=== PATIENT | female | born 1980 | race African-American/Black ===

== ENCOUNTER 2016-04-06 09:14 | Emergency (ER) | payer SELFPAY ==
[2016-04-06] MEDS ORDERED: DIAZEPAM INJ 10 MG/2 ML DISP.SYRIN IM ONE (10:20)
[2016-04-06] MEDS ORDERED: KETOROLAC TROMETHAMINE 60 MG/2 ML SDV IM ONE (10:20)
[2016-04-06] MEDS ORDERED: DEXAMETHASONE SOD PHOS INJ 10 MG/1 ML VIAL IM ONE (10:20)
--- NOTE | 2016-04-06 10:27 | ER Document Report ---
ED General - General Chief Complaint: Back Pain Stated Complaint: BACK PAIN Mode of Arrival: Medic Information source: Patient Notes: 35-year-old female who initially states she's never had any back problems in her life but then admits to having sciatic issues. Patient denies any numbness or weakness in the lower extremity's, denies any loss of bowel or bladder function. Patient notes it hurts when she moves yesterday she fell her back was tightening up patient denies any trauma or heavy lifting TRAVEL OUTSIDE OF THE [place] IN LAST 30 DAYS: No - HPI Onset: Yesterday Onset/Duration: Persistent Quality of pain: Achy Severity: Mild Pain Level: 1 Associated symptoms: Body/muscle aches Exacerbated by: Movement Relieved by: Denies Similar symptoms previously: No Recently seen / treated by doctor: Yes - Related Data Allergies/Adverse Reactions: amoxicillin [Amoxicillin] Allergy (Verified 04/06/16 09:25) Penicillins Allergy (Verified 04/06/16 09:25) Bees/Wasp Allergy (Uncoded 04/06/16 09:25) Past Medical History - Social History Smoking Status: Never Smoker Cigarette use (# per day): No Chew tobacco use (# tins/day): No Smoking Education Provided: No Frequency of alcohol use: None Drug Abuse: None Family History: Reviewed & Not Pertinent Patient has suicidal ideation: No Patient has homicidal ideation: No - Past Medical History Cardiac Medical History: Reports: Hx Hypercholesterolemia, Hx Hypertension Pulmonary Medical History: Reports: Hx Asthma, Hx Pneumonia Endocrine Medical History: Reports: Hx Diabetes Mellitus Type 2 Renal/ Medical History: Reports: Hx Kidney Stones. Denies: Hx Peritoneal Dialysis Psychiatric Medical History: Reports: Hx Anxiety, Hx Bipolar Disorder, Hx Depression Past Surgical History: Reports: Hx Cholecystectomy, Hx Herniorrhaphy, Hx Umbilical Hernia - Immunizations Immunizations up to date: No Hx Diphtheria, Pertussis, Tetanus Vaccination: Yes Hx Pneumococcal Vaccination: 07/28/15 Review of Systems - Review of Systems Notes: REVIEW OF SYSTEMS: CONSTITUTIONAL : Denies fever, chills, or sweats. Denies recent illness. EENT: Denies eye, ear, throat, or mouth pain or symptoms. Denies nasal or sinus congestion or discharge. Denies throat, tongue, or mouth swelling or difficulty swallowing. CARDIOVASCULAR: Denies chest pain. Denies palpitations or racing or irregular heart beat. Denies ankle edema. RESPIRATORY: Denies cough, cold, or chest congestion. Denies shortness of breath, difficulty breathing, or wheezing. GASTROINTESTINAL: Denies abdominal pain or distention. Denies nausea, vomiting , or diarrhea. Denies blood in vomitus, stools, or per rectum. Denies black, tarry stools. Denies constipation. GENITOURINARY: Denies difficulty urinating, painful urination, burning, frequency, blood in urine, or discharge. FEMALE GENITOURINARY: Denies vaginal bleeding, heavy or abnormal periods, irregular periods. Denies vaginal discharge or odor. MUSCULOSKELETAL: Admits to back pain SKIN: Denies rash, lesions or sores. HEMATOLOGIC : Denies easy bruising or bleeding. LYMPHATIC: Denies swollen, enlarged glands. NEUROLOGICAL: Denies confusion or altered mental status. Denies passing out or loss of consciousness. Denies dizziness or lightheadedness. Denies headache. Denies weakness or paralysis or loss of use of either side. Denies problems with gait or speech. Denies sensory loss, numbness, or tingling. Denies seizures. PSYCHIATRIC: Denies anxiety or stress. Denies depression, suicidal ideation, or homicidal ideation. ALL OTHER SYSTEMS REVIEWED AND NEGATIVE. Dictation was performed using [employer] voice recognition software PHYSICAL EXAMINATION: GENERAL: Well-appearing, well-nourished and in no acute distress. HEAD: Atraumatic, normocephalic. EYES: Pupils equal round and reactive to light, extraocular movements intact, conjunctiva are normal. ENT: Nares patent, oropharynx clear without exudates. Moist mucous membranes. NECK: Normal range of motion, supple without lymphadenopathy LUNGS: Breath sounds clear to auscultation bilaterally and equal. No wheezes rales or rhonchi. HEART: Regular rate and rhythm without murmurs ABDOMEN: Soft, nontender, nondistended abdomen. No guarding, no rebound. No masses appreciated. Female : deferred Musculoskeletal: Tenderness on palpation of the L1-L5 region NEUROLOGICAL: Cranial nerves grossly intact. Normal speech, normal gait. Normal sensory, motor exams PSYCH: Normal mood, normal affect. SKIN: Warm, Dry, normal turgor, no rashes or lesions noted. Physical Exam - Vital signs Vitals: Temp Pulse Resp BP Pulse Ox 97.7 F 81 20 176/94 H 97 04/06/16 09:23 04/06/16 09:23 04/06/16 09:23 04/06/16 09:23 04/06/16 09:23 Course - Re-evaluation Re-evalutation: 04/06/16 10:22 Given that there is no neurological deficits patient will be treated for her muscle tightness with steroids and anti-inflammatories. Patient has been instructed on side effects of medications After performing a Medical Screening Examination, I estimate there is LOW risk for EXPANDING OR RUPTURED ABDOMINAL AORTIC ANEURYSM, CAUDA EQUINA SYNDROME, EPIDURAL MASS LESION, or HERNIATED DISK CAUSING SEVERE SPINAL STENOSIS, thus I consider the discharge disposition reasonable. The patient and I have discussed the diagnosis and risks, and we agree with discharging home and close follow-up. We also discussed returning to the Emergency Department immediately if new or worsening symptoms occur with the understanding that symptoms and presentations can change. We have discussed the symptoms which are most concerning (e.g., saddle anesthesia, urinary or bowel incontinence or retention , changing or worsening pain) that necessitate immediate return. - Vital Signs Vital signs: Temp Pulse Resp BP Pulse Ox 97.7 F 81 20 176/94 H 97 04/06/16 09:23 04/06/16 09:23 04/06/16 09:23 04/06/16 09:23 04/06/16 09:23 Discharge - Discharge Clinical Impression: Back pain Qualifiers: Back pain location: low back pain Chronicity: acute Back pain laterality: bilateral Sciatica presence: without sciatica Qualified Code(s): M54.5 - Low back pain Condition: Stable Disposition: HOME, SELF-CARE Instructions: Low Back Pain ([facility]) Additional Instructions: Follow up with your physician tomorrow for further care or return to the ED IMMEDIATELY if symptoms worsen or new concerns occur Prescriptions: Diazepam [Valium 5 mg Tablet] 5 mg PO QIDP PRN #15 tablet PRN Reason: Hydrocodone/Acetaminophen [[place] 5-325 mg Tablet] 1 tab PO Q6 #10 tablet
[2016-04-06 10:42] VITALS: BP 152/91
== END 2016-04-06 11:39 | disposition home or self-care (01) ==
LOC: ER 09:14
DX: M54.5 Low back pain (principal); W19.XXXA Unspecified fall, initial encounter; E11.9 Type 2 diabetes mellitus without complications; I10 Essential (primary) hypertension; J45.909 Unspecified asthma, uncomplicated; Z88.0 Allergy status to penicillin; Z91.030 Bee allergy status; Z91.038 Other insect allergy status
CPT/HCPCS: 99283; 96372; J3360; J1885; J1100

== ENCOUNTER 2016-05-06 18:37 | Emergency (ER) | payer OTHER ==
[2016-05-06] MEDS ORDERED: ACETAMINOPHEN 325 MG TABLET PO ONE (19:01)
[2016-05-06] MEDS ORDERED: IPRATROPIUM/ALBUTEROL 0.5-2.5 MG/3 ML AMPUL NEB ONE (19:03)
--- NOTE | 2016-05-06 19:08 | ER Document Report ---
ED Medical Screen (RME) - General Stated Complaint: CHEST PAIN Mode of Arrival: Medic Information source: Patient Notes: 35-year-old female presents to the emergency department via EMS complaining of cough, shortness of breath, body aches, and fever over the last 2 days. Reports history of asthma. Was given Solu-Medrol 125 mg IV and DuoNeb treatment prior to arrival. I have greeted and performed a rapid initial assessment of this patient. A comprehensive ED assessment and evaluation of the patient, analysis of test results and completion of the medical decision making process will be conducted by additional ED providers. TRAVEL OUTSIDE OF THE [place] IN LAST 30 DAYS: No - Related Data Allergies/Adverse Reactions: amoxicillin [Amoxicillin] Allergy (Verified 05/06/16 19:02) Penicillins Allergy (Verified 05/06/16 19:02) Bees/Wasp Allergy (Uncoded 05/06/16 19:02) Past Medical History - Social History Chew tobacco use (# tins/day): No Frequency of alcohol use: None Drug Abuse: None Family history: CAD, DM, Hypertension, Malignancy - Past Medical History Cardiac Medical History: Reports: Hx Hypercholesterolemia, Hx Hypertension Pulmonary Medical History: Reports: Hx Asthma, Hx Pneumonia Endocrine Medical History: Reports: Hx Diabetes Mellitus Type 2 Renal/ Medical History: Reports: Hx Kidney Stones. Denies: Hx Peritoneal Dialysis Psychiatric Medical History: Reports: Hx Anxiety, Hx Bipolar Disorder, Hx Depression Past Surgical History: Reports: Hx Cholecystectomy, Hx Herniorrhaphy, Hx Umbilical Hernia - Immunizations Immunizations up to date: No Hx Diphtheria, Pertussis, Tetanus Vaccination: Yes Physical Exam - General General appearance: Alert In distress: Mild - Respiratory Respiratory status: No respiratory distress Breath sounds: Nonproductive cough, Wheezing - Expiratory - Cardiovascular Rhythm: Tachycardia Pulses: Normal: Radial Normal capillary refill: Yes
[2016-05-06] MEDS ORDERED: ALBUTEROL SULFATE 0.083% NEB 2.5 MG/3 ML AMPUL NEB SCH (19:19)
[2016-05-06] MEDS ORDERED: ONDANSETRON 4 MG TAB.RAPDIS PO ONE (19:52)
[2016-05-06 19:56] LABS: ABSOLUTE LYMPHOCYTES (AUTO) 0.9 10^3/uL (0.5-4.7); ABSOLUTE NEUT (AUTO) 10.7 10^3/uL (1.7-8.2); BASOPHILS % (AUTO) 0.2 % (0-2); EOSINOPHILS % (AUTO) 0.1 % (0-6); HEMATOCRIT 40.1 % (36.0-47.0); HEMOGLOBIN 13.4 g/dL (12.0-15.5); HGB HCT DIFFERENCE 0.1; LYMPHOCYTES % (AUTO) 7.2 % (13-45); MEAN CORPUSCULAR HEMOGLOBIN 25.2 pg (27.0-33.4); MEAN CORPUSCULAR HGB CONC 33.3 g/dL (32.0-36.0); MEAN CORPUSCULAR VOLUME 76 fl (80-97); MONOCYTES % (AUTO) 7.7 % (3-13); SEGMENTED NEUTROPHILS % (AUTO) 84.8 % (42-78); WHITE BLOOD COUNT 12.6 10^3/uL (4.0-10.5)
[2016-05-06 20:20] LABS: ALANINE AMINOTRANSFERASE 36 U/L (9-52); ALBUMIN 3.8 g/dL (3.5-5.0); ALKALINE PHOSPHATASE 72 U/L (38-126); ANION GAP 15 (5-19); ASPARTATE AMINO TRANSFERASE 26 U/L (14-36); BILIRUBIN,TOTAL 0.9 mg/dL (0.2-1.3); BLOOD UREA NITROGEN 11 mg/dL (7-20); CALCIUM 9.1 mg/dL (8.4-10.2); CARBON DIOXIDE 22 mmol/L (22-30); CHLORIDE 101 mmol/L (98-107); CREATININE RESULT 0.81 mg/dL (0.52-1.25); GLUCOSE 209 mg/dL (75-110); POTASSIUM 3.9 mmol/L (3.6-5.0); SODIUM 138.2 mmol/L (137-145); TOTAL PROTEIN 7.1 g/dL (6.3-8.2)
[2016-05-06 20:55] LABS: APPEARANCE,URINE SLIGHTLY-CLOUDY; BILIRUBIN,URINE NEGATIVE (NEGATIVE); GLUCOSE, URINE 50 mg/dL (NEGATIVE); KETONES,URINE TRACE mg/dL (NEGATIVE); LEUKOCYTE ESTERASE,URINE NEGATIVE (NEGATIVE); NITRITE,URINE NEGATIVE (NEGATIVE); PROTEIN,URINE NEGATIVE (NEGATIVE); URINE SPECIFIC GRAVITY 1.013; UROBILINOGEN,URINE NEGATIVE mg/dL (<2.0)
[2016-05-06] MEDS ORDERED: KETOROLAC TROMETHAMINE INJ/PF 30 MG/1 ML SDV IV ONE (22:56)
[2016-05-06] MEDS ORDERED: NORMAL SALINE 1000 ML 1,000 ML IV ONE (22:56)
[2016-05-06] MEDS ORDERED: AZITHROMYCIN 250 MG TABLET PO ONE (22:57)
--- NOTE | 2016-05-06 23:22 | ER Document Report ---
ED General - General Chief Complaint: Breathing Difficulty Stated Complaint: CHEST PAIN Mode of Arrival: Medic Notes: Patient is a 35 year old female presents for complaint of fevers, cough, chest pain. She says she has a slight headache. She says she was around a kid 2 days ago had fever and some of symptoms. She is a diabetic. She is type II and takes oral medications for this. She denies any vomiting or diarrhea. Fever of 102 in triage. She has some body aches. No other complaints at this time. TRAVEL OUTSIDE OF THE [place] IN LAST 30 DAYS: No - Related Data Allergies/Adverse Reactions: amoxicillin [Amoxicillin] Allergy (Verified 05/06/16 19:02) Penicillins Allergy (Verified 05/06/16 19:02) Bees/Wasp Allergy (Uncoded 05/06/16 19:02) Past Medical History - General Information source: Patient - Social History Smoking Status: Former Smoker Chew tobacco use (# tins/day): No Frequency of alcohol use: None Drug Abuse: None Family History: Reviewed & Not Pertinent Patient has suicidal ideation: No Patient has homicidal ideation: No - Past Medical History Cardiac Medical History: Reports: Hx Hypercholesterolemia, Hx Hypertension Pulmonary Medical History: Reports: Hx Asthma, Hx Pneumonia Endocrine Medical History: Reports: Hx Diabetes Mellitus Type 2 Renal/ Medical History: Reports: Hx Kidney Stones. Denies: Hx Peritoneal Dialysis Psychiatric Medical History: Reports: Hx Anxiety, Hx Bipolar Disorder, Hx Depression Past Surgical History: Reports: Hx Cholecystectomy, Hx Herniorrhaphy, Hx Umbilical Hernia - Immunizations Immunizations up to date: No Hx Diphtheria, Pertussis, Tetanus Vaccination: Yes Hx Pneumococcal Vaccination: 07/28/15 Review of Systems - Review of Systems Notes: My Normal Review Basic REVIEW OF SYSTEMS: CONSTITUTIONAL : Fever EENT: Nasal congestion CARDIOVASCULAR: Denies chest pain. RESPIRATORY: Recurrent cough GASTROINTESTINAL: Denies abdominal pain. Denies nausea, vomiting, or diarrhea. Denies constipation. Last BM: FEMALE GENITOURINARY: Denies vaginal bleeding, abnormal or irregular periods. No dysuria MUSCULOSKELETAL: Denies neck or back pain or joint pain or swelling. SKIN: Denies rash or skin lesions. NEUROLOGICAL: Denies altered mental status or loss of consciousness. Denies headache. Denies weakness or paralysis or loss of use of either side. Denies problems with gait or speech. Denies sensory or motor loss. ALL OTHER SYSTEMS REVIEWED AND NEGATIVE. Physical Exam - Vital signs Vitals: Temp Pulse Resp BP Pulse Ox 102.3 F H 124 H 28 H 154/93 H 94 05/06/16 19:02 05/06/16 19:02 05/06/16 19:02 05/06/16 19:02 05/06/16 19:02 - Notes Notes: General Appearance: Well nourished, alert, cooperative, no acute distress, no obvious discomfort. Vitals: reviewed, See vital signs table. Head: no swelling or tenderness to the head Eyes: PERRL, EOMI, Conjuctiva clear Mouth: No decreasd moisture Throat: No tonsillar inflammation, No airway obstruction, No lymphadenopathy Neck: Supple, no neck tenderness, No thyromegaly Lungs: No wheezing, No rales, No rhonci, No accessory muscle use, good air exchange bilaterally. Heart: Normal rate, Regular rythm, No murmur, no rub Abdomen: Normal BS, soft, No rigidity, No abdominal tenderness, No guarding, no rebound, no abdominal masses, no organomegaly Extremities: strength 5/5 in all extremities, good pulses in all extremities, no swelling or tenderness in the extremities, no edema. Skin: warm, dry, appropriate color, no rash Neuro: speech clear, oriented x 3, normal affect, responds appropriately to questions. Course - Vital Signs Vital signs: Temp Pulse Resp BP Pulse Ox 98.6 F 90 16 137/81 H 94 05/07/16 01:24 05/07/16 01:24 05/07/16 01:24 05/07/16 01:24 05/07/16 01:24 - Laboratory Result Diagrams: 05/06/16 19:40 05/06/16 19:40 Laboratory results interpreted by me: 05/06/16 05/06/16 05/06/16 19:40 19:40 20:30 WBC 12.6 H RBC 5.30 H MCV 76 L MCH 25.2 L RDW 16.0 H Seg Neutrophils % 84.8 H Lymphocytes % 7.2 L Absolute Neutrophils 10.7 H Glucose 209 H Urine Glucose (UA) 50 H Urine Ketones TRACE H Urine Ascorbic Acid 20 H - Transfer of Care Notes: 05/07/16 06:21 Patient looks well and reevaluation. Her vital signs are normal. Fevers resolved. I feel she is safe to be discharged home. I encourage them to return to the ER if she has difficulty breathing, high fevers, or she feels that she is worsening. Patient agrees with plan and will be discharged home. Dictation of this chart was performed using voice recognition software; therefore, there may be some unintended grammatical errors. 05/07/16 06:21 Discharge - Discharge Clinical Impression: Cough, bodyaches Fever Qualifiers: Fever type: unspecified Qualified Code(s): R50.9 - Fever, unspecified Condition: Good Disposition: HOME, SELF-CARE Additional Instructions: Please take the medications as prescribed. Please take Tylenol or Motrin for your fevers. Please return to the ER if you have worsening difficulty breathing , high fevers, recurrent vomiting, or feel unwell. Please follow up with your doctor for reevaluation in 1-2 days. Forms: Return to Work
[2016-05-07 01:31] VITALS: BP 137/81
--- NOTE | 2016-05-07 16:56 | EKG REPORT ---
SEVERITY:- ABNORMAL ECG - SINUS TACHYCARDIA ABNORMAL Q SUGGESTS ANTERIOR INFARCT ABNORMAL T, CONSIDER ISCHEMIA, LATERAL LEADS : Confirmed by: Heaven Marshall MD 07-May-2016 16:55:29
== END 2016-05-07 01:33 | disposition home or self-care (01) ==
LOC: ER 18:37
DX: R05 Cough (principal); R07.9 Chest pain, unspecified; R50.9 Fever, unspecified; R51 Headache; J45.909 Unspecified asthma, uncomplicated; R09.81 Nasal congestion; E11.9 Type 2 diabetes mellitus without complications; I10 Essential (primary) hypertension; Z79.84 Long term (current) use of oral hypoglycemic drugs; Z88.0 Allergy status to penicillin; Z91.030 Bee allergy status; Z91.038 Other insect allergy status; Z87.891 Personal history of nicotine dependence; Z87.01 Personal history of pneumonia (recurrent)
CPT/HCPCS: 93005; 94640 ×2; 99285; 96361; 96374; 36415; 85025; 81025; 80053; 81001; 87804; 71020; 93010; S0119; J1885; J7030; J7620

== ENCOUNTER 2016-05-08 05:52 | Emergency (ER) | payer OTHER ==
--- NOTE | 2016-05-08 06:15 | ER Document Report ---
ED Respiratory Problem - General Mode of Arrival: Medic Information source: Patient TRAVEL OUTSIDE OF THE [place] IN LAST 30 DAYS: No - HPI Patient complains to provider of: Other - Difficulty breathing Onset: Yesterday - evening Associated symptoms: Other - See above <LAURA BASS - Last Filed: 05/08/16 06:29> <DIAMANTE VICK - Last Filed: 05/08/16 10:11> - General Chief Complaint: Breathing Difficulty Stated Complaint: DIFFICULTY BREATHING Notes: Patient is a 35 year old female, with a past medical history including type II diabetes and asthma, who presents to the emergency department via EMS complaining of difficulty breathing onset yesterday evening. Patient also complains of a productive cough with spit-like sputum which has now become a dry and painful cough, fevers, and congestion. Patient reports that she has been using her inhaler and nebulizer treatments at home with little to no relief. Patient was seen at this facility two days ago for similar complaints and was given breathing treatments, Toradol, IV fluids, and Zithromax. Patient states that she was feeling better when she went home yesterday but that it worsened again last night. PCP: [facility] (LAURA BASS) - Related Data Allergies/Adverse Reactions: amoxicillin [Amoxicillin] Allergy (Verified 05/06/16 19:02) Penicillins Allergy (Verified 05/06/16 19:02) Bees/Wasp Allergy (Uncoded 05/06/16 19:02) Past Medical History - General Information source: Patient - Social History Smoking Status: Unknown if Ever Smoked Family History: Reviewed & Not Pertinent - Past Medical History Cardiac Medical History: Reports: Hx Hypercholesterolemia, Hx Hypertension Pulmonary Medical History: Reports: Hx Asthma, Hx Pneumonia Endocrine Medical History: Reports: Hx Diabetes Mellitus Type 2 Renal/ Medical History: Reports: Hx Kidney Stones Psychiatric Medical History: Reports: Hx Anxiety, Hx Bipolar Disorder, Hx Depression Past Surgical History: Reports: Hx Cholecystectomy, Hx Herniorrhaphy, Hx Umbilical Hernia - Immunizations Immunizations up to date: No Hx Diphtheria, Pertussis, Tetanus Vaccination: Yes Hx Pneumococcal Vaccination: 07/28/15 <LAURA BASS - Last Filed: 05/08/16 06:29> Review of Systems - Review of Systems Constitutional: See HPI, Fever EENT: See HPI, Nose congestion Cardiovascular: No symptoms reported Respiratory: See HPI, Cough, Sputum - saliva-like, Other - Difficulty breathing Gastrointestinal: No symptoms reported Genitourinary: No symptoms reported Female Genitourinary: No symptoms reported Musculoskeletal: No symptoms reported Skin: No symptoms reported Hematologic/Lymphatic: No symptoms reported Neurological/Psychological: No symptoms reported -: Yes All other systems reviewed and negative <LAURA BASS - Last Filed: 05/08/16 06:29> Physical Exam - Vital signs Interpretation: Tachypneic - mild - General General appearance: Appears well, Alert - HEENT Head: Normocephalic, Atraumatic Pharynx: Normal - Respiratory Respiratory status: Tachypnea - mild Breath sounds: Nonproductive cough, Wheezing - Diffuse expiratory Chest palpation: Normal - Cardiovascular Rhythm: Regular Heart sounds: Normal auscultation Murmur: No - Abdominal Inspection: Morbidly Obese - Back Back: Normal, Nontender - Extremities General upper extremity: Normal inspection General lower extremity: Normal inspection - Neurological Neuro grossly intact: Yes Cognition: Normal Orientation: AAOx4 Cassandra Coma Scale Eye Opening: Spontaneous Cassandra Coma Scale Verbal: Oriented Cassandra Coma Scale Motor: Obeys Commands Cassanrda Coma Scale Total: 15 Speech: Normal - Psychological Associated symptoms: Normal affect, Normal mood - Skin Skin Temperature: Warm Skin Moisture: Dry Skin Color: Normal <LAURA BASS - Last Filed: 05/08/16 06:29> Course <LAURA BASS - Last Filed: 05/08/16 06:29> - Laboratory Result Diagrams: 05/08/16 06:55 05/08/16 06:55 - Diagnostic Test Radiology reviewed: Image reviewed, Reports reviewed - Chest x-ray shows reactive airways disease without infiltrate <DIAMANTE VICK - Last Filed: 05/08/16 10:11> - Re-evaluation Re-evalutation: 05/08/16 08:25 The patient's blood pressure is quite high. She states she takes her lisinopril in the mornings and takes her metoprolol morning and evening. She also takes hydrochlorothiazide in the morning. She did not have any of her morning medications prior to coming to the emergency room. She reports her blood sugars usually run around 200 when she checks at home. She does not check her blood pressure home. Her blood sugar is 381 today with an A1c of 9.6, she was not put on steroids when she was here 2 days ago. She takes glipizide and metformin twice daily, along with Victoza. She states that she has lost a lot of weight, reviewing the chart shows at least a 60 pound weight loss in the past year. (DIAMANTE VICK) - Vital Signs Vital signs: Temp Pulse Resp BP Pulse Ox 98.9 F 34 H 144/97 H 87 L 05/08/16 07:39 05/08/16 09:06 05/08/16 09:06 05/08/16 09:01 (LAURA BASS) (DIAMANTE VICK) - Laboratory Laboratory results interpreted by me: 05/08/16 05/08/16 05/08/16 06:55 06:55 06:55 MCV 77 L MCH 25.4 L RDW 15.8 H Glucose 381 H Hemoglobin A1c % 9.6 H (DIAMANTE VICK) Discharge <LAURA BASS - Last Filed: 05/08/16 06:29> <DIAMANTE VICK - Last Filed: 05/08/16 10:11> - Discharge Clinical Impression: Acute bronchitis with bronchospasm, Poorly controlled diabetes mellitus, Poorly -controlled hypertension, Wheezing Condition: Stable Disposition: HOME, SELF-CARE Additional Instructions: Bronchitis with Bronchospasm (Wheezing): You have bronchitis with bronchospasm (wheezing). Sometimes people develop wheezing with a chest cold. This occurs either because of an underlying tendency toward asthma or because the virus itself irritates the bronchial tubes. This irritation causes cough, shortness of breath, and wheezing. Emergency treatment of bronchospasm may include adrenaline shots or bronchodilator aerosol. You may feel lightheaded and have a rapid pulse for an hour or two. Rest and get plenty of fluids. At home, we'll treat you with a bronchodilator inhaler. Corticosteroids may be required for some patients. Until you recover, avoid chemical fumes, dusts, pollens, and exercising in very cold or dry air. If you smoke, stop now! Most cases of bronchitis get better without antibiotics. We prescribe antibiotics when we believe bacteria are damaging your airways, or if there's high risk the bronchitis will worsen into pneumonia. Increase your fluid intake. A cool mist humidifier may make your lungs more comfortable. An expectorant (cough medicine that loosens phlegm) can help. Repeated episodes of bronchitis and bronchospasm may result in lung damage -- for example, chronic bronchitis, recurrent pneumonias, or emphysema. If you develop a fever, increased wheezing, chest pain, or severe shortness of breath, you should contact the doctor immediately. //////////////////////////////////////////////////////////////////////////////// //////////////////////////////////////////////////////////////////////////////// /////////////// Your blood pressure and blood sugars were quite high this morning. You will need additional medications to get better control of your blood pressure and blood sugars. For now you should continue your regular medications. Use the albuterol inhaler 2 puffs every 4 hours for wheezing. Start the prednisone prescription tomorrow--this will make your blood sugars run higher so you will need to drink plenty of extra water. Start the azithromycin ascription tomorrow. Get plenty of rest. Follow-up with a local medical doctor this week to review your blood pressure and blood sugar control. You will probably need additional medications. RETURN TO THE EMERGENCY ROOM IF ANY NEW OR WORSENING SYMPTOMS. Prescriptions: Azithromycin [Zithromax 250 mg Tablet] 250 mg PO DAILY #4 tablet Prednisone 10 mg PO TID #15 tablet Scribe Attestation: 05/08/16 10:11 I personally performed the services described in the documentation, reviewed and edited the documentation which was dictated to the scribe in my presence, and it accurately records my words and actions. (DIAMANTE VICK) Scribe Documentation - Scribe Written by Anderson:: anderson Frederick, 05/08/16, 0634 acting as scribe for :: [place] <BASS,LAURA - Last Filed: 05/08/16 06:29>
[2016-05-08] MEDS ORDERED: ALBUTEROL SULFATE 0.083% NEB 2.5 MG/3 ML AMPUL NEB ONE ×2 (06:18→07:46)
[2016-05-08] MEDS ORDERED: PREDNISONE 20 MG TABLET PO ONE (06:18)
[2016-05-08 07:01] LABS: ABSOLUTE MONOCYTES (AUTO) 0.9 10^3/uL (0.1-1.4); ABSOLUTE NEUT (AUTO) 5.3 10^3/uL (1.7-8.2); BASOPHILS % (AUTO) 0.3 % (0-2); HEMATOCRIT 39.6 % (36.0-47.0); HGB HCT DIFFERENCE -0.6; LYMPHOCYTES % (AUTO) 13.9 % (13-45); MEAN CORPUSCULAR HEMOGLOBIN 25.4 pg (27.0-33.4); MEAN CORPUSCULAR HGB CONC 32.9 g/dL (32.0-36.0); MEAN CORPUSCULAR VOLUME 77 fl (80-97); MONOCYTES % (AUTO) 12.3 % (3-13); RED BLOOD COUNT 5.13 10^6/uL (3.72-5.28); RED CELL DISTRIBUTION WIDTH 15.8 % (11.5-14.0); SEGMENTED NEUTROPHILS % (AUTO) 73.5 % (42-78); WHITE BLOOD COUNT 7.2 10^3/uL (4.0-10.5)
[2016-05-08 07:15] LABS: ALANINE AMINOTRANSFERASE 40 U/L (9-52); ALKALINE PHOSPHATASE 62 U/L (38-126); ANION GAP 12 (5-19); ASPARTATE AMINO TRANSFERASE 35 U/L (14-36); BILIRUBIN,TOTAL 0.5 mg/dL (0.2-1.3); BLOOD UREA NITROGEN 13 mg/dL (7-20); CALCIUM 8.8 mg/dL (8.4-10.2); CARBON DIOXIDE 24 mmol/L (22-30); CHLORIDE 105 mmol/L (98-107); GLUCOSE 381 mg/dL (75-110); POTASSIUM 4.1 mmol/L (3.6-5.0); TOTAL PROTEIN 6.8 g/dL (6.3-8.2)
[2016-05-08] MEDS ORDERED: CLONIDINE HCL 0.2 MG TABLET PO ONE (07:51)
[2016-05-08] MEDS ORDERED: METOPROLOL TARTRATE 25 MG TABLET PO ONE (08:31)
[2016-05-08] MEDS ORDERED: INSULIN REG, HUMAN 100 UNIT/ML 3 ML VIAL (PYX) SUBCUT ONE (08:32)
[2016-05-08] MEDS ORDERED: ONDANSETRON 4 MG TAB.RAPDIS PO ONE (09:14)
[2016-05-08] MEDS ORDERED: AZITHROMYCIN 250 MG TABLET PO ONE (10:06)
[2016-05-08] MEDS ORDERED: ALBUTEROL SULFATE HFA (90 MCG/PUFF) 8 GM MDI (1 MDI/ER DISP) IH ONE (10:07)
[2016-05-08 10:14] VITALS: BP 138/94
== END 2016-05-08 10:25 | disposition home or self-care (01) ==
LOC: ER 05:52
DX: J20.9 Acute bronchitis, unspecified (principal); E11.9 Type 2 diabetes mellitus without complications; I10 Essential (primary) hypertension; R06.02 Shortness of breath; J45.909 Unspecified asthma, uncomplicated; Z79.899 Other long term (current) drug therapy
CPT/HCPCS: 94640 ×2; 99285; 36415; 84703; 85025; 80053; 83036; 71020; S0119; J7512; J1815; J3490

== ENCOUNTER 2016-05-09 19:27 | Inpatient (IN) | payer OTHER ==
[2016-05-09] MEDS ORDERED: NORMAL SALINE 1000 ML 1,000 ML IV ONE (19:44)
[2016-05-09] MEDS ORDERED: ONDANSETRON HCL INJ/PF 4 MG/2 ML SDV IV ONE (19:44)
[2016-05-09] MEDS ORDERED: IPRATROPIUM/ALBUTEROL 0.5-2.5 MG/3 ML AMPUL NEB ONE (19:45)
--- NOTE | 2016-05-09 19:47 | ER Document Report ---
ED Respiratory Problem - General Stated Complaint: DIFFICULTY BREATHING Time seen by provider: 19:40 Notes: Patient is a 35-year-old female that comes emergency department for chief complaint of difficulty breathing, patient has a history of asthma, is using her inhaler/nebulizer at home, placed on prednisone and azithromycin yesterday after being evaluated. She states she has been sick for 4 days now, initially she had daily nausea and vomiting with fevers, now she has frequent cough with fevers and frequent wheezing. She has not had influenza vaccine. She states she has not slept for a couple of days because she cannot lie flat. Patient has had admissions to the hospital for asthma and pneumonia, denies ever getting intubated. TRAVEL OUTSIDE OF THE [place] IN LAST 30 DAYS: No - Related Data Allergies/Adverse Reactions: amoxicillin [Amoxicillin] Allergy (Verified 05/06/16 19:02) Penicillins Allergy (Verified 05/06/16 19:02) Bees/Wasp Allergy (Uncoded 05/06/16 19:02) Past Medical History - General Information source: Patient - Social History Smoking Status: Never Smoker Frequency of alcohol use: None Drug Abuse: None Lives with: Family Family History: Reviewed & Not Pertinent - Past Medical History Cardiac Medical History: Reports: Hx Hypercholesterolemia, Hx Hypertension Pulmonary Medical History: Reports: Hx Asthma, Hx Pneumonia Endocrine Medical History: Reports: Hx Diabetes Mellitus Type 2 Renal/ Medical History: Reports: Hx Kidney Stones. Denies: Hx Peritoneal Dialysis Psychiatric Medical History: Reports: Hx Anxiety, Hx Bipolar Disorder, Hx Depression Past Surgical History: Reports: Hx Cholecystectomy, Hx Herniorrhaphy, Hx Umbilical Hernia - Immunizations Immunizations up to date: No Hx Diphtheria, Pertussis, Tetanus Vaccination: Yes Hx Pneumococcal Vaccination: 07/28/15 Review of Systems - Review of Systems Constitutional: See HPI EENT: No symptoms reported Cardiovascular: No symptoms reported Respiratory: See HPI Gastrointestinal: No symptoms reported Genitourinary: No symptoms reported Female Genitourinary: No symptoms reported Musculoskeletal: No symptoms reported Skin: No symptoms reported Hematologic/Lymphatic: No symptoms reported Neurological/Psychological: No symptoms reported Physical Exam - Vital signs Vitals: Resp 15 05/09/16 19:34 Interpretation: Normal - General General appearance: Anxious In distress: Mild - Patient is audibly wheezing with tachypnea - HEENT Head: Normocephalic, Atraumatic Eyes: Normal Conjunctiva: Normal Extraocular movements intact: Yes Eyelashes: Normal Pupils: PERRL Nasal: Normal Mouth/Lips: Normal Mucous membranes: Normal Pharynx: Normal Neck: Normal - Respiratory Respiratory status: Labored, Tachypnea Breath sounds: Decreased air movement, Wheezing - Wheezing bilaterally throughout - Cardiovascular Rhythm: Regular. No: Tachycardia Heart sounds: Normal auscultation, S1 appreciated, S2 appreciated Murmur: No - Abdominal Inspection: Normal Distension: No distension Bowel sounds: Normal Tenderness: Nontender. No: Tender, Guarding - Back Back: Normal, Nontender. No: Tender - Extremities General upper extremity: Normal inspection, Nontender, Normal strength, Normal temperature General lower extremity: Normal inspection, Nontender, Normal strength, Normal temperature - Neurological Neuro grossly intact: Yes Cognition: Normal Orientation: AAOx4 Kiel Coma Scale Eye Opening: Spontaneous Cassandra Coma Scale Verbal: Oriented Cassandra Coma Scale Motor: Obeys Commands Kiel Coma Scale Total: 15 Speech: Normal Cranial nerves: Normal Cerebellar coordination: Normal Motor strength normal: LUE, RUE, LLE, RLE Additional motor exam normals: Equal copy lathe tender Sensory: Normal - Psychological Associated symptoms: Anxious - Skin Skin Temperature: Warm Skin Moisture: Dry Skin Color: Normal Course - Re-evaluation Re-evalutation: On initial examination patient with tachypnea, decreased air movement and wheezes throughout, no tachycardia, patient is not hypoxic at this time, placed on 4 L nasal cannula, will monitor closely. On reevaluation patient noted to still have tachypnea, oxygen is trending down to the lower 90s even on 4 L nasal cannula, patient does not have significant improvement in wheezing, placed on BiPAP. Discussed with Dr. Byrd per [facility] protocol. After initiating BiPAP patient began to relax, still has wheezing but respiratory distress has resolved. Hypoxia resolved. CBC, chemistry, VBG, chest x-ray unremarkable. Chest x-ray is unremarkable. Patient continues to appear improved although she still has wheezing on examination. 05/10/[address] Alatorre, internal medicine, patient will be admitted to [facility]. - Vital Signs Vital signs: Temp Pulse Resp BP Pulse Ox 98.8 F 23 H 138/90 H 94 05/09/16 20:06 05/10/16 04:45 05/10/16 04:31 05/10/16 04:45 - Laboratory Result Diagrams: 05/09/16 20:06 05/09/16 20:06 Laboratory results interpreted by me: 05/09/16 05/09/16 05/09/16 20:06 20:06 20:06 RBC 5.59 H MCV 77 L MCH 25.0 L RDW 15.6 H Sodium 135.9 L Chloride 97 L Glucose 241 H Creatine Kinase 219 H Urine Glucose (UA) 05/09/16 05/10/16 20:56 00:38 RBC MCV MCH RDW Sodium Chloride Glucose Creatine Kinase 188 H Urine Glucose (UA) 150 H Critical Care Note - Critical Care Note Total time excluding time spent on procedures (mins): 34 - respiratory distress , has exacerbation, hypoxia Comments: Please allow 35 minutes of critical care time for treatment of patient with asthma exacerbation and respiratory distress with hypoxia, treatments with DuoNeb's, oxygen, magnesium, and BiPAP therapy. Multiple re-evaluations. Consultation and admission to the hospital. Discharge - Discharge Clinical Impression: Asthma exacerbation, Hypoxia, Cough, Shortness of breath Condition: Stable Disposition: ADMITTED INPATIENT Admitting Provider: Hospitalist Unit Admitted: [facility]
[2016-05-09] MEDS: MAGNESIUM SULFATE/D5W 100 ML IV SCH ×2 (20:08→21:17)
[2016-05-09 20:44] LABS: ABSOLUTE LYMPHOCYTES (AUTO) 2.4 10^3/uL (0.5-4.7); ABSOLUTE MONOCYTES (AUTO) 0.7 10^3/uL (0.1-1.4); ABSOLUTE NEUT (AUTO) 6.2 10^3/uL (1.7-8.2); BASOPHILS % (AUTO) 0.5 % (0-2); EOSINOPHILS % (AUTO) 0.1 % (0-6); HEMATOCRIT 42.9 % (36.0-47.0); HGB HCT DIFFERENCE -0.9; LYMPHOCYTES % (AUTO) 25.8 % (13-45); MEAN CORPUSCULAR HGB CONC 32.6 g/dL (32.0-36.0); MEAN CORPUSCULAR VOLUME 77 fl (80-97); MONOCYTES % (AUTO) 7.3 % (3-13); RED BLOOD COUNT 5.59 10^6/uL (3.72-5.28); RED CELL DISTRIBUTION WIDTH 15.6 % (11.5-14.0); SEGMENTED NEUTROPHILS % (AUTO) 66.3 % (42-78); WHITE BLOOD COUNT 9.4 10^3/uL (4.0-10.5)
[2016-05-09 20:59] LABS: ALANINE AMINOTRANSFERASE 35 U/L (9-52); ALBUMIN 3.9 g/dL (3.5-5.0); ALKALINE PHOSPHATASE 67 U/L (38-126); ANION GAP 13 (5-19); ASPARTATE AMINO TRANSFERASE 28 U/L (14-36); BILIRUBIN,TOTAL 0.6 mg/dL (0.2-1.3); BLOOD UREA NITROGEN 14 mg/dL (7-20); CALCIUM 9.3 mg/dL (8.4-10.2); CARBON DIOXIDE 26 mmol/L (22-30); CHLORIDE 97 mmol/L (98-107); CREATININE RESULT 0.76 mg/dL (0.52-1.25); GLUCOSE 241 mg/dL (75-110); POTASSIUM 3.8 mmol/L (3.6-5.0); SODIUM 135.9 mmol/L (137-145); TOTAL PROTEIN 6.7 g/dL (6.3-8.2)
[2016-05-09 21:14] LABS: VENOUS BLOOD BASE EXCESS 2.3 mmol/L; VENOUS BLOOD PCO2 42.4 mmHg (35-63); VENOUS BLOOD PH 7.42 (7.30-7.42)
[2016-05-09 21:26] LABS: APPEARANCE,URINE CLEAR; BILIRUBIN,URINE NEGATIVE (NEGATIVE); GLUCOSE, URINE 150 mg/dL (NEGATIVE); KETONES,URINE NEGATIVE (NEGATIVE); LEUKOCYTE ESTERASE,URINE NEGATIVE (NEGATIVE); NITRITE,URINE NEGATIVE (NEGATIVE); PROTEIN,URINE NEGATIVE (NEGATIVE); URINE SPECIFIC GRAVITY 1.011; UROBILINOGEN,URINE NEGATIVE mg/dL (<2.0)
[2016-05-09 22:59] LABS: ADD ON TESTING BLD IN LAB ACKNOWLEDGE
[2016-05-09 23:17] LABS: CREATINE KINASE 219 U/L (30-135)
[2016-05-09 23:28] LABS: CREATINE KINASE MB 1.01 ng/mL (<4.55)
[2016-05-09 23:35] LABS: TROPONIN I 0.082 ng/mL
[2016-05-10 01:10] LABS: VENOUS BLOOD BASE EXCESS 1.5 mmol/L; VENOUS BLOOD HCO3 26.7 mmol/L (20-32); VENOUS BLOOD PCO2 44.2 mmHg (35-63); VENOUS BLOOD PH 7.4 (7.30-7.42)
[2016-05-10] MEDS ORDERED: DEXTROSE 40% GEL 15 GM TUBE PO PRN ×2 (01:19)
[2016-05-10] MEDS ORDERED: GLUCAGON,HUMAN RECOMB 1 MG INJ IM PRN (01:19)
[2016-05-10] MEDS ORDERED: DEXTROSE 50%-WATER 25 GM/50 ML DISP.SYRIN IV PRN ×2 (01:19)
[2016-05-10 01:22] LABS: CREATINE KINASE MB 0.95 ng/mL (<4.55); TROPONIN I 0.078 ng/mL
[2016-05-10] MEDS ORDERED: ALBUTEROL SULFATE 0.083% NEB 2.5 MG/3 ML AMPUL NEB PRN (01:25)
[2016-05-10] MEDS ORDERED: AZTREONAM INJ 1 GM VIAL IV PRN (01:30)
[2016-05-10] MEDS ORDERED: POTASSI CL 20 MEQ/NS 1L 1,000 ML IV PRN (01:30)
--- NOTE | 2016-05-10 01:45 | PDOC H&P ---
History of Present Illness Admission Date/PCP: 05/10/16 01:00 [facility] Patient complains of: Difficulty breathing History of Present Illness: DAYTON MENDOZA is a 35 year old morbidly obese [id number] diabetic -[place] female, with underlying asthma, possible coronary artery disease, hyperlipidemia, hypertension, distant history of peptic ulcer disease, eczema, and mild anxiety and depression, without suicidal or homicidal ideation , who presents to the emergency room for evaluation of a four-day history of slowly progressive difficulty breathing. Breathing difficulty is particularly noticeable with much of any exertion. Associated wheezing, along with nausea vomiting and subjective fever. Cough productive of phlegm. Breathing more comfortably now that she dottie been placed on BiPAP. Was seen in the emergency room on the and given prescriptions for prednisone and Zithromax, but these are still with pharmacy, and have not been picked up. She states She's had multiple admissions for asthma exacerbation over the past year. No prior intubation. Up-to-date with both flu and pneumonia vaccinations. 2-year-old niece with cough and fever recently. Intermittent chest discomfort, usually when her shortness of breath is at its worst. Currently pain-free. Patient has been discussed with emergency room nurse practitioner who evaluated the patient. . Laboratory results are listed in [facility] and are reviewed. X-ray summary results are listed below, with full report(s) reviewed. . EKG reviewed. And compared to a tracing from the of this month. Social history/personal habits: Single. No children. Unemployed. Lives alone. No tobacco or illicit drug use. A bottle of wine every 2 weeks. Allergies/adverse reactions are listed in [facility] and are reviewed. Uncertain if she can tolerate cephalosporins. Home medications are reviewed discussion with patient and are to be reconciled by nursing staff in [facility]. Home medications initially autopopulated into [employer] may not accurately reflect patient's true medications, dosages, and/or frequencies. REVIEW OF SYSTEMS: Constitutional: See history and present illness. Eyes: Wears glasses. ENT: No swallowing problems or complaints. No hearing problems or complaints. Pulmonary: See history and present illness. Cardiovascular: See history and present illness. Gastrointestinal: See history and present illness. Skin: No current complaints, including rashes. Hematologic: Easy bruising. Neurologic: No current complaints, including numbness or tingling. Musculoskeletal: No current complaints, including painful joints. Psychiatric: Mild Anxiety depression; denies suicidal or homicidal ideation. Endocrine: No current complaints, including polyuria. Genitourinary: No current complaints, including dysuria. PHYSICAL EXAMINATION: 5 feet 11 inches tall. 139 kg. BMI 42.7 kg/m. Temperature 98.3. 96% saturation on BiPAP 12/6, 35%. Respirations are 30, without obvious use of accessory respiratory muscles. Pulse 84 and regular. Morbidly obese otherwise well-developed -[place] female appearing approximately her stated age. Pleasant awake alert and cooperative. Somewhat anxious, although no lavon agitation. Maintaining airway well. BiPAP mask in place. Emergency room nurse Shala is present. Skin is warm and dry. No grossly obvious evidence of rash in areas of skin examined. No subcutaneous nodules palpated. ENT: Hearing grossly normal to normal conversation. Tongue midline on protrusion pink and slightly tacky. Exam slightly limited by BiPAP mask with attaching straps. Eyes: No scleral icterus. Pupils equal and reactive to light at 4 mm. [place] conjunctivae. Neck is supple and nontender to gentle active range of motion and palpation. Midline trachea. No palpable thyroid nodule mass enlargement or tenderness. Lymphatic: No palpable cervical or clavicular nodes. Neck and lymphatic exams limited by patient body habitus. Exam slightly limited by BiPAP mask with attaching straps. Psychiatric: Reasonable insight into acute and chronic medical issues. Oriented to time location and why here. Lungs: Auscultation reveals equal breath sounds bilaterally. Breath sounds are somewhat "tight." No use of accessory respiratory muscles. Brief mild expiratory wheezing, in the mid aspect of each hemithorax. Cardiovascular: Heart regular rate and rhythm, without gallop murmur or rub. No carotid or abdominal aortic bruits. No ankle or pedal edema. palpable dorsalis pedis pulses. Abdomen: soft, rather obese, nontender with positive bowel sounds. Unable to adequately evaluate abdomen for masses or organomegaly due to body habitus. Extremities: Feet are warm and dry. No calf tenderness to compression. No grossly obvious visual evidence of calf swelling. Gentle manipulation of lower extremities fails to reveal any obvious evidence of injury or instability to knees hips or ankles. Neurologic: Moves all 4 extremities grossly normally. Moves from supine to seated position without undue difficulty. Patellar reflexes absent. Absent Babinski. Light touch is slightly decreased at feet, a chronic finding according to patient.. Dorsiflexion and plantarflexion of feet 5 / 5 and symmetric. Past Medical History Cardiac Medical History: Reports: Hyperlipidema, Hypertension Pulmonary Medical History: Reports: Asthma, Pneumonia Neurological Medical History: Denies: Hemorrhagic CVA, Ischemic CVA, Seizures Endocrine Medical History: Reports: Diabetes Mellitus Type 2 Denies: Diabetes Mellitus Type 1 GI Medical History: Denies: Cirrhosis, Crohn's Disease, Hepatitis Psychiatric Medical History: Reports: Bipolar Disorder, Depression Infectious Medical History: Denies: Hepatitis B, Hepatitis C Past Surgical History Past Surgical History: Reports: Cholecystectomy, Herniorrhaphy Social History Information Source: Patient, Emergency Med Personnel, [facility], [facility] Records Lives with: Alone Frequency of Alcohol Use: Occasional Hx Recreational Drug Use: No Drugs: None Hx Prescription Drug Abuse: No - Advance Directive Resuscitation Status: Full Code Surrogate healthcare decision maker:: Mother Family History Family History: Reviewed & Not Pertinent Parental Family History Reviewed: Yes Children Family History Reviewed: NA Sibling(s) Family History Reviewed.: Yes Medication/Allergy Home Medications: Glipizide [Glucotrol 5 mg Tablet] 5 mg PO BIDACBS #60 tablet 04/15/15 Metformin HCl [Glucophage] 1,000 mg PO BID #60 tablet 04/15/15 Albuterol Sulfate [Ventolin Hfa 8 gm Mdi (1 Mdi/ER Disp)] 2 puff IH Q4HP PRN #1 inhaler 07/01/15 Fluticasone/Salmeterol [Advair 250-50 Diskus 14 Dose/Diskus] 1 inh IH Q12 #1 inhaler 07/01/15 Lisinopril [Prinivil 10 mg Tablet] 20 mg PO DAILY #30 tablet 07/01/15 Metoprolol Tartrate 25 mg PO BID 07/27/15 Ipratropium/Albuterol Sulfate [Duoneb 3 ml Ampul] 3 ml NEB RTQ6HP PRN #120 vial.neb 07/28/15 Montelukast Sodium [Singulair 10 mg Tablet] 10 mg PO QHS #30 tablet 07/28/15 Esomeprazole Magnesium [Nexium] 40 mg PO DAILY #30 capsule. 08/29/15 Aspirin [Ecotrin 81 mg EC Tablet] 81 mg PO DAILY #30 tbs 09/06/15 Atorvastatin Calcium [Lipitor 10 mg Tablet] 10 mg PO QHS #30 tablet 09/06/15 Prednisone 10 mg PO TID #15 tablet 05/08/16 Allergies/Adverse Reactions: amoxicillin [Amoxicillin] Allergy (Verified 05/06/16 19:02) Penicillins Allergy (Verified 05/06/16 19:02) Bees/Wasp Allergy (Uncoded 05/06/16 19:02) Physical Exam Vital Signs: Temp Pulse Resp BP Pulse Ox 98.8 F 17 144/85 H 97 05/09/16 20:06 05/09/16 23:00 05/09/16 22:01 05/09/16 23:00 Results Laboratory Results: 05/10/16 00:47 VBG pH 7.40 VBG pCO2 44.2 VBG HCO3 26.7 VBG Base Excess 1.5 05/10/16 05/10/16 00:38 00:38 Creatine Kinase 188 H CK-MB (CK-2) 0.95 Troponin I 0.078 Impressions: Chest X-Ray 05/09/16 20:07 IMPRESSION: NO ACUTE RADIOGRAPHIC FINDING IN THE CHEST. Assessment & Plan - Diagnosis (1) Acute and chronic respiratory failure Qualifiers: Respiratory failure complication: hypoxia Qualified Code(s): J96.21 - Acute and chronic respiratory failure with hypoxia Is this a current diagnosis for this admission?: YesPlan: Patient will be admitted under pneumonia protocol. Incentive spirometry twice a day. Scheduled DuoNeb's. PRN albuterol nebs Solu-Medrol IV Pepcid for gastritis prophylaxis. Antibiotics will consist of Rocephin and intravenous Zithromax. I strongly encouraged patient to notify staff should patient feel that respiratory status is worsening. Patient is a full code. I have strongly encouraged patient not to get out of bed without notifying staff , , to avoid a fall with injury. Knee high SCDs for DVT prophylaxis, along with subcutaneous heparin. Impression and plans were discussed with patient, who concurs. Time spent in evaluation and management of patient: 72 critical care minutes. (2) Asthma exacerbation Is this a current diagnosis for this admission?: Yes (3) Elevated troponin Is this a current diagnosis for this admission?: YesPlan: Chest pain-free at present no outward evidence of acute coronary syndrome. We' ll trend enzymes. (4) Pneumonia Qualifiers: Pneumonia type: due to unspecified organism Laterality: unspecified laterality Lung location: unspecified part of lung Qualified Code(s) : J18.9 - Pneumonia, unspecified organism Is this a current diagnosis for this admission?: Yes (5) Chest pain Qualifiers: Chest pain type: unspecified Qualified Code(s): R07.9 - Chest pain, unspecified Is this a current diagnosis for this admission?: Yes (6) Diabetes mellitus type 2 in obese Is this a current diagnosis for this admission?: YesPlan: Nothing by mouth other than ice chips. Accu-Cheks with appropriate sliding scale coverage.Resume home medications as appropriate once these have been reviewed. (7) Diastolic CHF Qualifiers: Congestive heart failure chronicity: chronic Qualified Code(s): I50.32 - Chronic diastolic (congestive) heart failure Is this a current diagnosis for this admission?: YesPlan: No outward clinical evidence of CHF exacerbation.Resume home medications as appropriate once these have been reviewed. (8) Hyperlipidemia Qualifiers: Hyperlipidemia type: unspecified Qualified Code(s): E78.5 - Hyperlipidemia, unspecified Is this a current diagnosis for this admission?: YesPlan: Resume home medications as appropriate once these have been reviewed. (9) TAMEKA (obstructive sleep apnea) Is this a current diagnosis for this admission?: YesPlan: Currently on BiPAP; will continue same for now. Follow-up blood gas. - Inpatient Certification Based on my medical assessment, after consideration of the patient's comorbidities, presenting symptoms, or acuity I expect that the services needed warrant INPATIENT care.: Yes I certify that my determination is in accordance with my understanding of Medicare's requirements for reasonable and necessary INPATIENT services [42 CFR 412.3e].: Yes Medical Necessity: Significant Comorbidiites Make Outpatient Treatment Too Risky , Need Close Monitoring Due to Risk of Patient Decompensation, Need For IV Fluids, Need For Continuous Telemetry Monitoring, Need for Nebulizer Therapy and Monitoring of Response, Need for IV Antibiotics, Risk of Diagnosis Which Will Require Inpatient Eval/Care/Monitoring Post Hospital Care: D/C or Transfer Summary
[2016-05-10] MEDS ORDERED: AZITHROMYCIN 500 MG in DEXTROSE 5%-WATER 250 ML IV SCH ×2 (02:00→22:00)
[2016-05-10] MEDS ORDERED: AZITHROMYCIN INJ 500 MG VIAL IV ONE (02:11)
[2016-05-10] MEDS ORDERED: AZITHROMYCIN INJ 500 MG VIAL IV PRN (02:11)
[2016-05-10] MEDS ORDERED: METHYLPREDNISOLONE INJ 125 MG/2 ML SDV IV ONE (02:15)
[2016-05-10] MEDS ORDERED: AZTREONAM 2 GM in DEXTROSE 5%-WATER 100 ML IV ONE (02:30)
[2016-05-10] MEDS ORDERED: AZITHROMYCIN 500 MG in DEXTROSE 5%-WATER 250 ML IV ONE (03:00)
[2016-05-10] MEDS: HEPARIN SOD (PORCINE) 5,000 UNIT/ML 1 ML SYRINGE SUBCUT SCH ×3 (05:19→23:54)
[2016-05-10 05:24] LABS: ABSOLUTE LYMPHOCYTES (AUTO) 0.9 10^3/uL (0.5-4.7); ABSOLUTE MONOCYTES (AUTO) 0.2 10^3/uL (0.1-1.4); ABSOLUTE NEUT (AUTO) 5.3 10^3/uL (1.7-8.2); BASOPHILS % (AUTO) 0.2 % (0-2); HEMATOCRIT 40.9 % (36.0-47.0); HEMOGLOBIN 13.5 g/dL (12.0-15.5); HGB HCT DIFFERENCE -0.4; LYMPHOCYTES % (AUTO) 13.7 % (13-45); MEAN CORPUSCULAR HEMOGLOBIN 25.3 pg (27.0-33.4); MEAN CORPUSCULAR HGB CONC 33.1 g/dL (32.0-36.0); MEAN CORPUSCULAR VOLUME 76 fl (80-97); MONOCYTES % (AUTO) 2.7 % (3-13); RED BLOOD COUNT 5.35 10^6/uL (3.72-5.28); RED CELL DISTRIBUTION WIDTH 15.8 % (11.5-14.0); SEGMENTED NEUTROPHILS % (AUTO) 83.4 % (42-78); WHITE BLOOD COUNT 6.3 10^3/uL (4.0-10.5)
[2016-05-10 05:36] LABS: ANION GAP 12 (5-19); BLOOD UREA NITROGEN 14 mg/dL (7-20); CALCIUM 8.9 mg/dL (8.4-10.2); CARBON DIOXIDE 26 mmol/L (22-30); CHLORIDE 98 mmol/L (98-107); CREATINE KINASE 165 U/L (30-135); CREATININE RESULT 0.66 mg/dL (0.52-1.25); GLUCOSE 368 mg/dL (75-110); POTASSIUM 4.5 mmol/L (3.6-5.0); SODIUM 136.4 mmol/L (137-145)
[2016-05-10 05:48] LABS: CREATINE KINASE MB 0.9 ng/mL (<4.55); TROPONIN I 0.046 ng/mL
[2016-05-10 06:03] LABS: VENOUS BLOOD BASE EXCESS 0.2 mmol/L; VENOUS BLOOD HCO3 25.5 mmol/L (20-32); VENOUS BLOOD PCO2 43.7 mmHg (35-63); VENOUS BLOOD PH 7.38 (7.30-7.42)
--- NOTE | 2016-05-10 08:07 | EKG REPORT ---
SEVERITY:- ABNORMAL ECG - SINUS RHYTHM PROLONGED QT INTERVAL OLD ANTROSEPTAL TN. VS POOR PRECODIAL LEAD PLACEMENT. : Confirmed by: Eder John MD 10-May-2016 08:06:27
--- NOTE | 2016-05-10 08:37 | PDOC PROGRESS REPORT ---
Subjective Progress Note for:: 05/10/16 Subjective:: The patient is currently lying on stretcher. Overall the patient states that she is improved. The patient is complaining of abdominal pain but states that this is related to "hunger pains". The patient denies any nausea, vomiting, diarrhea, dizziness, chest pain, heart palpitations, fevers, or chills. The patient has remained afebrile. Blood pressures have been in a good range. The patient voices no other concerns at this time. Review of systems: The rest of the review of systems is negative. Brief history: The patient was admitted overnight for asthma exacerbation. It appears the patient has been admitted previous times for same diagnosis. The patient was seen in the emergency department recently and received prescriptions however these have yet to be field. The patient was placed on a BiPAP started on steroids and overall symptoms have improved significantly overnight. Patient's main concern is too patient will be transitioned to nasal cannula and provided a meal and monitor. Physical Exam Vital Signs: Temp Pulse Resp BP Pulse Ox 98.8 F 20 132/80 H 96 05/09/16 20:06 05/10/16 07:31 05/10/16 07:31 05/10/16 07:31 General appearance: PRESENT: no acute distress, cooperative, well-developed, well-nourished Head exam: PRESENT: atraumatic, normocephalic Eye exam: PRESENT: conjunctiva pink, EOMI, PERRLA. ABSENT: scleral icterus Ear exam: PRESENT: normal external ear exam Mouth exam: PRESENT: moist, tongue midline Neck exam: ABSENT: carotid bruit, JVD, lymphadenopathy, thyromegaly Respiratory exam: PRESENT: decreased breath sounds, symmetrical, tachypnea, unlabored. ABSENT: rales, rhonchi, wheezes Cardiovascular exam: PRESENT: RRR. ABSENT: diastolic murmur, rubs, systolic murmur Pulses: PRESENT: normal dorsalis pedis pul Vascular exam: PRESENT: normal capillary refill GI/Abdominal exam: PRESENT: normal bowel sounds, soft. ABSENT: distended, guarding, mass, organolmegaly, rebound, tenderness Rectal exam: PRESENT: deferred Extremities exam: PRESENT: full ROM. ABSENT: calf tenderness, clubbing, pedal edema Neurological exam: PRESENT: alert, awake, oriented to person, oriented to place , oriented to time, oriented to situation, CN II-XII grossly intact. ABSENT: motor sensory deficit Psychiatric exam: PRESENT: appropriate affect, normal mood. ABSENT: homicidal ideation, suicidal ideation Skin exam: PRESENT: dry, intact, warm. ABSENT: cyanosis, rash Results Laboratory Results: 05/10/16 05:00 05/10/16 05:00 05/10/16 05/10/16 05/10/16 05:00 05:00 05:00 WBC 6.3 RBC 5.35 H Hgb 13.5 Hct 40.9 MCV 76 L MCH 25.3 L MCHC 33.1 RDW 15.8 H Plt Count 223 Seg Neutrophils % 83.4 H Lymphocytes % 13.7 Monocytes % 2.7 L Eosinophils % 0.0 Basophils % 0.2 Absolute Neutrophils 5.3 Absolute Lymphocytes 0.9 Absolute Monocytes 0.2 Absolute Eosinophils 0.0 Absolute Basophils 0.0 VBG pH Cancelled VBG pCO2 Cancelled VBG HCO3 Cancelled VBG Base Excess Cancelled Sodium 136.4 L Potassium 4.5 Chloride 98 Carbon Dioxide 26 Anion Gap 12 BUN 14 Creatinine 0.66 Est GFR ( Amer) > 60 Est GFR (Non-Af Amer) > 60 Glucose 368 H Calcium 8.9 05/10/16 05:38 WBC RBC Hgb Hct MCV MCH MCHC RDW Plt Count Seg Neutrophils % Lymphocytes % Monocytes % Eosinophils % Basophils % Absolute Neutrophils Absolute Lymphocytes Absolute Monocytes Absolute Eosinophils Absolute Basophils VBG pH 7.38 VBG pCO2 43.7 VBG HCO3 25.5 VBG Base Excess 0.2 Sodium Potassium Chloride Carbon Dioxide Anion Gap BUN Creatinine Est GFR ( Amer) Est GFR (Non-Af Amer) Glucose Calcium 05/10/16 05/10/16 05:00 05:00 Creatine Kinase 165 H CK-MB (CK-2) 0.90 Troponin I 0.046 Impressions: Chest X-Ray 05/09/16 20:07 IMPRESSION: NO ACUTE RADIOGRAPHIC FINDING IN THE CHEST. Assessment & Plan - Diagnosis (1) Asthma exacerbation Is this a current diagnosis for this admission?: YesPlan: Will continue steroids, Singulair, Advair. Will continue antibiotics for another 24 hours. Patient's chest x-ray was negative for infiltrate. No fevers , no leukocytosis, no evidence of sepsis. (2) Acute and chronic respiratory failure Qualifiers: Respiratory failure complication: hypoxia Qualified Code(s): J96.21 - Acute and chronic respiratory failure with hypoxia Is this a current diagnosis for this admission?: YesPlan: Mainly tachypnea. Overall much improved. Will transition to nasal cannula and monitor closely. VBG looks good. (3) GERD (gastroesophageal reflux disease) Qualifiers: Esophagitis presence: without esophagitis Qualified Code(s): K21.9 - Gastro-esophageal reflux disease without esophagitis Is this a current diagnosis for this admission?: YesPlan: Will continue home meds (4) Diabetes mellitus type 2 in obese Is this a current diagnosis for this admission?: YesPlan: Will continue sliding scale coverage as well as the patient's basals. (5) Diastolic CHF Qualifiers: Congestive heart failure chronicity: chronic Qualified Code(s): I50.32 - Chronic diastolic (congestive) heart failure Is this a current diagnosis for this admission?: YesPlan: Chronic diastolic dysfunction. At this time the patient appears optivolemic. (6) Hyperlipidemia Qualifiers: Hyperlipidemia type: unspecified Qualified Code(s): E78.5 - Hyperlipidemia, unspecified Is this a current diagnosis for this admission?: YesPlan: Will continue statin (7) TAMEKA (obstructive sleep apnea) Is this a current diagnosis for this admission?: YesPlan: Will continue C Pap at night (8) Morbid obesity with BMI of 40.0-44.9, adult Is this a current diagnosis for this admission?: Yes (9) DVT prophylaxis Is this a current diagnosis for this admission?: YesPlan: Will continue subcutaneous heparin - Time Time Spent with patient: 35 or more minutes Medications reviewed and adjusted accordingly: Yes Anticipated discharge: Home Within: within 24 hours, within 48 hours
[2016-05-10] MEDS: IPRATROPIUM/ALBUTEROL 0.5-2.5 MG/3 ML AMPUL NEB SCH ×3 (08:46→20:33)
[2016-05-10] MEDS: ASPIRIN 81 MG TABLET, ENT COATED PO SCH (09:15)
[2016-05-10] MEDS: INSULIN LISPRO 100 UNIT/ML 3 ML VIAL SUBCUT PRN ×3 (09:16→16:11)
[2016-05-10] MEDS: FAMOTIDINE 20 MG TABLET PO SCH ×2 (09:16→23:47)
[2016-05-10] MEDS: FLUTICASONE NASAL SPRAY 50 MCG/SPRY 120 SPRAY/16 GM NASL SCH ×2 (09:50→23:49)
[2016-05-10] MEDS: FLUTICASONE/SALMETEROL DISKUS 250-50 MCG/DOSE IH SCH ×2 (09:50→23:49)
[2016-05-10] MEDS ORDERED: METHYLPREDNISOLONE INJ 125 MG/2 ML SDV ONE (09:52)
[2016-05-10] MEDS ORDERED: FAMOTIDINE INJ/PF 20 MG/2 ML SDV IV SCH (10:00)
[2016-05-10] MEDS ORDERED: METOPROLOL TARTRATE 25 MG TABLET PO SCH (10:00)
[2016-05-10] MEDS ORDERED: METHYLPREDNISOLONE INJ 125 MG/2 ML SDV IV SCH (10:00)
[2016-05-10] MEDS ORDERED: AZTREONAM 2 GM in DEXTROSE 5%-WATER 100 ML IV SCH (10:00)
[2016-05-10] MEDS ORDERED: LISINOPRIL 10 MG TABLET PO SCH (10:00)
[2016-05-10] MEDS: AZTREONAM 2 GM in DEXTROSE 5%-WATER 100 ML IV SCH ×2 (14:42→23:53)
[2016-05-10] MEDS ORDERED: METOPROLOL TARTRATE 100 MG TABLET PO ONE (14:45)
[2016-05-10] MEDS ORDERED: METFORMIN HCL 500 MG TABLET PO ONE (15:00)
[2016-05-10] MEDS ORDERED: (PENDING PHARMACY ID) (Lisinopril [Prinivil] 20 MG) PO SCH (22:00)
[2016-05-10] MEDS: AMLODIPINE BESYLATE 2.5 MG TABLET PO SCH (23:48)
[2016-05-10] MEDS: ATORVASTATIN CALCIUM 10 MG TABLET PO SCH (23:49)
[2016-05-10] MEDS: GLIPIZIDE 5 MG TABLET PO SCH (23:50)
[2016-05-10] MEDS: LISINOPRIL 10 MG TABLET PO SCH (23:50)
[2016-05-10] MEDS: METOPROLOL TARTRATE 100 MG TABLET PO SCH (23:52)
[2016-05-10] MEDS: MONTELUKAST SODIUM 10 MG TABLET PO SCH (23:53)
[2016-05-10] MEDS: METFORMIN HCL 500 MG TABLET PO SCH (23:56)
[2016-05-10] MEDS: ACETAMINOPHEN 325 MG TABLET PO PRN (23:59)
[2016-05-11] MEDS ORDERED: METHYLPREDNISOLONE INJ 125 MG/2 ML SDV ONE (00:01)
[2016-05-11] MEDS ORDERED: AZITHROMYCIN 500 MG in DEXTROSE 5%-WATER 250 ML IV ONE (01:00)
[2016-05-11] MEDS ORDERED: INSULIN LISPRO 100 UNIT/ML 3 ML VIAL SUBCUT ONE (01:30)
[2016-05-11] MEDS: HEPARIN SOD (PORCINE) 5,000 UNIT/ML 1 ML SYRINGE SUBCUT SCH ×3 (05:30→22:06)
[2016-05-11] MEDS: AZTREONAM 2 GM in DEXTROSE 5%-WATER 100 ML IV SCH ×3 (06:28→22:09)
[2016-05-11] MEDS: INSULIN LISPRO 100 UNIT/ML 3 ML VIAL SUBCUT PRN ×4 (07:37→22:33)
[2016-05-11] MEDS: METHYLPREDNISOLONE INJ 125 MG/2 ML SDV IV SCH ×3 (07:39→23:52)
[2016-05-11] MEDS: IPRATROPIUM/ALBUTEROL 0.5-2.5 MG/3 ML AMPUL NEB SCH ×3 (08:01→20:41)
[2016-05-11] MEDS: FLUTICASONE NASAL SPRAY 50 MCG/SPRY 120 SPRAY/16 GM NASL SCH ×2 (09:38→22:07)
[2016-05-11] MEDS: FLUTICASONE/SALMETEROL DISKUS 250-50 MCG/DOSE IH SCH ×2 (09:38→22:08)
[2016-05-11] MEDS: FAMOTIDINE 20 MG TABLET PO SCH ×2 (09:42→22:07)
[2016-05-11] MEDS: ASPIRIN 81 MG TABLET, ENT COATED PO SCH (09:42)
[2016-05-11] MEDS: METOPROLOL TARTRATE 100 MG TABLET PO SCH ×2 (09:42→22:09)
[2016-05-11] MEDS: METFORMIN HCL 500 MG TABLET PO SCH ×2 (09:42→22:08)
[2016-05-11] MEDS: GLIPIZIDE 5 MG TABLET PO SCH ×2 (09:42→22:08)
[2016-05-11] MEDS: LISINOPRIL 10 MG TABLET PO SCH ×2 (09:43→22:08)
--- NOTE | 2016-05-11 16:28 | PDOC PROGRESS REPORT ---
Subjective Progress Note for:: 05/11/16 Subjective:: Patient seen on morning rounds. She is resting comfortably in bed. She states her breathing is somewhat improved. She continues to have wheezing and cough. She states her cough is nonproductive at the present time. She denies any chest pain, headache or dizziness. She denies any nausea or abdominal pain. She denies any significant arthralgias is or myalgias. Rest her review of systems is negative. Physical Exam Vital Signs: Temp Pulse Resp BP Pulse Ox 97.8 F 76 22 H 143/74 H 96 05/11/16 15:53 05/11/16 15:53 05/11/16 15:53 05/11/16 15:53 05/11/16 15:53 Intake & Output 05/10/16 05/11/16 05/12/16 06:59 06:59 06:59 Intake Total 395 781 Output Total 1000 Balance 395 -219 Weight 143.9 kg General appearance: PRESENT: no acute distress, morbidly obese, well-developed, well-nourished Head exam: PRESENT: atraumatic, normocephalic Eye exam: PRESENT: conjunctiva pink, EOMI, PERRLA. ABSENT: scleral icterus Ear exam: PRESENT: normal external ear exam Mouth exam: PRESENT: moist, tongue midline Neck exam: ABSENT: carotid bruit, JVD, lymphadenopathy, thyromegaly Respiratory exam: PRESENT: decreased breath sounds, symmetrical, wheezes Cardiovascular exam: PRESENT: RRR. ABSENT: diastolic murmur, rubs, systolic murmur Pulses: PRESENT: normal dorsalis pedis pul GI/Abdominal exam: PRESENT: normal bowel sounds, soft. ABSENT: distended, guarding, mass, organolmegaly, rebound, tenderness Rectal exam: PRESENT: deferred Extremities exam: PRESENT: full ROM. ABSENT: calf tenderness, clubbing, pedal edema Neurological exam: PRESENT: alert, awake, oriented to person, oriented to place , oriented to time, oriented to situation, CN II-XII grossly intact. ABSENT: motor sensory deficit Psychiatric exam: PRESENT: appropriate affect, normal mood. ABSENT: homicidal ideation, suicidal ideation Skin exam: PRESENT: dry, intact, warm. ABSENT: cyanosis, rash Results Laboratory Results: 05/10/16 05:00 05/10/16 05:00 05/10/16 05/10/16 05:00 05:00 Creatine Kinase 165 H CK-MB (CK-2) 0.90 Troponin I 0.046 Impressions: Chest X-Ray 05/09/16 20:07 IMPRESSION: NO ACUTE RADIOGRAPHIC FINDING IN THE CHEST. Assessment & Plan - Diagnosis (1) Acute and chronic respiratory failure Qualifiers: Respiratory failure complication: hypoxia Qualified Code(s): J96.21 - Acute and chronic respiratory failure with hypoxia Is this a current diagnosis for this admission?: YesPlan: Improved now saturating well on oxygen 2 L/m nasal cannula. We'll continue nebulized treatments and IV steroids. (2) Asthma exacerbation Is this a current diagnosis for this admission?: YesPlan: Continue nebulizer treatments and IV steroids (3) Diabetes mellitus type 2 in obese Is this a current diagnosis for this admission?: YesPlan: Continue home medication and sliding scale coverage (4) Morbid obesity with BMI of 40.0-44.9, adult Is this a current diagnosis for this admission?: YesPlan: Counseled on need for weight loss (5) Hyperlipidemia Qualifiers: Hyperlipidemia type: unspecified Qualified Code(s): E78.5 - Hyperlipidemia, unspecified Is this a current diagnosis for this admission?: YesPlan: Continue statin (6) GERD (gastroesophageal reflux disease) Qualifiers: Esophagitis presence: without esophagitis Qualified Code(s): K21.9 - Gastro-esophageal reflux disease without esophagitis Is this a current diagnosis for this admission?: YesPlan: Continue PPI therapy (7) TAMEKA (obstructive sleep apnea) Is this a current diagnosis for this admission?: YesPlan: Continue CPAP at night (8) DVT prophylaxis Is this a current diagnosis for this admission?: YesPlan: Continue Lovenox - Time Time Spent with patient: 25-34 minutes Critical Time spent with patient: 15-24 minutes Medications reviewed and adjusted accordingly: Yes Anticipated discharge: Home
[2016-05-11] MEDS: GUAIFENESIN SYRP 200 MG/10 ML UDC PO PRN ×2 (16:43→22:33)
[2016-05-11] MEDS ORDERED: DEXTROSE 50%-WATER 25 GM/50 ML DISP.SYRIN IV PRN ×2 (21:58)
[2016-05-11] MEDS ORDERED: GLUCAGON,HUMAN RECOMB 1 MG INJ IM PRN (21:58)
[2016-05-11] MEDS ORDERED: DEXTROSE 40% GEL 15 GM TUBE PO PRN ×2 (21:58)
[2016-05-11] MEDS: ATORVASTATIN CALCIUM 10 MG TABLET PO SCH (22:07)
[2016-05-11] MEDS: AMLODIPINE BESYLATE 2.5 MG TABLET PO SCH (22:07)
[2016-05-11] MEDS: MONTELUKAST SODIUM 10 MG TABLET PO SCH (22:09)
[2016-05-11] MEDS: AZITHROMYCIN 500 MG in DEXTROSE 5%-WATER 250 ML IV SCH (22:10)
[2016-05-11] MEDS ORDERED: INSULIN REG, HUMAN 100 UNIT/ML 3 ML VIAL (PYX) ONE (22:27)
[2016-05-12] MEDS: HEPARIN SOD (PORCINE) 5,000 UNIT/ML 1 ML SYRINGE SUBCUT SCH ×3 (06:09→22:01)
[2016-05-12] MEDS: AZTREONAM 2 GM in DEXTROSE 5%-WATER 100 ML IV SCH ×3 (06:10→22:26)
[2016-05-12] MEDS: IPRATROPIUM/ALBUTEROL 0.5-2.5 MG/3 ML AMPUL NEB SCH ×3 (07:42→20:27)
[2016-05-12] MEDS ORDERED: METHYLPREDNISOLONE INJ 125 MG/2 ML SDV IV SCH (08:02)
[2016-05-12] MEDS: FLUTICASONE NASAL SPRAY 50 MCG/SPRY 120 SPRAY/16 GM NASL SCH ×2 (09:06→22:10)
[2016-05-12] MEDS: FLUTICASONE/SALMETEROL DISKUS 250-50 MCG/DOSE IH SCH ×2 (09:07→22:10)
[2016-05-12] MEDS: METFORMIN HCL 500 MG TABLET PO SCH ×2 (09:08→22:00)
[2016-05-12] MEDS: GLIPIZIDE 5 MG TABLET PO SCH ×2 (09:09→22:00)
[2016-05-12] MEDS: LISINOPRIL 10 MG TABLET PO SCH ×2 (09:09→21:59)
[2016-05-12] MEDS: METOPROLOL TARTRATE 100 MG TABLET PO SCH ×2 (09:10→22:09)
[2016-05-12] MEDS: ASPIRIN 81 MG TABLET, ENT COATED PO SCH (09:10)
[2016-05-12] MEDS: FAMOTIDINE 20 MG TABLET PO SCH ×2 (09:10→22:00)
[2016-05-12] MEDS: METHYLPREDNISOLONE INJ 125 MG/2 ML SDV IV SCH ×2 (09:11→17:36)
[2016-05-12] MEDS: INSULIN LISPRO 100 UNIT/ML 3 ML VIAL SUBCUT PRN ×4 (09:12→23:30)
--- NOTE | 2016-05-12 16:40 | PDOC PROGRESS REPORT ---
Subjective Progress Note for:: 05/12/16 Subjective:: Patient seen on morning rounds. She is resting comfortably in bedside chair She states her breathing is somewhat improved. She continues to have wheezing and cough. She states her cough is nonproductive at the present time. She denies any chest pain, headache or dizziness. She denies any nausea or abdominal pain. She denies any significant arthralgias is or myalgias. Rest of her review of systems is negative. Physical Exam Vital Signs: Temp Pulse Resp BP Pulse Ox 98.2 F 68 16 140/82 H 97 05/12/16 07:04 05/12/16 14:18 05/12/16 14:18 05/12/16 07:04 05/12/16 14:18 Intake & Output 05/11/16 05/12/16 05/13/16 06:59 06:59 06:59 Intake Total 395 4125 Output Total 3150 Balance 395 975 Weight 143.9 kg 146.1 kg General appearance: PRESENT: no acute distress, morbidly obese, well-developed, well-nourished Head exam: PRESENT: atraumatic, normocephalic Eye exam: PRESENT: conjunctiva pink, EOMI, PERRLA. ABSENT: scleral icterus Ear exam: PRESENT: normal external ear exam Mouth exam: PRESENT: moist, tongue midline Neck exam: ABSENT: carotid bruit, JVD, lymphadenopathy, thyromegaly Respiratory exam: PRESENT: clear to auscultation russell. ABSENT: rales, rhonchi, wheezes Cardiovascular exam: PRESENT: RRR. ABSENT: diastolic murmur, rubs, systolic murmur Pulses: PRESENT: normal dorsalis pedis pul Vascular exam: PRESENT: normal capillary refill GI/Abdominal exam: PRESENT: normal bowel sounds, soft. ABSENT: distended, guarding, mass, organolmegaly, rebound, tenderness Rectal exam: PRESENT: deferred Extremities exam: PRESENT: full ROM. ABSENT: calf tenderness, clubbing, pedal edema Neurological exam: PRESENT: alert, awake, oriented to person, oriented to place , oriented to time, oriented to situation, CN II-XII grossly intact. ABSENT: motor sensory deficit Psychiatric exam: PRESENT: appropriate affect, normal mood. ABSENT: homicidal ideation, suicidal ideation Skin exam: PRESENT: dry, intact, warm. ABSENT: cyanosis, rash Results Laboratory Results: 05/10/16 05:00 05/10/16 05:00 05/10/16 05/10/16 05:00 05:00 Creatine Kinase 165 H CK-MB (CK-2) 0.90 Troponin I 0.046 Impressions: Chest X-Ray 05/09/16 20:07 IMPRESSION: NO ACUTE RADIOGRAPHIC FINDING IN THE CHEST. Assessment & Plan - Diagnosis (1) Acute and chronic respiratory failure Qualifiers: Respiratory failure complication: hypoxia Qualified Code(s): J96.21 - Acute and chronic respiratory failure with hypoxia Is this a current diagnosis for this admission?: YesPlan: Improved now saturating well on oxygen 2 L/m nasal cannula. We'll continue nebulized treatments and IV steroids. (2) Asthma exacerbation Is this a current diagnosis for this admission?: YesPlan: Continue nebulizer treatments and IV steroids (3) Diabetes mellitus type 2 in obese Is this a current diagnosis for this admission?: YesPlan: Continue home medication and sliding scale coverage (4) Morbid obesity with BMI of 40.0-44.9, adult Is this a current diagnosis for this admission?: YesPlan: Counseled on need for weight loss (5) Hyperlipidemia Qualifiers: Hyperlipidemia type: unspecified Qualified Code(s): E78.5 - Hyperlipidemia, unspecified Is this a current diagnosis for this admission?: YesPlan: Continue statin (6) GERD (gastroesophageal reflux disease) Qualifiers: Esophagitis presence: without esophagitis Qualified Code(s): K21.9 - Gastro-esophageal reflux disease without esophagitis Is this a current diagnosis for this admission?: YesPlan: Continue PPI therapy (7) TAMEKA (obstructive sleep apnea) Is this a current diagnosis for this admission?: YesPlan: Continue CPAP at night (8) DVT prophylaxis Is this a current diagnosis for this admission?: YesPlan: Continue Lovenox - Time Time Spent with patient: 25-34 minutes Critical Time spent with patient: 15-24 minutes Medications reviewed and adjusted accordingly: Yes Anticipated discharge: Home
[2016-05-12] MEDS: AZITHROMYCIN 500 MG in DEXTROSE 5%-WATER 250 ML IV SCH (21:58)
[2016-05-12] MEDS ORDERED: INSULIN REG, HUMAN 100 UNIT/ML 3 ML VIAL (PYX) IV ONE (21:59)
[2016-05-12] MEDS: ATORVASTATIN CALCIUM 10 MG TABLET PO SCH (22:00)
[2016-05-12] MEDS: AMLODIPINE BESYLATE 2.5 MG TABLET PO SCH (22:00)
[2016-05-12] MEDS: MONTELUKAST SODIUM 10 MG TABLET PO SCH (22:00)
[2016-05-13] MEDS: METHYLPREDNISOLONE INJ 125 MG/2 ML SDV IV SCH ×2 (01:54→09:39)
[2016-05-13] MEDS: AZTREONAM 2 GM in DEXTROSE 5%-WATER 100 ML IV SCH (06:03)
[2016-05-13] MEDS: HEPARIN SOD (PORCINE) 5,000 UNIT/ML 1 ML SYRINGE SUBCUT SCH ×3 (06:03→21:59)
[2016-05-13] MEDS: INSULIN LISPRO 100 UNIT/ML 3 ML VIAL SUBCUT PRN ×4 (08:31→22:52)
[2016-05-13] MEDS: IPRATROPIUM/ALBUTEROL 0.5-2.5 MG/3 ML AMPUL NEB SCH ×3 (08:39→20:38)
[2016-05-13] MEDS: FLUTICASONE/SALMETEROL DISKUS 250-50 MCG/DOSE IH SCH ×2 (09:38→21:59)
[2016-05-13] MEDS: FLUTICASONE NASAL SPRAY 50 MCG/SPRY 120 SPRAY/16 GM NASL SCH ×2 (09:38→21:59)
[2016-05-13] MEDS: ACETAMINOPHEN 325 MG TABLET PO PRN (09:39)
[2016-05-13] MEDS: LISINOPRIL 10 MG TABLET PO SCH ×2 (09:39→22:00)
[2016-05-13] MEDS: METOPROLOL TARTRATE 100 MG TABLET PO SCH ×2 (09:39→22:00)
[2016-05-13] MEDS: GLIPIZIDE 5 MG TABLET PO SCH ×2 (09:40→22:00)
[2016-05-13] MEDS: FAMOTIDINE 20 MG TABLET PO SCH ×2 (09:40→22:00)
[2016-05-13] MEDS: ASPIRIN 81 MG TABLET, ENT COATED PO SCH (09:40)
[2016-05-13] MEDS: METFORMIN HCL 500 MG TABLET PO SCH ×2 (09:40→22:04)
[2016-05-13] MEDS ORDERED: IBUPROFEN 800 MG TABLET PO PRN (09:41)
--- NOTE | 2016-05-13 09:58 | PDOC PROGRESS REPORT ---
Subjective Progress Note for:: 05/13/16 Subjective:: Patient seen on morning rounds. She is resting comfortably in bedside chair She feels her breathing is improving. Far less wheezing. She states her cough is nonproductive at the present time. She denies any chest pain, headache or dizziness. She denies any nausea or abdominal pain. She states she has a small painful lump in her right groin area. She thinks it's an abscess She denies any significant arthralgias is or myalgias. Rest of her review of systems is negative. Physical Exam Vital Signs: Temp Pulse Resp BP Pulse Ox 97.4 F 80 18 175/97 H 95 05/13/16 08:05 05/13/16 08:39 05/13/16 08:39 05/13/16 08:05 05/13/16 08:39 Intake & Output 05/12/16 05/13/16 05/14/16 06:59 06:59 06:59 Intake Total 4125 3951 Output Total 3150 4950 Balance 975 -999 Weight 146.1 kg 146.5 kg General appearance: PRESENT: no acute distress, morbidly obese, well-developed, well-nourished Head exam: PRESENT: atraumatic, normocephalic Eye exam: PRESENT: conjunctiva pink, EOMI, PERRLA. ABSENT: scleral icterus Ear exam: PRESENT: normal external ear exam Mouth exam: PRESENT: moist, tongue midline Neck exam: ABSENT: carotid bruit, JVD, lymphadenopathy, thyromegaly Respiratory exam: PRESENT: decreased breath sounds, symmetrical, unlabored, wheezes. ABSENT: rales, rhonchi Cardiovascular exam: PRESENT: RRR. ABSENT: diastolic murmur, rubs, systolic murmur Pulses: PRESENT: normal dorsalis pedis pul Vascular exam: PRESENT: normal capillary refill GI/Abdominal exam: PRESENT: normal bowel sounds, soft. ABSENT: distended, guarding, mass, organolmegaly, rebound, tenderness Rectal exam: PRESENT: deferred Extremities exam: PRESENT: full ROM. ABSENT: calf tenderness, clubbing, pedal edema Musculoskeletal exam: PRESENT: ambulatory, full ROM Neurological exam: PRESENT: alert, awake, oriented to person, oriented to place , oriented to time, oriented to situation, CN II-XII grossly intact. ABSENT: motor sensory deficit Psychiatric exam: PRESENT: appropriate affect, normal mood. ABSENT: homicidal ideation, suicidal ideation Skin exam: PRESENT: dry, warm, other - 2 cm soft furuncle right groin area Results Laboratory Results: 05/10/16 05:00 05/10/16 05:00 05/10/16 05/10/16 05:00 05:00 Creatine Kinase 165 H CK-MB (CK-2) 0.90 Troponin I 0.046 Impressions: Chest X-Ray 05/09/16 20:07 IMPRESSION: NO ACUTE RADIOGRAPHIC FINDING IN THE CHEST. Assessment & Plan - Diagnosis (1) Acute and chronic respiratory failure Qualifiers: Respiratory failure complication: hypoxia Qualified Code(s): J96.21 - Acute and chronic respiratory failure with hypoxia Is this a current diagnosis for this admission?: YesPlan: Improved now saturating well on oxygen 2 L/m nasal cannula. We'll continue nebulized treatments and taper steroids. Possible discharge in the next 24-48 hrs (2) Asthma exacerbation Is this a current diagnosis for this admission?: YesPlan: Continue nebulizer treatments and IV steroids (3) Diabetes mellitus type 2 in obese Is this a current diagnosis for this admission?: YesPlan: Continue home medication and sliding scale coverage (4) Morbid obesity with BMI of 40.0-44.9, adult Is this a current diagnosis for this admission?: YesPlan: Counseled on need for weight loss (5) Hyperlipidemia Qualifiers: Hyperlipidemia type: unspecified Qualified Code(s): E78.5 - Hyperlipidemia, unspecified Is this a current diagnosis for this admission?: YesPlan: Continue statin (6) GERD (gastroesophageal reflux disease) Qualifiers: Esophagitis presence: without esophagitis Qualified Code(s): K21.9 - Gastro-esophageal reflux disease without esophagitis Is this a current diagnosis for this admission?: YesPlan: Continue PPI therapy (7) TAMEKA (obstructive sleep apnea) Is this a current diagnosis for this admission?: YesPlan: Continue CPAP at night (8) DVT prophylaxis Is this a current diagnosis for this admission?: YesPlan: Continue Lovenox - Time Time Spent with patient: 25-34 minutes Smoking Cessation Education: 3 to 10 minutes Medications reviewed and adjusted accordingly: Yes Anticipated discharge: Home
[2016-05-13] MEDS: SULFAMETHOXAZOLE/TRIMETHOPRIM 800-160 MG TABLET PO SCH ×2 (12:30→22:00)
[2016-05-13] MEDS ORDERED: SULFAMETHOXAZOLE/TRIMETHOPRIM 800-160 MG TABLET PO ONE (12:45)
[2016-05-13] MEDS: MUPIROCIN CALCIUM 2% CREAM 15 GM TP SCH ×2 (13:11→17:08)
[2016-05-13] MEDS ORDERED: PREDNISONE 20 MG TABLET PO ONE (18:00)
[2016-05-13] MEDS: AMLODIPINE BESYLATE 2.5 MG TABLET PO SCH (22:00)
[2016-05-13] MEDS: MONTELUKAST SODIUM 10 MG TABLET PO SCH (22:00)
[2016-05-13] MEDS: ATORVASTATIN CALCIUM 10 MG TABLET PO SCH (22:00)
[2016-05-14] MEDS: GUAIFENESIN SYRP 200 MG/10 ML UDC PO PRN (05:09)
[2016-05-14] MEDS: HEPARIN SOD (PORCINE) 5,000 UNIT/ML 1 ML SYRINGE SUBCUT SCH (05:09)
[2016-05-14 06:33] LABS: ABSOLUTE LYMPHOCYTES (AUTO) 1.8 10^3/uL (0.5-4.7); ABSOLUTE NEUT (AUTO) 10.6 10^3/uL (1.7-8.2); BASOPHILS % (AUTO) 0.1 % (0-2); HEMATOCRIT 35.8 % (36.0-47.0); HGB HCT DIFFERENCE 0.2; LYMPHOCYTES % (AUTO) 13.3 % (13-45); MEAN CORPUSCULAR HEMOGLOBIN 25.1 pg (27.0-33.4); MEAN CORPUSCULAR HGB CONC 33.5 g/dL (32.0-36.0); MEAN CORPUSCULAR VOLUME 75 fl (80-97); MONOCYTES % (AUTO) 7.4 % (3-13); RED BLOOD COUNT 4.77 10^6/uL (3.72-5.28); RED CELL DISTRIBUTION WIDTH 15.5 % (11.5-14.0); SEGMENTED NEUTROPHILS % (AUTO) 79.2 % (42-78); WHITE BLOOD COUNT 13.4 10^3/uL (4.0-10.5)
[2016-05-14 06:56] LABS: ANION GAP 8 (5-19); BLOOD UREA NITROGEN 20 mg/dL (7-20); CALCIUM 9.2 mg/dL (8.4-10.2); CARBON DIOXIDE 27 mmol/L (22-30); CHLORIDE 101 mmol/L (98-107); CREATININE RESULT 0.68 mg/dL (0.52-1.25); GLUCOSE 279 mg/dL (75-110); POTASSIUM 4.5 mmol/L (3.6-5.0); SODIUM 135.6 mmol/L (137-145)
[2016-05-14] MEDS: IPRATROPIUM/ALBUTEROL 0.5-2.5 MG/3 ML AMPUL NEB SCH ×2 (08:07→13:57)
[2016-05-14] MEDS: INSULIN LISPRO 100 UNIT/ML 3 ML VIAL SUBCUT PRN ×2 (08:13→12:25)
[2016-05-14] MEDS: FAMOTIDINE 20 MG TABLET PO SCH (09:28)
[2016-05-14] MEDS: GLIPIZIDE 5 MG TABLET PO SCH (09:28)
[2016-05-14] MEDS: SULFAMETHOXAZOLE/TRIMETHOPRIM 800-160 MG TABLET PO SCH (09:29)
[2016-05-14] MEDS: METFORMIN HCL 500 MG TABLET PO SCH (09:29)
[2016-05-14] MEDS: LISINOPRIL 10 MG TABLET PO SCH (09:29)
[2016-05-14] MEDS: METOPROLOL TARTRATE 100 MG TABLET PO SCH (09:29)
[2016-05-14] MEDS: ASPIRIN 81 MG TABLET, ENT COATED PO SCH (09:29)
[2016-05-14] MEDS: MUPIROCIN CALCIUM 2% CREAM 15 GM TP SCH (09:31)
[2016-05-14] MEDS: FLUTICASONE NASAL SPRAY 50 MCG/SPRY 120 SPRAY/16 GM NASL SCH (09:31)
[2016-05-14] MEDS: FLUTICASONE/SALMETEROL DISKUS 250-50 MCG/DOSE IH SCH (09:31)
[2016-05-14] MEDS ORDERED: PANTOPRAZOLE SODIUM 40 MG VIAL IV SCH (10:00)
[2016-05-14] MEDS ORDERED: PREDNISONE 20 MG TABLET PO SCH ×2 (10:00)
[2016-05-14 12:49] VITALS: BP 172/95
--- NOTE | 2016-05-14 15:09 | PDOC DISCHARGE SUMMARY ---
General - Admit/Disc Date/PCP Admission Date/Primary Care Provider: 05/10/16 01:25 Discharge Date: 05/14/16 - Discharge Diagnosis (1) Acute and chronic respiratory failure Is this a current diagnosis for this admission?: YesSummary: Improved. Patient now saturating well on room air. Her wheezing has resolved (2) Asthma exacerbation Is this a current diagnosis for this admission?: YesSummary: Resolved with IV antibiotics, nebulizers and steroids (3) Diabetes mellitus type 2 in obese Is this a current diagnosis for this admission?: YesSummary: Continue current medications (4) Morbid obesity with BMI of 40.0-44.9, adult Is this a current diagnosis for this admission?: YesSummary: Counseled on need for weight loss through dietary modifications and increasing exercise (5) Hyperlipidemia Is this a current diagnosis for this admission?: YesSummary: Continue statin therapy (6) GERD (gastroesophageal reflux disease) Is this a current diagnosis for this admission?: YesSummary: Continue PPI therapy (7) TAMEKA (obstructive sleep apnea) Is this a current diagnosis for this admission?: YesSummary: CPAP at (8) DVT prophylaxis Is this a current diagnosis for this admission?: YesSummary: Patient is now ambulatory - Additional Information Resuscitation Status: Full Code Discharge Diet: Diabetic Discharge Activity: Activity As Tolerated Home Medications: Amlodipine Besylate [Norvasc 2.5 mg Tablet] 2.5 mg PO QHS 05/10/16 Glipizide [Glucotrol 5 mg Tablet] 5 mg PO Q12 05/10/16 Lisinopril [Prinivil] 20 mg PO Q12 05/10/16 Metformin HCl [Glucophage] 1,000 mg PO Q12 05/10/16 Metoprolol Tartrate [Lopressor 100 mg Tablet] 100 mg PO Q12 05/10/16 Acetaminophen [Tylenol 325 mg Tablet] 650 mg PO Q4HP PRN tablet 05/14/16 Atorvastatin Calcium [Lipitor 10 mg Tablet] 10 mg PO QHS tablet 05/14/16 Famotidine [Pepcid 20 mg Tablet] 20 mg PO Q12 #10 tablet 05/14/16 Fluticasone Propionate [Flonase Nasal Harned 50 Mcg/Harned 16 gm] 2 spray NASL Q12 spray.pump 05/14/16 Fluticasone/Salmeterol [Advair 250-50 Diskus 14 Dose/Diskus] 1 inh IH Q12 inhaler 05/14/16 Fluticasone/Salmeterol [Advair 250-50 Diskus 28 dose] 1 inh IH Q12H #1 inhaler 05/14/16 Guaifenesin [Robitussin Syrup 200 mg/10 ml Ud Cup] 200 mg PO Q4HP PRN udc 05/14 Montelukast Sodium [Singulair 10 mg Tablet] 10 mg PO QHS #30 tablet 05/14/16 Mupirocin Calcium [Bactroban 2% Cream 15 gm] 1 applic TP BID tube 05/14/16 Prednisone [Deltasone 20 mg Tablet] 20 mg PO ASDIR #5 tablet 05/14/16 Sulfamethoxazole/Trimethoprim [Septra-Ds 800-160 mg Tablet] 1 tab PO Q12 #18 tablet 05/14/16 History of Present Illness Patient complains of: Shortness of breath, wheezing and cough History of Present Illness: DAYTON MENDOZA is a 35 year old female who presents to [facility]'s emergency room on 05/10/2016, with complaints of increasing shortness of breath, wheezing, and dyspnea. Patient is a morbidly obese insulin- dependent diabetic -English female with underlying history of moderate asthma, hyperlipidemia, and essential hypertension. She was assessed to be mildly in distress and borderline hypoxemic with a room air oxygen saturation of 88%. She had been seen in the emergency room on the given prescriptions for azithromycin and prednisone which she never obtained from the pharmacy. He had multiple admissions for asthma exacerbations in the past year. She does use a daily inhaled steroid. She was placed on BiPAP therapy and referred to the hospitalist service for admission. Hospital Course Hospital Course: Patient was admitted to the [facility] on telemetry. She was given IV broad-spectrum antibiotics, IV steroids and [id number] nebulizer treatments. She gradually improved over the next 2 days. She no longer required BiPAP therapy. Blood cultures grew no bacteria her white count has normalized. She also notes was noted to have a small furuncle in her left groin approximately 1 cm in diameter. It was not fluctuant. She was placed on oral Bactrim. Her prednisone has been tapered to oral therapy. Today she is ambulating and saturating well on room air. She is ready for discharge home. Physical Exam Vital Signs: Temp Pulse Resp BP Pulse Ox 98.4 F 87 16 172/95 H 96 05/14/16 12:13 05/14/16 13:57 05/14/16 13:57 05/14/16 12:13 05/14/16 12:13 Intake & Output 05/13/16 05/14/16 05/15/16 06:59 06:59 06:59 Intake Total 3951 3750 2280 Output Total 4950 Balance -999 3750 2280 Weight 146.5 kg 146.6 kg General appearance: PRESENT: no acute distress, morbidly obese, well-developed, well-nourished Head exam: PRESENT: atraumatic, normocephalic Eye exam: PRESENT: conjunctiva pink, EOMI, PERRLA. ABSENT: scleral icterus Ear exam: PRESENT: normal external ear exam Mouth exam: PRESENT: moist, tongue midline Neck exam: ABSENT: carotid bruit, JVD, lymphadenopathy, thyromegaly Respiratory exam: PRESENT: clear to auscultation russell. ABSENT: rales, rhonchi, wheezes Cardiovascular exam: PRESENT: RRR. ABSENT: diastolic murmur, rubs, systolic murmur Pulses: PRESENT: normal dorsalis pedis pul Vascular exam: PRESENT: normal capillary refill GI/Abdominal exam: PRESENT: normal bowel sounds, soft. ABSENT: distended, guarding, mass, organolmegaly, rebound, tenderness Rectal exam: PRESENT: deferred Extremities exam: PRESENT: full ROM. ABSENT: calf tenderness, clubbing, pedal edema Neurological exam: PRESENT: alert, awake, oriented to person, oriented to place , oriented to time, oriented to situation, CN II-XII grossly intact. ABSENT: motor sensory deficit Psychiatric exam: PRESENT: appropriate affect, normal mood. ABSENT: homicidal ideation, suicidal ideation Skin exam: PRESENT: dry, intact, warm. ABSENT: cyanosis, rash Results Laboratory Results: 05/14/16 06:00 05/14/16 06:00 05/14/16 05/14/16 06:00 06:00 WBC 13.4 H RBC 4.77 Hgb 12.0 Hct 35.8 L MCV 75 L MCH 25.1 L MCHC 33.5 RDW 15.5 H Plt Count 177 Seg Neutrophils % 79.2 H Lymphocytes % 13.3 Monocytes % 7.4 Eosinophils % 0.0 Basophils % 0.1 Absolute Neutrophils 10.6 H Absolute Lymphocytes 1.8 Absolute Monocytes 1.0 Absolute Eosinophils 0.0 Absolute Basophils 0.0 Sodium 135.6 L Potassium 4.5 Chloride 101 Carbon Dioxide 27 Anion Gap 8 BUN 20 Creatinine 0.68 Est GFR ( Amer) > 60 Est GFR (Non-Af Amer) > 60 Glucose 279 H Calcium 9.2 05/10/16 05/10/16 05:00 05:00 Creatine Kinase 165 H CK-MB (CK-2) 0.90 Troponin I 0.046 Impressions: Chest X-Ray 05/09/16 20:07 IMPRESSION: NO ACUTE RADIOGRAPHIC FINDING IN THE CHEST. Qualifiers PATEINT BEING DISCHARGED WITH ANY OF THE FOLLOWING DIAGNOSIS?: No Plan Discharge Plan: Home with family Time Spent: Less than 30 Minutes
== END 2016-05-14 14:17 | disposition home or self-care (01) | DRG 189 ==
LOC: ER 19:27 → EH 23:18 → UNDOADMIN 23:18 → EH 05-10 01:25 → 3S 05-10 21:51
PROVIDERS: ADMIT Family Medicine; ATTEND Family Medicine
DX: J96.21 Acute and chronic respiratory failure with hypoxia (principal); J18.9 Pneumonia, unspecified organism; J45.901 Unspecified asthma with (acute) exacerbation; I50.32 Chronic diastolic (congestive) heart failure; Z68.41 Body mass index [BMI] 40.0-44.9, adult; F31.89 Other bipolar disorder; E11.9 Type 2 diabetes mellitus without complications; I11.0 Hypertensive heart disease with heart failure; K21.9 Gastro-esophageal reflux disease without esophagitis; E78.5 Hyperlipidemia, unspecified; G47.33 Obstructive sleep apnea (adult) (pediatric); E66.01 Morbid (severe) obesity due to excess calories; Z88.1 Allergy status to other antibiotic agents; Z88.0 Allergy status to penicillin; Z91.030 Bee allergy status; Z79.84 Long term (current) use of oral hypoglycemic drugs; Z79.82 Long term (current) use of aspirin; Z79.52 Long term (current) use of systemic steroids; Z79.51 Long term (current) use of inhaled steroids
CPT/HCPCS: 36415; 71010; 80048; 80053; 81001; 82550; 82553; 82803; 82962; 84484; 84703; 85025; 87040; 87077; 87804; 93005; 93010; 94640; 94660; 94799; 96365; 96366; 96375; 99291; J0456; J1644; J1815; J2405; J2930; J3475; J3480; J3490; J7030; J7060; J7512; J7620; S0164

== ENCOUNTER 2016-05-16 20:03 | Inpatient (IN) | payer OTHER ==
[2016-05-16] MEDS ORDERED: ONDANSETRON 4 MG TAB.RAPDIS PO ONE (20:41)
--- NOTE | 2016-05-16 20:44 | ER Document Report ---
ED Medical Screen (RME) - General Stated Complaint: VOMITING/WHEEZING Notes: Patient states she was just released from the hospital on Tuesday for asthma and pneumonia. States she is here because she is still having difficulty breathing , and can't stop vomiting. Denies fever. I have greeted and performed a rapid initial assessment of this patient. A comprehensive ED assessment and evaluation of the patient, analysis of test results and completion of the medical decision making process will be conducted by additional ED providers. TRAVEL OUTSIDE OF THE [place] IN LAST 30 DAYS: No - Related Data Allergies/Adverse Reactions: amoxicillin [Amoxicillin] Allergy (Verified 05/06/16 19:02) Penicillins Allergy (Verified 05/06/16 19:02) Bees/Wasp Allergy (Uncoded 05/06/16 19:02) Past Medical History - Social History Family history: CAD, DM, Hypertension, Malignancy - Past Medical History Cardiac Medical History: Reports: Hx Hypercholesterolemia, Hx Hypertension Pulmonary Medical History: Reports: Hx Asthma, Hx Pneumonia Neurological Medical History: Denies: Hx Seizures Endocrine Medical History: Reports: Hx Diabetes Mellitus Type 2. Denies: Hx Diabetes Mellitus Type 1 Renal/ Medical History: Reports: Hx Kidney Stones. Denies: Hx Peritoneal Dialysis GI Medical History: Denies: Hx Cirrhosis, Hx Crohn's Disease, Hx Hepatitis Psychiatric Medical History: Reports: Hx Anxiety, Hx Bipolar Disorder, Hx Depression Infectious Medical History: Denies: Hx Hepatitis Past Surgical History: Reports: Hx Cholecystectomy, Hx Herniorrhaphy, Hx Umbilical Hernia - Immunizations Immunizations up to date: No Hx Diphtheria, Pertussis, Tetanus Vaccination: Yes Physical Exam - Vital signs Vitals: Temp Pulse Resp Pulse Ox 98.2 F 122 H 16 94 05/16/16 20:24 05/16/16 20:24 05/16/16 20:24 05/16/16 20:24 - Respiratory Notes: Patient with wheezing and decreased air movement on auscultation. Jennifer OTT made aware. No nebulizer ordered at this time due to elevated pulse and heart rate. M.D. to evaluate. Course - Vital Signs Vital signs: Temp Pulse Resp BP Pulse Ox 98.2 F 122 H 16 125/88 H 94 05/16/16 20:24 05/16/16 20:26 05/16/16 20:24 05/16/16 20:26 05/16/16 20:24
[2016-05-16 21:25] LABS: ALANINE AMINOTRANSFERASE 37 U/L (9-52); ALBUMIN 3.9 g/dL (3.5-5.0); ALKALINE PHOSPHATASE 62 U/L (38-126); ANION GAP 12 (5-19); ASPARTATE AMINO TRANSFERASE 26 U/L (14-36); BILIRUBIN,TOTAL 0.9 mg/dL (0.2-1.3); BLOOD UREA NITROGEN 23 mg/dL (7-20); CALCIUM 8.9 mg/dL (8.4-10.2); CARBON DIOXIDE 23 mmol/L (22-30); CHLORIDE 98 mmol/L (98-107); CREATININE RESULT 0.79 mg/dL (0.52-1.25); GLUCOSE 395 mg/dL (75-110); POTASSIUM 4.4 mmol/L (3.6-5.0); SODIUM 132.9 mmol/L (137-145); TOTAL PROTEIN 6.9 g/dL (6.3-8.2)
[2016-05-16] MEDS ORDERED: NORMAL SALINE 1000 ML 1,000 ML IV ONE (21:38)
[2016-05-16] MEDS ORDERED: IPRATROPIUM/ALBUTEROL 0.5-2.5 MG/3 ML AMPUL NEB ONE (21:59)
[2016-05-16 22:00] LABS: ARTERIAL BLOOD BASE EXCESS 1.4 mmol/L; ARTERIAL BLOOD O2 SATURATION 96.8 % (94-98)
[2016-05-16] MEDS ORDERED: ONDANSETRON HCL INJ/PF 4 MG/2 ML SDV IV ONE (22:25)
[2016-05-16] MEDS ORDERED: METHYLPREDNISOLONE INJ 125 MG/2 ML SDV IV ONE (22:32)
[2016-05-16] MEDS ORDERED: INSULIN REG, HUMAN 100 UNIT/ML 3 ML VIAL (PYX) SUBCUT ONE (22:32)
[2016-05-16 22:34] LABS: HEMATOCRIT 46.8 % (36.0-47.0); HGB HCT DIFFERENCE -0.9; MEAN CORPUSCULAR HEMOGLOBIN 24.9 pg (27.0-33.4); MEAN CORPUSCULAR HGB CONC 32.7 g/dL (32.0-36.0); MEAN CORPUSCULAR VOLUME 76 fl (80-97); RED BLOOD COUNT 6.15 10^6/uL (3.72-5.28); RED CELL DISTRIBUTION WIDTH 16.3 % (11.5-14.0); WHITE BLOOD COUNT 21.2 10^3/uL (4.0-10.5)
[2016-05-16 23:17] LABS: HEMOGLOBIN 15.3 g/dL (12.0-15.5)
[2016-05-16 23:20] LABS: BAND NEUTROPHILS % (MANUAL) 1 % (3-5); BASOPHILS % (MANUAL) 0 % (0-2); EOSINOPHILS % (MANUAL) 0 % (0-6); LYMPHOCYTES % (MANUAL) 19 % (13-45); TOTAL CELLS COUNTED 100
[2016-05-16 23:24] LABS: ANISOCYTOSIS 1+; MICROCYTOSIS SLIGHT; POIKILOCYTOSIS 2+; POLYCHROMASIA SLIGHT; TOXIC VACUOLATION PRESENT
[2016-05-16 23:25] LABS: OVALOCYTES 1+; STOMATOCYTES SLIGHT; TEAR DROP CELLS SLIGHT
[2016-05-16 23:29] LABS: PROTHROMBIN TIME 13.4 SEC (11.4-15.4)
[2016-05-17 00:25] LABS: APPEARANCE,URINE CLEAR; BILIRUBIN,URINE NEGATIVE (NEGATIVE); GLUCOSE, URINE >=500 mg/dL (NEGATIVE); KETONES,URINE NEGATIVE (NEGATIVE); LEUKOCYTE ESTERASE,URINE NEGATIVE (NEGATIVE); NITRITE,URINE NEGATIVE (NEGATIVE); PROTEIN,URINE NEGATIVE (NEGATIVE); URINE SPECIFIC GRAVITY 1.023; UROBILINOGEN,URINE NEGATIVE mg/dL (<2.0)
[2016-05-17] MEDS ORDERED: LEVOFLOXACIN 750 MG/D5W RTU 150 ML IV ONE (00:40)
[2016-05-17] MEDS ORDERED: NORMAL SALINE 1000 ML 1,000 ML IV ONE (03:06)
--- NOTE | 2016-05-17 05:10 | ER Document Report ---
ED Respiratory Problem - General Chief Complaint: Nausea/Vomiting Stated Complaint: VOMITING/WHEEZING Mode of Arrival: Ambulatory Information source: Patient Notes: 35 y/o F presents to ED c/o sob and n/v. Pt reports was discharged from hospital 3 days ago after admission for pneumonia and asthma exacerbation. Reports has remained sob worse with exertion since discharge. Reports yesterday also developed n/v and generalized abdominal pain. Reports subjective fever. Denies chest pain, hemoptysis, or hematemesis. TRAVEL OUTSIDE OF THE [place] IN LAST 30 DAYS: No - HPI Patient complains to provider of: Asthma, Cough, Short of breath Onset: Last week Duration: Worse/persistent Quality of pain: Achy Severity: Moderate Pain Level: 3 Short of Breath: Moderate Chest pain/discomfort: Tightness Cough: Nonproductive At home treatment: Bronchodilators, Inhaled steroids, Oral steroids Similar symptoms previously: Yes Recently seen / treated by doctor: Yes - Related Data Allergies/Adverse Reactions: amoxicillin [Amoxicillin] Allergy (Verified 05/06/16 19:02) Penicillins Allergy (Verified 05/06/16 19:02) Bees/Wasp Allergy (Uncoded 05/06/16 19:02) Past Medical History - General Information source: Patient - Social History Smoking Status: Never Smoker Frequency of alcohol use: None Drug Abuse: None Lives with: Family Family History: Reviewed & Not Pertinent - Past Medical History Cardiac Medical History: Reports: Hx Hypercholesterolemia, Hx Hypertension Pulmonary Medical History: Reports: Hx Asthma, Hx Pneumonia Neurological Medical History: Denies: Hx Seizures Endocrine Medical History: Reports: Hx Diabetes Mellitus Type 2. Denies: Hx Diabetes Mellitus Type 1 Renal/ Medical History: Reports: Hx Kidney Stones. Denies: Hx Peritoneal Dialysis GI Medical History: Denies: Hx Cirrhosis, Hx Crohn's Disease, Hx Hepatitis Psychiatric Medical History: Reports: Hx Anxiety, Hx Bipolar Disorder, Hx Depression Infectious Medical History: Denies: Hx Hepatitis Past Surgical History: Reports: Hx Cholecystectomy, Hx Herniorrhaphy, Hx Umbilical Hernia - Immunizations Immunizations up to date: No Hx Diphtheria, Pertussis, Tetanus Vaccination: Yes Hx Pneumococcal Vaccination: 07/28/15 Review of Systems - Review of Systems Constitutional: See HPI EENT: No symptoms reported Cardiovascular: No symptoms reported Respiratory: See HPI Gastrointestinal: See HPI Genitourinary: No symptoms reported Female Genitourinary: No symptoms reported Musculoskeletal: No symptoms reported Skin: No symptoms reported Hematologic/Lymphatic: No symptoms reported Neurological/Psychological: No symptoms reported -: Yes All other systems reviewed and negative Physical Exam - Vital signs Vitals: Resp 26 H 05/16/16 20:05 - General General appearance: Alert In distress: None - HEENT Head: Normocephalic, Atraumatic Eyes: Normal Pupils: PERRL Ears: Normal External canal: Normal Tympanic membrane: Normal Sinus: Normal Nasal: Normal Mouth/Lips: Normal Mucous membranes: Normal, Moist Pharynx: Normal. No: Blood in hypopharynx, Erythema, Exudate, Peritonsillar abscess, Post nasal drainage, Retropharyngeal abscess, Tonsillar hypertrophy, Uvular edema, Potential airway comprom., Other Neck: Normal. No: Anterior cervical chain, Posterior cervical chain, Lymphadenopathy, Meningismus, Subcutaneous emphysema - Respiratory Respiratory status: No respiratory distress Chest status: Nontender Breath sounds: Nonproductive cough, Rhonchi - scattered bilaterally R>L, Wheezing - bilateral expiratory R>L Chest palpation: Normal - Cardiovascular Rhythm: Regular Heart sounds: Normal auscultation Murmur: No Pulses: Normal: Radial Normal capillary refill: Yes - Abdominal Inspection: Morbidly Obese Distension: No distension Bowel sounds: Normal Tenderness: Tender - mild diffuse tenderness with palpation. No: Nontender, McBurney's point, Michelle's sign, Guarding, Rebound, Other Organomegaly: No organomegaly - Back Back: Normal, Nontender - Extremities General upper extremity: Normal inspection, Nontender, Normal color, Normal ROM , Normal strength, Normal temperature. No: Tender, Edema General lower extremity: Normal inspection, Nontender, Normal color, Normal ROM , Normal strength, Normal temperature, Normal weight bearing. No: Tender, Edema , Shawn's sign - Neurological Neuro grossly intact: Yes Cognition: Normal Orientation: AAOx4 Cassandra Coma Scale Eye Opening: Spontaneous Cassandra Coma Scale Verbal: Oriented Cassandra Coma Scale Motor: Obeys Commands [place] Coma Scale Total: 15 Speech: Normal Motor strength normal: LUE, RUE, LLE, RLE Sensory: Normal - Psychological Associated symptoms: Normal affect, Normal mood - Skin Skin Temperature: Warm Skin Moisture: Dry Skin Color: Normal Course - Re-evaluation Re-evalutation: 05/17/16 04:20 Pt hemodynamically stable, afebrile. Leukocytosis and hyperglycemia on labs. Initial tachycardia resolved after 2L NS bolus. Chest Xray shows reactive airway disease vs viral syndrome. Chest and Abd/pelvic CT with contrast with no significant findings however poor contrast bolus per radiologist to adequately assess arteries. Pt received nebulized bronchodilator and IV solumderol which resolved her dyspnea at rest however when ambulated on room air became hypoxic and dizzy with O2 saturation ranging from 88-90%. Pt presentation, findings, and ED care was discussed with hospitalist Dr. Elmore who requests repeat ABG prior to evaluating/admitting patient in the ED. ED physician Dr. Byrd was consulted after initial assesment and was involved in evaluation and treatment plan per [facility] guidelines. - Vital Signs Vital signs: Temp Pulse Resp BP Pulse Ox 98.2 F 122 H 22 H 130/96 H 93 05/16/16 20:24 05/16/16 20:26 05/17/16 05:43 05/17/16 05:43 05/17/16 05:43 Selected Entries 05/17/16 04:17 Heart Rate ( 97 Monitors) Respiratory 17 Rate Blood Pressure 120/87 H O2 Sat by Pulse 92 Oximetry - Laboratory Result Diagrams: 05/16/16 22:14 05/16/16 21:00 Laboratory results interpreted by me: 05/16/16 05/16/16 05/16/16 21:00 21:35 22:14 WBC 21.2 H RBC 6.15 H MCV 76 L MCH 24.9 L RDW 16.3 H Band Neutrophils % 1 L Abs Neuts (Manual) 14.8 H Abs Lymphs (Manual) 5.3 H Carbonic Acid 1.01 L ABG pH 7.48 H ABG pCO2 33.5 L ABG Total CO2 25.2 H Sodium 132.9 L BUN 23 H Glucose 395 H POC Glucose Urine Glucose (UA) Urine Blood 05/16/16 05/17/16 05/17/16 23:47 02:30 05:00 WBC RBC MCV MCH RDW Band Neutrophils % Abs Neuts (Manual) Abs Lymphs (Manual) Carbonic Acid 0.99 L ABG pH ABG pCO2 33.0 L ABG Total CO2 Sodium BUN Glucose POC Glucose 350 H Urine Glucose (UA) >=500 H Urine Blood LARGE H - Diagnostic Test Radiology reviewed: Image reviewed, Reports reviewed - EKG Interpretation by Me EKG shows normal: Sinus rhythm, Concan, Intervals, QRS Complexes, ST-T Waves Rate: Normal Rhythm: NSR When compared to previous EKG there are: No significant change Discharge - Discharge Clinical Impression: SOB (shortness of breath) on exertion, Hyperglycemia Condition: Stable Disposition: ADMITTED INPATIENT Admitting Provider: [facility] Admitted: Telemetry
[2016-05-17 05:23] LABS: ARTERIAL BLOOD BASE EXCESS -1.5 mmol/L; ARTERIAL BLOOD O2 SATURATION 97.2 % (94-98)
[2016-05-17] MEDS ORDERED: MAGNESIUM HYDROXIDE SUSP 30 ML UDCUP PO PRN (05:45)
[2016-05-17] MEDS ORDERED: DEXTROSE 50%-WATER 25 GM/50 ML DISP.SYRIN IV PRN ×2 (05:45)
[2016-05-17] MEDS ORDERED: MAG HYDROX/AL HYDROX/SIMETH SUSP 30 ML UDCUP PO PRN (05:45)
[2016-05-17] MEDS ORDERED: IPRATROPIUM/ALBUTEROL 0.5-2.5 MG/3 ML AMPUL NEB PRN (05:45)
[2016-05-17] MEDS ORDERED: ACETAMINOPHEN 325 MG TABLET PO PRN (05:45)
[2016-05-17] MEDS ORDERED: DEXTROSE 40% GEL 15 GM TUBE PO PRN ×2 (05:45)
[2016-05-17] MEDS ORDERED: GLUCAGON,HUMAN RECOMB 1 MG INJ IM PRN (05:45)
[2016-05-17] MEDS ORDERED: GUAIFENESIN SYRP 200 MG/10 ML UDC PO PRN (05:48)
[2016-05-17] MEDS: HEPARIN SOD (PORCINE) 5,000 UNIT/ML 1 ML SYRINGE SUBCUT SCH ×3 (06:00→21:57)
[2016-05-17] MEDS: LANSOPRAZOLE 30 MG TAB.RAP.DR PO SCH ×2 (06:00→06:14)
[2016-05-17] MEDS ORDERED: FLUTICASONE NASAL SPRAY 50 MCG/SPRY 120 SPRAY/16 GM ONE (06:10)
[2016-05-17] MEDS: LORATADINE 10 MG TABLET PO SCH (06:14)
[2016-05-17 06:19] LABS: URINE BARBITURATES SCREEN NEGATIVE; URINE METHADONE SCREEN NEGATIVE; URINE OPIATES LOW NEGATIVE; URINE PHENCYCLIDINE SCREEN NEGATIVE
--- NOTE | 2016-05-17 06:19 | PDOC H&P ---
History of Present Illness Patient complains of: Shortness of breath and wheeze History of Present Illness: DAYTON MENDOZA is a 35 year old female with a past medical history of diabetes ,Morbid obesity, obstructive sleep apnea, hypertension, dyslipidemia, GERD and poorly controlled asthma who'd been her usual state of health until 3 days ago when she returned home from a hospitalization for asthma. She denies missing any meds and is unaware of triggers to her asthma but admits exposure to air freshener and perfumes at home in addition her asthma is exacerbated by lying down concerning for poorly controlled GERD a reclining after meals. In the emergency room she's had a an extensive workup including CT of the chest abdomen pelvis without findings though a peak flow of only 200 after multiple treatments of albuterol and Atrovent with steroids she is minimally improved remaining with a peak flow of only 200. And referred to the hospitalist for admission Past Medical History Cardiac Medical History: Reports: Hyperlipidema, Hypertension Pulmonary Medical History: Reports: Asthma, Pneumonia Neurological Medical History: Denies: Seizures Endocrine Medical History: Reports: Diabetes Mellitus Type 2 Denies: Diabetes Mellitus Type 1 GI Medical History: Denies: Cirrhosis, Crohn's Disease, Hepatitis Psychiatric Medical History: Reports: Bipolar Disorder, Depression Past Surgical History Past Surgical History: Reports: Cholecystectomy, Herniorrhaphy Social History Information Source: Patient Lives with: Family Smoking Status: Never Smoker Frequency of Alcohol Use: Occasional Hx Recreational Drug Use: No Drugs: None Hx Prescription Drug Abuse: No - Advance Directive Resuscitation Status: Full Code Family History Family History: Hypertension Parental Family History Reviewed: Yes Children Family History Reviewed: Yes Sibling(s) Family History Reviewed.: Yes Medication/Allergy Home Medications: Amlodipine Besylate [Norvasc 2.5 mg Tablet] 2.5 mg PO QHS 05/10/16 Glipizide [Glucotrol 5 mg Tablet] 5 mg PO Q12 05/10/16 Lisinopril [Prinivil] 20 mg PO Q12 05/10/16 Metformin HCl [Glucophage] 1,000 mg PO Q12 05/10/16 Metoprolol Tartrate [Lopressor 100 mg Tablet] 100 mg PO Q12 05/10/16 Acetaminophen [Tylenol 325 mg Tablet] 650 mg PO Q4HP PRN tablet 05/14/16 Atorvastatin Calcium [Lipitor 10 mg Tablet] 10 mg PO QHS tablet 05/14/16 Famotidine [Pepcid 20 mg Tablet] 20 mg PO Q12 #10 tablet 05/14/16 Fluticasone Propionate [Flonase Nasal [place] 50 Mcg/[place] 16 gm] 2 spray NASL Q12 spray.pump 05/14/16 Fluticasone/Salmeterol [Advair 250-50 Diskus 14 Dose/Diskus] 1 inh IH Q12 inhaler 05/14/16 Fluticasone/Salmeterol [Advair 250-50 Diskus 28 dose] 1 inh IH Q12H #1 inhaler 05/14/16 Guaifenesin [Robitussin Syrup 200 mg/10 ml Ud Cup] 200 mg PO Q4HP PRN udc 05/14 Montelukast Sodium [Singulair 10 mg Tablet] 10 mg PO QHS #30 tablet 05/14/16 Mupirocin Calcium [Bactroban 2% Cream 15 gm] 1 applic TP BID tube 05/14/16 Prednisone [Deltasone 20 mg Tablet] 20 mg PO ASDIR #5 tablet 05/14/16 Sulfamethoxazole/Trimethoprim [Septra-Ds 800-160 mg Tablet] 1 tab PO Q12 #18 tablet 05/14/16 Allergies/Adverse Reactions: amoxicillin [Amoxicillin] Allergy (Verified 05/06/16 19:02) Penicillins Allergy (Verified 05/06/16 19:02) Bees/Wasp Allergy (Uncoded 05/06/16 19:02) Review of Systems Constitutional: PRESENT: fatigue, weakness Eyes: ABSENT: visual disturbances Ears: ABSENT: hearing changes Nose, Mouth, and Throat: PRESENT: sore throat, other - Occasional Rhinorrhea. ABSENT: mouth pain Cardiovascular: PRESENT: dyspnea on exertion. ABSENT: chest pain, edema, orthropnea, palpitations Respiratory: PRESENT: as per HPI, cough, dyspnea. ABSENT: hemoptysis, sputum Gastrointestinal: PRESENT: bloating, constipation, heartburn. ABSENT: diarrhea , dysphagia, hematemesis, hematochezia, melena, nausea, vomiting Genitourinary: ABSENT: dysuria, hematuria Musculoskeletal: ABSENT: joint swelling Integumentary: ABSENT: rash, wounds Neurological: ABSENT: abnormal gait, abnormal speech, confusion, dizziness, focal weakness, syncope Psychiatric: ABSENT: anxiety, depression, homidical ideation, suicidal ideation Endocrine: ABSENT: cold intolerance, heat intolerance, polydipsia, polyuria Hematologic/Lymphatic: ABSENT: easy bleeding, easy bruising Physical Exam Vital Signs: Temp Pulse Resp BP Pulse Ox 98.2 F 122 H 22 H 130/96 H 93 05/16/16 20:24 05/16/16 20:26 05/17/16 05:43 05/17/16 05:43 05/17/16 05:43 Intake & Output 05/15/16 05/16/16 05/17/16 11:59 11:59 11:59 Weight 144.5 kg General appearance: PRESENT: cooperative, morbidly obese Head exam: PRESENT: atraumatic, normocephalic Eye exam: PRESENT: conjunctiva pink, EOMI, PERRLA. ABSENT: scleral icterus Ear exam: PRESENT: normal external ear exam Mouth exam: PRESENT: moist, tongue midline Neck exam: ABSENT: carotid bruit, JVD, lymphadenopathy, thyromegaly Respiratory exam: PRESENT: accessory muscle use, decreased breath sounds, prolonged expiratory phas, symmetrical, tachypnea, wheezes. ABSENT: chest wall tenderness, clear to auscultation russell, crackles, rales, retraction, rhonchi, stridor Cardiovascular exam: PRESENT: RRR. ABSENT: diastolic murmur, rubs, systolic murmur Pulses: PRESENT: normal dorsalis pedis pul Vascular exam: PRESENT: normal capillary refill GI/Abdominal exam: PRESENT: normal bowel sounds, soft. ABSENT: distended, guarding, mass, organolmegaly, rebound, tenderness Rectal exam: PRESENT: deferred Extremities exam: PRESENT: full ROM. ABSENT: calf tenderness, clubbing, pedal edema Neurological exam: PRESENT: alert, awake, oriented to person, oriented to place , oriented to time, oriented to situation, CN II-XII grossly intact. ABSENT: motor sensory deficit Psychiatric exam: PRESENT: appropriate affect, normal mood. ABSENT: homicidal ideation, suicidal ideation Skin exam: PRESENT: dry, intact, warm. ABSENT: cyanosis, rash Results Laboratory Results: 05/16/16 22:14 05/16/16 21:00 05/16/16 05/16/16 05/16/16 21:00 21:00 21:00 WBC Cancelled RBC Cancelled Hgb Cancelled Hct Cancelled MCV Cancelled MCH Cancelled MCHC Cancelled RDW Cancelled Plt Count Cancelled Seg Neutrophils % Cancelled Lymphocytes % Cancelled Monocytes % Cancelled Eosinophils % Cancelled Basophils % Cancelled Absolute Neutrophils Cancelled Absolute Lymphocytes Cancelled Absolute Monocytes Cancelled Absolute Eosinophils Cancelled Absolute Basophils Cancelled Carbonic Acid HCO3/H2CO3 Ratio ABG pH ABG pCO2 ABG pO2 ABG HCO3 ABG O2 Saturation ABG Base Excess VBG pH Cancelled VBG pCO2 Cancelled VBG HCO3 Cancelled VBG Base Excess Cancelled FiO2 Sodium 132.9 L Potassium 4.4 Chloride 98 Carbon Dioxide 23 Anion Gap 12 BUN 23 H Creatinine 0.79 Est GFR ( Amer) > 60 Est GFR (Non-Af Amer) > 60 Glucose 395 H Lactic Acid Calcium 8.9 Total Bilirubin 0.9 AST 26 ALT 37 Alkaline Phosphatase 62 Total Protein 6.9 Albumin 3.9 Lipase Serum HCG, Qual Urine Color Urine Appearance Urine pH Ur Specific [place] Urine Protein Urine Glucose (UA) Urine Ketones Urine Blood Urine Nitrite Ur Leukocyte Esterase Urine WBC (Auto) Urine RBC (Auto) 05/16/16 05/16/16 05/16/16 21:35 22:14 22:35 WBC 21.2 H RBC 6.15 H Hgb 15.3 D Hct 46.8 MCV 76 L MCH 24.9 L MCHC 32.7 RDW 16.3 H Plt Count 303 Seg Neutrophils % Not Reportable Lymphocytes % Not Reportable Monocytes % Not Reportable Eosinophils % Not Reportable Basophils % Not Reportable Absolute Neutrophils Not Reportable Absolute Lymphocytes Not Reportable Absolute Monocytes Not Reportable Absolute Eosinophils Not Reportable Absolute Basophils Not Reportable Carbonic Acid 1.01 L HCO3/H2CO3 Ratio 23:1 ABG pH 7.48 H ABG pCO2 33.5 L ABG pO2 82.1 ABG HCO3 24.2 ABG O2 Saturation 96.8 ABG Base Excess 1.4 VBG pH VBG pCO2 VBG HCO3 VBG Base Excess FiO2 ROOM AIR Sodium Potassium Chloride Carbon Dioxide Anion Gap BUN Creatinine Est GFR ( Amer) Est GFR (Non-Af Amer) Glucose Lactic Acid Calcium Total Bilirubin AST ALT Alkaline Phosphatase Total Protein Albumin Lipase Serum HCG, Qual NEGATIVE Urine Color Urine Appearance Urine pH Ur Specific [place] Urine Protein Urine Glucose (UA) Urine Ketones Urine Blood Urine Nitrite Ur Leukocyte Esterase Urine WBC (Auto) Urine RBC (Auto) 05/16/16 05/16/16 05/16/16 22:35 23:47 23:47 WBC RBC Hgb Hct MCV MCH MCHC RDW Plt Count Seg Neutrophils % Lymphocytes % Monocytes % Eosinophils % Basophils % Absolute Neutrophils Absolute Lymphocytes Absolute Monocytes Absolute Eosinophils Absolute Basophils Carbonic Acid HCO3/H2CO3 Ratio ABG pH ABG pCO2 ABG pO2 ABG HCO3 ABG O2 Saturation ABG Base Excess VBG pH VBG pCO2 VBG HCO3 VBG Base Excess FiO2 Sodium Potassium Chloride Carbon Dioxide Anion Gap BUN Creatinine Est GFR ( Amer) Est GFR (Non-Af Amer) Glucose Lactic Acid 1.4 Calcium Total Bilirubin AST ALT Alkaline Phosphatase Total Protein Albumin Lipase 170.8 Serum HCG, Qual Urine Color YELLOW Urine Appearance CLEAR Urine pH 5.0 Ur Specific [place] 1.023 Urine Protein NEGATIVE Urine Glucose (UA) >=500 H Urine Ketones NEGATIVE Urine Blood LARGE H Urine Nitrite NEGATIVE Ur Leukocyte Esterase NEGATIVE Urine WBC (Auto) 4 Urine RBC (Auto) 80 05/17/16 05:00 WBC RBC Hgb Hct MCV MCH MCHC RDW Plt Count Seg Neutrophils % Lymphocytes % Monocytes % Eosinophils % Basophils % Absolute Neutrophils Absolute Lymphocytes Absolute Monocytes Absolute Eosinophils Absolute Basophils Carbonic Acid 0.99 L HCO3/H2CO3 Ratio 22:1 ABG pH 7.44 ABG pCO2 33.0 L ABG pO2 89.8 ABG HCO3 21.8 ABG O2 Saturation 97.2 ABG Base Excess -1.5 VBG pH VBG pCO2 VBG HCO3 VBG Base Excess FiO2 3 L Sodium Potassium Chloride Carbon Dioxide Anion Gap BUN Creatinine Est GFR ( Amer) Est GFR (Non-Af Amer) Glucose Lactic Acid Calcium Total Bilirubin AST ALT Alkaline Phosphatase Total Protein Albumin Lipase Serum HCG, Qual Urine Color Urine Appearance Urine pH Ur Specific [place] Urine Protein Urine Glucose (UA) Urine Ketones Urine Blood Urine Nitrite Ur Leukocyte Esterase Urine WBC (Auto) Urine RBC (Auto) Impressions: Chest X-Ray 05/16/16 20:42 IMPRESSION: REACTIVE AIRWAY DISEASE VERSUS VIRAL SYNDROME. NO CONSOLIDATION. Abdomen/Pelvis CT 05/16/16 22:26 IMPRESSION: NO SIGNIFICANT OR ACUTE FINDING IN THE ABDOMEN OR PELVIS ON CT SCAN WITH IV CONTRAST. Chest/Abdomen CTA 05/16/16 22:26 IMPRESSION: Poor bolus, inadequate to evaluate the pulmonary arteries. Otherwise negative study. Assessment & Plan - Diagnosis (1) Asthma exacerbation Is this a current diagnosis for this admission?: YesPlan: History is suspicious for reactive airway from uncontrolled GERD versus household air freshener or perfumes, and is counseled to avoid these in addition to avoidance of large meals and reclining after eating. Given her peak flow of only 200 she will remain hospitalized until significantly improved treating with albuterol Atrovent steroid taper, optimization of GERD management and education (2) GERD (gastroesophageal reflux disease) Qualifiers: Esophagitis presence: without esophagitis Qualified Code(s): K21.9 - Gastro-esophageal reflux disease without esophagitis Is this a current diagnosis for this admission?: YesPlan: Avoid Eating while in bed, maximized proton pump inhibitor dose regiment (3) Diabetes mellitus type 2 in obese Is this a current diagnosis for this admission?: YesPlan: Continue sliding scale with home insulin obtain A1c and consider gastroparesis may contribute to acid reflux and asthma saturations (4) Morbid obesity with BMI of 40.0-44.9, adult Is this a current diagnosis for this admission?: YesPlan: Dietitian counseling (5) TAMEKA (obstructive sleep apnea) Is this a current diagnosis for this admission?: YesPlan: cpap while asleep - Time Time Spent: 50 to 70 Minutes - Inpatient Certification Medical Necessity: Need Close Monitoring Due to Risk of Patient Decompensation
[2016-05-17] MEDS: INSULIN LISPRO 100 UNIT/ML 3 ML VIAL SUBCUT PRN ×4 (06:20→22:52)
[2016-05-17] MEDS: CALCIUM CARBONATE 500 MG TAB.CHEW PO SCH ×4 (07:28→21:57)
[2016-05-17] MEDS: METFORMIN HCL 500 MG TABLET PO SCH ×2 (07:28→17:03)
[2016-05-17] MEDS: IPRATROPIUM/ALBUTEROL 0.5-2.5 MG/3 ML AMPUL NEB SCH ×3 (07:53→20:06)
--- NOTE | 2016-05-17 08:38 | EKG REPORT ---
SEVERITY:- NORMAL ECG - SINUS RHYTHM : Confirmed by: Tan Mobley 17-May-2016 08:37:05
[2016-05-17] MEDS: DOCUSATE SODIUM 100 MG CAPSULE PO SCH ×2 (09:26→17:19)
[2016-05-17] MEDS: GLIPIZIDE 5 MG TABLET PO SCH ×2 (09:27→21:58)
[2016-05-17] MEDS: METOPROLOL TARTRATE 100 MG TABLET PO SCH ×2 (09:27→21:58)
[2016-05-17] MEDS: PREDNISONE 20 MG TABLET PO SCH ×2 (09:27→17:19)
[2016-05-17] MEDS: FLUTICASONE NASAL SPRAY 50 MCG/SPRY 120 SPRAY/16 GM NASL SCH (09:29)
[2016-05-17] MEDS ORDERED: ONDANSETRON HCL INJ/PF 4 MG/2 ML SDV IV PRN (11:10)
[2016-05-17] MEDS: FLUTICASONE/SALMETEROL DISKUS 250-50 MCG/DOSE IH SCH (11:58)
[2016-05-17] MEDS ORDERED: INSULIN REG, HUMAN 100 UNIT/ML 3 ML VIAL (PYX) SUBCUT ONE (17:30)
[2016-05-17] MEDS ORDERED: LANSOPRAZOLE 30 MG TAB.RAP.DR PO ONE (17:30)
[2016-05-17] MEDS ORDERED: INSULIN LISPRO 100 UNIT/ML 3 ML VIAL SUBCUT ONE (19:45)
[2016-05-17] MEDS: BUDESONIDE NEB 0.5 MG/2 ML AMPUL NEB SCH (20:06)
[2016-05-17] MEDS: FLUCONAZOLE 100 MG TABLET PO SCH (21:56)
[2016-05-17] MEDS: AMLODIPINE BESYLATE 2.5 MG TABLET PO SCH (21:57)
[2016-05-17] MEDS: ATORVASTATIN CALCIUM 10 MG TABLET PO SCH (21:57)
[2016-05-17] MEDS: MONTELUKAST SODIUM 10 MG TABLET PO SCH (21:58)
[2016-05-17 23:53] LABS: URINE BARBITURATES SCREEN NEGATIVE; URINE METHADONE SCREEN NEGATIVE; URINE OPIATES LOW NEGATIVE; URINE PHENCYCLIDINE SCREEN NEGATIVE
[2016-05-18] MEDS: IPRATROPIUM/ALBUTEROL 0.5-2.5 MG/3 ML AMPUL NEB SCH ×2 (02:28→07:56)
[2016-05-18 05:40] LABS: MEAN CORPUSCULAR VOLUME 76 fl (80-97)
[2016-05-18 05:46] LABS: ABSOLUTE LYMPHOCYTES (AUTO) 2.4 10^3/uL (0.5-4.7); ABSOLUTE MONOCYTES (AUTO) 1.3 10^3/uL (0.1-1.4); ABSOLUTE NEUT (AUTO) 12.3 10^3/uL (1.7-8.2); BASOPHILS % (AUTO) 0.2 % (0-2); EOSINOPHILS % (AUTO) 0.2 % (0-6); HEMATOCRIT 36.1 % (36.0-47.0); HGB HCT DIFFERENCE -0.1; MEAN CORPUSCULAR HEMOGLOBIN 25.2 pg (27.0-33.4); MEAN CORPUSCULAR HGB CONC 33.2 g/dL (32.0-36.0); MONOCYTES % (AUTO) 7.8 % (3-13); RED BLOOD COUNT 4.75 10^6/uL (3.72-5.28); RED CELL DISTRIBUTION WIDTH 16.2 % (11.5-14.0); SEGMENTED NEUTROPHILS % (AUTO) 76.8 % (42-78)
[2016-05-18] MEDS: HEPARIN SOD (PORCINE) 5,000 UNIT/ML 1 ML SYRINGE SUBCUT SCH ×3 (05:59→21:42)
[2016-05-18 06:03] LABS: ANION GAP 8 (5-19); BLOOD UREA NITROGEN 20 mg/dL (7-20); CARBON DIOXIDE 25 mmol/L (22-30); CHLORIDE 102 mmol/L (98-107); CREATININE RESULT 0.68 mg/dL (0.52-1.25); GLUCOSE 306 mg/dL (75-110); POTASSIUM 4.5 mmol/L (3.6-5.0); SODIUM 135.4 mmol/L (137-145)
[2016-05-18] MEDS: LANSOPRAZOLE 30 MG TAB.RAP.DR PO SCH ×2 (06:13→17:38)
[2016-05-18] MEDS: BUDESONIDE NEB 0.5 MG/2 ML AMPUL NEB SCH ×2 (07:56→19:58)
[2016-05-18] MEDS: METFORMIN HCL 500 MG TABLET PO SCH ×2 (08:05→18:43)
[2016-05-18] MEDS: CALCIUM CARBONATE 500 MG TAB.CHEW PO SCH ×4 (08:15→21:38)
[2016-05-18] MEDS: INSULIN LISPRO 100 UNIT/ML 3 ML VIAL SUBCUT PRN ×4 (08:16→23:18)
[2016-05-18] MEDS: LORATADINE 10 MG TABLET PO SCH (09:32)
[2016-05-18] MEDS: DOCUSATE SODIUM 100 MG CAPSULE PO SCH ×2 (09:32→17:39)
[2016-05-18] MEDS: FLUTICASONE NASAL SPRAY 50 MCG/SPRY 120 SPRAY/16 GM NASL SCH (09:32)
[2016-05-18] MEDS: METOPROLOL TARTRATE 100 MG TABLET PO SCH ×2 (09:33→21:41)
[2016-05-18] MEDS: GLIPIZIDE 5 MG TABLET PO SCH ×2 (09:33→17:39)
[2016-05-18] MEDS: PREDNISONE 20 MG TABLET PO SCH ×2 (09:33→17:28)
[2016-05-18] MEDS ORDERED: (PENDING PHARMACY ID) (Lisinopril [Zestril] 20 MG) PO SCH (10:45)
[2016-05-18] MEDS ORDERED: METOPROLOL TARTRATE 100 MG TABLET PO SCH (10:45)
[2016-05-18] MEDS ORDERED: PROCHLORPERAZINE MALEATE 5 MG TABLET PO PRN (10:55)
[2016-05-18] MEDS ORDERED: LISINOPRIL 10 MG TABLET PO ONE (11:00)
[2016-05-18] MEDS ORDERED: ALBUTEROL SULFATE 0.083% NEB 2.5 MG/3 ML AMPUL NEB PRN (11:50)
[2016-05-18] MEDS ORDERED: MICONAZOLE NITRATE 2% VAGINAL CREAM 45 GM TUBE VG ONE (12:00)
--- NOTE | 2016-05-18 14:12 | PDOC PROGRESS REPORT ---
Subjective Progress Note for:: 05/18/16 Subjective:: The patient was seen earlier today on rounds. The patient denies any vomiting, diarrhea, dizziness, chest pain, heart palpitations, fevers, or chills. The patient states that she is still short of breath and admits to nausea. During the assessment the patient was able to fully complete sentences. Patient does complain of vaginal irritation. The patient has remained afebrile. Blood pressures have been in a good range. When prompted the patient voices no other concerns at this time. Review of systems: The rest of the review of systems is negative. Physical Exam Vital Signs: Temp Pulse Resp BP Pulse Ox 98.0 F 59 L 16 123/56 L 97 05/18/16 11:27 05/18/16 11:27 05/18/16 11:27 05/18/16 11:27 05/18/16 11:27 Intake & Output 05/16/16 05/17/16 05/18/16 23:59 23:59 23:59 Intake Total 3280 1950 Balance 3280 1950 Weight 139.706 kg 141.475 kg General appearance: PRESENT: no acute distress, cooperative, morbidly obese, well-developed Head exam: PRESENT: atraumatic, normocephalic Eye exam: PRESENT: conjunctiva pink, EOMI, PERRLA. ABSENT: scleral icterus Ear exam: PRESENT: normal external ear exam Mouth exam: PRESENT: moist, tongue midline Neck exam: ABSENT: carotid bruit, JVD, lymphadenopathy, thyromegaly Respiratory exam: PRESENT: symmetrical, unlabored, wheezes. ABSENT: rales, rhonchi, tachypnea Cardiovascular exam: PRESENT: RRR. ABSENT: diastolic murmur, rubs, systolic murmur Pulses: PRESENT: normal dorsalis pedis pul Vascular exam: PRESENT: normal capillary refill GI/Abdominal exam: PRESENT: normal bowel sounds, soft. ABSENT: distended, guarding, mass, organolmegaly, rebound, tenderness Rectal exam: PRESENT: deferred Extremities exam: PRESENT: full ROM. ABSENT: calf tenderness, clubbing, pedal edema Neurological exam: PRESENT: alert, awake, oriented to person, oriented to place , oriented to time, oriented to situation, CN II-XII grossly intact. ABSENT: motor sensory deficit Psychiatric exam: PRESENT: appropriate affect, normal mood. ABSENT: homicidal ideation, suicidal ideation Skin exam: PRESENT: dry, intact, warm. ABSENT: cyanosis, rash Results Laboratory Results: 05/18/16 05:21 05/18/16 05:21 Impressions: Chest X-Ray 05/16/16 20:42 IMPRESSION: REACTIVE AIRWAY DISEASE VERSUS VIRAL SYNDROME. NO CONSOLIDATION. Abdomen/Pelvis CT 05/16/16 22:26 IMPRESSION: NO SIGNIFICANT OR ACUTE FINDING IN THE ABDOMEN OR PELVIS ON CT SCAN WITH IV CONTRAST. Chest/Abdomen CTA 05/16/16 22:26 IMPRESSION: Poor bolus, inadequate to evaluate the pulmonary arteries. Otherwise negative study. Assessment & Plan - Diagnosis (1) Asthma exacerbation Is this a current diagnosis for this admission?: YesPlan: Continue current medications as well as steroids. Ambulate patient on room air and monitor oxygen saturation. Will obtain peak flow after nebulizers and after ambulation. Discontinue O2 (2) Acute and chronic respiratory failure Qualifiers: Respiratory failure complication: hypoxia Qualified Code(s): J96.21 - Acute and chronic respiratory failure with hypoxia Is this a current diagnosis for this admission?: YesPlan: Resolved. (3) Diastolic dysfunction Is this a current diagnosis for this admission?: YesPlan: No evidence of failure. The patient is optivolemic. (4) GERD (gastroesophageal reflux disease) Qualifiers: Esophagitis presence: without esophagitis Qualified Code(s): K21.9 - Gastro-esophageal reflux disease without esophagitis Is this a current diagnosis for this admission?: Yes (5) Diabetes mellitus type 2 in obese Is this a current diagnosis for this admission?: Yes (6) Hyperlipidemia Qualifiers: Hyperlipidemia type: unspecified Qualified Code(s): E78.5 - Hyperlipidemia, unspecified Is this a current diagnosis for this admission?: Yes (7) Yeast infection of the vagina Is this a current diagnosis for this admission?: YesPlan: Secondary to antibiotic use. Patient has got no relief with oral Diflucan will give vaginal Monistat. (8) Morbid obesity with BMI of 40.0-44.9, adult Is this a current diagnosis for this admission?: Yes (9) TAMEKA (obstructive sleep apnea) Is this a current diagnosis for this admission?: Yes (10) DVT prophylaxis Is this a current diagnosis for this admission?: Yes - Time Time Spent with patient: 25-34 minutes Medications reviewed and adjusted accordingly: Yes Anticipated discharge: Home Within: within 24 hours
[2016-05-18] MEDS ORDERED: INSULIN REG, HUMAN 100 UNIT/ML 3 ML VIAL (PYX) IV ONE (16:07)
[2016-05-18] MEDS: FLUTICASONE/SALMETEROL DISKUS 250-50 MCG/DOSE IH SCH (21:37)
[2016-05-18] MEDS: FLUCONAZOLE 100 MG TABLET PO SCH (21:38)
[2016-05-18] MEDS: ATORVASTATIN CALCIUM 10 MG TABLET PO SCH (21:38)
[2016-05-18] MEDS: LISINOPRIL 10 MG TABLET PO SCH (21:39)
[2016-05-18] MEDS: AMLODIPINE BESYLATE 2.5 MG TABLET PO SCH (21:40)
[2016-05-18] MEDS: MONTELUKAST SODIUM 10 MG TABLET PO SCH (21:41)
[2016-05-19] MEDS: HEPARIN SOD (PORCINE) 5,000 UNIT/ML 1 ML SYRINGE SUBCUT SCH ×2 (05:19→14:13)
[2016-05-19] MEDS: LANSOPRAZOLE 30 MG TAB.RAP.DR PO SCH (05:19)
[2016-05-19] MEDS: METFORMIN HCL 500 MG TABLET PO SCH (07:47)
[2016-05-19] MEDS: CALCIUM CARBONATE 500 MG TAB.CHEW PO SCH ×2 (07:47→11:32)
[2016-05-19] MEDS: INSULIN LISPRO 100 UNIT/ML 3 ML VIAL SUBCUT PRN ×2 (07:48→11:33)
[2016-05-19] MEDS: BUDESONIDE NEB 0.5 MG/2 ML AMPUL NEB SCH (08:17)
[2016-05-19] MEDS: METOPROLOL TARTRATE 100 MG TABLET PO SCH (09:14)
[2016-05-19] MEDS: LORATADINE 10 MG TABLET PO SCH (09:14)
[2016-05-19] MEDS: LISINOPRIL 10 MG TABLET PO SCH (09:15)
[2016-05-19] MEDS: FLUTICASONE NASAL SPRAY 50 MCG/SPRY 120 SPRAY/16 GM NASL SCH (09:16)
[2016-05-19] MEDS: GLIPIZIDE 5 MG TABLET PO SCH (09:16)
[2016-05-19] MEDS: PREDNISONE 20 MG TABLET PO SCH (09:16)
[2016-05-19] MEDS: DOCUSATE SODIUM 100 MG CAPSULE PO SCH (09:16)
[2016-05-19] MEDS: FLUTICASONE/SALMETEROL DISKUS 250-50 MCG/DOSE IH SCH (09:16)
[2016-05-19] MEDS ORDERED: MICONAZOLE NITRATE 2% VAGINAL CREAM 45 GM TUBE VG SCH (10:00)
[2016-05-19] MEDS ORDERED: INSULIN GLARGINE,HUM.REC.ANLOG 300 UNIT/3 ML INSULN.PEN SUBCUT ONE (12:30)
[2016-05-19] MEDS ORDERED: INFLUENZA ADLT QUAD (36MOS+) 2016-17 VAC 0.5 ML SYR IM PRN (13:41)
[2016-05-19 13:47] VITALS: BP 134/91
--- NOTE | 2016-05-19 17:08 | PDOC DISCHARGE SUMMARY ---
General - Admit/Disc Date/PCP Admission Date/Primary Care Provider: 05/17/16 05:45 [facility] Discharge Date: 05/19/16 - Discharge Diagnosis (1) Asthma exacerbation Is this a current diagnosis for this admission?: Yes (2) Acute and chronic respiratory failure Is this a current diagnosis for this admission?: Yes (3) Diastolic dysfunction Is this a current diagnosis for this admission?: Yes (4) GERD (gastroesophageal reflux disease) Is this a current diagnosis for this admission?: Yes (5) Diabetes mellitus type 2 in obese Is this a current diagnosis for this admission?: Yes (6) Hyperlipidemia Is this a current diagnosis for this admission?: Yes (7) Yeast infection of the vagina Is this a current diagnosis for this admission?: Yes (8) Morbid obesity with BMI of 40.0-44.9, adult Is this a current diagnosis for this admission?: Yes (9) TAMEKA (obstructive sleep apnea) Is this a current diagnosis for this admission?: Yes (10) DVT prophylaxis Is this a current diagnosis for this admission?: Yes - Additional Information Resuscitation Status: Full Code Discharge Diet: As Tolerated, Diabetic Discharge Activity: Activity As Tolerated Home Medications: Glipizide [Glucotrol 5 mg Tablet] 5 mg PO BID 05/17/16 Lisinopril [Zestril] 20 mg PO BID 05/17/16 Metformin HCl [Glucophage] 1,000 mg PO BID 05/17/16 Metoprolol Tartrate [Lopressor 100 mg Tablet] 100 mg PO BID 05/17/16 Naproxen 500 mg PO BID 05/17/16 Fluticasone Propionate [Flonase Nasal [place] 50 Mcg/[place] 16 gm] 2 spray NASL DAILY #1 spray.pump 05/19/16 Loratadine [Claritin 10 mg Tablet] 10 mg PO DAILY #30 tablet 05/19/16 History of Present Illness History of Present Illness: DAYTON MENDOZA is a 35 year old female with a past medical history of diabetes ,Morbid obesity, obstructive sleep apnea, hypertension, dyslipidemia, GERD and poorly controlled asthma who'd been her usual state of health until 3 days ago when she returned home from a hospitalization for asthma. She denies missing any meds and is unaware of triggers to her asthma but admits exposure to air freshener and perfumes at home in addition her asthma is exacerbated by lying down concerning for poorly controlled GERD a reclining after meals. In the emergency room she's had a an extensive workup including CT of the chest abdomen pelvis without findings though a peak flow of only 200 after multiple treatments of albuterol and Atrovent with steroids she is minimally improved remaining with a peak flow of only 200. And referred to the hospitalist for admission Hospital Course Hospital Course: The patient was admitted to [facility]. The patient was placed on scheduled nebs as well as PRN nebs, steroids, and supplemental oxygen. The patient's oxygen, steroids, and nebs were titrated and weaned. The patient is back to baseline and able to complete sentences. The patient's oxygen was discontinued and she was kept on a continuous O2 monitor overnight for her security. The patient did not have any episodes of transient hypoxia. The patient's yeast infection was treated with Monistat. The patient admitted to seasonal allergies and had not been taking antihistamine. Patient had complete symptom resolution is ready for discharge. Physical Exam Vital Signs: Temp Pulse Resp BP Pulse Ox 98.1 F 74 18 134/91 H 98 05/19/16 13:41 05/19/16 13:41 05/19/16 13:41 05/19/16 13:41 05/19/16 13:41 Pulse Oximeter Continuous Start: 05/18/16 15: 44 Freq: RTQ4 Status: Complete Document 05/19/16 10:51 [facility] (Rec: 05/19/16 10:52 [facility] [email or web address]) Pulse Oximetry Assessment Oxygen Saturation (92-100) 94 Oxygen Delivery Method Room Air Equipment Usage Equipment in Use Continuous SpO2 Machine # [id number] Intake & Output 05/17/16 05/18/16 05/19/16 23:59 23:59 23:59 Intake Total 3280 4734 4860 Output Total 2500 2000 Balance 3280 2234 2860 Weight 139.706 kg 141.4 kg General appearance: PRESENT: no acute distress, cooperative, morbidly obese, well-developed Head exam: PRESENT: atraumatic, normocephalic Eye exam: PRESENT: conjunctiva pink, EOMI, PERRLA. ABSENT: scleral icterus Ear exam: PRESENT: normal external ear exam Mouth exam: PRESENT: moist, tongue midline Neck exam: ABSENT: carotid bruit, JVD, lymphadenopathy, thyromegaly Respiratory exam: PRESENT: symmetrical, unlabored, wheezes. ABSENT: rales, rhonchi, tachypnea Cardiovascular exam: PRESENT: RRR. ABSENT: diastolic murmur, rubs, systolic murmur Pulses: PRESENT: normal dorsalis pedis pul Vascular exam: PRESENT: normal capillary refill GI/Abdominal exam: PRESENT: normal bowel sounds, soft. ABSENT: distended, guarding, mass, organolmegaly, rebound, tenderness Rectal exam: PRESENT: deferred Extremities exam: PRESENT: full ROM. ABSENT: calf tenderness, clubbing, pedal edema Neurological exam: PRESENT: alert, awake, oriented to person, oriented to place , oriented to time, oriented to situation, CN II-XII grossly intact. ABSENT: motor sensory deficit Psychiatric exam: PRESENT: appropriate affect, normal mood. ABSENT: homicidal ideation, suicidal ideation Skin exam: PRESENT: dry, intact, warm. ABSENT: cyanosis, rash Results Laboratory Results: 05/18/16 05:21 05/18/16 05:21 Impressions: Chest X-Ray 05/16/16 20:42 IMPRESSION: REACTIVE AIRWAY DISEASE VERSUS VIRAL SYNDROME. NO CONSOLIDATION. Abdomen/Pelvis CT 05/16/16 22:26 IMPRESSION: NO SIGNIFICANT OR ACUTE FINDING IN THE ABDOMEN OR PELVIS ON CT SCAN WITH IV CONTRAST. Chest/Abdomen CTA 05/16/16 22:26 IMPRESSION: Poor bolus, inadequate to evaluate the pulmonary arteries. Otherwise negative study. Qualifiers PATEINT BEING DISCHARGED WITH ANY OF THE FOLLOWING DIAGNOSIS?: No Plan Time Spent: Less than 30 Minutes
== END 2016-05-19 14:15 | disposition home or self-care (01) | DRG 202 ==
LOC: ER 20:03 → EH 05-17 05:45 → UNDOADMIN 05-17 06:07 → 3W 05-17 10:41 → 4W 05-19 03:00
PROVIDERS: ADMIT Internal Medicine; ATTEND Internal Medicine
PROC: 3E0F73Z Introduction of Anti-inflammatory into Respiratory Tract, Via Natural or Artificial Opening (ICD-10-PCS; principal; 2016-05-17)
PROC: 3E0234Z Introduction of Serum, Toxoid and Vaccine into Muscle, Percutaneous Approach (ICD-10-PCS; 2016-05-19)
DX: J45.901 Unspecified asthma with (acute) exacerbation (principal); J96.21 Acute and chronic respiratory failure with hypoxia; I50.30 Unspecified diastolic (congestive) heart failure; Z68.41 Body mass index [BMI] 40.0-44.9, adult; I11.0 Hypertensive heart disease with heart failure; K21.9 Gastro-esophageal reflux disease without esophagitis; E11.65 Type 2 diabetes mellitus with hyperglycemia; E66.01 Morbid (severe) obesity due to excess calories; F17.210 Nicotine dependence, cigarettes, uncomplicated; G47.33 Obstructive sleep apnea (adult) (pediatric); E78.5 Hyperlipidemia, unspecified; B37.3 Candidiasis of vulva and vagina; F31.9 Bipolar disorder, unspecified; F41.9 Anxiety disorder, unspecified; Z79.52 Long term (current) use of systemic steroids; Z23 Encounter for immunization; Z79.899 Other long term (current) drug therapy; Z90.49 Acquired absence of other specified parts of digestive tract; Z88.0 Allergy status to penicillin; Z91.030 Bee allergy status; Z82.49 Family history of ischemic heart disease and other diseases of the circulatory system
CPT/HCPCS: 36415; 36600; 71020; 71275; 74177; 80048; 80053; 80307; 81001; 82803; 82962; 83605; 83690; 84703; 85025; 85610; 87040; 87086; 87088; 87186; 90471; 90686; 93005; 93010; 94640; 94667; 94668; 94762; 94799; 96365; 96375; 99285; G0008; J1644; J1815; J1956; J2405; J2930; J3490; J7030; J7512; J7620; S0119

== ENCOUNTER 2016-07-28 14:00 | Emergency (ER) | payer OTHER ==
[2016-07-28] MEDS ORDERED: OXYCODONE-ACETAMINOPHEN 5-325 MG TABLET ONE (20:30)
[2016-07-28] MEDS ORDERED: CEPHALEXIN 500 MG CAPSULE ONE (20:30)
--- NOTE | 2016-08-04 08:14 | ER Document Report ---
ED Skin Rash/Insect Bite/Abscs - General Chief Complaint: Boil Time Seen by Provider: 08/04/16 07:42 Notes: Patient is a 35-year-old female presents emergency department complaining of left inner thigh pain for less than 1 week. Patient states that she is a small area that hurts to touch. She describes it as a pulsating, throbbing pain. Denies any fevers or chills. Past medical history significant for uncontrolled diabetes. Does not have a primary care physician. TRAVEL OUTSIDE OF THE [place] IN LAST 30 DAYS: No - Related Data Allergies/Adverse Reactions: amoxicillin [Amoxicillin] Allergy (Verified 08/01/16 17:24) Penicillins Allergy (Verified 08/01/16 17:24) Bees/Wasp Allergy (Uncoded 08/01/16 17:24) Past Medical History - Social History Smoking Status: Smoker,Current Status Unk Family History: Hypertension - Past Medical History Cardiac Medical History: Reports: Hx Hypercholesterolemia, Hx Hypertension Pulmonary Medical History: Reports: Hx Asthma, Hx Pneumonia Neurological Medical History: Denies: Hx Seizures Endocrine Medical History: Reports: Hx Diabetes Mellitus Type 2. Denies: Hx Diabetes Mellitus Type 1 Renal/ Medical History: Reports: Hx Kidney Stones. Denies: Hx Peritoneal Dialysis GI Medical History: Denies: Hx Cirrhosis, Hx Crohn's Disease, Hx Hepatitis Psychiatric Medical History: Reports: Hx Anxiety, Hx Bipolar Disorder, Hx Depression Infectious Medical History: Denies: Hx Hepatitis Past Surgical History: Reports: Hx Cholecystectomy, Hx Herniorrhaphy, Hx Umbilical Hernia - Immunizations Immunizations up to date: No Hx Diphtheria, Pertussis, Tetanus Vaccination: Yes Hx Pneumococcal Vaccination: 07/28/15 Review of Systems - Review of Systems Constitutional: No symptoms reported Skin: See HPI -: Yes All other systems reviewed and negative Physical Exam - Notes Notes: PHYSICAL EXAM GENERAL: Alert, interacts well. LUNGS: Clear to auscultation bilaterally, no wheezes, rales, or rhonchi. No respiratory distress. HEART: Regular rate and rhythm. No murmurs, gallops, or rubs. EXTREMITIES: Moves all 4 extremities spontaneously. No edema, radial and dorsalis pedis pulses 2/4 bilaterally. No cyanosis. NEUROLOGICAL: Alert and oriented x4. Normal speech. PSYCH: Normal affect, normal mood. - Skin Skin Temperature: Warm Skin Moisture: Dry Skin Color: Normal Skin Turgor: Elastic Skin irregularity: Abscess - [id number], Erythema, Tender indurated area Location of irregularity: Extremities - left proximal medial thigh Irregularity with: Tenderness, Induration Course - Re-evaluation Re-evalutation: 08/04/16 07:44 Patient is a 35-year-old female who is hemodynamic stable, no acute distress and afebrile. Patient with a 2 cm x 2 cm abscess in the left medial proximal thigh. I&D performed for about 5-10 cc of purulent fluid sent for wound culture. Patient sent home on Keflex with instructions to keep the area clean and dry. Strict return precautions. Patient expresses understanding Procedures - Incision and Drainage Left Thigh Type: Simple Anesthetic type: 1% Lidocaine mL's of anesthetic: 5 Blade size: 11 I&D procedure: Betadine prep applied, Sterile dressing applied Incision Method: Incision made by scalpel Amount/type of drainage: 10cc purulent fluid Female anatomy: 1 - abscess Discharge - Discharge Clinical Impression: Abscess Condition: Good Disposition: HOME, SELF-CARE
== END 2016-07-28 21:45 | disposition home or self-care (01) ==
LOC: ER 14:00
PROC: 0H9JXZZ Drainage of Left Upper Leg Skin, External Approach (ICD-10-PCS; principal; 2016-07-28)
DX: L02.416 Cutaneous abscess of left lower limb (principal); F17.200 Nicotine dependence, unspecified, uncomplicated; E78.00 Pure hypercholesterolemia, unspecified; I10 Essential (primary) hypertension; E11.9 Type 2 diabetes mellitus without complications; Z87.442 Personal history of urinary calculi; Z88.0 Allergy status to penicillin; Z91.030 Bee allergy status
CPT/HCPCS: 87070; 87075; 87077; 87205; 99283

== ENCOUNTER 2016-08-01 16:32 | Emergency (ER) | payer OTHER ==
--- NOTE | 2016-08-01 19:24 | ER Document Report ---
ED Medical Screen (RME) - General Chief Complaint: Wound Recheck Stated Complaint: POSSIBLE ABCESS Time Seen by Provider: 08/01/16 18:39 Notes: Patient is a 35-year-old female presents emergency department complaining of worsening pain, drainage and size of her abscess that was drained on July 28. Patient was seen here initially for an abscess measuring about 2 cm per 2 cm. Was drained at the bedside and sent home on Keflex. Today she states that it is increased in size, still draining. States that she has been taking the antibiotic as prescribed but she states that it has been making her throat itchy. I have greeted and performed a rapid initial assessment of this patient. A comprehensive ED assessment and evaluation of the patient, analysis of test results and completion of the medical decision making process will be conducted by additional ED providers. TRAVEL OUTSIDE OF THE [place] IN LAST 30 DAYS: No - Related Data Allergies/Adverse Reactions: amoxicillin [Amoxicillin] Allergy (Verified 08/01/16 17:24) Penicillins Allergy (Verified 08/01/16 17:24) Bees/Wasp Allergy (Uncoded 08/01/16 17:24) Past Medical History - Social History Family history: CAD, DM, Hypertension, Malignancy - Past Medical History Cardiac Medical History: Reports: Hx Hypercholesterolemia, Hx Hypertension Pulmonary Medical History: Reports: Hx Asthma, Hx Pneumonia Neurological Medical History: Denies: Hx Seizures Endocrine Medical History: Reports: Hx Diabetes Mellitus Type 2. Denies: Hx Diabetes Mellitus Type 1 Renal/ Medical History: Reports: Hx Kidney Stones. Denies: Hx Peritoneal Dialysis GI Medical History: Denies: Hx Cirrhosis, Hx Crohn's Disease, Hx Hepatitis Psychiatric Medical History: Reports: Hx Anxiety, Hx Bipolar Disorder, Hx Depression Infectious Medical History: Denies: Hx Hepatitis Past Surgical History: Reports: Hx Cholecystectomy, Hx Herniorrhaphy, Hx Umbilical Hernia - Immunizations Immunizations up to date: No Hx Diphtheria, Pertussis, Tetanus Vaccination: Yes Physical Exam - Vital signs Vitals: Temp Pulse Resp BP Pulse Ox 98.4 F 100 18 162/95 H 96 08/01/16 17:23 08/01/16 17:23 08/01/16 17:23 08/01/16 17:23 08/01/16 17:23 - Skin Skin Temperature: Warm Skin Moisture: Moist Skin irregularity: Abscess - 6x6cm, Tender indurated area Irregularity with: Swelling, Tenderness, Warmth, Induration, Weeping Course - Vital Signs Vital signs: Temp Pulse Resp BP Pulse Ox 98.4 F 100 18 162/95 H 96 08/01/16 17:23 08/01/16 17:23 08/01/16 17:23 08/01/16 17:23 08/01/16 17:23
[2016-08-01 19:34] LABS: ABSOLUTE BASOPHILS # (AUTO) 0.1 10^3/uL (0.0-0.2); ABSOLUTE EOSINOPHILS # (AUTO) 0.2 10^3/uL (0.0-0.6); ABSOLUTE LYMPHOCYTES (AUTO) 2.7 10^3/uL (0.5-4.7); ABSOLUTE MONOCYTES (AUTO) 0.8 10^3/uL (0.1-1.4); ABSOLUTE NEUT (AUTO) 10.1 10^3/uL (1.7-8.2); BASOPHILS % (AUTO) 0.5 % (0-2); EOSINOPHILS % (AUTO) 1.3 % (0-6); HEMATOCRIT 37.9 % (36.0-47.0); HEMOGLOBIN 12.3 g/dL (12.0-15.5); LYMPHOCYTES % (AUTO) 19.8 % (13-45); MEAN CORPUSCULAR HEMOGLOBIN 24.8 pg (27.0-33.4); MEAN CORPUSCULAR HGB CONC 32.6 g/dL (32.0-36.0); MEAN CORPUSCULAR VOLUME 76 fl (80-97); MONOCYTES % (AUTO) 5.8 % (3-13); RED BLOOD COUNT 4.97 10^6/uL (3.72-5.28); RED CELL DISTRIBUTION WIDTH 16.4 % (11.5-14.0); SEGMENTED NEUTROPHILS % (AUTO) 72.6 % (42-78); WHITE BLOOD COUNT 13.9 10^3/uL (4.0-10.5)
[2016-08-01] MEDS ORDERED: MORPHINE SULFATE 10 MG/ML INJ IV ONE ×2 (19:40→23:11)
[2016-08-01] MEDS ORDERED: ONDANSETRON HCL INJ/PF 4 MG/2 ML SDV IV ONE (19:41)
--- NOTE | 2016-08-01 19:44 | ER Document Report ---
ED Skin Rash/Insect Bite/Abscs - General Chief Complaint: Wound Recheck Stated Complaint: POSSIBLE ABCESS Time Seen by Provider: 08/01/16 18:39 Notes: Patient is a 35-year-old female comes emergency department for chief complaint of an area in her left inner thigh where she had an has increased in size and the area has become more swollen and tender. The area is still draining. She denies fever or chills. She has type 2 diabetes, oral medications and insulin. She has had abscesses in the past. She denies any other symptoms today. TRAVEL OUTSIDE OF THE [place] IN LAST 30 DAYS: No - Related Data Allergies/Adverse Reactions: amoxicillin [Amoxicillin] Allergy (Verified 08/01/16 17:24) Penicillins Allergy (Verified 08/01/16 17:24) Bees/Wasp Allergy (Uncoded 08/01/16 17:24) Past Medical History - General Information source: Patient - Social History Smoking Status: Never Smoker Chew tobacco use (# tins/day): No Frequency of alcohol use: None Drug Abuse: None Lives with: Family Family History: Hypertension - Past Medical History Cardiac Medical History: Reports: Hx Hypercholesterolemia, Hx Hypertension Pulmonary Medical History: Reports: Hx Asthma, Hx Pneumonia Neurological Medical History: Denies: Hx Seizures Endocrine Medical History: Reports: Hx Diabetes Mellitus Type 2. Denies: Hx Diabetes Mellitus Type 1 Renal/ Medical History: Reports: Hx Kidney Stones. Denies: Hx Peritoneal Dialysis GI Medical History: Denies: Hx Cirrhosis, Hx Crohn's Disease, Hx Hepatitis Psychiatric Medical History: Reports: Hx Anxiety, Hx Bipolar Disorder, Hx Depression Infectious Medical History: Denies: Hx Hepatitis Past Surgical History: Reports: Hx Cholecystectomy, Hx Herniorrhaphy, Hx Umbilical Hernia - Immunizations Immunizations up to date: No Hx Diphtheria, Pertussis, Tetanus Vaccination: Yes Hx Pneumococcal Vaccination: 07/28/15 Review of Systems - Review of Systems Constitutional: No symptoms reported EENT: No symptoms reported Cardiovascular: No symptoms reported Respiratory: No symptoms reported Gastrointestinal: No symptoms reported Genitourinary: No symptoms reported Female Genitourinary: No symptoms reported Musculoskeletal: No symptoms reported Skin: See HPI Hematologic/Lymphatic: No symptoms reported Neurological/Psychological: No symptoms reported Physical Exam - Vital signs Vitals: Temp Pulse Resp BP Pulse Ox 98.4 F 100 18 162/95 H 96 08/01/16 17:23 08/01/16 17:23 08/01/16 17:23 08/01/16 17:23 08/01/16 17:23 Interpretation: Normal - General General appearance: Appears well In distress: None - HEENT Head: Normocephalic, Atraumatic Eyes: Normal Pupils: PERRL - Respiratory Respiratory status: No respiratory distress Chest status: Nontender Breath sounds: Normal. No: Decreased air movement, Wheezing Chest palpation: Normal - Cardiovascular Rhythm: Regular Heart sounds: Normal auscultation, S1 appreciated, S2 appreciated Murmur: No - Abdominal Inspection: Normal Distension: No distension Bowel sounds: Normal Tenderness: Nontender Organomegaly: No organomegaly - Back Back: Normal, Nontender - Extremities General upper extremity: Normal inspection, Nontender, Normal color, Normal ROM , Normal temperature General lower extremity: Normal inspection, Nontender, Normal color, Normal ROM , Normal temperature, Normal weight bearing. No: Shawn's sign - Neurological Neuro grossly intact: Yes Cognition: Normal Orientation: AAOx4 Cassandra Coma Scale Eye Opening: Spontaneous Cassandra Coma Scale Verbal: Oriented [place] Coma Scale Motor: Obeys Commands Cassandra Coma Scale Total: 15 Speech: Normal Motor strength normal: LUE, RUE, LLE, RLE Sensory: Normal - Psychological Associated symptoms: Normal affect, Normal mood - Skin Skin Temperature: Warm Skin Moisture: Dry Skin Color: Normal Location of irregularity: Other - left proximal medial thigh with draining abscess on exam, surrounding induration and erythema, no streaking away from the site, does not extend to the genitals, does not extend to the anus, no surrounding lymphadenopathy. Normal LE otherwise. Normal distal N/V exam. Course - Re-evaluation Re-evalutation: Patient is afebrile, she does have some leukocytosis, no bandemia, no tachycardia. Patient had a draining abscess on exam, surrounding induration and erythema, no streaking away from the site, does not extend to the genitals, does not extend to the anus, no surrounding lymphadenopathy. Patient is a diabetic. Patient states she is taking her medications, blood glucose 200, bicarbonate and anion gap are normal. I did review the CAT scan performed in triage, shows no deeper abscess, shows superficial inflamed area and air from the open abscess which is currently draining. I did perform incision and drainage, increased the size of the opening, Placed packing, placed dressing, patient placed on double coverage Bactrim and doxycycline, patient instructed to follow-up in 2 days for a reevaluation. Discussed return precautions if symptoms worsen sooner. Patient states understanding and agreement. Patient was discussed with Dr. Byrd. - Vital Signs Vital signs: Temp Pulse Resp BP Pulse Ox 98.4 F 91 16 157/96 H 96 08/01/16 17:23 08/01/16 23:34 08/01/16 23:34 08/01/16 23:34 08/01/16 23:34 - Laboratory Result Diagrams: 08/01/16 19:17 08/01/16 19:17 Laboratory results interpreted by me: 08/01/16 08/01/16 19:17 19:17 WBC 13.9 H MCV 76 L MCH 24.8 L RDW 16.4 H Absolute Neutrophils 10.1 H Glucose 201 H Procedures - Incision and Drainage left medial proximal thigh Type: Single Anesthetic type: 1% Lidocaine w/epi mL's of anesthetic: 6 Blade size: 11 I&D procedure: Iodoform packing placed, Sterile dressing applied, Other - surgical cleanser Incision Method: Incision made by scalpel Notes: NAMRATA Taylor present during procedure. Surgical cleanser used to clean the area, anesthesia provided with lidocaine 1% with epinephrine, incision made over the draining area, irrigated with saline, purulent and bloody drainage expressed, irrigated again, explored, packing placed with iodoform, dressed. Discharge - Discharge Clinical Impression: Abscess Condition: Stable Disposition: HOME, SELF-CARE Additional Instructions: Keep the packing in for 2 days, after this either follow-up/return for a recheck or remove the packing. I recommend a recheck. Take the antibiotics as prescribed, take pain medication if needed. Keep the area clean, clean gently with soap and water, change dressing a couple of times a day, avoid soaking. Return immediately for any worsening symptoms including spreading redness, fever , or any other concerning symptoms. Prescriptions: Doxycycline Hyclate 100 mg PO BID #14 capsule Oxycodone HCl/Acetaminophen [Percocet 5-325 mg Tablet] 1 - 2 tab PO Q4H PRN #15 tablet PRN Reason: Sulfamethoxazole/Trimethoprim [Bactrim Ds Tablet] 1 each PO BID #14 tablet Forms: Elevated Blood Pressure
[2016-08-01 19:45] LABS: ANION GAP 11 (5-19); BLOOD UREA NITROGEN 18 mg/dL (7-20); CALCIUM 8.7 mg/dL (8.4-10.2); CARBON DIOXIDE 26 mmol/L (22-30); CHLORIDE 101 mmol/L (98-107); CREATININE RESULT 0.89 mg/dL (0.52-1.25); GLUCOSE 201 mg/dL (75-110); POTASSIUM 4.1 mmol/L (3.6-5.0); SODIUM 137.8 mmol/L (137-145)
[2016-08-01] MEDS ORDERED: LIDOCAINE 1%/EPINEPHRINE INJ 20 ML VIAL INJ ONE (21:24)
[2016-08-01] MEDS ORDERED: CLINDAMYCIN 600 MG/D5W RTU 50 ML IV SCH (22:00)
[2016-08-01] MEDS ORDERED: DOXYCYCLINE HYCLATE 100 MG TABLET PO ONE (23:10)
[2016-08-01] MEDS ORDERED: SULFAMETHOXAZOLE/TRIMETHOPRIM 800-160 MG TABLET PO ONE (23:11)
[2016-08-01 23:35] VITALS: BP 157/96
== END 2016-08-01 23:34 | disposition home or self-care (01) ==
LOC: ER 16:32
PROC: 0H9JXZZ Drainage of Left Upper Leg Skin, External Approach (ICD-10-PCS; principal; 2016-08-01)
DX: L02.416 Cutaneous abscess of left lower limb (principal)
CPT/HCPCS: 96376; 99284; 96375; 96365; 36415; 87040; 84703; 85025; 87077; 80048; 87186; 72193; 10060; J3490; J2270; J2405; A6266

== ENCOUNTER 2016-08-03 22:58 | Emergency (ER) | payer OTHER ==
[2016-08-03] MEDS ORDERED: ASPIRIN 81 MG TABLET, CHEWABLE PO ONE (23:48)
[2016-08-04 00:09] LABS: ABSOLUTE BASOPHILS # (AUTO) 0.1 10^3/uL (0.0-0.2); ABSOLUTE EOSINOPHILS # (AUTO) 0.3 10^3/uL (0.0-0.6); ABSOLUTE LYMPHOCYTES (AUTO) 2.8 10^3/uL (0.5-4.7); ABSOLUTE MONOCYTES (AUTO) 0.7 10^3/uL (0.1-1.4); ABSOLUTE NEUT (AUTO) 10.2 10^3/uL (1.7-8.2); BASOPHILS % (AUTO) 0.7 % (0-2); EOSINOPHILS % (AUTO) 1.9 % (0-6); HEMATOCRIT 38.7 % (36.0-47.0); HEMOGLOBIN 12.4 g/dL (12.0-15.5); HGB HCT DIFFERENCE -1.5; LYMPHOCYTES % (AUTO) 20.3 % (13-45); MEAN CORPUSCULAR HEMOGLOBIN 24.3 pg (27.0-33.4); MEAN CORPUSCULAR HGB CONC 31.9 g/dL (32.0-36.0); MEAN CORPUSCULAR VOLUME 76 fl (80-97); MONOCYTES % (AUTO) 4.8 % (3-13); RED BLOOD COUNT 5.08 10^6/uL (3.72-5.28); SEGMENTED NEUTROPHILS % (AUTO) 72.3 % (42-78); WHITE BLOOD COUNT 14.1 10^3/uL (4.0-10.5)
[2016-08-04 00:38] LABS: ALANINE AMINOTRANSFERASE 27 U/L (9-52); ALBUMIN 3.8 g/dL (3.5-5.0); ALKALINE PHOSPHATASE 73 U/L (38-126); ANION GAP 13 (5-19); ASPARTATE AMINO TRANSFERASE 21 U/L (14-36); BILIRUBIN,DIRECT 0.4 mg/dL (0.0-0.4); BILIRUBIN,TOTAL 0.4 mg/dL (0.2-1.3); BLOOD UREA NITROGEN 10 mg/dL (7-20); CALCIUM 9.1 mg/dL (8.4-10.2); CARBON DIOXIDE 23 mmol/L (22-30); CHLORIDE 102 mmol/L (98-107); CREATINE KINASE 116 U/L (30-135); CREATININE RESULT 0.65 mg/dL (0.52-1.25); GLUCOSE 300 mg/dL (75-110); POTASSIUM 4.7 mmol/L (3.6-5.0); SODIUM 137.6 mmol/L (137-145); TOTAL PROTEIN 6.4 g/dL (6.3-8.2)
--- NOTE | 2016-08-04 00:47 | RADIOLOGY REPORT (SQ) ---
EXAM DESCRIPTION: CHEST SINGLE VIEW COMPLETED DATE/TIME: 08/04/2016 12:20 am REASON FOR STUDY: Chest pain COMPARISON: 3.5.17 EXAM PARAMETERS: NUMBER OF VIEWS: One view. TECHNIQUE: Single frontal radiographic view of the chest acquired. RADIATION DOSE: NA LIMITATIONS: None. FINDINGS: LUNGS AND PLEURA: No opacities, masses or pneumothorax. No pleural effusion. MEDIASTINUM AND HILAR STRUCTURES: No masses. Contour normal. HEART AND VASCULAR STRUCTURES: Heart normal in size. Normal vasculature. BONES: No acute findings. HARDWARE: None in the chest. OTHER: No other significant finding. IMPRESSION: NO ACUTE RADIOGRAPHIC FINDING IN THE CHEST. TECHNICAL DOCUMENTATION: JOB ID: [id number]
[2016-08-04] MEDS ORDERED: IPRATROPIUM/ALBUTEROL 0.5-2.5 MG/3 ML AMPUL NEB ONE (00:49)
[2016-08-04 00:50] LABS: CREATINE KINASE MB 1.08 ng/mL (<4.55)
[2016-08-04 00:52] LABS: TROPONIN I 0.055 ng/mL
--- NOTE | 2016-08-04 01:43 | ER Document Report ---
ED General - General Chief Complaint: Shortness Of Breath Stated Complaint: CHEST PAIN Time Seen by Provider: 08/04/16 00:31 Notes: Patient is a 35-year-old female that comes emergency department for chief complaint of abscess recheck, she has a known abscess over her left medial thigh , she had this packed 2 days ago, she states the area has significantly improved and is less painful from previously. She denies fever or chills. She is diabetic. She is taking her medication. Patient also states that she had an episode where she felt short of breath, she had tightness in her chest, and she had wheezing. Improved with albuterol. Has seasonal allergies. Symptoms almost completely resolved. Denies smoking, cardiac hx, family history of [place]. TRAVEL OUTSIDE OF THE [place] IN LAST 30 DAYS: No - Related Data Allergies/Adverse Reactions: amoxicillin [Amoxicillin] Allergy (Verified 08/01/16 17:24) Penicillins Allergy (Verified 08/01/16 17:24) Bees/Wasp Allergy (Uncoded 08/01/16 17:24) Past Medical History - General Information source: Patient - Social History Smoking Status: Never Smoker Chew tobacco use (# tins/day): No Frequency of alcohol use: None Drug Abuse: None Lives with: Family Family History: Hypertension - Past Medical History Cardiac Medical History: Reports: Hx Hypercholesterolemia, Hx Hypertension Pulmonary Medical History: Reports: Hx Asthma, Hx Pneumonia Neurological Medical History: Denies: Hx Seizures Endocrine Medical History: Reports: Hx Diabetes Mellitus Type 2. Denies: Hx Diabetes Mellitus Type 1 Renal/ Medical History: Reports: Hx Kidney Stones. Denies: Hx Peritoneal Dialysis GI Medical History: Denies: Hx Cirrhosis, Hx Crohn's Disease, Hx Hepatitis Psychiatric Medical History: Reports: Hx Anxiety, Hx Bipolar Disorder, Hx Depression Infectious Medical History: Denies: Hx Hepatitis Past Surgical History: Reports: Hx Cholecystectomy, Hx Herniorrhaphy, Hx Umbilical Hernia - Immunizations Immunizations up to date: No Hx Diphtheria, Pertussis, Tetanus Vaccination: Yes Hx Pneumococcal Vaccination: 07/28/15 Review of Systems - Review of Systems Constitutional: No symptoms reported EENT: No symptoms reported Cardiovascular: See HPI Respiratory: See HPI Gastrointestinal: No symptoms reported Genitourinary: No symptoms reported Female Genitourinary: No symptoms reported Musculoskeletal: No symptoms reported Skin: See HPI Hematologic/Lymphatic: No symptoms reported Neurological/Psychological: No symptoms reported Physical Exam - Vital signs Interpretation: Normal - General General appearance: Appears well, Alert In distress: None - HEENT Head: Normocephalic, Atraumatic Eyes: Normal Pupils: PERRL - Respiratory Respiratory status: No respiratory distress Chest status: Nontender Breath sounds: Other - Minimal wheezing noted at the end of expiration, otherwise unremarkable with no tachypnea, labored breathing, or other abnormalities Chest palpation: Normal - Cardiovascular Rhythm: Regular Heart sounds: Normal auscultation Murmur: No - Abdominal Inspection: Normal Distension: No distension Bowel sounds: Normal Tenderness: Nontender Organomegaly: No organomegaly - Back Back: Normal, Nontender - Extremities General upper extremity: Normal inspection, Nontender, Normal color, Normal ROM , Normal temperature General lower extremity: Normal inspection, Nontender, Normal color, Normal ROM , Normal temperature, Normal weight bearing. No: Shawn's sign - Neurological Neuro grossly intact: Yes Cognition: Normal Orientation: AAOx4 Cassandra Coma Scale Eye Opening: Spontaneous Cassandra Coma Scale Verbal: Oriented [place] Coma Scale Motor: Obeys Commands Cassandra Coma Scale Total: 15 Speech: Normal Motor strength normal: LUE, RUE, LLE, RLE Sensory: Normal - Psychological Associated symptoms: Normal affect, Normal mood - Skin Skin Temperature: Warm Skin Moisture: Dry Skin Color: Normal Skin irregularity: Abscess - Healing abscess noted with packing in place over the left medial thigh, packing easily removed, no purulent drainage, no noted bleeding, very small area remaining in the abscess, induration significantly reduced, no significant erythema, area is not significantly tender. No local lymphadenopathy noted. Course - Re-evaluation Re-evalutation: Very faint wheeze on initial exam, resolved with one treatment. No tachypnea, hypoxia, or labored breathing. Chest x-ray unremarkable. Troponin has indeterminate range which is comparable to prior, repeat troponin obtained because of this. Unremarkable workup. Abscess significantly improved with reduction in size, resolution of erythema, significantly less tender. No purulent drainage noted. Packing removed. Patient taking Bactrim, states she was not taking doxycycline and did not fill it, recommended she take both the Keflex and the Bactrim, discussed continued care, there is not a deep enough space for additional packing to be placed, discussed close primary care follow-up, return precautions, patient states she is ready to go home and understanding of plan. - Laboratory Result Diagrams: 05/23/17 23:59 08/03/16 23:59 Laboratory results interpreted by me: 08/03/16 08/03/16 23:59 23:59 WBC 14.1 H MCV 76 L MCH 24.3 L MCHC 31.9 L RDW 16.0 H Absolute Neutrophils 10.2 H Glucose 300 H Discharge - Discharge Clinical Impression: Shortness of breath, Abscess re-check, Wheezing Condition: Stable Disposition: HOME, SELF-CARE Additional Instructions: Your workup shows no acute abnormalities. Keep an absorbing dressing over the abscess area, clean with soap and water, avoid soaking, take both the Bactrim and the Keflex antibiotics to completion. Continue antiallergy medications, continue asthma treatment as needed. Return immediately for any concerning or worsening symptoms including spreading redness, fever, etc.
--- NOTE | 2016-08-04 07:52 | EKG REPORT ---
SEVERITY:- ABNORMAL ECG - SINUS RHYTHM ABNORMAL Q SUGGESTS ANTERIOR INFARCT BORDERLINE T WAVE ABNORMALITIES : Confirmed by: Eder John MD 04-Aug-2016 07:51:15
== END 2016-08-04 04:21 | disposition home or self-care (01) ==
LOC: ER 22:58
DX: Z48.01 Encounter for change or removal of surgical wound dressing (principal); L02.416 Cutaneous abscess of left lower limb; J45.909 Unspecified asthma, uncomplicated; E11.9 Type 2 diabetes mellitus without complications; R06.02 Shortness of breath; R07.89 Other chest pain; I10 Essential (primary) hypertension; Z88.0 Allergy status to penicillin; Z91.030 Bee allergy status; Z91.038 Other insect allergy status; Z87.01 Personal history of pneumonia (recurrent); Z79.899 Other long term (current) drug therapy
CPT/HCPCS: 93005; 99285; 36415; 82553; 82550; 85025; 80053; 84484; 71010; 93010; J7620

== ENCOUNTER 2016-08-20 13:24 | Inpatient (IN) | payer OTHER ==
[2016-08-20] MEDS ORDERED: MAGNESIUM SULFATE/D5W 100 ML IV ONE (14:20)
[2016-08-20] MEDS ORDERED: IPRATROPIUM/ALBUTEROL 0.5-2.5 MG/3 ML AMPUL NEB ONE ×2 (14:20→16:14)
--- NOTE | 2016-08-20 14:26 | ER Document Report ---
ED General - General Chief Complaint: Asthma Exacerbation Stated Complaint: DIFFICULTY BREATHING Time Seen by Provider: 08/20/16 13:53 Mode of Arrival: Medic Information source: Patient, [facility] Records Notes: This is a 35-year-old -[place] female with a history of asthma and diabetes who presents with respiratory distress. She states that she has had an upper respiratory infection for the past week but she thought that this was improving until this morning when she awoke with a temperature of 102.1 at home. She states that her wheezing is worse today and she has had a nonproductive cough. No nausea or vomiting. EMS gave two A&A nebs as well as 125 mg of Solu-Medrol in route. TRAVEL OUTSIDE OF THE [place] IN LAST 30 DAYS: No - Related Data Allergies/Adverse Reactions: aspirin Allergy (Intermediate, Verified 08/20/16 19:19) amoxicillin [Amoxicillin] Allergy (Verified 08/20/16 19:19) Penicillins Allergy (Verified 08/20/16 19:19) Bees/Wasp Allergy (Uncoded 08/20/16 19:19) Past Medical History - Social History Smoking Status: Former Smoker Chew tobacco use (# tins/day): No Frequency of alcohol use: None Drug Abuse: None Family History: Hypertension - Past Medical History Cardiac Medical History: Reports: Hx Hypercholesterolemia, Hx Hypertension Pulmonary Medical History: Reports: Hx Asthma, Hx Pneumonia Neurological Medical History: Denies: Hx Seizures Endocrine Medical History: Reports: Hx Diabetes Mellitus Type 2. Denies: Hx Diabetes Mellitus Type 1 Renal/ Medical History: Reports: Hx Kidney Stones. Denies: Hx Peritoneal Dialysis GI Medical History: Denies: Hx Cirrhosis, Hx Crohn's Disease, Hx Hepatitis Psychiatric Medical History: Reports: Hx Anxiety, Hx Bipolar Disorder, Hx Depression Infectious Medical History: Denies: Hx Hepatitis Past Surgical History: Reports: Hx Cholecystectomy, Hx Herniorrhaphy, Hx Umbilical Hernia - Immunizations Immunizations up to date: No Hx Diphtheria, Pertussis, Tetanus Vaccination: Yes Hx Pneumococcal Vaccination: 07/28/15 Review of Systems - Review of Systems Constitutional: See HPI, Chills, Fever EENT: No symptoms reported. denies: Throat pain Cardiovascular: No symptoms reported. denies: Chest pain Respiratory: See HPI, Cough, Short of breath, Wheezing Gastrointestinal: No symptoms reported Genitourinary: No symptoms reported Female Genitourinary: No symptoms reported Musculoskeletal: No symptoms reported Skin: No symptoms reported Hematologic/Lymphatic: No symptoms reported Neurological/Psychological: No symptoms reported Physical Exam - Vital signs Vitals: Resp Pulse Ox 13 99 08/20/16 13:36 08/20/16 13:36 - Notes Notes: PHYSICAL EXAMINATION: GENERAL: Ill appearing obese female, alert and conversant with conversational dyspnes and in mild respiratory distress. HEAD: Atraumatic, normocephalic. EYES: Pupils equal round and reactive to light, extraocular movements intact, sclera anicteric, conjunctiva are normal. ENT: nares patent, oropharynx clear without exudates. Moist mucous membranes. NECK: Normal range of motion, supple without lymphadenopathy LUNGS: tachypneic, bilateral inspiratory and expiratory wheezes, no rhonchi HEART: tachycardic, Regular rate and rhythm without murmurs ABDOMEN: Soft, nontender, normoactive bowel sounds. No guarding, no rebound. No masses appreciated. EXTREMITIES: Normal range of motion NEUROLOGICAL: Cranial nerves grossly intact. Gross focal motor or sensory deficits appreciated. PSYCH: Normal mood, normal affect. SKIN: Warm, Dry, normal turgor, no rashes or lesions noted. Course - Re-evaluation Re-evalutation: 08/20/16 17:57 Patient has had some improvement after 3 neb treatments in the IV magnesium. However she still has conversational dyspnea and is mildly tachypneic. We discussed obvious admission tonight for continued neb treatments and patient is agreeable with this plan. Discussed with hospitalist Dr. Tomlinson. - Vital Signs Vital signs: Temp Pulse Resp BP Pulse Ox 32 H 176/92 H 100 08/20/16 19:00 08/20/16 18:50 08/20/16 19:44 - Laboratory Result Diagrams: 08/20/16 13:40 08/20/16 13:40 Laboratory results interpreted by me: 08/20/16 08/20/16 13:40 13:40 WBC 11.7 H MCV 75 L MCH 24.1 L RDW 16.2 H Glucose 230 H - Diagnostic Test Radiology reviewed: Reports reviewed - CXR: no obvious infiltrate Discharge - Discharge Clinical Impression: Asthma exacerbation, Accelerated hypertension Condition: Fair Disposition: ADMITTED INPATIENT Admitting Provider: Hospitalist - Dr. Tomlinson Unit Admitted: Telemetry
[2016-08-20 14:35] LABS: ABSOLUTE EOSINOPHILS # (AUTO) 0.2 10^3/uL (0.0-0.6); ABSOLUTE LYMPHOCYTES (AUTO) 3.6 10^3/uL (0.5-4.7); ABSOLUTE MONOCYTES (AUTO) 0.8 10^3/uL (0.1-1.4); ABSOLUTE NEUT (AUTO) 7.2 10^3/uL (1.7-8.2); BASOPHILS % (AUTO) 0.3 % (0-2); EOSINOPHILS % (AUTO) 1.7 % (0-6); HEMATOCRIT 39.1 % (36.0-47.0); HEMOGLOBIN 12.5 g/dL (12.0-15.5); HGB HCT DIFFERENCE -1.6; LYMPHOCYTES % (AUTO) 30.3 % (13-45); MEAN CORPUSCULAR HEMOGLOBIN 24.1 pg (27.0-33.4); MEAN CORPUSCULAR VOLUME 75 fl (80-97); MONOCYTES % (AUTO) 6.5 % (3-13); RED CELL DISTRIBUTION WIDTH 16.2 % (11.5-14.0); SEGMENTED NEUTROPHILS % (AUTO) 61.2 % (42-78); WHITE BLOOD COUNT 11.7 10^3/uL (4.0-10.5)
[2016-08-20] MEDS ORDERED: HYDRALAZINE HCL INJ/PF 20 MG/1 ML SDV IV ONE (14:44)
[2016-08-20 14:55] LABS: ALANINE AMINOTRANSFERASE 28 U/L (9-52); ALBUMIN 3.6 g/dL (3.5-5.0); ALKALINE PHOSPHATASE 65 U/L (38-126); ANION GAP 11 (5-19); ASPARTATE AMINO TRANSFERASE 22 U/L (14-36); BILIRUBIN,DIRECT 0.3 mg/dL (0.0-0.4); BILIRUBIN,TOTAL 0.5 mg/dL (0.2-1.3); BLOOD UREA NITROGEN 14 mg/dL (7-20); CALCIUM 8.9 mg/dL (8.4-10.2); CARBON DIOXIDE 24 mmol/L (22-30); CHLORIDE 103 mmol/L (98-107); CREATININE RESULT 0.74 mg/dL (0.52-1.25); GLUCOSE 230 mg/dL (75-110); POTASSIUM 4.3 mmol/L (3.6-5.0); SODIUM 137.7 mmol/L (137-145); TOTAL PROTEIN 6.5 g/dL (6.3-8.2)
--- NOTE | 2016-08-20 15:16 | RADIOLOGY REPORT (SQ) ---
EXAM DESCRIPTION: CHEST SINGLE VIEW COMPLETED DATE/TIME: 08/20/2016 2:42 pm REASON FOR STUDY: fever, cough, asthma, respiratory distress COMPARISON: 08/04/2016. EXAM PARAMETERS: NUMBER OF VIEWS: One view. TECHNIQUE: Single frontal radiographic view of the chest acquired. RADIATION DOSE: NA LIMITATIONS: None. FINDINGS: LUNGS AND PLEURA: No opacities, masses or pneumothorax. No pleural effusion. MEDIASTINUM AND HILAR STRUCTURES: No masses. Contour normal. HEART AND VASCULAR STRUCTURES: Heart normal in size. Normal vasculature. BONES: No acute findings. HARDWARE: None in the chest. OTHER: No other significant finding. IMPRESSION: NO ACUTE RADIOGRAPHIC FINDING IN THE CHEST. TECHNICAL DOCUMENTATION: JOB ID: [id number]
[2016-08-20] MEDS ORDERED: ALBUTEROL SULFATE 0.083% NEB 2.5 MG/3 ML AMPUL NEB ONE (16:14)
[2016-08-20] MEDS ORDERED: LEVOFLOXACIN 750 MG/D5W RTU 150 ML IV ONE (16:48)
[2016-08-20] MEDS ORDERED: NORMAL SALINE 1000 ML 1,000 ML IV PRN (18:28)
[2016-08-20] MEDS ORDERED: LEVALBUTEROL HCL NEB 1.25 MG/3 ML AMPUL NEB PRN (18:28)
[2016-08-20] MEDS ORDERED: ACETAMINOPHEN 325 MG TABLET PO PRN (18:28)
[2016-08-20] MEDS ORDERED: GLUCAGON,HUMAN RECOMB 1 MG INJ IM PRN (18:31)
[2016-08-20] MEDS ORDERED: DEXTROSE 40% GEL 15 GM TUBE PO PRN ×2 (18:31)
[2016-08-20] MEDS ORDERED: DEXTROSE 50%-WATER 25 GM/50 ML DISP.SYRIN IV PRN ×2 (18:31)
--- NOTE | 2016-08-20 18:54 | PDOC H&P ---
History of Present Illness Admission Date/PCP: 08/20/16 18:11 History of Present Illness: DAYTON MENDOZA is a 35 year old female with a past medical history of diabetes type 1.5, hypertension, diastolic heart failure, TAMEKA who presents to the ER with shortness of breath. Patient reports that she has been feeling ill since Tuesday and having a cough is productive of brown brown green sputum. She reports that she had thought that she was improving until this morning when she woke up with a fever which she reports to be 102.1 at home and chills. She does report some diarrhea but denies any hematochezia or melena. She does report congestion and significant wheezing. In the emergency department patient received 3 albuterol/Atrovent treatments, Solu-Medrol 125 mg IV, and 2 g of magnesium sulfate. Patient continues to have ongoing wheezing and tachypnea. Reports that her peak flow was in the red area. She is referred to hospital service for asthma exacerbation. Medication changes since she was here last. Patient's medication list is currently unavailable and being reconciled by pharmacy. Patient reports her medications include but are not limited to metformin, glipizide, Lantus 35 units at bedtime, Victoza, hydrochlorothiazide, lisinopril, metoprolol. Past Medical History Cardiac Medical History: Reports: Hyperlipidema, Hypertension Pulmonary Medical History: Reports: Asthma, Pneumonia Neurological Medical History: Denies: Seizures Endocrine Medical History: Reports: Diabetes Mellitus Type 2 Denies: Diabetes Mellitus Type 1 GI Medical History: Denies: Cirrhosis, Crohn's Disease, Hepatitis Psychiatric Medical History: Reports: Bipolar Disorder, Depression Past Surgical History Past Surgical History: Reports: Cholecystectomy, Herniorrhaphy Social History Smoking Status: Former Smoker Frequency of Alcohol Use: Occasional Hx Recreational Drug Use: No Drugs: None Hx Prescription Drug Abuse: No - Advance Directive Resuscitation Status: Full Code Family History Family History: Hypertension Parental Family History Reviewed: Yes Children Family History Reviewed: Yes Sibling(s) Family History Reviewed.: Yes Medication/Allergy Allergies/Adverse Reactions: amoxicillin [Amoxicillin] Allergy (Verified 08/01/16 17:24) Penicillins Allergy (Verified 08/01/16 17:24) Bees/Wasp Allergy (Uncoded 08/01/16 17:24) Review of Systems Constitutional: PRESENT: chills, fever(s), weight loss - intentional. ABSENT: headache(s), weight gain Eyes: ABSENT: visual disturbances Ears: ABSENT: hearing changes Nose, Mouth, and Throat: PRESENT: headache(s) Cardiovascular: ABSENT: chest pain, dyspnea on exertion, edema, orthropnea, palpitations Respiratory: PRESENT: cough, dyspnea, sputum. ABSENT: hemoptysis Gastrointestinal: PRESENT: diarrhea, nausea. ABSENT: abdominal pain, constipation, hematemesis, hematochezia, melena, vomiting Genitourinary: ABSENT: dysuria, hematuria Musculoskeletal: ABSENT: joint swelling Integumentary: ABSENT: rash, wounds Neurological: ABSENT: abnormal gait, abnormal speech, confusion, dizziness, focal weakness, syncope Psychiatric: ABSENT: anxiety, depression, homidical ideation, suicidal ideation Endocrine: ABSENT: cold intolerance, heat intolerance, polydipsia, polyuria Hematologic/Lymphatic: ABSENT: easy bleeding, easy bruising Allergic/Immunologic: PRESENT: seasonal rhinorrhea Physical Exam Vital Signs: Temp Pulse Resp BP Pulse Ox 98 08/20/16 15:27 General appearance: PRESENT: mild distress, obese, well-developed, well- nourished Head exam: PRESENT: atraumatic, normocephalic Eye exam: PRESENT: conjunctiva pink, EOMI, PERRLA. ABSENT: scleral icterus Ear exam: PRESENT: normal external ear exam Mouth exam: PRESENT: dry mucosa, tongue midline Neck exam: ABSENT: JVD, lymphadenopathy, thyromegaly, tracheal deviation Respiratory exam: PRESENT: prolonged expiratory phas, symmetrical, tachypnea, unlabored, wheezes. ABSENT: accessory muscle use, crackles, rales, retraction, rhonchi Cardiovascular exam: PRESENT: RRR, +S1, +S2. ABSENT: diastolic murmur, gallop, rubs, systolic murmur Pulses: PRESENT: normal dorsalis pedis pul Vascular exam: PRESENT: normal capillary refill GI/Abdominal exam: PRESENT: normal bowel sounds, soft. ABSENT: distended, firm , guarding, mass, organolmegaly, rebound, rigid, tenderness Rectal exam: PRESENT: deferred Extremities exam: PRESENT: full ROM. ABSENT: calf tenderness, clubbing, pedal edema Neurological exam: PRESENT: alert, awake, oriented to person, oriented to place , oriented to time, oriented to situation, CN II-XII grossly intact. ABSENT: motor sensory deficit Psychiatric exam: PRESENT: appropriate affect, normal mood. ABSENT: homicidal ideation, suicidal ideation Skin exam: PRESENT: dry, intact, warm. ABSENT: cyanosis, rash Results Impressions: Chest X-Ray 08/20/16 14:16 IMPRESSION: NO ACUTE RADIOGRAPHIC FINDING IN THE CHEST. Assessment & Plan - Diagnosis (1) Asthma exacerbation Is this a current diagnosis for this admission?: YesPlan: Patient's asthma exacerbation appears to be secondary to a viral URI, but concern is for early pneumonia in light of her reports of fever and purulent sputum. Plan to initiate patient on Levaquin, Solu-Medrol 125 mg IV every 6, and scheduled nebulized treatments. As well as as needed Xopenex. Will send sputum culture if able. Peak flow daily. Patient on telemetry and monitor. (2) Diastolic dysfunction Is this a current diagnosis for this admission?: YesPlan: History of chronic diastolic dysfunction. Judicious with fluid administration. (3) GERD (gastroesophageal reflux disease) Qualifiers: Esophagitis presence: without esophagitis Qualified Code(s): K21.9 - Gastro-esophageal reflux disease without esophagitis Is this a current diagnosis for this admission?: YesPlan: pepcid Twice daily (4) Diabetes mellitus type 2 in obese Is this a current diagnosis for this admission?: YesPlan: ADA diet Continue home medications and sliding scale insulin in light of steroid use (5) Hyperlipidemia Qualifiers: Hyperlipidemia type: unspecified Qualified Code(s): E78.5 - Hyperlipidemia, unspecified Is this a current diagnosis for this admission?: YesPlan: Continue home medications. (6) TAMEKA (obstructive sleep apnea) Is this a current diagnosis for this admission?: YesPlan: It may use her home CPAP for sleep. If not one will be provided for (7) Morbid obesity with BMI of 40.0-44.9, adult Is this a current diagnosis for this admission?: Yes (8) DVT prophylaxis Is this a current diagnosis for this admission?: Yes - Time Time Spent: 30 to 50 Minutes Medications reviewed and adjusted accordingly: Yes Anticipated discharge: Home Within: within 72 hours - Inpatient Certification Based on my medical assessment, after consideration of the patient's comorbidities, presenting symptoms, or acuity I expect that the services needed warrant INPATIENT care.: Yes I certify that my determination is in accordance with my understanding of Medicare's requirements for reasonable and necessary INPATIENT services [42 CFR 412.3e].: Yes Medical Necessity: Need for Nebulizer Therapy and Monitoring of Response Post Hospital Care: D/C [employer]ist Apprentice Documentation
[2016-08-20 18:59] LABS: APPEARANCE,URINE CLOUDY; BILIRUBIN,URINE NEGATIVE (NEGATIVE); GLUCOSE, URINE >=500 mg/dL (NEGATIVE); KETONES,URINE 20 mg/dL (NEGATIVE); LEUKOCYTE ESTERASE,URINE LARGE (NEGATIVE); NITRITE,URINE NEGATIVE (NEGATIVE); PROTEIN,URINE NEGATIVE (NEGATIVE); UROBILINOGEN,URINE NEGATIVE mg/dL (<2.0)
[2016-08-20] MEDS ORDERED: NORMAL SALINE 1000 ML 1,000 ML IV ONE (19:00)
[2016-08-20] MEDS ORDERED: METHYLPREDNISOLONE INJ 125 MG/2 ML SDV IV ONE (19:00)
[2016-08-20] MEDS ORDERED: ENOXAPARIN SODIUM INJ 40 MG/0.4 ML DISP.SYRIN SUBCUT ONE (19:30)
[2016-08-20] MEDS ORDERED: METFORMIN HCL 500 MG TABLET PO ONE (19:30)
[2016-08-20] MEDS ORDERED: GLIPIZIDE 10 MG TABLET PO ONE (19:30)
[2016-08-20] MEDS: IPRATROPIUM/ALBUTEROL 0.5-2.5 MG/3 ML AMPUL NEB SCH ×2 (20:46→23:47)
[2016-08-20] MEDS ORDERED: INSULIN GLARGINE,HUM.REC.ANLOG 300 UNIT/3 ML INSULN.PEN SUBCUT SCH (22:00)
[2016-08-20] MEDS ORDERED: INSULIN GLARGINE,HUM.REC.ANLOG 1,000 UNIT/10 ML UNIT SUBCUT SCH (22:00)
[2016-08-20] MEDS ORDERED: INSULIN REG, HUMAN 100 UNIT/ML 3 ML VIAL (PYX) IV ONE (22:30)
[2016-08-20] MEDS: FLUTICASONE NASAL SPRAY 50 MCG/SPRY 120 SPRAY/16 GM NASL SCH (22:52)
[2016-08-20] MEDS: METOPROLOL SUCCINATE 50 MG TAB.SR.24H PO SCH (22:52)
[2016-08-20] MEDS: INSULIN LISPRO 100 UNIT/ML 3 ML VIAL SUBCUT PRN (22:53)
[2016-08-20] MEDS: LORATADINE 10 MG TABLET PO SCH (22:54)
[2016-08-21] MEDS: METHYLPREDNISOLONE INJ 125 MG/2 ML SDV IV SCH ×5 (00:37→23:16)
--- NOTE | 2016-08-21 02:03 | RADIOLOGY REPORT (SQ) ---
EXAM DESCRIPTION: CHEST PA/LAT COMPLETED DATE/TIME: 08/21/2016 1:42 am REASON FOR STUDY: concern for pna COMPARISON: None. EXAM PARAMETERS: NUMBER OF VIEWS: two views TECHNIQUE: Digital Frontal and Lateral radiographic views of the chest acquired. RADIATION DOSE: NA LIMITATIONS: none FINDINGS: LUNGS AND PLEURA: Moderate-small lung volume. Pulmonary vascular congestion. MEDIASTINUM AND HILAR STRUCTURES: No masses or contour abnormalities. HEART AND VASCULAR STRUCTURES: Heart normal size. No evidence for failure. BONES: No acute findings. HARDWARE: Right upper abdominal clips. OTHER: No other significant finding. IMPRESSION: Moderate-small lung volumes. Pulmonary vascular congestion. TECHNICAL DOCUMENTATION: JOB ID: [id number] [employer]- All Rights Reserved
[2016-08-21] MEDS: IPRATROPIUM/ALBUTEROL 0.5-2.5 MG/3 ML AMPUL NEB SCH ×5 (03:50→19:49)
[2016-08-21 08:24] LABS: ABSOLUTE LYMPHOCYTES (AUTO) 1.6 10^3/uL (0.5-4.7); ABSOLUTE MONOCYTES (AUTO) 0.2 10^3/uL (0.1-1.4); ABSOLUTE NEUT (AUTO) 17.7 10^3/uL (1.7-8.2); BASOPHILS % (AUTO) 0.1 % (0-2); HEMATOCRIT 39.5 % (36.0-47.0); HEMOGLOBIN 12.6 g/dL (12.0-15.5); HGB HCT DIFFERENCE -1.7; LYMPHOCYTES % (AUTO) 8.2 % (13-45); MEAN CORPUSCULAR HEMOGLOBIN 24.3 pg (27.0-33.4); MEAN CORPUSCULAR HGB CONC 31.8 g/dL (32.0-36.0); MEAN CORPUSCULAR VOLUME 76 fl (80-97); MONOCYTES % (AUTO) 1.2 % (3-13); RED BLOOD COUNT 5.17 10^6/uL (3.72-5.28); RED CELL DISTRIBUTION WIDTH 16.5 % (11.5-14.0); SEGMENTED NEUTROPHILS % (AUTO) 90.5 % (42-78); WHITE BLOOD COUNT 19.6 10^3/uL (4.0-10.5)
[2016-08-21 08:53] LABS: ANION GAP 14 (5-19); BLOOD UREA NITROGEN 16 mg/dL (7-20); CALCIUM 9.7 mg/dL (8.4-10.2); CARBON DIOXIDE 21 mmol/L (22-30); CHLORIDE 102 mmol/L (98-107); CREATININE RESULT 0.73 mg/dL (0.52-1.25); GLUCOSE 338 mg/dL (75-110); POTASSIUM 4.2 mmol/L (3.6-5.0); SODIUM 137.2 mmol/L (137-145)
[2016-08-21] MEDS: METFORMIN HCL 500 MG TABLET PO SCH ×2 (08:55→17:11)
[2016-08-21] MEDS: ENOXAPARIN SODIUM INJ 40 MG/0.4 ML DISP.SYRIN SUBCUT SCH (08:55)
[2016-08-21] MEDS: GLIPIZIDE 10 MG TABLET PO SCH ×2 (08:55→17:11)
[2016-08-21] MEDS: INSULIN LISPRO 100 UNIT/ML 3 ML VIAL SUBCUT PRN ×4 (08:55→21:49)
[2016-08-21] MEDS ORDERED: FUROSEMIDE INJ/PF 20 MG/2 ML SDV IV ONE (09:00)
[2016-08-21] MEDS ORDERED: INSULIN GLARGINE,HUM.REC.ANLOG 1,000 UNIT/10 ML UNIT SUBCUT ONE (09:00)
[2016-08-21] MEDS: FLUTICASONE/SALMETEROL DISKUS 500-50 MCG/DOSE IH SCH ×2 (09:57→21:48)
[2016-08-21] MEDS: LISINOPRIL 10 MG TABLET PO SCH (09:58)
[2016-08-21] MEDS: METOPROLOL SUCCINATE 50 MG TAB.SR.24H PO SCH ×2 (09:59→21:48)
[2016-08-21] MEDS: LACTOBACILLUS ACIDOPHILUS 250 MG TAB PO SCH ×2 (09:59→17:19)
[2016-08-21] MEDS: FLUTICASONE NASAL SPRAY 50 MCG/SPRY 120 SPRAY/16 GM NASL SCH ×2 (09:59→21:48)
[2016-08-21] MEDS ORDERED: LIRAGLUTIDE 1.6 MG SQ SCH (10:00)
[2016-08-21] MEDS ORDERED: HYDROCHLOROTHIAZIDE 25 MG TABLET PO SCH (10:00)
--- NOTE | 2016-08-21 15:20 | PDOC PROGRESS REPORT ---
Subjective Progress Note for:: 08/21/16 Physical Exam Vital Signs: Temp Pulse Resp BP Pulse Ox 97.8 F 82 18 148/78 H 97 08/21/16 03:28 08/21/16 03:50 08/21/16 03:50 08/21/16 03:28 08/21/16 03:28 Intake & Output 08/20/16 08/21/16 08/22/16 06:59 06:59 06:59 Intake Total 2400 Output Total 1050 Balance 1350 Weight 142.2 kg Exam: GENERAL: No acute distress, morbidly obese HEENT: Conjunctiva clear, nonicteric, moist mucous membranes, no JVD, midline trachea RESPIRATORY: occasional end expiratory wheezing CARDIAC: Regular rate and rhythm, no murmurs/gallops/rubs, difficult to ascultate due to body habitus ABDOMEN: Soft, nondistended, nontender, positive bowel sounds, no rebound, no guarding EXTREMETIES: No cyanosis, clubbing, edema NEUROLOGIC: Alert, oriented to person/place/time, CN's grossly intact, no focal deficits SKIN: No rashes or lesions PSYCH: Normal mood and affect Results Laboratory Results: 08/20/16 18:40 Urine Color YELLOW Urine Appearance CLOUDY Urine pH 6.0 Ur Specific [place] 1.020 Urine Protein NEGATIVE Urine Glucose (UA) >=500 H Urine Ketones 20 H Urine Blood NEGATIVE Urine Nitrite NEGATIVE Ur Leukocyte Esterase LARGE H Urine WBC (Auto) 6 Urine RBC (Auto) 4 08/20/16 08/21/16 19:05 00:58 Troponin I 0.040 0.025 Impressions: Chest X-Ray 08/21/16 00:00 IMPRESSION: Moderate-small lung volumes. Pulmonary vascular congestion. Assessment & Plan - Diagnosis (1) Asthma exacerbation Is this a current diagnosis for this admission?: YesPlan: Patient's asthma exacerbation appears to be secondary to a viral URI, but concern is for early pneumonia in light of her reports of fever and purulent sputum. Repeat chest xray reveals pulmonary vascular congestion. Patient has not had any further fever nor has she been able to produce sputum. Stop Levaquin , decrease to Solu-Medrol 60 mg IV every 6, and scheduled nebulized treatments. As well as as needed Xopenex. Will send sputum culture if able. Peak flow daily. Patient on telemetry and monitor. (2) Diastolic dysfunction Is this a current diagnosis for this admission?: YesPlan: Patient with acute on chronic diastolic dysfunction. Continue lisinopril, metoprolol and start lasix. History of chronic diastolic dysfunction. Stop fluid administration. (3) GERD (gastroesophageal reflux disease) Qualifiers: Esophagitis presence: without esophagitis Qualified Code(s): K21.9 - Gastro-esophageal reflux disease without esophagitis Is this a current diagnosis for this admission?: YesPlan: PPI (4) Diabetes mellitus type 2 in obese Is this a current diagnosis for this admission?: YesPlan: ADA diet Continue home medications and sliding scale insulin in light of steroid use Increase night Lantus and give additional dose now (5) Hyperlipidemia Qualifiers: Hyperlipidemia type: unspecified Qualified Code(s): E78.5 - Hyperlipidemia, unspecified Is this a current diagnosis for this admission?: Yes (6) TAMEKA (obstructive sleep apnea) Is this a current diagnosis for this admission?: Yes (7) Morbid obesity with BMI of 40.0-44.9, adult Is this a current diagnosis for this admission?: Yes (8) DVT prophylaxis Is this a current diagnosis for this admission?: Yes - Time Time Spent with patient: 25-34 minutes Medications reviewed and adjusted accordingly: Yes Anticipated discharge: Home Within: within 48 hours
[2016-08-21] MEDS: INSULIN LISPRO 100 UNIT/ML 3 ML VIAL SUBCUT SCH (17:10)
[2016-08-21] MEDS ORDERED: LEVOFLOXACIN 750 MG TABLET PO SCH (18:00)
[2016-08-21] MEDS ORDERED: FUROSEMIDE INJ/PF 20 MG/2 ML SDV IV SCH (18:00)
[2016-08-21] MEDS ORDERED: METHYLPREDNISOLONE INJ 40 MG/1 ML SDV IV SCH (18:00)
[2016-08-21] MEDS: LORATADINE 10 MG TABLET PO SCH (21:48)
[2016-08-21] MEDS ORDERED: INSULIN GLARGINE,HUM.REC.ANLOG 300 UNIT/3 ML INSULN.PEN SUBCUT SCH (22:00)
[2016-08-22 05:22] LABS: HEMATOCRIT 35.9 % (36.0-47.0); HEMOGLOBIN 11.3 g/dL (12.0-15.5); MEAN CORPUSCULAR HEMOGLOBIN 24.2 pg (27.0-33.4); MEAN CORPUSCULAR HGB CONC 31.4 g/dL (32.0-36.0); MEAN CORPUSCULAR VOLUME 77 fl (80-97); RED BLOOD COUNT 4.65 10^6/uL (3.72-5.28); RED CELL DISTRIBUTION WIDTH 16.6 % (11.5-14.0); WHITE BLOOD COUNT 21.2 10^3/uL (4.0-10.5)
[2016-08-22] MEDS: METHYLPREDNISOLONE INJ 125 MG/2 ML SDV IV SCH (05:30)
[2016-08-22 05:42] LABS: ANION GAP 14 (5-19); BLOOD UREA NITROGEN 24 mg/dL (7-20); CALCIUM 9.5 mg/dL (8.4-10.2); CARBON DIOXIDE 19 mmol/L (22-30); CHLORIDE 104 mmol/L (98-107); CREATININE RESULT 0.86 mg/dL (0.52-1.25); GLUCOSE 381 mg/dL (75-110); POTASSIUM 4.4 mmol/L (3.6-5.0); SODIUM 137.1 mmol/L (137-145)
[2016-08-22 05:47] LABS: BAND NEUTROPHILS % (MANUAL) 4 % (3-5); BASOPHILS % (MANUAL) 0 % (0-2); EOSINOPHILS % (MANUAL) 0 % (0-6); LYMPHOCYTES % (MANUAL) 6 % (13-45); TOTAL CELLS COUNTED 100
[2016-08-22 05:49] LABS: POLYCHROMASIA SLIGHT
[2016-08-22 05:50] LABS: HYPOCHROMASIA 1+; OVALOCYTES SLIGHT; POIKILOCYTOSIS SLIGHT; TARGET CELLS SLIGHT
[2016-08-22 05:52] LABS: ANISOCYTOSIS 1+; MICROCYTOSIS SLIGHT
[2016-08-22] MEDS ORDERED: INSULIN GLARGINE,HUM.REC.ANLOG 1,000 UNIT/10 ML UNIT SUBCUT ONE (08:00)
[2016-08-22] MEDS: METFORMIN HCL 500 MG TABLET PO SCH ×2 (08:03→16:44)
[2016-08-22] MEDS: GLIPIZIDE 10 MG TABLET PO SCH ×2 (08:03→16:44)
[2016-08-22] MEDS: INSULIN LISPRO 100 UNIT/ML 3 ML VIAL SUBCUT SCH ×3 (08:03→16:43)
[2016-08-22] MEDS: INSULIN LISPRO 100 UNIT/ML 3 ML VIAL SUBCUT PRN ×4 (08:03→22:50)
[2016-08-22] MEDS: ENOXAPARIN SODIUM INJ 40 MG/0.4 ML DISP.SYRIN SUBCUT SCH (08:03)
[2016-08-22] MEDS: IPRATROPIUM/ALBUTEROL 0.5-2.5 MG/3 ML AMPUL NEB SCH ×4 (08:31→20:27)
[2016-08-22] MEDS: FLUTICASONE NASAL SPRAY 50 MCG/SPRY 120 SPRAY/16 GM NASL SCH ×2 (10:10→22:50)
[2016-08-22] MEDS: METOPROLOL SUCCINATE 50 MG TAB.SR.24H PO SCH ×2 (10:10→22:49)
[2016-08-22] MEDS: FLUTICASONE/SALMETEROL DISKUS 500-50 MCG/DOSE IH SCH ×2 (10:10→22:50)
[2016-08-22] MEDS: LISINOPRIL 10 MG TABLET PO SCH (10:11)
[2016-08-22] MEDS: LACTOBACILLUS ACIDOPHILUS 250 MG TAB PO SCH ×2 (10:11→17:11)
[2016-08-22] MEDS ORDERED: BISACODYL 10 MG SUPP.RECT PR PRN (11:06)
[2016-08-22] MEDS ORDERED: MICONAZOLE NITRATE 2% VAGINAL CREAM 45 GM TUBE TOP PRN (11:07)
[2016-08-22] MEDS ORDERED: PREDNISONE 20 MG TABLET PO ONE (11:30)
[2016-08-22] MEDS ORDERED: HYDROCHLOROTHIAZIDE 25 MG TABLET PO ONE (11:30)
[2016-08-22] MEDS ORDERED: FLUCONAZOLE 100 MG TABLET PO ONE (11:30)
[2016-08-22] MEDS ORDERED: BISACODYL 10 MG SUPP.RECT PR ONE (11:30)
[2016-08-22] MEDS: PREDNISONE 20 MG TABLET PO SCH (17:11)
--- NOTE | 2016-08-22 18:06 | PDOC PROGRESS REPORT ---
Subjective Progress Note for:: 08/22/16 Subjective:: Reports that her breathing is a little worse than yesterday. She complains of constipation. And she complains also of a yeast infection. Physical Exam Vital Signs: Temp Pulse Resp BP Pulse Ox 97.3 F 69 20 139/59 H 100 08/22/16 04:11 08/22/16 04:11 08/22/16 04:11 08/22/16 04:11 08/22/16 04:11 Intake & Output 08/21/16 08/22/16 08/23/16 06:59 06:59 06:59 Intake Total 2400 1645 Output Total 1050 900 Balance 1350 745 Weight 142.2 kg Exam: GENERAL: No acute distress, morbidly obese HEENT: Conjunctiva clear, nonicteric, moist mucous membranes, no JVD, midline trachea RESPIRATORY: RUL end expiratory wheezing CARDIAC: Regular rate and rhythm, no murmurs/gallops/rubs, difficult to ascultate due to body habitus ABDOMEN: Soft, nondistended, nontender, positive bowel sounds, no rebound, no guarding EXTREMETIES: No cyanosis, clubbing, edema NEUROLOGIC: Alert, oriented to person/place/time, CN's grossly intact, no focal deficits SKIN: No rashes or lesions PSYCH: Normal mood and affect Results Laboratory Results: 08/22/16 04:26 08/22/16 04:26 08/21/16 08/21/16 08/22/16 08:06 08:06 04:26 WBC 19.6 H 21.2 H RBC 5.17 4.65 Hgb 12.6 11.3 L Hct 39.5 35.9 L MCV 76 L 77 L MCH 24.3 L 24.2 L MCHC 31.8 L 31.4 L RDW 16.5 H 16.6 H Plt Count 305 277 Seg Neutrophils % 90.5 H Not Reportable Lymphocytes % 8.2 L Not Reportable Monocytes % 1.2 L Not Reportable Eosinophils % 0.0 Not Reportable Basophils % 0.1 Not Reportable Absolute Neutrophils 17.7 H Not Reportable Absolute Lymphocytes 1.6 Not Reportable Absolute Monocytes 0.2 Not Reportable Absolute Eosinophils 0.0 Not Reportable Absolute Basophils 0.0 Not Reportable Sodium 137.2 Potassium 4.2 Chloride 102 Carbon Dioxide 21 L Anion Gap 14 BUN 16 Creatinine 0.73 Est GFR ( Amer) > 60 Est GFR (Non-Af Amer) > 60 Glucose 338 H Calcium 9.7 Magnesium 2.0 08/22/16 04:26 WBC RBC Hgb Hct MCV MCH MCHC RDW Plt Count Seg Neutrophils % Lymphocytes % Monocytes % Eosinophils % Basophils % Absolute Neutrophils Absolute Lymphocytes Absolute Monocytes Absolute Eosinophils Absolute Basophils Sodium 137.1 Potassium 4.4 Chloride 104 Carbon Dioxide 19 L Anion Gap 14 BUN 24 H Creatinine 0.86 Est GFR ( Amer) > 60 Est GFR (Non-Af Amer) > 60 Glucose 381 H Calcium 9.5 Magnesium 08/20/16 08/21/16 08/21/16 19:05 00:58 08:06 Troponin I 0.040 0.025 0.047 Impressions: Chest X-Ray 08/21/16 00:00 IMPRESSION: Moderate-small lung volumes. Pulmonary vascular congestion. Assessment & Plan - Diagnosis (1) Asthma exacerbation Is this a current diagnosis for this admission?: YesPlan: Patient's asthma exacerbation appears to be secondary to a viral URI, but concern is for early pneumonia in light of her reports of fever and purulent sputum. Repeat chest xray reveals pulmonary vascular congestion. Patient has not had any further fever nor has she been able to produce sputum. Transition patient from Solu-Medrol to prednisone, and scheduled nebulized treatments. As well as as needed Xopenex. Will send sputum culture if able. Peak flow daily. Patient on telemetry and monitor. (2) Diastolic dysfunction Is this a current diagnosis for this admission?: YesPlan: Now euvolemic Patient with acute on chronic diastolic dysfunction. Continue lisinopril, metoprolol and lasix. History of chronic diastolic dysfunction. Stop fluid administration. (3) GERD (gastroesophageal reflux disease) Qualifiers: Esophagitis presence: without esophagitis Qualified Code(s): K21.9 - Gastro-esophageal reflux disease without esophagitis Is this a current diagnosis for this admission?: YesPlan: PPI (4) Diabetes mellitus type 2 in obese Is this a current diagnosis for this admission?: YesPlan: ADA diet Continue home medications and sliding scale insulin in light of steroid use Increase night Lantus and give additional dose now (5) Hyperlipidemia Qualifiers: Hyperlipidemia type: unspecified Qualified Code(s): E78.5 - Hyperlipidemia, unspecified Is this a current diagnosis for this admission?: Yes (6) TAMEKA (obstructive sleep apnea) Is this a current diagnosis for this admission?: YesPlan: It may use her home CPAP for sleep. If not one will be provided for (7) Morbid obesity with BMI of 40.0-44.9, adult Is this a current diagnosis for this admission?: Yes (8) DVT prophylaxis Is this a current diagnosis for this admission?: Yes
[2016-08-22] MEDS: LORATADINE 10 MG TABLET PO SCH (22:49)
[2016-08-22] MEDS: INSULIN GLARGINE,HUM.REC.ANLOG 300 UNIT/3 ML INSULN.PEN SUBCUT SCH (22:50)
[2016-08-23 06:38] LABS: ABSOLUTE MONOCYTES (AUTO) 1.2 10^3/uL (0.1-1.4); ABSOLUTE NEUT (AUTO) 14.9 10^3/uL (1.7-8.2); BASOPHILS % (AUTO) 0.1 % (0-2); HEMOGLOBIN 10.9 g/dL (12.0-15.5); HGB HCT DIFFERENCE -1.3; LYMPHOCYTES % (AUTO) 10.9 % (13-45); MEAN CORPUSCULAR HEMOGLOBIN 24.3 pg (27.0-33.4); MEAN CORPUSCULAR VOLUME 76 fl (80-97); MONOCYTES % (AUTO) 6.4 % (3-13); RED BLOOD COUNT 4.48 10^6/uL (3.72-5.28); RED CELL DISTRIBUTION WIDTH 16.2 % (11.5-14.0); SEGMENTED NEUTROPHILS % (AUTO) 82.6 % (42-78); WHITE BLOOD COUNT 18.1 10^3/uL (4.0-10.5)
[2016-08-23 06:53] LABS: ANION GAP 11 (5-19); BLOOD UREA NITROGEN 23 mg/dL (7-20); CALCIUM 8.9 mg/dL (8.4-10.2); CARBON DIOXIDE 23 mmol/L (22-30); CHLORIDE 102 mmol/L (98-107); CREATININE RESULT 0.76 mg/dL (0.52-1.25); GLUCOSE 253 mg/dL (75-110); POTASSIUM 4.1 mmol/L (3.6-5.0); SODIUM 135.8 mmol/L (137-145)
[2016-08-23] MEDS: IPRATROPIUM/ALBUTEROL 0.5-2.5 MG/3 ML AMPUL NEB SCH ×4 (08:10→19:41)
[2016-08-23] MEDS: ENOXAPARIN SODIUM INJ 40 MG/0.4 ML DISP.SYRIN SUBCUT SCH (08:13)
[2016-08-23] MEDS: INSULIN LISPRO 100 UNIT/ML 3 ML VIAL SUBCUT SCH ×3 (08:14→18:07)
[2016-08-23] MEDS: INSULIN LISPRO 100 UNIT/ML 3 ML VIAL SUBCUT PRN ×3 (08:14→21:18)
[2016-08-23] MEDS: GLIPIZIDE 10 MG TABLET PO SCH ×2 (08:15→16:58)
[2016-08-23] MEDS: METFORMIN HCL 500 MG TABLET PO SCH ×2 (08:15→16:58)
--- NOTE | 2016-08-23 09:37 | EKG REPORT ---
SEVERITY:- ABNORMAL ECG - SINUS RHYTHM ABNORMAL Q SUGGESTS ANTERIOR INFARCT BORDERLINE T WAVE ABNORMALITIES BORDERLINE PROLONGED QT INTERVAL : Confirmed by: Tan Mobley 23-Aug-2016 09:37:02
[2016-08-23] MEDS: FLUTICASONE/SALMETEROL DISKUS 500-50 MCG/DOSE IH SCH ×2 (09:43→21:18)
[2016-08-23] MEDS: FLUTICASONE NASAL SPRAY 50 MCG/SPRY 120 SPRAY/16 GM NASL SCH ×2 (09:43→21:17)
[2016-08-23] MEDS: PREDNISONE 20 MG TABLET PO SCH ×2 (09:44→18:08)
[2016-08-23] MEDS: HYDROCHLOROTHIAZIDE 25 MG TABLET PO SCH (09:45)
[2016-08-23] MEDS: METOPROLOL SUCCINATE 50 MG TAB.SR.24H PO SCH ×2 (09:45→21:18)
[2016-08-23] MEDS: LACTOBACILLUS ACIDOPHILUS 250 MG TAB PO SCH ×2 (09:46→18:07)
[2016-08-23] MEDS: LISINOPRIL 10 MG TABLET PO SCH (09:46)
[2016-08-23] MEDS ORDERED: PREDNISONE 20 MG TABLET PO ONE (12:34)
[2016-08-23] MEDS ORDERED: LANSOPRAZOLE 30 MG TAB.RAP.DR PO ONE (12:35)
[2016-08-23] MEDS: OXYCODONE-ACETAMINOPHEN 5-325 MG TABLET PO PRN ×2 (14:52→21:18)
[2016-08-23] MEDS: LANSOPRAZOLE 30 MG TAB.RAP.DR PO SCH (16:58)
--- NOTE | 2016-08-23 19:14 | XCELERA REPORT ---
[address] [address] Lower Extremity Venous Evaluation Name: DAYTON MENDOZA Age: 35 yrs Gender: Female : 1980 Patient Status: Inpatient Patient Location: [id number]\527\[id number] Study Date: 08/23/2016 02:49 PM Procedure: Color flow and duplex imaging of the veins of the left lower extremity as well as the right Common Femoral vein. Reason For Study: LLE swelling Ordering Physician: BELLA REESE Performed By: Mojgan Henning Right Sided Venous Evaluation The right common femoral vein is fully compressible. Spontaneous and phasic flow is present in the right common femoral vein. Left Sided Venous Evaluation Normal vessel filling wall to wall, compression and augmentation as well as Colour flow down to the infrageniculate veins. Interpretation Summary No duplex evidence of DVT or obstruction in the left lower extremity nor in the right Common Femoral vein. : BELLA REESE [place]
--- NOTE | 2016-08-23 19:46 | PDOC PROGRESS REPORT ---
Subjective Progress Note for:: 08/23/16 Subjective:: Complained of chest pain that was precordial. Patient reports that she feels like her breathing is slightly worse today after transition to oral steroids. Denies fever, chills, constipation, diarrhea, rash, new weakness. Note swelling in her left lower leg. Physical Exam Vital Signs: Temp Pulse Resp BP Pulse Ox 98.3 F 84 20 139/76 H 97 08/23/16 15:28 08/23/16 16:05 08/23/16 16:20 08/23/16 15:28 08/23/16 16:05 Intake & Output 08/22/16 08/23/16 08/24/16 06:59 06:59 06:59 Intake Total 1645 1880 1410 Output Total 900 2250 1900 Balance 745 370 -490 Weight 146.9 kg Exam: GENERAL: No acute distress, morbidly obese HEENT: Conjunctiva clear, nonicteric, moist mucous membranes, no JVD, midline trachea RESPIRATORY: Bilaterally CARDIAC: Regular rate and rhythm, no murmurs/gallops/rubs, difficult to ascultate due to body habitus ABDOMEN: Soft, nondistended, nontender, positive bowel sounds, no rebound, no guarding EXTREMETIES: No cyanosis, clubbing; 1+edema LLE NEUROLOGIC: Alert, oriented to person/place/time, CN's grossly intact, no focal deficits SKIN: No rashes or lesions PSYCH: Normal mood and affect Results Laboratory Results: 08/23/16 05:29 08/23/16 05:29 08/23/16 08/23/16 05:29 05:29 WBC 18.1 H RBC 4.48 Hgb 10.9 L Hct 34.0 L MCV 76 L MCH 24.3 L MCHC 32.0 RDW 16.2 H Plt Count 246 Seg Neutrophils % 82.6 H Lymphocytes % 10.9 L Monocytes % 6.4 Eosinophils % 0.0 Basophils % 0.1 Absolute Neutrophils 14.9 H Absolute Lymphocytes 2.0 Absolute Monocytes 1.2 Absolute Eosinophils 0.0 Absolute Basophils 0.0 Sodium 135.8 L Potassium 4.1 Chloride 102 Carbon Dioxide 23 Anion Gap 11 BUN 23 H Creatinine 0.76 Est GFR ( Amer) > 60 Est GFR (Non-Af Amer) > 60 Glucose 253 H Calcium 8.9 08/20/16 08/21/16 08/21/16 19:05 00:58 08:06 Troponin I 0.040 0.025 0.047 08/23/16 13:27 Troponin I 0.042 Impressions: Chest X-Ray 08/21/16 00:00 IMPRESSION: Moderate-small lung volumes. Pulmonary vascular congestion. Assessment & Plan - Diagnosis (1) Asthma exacerbation Is this a current diagnosis for this admission?: YesPlan: Patient's asthma exacerbation appears to be secondary to a viral URI, but concern is for early pneumonia in light of her reports of fever and purulent sputum. Repeat chest xray reveals pulmonary vascular congestion. Patient has not had any further fever nor has she been able to produce sputum. Increase prednisone to 60 mg p.o. twice daily, and scheduled nebulized treatments. As well as as needed Xopenex. Will send sputum culture if able. Peak flow daily. Patient on telemetry and monitor. (2) Diastolic dysfunction Is this a current diagnosis for this admission?: YesPlan: Now euvolemic Patient with acute on chronic diastolic dysfunction. Continue lisinopril, metoprolol and lasix. History of chronic diastolic dysfunction. (3) GERD (gastroesophageal reflux disease) Qualifiers: Esophagitis presence: without esophagitis Qualified Code(s): K21.9 - Gastro-esophageal reflux disease without esophagitis Is this a current diagnosis for this admission?: YesPlan: PPI (4) Diabetes mellitus type 2 in obese Is this a current diagnosis for this admission?: YesPlan: ADA diet Continue home medications and sliding scale insulin in light of steroid use Improved control. (5) Hyperlipidemia Qualifiers: Hyperlipidemia type: unspecified Qualified Code(s): E78.5 - Hyperlipidemia, unspecified Is this a current diagnosis for this admission?: YesPlan: Continue home medications. (6) TAMEKA (obstructive sleep apnea) Is this a current diagnosis for this admission?: Yes (7) Morbid obesity with BMI of 40.0-44.9, adult Is this a current diagnosis for this admission?: Yes (8) DVT prophylaxis Is this a current diagnosis for this admission?: Yes (9) Chest pain Qualifiers: Chest pain type: precordial pain Qualified Code(s): R07.2 - Precordial pain Is this a current diagnosis for this admission?: YesPlan: Obtain EKG and cardiac enzymes (10) Swelling of left lower extremity Is this a current diagnosis for this admission?: YesPlan: Doppler (11) Yeast infection of the vagina Is this a current diagnosis for this admission?: YesPlan: Fluconazole al 1 - Time Time Spent with patient: 25-34 minutes Medications reviewed and adjusted accordingly: Yes Anticipated discharge: Home Within: within 24 hours, within 48 hours
[2016-08-23] MEDS: LORATADINE 10 MG TABLET PO SCH (21:18)
[2016-08-23] MEDS: INSULIN GLARGINE,HUM.REC.ANLOG 300 UNIT/3 ML INSULN.PEN SUBCUT SCH (21:18)
--- NOTE | 2016-08-24 00:16 | EKG REPORT ---
SEVERITY:- BORDERLINE ECG - SINUS RHYTHM BORDERLINE T ABNORMALITIES, INFERIOR LEADS : Confirmed by: Tan Mobley 24-Aug-2016 00:15:53
[2016-08-24] MEDS: LANSOPRAZOLE 30 MG TAB.RAP.DR PO SCH ×2 (06:36→17:12)
[2016-08-24] MEDS: GLIPIZIDE 10 MG TABLET PO SCH ×2 (07:46→17:12)
[2016-08-24] MEDS: METFORMIN HCL 500 MG TABLET PO SCH ×2 (07:46→16:10)
[2016-08-24] MEDS: INSULIN LISPRO 100 UNIT/ML 3 ML VIAL SUBCUT SCH ×3 (07:47→16:09)
[2016-08-24] MEDS: INSULIN LISPRO 100 UNIT/ML 3 ML VIAL SUBCUT PRN ×3 (07:47→16:09)
[2016-08-24] MEDS: ENOXAPARIN SODIUM INJ 40 MG/0.4 ML DISP.SYRIN SUBCUT SCH (07:48)
[2016-08-24] MEDS: OXYCODONE-ACETAMINOPHEN 5-325 MG TABLET PO PRN (08:10)
[2016-08-24] MEDS: IPRATROPIUM/ALBUTEROL 0.5-2.5 MG/3 ML AMPUL NEB SCH ×3 (08:12→16:05)
[2016-08-24] MEDS: LISINOPRIL 10 MG TABLET PO SCH (09:00)
[2016-08-24] MEDS: HYDROCHLOROTHIAZIDE 25 MG TABLET PO SCH (09:01)
[2016-08-24] MEDS: METOPROLOL SUCCINATE 50 MG TAB.SR.24H PO SCH (09:01)
[2016-08-24] MEDS: FLUTICASONE NASAL SPRAY 50 MCG/SPRY 120 SPRAY/16 GM NASL SCH (09:02)
[2016-08-24] MEDS: PREDNISONE 20 MG TABLET PO SCH ×2 (09:02→17:11)
[2016-08-24] MEDS: FLUTICASONE/SALMETEROL DISKUS 500-50 MCG/DOSE IH SCH (09:02)
[2016-08-24] MEDS: LACTOBACILLUS ACIDOPHILUS 250 MG TAB PO SCH ×2 (09:02→17:12)
[2016-08-24 16:44] VITALS: BP 153/94
--- NOTE | 2016-08-24 17:48 | PDOC DISCHARGE SUMMARY ---
General - Admit/Disc Date/PCP Admission Date/Primary Care Provider: 08/20/16 18:28 Discharge Date: 08/24/16 - Discharge Diagnosis (1) Acute and chronic respiratory failure Is this a current diagnosis for this admission?: Yes (2) Asthma exacerbation Is this a current diagnosis for this admission?: Yes (3) Diastolic dysfunction Is this a current diagnosis for this admission?: Yes (4) Diabetes mellitus type 2 in obese Is this a current diagnosis for this admission?: Yes (5) Hyperlipidemia Is this a current diagnosis for this admission?: Yes (6) Morbid obesity with BMI of 40.0-44.9, adult Is this a current diagnosis for this admission?: Yes (7) TAMEKA (obstructive sleep apnea) Is this a current diagnosis for this admission?: Yes - Additional Information Resuscitation Status: Full Code Discharge Diet: Cardiac, Diabetic Discharge Activity: Activity As Tolerated, Balance Activity w/Rest, Slowly Increase Activity Home Medications: Albuterol Sulfate [Proair HFA] 2 puff IH Q8 08/20/16 Fluticasone/Salmeterol [Advair 500-50 Diskus 28 Dose] 1 inh IH Q12 08/20/16 Glipizide [Glucotrol 5 mg Tablet] 10 mg PO BID 08/20/16 Hydrochlorothiazide 25 mg PO DAILY 08/20/16 Insulin Glargine,Hum.rec.anlog [Lantus Solostar] 35 unit SQ DAILY 08/20/16 Liraglutide [Victoza 2-Bryce] 1.6 mg SQ Q12 08/20/16 Lisinopril [Prinivil 40 mg Tablet] 40 mg PO Q12 08/20/16 Metformin HCl [Glucophage] 1,000 mg PO BIDACBS 08/20/16 Pantoprazole Sodium [Protonix] 40 mg PO DAILY 08/20/16 Diltiazem HCl [Cardizem Cd 120 mg Capsule] 1 cap.sr PO BID #60 cap.sr 08/24/16 Insulin Aspart [Novolog Flexpen] 0 unit SUBCUT .SLD SCALE #1 pen 08/24/16 Prednisone [Deltasone 10 mg Tablet] 10 mg PO ASDIR PRN #21 tablet 08/24/16 History of Present Illness Patient complains of: Shortness of breath History of Present Illness: DAYTON MENDOZA is a 35 year old female with a past medical history of diabetes type 1.5, hypertension, diastolic heart failure, TAMEKA who presents to the ER with shortness of breath. Patient reports that she has been feeling ill since Tuesday and having a cough is productive of brown brown green sputum. She reports that she had thought that she was improving until this morning when she woke up with a fever which she reports to be 102.1 at home and chills. She does report some diarrhea but denies any hematochezia or melena. She does report congestion and significant wheezing. In the emergency department patient received 3 albuterol/Atrovent treatments, Solu-Medrol 125 mg IV, and 2 g of magnesium sulfate. Patient continues to have ongoing wheezing and tachypnea. Reports that her peak flow was in the red area. She is referred to hospital service for asthma exacerbation. Medication changes since she was here last. Patient's medication list is currently unavailable and being reconciled by pharmacy. Patient reports her medications include but are not limited to metformin, glipizide, Lantus 35 units at bedtime, Victoza, hydrochlorothiazide, lisinopril, metoprolol. Hospital Course Hospital Course: Patient was admitted for asthma exacerbation. She has been treatedinitially with IV Solumedrol eventually transitioned to oral prednisone. She has made gradual improvement. She has long-standing severe asthma and has been tested for allergens in the past. She has allergies to pollen, mold, perfumes and fragrances, as well as other things. She has seen a certified technician specialist in the past but currently does not see one as she does not have insurance. Of note patient has recently been started on beta-tracee (metoprolol) and dose has been escalated. Her asthma has worsened over this time. Metoprolol was discontinued during this admission and patient was started on Cardizem for hypertension. She is discharged home in stable condition on above listed medications. Physical Exam Vital Signs: Temp Pulse Resp BP Pulse Ox 97.9 F 80 20 153/94 H 94 08/24/16 16:28 08/24/16 16:28 08/24/16 16:28 08/24/16 16:28 08/24/16 16:28 Intake & Output 08/23/16 08/24/16 08/25/16 06:59 06:59 06:59 Intake Total 1880 2880 1200 Output Total 2250 3975 500 Balance -370 -1095 700 Weight 146.9 kg 147.1 kg GENERAL: No acute distress HEENT: Conjunctiva clear, nonicteric, moist mucous membranes, no JVD, midline trachea RESPIRATORY: Faint bilateral wheezes, good air excursion CARDIAC: Regular rate and rhythm, no murmurs/gallops/rubs ABDOMEN: Soft, nondistended, nontender, positive bowel sounds, no rebound, no guarding EXTREMETIES: No edema, cyanosis, clubbing NEUROLOGIC: Alert, oriented to person/place/time, CN's grossly intact, no focal deficits SKIN: No rash, wounds PSYCH: Normal mood, normal affect Results Laboratory Results: 08/23/16 05:29 08/23/16 05:29 08/20/16 08/21/16 08/21/16 19:05 00:58 08:06 Troponin I 0.040 0.025 0.047 08/23/16 08/23/16 08/24/16 13:27 19:44 00:52 Troponin I 0.042 0.029 0.018 Impressions: Chest X-Ray 08/21/16 00:00 IMPRESSION: Moderate-small lung volumes. Pulmonary vascular congestion. Qualifiers PATEINT BEING DISCHARGED WITH ANY OF THE FOLLOWING DIAGNOSIS?: No Plan Time Spent: Less than 30 Minutes
== END 2016-08-24 17:49 | disposition home or self-care (01) | DRG 202 ==
LOC: ER 13:24 → UNDOADMIN 18:11 → EH 18:11 → 5 20:27
PROVIDERS: ADMIT Internal Medicine; ATTEND Internal Medicine
PROC: 3E0F73Z Introduction of Anti-inflammatory into Respiratory Tract, Via Natural or Artificial Opening (ICD-10-PCS; principal; 2016-08-20)
PROC: 5A09357 Assistance with Respiratory Ventilation, Less than 24 Consecutive Hours, Continuous Positive Airway Pressure (ICD-10-PCS; 2016-08-20)
DX: J45.901 Unspecified asthma with (acute) exacerbation (principal); J96.21 Acute and chronic respiratory failure with hypoxia; I50.33 Acute on chronic diastolic (congestive) heart failure; Z68.41 Body mass index [BMI] 40.0-44.9, adult; E11.9 Type 2 diabetes mellitus without complications; E66.9 Obesity, unspecified; J06.9 Acute upper respiratory infection, unspecified; G47.33 Obstructive sleep apnea (adult) (pediatric); E78.5 Hyperlipidemia, unspecified; I11.0 Hypertensive heart disease with heart failure; K21.9 Gastro-esophageal reflux disease without esophagitis; F41.9 Anxiety disorder, unspecified; F31.9 Bipolar disorder, unspecified; B37.3 Candidiasis of vulva and vagina; Z90.49 Acquired absence of other specified parts of digestive tract; Z79.4 Long term (current) use of insulin; Z79.899 Other long term (current) drug therapy; Z87.891 Personal history of nicotine dependence; Z88.1 Allergy status to other antibiotic agents; Z88.0 Allergy status to penicillin; Z91.030 Bee allergy status; Z82.49 Family history of ischemic heart disease and other diseases of the circulatory system
CPT/HCPCS: 36415; 71010; 71020; 80048; 80053; 81001; 82962; 83735; 84484; 84703; 85025; 87040; 87493; 93005; 93010; 93971; 94640; 94660; 96365; 96367; 96375; 99285; J0360; J1650; J1815; J1940; J1956; J2930; J3475; J3490; J7030; J7512; J7620

== ENCOUNTER 2016-10-02 09:36 | Emergency (ER) | payer OTHER ==
[2016-10-02 10:09] LABS: ABSOLUTE EOSINOPHILS # (AUTO) 0.1 10^3/uL (0.0-0.6); ABSOLUTE LYMPHOCYTES (AUTO) 2.1 10^3/uL (0.5-4.7); ABSOLUTE MONOCYTES (AUTO) 0.9 10^3/uL (0.1-1.4); BASOPHILS % (AUTO) 0.4 % (0-2); EOSINOPHILS % (AUTO) 0.9 % (0-6); HEMATOCRIT 36.1 % (36.0-47.0); HEMOGLOBIN 11.7 g/dL (12.0-15.5); LYMPHOCYTES % (AUTO) 16.3 % (13-45); MEAN CORPUSCULAR HEMOGLOBIN 24.6 pg (27.0-33.4); MEAN CORPUSCULAR HGB CONC 32.5 g/dL (32.0-36.0); MEAN CORPUSCULAR VOLUME 76 fl (80-97); MONOCYTES % (AUTO) 6.9 % (3-13); RED BLOOD COUNT 4.78 10^6/uL (3.72-5.28); RED CELL DISTRIBUTION WIDTH 16.9 % (11.5-14.0); SEGMENTED NEUTROPHILS % (AUTO) 75.5 % (42-78); WHITE BLOOD COUNT 13.2 10^3/uL (4.0-10.5)
[2016-10-02 10:25] LABS: ALANINE AMINOTRANSFERASE 22 U/L (9-52); ALBUMIN 3.5 g/dL (3.5-5.0); ALKALINE PHOSPHATASE 72 U/L (38-126); ANION GAP 12 (5-19); ASPARTATE AMINO TRANSFERASE 17 U/L (14-36); BILIRUBIN,DIRECT 0.3 mg/dL (0.0-0.4); BILIRUBIN,TOTAL 0.6 mg/dL (0.2-1.3); BLOOD UREA NITROGEN 9 mg/dL (7-20); CALCIUM 8.3 mg/dL (8.4-10.2); CARBON DIOXIDE 23 mmol/L (22-30); CHLORIDE 104 mmol/L (98-107); CREATININE RESULT 0.66 mg/dL (0.52-1.25); GLUCOSE 291 mg/dL (75-110); LIPASE 64.6 U/L (23-300); POTASSIUM 3.9 mmol/L (3.6-5.0); SODIUM 138.5 mmol/L (137-145); TOTAL PROTEIN 6.1 g/dL (6.3-8.2)
[2016-10-02 11:25] LABS: APPEARANCE,URINE SLIGHTLY-CLOUDY; BILIRUBIN,URINE NEGATIVE (NEGATIVE); GLUCOSE, URINE >=500 mg/dL (NEGATIVE); KETONES,URINE NEGATIVE (NEGATIVE); LEUKOCYTE ESTERASE,URINE NEGATIVE (NEGATIVE); NITRITE,URINE NEGATIVE (NEGATIVE); PROTEIN,URINE NEGATIVE (NEGATIVE); URINE SPECIFIC GRAVITY 1.024; UROBILINOGEN,URINE NEGATIVE mg/dL (<2.0)
--- NOTE | 2016-10-02 13:43 | RADIOLOGY REPORT (SQ) ---
EXAM DESCRIPTION: U/S NON OB PEL TV W/DOPPLER COMPLETED DATE/TIME: 10/02/2016 1:34 pm REASON FOR STUDY: LLQ pain COMPARISON: None. TECHNIQUE: Dynamic and static grayscale images acquired of the pelvis via transvaginal approach and recorded on PACS. Additional selected color Doppler and spectral images recorded. LIMITATIONS: None. FINDINGS: UTERUS: Contour normal. No mass. Possible septate morphologic variant. ENDOMETRIAL STRIPE: No focal or generalized thickening. No masses. CERVIX: No nabothian cysts. RIGHT OVARY: No abnormal masses. RIGHT OVARY DOPPLER: Normal arterial vascular flow without evidence for torsion. LEFT OVARY: No abnormal masses. LEFT OVARY DOPPLER: Normal arterial vascular flow without evidence for torsion. FREE FLUID: None noted. OTHER: No other significant finding. MEASUREMENTS: UTERUS: 10.2 x 6.8 x 5.9 cm. ENDOMETRIAL STRIPE: 9 mm. RIGHT OVARY: 5.1 x 2.8 x 2.8 cm. LEFT OVARY: 4.0 x 3.1 x 3.1 cm. IMPRESSION: NORMAL TRANSVAGINAL PELVIC ULTRASOUND. TECHNICAL DOCUMENTATION: JOB ID: [id number]- All Rights Reserved
--- NOTE | 2016-10-02 13:52 | ER Document Report ---
ED General - General Chief Complaint: Abdominal Pain Stated Complaint: ABDOMINAL PAIN Time Seen by Provider: 10/02/16 09:40 Mode of Arrival: Ambulatory Information source: Patient Notes: 35-year-old female presents with complaints of left lower quadrant abdominal pain. Patient notes symptoms started prior to arrival. Denies any fevers or chills nausea vomiting or diarrhea. Patient feels a pressure sensation TRAVEL OUTSIDE OF THE [place] IN LAST 30 DAYS: No - HPI Onset: Just prior to arrival Onset/Duration: Sudden Quality of pain: Pressure Severity: Mild Pain Level: 1 Associated symptoms: Other Exacerbated by: Denies Relieved by: Denies Similar symptoms previously: No Recently seen / treated by doctor: No - Related Data Allergies/Adverse Reactions: aspirin Allergy (Intermediate, Verified 08/20/16 19:19) amoxicillin [Amoxicillin] Allergy (Verified 08/20/16 19:19) Penicillins Allergy (Verified 08/20/16 19:19) Bees/Wasp Allergy (Uncoded 08/20/16 19:19) Past Medical History - Social History Smoking Status: Never Smoker Cigarette use (# per day): No Chew tobacco use (# tins/day): No Smoking Education Provided: No Frequency of alcohol use: None Drug Abuse: None Family History: Hypertension - Past Medical History Cardiac Medical History: Reports: Hx Hypercholesterolemia, Hx Hypertension Pulmonary Medical History: Reports: Hx Asthma, Hx Pneumonia Neurological Medical History: Denies: Hx Seizures Endocrine Medical History: Reports: Hx Diabetes Mellitus Type 2. Denies: Hx Diabetes Mellitus Type 1 Renal/ Medical History: Reports: Hx Kidney Stones. Denies: Hx Peritoneal Dialysis GI Medical History: Denies: Hx Cirrhosis, Hx Crohn's Disease, Hx Hepatitis Psychiatric Medical History: Reports: Hx Anxiety, Hx Bipolar Disorder, Hx Depression Infectious Medical History: Denies: Hx Hepatitis Past Surgical History: Reports: Hx Cholecystectomy, Hx Herniorrhaphy, Hx Umbilical Hernia - Immunizations Immunizations up to date: No Hx Diphtheria, Pertussis, Tetanus Vaccination: Yes Hx Pneumococcal Vaccination: 07/28/15 Review of Systems - Review of Systems Notes: REVIEW OF SYSTEMS: CONSTITUTIONAL : Denies fever, chills, or sweats. Denies recent illness. EENT: Denies eye, ear, throat, or mouth pain or symptoms. Denies nasal or sinus congestion or discharge. Denies throat, tongue, or mouth swelling or difficulty swallowing. CARDIOVASCULAR: Denies chest pain. Denies palpitations or racing or irregular heart beat. Denies ankle edema. RESPIRATORY: Denies cough, cold, or chest congestion. Denies shortness of breath, difficulty breathing, or wheezing. GASTROINTESTINAL: Admits to left lower quadrant abdominal pain GENITOURINARY: Denies difficulty urinating, painful urination, burning, frequency, blood in urine, or discharge. FEMALE GENITOURINARY: Denies vaginal bleeding, heavy or abnormal periods, irregular periods. Denies vaginal discharge or odor. MUSCULOSKELETAL: Denies back or neck pain or stiffness. Denies joint pain or swelling. SKIN: Denies rash, lesions or sores. HEMATOLOGIC : Denies easy bruising or bleeding. LYMPHATIC: Denies swollen, enlarged glands. NEUROLOGICAL: Denies confusion or altered mental status. Denies passing out or loss of consciousness. Denies dizziness or lightheadedness. Denies headache. Denies weakness or paralysis or loss of use of either side. Denies problems with gait or speech. Denies sensory loss, numbness, or tingling. Denies seizures. PSYCHIATRIC: Denies anxiety or stress. Denies depression, suicidal ideation, or homicidal ideation. ALL OTHER SYSTEMS REVIEWED AND NEGATIVE. PHYSICAL EXAMINATION: GENERAL: Well-appearing, well-nourished and in no acute distress. Patient was sleeping on 3 reevaluation attempts HEAD: Atraumatic, normocephalic. EYES: Pupils equal round and reactive to light, extraocular movements intact, conjunctiva are normal. ENT: Nares patent, oropharynx clear without exudates. Moist mucous membranes. NECK: Normal range of motion, supple without lymphadenopathy LUNGS: Breath sounds clear to auscultation bilaterally and equal. No wheezes rales or rhonchi. HEART: Regular rate and rhythm without murmurs ABDOMEN: Soft, nontender, nondistended abdomen. No guarding, no rebound. No masses appreciated. Female : deferred Musculoskeletal: Normal range of motion, no pitting or edema. No cyanosis. NEUROLOGICAL: Cranial nerves grossly intact. Normal speech, normal gait. Normal sensory, motor exams PSYCH: Normal mood, normal affect. SKIN: Warm, Dry, normal turgor, no rashes or lesions noted. Dictation was performed using [employer] voice recognition software Physical Exam - Vital signs Vitals: Resp Pulse Ox 13 97 10/02/16 09:52 10/02/16 09:52 Course - Re-evaluation Re-evalutation: 10/02/16 15:08 Patient noted tenderness in the left lower quadrant however I was not able to reproduce his pain on palpation, she did have a mild white count elevation therefore an ultrasound was immediately performed which noted no acute abnormality, and I performed a CT of the abdomen and pelvis with IV contrast and again noted no acute abnormality. Given that the patient's afebrile vital signs have been stable she has been sleeping throughout her presentation in the ED and has been here for approximately 6 hours now I believe she is stable for discharge. Patient otherwise well-appearing Patient has been instructed to return immediately if there is any fevers or any new symptoms Patient is a diabetic is noted to be hyperglycemic with glucose in her urine After performing a Medical Screening Examination, I estimate there is LOW risk for ACUTE APPENDICITIS, BOWEL OBSTRUCTION, ACUTE CHOLECYSTITIS, PERFORATED DIVERTICULITIS, INCARCERATED HERNIA, PANCREATITIS, PELVIC INFLAMMATORY DISEASE, PERFORATED ULCER, ECTOPIC , or TUBO-OVARIAN ABSCESS, thus I consider the discharge disposition reasonable. Also, there is no evidence or peritonitis , sepsis, or toxicity. I have reevaluated this patient multiple times and no significant life threatening changes are noted. The patient and I have discussed the diagnosis and risks, and we agree with discharging home with close follow-up with the understanding that symptoms and presentations can change. We also discussed returning to the Emergency Department immediately if new or worsening symptoms occur. We have discussed the symptoms which are most concerning (e.g., bloody stool, fever, changing or worsening pain, vomiting) that necessitate immediate return. 10/02/16 15:11 - Vital Signs Vital signs: Temp Pulse Resp BP Pulse Ox 97.9 F 102 H 19 154/94 H 97 10/02/16 09:55 10/02/16 09:55 10/02/16 11:01 10/02/16 11:01 10/02/16 11:01 - Laboratory Result Diagrams: 10/02/16 09:55 10/02/16 09:55 Laboratory results interpreted by me: 10/02/16 10/02/16 10/02/16 09:55 09:55 11:14 WBC 13.2 H Hgb 11.7 L MCV 76 L MCH 24.6 L RDW 16.9 H Absolute Neutrophils 10.0 H Glucose 291 H Calcium 8.3 L Total Protein 6.1 L Urine Glucose (UA) >=500 H - Diagnostic Test Radiology reviewed: Image reviewed, Reports reviewed Discharge - Discharge Clinical Impression: Hyperglycemia, Abdominal pain, left lower quadrant Condition: Stable Disposition: HOME, SELF-CARE Instructions: Abdominal Pain ([facility]) Additional Instructions: Follow up with your physician tomorrow for further care or return to the ED IMMEDIATELY if symptoms worsen or new concerns occur. If you cannot afford to follow up with your primary care physician a list of low cost clinics have been provided at the end of your discharge papers as well. Prescriptions: Ketorolac Tromethamine [Toradol 10 mg Tablet] 10 mg PO Q6HP PRN #14 tablet PRN Reason:
--- NOTE | 2016-10-02 15:00 | RADIOLOGY REPORT (SQ) ---
EXAM DESCRIPTION: CT ABD/PELVIS WITH IV ONLY COMPLETED DATE/TIME: 10/02/2016 2:41 pm REASON FOR STUDY: LLQ pain COMPARISON: 05/17/2016 TECHNIQUE: CT scan of the abdomen and pelvis performed using helical scanning technique with dynamic intravenous contrast injection. No oral contrast. Images reviewed with lung, soft tissue, and bone windows. Reconstructed coronal and sagittal MPR images reviewed. All images stored on PACS. All CT scanners at this facility use dose modulation, iterative reconstruction, and/or weight based d osing when appropriate to reduce radiation dose to as low as reasonably achievable (ALARA). [facility]: Dose Right [facility]: CareDose [facility]: Dose Right [facility]: Teradose 4D [facility]: A2B CONTRAST TYPE AND DOSE: contrast/concentration: Isovue 370.00 mg/ml; Total Contrast Delivered: 100.0 ml; Total Saline Delivered: 72.0 ml RENAL FUNCTION: None required. The patient is less than 50 years old. RADIATION DOSE: Up-to-date CT equipment and radiation dose reduction techniques were employed. CTDIv ol: NaN - NaN mGy. DLP: 0 mGy-cm.. LIMITATIONS: None. FINDINGS: LOWER CHEST: No significant findings. No nodules or infiltrates. LIVER: Hepatic steatosis. No masses. No dilated ducts. SPLEEN: Normal size. No focal lesions. PANCREAS: No masses. No significant calcifications. No adjacent inflammation or peripancreatic fluid collections. Pancreatic duct not dilated. GALLBLADDER: Surgically absent. ADRENAL GLANDS: No significant masses or asymmetry. RIGHT KIDNEY AND URETER: No solid masses. No significant calcifications. No hydronephrosis or hyd roureter. LEFT KIDNEY AND URETER: No solid masses. No significant calcifications. No hydronephrosis or hydr oureter. AORTA AND VESSELS: No aneurysm. No dissection. Renal arteries, SMA, celiac without stenosis. RETROPERITONEUM: No retroperitoneal adenopathy, hemorrhage or masses. BOWEL AND PERITONEAL CAVITY: No masses or inflammatory changes. No free fluid or peritoneal masses. APPENDIX: Normal. PELVIS: No mass. No free fluid. Normal bladder. ABDOMINAL WALL: No masses. No hernias. BONES: No significant or acute findings. OTHER: No other significant finding. IMPRESSION: NO SIGNIFICANT OR ACUTE FINDING IN THE ABDOMEN OR PELVIS ON CT SCAN WITH IV CONTRAST. N O SIGNIFICANT CHANGE FROM PRIOR STUDY. TECHNICAL DOCUMENTATION: JOB ID: [id number] Quality ID # [id number]: Final reports with documentation of one or more dose reduction techniques (e.g., Au tomated exposure control, adjustment of the mA and/or kV according to patient size, use of iterative reconstruction technique) 2010 [employer]- All Rights Reserved
[2016-10-02 15:30] VITALS: BP 156/142
== END 2016-10-02 15:25 | disposition home or self-care (01) ==
LOC: ER 09:36
DX: R10.32 Left lower quadrant pain (principal); E11.65 Type 2 diabetes mellitus with hyperglycemia; D72.829 Elevated white blood cell count, unspecified; I10 Essential (primary) hypertension; J45.909 Unspecified asthma, uncomplicated; Z88.6 Allergy status to analgesic agent; Z88.0 Allergy status to penicillin; Z91.030 Bee allergy status; Z91.038 Other insect allergy status; Z87.442 Personal history of urinary calculi; Z90.49 Acquired absence of other specified parts of digestive tract
CPT/HCPCS: 36415; 74177; 76830; 80053; 81001; 81025; 83690; 85025; 93976; 99284

== ENCOUNTER 2016-12-08 22:40 | Inpatient (IN) | payer SELFPAY ==
[2016-12-08] MEDS ORDERED: IPRATROPIUM/ALBUTEROL 0.5-2.5 MG/3 ML AMPUL NEB ONE (23:06)
[2016-12-08] MEDS ORDERED: METHYLPREDNISOLONE INJ 125 MG/2 ML SDV IV ONE (23:07)
[2016-12-08] MEDS ORDERED: ALBUTEROL SULFATE 0.083% NEB 2.5 MG/3 ML AMPUL NEB ONE (23:08)
--- NOTE | 2016-12-08 23:09 | ER Document Report ---
ED General - General Chief Complaint: Breathing Difficulty Stated Complaint: DIFFICULTY BREATHING Time Seen by Provider: 12/08/16 22:49 Cannot obtain history due to: Unstable vital signs Notes: Patient is a 36-year-old female with a past medical history of morbid obesity and asthma who presents with 2 days of progressively worsening shortness of breath and cough. States that she has been trying her home albuterol inhaler and control medications without any improvement of her symptoms. States this feels similar to prior exacerbations that required hospitalization. She has not seen her primary care doctor regarding these concerns. She has not noted anything worsens her symptoms. She has had persistent cough which she states is intermittently led to episodes of posttussive emesis. She denies any fever or constitutional symptoms. History is otherwise limited secondary to the acuity of patient's presentation. TRAVEL OUTSIDE OF THE [place] IN LAST 30 DAYS: No - Related Data Allergies/Adverse Reactions: aspirin Allergy (Intermediate, Verified 08/20/16 19:19) amoxicillin [Amoxicillin] Allergy (Verified 08/20/16 19:19) Penicillins Allergy (Verified 08/20/16 19:19) Bees/Wasp Allergy (Uncoded 08/20/16 19:19) Past Medical History - General Information source: Patient - Social History Smoking Status: Never Smoker Frequency of alcohol use: None Drug Abuse: None Family History: Hypertension - Past Medical History Cardiac Medical History: Reports: Hx Hypercholesterolemia, Hx Hypertension Pulmonary Medical History: Reports: Hx Asthma, Hx Pneumonia Neurological Medical History: Denies: Hx Seizures Endocrine Medical History: Reports: Hx Diabetes Mellitus Type 2. Denies: Hx Diabetes Mellitus Type 1 Renal/ Medical History: Reports: Hx Kidney Stones. Denies: Hx Peritoneal Dialysis GI Medical History: Denies: Hx Cirrhosis, Hx Crohn's Disease, Hx Hepatitis Psychiatric Medical History: Reports: Hx Anxiety, Hx Bipolar Disorder, Hx Depression Infectious Medical History: Denies: Hx Hepatitis Past Surgical History: Reports: Hx Abdominal Surgery - hernia, Hx Cholecystectomy, Hx Herniorrhaphy, Hx Umbilical Hernia - Immunizations Immunizations up to date: No Hx Diphtheria, Pertussis, Tetanus Vaccination: Yes Hx Pneumococcal Vaccination: 07/28/15 Review of Systems - Review of Systems Notes: Constitutional: Negative for fever. HENT: Negative for sore throat. Eyes: Negative for visual changes. Cardiovascular: Negative for chest pain. Respiratory: Positive for shortness of breath. Gastrointestinal: Negative for abdominal pain, vomiting or diarrhea. Genitourinary: Negative for dysuria. Musculoskeletal: Negative for back pain. Skin: Negative for rash. Neurological: Negative for headaches, weakness or numbness. 10 point ROS negative except as marked above and in HPI. Physical Exam - Vital signs Vitals: Temp 98.5 F 12/08/16 22:52 Interpretation: Tachycardic, Tachypneic Notes: PHYSICAL EXAMINATION: GENERAL: In moderate respiratory distress, appears uncomfortable HEAD: Atraumatic, normocephalic. EYES: Pupils equal round and reactive to light, extraocular movements intact, sclera anicteric, conjunctiva are normal. ENT: nares patent, oropharynx clear without exudates. Moderately dry mucous membranes. NECK: Normal range of motion, supple without lymphadenopathy LUNGS: Diminished air movement in all lung adams bilaterally. Prolonged expiratory phase with associated expiratory wheezing. Moderate to severe respiratory distress with initial respiratory rates ranging between 34 and 36 breaths per minute. HEART: Regular tachycardia without murmurs ABDOMEN: Soft, nontender, normoactive bowel sounds. No guarding, no rebound. No masses appreciated. EXTREMITIES: Normal range of motion, no pitting or edema. No cyanosis. NEUROLOGICAL: No focal neurological deficits. Moves all extremities spontaneously and on command. PSYCH: Moderately anxious SKIN: Warm, Dry, normal turgor, no rashes or lesions noted. Course - Re-evaluation Re-evalutation: 12/08/16 23:08 Patient presents in respiratory distress, tachypneic to 34-35 breaths per minute , obvious discomfort lying in the bed. She has diminished air movement in all lung adams and a prolonged expiratory phase with associated expiratory wheezing. She has a history of severe asthma with recurrent exacerbations requiring admissions. Medial upon arrival patient was placed on telemetry, stat portable chest x-ray was obtained. She was placed on continuous albuterol and ipratropium nebulizers. An IV was established and IV magnesium and Solu- Medrol will begin administration. Will also begin IV fluids. Will continue to monitor patient closely as she is at elevated risk for decompensation secondary to her ongoing respiratory distress. 12/09/16 00:14 Patient has much improved air movement with continued expiratory wheezing and rhonchi throughout. Chest x-ray without evidence of an acute infiltrate. Suspect likely a viral bronchitis with an associated asthma exacerbation. The remainder of her labs are overall unremarkable. However patient remains tachypneic and unable to complete a full sentence. I do not believe she will likely be amenable to discharge home but will continue to monitor closely on continuous nebulizers at this time to see if she continues to improve. 12/09/16 00:38 Patient remains tachypneic and tachycardic. I do not believe she will be successfully able to be weaned off continuous nebulizers and discharged home. I have discussed with Dr. Elmore who will admit to the hospital. - Vital Signs Vital signs: Temp Pulse Resp BP Pulse Ox 98.4 F 58 L 24 H 147/87 H 97 12/09/16 02:03 12/09/16 02:03 12/09/16 02:03 12/09/16 02:03 12/09/16 02:03 - Laboratory Result Diagrams: 12/08/16 23:05 12/08/16 23:05 Laboratory results interpreted by me: 12/08/16 12/08/16 12/08/16 23:05 23:05 23:05 WBC 12.4 H RBC 5.39 H MCV 73 L MCH 23.7 L RDW 16.7 H Absolute Neutrophils 9.0 H Sodium 135.8 L Glucose 291 H NT-Pro-B Natriuret Pep 452 H - Diagnostic Test Radiology reviewed: Image reviewed, Reports reviewed Radiology results interpreted by me: 12/09/16 03:51 Chest x-ray: No acute infiltrate or pneumothorax Critical Care Note - Critical Care Note Total time excluding time spent on procedures (mins): 37 Comments: Critical care time spent obtaining history from patient or surrogate, discussions with consultants, development of treatment plan with patient or surrogate, evaluation of patient's response to treatment, examination of patient , ordering and performing treatments and interventions, ordering and review of laboratory studies, re-evaluation of patient's condition, ordering and review of radiographic studies and review of old charts Discharge - Discharge Clinical Impression: Morbid obesity with BMI of 40.0-44.9, adult, Diabetes mellitus type 2 in obese , Respiratory distress, Asthma exacerbation Condition: Fair Disposition: ADMITTED INPATIENT Admitting Provider: Oralia Elmore Unit Admitted: Telemetry
--- NOTE | 2016-12-08 23:14 | RADIOLOGY REPORT (SQ) ---
EXAM DESCRIPTION: CHEST SINGLE VIEW COMPLETED DATE/TIME: 12/08/2016 11:04 pm REASON FOR STUDY: sob COMPARISON: 08/21/2016 EXAM PARAMETERS: NUMBER OF VIEWS: One view. TECHNIQUE: Single frontal radiographic view of the chest acquired. RADIATION DOSE: NA LIMITATIONS: None. FINDINGS: LUNGS AND PLEURA: No opacities, masses or pneumothorax. No pleural effusion. MEDIASTINUM AND HILAR STRUCTURES: No masses. Contour normal. HEART AND VASCULAR STRUCTURES: Heart normal in size. Normal vasculature. BONES: No acute findings. HARDWARE: None in the chest. OTHER: No other significant finding. IMPRESSION: NO ACUTE RADIOGRAPHIC FINDING IN THE CHEST. TECHNICAL DOCUMENTATION: JOB ID: [id number]
[2016-12-08] MEDS: MAGNESIUM SULFATE/D5W 1 GM/100 ML RTUPB IV SCH ×2 (23:23→23:25)
[2016-12-08 23:40] LABS: ABSOLUTE BASOPHILS # (AUTO) 0.1 10^3/uL (0.0-0.2); ABSOLUTE EOSINOPHILS # (AUTO) 0.3 10^3/uL (0.0-0.6); ABSOLUTE LYMPHOCYTES (AUTO) 2.3 10^3/uL (0.5-4.7); ABSOLUTE MONOCYTES (AUTO) 0.8 10^3/uL (0.1-1.4); ANION GAP 10 (5-19); BASOPHILS % (AUTO) 0.4 % (0-2); BLOOD UREA NITROGEN 13 mg/dL (7-20); CALCIUM 9.1 mg/dL (8.4-10.2); CARBON DIOXIDE 22 mmol/L (22-30); CHLORIDE 104 mmol/L (98-107); CREATININE RESULT 0.73 mg/dL (0.52-1.25); EOSINOPHILS % (AUTO) 2.1 % (0-6); GLUCOSE 291 mg/dL (75-110); HEMATOCRIT 39.2 % (36.0-47.0); HEMOGLOBIN 12.8 g/dL (12.0-15.5); HGB HCT DIFFERENCE -0.8; LYMPHOCYTES % (AUTO) 18.4 % (13-45); MEAN CORPUSCULAR HEMOGLOBIN 23.7 pg (27.0-33.4); MEAN CORPUSCULAR HGB CONC 32.6 g/dL (32.0-36.0); MEAN CORPUSCULAR VOLUME 73 fl (80-97); MONOCYTES % (AUTO) 6.8 % (3-13); POTASSIUM 4.3 mmol/L (3.6-5.0); RED BLOOD COUNT 5.39 10^6/uL (3.72-5.28); RED CELL DISTRIBUTION WIDTH 16.7 % (11.5-14.0); SEGMENTED NEUTROPHILS % (AUTO) 72.3 % (42-78); SODIUM 135.8 mmol/L (137-145); WHITE BLOOD COUNT 12.4 10^3/uL (4.0-10.5)
[2016-12-09] MEDS ORDERED: HYDRALAZINE HCL INJ/PF 20 MG/1 ML SDV IV PRN (00:45)
[2016-12-09] MEDS ORDERED: CALCIUM CARBONATE 500 MG TAB.CHEW PO PRN (00:45)
[2016-12-09] MEDS ORDERED: IPRATROPIUM/ALBUTEROL 0.5-2.5 MG/3 ML AMPUL NEB PRN (00:46)
[2016-12-09] MEDS ORDERED: DEXTROSE 50%-WATER 25 GM/50 ML DISP.SYRIN IV PRN ×2 (00:46)
[2016-12-09] MEDS ORDERED: DEXTROSE 40% GEL 15 GM TUBE PO PRN ×2 (00:46)
[2016-12-09] MEDS ORDERED: GLUCAGON,HUMAN RECOMB 1 MG INJ IM PRN (00:46)
[2016-12-09] MEDS ORDERED: BENZONATATE 100 MG CAPSULE PO ONE (01:21)
[2016-12-09] MEDS ORDERED: FUROSEMIDE INJ/PF 40 MG/4 ML SDV IV ONE (01:30)
[2016-12-09] MEDS ORDERED: LACTULOSE SYRUP 20 GM/30 ML UDCUP PO ONE (01:30)
[2016-12-09] MEDS ORDERED: HYDRALAZINE HCL INJ/PF 20 MG/1 ML SDV IV ONE (01:30)
[2016-12-09] MEDS ORDERED: CHLORPHENIRAMINE MALEATE 4 MG TABLET PO ONE (01:30)
[2016-12-09] MEDS ORDERED: FLUTICASONE NASAL SPRAY 50 MCG/SPRY 120 SPRAY/16 GM NASL ONE (01:45)
[2016-12-09] MEDS: IPRATROPIUM/ALBUTEROL 0.5-2.5 MG/3 ML AMPUL NEB SCH ×5 (02:57→20:25)
[2016-12-09] MEDS ORDERED: CHLORPHENIRAMINE MALEATE 4 MG TABLET ONE (03:16)
[2016-12-09] MEDS ORDERED: FLUTICASONE NASAL SPRAY 50 MCG/SPRY 120 SPRAY/16 GM ONE (03:17)
[2016-12-09 05:00] LABS: HEMOGLOBIN 12.7 g/dL (12.0-15.5); MEAN CORPUSCULAR HGB CONC 32.6 g/dL (32.0-36.0)
--- NOTE | 2016-12-09 05:16 | PDOC H&P ---
History of Present Illness Admission Date/PCP: 12/09/16 00:46 Patient complains of: Shortness of breath and wheeze History of Present Illness: DAYTON MENDOZA is a 36 year old female with a past medical history of insulin- dependent diabetes, hypertension, diastolic heart failure, obstructive sleep apnea, morbid obesity and asthma who has had approximately 48 hours of exacerbation of asthma. She denies medication noncompliance, exposure to known triggers, URI or GERD symptoms. In the emergency room she is found to have tachypnea, tachycardia and global wheeze referred to the hospitalist for admission. Past Medical History Cardiac Medical History: Reports: Hyperlipidema, Hypertension Pulmonary Medical History: Reports: Asthma, Pneumonia Neurological Medical History: Denies: Seizures Endocrine Medical History: Reports: Diabetes Mellitus Type 2 Denies: Diabetes Mellitus Type 1 GI Medical History: Denies: Cirrhosis, Crohn's Disease, Hepatitis Psychiatric Medical History: Reports: Bipolar Disorder, Depression Past Surgical History Past Surgical History: Reports: Cholecystectomy, Herniorrhaphy Social History Information Source: Patient, Parent, [facility] Records Smoking Status: Never Smoker Number of Years Smokin Last Time Smoked: 03/14/2016 Frequency of Alcohol Use: Occasional Hx Recreational Drug Use: No Drugs: None Hx Prescription Drug Abuse: No - Advance Directive Resuscitation Status: Full Code Family History Family History: Hypertension Parental Family History Reviewed: Yes Children Family History Reviewed: Yes Sibling(s) Family History Reviewed.: Yes Medication/Allergy Home Medications: Albuterol Sulfate [Proair HFA] 2 puff IH Q8 08/20/16 Fluticasone/Salmeterol [Advair 500-50 Diskus 28 Dose] 1 inh IH Q12 08/20/16 Glipizide [Glucotrol 5 mg Tablet] 10 mg PO BID 08/20/16 Hydrochlorothiazide 25 mg PO DAILY 08/20/16 Insulin Glargine,Hum.rec.anlog [Lantus Solostar] 35 unit SQ DAILY 08/20/16 Liraglutide [Victoza 2-Bryce] 1.6 mg SQ Q12 08/20/16 Lisinopril [Prinivil 40 mg Tablet] 40 mg PO Q12 08/20/16 Metformin HCl [Glucophage] 1,000 mg PO BIDACBS 08/20/16 Pantoprazole Sodium [Protonix] 40 mg PO DAILY 08/20/16 Diltiazem HCl [Cardizem Cd 120 mg Capsule] 1 cap.sr PO BID #60 cap.sr 08/24/16 Insulin Aspart [Novolog Flexpen] 0 unit SUBCUT .SLD SCALE #1 pen 08/24/16 Prednisone [Deltasone 10 mg Tablet] 10 mg PO ASDIR PRN #21 tablet 08/24/16 Ketorolac Tromethamine [Toradol 10 mg Tablet] 10 mg PO Q6HP PRN #14 tablet 10/02 Allergies/Adverse Reactions: aspirin Allergy (Intermediate, Verified 08/20/16 19:19) amoxicillin [Amoxicillin] Allergy (Verified 08/20/16 19:19) Penicillins Allergy (Verified 08/20/16 19:19) Bees/Wasp Allergy (Uncoded 08/20/16 19:19) Review of Systems Constitutional: ABSENT: chills, fever(s), headache(s), weight gain, weight loss Eyes: ABSENT: visual disturbances Ears: ABSENT: hearing changes Cardiovascular: ABSENT: chest pain, dyspnea on exertion, edema, orthropnea, palpitations Respiratory: ABSENT: cough, hemoptysis Gastrointestinal: ABSENT: abdominal pain, constipation, diarrhea, hematemesis, hematochezia, nausea, vomiting Genitourinary: ABSENT: dysuria, hematuria Musculoskeletal: ABSENT: joint swelling Integumentary: ABSENT: rash, wounds Neurological: ABSENT: abnormal gait, abnormal speech, confusion, dizziness, focal weakness, syncope Psychiatric: ABSENT: anxiety, depression, homidical ideation, suicidal ideation Endocrine: ABSENT: cold intolerance, heat intolerance, polydipsia, polyuria Hematologic/Lymphatic: ABSENT: easy bleeding, easy bruising Physical Exam Vital Signs: Temp Pulse Resp BP Pulse Ox 98.4 F 58 L 18 147/87 H 97 12/09/16 02:03 12/09/16 02:03 12/09/16 03:57 12/09/16 02:03 12/09/16 03:57 Intake & Output 12/07/16 12/08/16 12/09/16 11:59 11:59 11:59 Weight 143.7 kg General appearance: PRESENT: no acute distress, well-developed, well-nourished Head exam: PRESENT: atraumatic, normocephalic Eye exam: PRESENT: conjunctiva pink, EOMI, PERRLA. ABSENT: scleral icterus Ear exam: PRESENT: normal external ear exam Mouth exam: PRESENT: moist, tongue midline Neck exam: ABSENT: carotid bruit, JVD, lymphadenopathy, thyromegaly Respiratory exam: PRESENT: accessory muscle use, prolonged expiratory phas, retraction, symmetrical, tachypnea, wheezes. ABSENT: rales, rhonchi Cardiovascular exam: PRESENT: RRR. ABSENT: diastolic murmur, rubs, systolic murmur Pulses: PRESENT: normal dorsalis pedis pul Vascular exam: PRESENT: normal capillary refill GI/Abdominal exam: PRESENT: normal bowel sounds, soft. ABSENT: distended, guarding, mass, organolmegaly, rebound, tenderness Rectal exam: PRESENT: deferred Extremities exam: PRESENT: full ROM. ABSENT: calf tenderness, clubbing, pedal edema Neurological exam: PRESENT: alert, awake, oriented to person, oriented to place , oriented to time, oriented to situation, CN II-XII grossly intact. ABSENT: motor sensory deficit Psychiatric exam: PRESENT: appropriate affect, normal mood. ABSENT: homicidal ideation, suicidal ideation Skin exam: PRESENT: dry, intact, warm. ABSENT: cyanosis, rash Results Impressions: Chest X-Ray 12/08/16 22:50 IMPRESSION: NO ACUTE RADIOGRAPHIC FINDING IN THE CHEST. Assessment & Plan - Diagnosis (1) Asthma exacerbation Is this a current diagnosis for this admission?: Yes Plan: Admission to telemetry floor, albuterol and Atrovent, prednisone twice daily and peak flow evaluation every 8 hours. (2) Diabetes mellitus type 2 in obese Is this a current diagnosis for this admission?: Yes Plan: Anticipate suboptimal control given prednisone. Home regiment with sliding scale insulin (3) Morbid obesity with BMI of 40.0-44.9, adult Is this a current diagnosis for this admission?: Yes Plan: Consider dietitian consult (4) GERD (gastroesophageal reflux disease) Qualifiers: Is this a current diagnosis for this admission?: Yes Plan: Empiric PPI twice daily suspected most likely cause of asthma flare (5) TAMEKA (obstructive sleep apnea) Is this a current diagnosis for this admission?: Yes Plan: BiPAP - Time Time Spent: 50 to 70 Minutes - Inpatient Certification Medical Necessity: Need Close Monitoring Due to Risk of Patient Decompensation
[2016-12-09 05:21] LABS: HEMATOCRIT 39.1 % (36.0-47.0); MEAN CORPUSCULAR HEMOGLOBIN 23.9 pg (27.0-33.4); MEAN CORPUSCULAR VOLUME 74 fl (80-97); RED BLOOD COUNT 5.33 10^6/uL (3.72-5.28); RED CELL DISTRIBUTION WIDTH 16.6 % (11.5-14.0)
[2016-12-09 05:25] LABS: BAND NEUTROPHILS % (MANUAL) 3 % (3-5); BASOPHILS % (MANUAL) 0 % (0-2); EOSINOPHILS % (MANUAL) 0 % (0-6); LYMPHOCYTES % (MANUAL) 6 % (13-45); TOTAL CELLS COUNTED 100
[2016-12-09 05:28] LABS: ANISOCYTOSIS 1+; HYPOCHROMASIA SLIGHT; MICROCYTOSIS 1+; POIKILOCYTOSIS SLIGHT; TEAR DROP CELLS SLIGHT; TOXIC GRANULATION 1+; TOXIC VACUOLATION PRESENT
[2016-12-09] MEDS: HEPARIN SOD (PORCINE) 5,000 UNIT/ML 1 ML SYRINGE SUBCUT SCH ×3 (06:33→21:38)
[2016-12-09] MEDS: INSULIN LISPRO 100 UNIT/ML 3 ML VIAL SUBCUT PRN ×4 (06:57→21:57)
[2016-12-09] MEDS ORDERED: INSULIN REG, HUMAN 100 UNIT/ML 3 ML VIAL (PYX) IV ONE (07:15)
[2016-12-09] MEDS ORDERED: GLIPIZIDE 10 MG TABLET PO ONE (08:30)
[2016-12-09] MEDS: FLUTICASONE NASAL SPRAY 50 MCG/SPRY 120 SPRAY/16 GM NASL SCH ×2 (08:42→21:39)
[2016-12-09] MEDS: DILTIAZEM HCL 120 MG CAP.SR.24H PO SCH ×2 (08:42→21:39)
[2016-12-09] MEDS: LISINOPRIL 10 MG TABLET PO SCH ×2 (08:44→21:38)
[2016-12-09] MEDS: PREDNISONE 20 MG TABLET PO SCH ×2 (08:44→17:32)
[2016-12-09] MEDS ORDERED: LANSOPRAZOLE 30 MG TAB.RAP.DR PO ONE (09:00)
[2016-12-09] MEDS ORDERED: METFORMIN HCL 500 MG TABLET PO ONE (09:00)
[2016-12-09] MEDS ORDERED: INSULIN GLARGINE,HUM.REC.ANLOG 300 UNIT/3 ML INSULN.PEN SUBCUT SCH ×2 (10:00→14:48)
[2016-12-09] MEDS ORDERED: LIRAGLUTIDE 1.6 MG SQ SCH ×2 (10:00→22:00)
--- NOTE | 2016-12-09 10:02 | EKG REPORT ---
SEVERITY:- BORDERLINE ECG - SINUS TACHYCARDIA BORDERLINE T ABNORMALITIES, INFERIOR LEADS BORDERLINE PROLONGED QT INTERVAL : Confirmed by: Heaven Marshall MD 09-Dec-2016 10:02:11
--- NOTE | 2016-12-09 10:04 | RADIOLOGY REPORT (SQ) ---
EXAM DESCRIPTION: CHEST PA/LAT COMPLETED DATE/TIME: 12/09/2016 9:54 am REASON FOR STUDY: r/u chf, elevated bnp COMPARISON: 12/08/2016. EXAM PARAMETERS: NUMBER OF VIEWS: two views TECHNIQUE: Digital Frontal and Lateral radiographic views of the chest acquired. RADIATION DOSE: NA LIMITATIONS: none FINDINGS: LUNGS AND PLEURA: No opacities, masses or pneumothorax. No pleural effusion. MEDIASTINUM AND HILAR STRUCTURES: No masses or contour abnormalities. HEART AND VASCULAR STRUCTURES: Heart normal size. No evidence for failure. BONES: No acute findings. HARDWARE: None in the chest. OTHER: No other significant finding. IMPRESSION: NO SIGNIFICANT RADIOGRAPHIC FINDING IN THE CHEST. TECHNICAL DOCUMENTATION: JOB ID: [id number] [employer]- All Rights Reserved
[2016-12-09] MEDS: FLUTICASONE/SALMETEROL DISKUS 500-50 MCG/DOSE IH SCH ×2 (10:57→21:39)
[2016-12-09] MEDS ORDERED: INSULIN LISPRO 100 UNIT/ML 3 ML VIAL SUBCUT ONE (15:00)
[2016-12-09] MEDS ORDERED: FUROSEMIDE INJ/PF 20 MG/2 ML SDV IV ONE (15:00)
--- NOTE | 2016-12-09 15:03 | PDOC PROGRESS REPORT ---
Subjective Progress Note for:: 12/09/16 Subjective:: The patient is a pleasant 36-year-old morbidly obese -[place] female with a past medical history significant for insulin-dependent diabetes mellitus , hypertension, diastolic congestive heart failure, obstructive sleep apnea and asthma. She is well-known to the hospitalist service. [facility] and is quite conscientious about her medical care but does have some challenges due to her lack of insurance and resources. The patient presented to the emergency room with increased shortness of breath and was found to be having an acute asthma exacerbation and she was referred for admission. The patient was given IV Solu-Medrol in the emergency room and is now on p.o. prednisone. She does not wear oxygen at baseline but currently is requiring 2 L. Today when I saw the patient she states her breathing is a little better but her chest still feels quite tight. She denies fever or chills. She continues to have wheezing and difficulty moving air. Her chest feels tight but she is not having any chest pain or heart palpitations. No nausea, vomiting or diarrhea. No abdominal pain. No dysuria, frequency or hematuria. The patient does state that she has a small abscess on her mons pubis on the right that is draining some purulent drainage. She also states that she has been having burning pain in both of her feet with some associated swelling recently. Physical Exam Vital Signs: Temp Pulse Resp BP Pulse Ox 98.3 F 110 H 24 H 145/87 H 97 12/09/16 11:04 12/09/16 14:00 12/09/16 13:42 12/09/16 11:04 12/09/16 13:42 Intake & Output 12/08/16 12/09/16 12/10/16 06:59 06:59 06:59 Intake Total 1650 Output Total 900 Balance 750 Weight 143.7 kg General appearance: PRESENT: no acute distress, morbidly obese, well-developed, well-nourished, other - She is receiving oxygen via nasal cannula Head exam: PRESENT: atraumatic, normocephalic Eye exam: PRESENT: conjunctiva pink, EOMI, PERRLA. ABSENT: scleral icterus Mouth exam: PRESENT: moist, tongue midline Neck exam: ABSENT: carotid bruit, JVD, lymphadenopathy, thyromegaly Respiratory exam: PRESENT: crackles, decreased breath sounds, wheezes. ABSENT: accessory muscle use, chest wall tenderness Cardiovascular exam: PRESENT: RRR. ABSENT: diastolic murmur, rubs, systolic murmur GI/Abdominal exam: PRESENT: normal bowel sounds, soft. ABSENT: distended, guarding, mass, organolmegaly, rebound, tenderness Gentrourinary exam: PRESENT: other - On the right side of the patient's mons pubis there is a small abscess that is draining some purulent yellow drainage. There is some mild surrounding erythema. Extremities exam: PRESENT: full ROM. ABSENT: calf tenderness, clubbing, pedal edema Neurological exam: PRESENT: alert, awake, oriented to person, oriented to place , oriented to time, oriented to situation, CN II-XII grossly intact. ABSENT: motor sensory deficit Psychiatric exam: PRESENT: appropriate affect, normal mood. ABSENT: homicidal ideation, suicidal ideation Skin exam: PRESENT: dry, intact, warm. ABSENT: cyanosis, rash Results Laboratory Results: 12/09/16 04:46 12/09/16 04:46 WBC 16.0 H RBC 5.33 H Hgb 12.7 Hct 39.1 MCV 74 L MCH 23.9 L MCHC 32.6 RDW 16.6 H Plt Count 241 Seg Neutrophils % Not Reportable Lymphocytes % Not Reportable Monocytes % Not Reportable Eosinophils % Not Reportable Basophils % Not Reportable Absolute Neutrophils Not Reportable Absolute Lymphocytes Not Reportable Absolute Monocytes Not Reportable Absolute Eosinophils Not Reportable Absolute Basophils Not Reportable Impressions: Chest X-Ray 12/09/16 00:00 IMPRESSION: NO SIGNIFICANT RADIOGRAPHIC FINDING IN THE CHEST. Assessment & Plan - Diagnosis (1) Acute respiratory failure with hypoxia Plan: The patient was not oxygen dependent prior to this hospitalization. Her respiratory failure is secondary to an asthma exacerbation as well as an element of probable obesity hypoventilation syndrome. I also believe she is having a mild diastolic congestive heart failure exacerbation as well. She will continue oxygen support as needed. She will continue to work with respiratory therapy with frequent nebulizer treatments and peak flows. Therapy will be outlined below. (2) Asthma exacerbation Is this a current diagnosis for this admission?: Yes Plan: The patient received Solu-Medrol in the emergency room. Steroids seem to exacerbate her heart failure. She will continue 20 mg of prednisone twice daily. She will continue bronchodilators as well as nebulizer treatments. Continue to monitor peak flows. I am going to place the patient on IV Levaquin in the event that she has an element of bronchitis. (3) Acute diastolic (congestive) heart failure Plan: The patient has an elevated BNP. She had a chest x-ray that was read by myself that reveals some vascular congestion. I am going to start the patient on Lasix 40 mg twice daily. (4) Insulin dependent type 2 diabetes mellitus, uncontrolled Plan: The patient states that she takes 50 units of Lantus at home. I am going to place her on 45 units of Lantus and place her on 15 units of Humalog 3 times daily before meals. I have increased her sliding scale. She will continue her Victoza and metformin as well. The patient states that the [facility] is no longer going to be able to provide her Lantus and when she runs out of this she is not going to have access to any more. She was unable to get Humalog as an outpatient due to the exorbitant cost. We are going to have her seen by the clinical dietitian as well as the diabetes nurse educator. There is an trader in [facility] who has some clinical trials providing free medical care and medications. I am going to give them a call tomorrow to see whether she would be a good fit for any of their programs. She does state that she would have the ability to get [facility] for appointments. (5) Morbid obesity with BMI of 40.0-44.9, adult Is this a current diagnosis for this admission?: Yes Plan: Certainly her weight is contributing to her respiratory problems. We will have the clinical dietitian talk to her while she is here. (6) TAMEKA (obstructive sleep apnea) Is this a current diagnosis for this admission?: Yes Plan: Stable (7) GERD (gastroesophageal reflux disease) Qualifiers: Is this a current diagnosis for this admission?: Yes Plan: Continue PPI (8) Hyponatremia Plan: This is quite mild. We will check a chemistry panel in the morning. (9) Peripheral neuropathy Plan: The patient complains of burning pain in both of her feet. We will start her on low-dose gabapentin and then we will try to increase the dose as tolerated until we get her symptoms under better control. (10) Skin abscess Plan: She has an abscess on the right mons pubis. A wound culture was obtained. This area is open and draining. We will wait for the wound culture to direct therapy. The patient currently is on IV Levaquin. - Time Time Spent with patient: 35 or more minutes - Inpatient Certification Medical Necessity: Need for Nebulizer Therapy and Monitoring of Response, Need for IV Antibiotics, Other - Inpatient hospitalization remains necessary. The patient has acute hypoxic respiratory failure secondary to an acute asthma exacerbation. She is requiring parenteral therapies and needs close monitoring in the hospital. Due to her socioeconomic status and lack of resources as an outpatient she is at high risk of decompensation if discharged too soon.
[2016-12-09] MEDS ORDERED: GABAPENTIN 100 MG CAPSULE PO ONE (15:30)
[2016-12-09] MEDS: METFORMIN HCL 500 MG TABLET PO SCH (15:49)
[2016-12-09] MEDS: GLIPIZIDE 10 MG TABLET PO SCH (15:49)
[2016-12-09] MEDS ORDERED: LEVOFLOXACIN 750 MG/D5W RTU 750 MG/150 ML RTUPB IV SCH (16:00)
[2016-12-09] MEDS ORDERED: GLIPIZIDE 5 MG TABLET PO SCH (16:00)
[2016-12-09] MEDS: FUROSEMIDE INJ/PF 40 MG/4 ML SDV IV SCH (21:42)
[2016-12-09] MEDS: GABAPENTIN 100 MG CAPSULE PO SCH (21:42)
[2016-12-09] MEDS: ACETAMINOPHEN 325 MG TABLET PO PRN (21:56)
[2016-12-09] MEDS ORDERED: KETOROLAC TROMETHAMINE INJ/PF 30 MG/1 ML SDV IV ONE (23:45)
[2016-12-10] MEDS: HEPARIN SOD (PORCINE) 5,000 UNIT/ML 1 ML SYRINGE SUBCUT SCH ×3 (05:47→22:17)
[2016-12-10] MEDS: LANSOPRAZOLE 30 MG TAB.RAP.DR PO SCH (05:48)
[2016-12-10] MEDS: GABAPENTIN 100 MG CAPSULE PO SCH ×3 (05:48→22:17)
[2016-12-10 06:42] LABS: ANION GAP 14 (5-19); BLOOD UREA NITROGEN 23 mg/dL (7-20); CALCIUM 10.1 mg/dL (8.4-10.2); CARBON DIOXIDE 23 mmol/L (22-30); CHLORIDE 100 mmol/L (98-107); CREATININE RESULT 0.89 mg/dL (0.52-1.25); GLUCOSE 313 mg/dL (75-110); MAGNESIUM 2.2 mg/dL (1.6-2.3); POTASSIUM 4.3 mmol/L (3.6-5.0); SODIUM 136.5 mmol/L (137-145)
[2016-12-10 06:53] LABS: HEMATOCRIT 37.8 % (36.0-47.0); HEMOGLOBIN 12.2 g/dL (12.0-15.5); HGB HCT DIFFERENCE -1.2; MEAN CORPUSCULAR HEMOGLOBIN 23.4 pg (27.0-33.4); MEAN CORPUSCULAR HGB CONC 32.3 g/dL (32.0-36.0); MEAN CORPUSCULAR VOLUME 72 fl (80-97); RED BLOOD COUNT 5.21 10^6/uL (3.72-5.28); RED CELL DISTRIBUTION WIDTH 16.9 % (11.5-14.0); WHITE BLOOD COUNT 22.5 10^3/uL (4.0-10.5)
[2016-12-10 07:19] LABS: BASOPHILS % (MANUAL) 0 % (0-2); EOSINOPHILS % (MANUAL) 0 % (0-6); LYMPHOCYTES % (MANUAL) 11 % (13-45); TOTAL CELLS COUNTED 100
[2016-12-10 07:20] LABS: ANISOCYTOSIS 1+; MICROCYTOSIS SLIGHT; POLYCHROMASIA SLIGHT; TOXIC GRANULATION 1+
[2016-12-10] MEDS: GLIPIZIDE 10 MG TABLET PO SCH ×2 (07:54→16:57)
[2016-12-10] MEDS: INSULIN LISPRO 100 UNIT/ML 3 ML VIAL SUBCUT PRN ×4 (07:54→22:39)
[2016-12-10] MEDS: METFORMIN HCL 500 MG TABLET PO SCH ×2 (07:54→16:57)
[2016-12-10] MEDS ORDERED: INSULIN LISPRO 100 UNIT/ML 3 ML VIAL SUBCUT SCH ×2 (08:00)
[2016-12-10] MEDS: INSULIN LISPRO 100 UNIT/ML 3 ML VIAL SUBCUT SCH ×3 (08:07→16:56)
[2016-12-10] MEDS: IPRATROPIUM/ALBUTEROL 0.5-2.5 MG/3 ML AMPUL NEB SCH ×4 (08:56→20:05)
[2016-12-10] MEDS: FLUTICASONE NASAL SPRAY 50 MCG/SPRY 120 SPRAY/16 GM NASL SCH ×2 (09:42→22:18)
[2016-12-10] MEDS: DILTIAZEM HCL 120 MG CAP.SR.24H PO SCH ×2 (09:42→22:17)
[2016-12-10] MEDS: INSULIN GLARGINE,HUM.REC.ANLOG 300 UNIT/3 ML INSULN.PEN SUBCUT SCH (09:42)
[2016-12-10] MEDS: FUROSEMIDE INJ/PF 40 MG/4 ML SDV IV SCH (09:42)
[2016-12-10] MEDS: PREDNISONE 20 MG TABLET PO SCH (09:42)
[2016-12-10] MEDS: LISINOPRIL 10 MG TABLET PO SCH ×2 (09:42→22:18)
[2016-12-10] MEDS: FLUTICASONE/SALMETEROL DISKUS 500-50 MCG/DOSE IH SCH ×2 (09:42→22:18)
[2016-12-10] MEDS: BACITRACIN ZINC OINTMENT 15 GM TP SCH (09:42)
[2016-12-10] MEDS: ACETAMINOPHEN 325 MG TABLET PO PRN (14:48)
[2016-12-10] MEDS ORDERED: SULFAMETHOXAZOLE/TRIMETHOPRIM 800-160 MG TABLET PO ONE (15:00)
--- NOTE | 2016-12-10 15:34 | PDOC PROGRESS REPORT ---
Subjective Progress Note for:: 12/10/16 Subjective:: The patient is a pleasant 36-year-old morbidly obese -Chinese female with a past medical history significant for insulin-dependent diabetes mellitus , hypertension, diastolic congestive heart failure, obstructive sleep apnea and asthma. She is well-known to the hospitalist service. [facility] and is quite conscientious about her medical care but does have some challenges due to her lack of insurance and resources. The patient presented to the emergency room with increased shortness of breath and was found to be having an acute asthma exacerbation and she was referred for admission. The patient was given IV Solu-Medrol in the emergency room and is now on p.o. prednisone. She does not wear oxygen at baseline but was requiring 2 L at the time of admission. When I saw the patient this morning she states that she is feeling better. She is hoping that she can be weaned off of her oxygen soon. She states her chest is not as tight and she is not wheezing this badly. She has had no fever chills overnight. She states that her chest wall is somewhat sore from the frequent coughing. She has had no nausea, vomiting or diarrhea. No abdominal pain. No dysuria, frequency or hematuria. Physical Exam Vital Signs: Temp Pulse Resp BP Pulse Ox 98.0 F 92 18 124/70 97 12/10/16 07:28 12/10/16 12:27 12/10/16 12:27 12/10/16 07:28 12/10/16 12:27 Intake & Output 12/09/16 12/10/16 12/11/16 06:59 06:59 06:59 Intake Total 1650 3810 Output Total 900 4000 Balance 750 -190 Weight 143.7 kg 143.8 kg General appearance: PRESENT: no acute distress, morbidly obese, well-developed, well-nourished Head exam: PRESENT: atraumatic, normocephalic Mouth exam: PRESENT: moist, tongue midline Respiratory exam: PRESENT: chest wall tenderness, decreased breath sounds, wheezes - Which has improved since yesterday. ABSENT: accessory muscle use Cardiovascular exam: PRESENT: RRR. ABSENT: diastolic murmur, rubs, systolic murmur GI/Abdominal exam: PRESENT: normal bowel sounds, soft. ABSENT: distended, guarding, mass, organolmegaly, rebound, tenderness Rectal exam: PRESENT: deferred Extremities exam: PRESENT: full ROM. ABSENT: calf tenderness, clubbing, pedal edema Neurological exam: PRESENT: alert, awake, oriented to person, oriented to place , oriented to time, oriented to situation, CN II-XII grossly intact. ABSENT: motor sensory deficit Psychiatric exam: PRESENT: appropriate affect, normal mood. ABSENT: homicidal ideation, suicidal ideation Skin exam: PRESENT: dry, intact, warm, other - Abscess that was draining yesterday is almost totally resolved. There is only some minimal surrounding erythema and mild drainage which is yellow in color.. ABSENT: cyanosis, rash Results Laboratory Results: 12/10/16 06:05 12/10/16 06:05 12/10/16 12/10/16 06:05 06:05 WBC 22.5 H RBC 5.21 Hgb 12.2 Hct 37.8 MCV 72 L MCH 23.4 L MCHC 32.3 RDW 16.9 H Plt Count 299 Seg Neutrophils % Not Reportable Lymphocytes % Not Reportable Monocytes % Not Reportable Eosinophils % Not Reportable Basophils % Not Reportable Absolute Neutrophils Not Reportable Absolute Lymphocytes Not Reportable Absolute Monocytes Not Reportable Absolute Eosinophils Not Reportable Absolute Basophils Not Reportable Sodium 136.5 L Potassium 4.3 Chloride 100 Carbon Dioxide 23 Anion Gap 14 BUN 23 H Creatinine 0.89 Est GFR ( Amer) > 60 Est GFR (Non-Af Amer) > 60 Glucose 313 H Calcium 10.1 Magnesium 2.2 12/10/16 06:05 NT-Pro-B Natriuret Pep 112 Impressions: Chest X-Ray 12/09/16 00:00 IMPRESSION: NO SIGNIFICANT RADIOGRAPHIC FINDING IN THE CHEST. Assessment & Plan - Diagnosis (1) Acute respiratory failure with hypoxia Plan: The patient is still on 2 L of oxygen but she is improving. We will have respiratory therapy try to wean her off as the day goes on. Her acute respiratory failure secondary to her asthma exacerbation. (2) Asthma exacerbation Is this a current diagnosis for this admission?: Yes Plan: The patient received Solu-Medrol in the emergency room. Steroids seem to exacerbate her heart failure. I am going to decrease her prednisone today as her wheezing is improved. We will continue aggressive breathing treatments. She had been started on Levaquin in the event that she had an acute bronchitis. It is noted that she has a prolonged QT and this has been stopped. (3) Acute diastolic (congestive) heart failure Plan: The patient had an elevated BNP and a chest x-ray concerning for vascular congestion. She was diuresed with IV Lasix. Her BNP is greatly improved. I will change her over to oral Lasix at this time. (4) Insulin dependent type 2 diabetes mellitus, uncontrolled Plan: I have adjusted the patient's insulin and her blood sugars are improving. This may need to be titrated backwards a little bit as her steroids are tapered. I have had a long discussion with the patient. [facility] with the [facility] and after she runs out of her current box of Lantus they are no longer going to be able to provide free medications for her going forward. I have spoken to Dr. Ratliff's office in [facility] about getting the patient possibly involved in 1 of their clinical trials. She is going to fill out the questionnaire online and hopefully could get accepted into 1 of their programs. The meantime she will contact the drug manufacturers to see if she can get discounts on her insulin going forward. She states that she was not able to afford Humalog due to a $500 co-pay. I am not sure if anyone tried NovoLog or Apidra. We will try to set her up for success as best we can at the time of discharge. (5) Morbid obesity with BMI of 40.0-44.9, adult Is this a current diagnosis for this admission?: Yes Plan: Certainly her weight is contributing to her respiratory problems. We will have the clinical dietitian talk to her while she is here. (6) TAMEKA (obstructive sleep apnea) Is this a current diagnosis for this admission?: Yes Plan: Stable (7) GERD (gastroesophageal reflux disease) Qualifiers: Is this a current diagnosis for this admission?: Yes Plan: Continue PPI (8) Hyponatremia Plan: This is quite mild. We will check a chemistry panel in the morning. (9) Peripheral neuropathy Plan: The patient complains of burning pain in both of her feet. She was started on gabapentin yesterday. (10) Skin abscess Plan: She has an abscess on the right mons pubis. A wound culture was obtained which is negative to date. This area is open and draining and does not appear to be acutely infected. For now she has antibiotic ointment placed on the area. - Time Time Spent with patient: 25-34 minutes - Inpatient Certification Medical Necessity: Other - Inpatient hospitalization remains necessary. The patient is having an acute asthma exacerbation and is still requiring oxygen therapy. Timing of disposition will be determined by her clinical course.
[2016-12-10] MEDS ORDERED: FUROSEMIDE 20 MG TABLET PO ONE (18:00)
[2016-12-10] MEDS ORDERED: SULFAMETHOXAZOLE/TRIMETHOPRIM 800-160 MG TABLET PO SCH (22:00)
[2016-12-11] MEDS: HEPARIN SOD (PORCINE) 5,000 UNIT/ML 1 ML SYRINGE SUBCUT SCH ×3 (05:17→22:23)
[2016-12-11] MEDS: GABAPENTIN 100 MG CAPSULE PO SCH ×3 (05:17→22:23)
[2016-12-11] MEDS: LANSOPRAZOLE 30 MG TAB.RAP.DR PO SCH (05:17)
[2016-12-11 06:41] LABS: ANION GAP 11 (5-19); BLOOD UREA NITROGEN 25 mg/dL (7-20); CALCIUM 9.1 mg/dL (8.4-10.2); CARBON DIOXIDE 24 mmol/L (22-30); CHLORIDE 101 mmol/L (98-107); CREATININE RESULT 0.98 mg/dL (0.52-1.25); GLUCOSE 165 mg/dL (75-110); MAGNESIUM 1.8 mg/dL (1.6-2.3); POTASSIUM 4.1 mmol/L (3.6-5.0); SODIUM 136.2 mmol/L (137-145)
[2016-12-11] MEDS: GLIPIZIDE 10 MG TABLET PO SCH ×2 (08:11→17:24)
[2016-12-11] MEDS: INSULIN LISPRO 100 UNIT/ML 3 ML VIAL SUBCUT SCH ×3 (08:11→17:28)
[2016-12-11] MEDS: METFORMIN HCL 500 MG TABLET PO SCH ×2 (08:11→17:29)
[2016-12-11] MEDS: INSULIN LISPRO 100 UNIT/ML 3 ML VIAL SUBCUT PRN ×2 (08:11→22:36)
[2016-12-11] MEDS: IPRATROPIUM/ALBUTEROL 0.5-2.5 MG/3 ML AMPUL NEB SCH ×4 (08:44→20:05)
[2016-12-11] MEDS: INSULIN GLARGINE,HUM.REC.ANLOG 300 UNIT/3 ML INSULN.PEN SUBCUT SCH (10:49)
[2016-12-11] MEDS: FLUTICASONE/SALMETEROL DISKUS 500-50 MCG/DOSE IH SCH ×2 (10:50→22:23)
[2016-12-11] MEDS: BACITRACIN ZINC OINTMENT 15 GM TP SCH (10:50)
[2016-12-11] MEDS: LISINOPRIL 10 MG TABLET PO SCH ×2 (10:51→22:23)
[2016-12-11] MEDS: DILTIAZEM HCL 120 MG CAP.SR.24H PO SCH ×2 (10:51→22:23)
[2016-12-11] MEDS: FLUTICASONE NASAL SPRAY 50 MCG/SPRY 120 SPRAY/16 GM NASL SCH ×2 (10:52→22:23)
[2016-12-11] MEDS: PREDNISONE 20 MG TABLET PO SCH (10:52)
[2016-12-11] MEDS: FUROSEMIDE 20 MG TABLET PO SCH (10:52)
--- NOTE | 2016-12-11 11:28 | PDOC PROGRESS REPORT ---
Subjective Progress Note for:: 12/11/16 Subjective:: Patient seen on rounds. She is sitting in bedside chair. She continues to have a nonproductive cough. She is also complaining of right lower quadrant abdominal pain. She states she does have some mild nausea associated with it. She denies fever or chills. She denies dysuria. She states her last menstrual period was approximately 3 weeks ago. She denies any arthralgias or myalgias. Remaining review of systems are negative. Physical Exam Vital Signs: Temp Pulse Resp BP Pulse Ox 97.8 F 76 18 110/64 97 12/11/16 04:24 12/11/16 08:47 12/11/16 08:47 12/11/16 04:24 12/11/16 08:47 Intake & Output 12/10/16 12/11/16 12/12/16 06:59 06:59 06:59 Intake Total 3810 3466 Output Total 4000 7500 Balance -190 -4034 Weight 143.8 kg 145.2 kg General appearance: PRESENT: no acute distress, morbidly obese, well-developed, well-nourished Head exam: PRESENT: atraumatic, normocephalic Eye exam: PRESENT: conjunctiva pink, EOMI, PERRLA. ABSENT: scleral icterus Ear exam: PRESENT: normal external ear exam Mouth exam: PRESENT: moist, tongue midline Neck exam: ABSENT: carotid bruit, JVD, lymphadenopathy, thyromegaly Respiratory exam: PRESENT: rhonchi, symmetrical, unlabored. ABSENT: rales, wheezes Cardiovascular exam: PRESENT: RRR. ABSENT: diastolic murmur, rubs, systolic murmur Pulses: PRESENT: normal dorsalis pedis pul Vascular exam: PRESENT: normal capillary refill GI/Abdominal exam: PRESENT: guarding - right lower quadrant pain,, normal bowel sounds, rebound, soft, tenderness. ABSENT: distended, mass, organolmegaly Rectal exam: PRESENT: deferred Extremities exam: PRESENT: full ROM. ABSENT: calf tenderness, clubbing, pedal edema Musculoskeletal exam: PRESENT: ambulatory, full ROM Neurological exam: PRESENT: alert, awake, oriented to person, oriented to place , oriented to time, oriented to situation, CN II-XII grossly intact. ABSENT: motor sensory deficit Psychiatric exam: PRESENT: flat affect Skin exam: PRESENT: dry, intact, warm. ABSENT: cyanosis, rash Results Laboratory Results: 12/10/16 06:05 12/11/16 05:42 12/11/16 05:42 Sodium 136.2 L Potassium 4.1 Chloride 101 Carbon Dioxide 24 Anion Gap 11 BUN 25 H Creatinine 0.98 Est GFR ( Amer) > 60 Est GFR (Non-Af Amer) > 60 Glucose 165 H Calcium 9.1 Magnesium 1.8 12/10/16 06:05 NT-Pro-B Natriuret Pep 112 Impressions: Chest X-Ray 12/09/16 00:00 IMPRESSION: NO SIGNIFICANT RADIOGRAPHIC FINDING IN THE CHEST. Assessment & Plan - Diagnosis (1) Acute respiratory failure with hypoxia Is this a current diagnosis for this admission?: Yes Plan: Improving with nebulizers and steroids. She has increasing leucocytosis (2) Asthma exacerbation Is this a current diagnosis for this admission?: Yes Plan: As above. Will add azithromycin due to increasing leucocytosis and continued harsh cough. (3) Acute diastolic (congestive) heart failure Is this a current diagnosis for this admission?: Yes Plan: Presently patient is euvolemic (4) Hyponatremia Is this a current diagnosis for this admission?: Yes (5) Insulin dependent type 2 diabetes mellitus, uncontrolled Is this a current diagnosis for this admission?: Yes (6) Peripheral neuropathy Qualifiers: Peripheral neuropathy type: polyneuropathy, unspecified Qualified Code(s): G62.9 - Polyneuropathy, unspecified Is this a current diagnosis for this admission?: Yes (7) Morbid obesity with BMI of 40.0-44.9, adult Is this a current diagnosis for this admission?: Yes Plan: Counseled. She would benefit from weight loss (8) Abdominal pain Qualifiers: Abdominal location: right lower quadrant Qualified Code(s): R10.31 - Right lower quadrant pain Is this a current diagnosis for this admission?: Yes Plan: Will obtain CT scan to rule out appendicitis. Has increasing leukocytosis, most likely from prednisone therapy. - Time Time Spent with patient: 25-34 minutes Critical Time spent with patient: 15-24 minutes Medications reviewed and adjusted accordingly: Yes Anticipated discharge: Home with Homehealth Within: within 24 hours - Inpatient Certification Based on my medical assessment, after consideration of the patient's comorbidities, presenting symptoms, or acuity I expect that the services needed warrant INPATIENT care.: Yes I certify that my determination is in accordance with my understanding of Medicare's requirements for reasonable and necessary INPATIENT services [42 CFR 412.3e].: Yes
[2016-12-11 15:54] LABS: APPEARANCE,URINE CLEAR; BILIRUBIN,URINE NEGATIVE (NEGATIVE); GLUCOSE, URINE NEGATIVE (NEGATIVE); KETONES,URINE NEGATIVE (NEGATIVE); LEUKOCYTE ESTERASE,URINE TRACE (NEGATIVE); NITRITE,URINE NEGATIVE (NEGATIVE); PROTEIN,URINE NEGATIVE (NEGATIVE); URINE SPECIFIC GRAVITY 1.011; UROBILINOGEN,URINE NEGATIVE mg/dL (<2.0)
--- NOTE | 2016-12-11 17:02 | RADIOLOGY REPORT (SQ) ---
EXAM DESCRIPTION: CT ABDOMEN WITH IV ORAL CONT COMPLETED DATE/TIME: 12/11/2016 4:37 pm REASON FOR STUDY: Right lower quadrant pain, + rebound, leucocytosis COMPARISON: 10/02/2016 TECHNIQUE: CT scan of the abdomen performed with intravenous and with oral contrast using helical sc anning technique with dynamic intravenous contrast injection. Images reviewed with lung, soft tissue, and bone windows. Reconstructed coronal and sagittal MPR images reviewed. Delayed images for evaluat ion of the urinary system also acquired and evaluated. All images stored on PACS. All CT scanners at this facility use dose modulation, iterative reconstruc tion, and/or weight based dosing when appropriate to reduce radiation dose to as low as reasonably ac hievable (ALARA). [facility]: Dose Right [facility]: CareDose [facility]: Dose Right [facility]: Teradose 4D [facility]: [employer] CONTRAST TYPE AND DOSE: contrast/concentration: Isovue 370.00 mg/ml; Total Contrast Delivered: 100.0 ml; Total Saline Delivered: 72.0 ml RENAL FUNCTION: BUN 25; creatinine 0.98 RADIATION DOSE: Up-to-date CT equipment and radiation dose reduction techniques were employed. CTDIv ol: 21.1 - 21.1 mGy. DLP: 2351 mGy-cm. . LIMITATIONS: None. FINDINGS: LOWER CHEST: No significant findings. No nodules or infiltrates. LIVER: Normal size. Diffusely decreased attenuation, consistent with hepatic steatosis. No focal ma sses. SPLEEN: Normal size. No focal lesions. PANCREAS: No masses. No significant calcifications. No adjacent inflammation or peripancreatic fluid collections. Pancreatic duct not dilated. GALLBLADDER: Surgically absent. ADRENAL GLANDS: No significant masses or asymmetry. RIGHT KIDNEY AND URETER: No solid masses. No significant calcifications. No hydronephrosis or hyd roureter. LEFT KIDNEY AND URETER: No solid masses. No significant calcifications. No hydronephrosis or hydr oureter. AORTA AND VESSELS: No aneurysm. No dissection. Renal arteries, SMA, celiac without stenosis. RETROPERITONEUM: No retroperitoneal adenopathy, hemorrhage or masses. BOWEL AND PERITONEAL CAVITY: No masses or inflammatory changes. No free fluid or peritoneal masses. APPENDIX: Normal. ABDOMINAL WALL: No masses. No hernias. BONES: No significant or acute findings. OTHER: No other significant finding. IMPRESSION: STATUS POST CHOLECYSTECTOMY. OTHERWISE UNREMARKABLE CT OF THE ABDOMEN WITH INTRAVENOUS CONTRAST. TECHNICAL DOCUMENTATION: JOB ID: [id number] Quality ID # [id number]: Final reports with documentation of one or more dose reduction techniques (e.g., Au tomated exposure control, adjustment of the mA and/or kV according to patient size, use of iterative reconstruction technique) 2010 [employer]- All Rights Reserved
[2016-12-11] MEDS ORDERED: LOPERAMIDE HCL 2 MG CAPSULE PO ONE (20:15)
[2016-12-12] MEDS ORDERED: DICYCLOMINE HCL 20 MG TABLET PO ONE (02:00)
[2016-12-12] MEDS ORDERED: DICYCLOMINE HCL 20 MG TABLET ONE (02:52)
[2016-12-12 04:43] LABS: ABSOLUTE EOSINOPHILS # (AUTO) 0.1 10^3/uL (0.0-0.6); ABSOLUTE LYMPHOCYTES (AUTO) 3.4 10^3/uL (0.5-4.7); BASOPHILS % (AUTO) 0.2 % (0-2); HEMOGLOBIN 11.9 g/dL (12.0-15.5); HGB HCT DIFFERENCE -0.3; LYMPHOCYTES % (AUTO) 23.2 % (13-45); MEAN CORPUSCULAR HEMOGLOBIN 23.8 pg (27.0-33.4); MEAN CORPUSCULAR VOLUME 72 fl (80-97); MONOCYTES % (AUTO) 6.7 % (3-13); RED BLOOD COUNT 4.99 10^6/uL (3.72-5.28); RED CELL DISTRIBUTION WIDTH 16.9 % (11.5-14.0); SEGMENTED NEUTROPHILS % (AUTO) 68.9 % (42-78); WHITE BLOOD COUNT 14.5 10^3/uL (4.0-10.5)
[2016-12-12] MEDS: HEPARIN SOD (PORCINE) 5,000 UNIT/ML 1 ML SYRINGE SUBCUT SCH ×3 (06:22→22:16)
[2016-12-12] MEDS: GABAPENTIN 100 MG CAPSULE PO SCH ×3 (06:22→22:17)
[2016-12-12] MEDS: LANSOPRAZOLE 30 MG TAB.RAP.DR PO SCH (06:22)
[2016-12-12] MEDS: INSULIN LISPRO 100 UNIT/ML 3 ML VIAL SUBCUT SCH ×3 (08:28→16:27)
[2016-12-12] MEDS: GLIPIZIDE 10 MG TABLET PO SCH ×2 (08:28→16:27)
[2016-12-12] MEDS: METFORMIN HCL 500 MG TABLET PO SCH ×2 (08:29→16:27)
[2016-12-12] MEDS: IPRATROPIUM/ALBUTEROL 0.5-2.5 MG/3 ML AMPUL NEB SCH ×4 (08:45→19:48)
[2016-12-12] MEDS ORDERED: AZITHROMYCIN 250 MG TABLET PO SCH (10:00)
[2016-12-12] MEDS: BACITRACIN ZINC OINTMENT 15 GM TP SCH (10:45)
[2016-12-12] MEDS: FLUTICASONE/SALMETEROL DISKUS 500-50 MCG/DOSE IH SCH ×2 (10:46→22:17)
[2016-12-12] MEDS: FUROSEMIDE 20 MG TABLET PO SCH (10:46)
[2016-12-12] MEDS: FLUTICASONE NASAL SPRAY 50 MCG/SPRY 120 SPRAY/16 GM NASL SCH ×2 (10:46→22:17)
[2016-12-12] MEDS: PREDNISONE 20 MG TABLET PO SCH (10:46)
[2016-12-12] MEDS: INSULIN GLARGINE,HUM.REC.ANLOG 300 UNIT/3 ML INSULN.PEN SUBCUT SCH (10:47)
[2016-12-12] MEDS: LISINOPRIL 10 MG TABLET PO SCH ×2 (10:48→22:16)
[2016-12-12] MEDS: DILTIAZEM HCL 120 MG CAP.SR.24H PO SCH ×2 (10:48→22:17)
[2016-12-12] MEDS: INSULIN LISPRO 100 UNIT/ML 3 ML VIAL SUBCUT PRN ×3 (11:51→22:49)
[2016-12-12] MEDS ORDERED: INFLUENZA ADLT QUAD (36MOS+) 2017-18 VAC 0.5 ML SYR IM PRN (13:11)
[2016-12-12] MEDS: LACTOBACILLUS ACIDOPHILUS 250 MG TAB PO SCH (17:11)
[2016-12-12] MEDS: DOXYCYCLINE HYCLATE 100 MG TABLET PO SCH (22:17)
[2016-12-13 04:29] LABS: ABSOLUTE BASOPHILS # (AUTO) 0.1 10^3/uL (0.0-0.2); ABSOLUTE EOSINOPHILS # (AUTO) 0.1 10^3/uL (0.0-0.6); ABSOLUTE LYMPHOCYTES (AUTO) 3.4 10^3/uL (0.5-4.7); ABSOLUTE NEUT (AUTO) 11.6 10^3/uL (1.7-8.2); BASOPHILS % (AUTO) 0.5 % (0-2); EOSINOPHILS % (AUTO) 0.7 % (0-6); HEMATOCRIT 34.8 % (36.0-47.0); HEMOGLOBIN 11.5 g/dL (12.0-15.5); HGB HCT DIFFERENCE -0.3; LYMPHOCYTES % (AUTO) 20.7 % (13-45); MEAN CORPUSCULAR HEMOGLOBIN 23.8 pg (27.0-33.4); MEAN CORPUSCULAR VOLUME 72 fl (80-97); MONOCYTES % (AUTO) 6.4 % (3-13); RED BLOOD COUNT 4.82 10^6/uL (3.72-5.28); RED CELL DISTRIBUTION WIDTH 16.8 % (11.5-14.0); SEGMENTED NEUTROPHILS % (AUTO) 71.7 % (42-78); WHITE BLOOD COUNT 16.2 10^3/uL (4.0-10.5)
[2016-12-13] MEDS: LANSOPRAZOLE 30 MG TAB.RAP.DR PO SCH (06:30)
[2016-12-13] MEDS: HEPARIN SOD (PORCINE) 5,000 UNIT/ML 1 ML SYRINGE SUBCUT SCH (06:30)
[2016-12-13] MEDS: GABAPENTIN 100 MG CAPSULE PO SCH (06:30)
[2016-12-13] MEDS: IPRATROPIUM/ALBUTEROL 0.5-2.5 MG/3 ML AMPUL NEB SCH ×2 (07:44→11:37)
[2016-12-13] MEDS: METFORMIN HCL 500 MG TABLET PO SCH (07:48)
[2016-12-13] MEDS: GLIPIZIDE 10 MG TABLET PO SCH (08:03)
[2016-12-13] MEDS: INSULIN LISPRO 100 UNIT/ML 3 ML VIAL SUBCUT SCH ×2 (08:03→11:59)
[2016-12-13] MEDS: INSULIN GLARGINE,HUM.REC.ANLOG 300 UNIT/3 ML INSULN.PEN SUBCUT SCH (09:42)
[2016-12-13] MEDS: FLUTICASONE/SALMETEROL DISKUS 500-50 MCG/DOSE IH SCH (09:42)
[2016-12-13] MEDS: FLUTICASONE NASAL SPRAY 50 MCG/SPRY 120 SPRAY/16 GM NASL SCH (09:42)
[2016-12-13] MEDS: FUROSEMIDE 20 MG TABLET PO SCH (09:43)
[2016-12-13] MEDS: PREDNISONE 20 MG TABLET PO SCH (09:43)
[2016-12-13] MEDS: DOXYCYCLINE HYCLATE 100 MG TABLET PO SCH (09:43)
[2016-12-13] MEDS: BACITRACIN ZINC OINTMENT 15 GM TP SCH (09:44)
[2016-12-13] MEDS: LACTOBACILLUS ACIDOPHILUS 250 MG TAB PO SCH (09:44)
[2016-12-13] MEDS: LISINOPRIL 10 MG TABLET PO SCH (09:45)
[2016-12-13] MEDS: DILTIAZEM HCL 120 MG CAP.SR.24H PO SCH (09:45)
[2016-12-13] MEDS ORDERED: FLUCONAZOLE 100 MG TABLET PO SCH (10:00)
[2016-12-13] MEDS: INSULIN LISPRO 100 UNIT/ML 3 ML VIAL SUBCUT PRN (12:00)
[2016-12-13 12:51] VITALS: BP 98/62
--- NOTE | 2016-12-13 14:12 | PDOC DISCHARGE SUMMARY ---
General - Admit/Disc Date/PCP Admission Date/Primary Care Provider: 12/09/16 00:46 Discharge Date: 12/13/16 - Discharge Diagnosis (1) Acute and chronic respiratory failure Is this a current diagnosis for this admission?: Yes Summary: Secondary to asthma exacerbation (2) Asthma exacerbation Is this a current diagnosis for this admission?: Yes Summary: Improved with steroids. (3) Acute diastolic (congestive) heart failure Is this a current diagnosis for this admission?: Yes Summary: Acute on chronic congestive heart failure improved with blood pressure control. (4) GERD (gastroesophageal reflux disease) Is this a current diagnosis for this admission?: Yes (5) Insulin dependent type 2 diabetes mellitus, uncontrolled Is this a current diagnosis for this admission?: Yes (6) Hyperlipidemia Is this a current diagnosis for this admission?: Yes (7) Morbid obesity with BMI of 40.0-44.9, adult Is this a current diagnosis for this admission?: Yes (8) TAMEKA (obstructive sleep apnea) Is this a current diagnosis for this admission?: Yes (9) Accelerated hypertension Is this a current diagnosis for this admission?: Yes - Additional Information Resuscitation Status: Full Code Discharge Diet: Diabetic Discharge Activity: Activity As Tolerated Home Medications: Albuterol Sulfate [Ventolin HFA MDI 18 GM] 2 puff IH Q8H PRN 12/09/16 Esomeprazole Magnesium [Nexium 24Hr] 20 mg PO DAILY 12/09/16 Fluticasone/Salmeterol [Advair 500-50 Diskus 28 Dose] 1 inh IH Q12 12/09/16 Glipizide [Glucotrol 10 mg Tablet] 10 mg PO BID 12/09/16 Liraglutide [Victoza 2-Bryce] 1.6 mg SQ Q12 12/09/16 Lisinopril [Prinivil] 20 mg PO BID 12/09/16 Metformin HCl [Glucophage] 1,000 mg PO BID 12/09/16 Metoprolol Tartrate [Lopressor 100 mg Tablet] 100 mg PO Q12 12/09/16 Calcium Carbonate [Tums Chewable 500 mg Tab.chew] 500 mg PO Q6HP PRN tab.chew 12/13/16 Diltiazem HCl [Cardizem Cd 120 mg Capsule] 120 mg PO Q12 #30 cap.sr.24h Flu Vacc [id number] 36Mos Up/Pf [Fluzone Adlt Quad [id number] Vac 0.5 ml Syr] 0.5 ml IM .DISCHARGE PRN disp.syrin 12/13/16 Insulin Glargine,Hum.rec.anlog [Lantus Insulin 100 Unit/mL] 60 unit SUBCUT DAILY #1 insuln.pen 12/13/16 Prednisone [Deltasone 20 mg Tablet] 10 mg PO DAILY #39 tablet 12/13/16 History of Present Illness History of Present Illness: DAYTON MENDOZA is a 36 year old female with history diabetes mellitus, hypertension, diastolic heart failure and obstructive sleep apnea who presents with a 48 hour history of shortness of breath, wheezing. The patient has a history of asthma. She has not been around any of her known triggers. She denies a productive cough. She denies any fevers or chills or chest pain. She also denies any orthopnea or PND. She is admitted for treatment of acute asthma exacerbation. Hospital Course Hospital Course: 36-year-old female who presented with acute asthma exacerbation with acute respiratory failure secondary to that. The patient was treated with IV steroids and nebulizers. Patient also was given antibiotics. Patient had no evidence for pneumonia on this exam. The patient improved and on the day of discharge she was back to her baseline respiratory status. The patient will be sent home on a course of prednisone. Her other medical problems were stable during this hospitalization. Physical Exam Vital Signs: Temp Pulse Resp BP Pulse Ox 98.4 F 96 18 98/62 L 95 12/13/16 12:48 12/13/16 12:48 12/13/16 12:48 12/13/16 12:48 12/13/16 12:48 Intake & Output 12/12/16 12/13/16 12/14/16 06:59 06:59 06:59 Intake Total 3865 2286 Output Total 3833 1700 Balance 1365 586 Weight 146.7 kg 145 kg General appearance: PRESENT: no acute distress Eye exam: PRESENT: conjunctiva pink. ABSENT: scleral icterus Ear exam: PRESENT: normal external ear exam Mouth exam: PRESENT: moist, tongue midline Neck exam: ABSENT: JVD Respiratory exam: PRESENT: clear to auscultation russell. ABSENT: rales, rhonchi, wheezes Cardiovascular exam: PRESENT: RRR. ABSENT: diastolic murmur, rubs, systolic murmur GI/Abdominal exam: PRESENT: normal bowel sounds, soft. ABSENT: distended, guarding, mass, organolmegaly, rebound, tenderness Extremities exam: ABSENT: calf tenderness, clubbing, pedal edema Neurological exam: PRESENT: alert, awake, oriented to person, oriented to place , oriented to time, oriented to situation, CN II-XII grossly intact. ABSENT: motor sensory deficit Psychiatric exam: PRESENT: appropriate affect Skin exam: PRESENT: dry, intact, warm. ABSENT: cyanosis, rash Results Laboratory Results: 12/13/16 04:00 12/11/16 05:42 12/13/16 04:00 WBC 16.2 H RBC 4.82 Hgb 11.5 L Hct 34.8 L MCV 72 L MCH 23.8 L MCHC 33.0 RDW 16.8 H Plt Count 258 Seg Neutrophils % 71.7 Lymphocytes % 20.7 Monocytes % 6.4 Eosinophils % 0.7 Basophils % 0.5 Absolute Neutrophils 11.6 H Absolute Lymphocytes 3.4 Absolute Monocytes 1.0 Absolute Eosinophils 0.1 Absolute Basophils 0.1 12/10/16 06:05 NT-Pro-B Natriuret Pep 112 Impressions: Chest X-Ray 12/09/16 00:00 IMPRESSION: NO SIGNIFICANT RADIOGRAPHIC FINDING IN THE CHEST. Abdomen CT 12/11/16 00:00 IMPRESSION: STATUS POST CHOLECYSTECTOMY. OTHERWISE UNREMARKABLE CT OF THE ABDOMEN WITH INTRAVENOUS CONTRAST. Qualifiers PATEINT BEING DISCHARGED WITH ANY OF THE FOLLOWING DIAGNOSIS?: No Plan Discharge Plan: Patient is discharged home in stable condition. she will follow-up with primary care in 1-2 weeks. Time Spent: Less than 30 Minutes
== END 2016-12-13 13:18 | disposition home or self-care (01) | DRG 189 ==
LOC: ER 22:40 → EH 12-09 00:46 → UNDOADMIN 12-09 00:51 → 5 12-09 01:54
PROVIDERS: ADMIT Internal Medicine; ATTEND Internal Medicine
PROC: 3E0234Z Introduction of Serum, Toxoid and Vaccine into Muscle, Percutaneous Approach (ICD-10-PCS; principal; 2016-12-13)
DX: J96.21 Acute and chronic respiratory failure with hypoxia (principal); I50.33 Acute on chronic diastolic (congestive) heart failure; J45.901 Unspecified asthma with (acute) exacerbation; Z68.41 Body mass index [BMI] 40.0-44.9, adult; E87.1 Hypo-osmolality and hyponatremia; L02.215 Cutaneous abscess of perineum; I11.0 Hypertensive heart disease with heart failure; E78.5 Hyperlipidemia, unspecified; K21.9 Gastro-esophageal reflux disease without esophagitis; E11.69 Type 2 diabetes mellitus with other specified complication; G62.9 Polyneuropathy, unspecified; R10.31 Right lower quadrant pain; F41.8 Other specified anxiety disorders; F31.9 Bipolar disorder, unspecified; E66.01 Morbid (severe) obesity due to excess calories; Z88.0 Allergy status to penicillin; Z88.6 Allergy status to analgesic agent; Z88.1 Allergy status to other antibiotic agents; Z91.030 Bee allergy status; Z23 Encounter for immunization
CPT/HCPCS: 36415; 71010; 71020; 74160; 80048; 81001; 82962; 83036; 83735; 83880; 85025; 87070; 87205; 87493; 90686; 93005; 93010; 94640; 94660; 96365; 96375; 99291; J0360; J1644; J1815; J1885; J1940; J1956; J2930; J3475; J3490; J7512; J7620

== ENCOUNTER 2017-04-20 19:51 | Emergency (ER) | payer SELFPAY ==
[2017-04-20] MEDS ORDERED: IPRATROPIUM/ALBUTEROL 0.5-2.5 MG/3 ML AMPUL NEB ONE (20:19)
[2017-04-20] MEDS ORDERED: METHYLPREDNISOLONE INJ 125 MG/2 ML SDV IV ONE (20:19)
[2017-04-20 20:27] LABS: ABSOLUTE LYMPHOCYTES (AUTO) 1.5 10^3/uL (0.5-4.7); ABSOLUTE MONOCYTES (AUTO) 0.7 10^3/uL (0.1-1.4); ABSOLUTE NEUT (AUTO) 7.3 10^3/uL (1.7-8.2); BASOPHILS % (AUTO) 0.5 % (0-2); EOSINOPHILS % (AUTO) 0.5 % (0-6); HEMATOCRIT 36.1 % (36.0-47.0); HEMOGLOBIN 11.7 g/dL (12.0-15.5); LYMPHOCYTES % (AUTO) 15.3 % (13-45); MEAN CORPUSCULAR HEMOGLOBIN 22.5 pg (27.0-33.4); MEAN CORPUSCULAR HGB CONC 32.5 g/dL (32.0-36.0); MEAN CORPUSCULAR VOLUME 69 fl (80-97); MONOCYTES % (AUTO) 7.5 % (3-13); PLATELET COUNT 257 10^3/uL (150-450); RED BLOOD COUNT 5.21 10^6/uL (3.72-5.28); RED CELL DISTRIBUTION WIDTH 18.1 % (11.5-14.0); SEGMENTED NEUTROPHILS % (AUTO) 76.2 % (42-78); TOTAL CELLS COUNTED % (AUTO) 100 %; WHITE BLOOD COUNT 9.5 10^3/uL (4.0-10.5)
[2017-04-20] MEDS ORDERED: ALBUTEROL SULFATE 0.083% NEB 2.5 MG/3 ML AMPUL NEB SCH (20:34)
[2017-04-20 20:45] LABS: ALANINE AMINOTRANSFERASE 30 U/L (9-52); ALBUMIN 3.8 g/dL (3.5-5.0); ALKALINE PHOSPHATASE 57 U/L (38-126); ANION GAP 10 (5-19); ASPARTATE AMINO TRANSFERASE 19 U/L (14-36); BILIRUBIN,DIRECT 0.3 mg/dL (0.0-0.4); BILIRUBIN,TOTAL 0.5 mg/dL (0.2-1.3); BLOOD UREA NITROGEN 7 mg/dL (7-20); CALCIUM 9.1 mg/dL (8.4-10.2); CARBON DIOXIDE 21 mmol/L (22-30); CHLORIDE 106 mmol/L (98-107); GLUCOSE 171 mg/dL (75-110); SODIUM 136.8 mmol/L (137-145); TOTAL PROTEIN 6.4 g/dL (6.3-8.2)
--- NOTE | 2017-04-20 21:05 | RADIOLOGY REPORT (SQ) ---
EXAM DESCRIPTION: CHEST SINGLE VIEW COMPLETED DATE/TIME: 04/20/2017 8:32 pm REASON FOR STUDY: difficulty breathing COMPARISON: 12/09/2016 EXAM PARAMETERS: NUMBER OF VIEWS: One view. TECHNIQUE: Single frontal radiographic view of the chest acquired. RADIATION DOSE: NA LIMITATIONS: None. FINDINGS: LUNGS AND PLEURA: No opacities, masses or pneumothorax. No pleural effusion. MEDIASTINUM AND HILAR STRUCTURES: No masses. Contour normal. HEART AND VASCULAR STRUCTURES: Stable heart size. BONES: No acute findings. HARDWARE: None in the chest. OTHER: No other significant finding. IMPRESSION: NO ACUTE RADIOGRAPHIC FINDING IN THE CHEST. TECHNICAL DOCUMENTATION: JOB ID: [id number] [employer]- All Rights Reserved
--- NOTE | 2017-04-20 21:27 | EKG REPORT ---
SEVERITY:- BORDERLINE ECG - SINUS TACHYCARDIA BORDERLINE T WAVE ABNORMALITIES : Confirmed by: Tan Mobley 20-Apr-2017 21:26:48
[2017-04-20 22:10] LABS: APPEARANCE,URINE SLIGHTLY-CLOUDY; BILIRUBIN,URINE NEGATIVE (NEGATIVE); COLOR,URINE YELLOW; GLUCOSE, URINE 50 mg/dL (NEGATIVE); KETONES,URINE NEGATIVE (NEGATIVE); LEUKOCYTE ESTERASE,URINE TRACE (NEGATIVE); NITRITE,URINE NEGATIVE (NEGATIVE); PROTEIN,URINE NEGATIVE (NEGATIVE); URINE SPECIFIC GRAVITY 1.011; UROBILINOGEN,URINE NEGATIVE mg/dL (<2.0)
[2017-04-20] MEDS: MAGNESIUM SULFATE/D5W 1 GM/100 ML RTUPB IV SCH ×2 (22:45→23:30)
[2017-04-20 23:04] LABS: VENOUS BLOOD BASE EXCESS -0.4 mmol/L; VENOUS BLOOD HCO3 21.4 mmol/L (20-32); VENOUS BLOOD PCO2 27.1 mmHg (35-63); VENOUS BLOOD PH 7.52 (7.30-7.42)
[2017-04-20] MEDS ORDERED: NORMAL SALINE 1000 ML 1,000 ML IV ONE (23:35)
--- NOTE | 2017-04-20 23:37 | ER Document Report ---
ED General - General Chief Complaint: Shortness Of Breath Stated Complaint: DIFFICULTY BREATHING Time Seen by Provider: 04/20/17 22:41 Notes: Patient is a pleasant 36-year-old female with a history of asthma who presents with complaint of difficulty breathing. She also had a fever of 101.9 at home yesterday. No vomiting. No diarrhea. She says her inhaler at home has not been working. She comes in with some distress via ambulance. She did take medications at home to help treat her fever before coming in to the ER. TRAVEL OUTSIDE OF THE [place] IN LAST 30 DAYS: No - Related Data Allergies/Adverse Reactions: aspirin Allergy (Intermediate, Verified 08/20/16 19:19) amoxicillin [Amoxicillin] Allergy (Verified 08/20/16 19:19) Penicillins Allergy (Verified 08/20/16 19:19) Bees/Wasp Allergy (Uncoded 08/20/16 19:19) Past Medical History - Social History Smoking Status: Unknown if Ever Smoked Chew tobacco use (# tins/day): No Frequency of alcohol use: Occasional Drug Abuse: None Family History: Hypertension Patient has suicidal ideation: No Patient has homicidal ideation: No - Past Medical History Cardiac Medical History: Reports: Hx Hypercholesterolemia, Hx Hypertension Pulmonary Medical History: Reports: Hx Asthma, Hx Pneumonia Neurological Medical History: Denies: Hx Seizures Endocrine Medical History: Reports: Hx Diabetes Mellitus Type 2. Denies: Hx Diabetes Mellitus Type 1 Renal/ Medical History: Reports: Hx Kidney Stones. Denies: Hx Peritoneal Dialysis GI Medical History: Denies: Hx Cirrhosis, Hx Crohn's Disease, Hx Hepatitis Psychiatric Medical History: Reports: Hx Anxiety, Hx Bipolar Disorder, Hx Depression Infectious Medical History: Denies: Hx Hepatitis Past Surgical History: Reports: Hx Abdominal Surgery - hernia, Hx Cholecystectomy, Hx Herniorrhaphy, Hx Umbilical Hernia - Immunizations Immunizations up to date: No Hx Diphtheria, Pertussis, Tetanus Vaccination: Yes Hx Pneumococcal Vaccination: 07/28/15 Review of Systems - Review of Systems Notes: My Normal Review Basic REVIEW OF SYSTEMS: CONSTITUTIONAL : Fever. EENT: Some Congestion. CARDIOVASCULAR: Denies chest pain. RESPIRATORY: Difficulty breathing. Wheezing. GASTROINTESTINAL: Denies abdominal pain. Denies nausea, vomiting, or diarrhea. Denies constipation. Last BM: GENITOURINARY: Denies difficulty urinating, painful urination, burning, frequency, or blood in urine. MUSCULOSKELETAL: Denies neck or back pain or joint pain or swelling. SKIN: Denies rash or skin lesions. NEUROLOGICAL: Denies altered mental status or loss of consciousness. Denies headache. Denies weakness or paralysis or loss of use of either side. Denies problems with gait or speech. Denies sensory or motor loss. ALL OTHER SYSTEMS REVIEWED AND NEGATIVE. Physical Exam - Vital signs Vitals: BP Pulse Ox 134/97 H 96 04/20/17 20:13 04/20/17 20:13 - Notes Notes: General Appearance: Well nourished, alert, cooperative, no acute distress, no obvious discomfort. Vitals: reviewed, See vital signs table. Head: no swelling or tenderness to the head Eyes: PERRL, EOMI, Conjuctiva clear Mouth: No decreasd moisture Throat: No tonsillar inflammation, Neck: Supple, no neck tenderness, No thyromegaly Lungs: Diffuse wheezing with fair air exchange Heart: Tachycardic rate, Regular rythm, No murmur, no rub Abdomen: Normal BS, soft, No rigidity, No abdominal tenderness, No guarding, no rebound, no abdominal masses, no organomegaly Extremities: strength 5/5 in all extremities, good pulses in all extremities, no swelling or tenderness in the extremities, no edema. Skin: warm, dry, appropriate color, no rash Neuro: speech clear, oriented x 3, normal affect, responds appropriately to questions. Course - Re-evaluation Re-evalutation: 04/20/17 23:36 On my evaluation the patient her lung adams are clear for just some very mild right-sided rhonchi, But she did receive breathing treatments earlier. Despite her lung adams being mostly clear and having good air movement she still tachycardic, tachypneic, and hypoxemic. I therefore obtain a d-dimer. D-dimer is just barely positive. Will obtain a CTA to make sure is no evidence of PE. 04/21/17 02:[address] scan is normal. Clinically she certainly looks a lot better. Her tachypnea is gone. I removed her oxygen and will make sure she does not become hypoxic. Her heart rate is normal. She says she feels much better. Her lung adams are completely clear now. Monitor little bit longer than then attempt to ambulate her to make sure she does not get hypoxic and that she continues to look well. 04/21/17 04:11 Is able ambulate without difficulty. Oxygen saturation was 95-96% on room air while ambulating and she did not feel short of breath. Patient will be discharged home with steroids. She is encouraged to return to ER immediately if she has worsening difficulty breathing, fevers not responding to Tylenol, or she feels unwell. Patient agrees with plan will be discharged home. Dictation of this chart was performed using voice recognition software; therefore, there may be some unintended grammatical errors. - Vital Signs Vital signs: Temp Pulse Resp BP Pulse Ox 97.7 F 19 144/88 H 96 04/21/17 04:13 04/21/17 04:01 04/21/17 04:01 04/21/17 04:01 - Laboratory Result Diagrams: 04/20/17 20:12 04/20/17 20:12 Laboratory results interpreted by me: 04/20/17 04/20/17 04/20/17 20:12 20:12 20:12 Hgb 11.7 L MCV 69 L MCH 22.5 L RDW 18.1 H VBG pH 7.52 H VBG pCO2 27.1 L Sodium 136.8 L Carbon Dioxide 21 L Glucose 171 H Urine Glucose (UA) Ur Leukocyte Esterase 04/20/17 21:35 Hgb MCV MCH RDW VBG pH VBG pCO2 Sodium Carbon Dioxide Glucose Urine Glucose (UA) 50 H Ur Leukocyte Esterase TRACE H - EKG Interpretation by Me Additional EKG results interpreted by me: 04/21/17 04:15 EKG is reviewed and interpreted by me. EKG shows sinus tachycardia with rate of 120 bpm. No depression. Mild ST segment concave up elevation in leads V1 and V2 consistent with early repolarization of normality's. No ischemic T-wave inversions. MO interval, QRS duration, QTc intervals are within normal range. Old EKG for comparison is from December 08, 2016. Discharge - Discharge Clinical Impression: Bronchitis Condition: Good Disposition: HOME, SELF-CARE Additional Instructions: BRONCHITIS WITH BRONCHOSPASM (WHEEZING): You have bronchitis with bronchospasm (wheezing). Sometimes people develop wheezing with a chest cold. This occurs either because of an underlying tendency toward asthma or because the virus itself irritates the bronchial tubes. This irritation causes cough, shortness of breath, and wheezing. Emergency treatment of bronchospasm may include adrenaline shots or bronchodilator aerosol. You may feel lightheaded and have a rapid pulse for an hour or two. Rest and get plenty of fluids. At home, we'll treat you with a bronchodilator inhaler. Corticosteroids may be required for some patients. Until you recover, avoid chemical fumes, dusts, pollens, and exercising in very cold or dry air. If you smoke, stop now! Most cases of bronchitis get better without antibiotics. We prescribe antibiotics when we believe bacteria are damaging your airways, or if there's high risk the bronchitis will worsen into pneumonia. Increase your fluid intake. A cool mist humidifier may make your lungs more comfortable. An expectorant (cough medicine that loosens phlegm) can help. Repeated episodes of bronchitis and bronchospasm may result in lung damage -- for example, chronic bronchitis, recurrent pneumonias, or emphysema. If you develop a fever, increased wheezing, chest pain, or severe shortness of breath, you should contact the doctor immediately. INHALED BRONCHODILATORS: You have received a treatment of and/or prescription for an inhaled bronchodilator -- a medication which stimulates the airways in the lung to dilate. This improves the flow of air in asthma, bronchitis, and emphysema. These medicines have some similarity to adrenaline, and can cause similar side effects: shakiness, racing heart, and a sense of nervousness. These side effects decrease with time. Contact your doctor if these side effects are severe. Do not over-use the medicine. Too-frequent use of the inhaler may make it ineffective. Call your doctor if the inhaler is not controlling your symptoms at the prescribed doses. STEROID MEDICATION: You have been given an injection of or oral medicine of the cortisone/ steroid class. This medication is used to control inflammation or allergy. Chucho t is usually only given for a short period of time, until the acute process subsides. There are usually no side effects from short-term use of cortisone-like medications. Some persons feel an increased sense of well-being and are not sleepy at bedtime. Long-term use of cortisone medications is best avoided, unless required for a severe condition. If your condition does not remit, or relapses after the course of corticosteroid medication, you should consult your physician. SMOKING: If you smoke, you should stop smoking. The tar and chemicals in cigarette smoke are harmful. Smoking has been shown to cause: emphysema chronic bronchitis lung cancer mouth and throat cancer stomach and pancreas cancer premature aging defects In addition, smoking increases ear and lung infections in children of smokers. FOLLOW-UP CARE: If you have been referred to a physician for follow-up care, call the physician s office for an appointment as you were instructed or within the next two days. If you experience worsening or a significant change in your symptoms, notify the physician immediately or return to the Emergency Department at any time for re-evaluation. Please use the inhaler as 2 puffs every 2 hours as needed for wheezing. Please return to the ER immediately if you have difficulty breathing or wheezing that does not improve with you inhaler , recurrent high fevers, or if you feel that you are worsening. I have placed you on a steroid so you must keep a very close eye on your blood sugar. return to the ER if your blood sugar is consistently above 300 Prescriptions: Prednisone [Deltasone 20 mg Tablet] 1 tab PO DAILY #4 tablet Forms: Return to Work
[2017-04-20] MEDS ORDERED: ACETAMINOPHEN 325 MG TABLET PO ONE (23:41)
[2017-04-21 01:07] LABS: A TYPE INFLUENZA AG NEGATIVE (NEGATIVE); B INFLUENZA AG NEGATIVE (NEGATIVE)
--- NOTE | 2017-04-21 01:28 | RADIOLOGY REPORT (SQ) ---
EXAM DESCRIPTION: CTA of the chest per PE protocol with contrast. CLINICAL HISTORY: dyspnea COMPARISON: 05/17/2016 TECHNIQUE: CTA of the chest obtained following the uncomplicated intravenous administration of 100 mL [id number]. 3-D/MIP reformatted images of the chest available for evaluation. FINDINGS: Chest: Mediastinal windows demonstrate an inadequate contrast bolus. No large pulmonary embolus identified in the main, left, right pulmonary arteries. Evaluation of the lobar, segmental, and subsegmental pulmonary arterial branches is suboptimal due to contrast bolus timing. Visualized thyroid gland is unremarkable. Great vessels have normal anatomic configuration. Thoracic aorta is unremarkable. No cardiomegaly, coronary artery atherosclerosis, or pericardial effusion. No abnormalities of the esophagus. Scattered mediastinal lymph nodes are not enlarged by CT criteria. Lung windows demonstrate minimal right basilar discoid atelectasis. No lobar consolidation, pneumothorax, or pleural effusion. No abnormality of the visualized trachea. Limited images of the upper abdomen demonstrate no abnormalities of visualized liver, spleen, pancreas, or adrenal glands. Prior cholecystectomy. Minimal degenerative change of the spine. DLP: 1770.72 mGycm IMPRESSION: 1. No large pulmonary embolus identified. Suboptimal evaluation of the lobar, segmental, and subsegmental pulmonary arterial branches due to contrast bolus timing. This exam was performed according to our departmental dose-optimization program, which includes automated exposure control, adjustment of the mA and/or kV according to patient size and/or use of iterative reconstruction technique.
[2017-04-21 04:04] VITALS: BP 144/88
[2017-04-21] MEDS ORDERED: ALBUTEROL SULFATE HFA (90 MCG/PUFF) 8 GM MDI (1 MDI/ER DISP) IH ONE (04:14)
== END 2017-04-21 04:00 | disposition home or self-care (01) ==
LOC: ER 19:51
DX: J40 Bronchitis, not specified as acute or chronic (principal); R06.02 Shortness of breath; E78.00 Pure hypercholesterolemia, unspecified; E11.9 Type 2 diabetes mellitus without complications; I10 Essential (primary) hypertension; Z87.442 Personal history of urinary calculi; Z90.49 Acquired absence of other specified parts of digestive tract; Z88.0 Allergy status to penicillin; Z88.6 Allergy status to analgesic agent
CPT/HCPCS: 93005; 94640; 99285; 96361; 96375; 96365; 36415; 85025; 81025; 80053; 81001; 85379; 82803; 87804; 71045; 71275; 93010; J2930; J3475; J7030; J3490; J7620

== ENCOUNTER 2017-04-23 13:37 | Inpatient (IN) | payer SELFPAY ==
--- NOTE | 2017-04-23 15:32 | ER Document Report ---
ED General - General Mode of Arrival: Ambulatory Information source: Patient TRAVEL OUTSIDE OF THE [place] IN LAST 30 DAYS: No <SHMUEL PARSONS - Last Filed: 04/24/17 00:17> <CROW WELDON - Last Filed: 04/24/17 00:21> - General Chief Complaint: Shortness Of Breath Stated Complaint: SHORTNESS OF BREATH Time Seen by Provider: 04/23/17 15:10 Notes: Patient is a 36 year old female with a history of asthma, CHF, diabetes, hypertension, Afib, and bronchitis presents to the emergency department complaining of multiple symptoms including cough, nasal congestion, and shortness of breath onset yesterday. Patient states she was seen in the emergency department on 04/20/2017 and discharged with a diagnosis of bronchitis. Patient states her symptoms have been worsening and states her face feels like it is on fire. Patient states her shortness of breath is exacerbated when supine and relived with laying on her side. Patient also complains of some diarrhea. Patient denies any fevers. Patient states she has nebulizers at home although she feels they have not been working. (SHMUEL PARSONS) - Related Data Allergies/Adverse Reactions: amoxicillin [Amoxicillin] Allergy (Verified 04/23/17 14:38) Penicillins Allergy (Verified 04/23/17 14:38) Bees/Wasp Allergy (Uncoded 04/23/17 14:38) Past Medical History - General Information source: Patient - Social History Smoking Status: Never Smoker Frequency of alcohol use: None Drug Abuse: None Family History: Hypertension Patient has suicidal ideation: No Patient has homicidal ideation: No - Past Medical History Cardiac Medical History: Reports: Hx Congestive Heart Failure, Hx Hypercholesterolemia, Hx Hypertension Pulmonary Medical History: Reports: Hx Asthma, Hx COPD, Hx Pneumonia Endocrine Medical History: Reports: Hx Diabetes Mellitus Type 2 Renal/ Medical History: Reports: Hx Kidney Stones Psychiatric Medical History: Reports: Hx Anxiety, Hx Bipolar Disorder, Hx Depression Past Surgical History: Reports: Hx Abdominal Surgery - hernia, Hx Cholecystectomy, Hx Herniorrhaphy, Hx Umbilical Hernia - Immunizations Immunizations up to date: No Hx Diphtheria, Pertussis, Tetanus Vaccination: Yes Hx Pneumococcal Vaccination: 07/28/15 <SHMUEL PARSONS - Last Filed: 04/24/17 00:17> Review of Systems - Review of Systems Constitutional: No symptoms reported EENT: See HPI Respiratory: See HPI, Short of breath Gastrointestinal: No symptoms reported Genitourinary: No symptoms reported Female Genitourinary: No symptoms reported Musculoskeletal: No symptoms reported Skin: No symptoms reported Hematologic/Lymphatic: No symptoms reported Neurological/Psychological: No symptoms reported <SHMUEL PARSONS - Last Filed: 04/24/17 00:17> Physical Exam <JAQUELINESHMUEL CAMPOS - Last Filed: 04/24/17 00:17> <CROW WELDON - Last Filed: 04/24/17 00:21> - Vital signs Vitals: Temp Pulse Resp BP Pulse Ox 98.2 F 107 H 18 156/92 H 92 04/23/17 13:40 04/23/17 13:40 04/23/17 13:40 04/23/17 13:40 04/23/17 13:40 - Notes Notes: GENERAL: Alert, interacts well. No acute distress. HEAD: Normocephalic, atraumatic. EYES: Pupils equal, round, and reactive to light. Extraocular movements intact. ENT: Oral mucosa moist, tongue midline. NECK: Full range of motion. Supple. Trachea midline. LUNGS: Good air exchange despite expiratory wheezing. Dyspnea. HEART: Regular rate and rhythm. No murmurs, gallops, or rubs. ABDOMEN: Soft, RLQ tender to palpation. Non-distended. Bowel sounds present in all 4 quadrants. EXTREMITIES: Moves all 4 extremities spontaneously. No edema, radial and dorsalis pedis pulses 2/4 bilaterally. No cyanosis. NEUROLOGICAL: Alert and oriented x3. Normal speech. PSYCH: Normal affect, normal mood. SKIN: Warm, dry, normal turgor. No rashes or lesions noted. (JAQUELINESHMUEL CAMPOS) Course - Laboratory Result Diagrams: 04/23/17 13:46 04/23/17 13:46 <JAQUELINEJAMARIJAYME - Last Filed: 04/24/17 00:17> - Laboratory Result Diagrams: 04/23/17 13:46 04/23/17 13:46 <CROW WELDON - Last Filed: 04/24/17 00:21> - Re-evaluation Re-evalutation: 04/23/17 17:44 CBC shows leukocytosis of 12.6, platelets are normal, no anemia, CMP shows hyperglycemia but otherwise unremarkable, cardiac enzymes indeterminate 0.065, proBNP elevated at 897, EKG is nonischemic. Chest x-ray per radiology does not show any acute congestive heart failure however there is cardiomegaly. When I look at the chest x-ray does appear to have some vascular congestion or my interpretation. CT scan the abdomen and pelvis was ordered as she does have significant right lower quadrant tenderness palpation. This is negative for any acute intra-abdominal process, appendix was identified and is normal. Despite 2 breathing treatments of 5 mg of albuterol each patient continues to wheeze, continues to appear short of breath and is hypoxic at 92% on room air, drops to 90% when talking. I am quite concerned about her degree of hypoxia and discontinuing asthma exacerbation. Patient already had a CT angiogram of the chest 2 days ago. Patient will be admitted to Dr. Linda Briceño of the hospitalist service. She thinks the patient will be an observation patient. Will decide on what unit the patient will go to after she has seen her. 04/23/17 17:46 Blood pressure will continue to be followed as an inpatient. (CROW WELDON) - Vital Signs Vital signs: Temp Pulse Resp BP Pulse Ox 98.2 F 107 H 14 139/82 H 96 04/23/17 13:43 04/23/17 13:40 04/23/17 19:01 04/23/17 19:01 04/23/17 19:01 - Laboratory Laboratory results interpreted by me: 04/23/17 04/23/17 04/23/17 13:46 13:46 13:46 WBC 12.6 H RBC 5.53 H MCV 71 L MCH 22.6 L RDW 18.4 H Sodium 136.7 L Glucose 259 H NT-Pro-B Natriuret Pep 897 H Total Protein 6.1 L Albumin 3.4 L - EKG Interpretation by Me Additional EKG results interpreted by me: 04/23/17 17:45 EKG shows sinus tachycardia at a rate of 104, normal axis, normal intervals, poor R-wave progression, no ST segment elevations or depressions, no T-wave inversions per my interpretation. (CROW WELDON) Discharge <SHMUEL PARSONS - Last Filed: 04/24/17 00:17> - Discharge Admitting Provider: Hospitalist - [facility] Admitted: Telemetry - Dr. Mckeon may change after examining this patient <CROW WELDON - Last Filed: 04/24/17 00:21> - Discharge Clinical Impression: Acute respiratory failure with hypoxia, Morbid obesity with BMI of 40.0-44.9, adult Asthma exacerbation Qualifiers: Asthma severity: severe Asthma persistence: persistent Qualified Code(s): J45.51 - Severe persistent asthma with (acute) exacerbation Chest pain Qualifiers: Chest pain type: precordial pain Qualified Code(s): R07.2 - Precordial pain Condition: Fair Disposition: ADMITTED OBSERVATION Scribe Attestation: 04/24/17 00:21 I personally performed the services described in the documentation, reviewed and edited the documentation which was dictated to the scribe in my presence, and it accurately records my words and actions. (CROW WELDON) Scribe Documentation - Scribe Written by Scribe:: Dee Carmichael, 04/23/2017 16:09 acting as scribe for :: Jazmyne <SHMUEL PARSONS - Last Filed: 04/24/17 00:17>
[2017-04-23 15:36] LABS: ABSOLUTE BASOPHILS # (AUTO) 0.1 10^3/uL (0.0-0.2); ABSOLUTE EOSINOPHILS # (AUTO) 0.2 10^3/uL (0.0-0.6); ABSOLUTE LYMPHOCYTES (AUTO) 3.4 10^3/uL (0.5-4.7); ABSOLUTE MONOCYTES (AUTO) 0.9 10^3/uL (0.1-1.4); ABSOLUTE NEUT (AUTO) 7.9 10^3/uL (1.7-8.2); BASOPHILS % (AUTO) 0.4 % (0-2); EOSINOPHILS % (AUTO) 1.5 % (0-6); HEMATOCRIT 39.1 % (36.0-47.0); HEMOGLOBIN 12.5 g/dL (12.0-15.5); LYMPHOCYTES % (AUTO) 27.4 % (13-45); MEAN CORPUSCULAR HEMOGLOBIN 22.6 pg (27.0-33.4); MEAN CORPUSCULAR VOLUME 71 fl (80-97); MONOCYTES % (AUTO) 7.5 % (3-13); PLATELET COUNT 293 10^3/uL (150-450); RED BLOOD COUNT 5.53 10^6/uL (3.72-5.28); RED CELL DISTRIBUTION WIDTH 18.4 % (11.5-14.0); SEGMENTED NEUTROPHILS % (AUTO) 63.2 % (42-78); TOTAL CELLS COUNTED % (AUTO) 100 %; WHITE BLOOD COUNT 12.6 10^3/uL (4.0-10.5)
[2017-04-23] MEDS ORDERED: METHYLPREDNISOLONE INJ 125 MG/2 ML SDV IV ONE (15:40)
[2017-04-23] MEDS ORDERED: ALBUTEROL SULFATE 0.083% NEB 2.5 MG/3 ML AMPUL NEB ONE ×3 (15:40→17:22)
[2017-04-23 15:46] LABS: ALANINE AMINOTRANSFERASE 25 U/L (9-52); ALBUMIN 3.4 g/dL (3.5-5.0); ALKALINE PHOSPHATASE 59 U/L (38-126); ANION GAP 9 (5-19); ASPARTATE AMINO TRANSFERASE 22 U/L (14-36); BILIRUBIN,DIRECT 0.3 mg/dL (0.0-0.4); BILIRUBIN,TOTAL 0.3 mg/dL (0.2-1.3); BLOOD UREA NITROGEN 14 mg/dL (7-20); CALCIUM 9.2 mg/dL (8.4-10.2); CARBON DIOXIDE 25 mmol/L (22-30); CHLORIDE 103 mmol/L (98-107); CREATINE KINASE 118 U/L (30-135); GLUCOSE 259 mg/dL (75-110); POTASSIUM 4.2 mmol/L (3.6-5.0); SODIUM 136.7 mmol/L (137-145); TOTAL PROTEIN 6.1 g/dL (6.3-8.2)
[2017-04-23 15:58] LABS: CREATINE KINASE MB 0.97 ng/mL (<4.55)
[2017-04-23 16:07] LABS: TROPONIN I 0.065 ng/mL
--- NOTE | 2017-04-23 16:46 | RADIOLOGY REPORT (SQ) ---
EXAM DESCRIPTION: CT ABD/PELVIS WITH IV ONLY COMPLETED DATE/TIME: 04/23/2017 4:32 pm REASON FOR STUDY: RLQ abd pain, rule out appy COMPARISON: None. TECHNIQUE: CT scan of the abdomen and pelvis performed using helical scanning technique with dynamic intravenous contrast injection. No oral contrast. Images reviewed with lung, soft tissue, and bone windows. Reconstructed coronal and sagittal MPR images reviewed. Delayed images for evaluation of the urinary system also acquired. All images stored on PACS. All CT scanners at this facility use dose modulation, iterative reconstruction, and/or weight based d osing when appropriate to reduce radiation dose to as low as reasonably achievable (ALARA). [facility]: Dose Right [facility]: CareDose [facility]: Dose Right [facility]: Teradose 4D [facility]: PetsDx [facility] CONTRAST TYPE AND DOSE: Not reported on scanned paperwork RENAL FUNCTION: BUN 14; creatinine 0.77 RADIATION DOSE: CT Rad equipment meets quality standard of care and radiation dose reduction techniq ues were employed. CTDIvol: 21.0 - 29.3 mGy. DLP: 3022 mGy-cm.. LIMITATIONS: None. FINDINGS: LOWER CHEST: No significant findings. No nodules or infiltrates. LIVER: Normal size. No masses. No dilated ducts. SPLEEN: Normal size. No focal lesions. PANCREAS: No masses. No significant calcifications. No adjacent inflammation or peripancreatic fluid collections. Pancreatic duct not dilated. GALLBLADDER: Surgically absent. ADRENAL GLANDS: No significant masses or asymmetry. RIGHT KIDNEY AND URETER: No solid masses. No significant calcifications. No hydronephrosis or hyd roureter. LEFT KIDNEY AND URETER: No solid masses. No significant calcifications. No hydronephrosis or hydr oureter. AORTA AND VESSELS: No aneurysm. No dissection. Renal arteries, SMA, celiac without stenosis. RETROPERITONEUM: No retroperitoneal adenopathy, hemorrhage or masses. BOWEL AND PERITONEAL CAVITY: No masses or inflammatory changes. No free fluid or peritoneal masses. APPENDIX: Normal. PELVIS: No mass. No free fluid. Normal bladder. Incidental note is made of a 3 cm left ovarian cyst . ABDOMINAL WALL: No masses. No hernias. BONES: No significant or acute findings. OTHER: No other significant finding. IMPRESSION: NO SIGNIFICANT OR ACUTE FINDING IN THE ABDOMEN OR PELVIS ON CT SCAN WITH IV CONTRAST. TECHNICAL DOCUMENTATION: JOB ID: [id number] Quality ID # [id number]: Final reports with documentation of one or more dose reduction techniques (e.g., Au tomated exposure control, adjustment of the mA and/or kV according to patient size, use of iterative reconstruction technique) 2010 [employer]- All Rights Reserved
[2017-04-23] MEDS ORDERED: ASPIRIN 325 MG TABLET PO ONE ×2 (17:01→17:22)
[2017-04-23] MEDS ORDERED: FUROSEMIDE INJ/PF 20 MG/2 ML SDV IV ONE (17:01)
--- NOTE | 2017-04-23 17:01 | RADIOLOGY REPORT (SQ) ---
EXAM DESCRIPTION: CHEST PA/LAT COMPLETED DATE/TIME: 04/23/2017 4:52 pm REASON FOR STUDY: SOB, cough, can;t lay flat, ?CHF COMPARISON: 12/09/2016 EXAM PARAMETERS: NUMBER OF VIEWS: two views TECHNIQUE: Digital Frontal and Lateral radiographic views of the chest acquired. RADIATION DOSE: NA LIMITATIONS: none FINDINGS: LUNGS AND PLEURA: No opacities, masses or pneumothorax. No pleural effusion. MEDIASTINUM AND HILAR STRUCTURES: No masses or contour abnormalities. HEART AND VASCULAR STRUCTURES: Borderline cardiomegaly. No evidence for failure. BONES: No acute findings. HARDWARE: None in the chest. OTHER: No other significant finding. IMPRESSION: No evidence of CHF exacerbation or pneumonia. TECHNICAL DOCUMENTATION: JOB ID: [id number] [employer]- All Rights Reserved
[2017-04-23] MEDS ORDERED: ONDANSETRON 4 MG TAB.RAPDIS PO PRN (18:09)
[2017-04-23] MEDS ORDERED: ACETAMINOPHEN 325 MG TABLET PO PRN (18:09)
[2017-04-23] MEDS ORDERED: ONDANSETRON HCL INJ/PF 4 MG/2 ML SDV IV PRN (18:09)
[2017-04-23] MEDS ORDERED: GLUCAGON,HUMAN RECOMB 1 MG INJ IM PRN (18:13)
[2017-04-23] MEDS ORDERED: DEXTROSE 50%-WATER 25 GM/50 ML DISP.SYRIN IV PRN ×2 (18:13)
[2017-04-23] MEDS ORDERED: DEXTROSE 40% GEL 15 GM TUBE PO PRN ×2 (18:13)
[2017-04-23] MEDS ORDERED: INFLUENZA ADLT QUAD (36MOS+) 2017-18 VAC 0.5 ML SYR IM PRN (18:14)
[2017-04-23] MEDS ORDERED: CALCIUM CARBONATE 500 MG TAB.CHEW PO PRN (18:14)
--- NOTE | 2017-04-23 18:27 | PDOC H&P ---
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 Mobley History of Present Illness: DAYTON MENDOZA is a 36 year old female with PMH of Type 2 diabetes, Insulin dependent GERD Diastolic CHF Hyperlipidemia Hypertension TAMEKA on CPAP Bipolar disorder Depression Asthma Patient presented to the hospital 2 days ago with shortness of breath fever and cough and was diagnosed with acute asthma exacerbation and treated with steroids and nebulizer treatments. She felt better and was sent home on a steroid taper. She presented back to the emergency room today after experiencing pressure-like chest pain that started this morning. She was not exerting herself. She has also had progressively worsening shortness of breath. She was found to have extensive wheezing and was treated with aspirin, 20 mg IV Lasix bronchodilators and referred for admission. Twelve-lead EKG showed no acute ST or T-wave changes, CK and troponin were negative. Social history: Her father of brain cancer Grandmother had breast cancer and lung cancer Hypertension Diabetes Past Medical History Cardiac Medical History: Reports: Congestive Heart Failure, Hyperlipidema, Hypertension Pulmonary Medical History: Reports: Asthma, Chronic Obstructive Pulmonary Disease (COPD), Pneumonia Neurological Medical History: Denies: Seizures Endocrine Medical History: Reports: Diabetes Mellitus Type 2 Denies: Diabetes Mellitus Type 1 GI Medical History: Denies: Cirrhosis, Crohn's Disease, Hepatitis Psychiatric Medical History: Reports: Bipolar Disorder, Depression Past Surgical History Past Surgical History: Reports: Cholecystectomy, Herniorrhaphy Social History Smoking Status: Never Smoker Frequency of Alcohol Use: Occasional Hx Recreational Drug Use: No Drugs: None Hx Prescription Drug Abuse: No Family History Family History: DM, Hypertension, Malignancy Parental Family History Reviewed: Yes Children Family History Reviewed: Yes Sibling(s) Family History Reviewed.: Yes Medication/Allergy Home Medications: Albuterol Sulfate [Ventolin HFA MDI 18 GM] 2 puff IH Q8H PRN 12/09/16 Esomeprazole Magnesium [Nexium 24Hr] 20 mg PO DAILY 12/09/16 Fluticasone/Salmeterol [Advair 500-50 Diskus 28 Dose] 1 inh IH Q12 12/09/16 Glipizide [Glucotrol 10 mg Tablet] 10 mg PO BID 12/09/16 Liraglutide [Victoza 2-Bryce] 1.6 mg SQ Q12 12/09/16 Lisinopril [Prinivil] 20 mg PO BID 12/09/16 Metformin HCl [Glucophage] 1,000 mg PO BID 12/09/16 Metoprolol Tartrate [Lopressor 100 mg Tablet] 100 mg PO Q12 12/09/16 Calcium Carbonate [Tums Chewable 500 mg Tab.chew] 500 mg PO Q6HP PRN tab.chew 12/13/16 Diltiazem HCl [Cardizem Cd 120 mg Capsule] 120 mg PO Q12 #30 cap.sr.24h Flu Vacc [id number] Up/Pf [Fluzone Adlt Quad Vac 0.5 ml Syr] 0.5 ml IM .DISCHARGE PRN disp.syrin 12/13/16 Insulin Glargine,Hum.rec.anlog [Lantus Insulin 100 Unit/mL] 60 unit SUBCUT DAILY #1 insuln.pen 12/13/16 Prednisone [Deltasone 20 mg Tablet] 10 mg PO DAILY #39 tablet 12/13/16 Prednisone [Deltasone 20 mg Tablet] 1 tab PO DAILY #4 tablet 04/21/17 Allergies/Adverse Reactions: amoxicillin [Amoxicillin] Allergy (Verified 04/23/17 14:38) Penicillins Allergy (Verified 04/23/17 14:38) Bees/Wasp Allergy (Uncoded 04/23/17 14:38) Review of Systems Constitutional: PRESENT: chills, fever(s) Eyes: ABSENT: visual disturbances Ears: ABSENT: hearing changes Nose, Mouth, and Throat: ABSENT: sore throat Cardiovascular: PRESENT: chest pain. ABSENT: palpitations Respiratory: PRESENT: cough, dyspnea Gastrointestinal: ABSENT: diarrhea, hematemesis Genitourinary: ABSENT: dysuria Neurological: ABSENT: focal weakness Endocrine: ABSENT: flushing Hematologic/Lymphatic: ABSENT: easy bruising Physical Exam Vital Signs: Temp Pulse Resp BP Pulse Ox 98.2 F 107 H 26 H 147/99 H 96 04/23/17 13:43 04/23/17 13:40 04/23/17 15:56 04/23/17 15:56 04/23/17 15:56 Intake & Output 04/22/17 04/23/17 04/24/17 06:59 06:59 06:59 Weight 138.799 kg Additional comments: Young, obese -Mosotho female sitting up in bed not in acute distress HEENT: Pupils equal reactive to light no conjunctival discharge moist pink oropharyngeal mucosa with no lesions Neck is supple trachea is midline Cardiac: S1-S2 regular no murmurs heard no peripheral edema no cyanosis no calf tenderness Respiratory: Positive wheezing bilaterally, normal respiratory effort Chest wall: No tenderness or deformity Abdomen: Soft, no focal tenderness, obese, normal bowel sounds Skin: Warm and dry Psychiatric: Normal mood and affect Neurologic: Awake and alert oriented 3 no focal weakness speech is clear and fluent no facial droop no tremor Results Laboratory Results: 04/23/17 13:46 04/23/17 13:46 04/23/17 04/23/17 13:46 13:46 WBC 12.6 H RBC 5.53 H Hgb 12.5 Hct 39.1 MCV 71 L MCH 22.6 L MCHC 32.0 RDW 18.4 H Plt Count 293 Seg Neutrophils % 63.2 Lymphocytes % 27.4 Monocytes % 7.5 Eosinophils % 1.5 Basophils % 0.4 Absolute Neutrophils 7.9 Absolute Lymphocytes 3.4 Absolute Monocytes 0.9 Absolute Eosinophils 0.2 Absolute Basophils 0.1 Sodium 136.7 L Potassium 4.2 Chloride 103 Carbon Dioxide 25 Anion Gap 9 BUN 14 Creatinine 0.77 Est GFR ( Amer) > 60 Est GFR (Non-Af Amer) > 60 Glucose 259 H Calcium 9.2 Total Bilirubin 0.3 AST 22 ALT 25 Alkaline Phosphatase 59 Total Protein 6.1 L Albumin 3.4 L 04/23/17 04/23/17 13:46 13:46 Creatine Kinase 118 CK-MB (CK-2) 0.97 Troponin I 0.065 NT-Pro-B Natriuret Pep 897 H Impressions: Abdomen/Pelvis CT 04/23/17 00:00 IMPRESSION: NO SIGNIFICANT OR ACUTE FINDING IN THE ABDOMEN OR PELVIS ON CT SCAN WITH IV CONTRAST. Chest X-Ray 04/23/17 15:12 IMPRESSION: No evidence of CHF exacerbation or pneumonia. Assessment & Plan - Diagnosis (1) Acute respiratory failure with hypoxia Is this a current diagnosis for this admission?: Yes Plan: Due to asthma exacerbation (2) Asthma exacerbation Qualifiers: Asthma severity: severe Asthma persistence: persistent Qualified Code(s) : J45.51 - Severe persistent asthma with (acute) exacerbation Is this a current diagnosis for this admission?: Yes Plan: IV steroids, bronchodilators. (3) Chest pain Qualifiers: Chest pain type: precordial pain Qualified Code(s): R07.2 - Precordial pain Is this a current diagnosis for this admission?: Yes Plan: Serial cardiac enzymes. She does have risk factors for coronary artery disease. She will need a stress test. (4) Morbid obesity with BMI of 40.0-44.9, adult Is this a current diagnosis for this admission?: Yes Plan: Calorie control. (5) Acute diastolic (congestive) heart failure Is this a current diagnosis for this admission?: Yes Plan: Monitor intake and output. Low-sodium diet. CHF education. IV diuretics. Monitor kidney function and urine output. (6) GERD (gastroesophageal reflux disease) Qualifiers: Is this a current diagnosis for this admission?: Yes Plan: Proton pump inhibitor (7) Insulin dependent type 2 diabetes mellitus, uncontrolled Is this a current diagnosis for this admission?: Yes Plan: Lantus and sliding scale. Hold Metformin and glipizide and Victoza. (8) Peripheral neuropathy Qualifiers: Peripheral neuropathy type: polyneuropathy, unspecified Qualified Code(s): G62.9 - Polyneuropathy, unspecified Is this a current diagnosis for this admission?: Yes Plan: Continue gabapentin. (9) Hypertension Is this a current diagnosis for this admission?: Yes Plan: Well controlled. Continue outpatient medications. - Time Time Spent: 50 to 70 Minutes - Inpatient Certification Medical Necessity: Failure to Improve With Outpatient Therapy, Need For Continuous Telemetry Monitoring, Risk of Complication if Not Cared For in Hospital
[2017-04-23] MEDS: INSULIN LISPRO 100 UNIT/ML 3 ML VIAL SUBCUT PRN (21:06)
[2017-04-23] MEDS ORDERED: FLUTICASONE/SALMETEROL DISKUS 500-50 MCG/DOSE IH ONE (21:48)
[2017-04-23] MEDS ORDERED: INSULIN GLARGINE,HUM.REC.ANLOG 1,000 UNIT/10 ML UNIT SUBCUT SCH (22:00)
[2017-04-23] MEDS: DOXYCYCLINE HYCLATE 100 MG TABLET PO SCH (22:08)
[2017-04-23] MEDS: LISINOPRIL 10 MG TABLET PO SCH (22:09)
[2017-04-23] MEDS: METHYLPREDNISOLONE INJ 40 MG/1 ML SDV IV SCH (22:09)
[2017-04-23] MEDS: DILTIAZEM HCL 120 MG CAP.SR.24H PO SCH (22:09)
[2017-04-23] MEDS: FLUTICASONE/SALMETEROL DISKUS 500-50 MCG/DOSE IH SCH (22:11)
[2017-04-23] MEDS: METOPROLOL TARTRATE 100 MG TABLET PO SCH (22:11)
[2017-04-23] MEDS ORDERED: LEVALBUTEROL HCL NEB 1.25 MG/3 ML AMPUL NEB ONE (23:00)
[2017-04-24] MEDS: METHYLPREDNISOLONE INJ 40 MG/1 ML SDV IV SCH ×3 (05:06→21:26)
[2017-04-24] MEDS: INSULIN LISPRO 100 UNIT/ML 3 ML VIAL SUBCUT PRN ×4 (05:06→21:33)
[2017-04-24] MEDS: LANSOPRAZOLE 15 MG TAB.RAP.DR PO SCH ×2 (05:06→17:07)
[2017-04-24 07:29] LABS: ANION GAP 14 (5-19); BLOOD UREA NITROGEN 16 mg/dL (7-20); CALCIUM 9.8 mg/dL (8.4-10.2); CARBON DIOXIDE 21 mmol/L (22-30); CHLORIDE 101 mmol/L (98-107); CHOLESTEROL 138.06 mg/dL (0-200); CREATINE KINASE 86 U/L (30-135); GLUCOSE 325 mg/dL (75-110); PHOSPHORUS 4.9 mg/dL (2.5-4.5); POTASSIUM 4.6 mmol/L (3.6-5.0); TRIGLYCERIDES 61 mg/dL (<150)
[2017-04-24 07:39] LABS: DIRECT LDL 58 mg/dL (<100)
[2017-04-24] MEDS: LEVALBUTEROL HCL NEB 1.25 MG/3 ML AMPUL NEB SCH ×3 (08:19→21:00)
--- NOTE | 2017-04-24 09:03 | EKG REPORT ---
SEVERITY:- ABNORMAL ECG - SINUS TACHYCARDIA ABNORMAL Q SUGGESTS ANTERIOR INFARCT : Confirmed by: Tan Mobley 24-Apr-2017 09:03:20
[2017-04-24] MEDS: LISINOPRIL 10 MG TABLET PO SCH ×2 (09:54→21:24)
[2017-04-24] MEDS: DILTIAZEM HCL 120 MG CAP.SR.24H PO SCH ×2 (09:54→21:23)
[2017-04-24] MEDS: DOCUSATE SODIUM 100 MG CAPSULE PO SCH (09:54)
[2017-04-24] MEDS: METOPROLOL TARTRATE 100 MG TABLET PO SCH ×2 (09:55→21:42)
[2017-04-24] MEDS: FLUTICASONE/SALMETEROL DISKUS 500-50 MCG/DOSE IH SCH ×2 (09:56→21:23)
[2017-04-24] MEDS: FUROSEMIDE INJ/PF 20 MG/2 ML SDV IV SCH ×2 (09:56→21:26)
[2017-04-24] MEDS: DOXYCYCLINE HYCLATE 100 MG TABLET PO SCH ×2 (09:56→21:42)
--- NOTE | 2017-04-24 11:26 | PDOC PROGRESS REPORT ---
Subjective Progress Note for:: 04/24/17 Subjective:: 36 year old female with PMH of Type 2 diabetes, Insulin dependent GERD Diastolic CHF Hyperlipidemia Hypertension TAMEKA on CPAP Bipolar disorder Depression Asthma Patient presented to the hospital 2 days ago with shortness of breath fever and cough and was diagnosed with acute asthma exacerbation and treated with steroids and nebulizer treatments. She felt better and was sent home on a steroid taper. She presented back to the emergency room today after experiencing pressure-like chest pain that started this morning. She was not exerting herself. She has also had progressively worsening shortness of breath. She was found to have extensive wheezing and was treated with aspirin, 20 mg IV Lasix bronchodilators and referred for admission. Twelve-lead EKG showed no acute ST or T-wave changes, CK and troponin were negative. Continues to have cough and chest discomfort. Will order mucinex, flutter valve incentive spirometry and Tylenol with codeine for cough. cardiac enzymes negative. Reason For Visit: PRESSURE LIKE CHEST PAIN Physical Exam Vital Signs: Temp Pulse Resp BP Pulse Ox 98.5 F 78 18 132/81 H 96 04/24/17 07:22 04/24/17 08:19 04/24/17 08:19 04/24/17 07:22 04/24/17 08:19 Intake & Output 04/23/17 04/24/17 04/25/17 06:59 06:59 06:59 Intake Total 118 Balance 118 Weight 138.7 kg Additional comments: Young, obese -Turkish female sitting up in bed not in acute distress HEENT: Pupils equal reactive to light no conjunctival discharge moist pink oropharyngeal mucosa with no lesions Neck is supple trachea is midline Cardiac: S1-S2 regular no murmurs heard no peripheral edema no cyanosis no calf tenderness Respiratory: Positive wheezing bilaterally, normal respiratory effort Chest wall: No tenderness or deformity Abdomen: Soft, no focal tenderness, obese, normal bowel sounds Skin: Warm and dry Psychiatric: Normal mood and affect Neurologic: Awake and alert oriented 3 no focal weakness speech is clear and fluent no facial droop no tremor Results Laboratory Results: 04/24/17 06:25 04/24/17 04/24/17 06:25 06:25 Sodium 136.0 L Potassium 4.6 Chloride 101 Carbon Dioxide 21 L Anion Gap 14 BUN 16 Creatinine 0.68 Est GFR ( Amer) > 60 Est GFR (Non-Af Amer) > 60 Glucose 325 H Calcium 9.8 Phosphorus 4.9 H Magnesium 2.0 Triglycerides 61 Cholesterol 138.06 LDL Cholesterol Direct 58 VLDL Cholesterol 12.0 HDL Cholesterol 68 TSH 0.45 L 04/23/17 04/23/17 04/24/17 18:15 18:15 00:26 Creatine Kinase 114 114 Troponin I 0.049 04/24/17 04/24/17 04/24/17 00:26 06:25 06:25 Creatine Kinase 86 Troponin I 0.040 0.043 Impressions: Abdomen/Pelvis CT 04/23/17 00:00 IMPRESSION: NO SIGNIFICANT OR ACUTE FINDING IN THE ABDOMEN OR PELVIS ON CT SCAN WITH IV CONTRAST. Chest X-Ray 04/23/17 15:12 IMPRESSION: No evidence of CHF exacerbation or pneumonia. Assessment & Plan - Diagnosis (1) Acute respiratory failure with hypoxia Is this a current diagnosis for this admission?: Yes Plan: Due to asthma exacerbation (2) Asthma exacerbation Qualifiers: Asthma severity: severe Asthma persistence: persistent Qualified Code(s) : J45.51 - Severe persistent asthma with (acute) exacerbation Is this a current diagnosis for this admission?: Yes Plan: IV steroids, bronchodilators. (3) Chest pain Qualifiers: Chest pain type: precordial pain Qualified Code(s): R07.2 - Precordial pain Is this a current diagnosis for this admission?: Yes Plan: Serial cardiac enzymes have been negative, no EKG changes. Continue Aspirin. She does have risk factors for coronary artery disease. Stress test as outpatient once she recovers from her acute illness. (4) Morbid obesity with BMI of 40.0-44.9, adult Is this a current diagnosis for this admission?: Yes Plan: Calorie control. (5) Acute diastolic (congestive) heart failure Is this a current diagnosis for this admission?: Yes Plan: Monitor intake and output. Low-sodium diet. CHF education. IV Lasix Q12 hrs for another 24 hrs then consider switching to PO Monitor kidney function and urine output. (6) GERD (gastroesophageal reflux disease) Qualifiers: Is this a current diagnosis for this admission?: Yes Plan: Proton pump inhibitor (7) Insulin dependent type 2 diabetes mellitus, uncontrolled Is this a current diagnosis for this admission?: Yes Plan: Lantus and sliding scale- adjust dosage for better BP control. Hold Metformin and glipizide and Victoza. (8) Peripheral neuropathy Qualifiers: Peripheral neuropathy type: polyneuropathy, unspecified Qualified Code(s): G62.9 - Polyneuropathy, unspecified Is this a current diagnosis for this admission?: Yes Plan: Continue gabapentin. (9) Hypertension Is this a current diagnosis for this admission?: Yes Plan: Well controlled. Continue outpatient medications. - Time Time Spent with patient: 35 or more minutes
[2017-04-24] MEDS: ASPIRIN 81 MG TABLET, ENT COATED PO SCH (11:58)
[2017-04-24] MEDS ORDERED: INSULIN LISPRO 100 UNIT/ML 3 ML VIAL SUBCUT ONE (14:00)
[2017-04-24] MEDS: LEVALBUTEROL HCL NEB 0.63 MG/3 ML AMPUL NEB SCH ×2 (14:00→21:41)
[2017-04-24] MEDS: GUAIFENESIN 600 MG TABLET.SA PO SCH (17:07)
[2017-04-24] MEDS ORDERED: INSULIN GLARGINE,HUM.REC.ANLOG 1,000 UNIT/10 ML UNIT SUBCUT SCH (22:00)
[2017-04-24] MEDS ORDERED: INSULIN GLARGINE,HUM.REC.ANLOG 300 UNIT/3 ML INSULN.PEN SUBCUT SCH (22:00)
[2017-04-25] MEDS: ACETAMINOPHEN WITH CODEINE #3 TABLET PO PRN ×2 (02:36→23:36)
[2017-04-25] MEDS ORDERED: ALBUTEROL SULFATE 0.083% NEB 2.5 MG/3 ML AMPUL NEB PRN (04:31)
[2017-04-25] MEDS: METHYLPREDNISOLONE INJ 40 MG/1 ML SDV IV SCH (06:48)
[2017-04-25] MEDS: LANSOPRAZOLE 15 MG TAB.RAP.DR PO SCH ×2 (06:49→17:42)
[2017-04-25] MEDS: INSULIN LISPRO 100 UNIT/ML 3 ML VIAL SUBCUT PRN ×4 (06:49→21:30)
[2017-04-25] MEDS: GUAIFENESIN 600 MG TABLET.SA PO SCH ×2 (06:49→17:42)
[2017-04-25] MEDS: LEVALBUTEROL HCL NEB 1.25 MG/3 ML AMPUL NEB SCH ×3 (07:51→20:44)
[2017-04-25] MEDS: FLUTICASONE/SALMETEROL DISKUS 500-50 MCG/DOSE IH SCH ×2 (09:57→21:29)
[2017-04-25] MEDS: FUROSEMIDE INJ/PF 20 MG/2 ML SDV IV SCH ×2 (09:57→21:29)
[2017-04-25] MEDS: LISINOPRIL 10 MG TABLET PO SCH ×2 (09:58→21:29)
[2017-04-25] MEDS: DOXYCYCLINE HYCLATE 100 MG TABLET PO SCH ×2 (09:58→21:29)
[2017-04-25] MEDS: DILTIAZEM HCL 120 MG CAP.SR.24H PO SCH ×2 (09:58→21:29)
[2017-04-25] MEDS: METOPROLOL TARTRATE 100 MG TABLET PO SCH ×2 (09:59→21:30)
[2017-04-25] MEDS: DOCUSATE SODIUM 100 MG CAPSULE PO SCH (09:59)
[2017-04-25] MEDS ORDERED: INSULIN LISPRO 100 UNIT/ML 3 ML VIAL SUBCUT ONE ×2 (11:45→19:30)
[2017-04-25] MEDS: ASPIRIN 81 MG TABLET, ENT COATED PO SCH (11:47)
--- NOTE | 2017-04-25 11:55 | PDOC PROGRESS REPORT ---
Subjective Progress Note for:: 04/25/17 Subjective:: Patient states her breathing is better she has no chest pain She is alert and awake no fever no chills Blood sugars have been running high above 400 Reason For Visit: PRESSURE LIKE CHEST PAIN Physical Exam Vital Signs: Temp Pulse Resp BP Pulse Ox 98.0 F 88 21 H 157/90 H 95 04/25/17 00:21 04/25/17 07:51 04/25/17 07:51 04/25/17 00:21 04/25/17 07:51 Intake & Output 04/24/17 04/25/17 04/26/17 00:59 00:59 00:59 Intake Total 118 3229 1145 Balance 118 3229 1145 Weight 138.7 kg 138.7 kg General appearance: PRESENT: no acute distress, cooperative Head exam: PRESENT: atraumatic, normocephalic Eye exam: PRESENT: conjunctiva pink, EOMI, PERRLA. ABSENT: scleral icterus Neck exam: ABSENT: carotid bruit, JVD, lymphadenopathy, thyromegaly Respiratory exam: PRESENT: clear to auscultation russell. ABSENT: rales, rhonchi, wheezes Pulses: PRESENT: normal dorsalis pedis pul GI/Abdominal exam: PRESENT: normal bowel sounds, soft. ABSENT: distended, guarding, mass, organolmegaly, rebound, tenderness Neurological exam: PRESENT: alert, awake, oriented to person, oriented to place , oriented to time, oriented to situation, CN II-XII grossly intact. ABSENT: motor sensory deficit Results Laboratory Results: 04/24/17 06:25 04/23/17 04/23/17 04/24/17 18:15 18:15 00:26 Creatine Kinase 114 114 Troponin I 0.049 04/24/17 04/24/17 04/24/17 00:26 06:25 06:25 Creatine Kinase 86 Troponin I 0.040 0.043 EKG Comments: Review of an echocardiogram performed in 2016 showed an EF of 55% and diastolic dysfunction review of EKG"s In 2016 patient had a normal EKG ; in 2017 patient had developed Q waves in precordial leads suggestive of anteroseptal AL age undetermined Impressions: Abdomen/Pelvis CT 04/23/17 00:00 IMPRESSION: NO SIGNIFICANT OR ACUTE FINDING IN THE ABDOMEN OR PELVIS ON CT SCAN WITH IV CONTRAST. Chest X-Ray 04/23/17 15:12 IMPRESSION: No evidence of CHF exacerbation or pneumonia. Assessment & Plan - Diagnosis (1) Abnormal EKG Is this a current diagnosis for this admission?: Yes Plan: We will discuss the case with Dr. Mobley Echocardiogram to be repeated (2) Chronic diastolic CHF (congestive heart failure) Is this a current diagnosis for this admission?: Yes (3) Uncontrolled diabetes mellitus Qualifiers: Diabetes mellitus type: type 2 Diabetes mellitus complication status: with unspecified complications Diabetes mellitus senior living insulin use: with senior living use Qualified Code(s): E11.8 - Type 2 diabetes mellitus with unspecified complications; E11.65 - Type 2 diabetes mellitus with hyperglycemia; E11.65 - Type 2 diabetes mellitus with hyperglycemia; E11.65 - Type 2 diabetes mellitus with hyperglycemia; E11.65 - Type 2 diabetes mellitus with hyperglycemia; Z79.4 - nursing home (current) use of insulin; Z79.4 - buttermaker helper (current) use of insulin ; Z79.4 - nursing home (current) use of insulin; Z79.4 - buttermaker helper (current) use of insulin Is this a current diagnosis for this admission?: Yes Plan: Hemoglobin A1c is 10.5 We will increase Lantus ; decrease steroids (4) Asthma exacerbation Qualifiers: Asthma severity: severe Asthma persistence: persistent Qualified Code(s) : J45.51 - Severe persistent asthma with (acute) exacerbation Is this a current diagnosis for this admission?: Yes (5) Hypertension Qualifiers: Hypertension type: essential hypertension Qualified Code(s): I10 - Essential (primary) hypertension Is this a current diagnosis for this admission?: Yes (6) Morbid obesity with BMI of 40.0-44.9, adult Is this a current diagnosis for this admission?: Yes
[2017-04-25] MEDS ORDERED: FLUCONAZOLE 100 MG TABLET PO ONE (21:00)
[2017-04-25] MEDS ORDERED: DEXTROSE 40% GEL 15 GM TUBE PO PRN ×2 (21:00)
[2017-04-25] MEDS ORDERED: GLUCAGON,HUMAN RECOMB 1 MG INJ IM PRN (21:00)
[2017-04-25] MEDS ORDERED: DEXTROSE 50%-WATER 25 GM/50 ML DISP.SYRIN IV PRN ×2 (21:00)
[2017-04-25] MEDS ORDERED: INSULIN GLARGINE,HUM.REC.ANLOG 300 UNIT/3 ML INSULN.PEN SUBCUT SCH (22:00)
[2017-04-26 05:43] LABS: ANION GAP 12 (5-19); BLOOD UREA NITROGEN 26 mg/dL (7-20); CALCIUM 9.2 mg/dL (8.4-10.2); CARBON DIOXIDE 23 mmol/L (22-30); CHLORIDE 102 mmol/L (98-107); GLUCOSE 346 mg/dL (75-110); POTASSIUM 4.4 mmol/L (3.6-5.0); SODIUM 137.3 mmol/L (137-145)
[2017-04-26] MEDS: GUAIFENESIN 600 MG TABLET.SA PO SCH ×2 (06:04→16:52)
[2017-04-26] MEDS: LANSOPRAZOLE 15 MG TAB.RAP.DR PO SCH ×2 (06:04→16:52)
--- NOTE | 2017-04-26 08:20 | Physician Advisory Note ---
Physician Advisor ProgressNote .: Pursuant to the plan for Lucita Kumar, I have reviewed the medical record for this patient. Physician Advisor Statement: Nice documentation of morbid obesity, type asthma. Please consider documenting, if you agree: 1. "Acute Hypoxemic Resp Failure, evidenced by labored breathing initially in ED with O2 sats very abnormal for age dropping to 90% just with talking." 2. "Acute on chronic diastolic CHF, evidenced by " 3. "Acute CP, suspect due to " 4. Principal Dx: please list main reason for hospitalization as dx #1 in each note. Please document supporting clinical evidence for dx.s, especially Acute syst/ diast CHF, Ac Resp FAilure, PNA, COPD exacerbation, .... - Payers are now denying payments based on "attending didn't prove in documentation that pt had the dx". Status: appropriate to change to Inpatient status if attending agrees. Thanks for your help! CK
[2017-04-26] MEDS: LEVALBUTEROL HCL NEB 1.25 MG/3 ML AMPUL NEB SCH ×2 (08:21→13:49)
[2017-04-26] MEDS: FLUTICASONE/SALMETEROL DISKUS 500-50 MCG/DOSE IH SCH (09:22)
[2017-04-26] MEDS: FUROSEMIDE INJ/PF 20 MG/2 ML SDV IV SCH (09:23)
[2017-04-26] MEDS: DOXYCYCLINE HYCLATE 100 MG TABLET PO SCH (09:23)
[2017-04-26] MEDS: LISINOPRIL 10 MG TABLET PO SCH (09:24)
[2017-04-26] MEDS: DOCUSATE SODIUM 100 MG CAPSULE PO SCH (09:24)
[2017-04-26] MEDS: DILTIAZEM HCL 120 MG CAP.SR.24H PO SCH (09:24)
[2017-04-26] MEDS: METOPROLOL TARTRATE 100 MG TABLET PO SCH (09:25)
[2017-04-26] MEDS: INSULIN LISPRO 100 UNIT/ML 3 ML VIAL SUBCUT PRN ×3 (09:30→16:49)
[2017-04-26] MEDS ORDERED: PREDNISONE 20 MG TABLET PO SCH (10:00)
[2017-04-26] MEDS: ASPIRIN 81 MG TABLET, ENT COATED PO SCH (11:51)
[2017-04-26 17:56] VITALS: BP 129/64
--- NOTE | 2017-04-26 19:05 | PDOC DISCHARGE SUMMARY ---
General - Admit/Disc Date/PCP Admission Date/Primary Care Provider: 04/23/17 18:14 Discharge Date: 04/26/17 - Discharge Diagnosis (1) Abnormal EKG Is this a current diagnosis for this admission?: Yes (2) Chronic diastolic CHF (congestive heart failure) Is this a current diagnosis for this admission?: Yes (3) Uncontrolled diabetes mellitus Is this a current diagnosis for this admission?: Yes (4) Asthma exacerbation Is this a current diagnosis for this admission?: Yes (5) Hypertension Is this a current diagnosis for this admission?: Yes (6) Morbid obesity with BMI of 40.0-44.9, adult Is this a current diagnosis for this admission?: Yes - Additional Information Resuscitation Status: Full Code Discharge Diet: Diabetic Discharge Activity: Activity As Tolerated Prescriptions: Insulin Glargine,Hum.rec.anlog [Lantus Solostar] 60 unit SQ QHS #1 insuln.pen Diltiazem HCl [Cardizem Cd 120 mg Capsule] 120 mg PO Q12 #60 cap.sr.24h Diltiazem HCl [Cardizem Cd 180 mg Capsule] 180 mg PO BID #60 capsule.cr Doxycycline Hyclate [Vibramycin 100 mg Tablet] 100 mg PO Q12 #7 tablet Prednisone [Deltasone 20 mg Tablet] 20 mg PO DAILY #8 tablet Home Medications: Albuterol Sulfate [Ventolin 0.083% Neb 2.5 mg/3 mL Ampul] 3 ml NEB RTBID Albuterol Sulfate [Ventolin Hfa] 1 puff IH Q4HP PRN 04/24/17 Fluticasone/Salmeterol [Advair 500-50 Diskus 14 Dose/Diskus] 1 puff IH BID 04/24 Gabapentin [Neurontin 300 mg Capsule] 300 mg PO TID 04/24/17 Glipizide [Glucotrol 10 mg Tablet] 15 mg PO BID 04/24/17 Liraglutide [Victoza 2-Bryce] 0.6 mg PO BID 04/24/17 Lisinopril [Zestril] 20 mg PO BID 04/24/17 Metformin HCl [Glucophage XR 500 mg Tablet] 1,000 mg PO BID 04/24/17 Pantoprazole Sodium [Protonix] 20 mg PO AC 04/24/17 Diltiazem HCl [Cardizem Cd 120 mg Capsule] 120 mg PO Q12 #60 cap.sr.24h Diltiazem HCl [Cardizem Cd 180 mg Capsule] 180 mg PO BID #60 capsule.cr Doxycycline Hyclate [Vibramycin 100 mg Tablet] 100 mg PO Q12 #7 tablet 04/26/17 Insulin Glargine,Hum.rec.anlog [Lantus Solostar] 60 unit SQ QHS #1 insuln.pen Prednisone [Deltasone 20 mg Tablet] 20 mg PO DAILY #8 tablet 04/26/17 History of Present Illness Patient complains of: Shortness of breath History of Present Illness: DAYTON MENDOZA is a 36 year old female with a past medical history of insulin- dependent diabetes, hypertension, diastolic heart failure, obstructive sleep apnea, morbid obesity and asthma who has had approximately 48 hours of exacerbation of asthma. She denies medication noncompliance, exposure to known triggers, URI or GERD symptoms. In the emergency room she is found to have tachypnea, tachycardia and global wheeze referred to the hospitalist for admission. Hospital Course Hospital Course: - Diagnosis (1) Abnormal EKG patient did have Q waves in precordial areas suggestive of an old anteroseptal MD These changes were present year ago Patient did not have any chest pain, troponins remain in the intermediate range Patient was advised to [facility] stress test should be scheduled as an outpatient when dyspnea has resolved (2) Chronic diastolic CHF (congestive heart failure) There was no evidence of CHF during this admission; 19 proBNP was normal (3) Uncontrolled diabetes mellitus Blood sugars were very high 3 00-400 range patient is very sensitive to steroids We increased Lantus to 60 units at night (4) Asthma exacerbation Patient improved She was treated with steroids and nebs We decreased prednisone to 20 mg a day at discharge Metoprolol was discontinued as patient feels that it does worsen bronchospasm (5) Hypertension Was controlled We increased Cardizem CD 180 mg twice a day and discontinued metoprolol ( Physical Exam Vital Signs: Temp Pulse Resp BP Pulse Ox 98.4 F 86 19 129/64 H 97 04/26/17 17:49 04/26/17 17:49 04/26/17 17:49 04/26/17 17:49 04/26/17 17:49 Intake & Output 04/25/17 04/26/17 04/27/17 00:59 00:59 00:59 Intake Total 3229 3209 1129 Output Total 600 1100 Balance 3229 2609 29 Weight 138.7 kg 138.7 kg 142.4 kg General appearance: PRESENT: no acute distress, cooperative Head exam: PRESENT: atraumatic, normocephalic Eye exam: PRESENT: conjunctiva pink, EOMI, PERRLA. ABSENT: scleral icterus Neck exam: ABSENT: carotid bruit, JVD, lymphadenopathy, thyromegaly Respiratory exam: PRESENT: clear to auscultation russell. ABSENT: rales, rhonchi, wheezes Pulses: PRESENT: normal dorsalis pedis pul GI/Abdominal exam: PRESENT: normal bowel sounds, soft. ABSENT: distended, guarding, mass, organolmegaly, rebound, tenderness Neurological exam: PRESENT: alert, awake, oriented to person, oriented to place , oriented to time, oriented to situation, CN II-XII grossly intact. ABSENT: motor sensory deficit Results Laboratory Results: 04/26/17 04:24 04/26/17 04:24 Sodium 137.3 Potassium 4.4 Chloride 102 Carbon Dioxide 23 Anion Gap 12 BUN 26 H Creatinine 0.84 Est GFR ( Amer) > 60 Est GFR (Non-Af Amer) > 60 Glucose 346 H Calcium 9.2 04/23/17 04/23/17 04/24/17 18:15 18:15 00:26 Creatine Kinase 114 114 Troponin I 0.049 NT-Pro-B Natriuret Pep 04/24/17 04/24/17 04/24/17 00:26 06:25 06:25 Creatine Kinase 86 Troponin I 0.040 0.043 NT-Pro-B Natriuret Pep 04/26/17 04:24 Creatine Kinase Troponin I NT-Pro-B Natriuret Pep 216 H Impressions: Abdomen/Pelvis CT 04/23/17 00:00 IMPRESSION: NO SIGNIFICANT OR ACUTE FINDING IN THE ABDOMEN OR PELVIS ON CT SCAN WITH IV CONTRAST. Chest X-Ray 04/23/17 15:12 IMPRESSION: No evidence of CHF exacerbation or pneumonia. Plan Discharge Plan: Discharge home; follow up with [facility]; Advised stress test be performed as an outpatient Time Spent: Greater than 30 Minutes
== END 2017-04-26 18:20 | disposition home or self-care (01) | DRG 189 ==
LOC: ER 13:37 → OBSVTOIN 18:14 → EH 18:14 → 4N 20:15
PROVIDERS: ADMIT Emergency Medicine; ATTEND Emergency Medicine
DX: J96.01 Acute respiratory failure with hypoxia (principal); I50.33 Acute on chronic diastolic (congestive) heart failure; J45.51 Severe persistent asthma with (acute) exacerbation; Z68.41 Body mass index [BMI] 40.0-44.9, adult; I11.0 Hypertensive heart disease with heart failure; E11.65 Type 2 diabetes mellitus with hyperglycemia; I48.91 Unspecified atrial fibrillation; K21.9 Gastro-esophageal reflux disease without esophagitis; E78.5 Hyperlipidemia, unspecified; G47.33 Obstructive sleep apnea (adult) (pediatric); F41.8 Other specified anxiety disorders; F31.9 Bipolar disorder, unspecified; E66.01 Morbid (severe) obesity due to excess calories; Z79.84 Long term (current) use of oral hypoglycemic drugs; Z79.4 Long term (current) use of insulin; Z79.51 Long term (current) use of inhaled steroids; Z79.52 Long term (current) use of systemic steroids; Z79.899 Other long term (current) drug therapy
CPT/HCPCS: 36415; 71046; 74177; 80048; 80053; 80061; 82550; 82553; 82962; 83036; 83735; 83880; 84100; 84443; 84484; 85025; 85379; 93005; 93010; 94640; 94660; 94668; 94799; 99285; G0378; J1815; J1940; J2920; J3490; J7512

== ENCOUNTER 2017-06-06 14:46 | Emergency (ER) | payer SELFPAY ==
[2017-06-06 15:06] VITALS: BP 156/99
--- NOTE | 2017-06-06 15:22 | RADIOLOGY REPORT (SQ) ---
EXAM DESCRIPTION: KNEE RIGHT 4 VIEWS COMPLETED DATE/TIME: 06/06/2017 3:13 pm REASON FOR STUDY: pain COMPARISON: None. NUMBER OF VIEWS: Four views. TECHNIQUE: AP, lateral, and both oblique radiographic images acquired of the right knee. LIMITATIONS: None. FINDINGS: MINERALIZATION: Normal. BONES: No acute fracture or dislocation. No worrisome bone lesions. JOINT: No effusion. SOFT TISSUES: No soft tissue swelling. No radio-opaque foreign body. OTHER: No other significant finding. IMPRESSION: NEGATIVE STUDY OF THE RIGHT KNEE. NO RADIOGRAPHIC EVIDENCE OF ACUTE INJURY. TECHNICAL DOCUMENTATION: JOB ID: [id number] [employer]- All Rights Reserved Reading location - IP/workstation name: [email or web address]
--- NOTE | 2017-06-06 15:35 | ER Document Report ---
ED Extremity Problem, Lower - General Chief Complaint: Knee Pain Stated Complaint: KNEE PAIN Time Seen by Provider: 06/06/17 15:10 Mode of Arrival: Ambulatory Information source: Patient TRAVEL OUTSIDE OF THE [place] IN LAST 30 DAYS: No - HPI Patient complains to provider of: Pain Location: Knee Notes: Patient is here with complaints of right knee pain. She states that a few days ago she was getting out of bed, twisted her knee and had sudden pain in the knee. She states that her knee is swollen. The swelling seems to have improved. She continues to have a lot of pain in the knee. No fever, no redness. No numbness, tingling, weakness. No nausea, vomiting, diarrhea. No chest pain or shortness of breath. No abdominal pain. No rash. Pain is worse with movement, nothing seems to make it better. She denies any other complaints at this time. - Related Data Allergies/Adverse Reactions: amoxicillin [Amoxicillin] Allergy (Verified 06/06/17 14:48) Penicillins Allergy (Verified 06/06/17 14:48) Bees/Wasp Allergy (Uncoded 04/23/17 14:38) Past Medical History - Social History Smoking Status: Unknown if Ever Smoked Family History: Hypertension - Past Medical History Cardiac Medical History: Reports: Hx Congestive Heart Failure, Hx Hypercholesterolemia, Hx Hypertension Pulmonary Medical History: Reports: Hx Asthma, Hx COPD, Hx Pneumonia Neurological Medical History: Denies: Hx Seizures Endocrine Medical History: Reports: Hx Diabetes Mellitus Type 2. Denies: Hx Diabetes Mellitus Type 1 Renal/ Medical History: Reports: Hx Kidney Stones. Denies: Hx Peritoneal Dialysis GI Medical History: Denies: Hx Cirrhosis, Hx Crohn's Disease, Hx Hepatitis Psychiatric Medical History: Reports: Hx Anxiety, Hx Bipolar Disorder, Hx Depression Infectious Medical History: Denies: Hx Hepatitis Past Surgical History: Reports: Hx Abdominal Surgery - hernia, Hx Cholecystectomy, Hx Herniorrhaphy, Hx Umbilical Hernia - Immunizations Immunizations up to date: No Hx Diphtheria, Pertussis, Tetanus Vaccination: Yes Hx Pneumococcal Vaccination: 07/28/15 Review of Systems - Review of Systems -: Yes All other systems reviewed and negative Physical Exam - Vital signs Vitals: Temp Pulse Resp BP Pulse Ox 98.6 F 101 H 16 156/99 H 95 06/06/17 15:01 06/06/17 15:01 06/06/17 15:01 06/06/17 15:01 06/06/17 15:01 - Notes Notes: GENERAL: alert, cooperative, nontoxic, no distress. HEAD: normocephalic, atraumatic EYES: conjunctiva pink without discharge, no external redness or swelling. EARS: no external swelling, no external redness NOSE: atraumatic, no external swelling MOUTH/THROAT: mucous membranes moist and pink NECK: soft, supple, full range of motion, no meningismus. CHEST: no distress, lungs clear and equal throughout. No wheezing, rales, rhonchi. CARDIAC: regular rate and rhythm, no murmur, normal capillary refill, normal pulses. BACK: full range of motion, no CVA tenderness. EXTREMITIES: Tenderness to the lateral aspect of the right knee. No redness, no swelling. Slightly limited flexion of the knee secondary to pain. No increased laxity with stressing the LCL or MCL. Anterior posterior drawer are unremarkable. Normal straight leg raise. Hip and ankle are unremarkable. Compartments are soft. Normal pulse and sensation distally. NEURO: alert and oriented 3, no focal deficits, full range of motion of all extremities. PYSCH: appropriate mood, affect. Patient is cooperative. SKIN: pink, warm, dry, no rash. Course - Re-evaluation Re-evalutation: 06/06/17 15:32 Patient is nontoxic appearing with stable vitals. She is here with complaints of right knee pain. Pain started when she was getting out of bed a few nights ago and twisted her knee. She has tenderness along the lateral aspect of the knee. Is possible she could have a meniscus or LCL injury. She has no ligament instability. She is able to raise her leg off the bed without significant difficulty. There is no redness, fever, signs of infection. Compartments are soft. Normal neurovascular exam. X-ray shows no acute bony abnormality. The patient be placed in an Riley wrap. Crutches as needed for comfort. Discharged home with a prescription for Voltaren. Follow-up with orthopedics if not better in 1 week, sooner for worsening pain, fever, redness, numbness, tingling, weakness, any further concerns. The patient is noted to have elevated blood pressure during today's emergency department visit. The patient was informed of this finding. The patient was instructed that this may be related to pre-hypertension and requires further evaluation with a primary care provider. The patient has no hypertensive symptoms at this time. The patient's emergency department workup and current diagnosis were explained to the patient and or family. Follow-up instructions were provided. Medications if prescribed were discussed. Instructions for when to return to the emergency department including specific worrisome symptoms were discussed with the patient and/or family. - Vital Signs Vital signs: Temp Pulse Resp BP Pulse Ox 98.6 F 101 H 16 156/99 H 95 06/06/17 15:06/06/17 15:01 06/06/17 15:06/06/17 15:06/06/17 15:01 - Diagnostic Test Radiology reviewed: Image reviewed, Reports reviewed - Normal x-ray of the right knee Discharge - Discharge Clinical Impression: Right knee sprain Qualifiers: Encounter type: initial encounter Involved ligament of knee: unspecified ligament Qualified Code(s): S83.91XA - Sprain of unspecified site of right knee , initial encounter Condition: Stable Disposition: HOME, SELF-CARE Instructions: Use of Crutches ([facility]), Ice & Elevation ([facility]), Sprained Knee ([facility]) Additional Instructions: Take medications as prescribed. Rest, ice, elevate. Wear Riley wrap and use crutches as needed. Follow-up with your doctor or orthopedics if not better in 1 week, sooner for increasing pain, fever, numbness, tingling, weakness, redness , any further concerns. Your blood pressure was elevated during today's visit. Have this rechecked with your doctor. Prescriptions: Diclofenac Sodium [Voltareterrell 50 Mg Katt.] 50 mg PO BID #20 tablet. Forms: Elevated Blood Pressure, Smoking Cessation Education Referrals: [facility] [Provider Group] - Follow up as needed KLEVER GAN DO [ACTIVE STAFF] - Follow up as needed
== END 2017-06-06 16:01 | disposition home or self-care (01) ==
LOC: ER 14:46
DX: S83.91XA Sprain of unspecified site of right knee, initial encounter (principal); M25.561 Pain in right knee; X50.1XXA Overexertion from prolonged static or awkward postures, initial encounter; Y92.003 Bedroom of unspecified non-institutional (private) residence as the place of occurrence of the external cause; M25.461 Effusion, right knee; I10 Essential (primary) hypertension; J44.9 Chronic obstructive pulmonary disease, unspecified; E11.9 Type 2 diabetes mellitus without complications
CPT/HCPCS: 99283

== ENCOUNTER 2017-07-01 16:43 | Emergency (ER) | payer SELFPAY ==
[2017-07-01] MEDS ORDERED: IPRATROPIUM/ALBUTEROL 0.5-2.5 MG/3 ML AMPUL NEB ONE ×2 (17:00→18:07)
[2017-07-01] MEDS ORDERED: ASPIRIN 81 MG TABLET, CHEWABLE PO ONE (17:30)
[2017-07-01 17:44] LABS: ALANINE AMINOTRANSFERASE 36 U/L (9-52); ALBUMIN 3.8 g/dL (3.5-5.0); ALKALINE PHOSPHATASE 53 U/L (38-126); ANION GAP 14 (5-19); ASPARTATE AMINO TRANSFERASE 20 U/L (14-36); BILIRUBIN,DIRECT 0.3 mg/dL (0.0-0.4); BILIRUBIN,TOTAL 0.3 mg/dL (0.2-1.3); BLOOD UREA NITROGEN 13 mg/dL (7-20); CALCIUM 9.4 mg/dL (8.4-10.2); CARBON DIOXIDE 21 mmol/L (22-30); CHLORIDE 106 mmol/L (98-107); CREATINE KINASE 155 U/L (30-135); GLUCOSE 157 mg/dL (75-110); POTASSIUM 4.5 mmol/L (3.6-5.0); SODIUM 140.9 mmol/L (137-145); TOTAL PROTEIN 6.4 g/dL (6.3-8.2)
[2017-07-01 17:46] LABS: ABSOLUTE BASOPHILS # (AUTO) 0.2 10^3/uL (0.0-0.2); ABSOLUTE EOSINOPHILS # (AUTO) 0.3 10^3/uL (0.0-0.6); ABSOLUTE LYMPHOCYTES (AUTO) 3.3 10^3/uL (0.5-4.7); ABSOLUTE MONOCYTES (AUTO) 1.1 10^3/uL (0.1-1.4); ABSOLUTE NEUT (AUTO) 10.7 10^3/uL (1.7-8.2); EOSINOPHILS % (AUTO) 1.8 % (0-6); HEMATOCRIT 39.5 % (36.0-47.0); HEMOGLOBIN 12.8 g/dL (12.0-15.5); LYMPHOCYTES % (AUTO) 21.4 % (13-45); MEAN CORPUSCULAR HEMOGLOBIN 23.3 pg (27.0-33.4); MEAN CORPUSCULAR HGB CONC 32.3 g/dL (32.0-36.0); MEAN CORPUSCULAR VOLUME 72 fl (80-97); MONOCYTES % (AUTO) 6.9 % (3-13); PLATELET COUNT 294 10^3/uL (150-450); RED BLOOD COUNT 5.47 10^6/uL (3.72-5.28); RED CELL DISTRIBUTION WIDTH 17.5 % (11.5-14.0); SEGMENTED NEUTROPHILS % (AUTO) 68.9 % (42-78); TOTAL CELLS COUNTED % (AUTO) 100 %; WHITE BLOOD COUNT 15.5 10^3/uL (4.0-10.5)
--- NOTE | 2017-07-01 17:54 | ER Document Report ---
ED Cardiac - General Mode of Arrival: Ambulatory Information source: Patient TRAVEL OUTSIDE OF THE [place] IN LAST 30 DAYS: No <ОЛЕГ BAHENA - Last Filed: 07/01/17 18:01> <DIAMANTE VICK - Last Filed: 07/01/17 20:02> - General Chief Complaint: Chest Pain Stated Complaint: CHEST PAIN,SHORTNESS OF BREATH Time Seen by Provider: 07/01/17 17:33 Notes: 36 y.o female with a PMHx of type 2 diabetes, HTN, GERD, CHF and asthma presents to the ED with CP and trouble breathing since last night. She states that when she was going to bed she felt like there was a pressure in her chest. She reports that she had a lot of coughing with SOB last night that worsened when she was lying down to sleep. Pt states that she went to her PCP today who preformed an EKG that was not normal and was told to come here. (ОЛЕГ BAHENA) - Related Data Allergies/Adverse Reactions: amoxicillin [Amoxicillin] Allergy (Verified 07/01/17 16:46) Penicillins Allergy (Verified 07/01/17 16:46) Bees/Wasp Allergy (Uncoded 07/01/17 16:46) Past Medical History - General Information source: Patient - Social History Smoking Status: Former Smoker - quit 3 months ago Cigarette use (# per day): No Chew tobacco use (# tins/day): No Smoking Education Provided: No Frequency of alcohol use: Occasional Drug Abuse: None Family History: Hypertension - Past Medical History Cardiac Medical History: Reports: Hx Congestive Heart Failure, Hx Hypercholesterolemia, Hx Hypertension Pulmonary Medical History: Reports: Hx Asthma, Hx COPD, Hx Pneumonia Neurological Medical History: Denies: Hx Seizures Endocrine Medical History: Reports: Hx Diabetes Mellitus Type 2. Denies: Hx Diabetes Mellitus Type 1 Renal/ Medical History: Reports: Hx Kidney Stones. Denies: Hx Peritoneal Dialysis GI Medical History: Denies: Hx Cirrhosis, Hx Crohn's Disease, Hx Hepatitis Psychiatric Medical History: Reports: Hx Anxiety, Hx Bipolar Disorder, Hx Depression Infectious Medical History: Denies: Hx Hepatitis Past Surgical History: Reports: Hx Abdominal Surgery - hernia, Hx Cholecystectomy, Hx Herniorrhaphy, Hx Umbilical Hernia - Immunizations Immunizations up to date: No Hx Diphtheria, Pertussis, Tetanus Vaccination: Yes Hx Pneumococcal Vaccination: 07/28/15 <ОЛЕГ BAHENA - Last Filed: 07/01/17 18:01> Review of Systems - Review of Systems Constitutional: No symptoms reported EENT: No symptoms reported Cardiovascular: See HPI, Chest pain - pressure Respiratory: See HPI, Cough, Short of breath Gastrointestinal: No symptoms reported Genitourinary: No symptoms reported Female Genitourinary: No symptoms reported Musculoskeletal: No symptoms reported Skin: No symptoms reported Hematologic/Lymphatic: No symptoms reported Neurological/Psychological: No symptoms reported -: Yes All other systems reviewed and negative <ОЛЕГ BAHENA - Last Filed: 07/01/17 18:01> Physical Exam <ОЛЕГ BAHENA - Last Filed: 07/01/17 18:01> <DIAMANTE VICK - Last Filed: 07/01/17 20:02> - Vital signs Vitals: Temp Pulse Resp BP Pulse Ox 97.9 F 91 22 H 145/98 H 95 07/01/17 16:53 07/01/17 16:53 07/01/17 16:53 07/01/17 16:53 07/01/17 16:53 - Notes Notes: General: Alert and orientated. Appears anxious, asking many questions. HEENT: Normocephalic. Atraumatic. PERRL. Extraocular movements intact. Oropharynx clear. Neck: Supple. Non-tender. Respiratory: Equal breath sounds bilaterally. Very faint wheezing. Pulse Ox 100 % on room air. Cardiovascular: Regular rate and rhythm. HR 89 bpm. Abdominal: Morbidly obese. Non-tender. No distension. Normal Bowel Sounds. Back: Non-tender. No deformity or step off. Extremities: Moves all four extremities. Upper extremities: Normal inspection. Normal ROM. Lower extremities: Normal inspection. No edema. Normal ROM. Neurological: Normal cognition. AAOx4. Normal speech. Psychological: Normal affect. Normal Mood. Skin: Warm. Dry. Normal color. (ОЛЕГ BAHENA) Course - Laboratory Result Diagrams: 07/01/17 17:05 07/01/17 17:05 <ОЛЕГ BAHENA - Last Filed: 07/01/17 18:01> - Laboratory Result Diagrams: 07/01/17 17:05 07/01/17 17:05 - Diagnostic Test Radiology reviewed: Image reviewed, Reports reviewed - Cardiomegaly without failure - EKG Interpretation by Me EKG shows normal: Sinus rhythm, Rougon. abnormal: Intervals - Borderline prolonged QT interval, QRS Complexes - Abnormal Q waves suggesting anterior infarct, ST-T Waves - Borderline T-wave abnormalities Rate: Normal - 91 Rhythm: NSR When compared to previous EKG there are: No significant change <DIAMANTE VICK - Last Filed: 07/01/17 20:02> - Re-evaluation Re-evalutation: 07/01/17 18:02 Excessive use of ED since December of 2014. She has had [address] angiograms done here and numerous Abdomen/Pelvis CTAs. Also seen here many times complaining of chest pain and chest pressure. (ОЛЕГ BAHENA) 07/01/17 19:56 Patient was sent here partly due to an abnormal EKG, they may not have priors to compare to, but her EKG today is unchanged from its baseline. The patient's troponin is in the indeterminate range as it frequently is. The chest x-ray today shows enlarged heart with no heart failure. The patient's pulse ox is 100% on room air. The EKG is unchanged from baseline. (DIAMANTE VICK) - Vital Signs Vital signs: Temp Pulse Resp BP Pulse Ox 97.9 F 91 18 123/79 99 07/01/17 16:53 07/01/17 16:53 07/01/17 18:01 07/01/17 19:01 07/01/17 18:01 - Laboratory Laboratory results interpreted by wi: 07/01/17 07/01/17 17:05 17:05 WBC 15.5 H RBC 5.47 H MCV 72 L MCH 23.3 L RDW 17.5 H Absolute Neutrophils 10.7 H Carbon Dioxide 21 L Glucose 157 H Creatine Kinase 155 H Discharge <ОЛЕГ BAHENA - Last Filed: 07/01/17 18:01> <DIAMANTE VICK - Last Filed: 07/01/17 20:02> - Discharge Clinical Impression: Chest pain Qualifiers: Chest pain type: unspecified Qualified Code(s): R07.9 - Chest pain, unspecified Asthma Qualifiers: Asthma severity: mild Asthma persistence: unspecified Asthma complication type : unspecified Qualified Code(s): J45.998 - Other asthma Condition: Stable Disposition: HOME, SELF-CARE Additional Instructions: Chest Pain of Unclear Cause The exact cause of your chest pain isn't clear. Fortunately, there is no evidence of a dangerous medical condition. Further testing may be required to find the source of the pain. Most often, we find that this pain is coming from the chest wall -- the muscles or rib joints in the chest. But chest pain can come from the lung and lung lining, the esophagus, the heart valves or heart lining, and even the stomach or gallbladder. Rest. Eat lightly until the pain is gone. We may prescribe medicine for pain and inflammation. You should call the physician immediately if the pain radiates to the shoulder, jaw or arms; if you start to run a fever or develop a cough; or if you develop shortness of breath, or other new or alarming symptoms. Lyndaibkel Attestation: 07/01/17 20:02 I personally performed the services described in the documentation, reviewed and edited the documentation which was dictated to the scribe in my presence, and it accurately records my words and actions. (DIAMANTE VICK) Lyndaibkel Documentation - Scribe Written by Dee:: Dee Rivero 07/01/2017 [id number] acting as scribe for :: [place] <ОЛЕГ BAHENA - Last Filed: 07/01/17 18:01>
[2017-07-01 17:56] LABS: CREATINE KINASE MB 1.09 ng/mL (<4.55)
--- NOTE | 2017-07-01 17:58 | RADIOLOGY REPORT (SQ) ---
EXAM DESCRIPTION: CHEST 2 VIEWS COMPLETED DATE/TIME: 07/01/2017 5:40 pm REASON FOR STUDY: SOB/CHEST PAIN COMPARISON: 04/23/2017. NUMBER OF VIEWS: Two view. TECHNIQUE: Frontal and lateral radiographic views of the chest acquired. LIMITATIONS: None. FINDINGS: LUNGS AND PLEURA: No opacities, masses or pneumothorax. No pleural effusion. MEDIASTINUM AND HILAR STRUCTURES: No masses. No contour abnormalities. HEART AND VASCULAR STRUCTURES: Heart enlarged without failure. Aorta normal for age. BONES: No acute findings. HARDWARE: None in the chest. OTHER: No other significant finding. IMPRESSION: CARDIAC ENLARGEMENT WITHOUT FAILURE. TECHNICAL DOCUMENTATION: JOB ID: [id number] [employer]- All Rights Reserved Reading location - IP/workstation name: [email or web address]
[2017-07-01 18:03] LABS: TROPONIN I 0.059 ng/mL
[2017-07-01] MEDS ORDERED: ALBUTEROL SULFATE 0.083% NEB 2.5 MG/3 ML AMPUL NEB ONE (18:03)
[2017-07-01 20:30] VITALS: BP 140/92
--- NOTE | 2017-07-01 21:22 | EKG REPORT ---
SEVERITY:- ABNORMAL ECG - SINUS RHYTHM ABNORMAL Q SUGGESTS ANTERIOR INFARCT BORDERLINE T WAVE ABNORMALITIES BORDERLINE PROLONGED QT INTERVAL : Confirmed by: Tan Mobley 01-Jul-2017 21:20:35
== END 2017-07-01 20:30 | disposition home or self-care (01) ==
LOC: ER 16:43
DX: J45.998 Other asthma (principal); R07.9 Chest pain, unspecified; E11.9 Type 2 diabetes mellitus without complications; K21.9 Gastro-esophageal reflux disease without esophagitis; I50.9 Heart failure, unspecified; I11.0 Hypertensive heart disease with heart failure; J44.9 Chronic obstructive pulmonary disease, unspecified; E78.00 Pure hypercholesterolemia, unspecified; Z91.030 Bee allergy status; Z87.891 Personal history of nicotine dependence; Z87.442 Personal history of urinary calculi; Z90.49 Acquired absence of other specified parts of digestive tract
CPT/HCPCS: 93005; 94640 ×2; 99285; 36415; 82553; 82550; 85025; 80053; 84484; 71046; 93010; J7620

== ENCOUNTER 2017-07-12 09:31 | Emergency (ER) | payer SELFPAY ==
[2017-07-12] MEDS ORDERED: IPRATROPIUM/ALBUTEROL 0.5-2.5 MG/3 ML AMPUL NEB ONE (09:51)
[2017-07-12] MEDS ORDERED: ASPIRIN 325 MG TABLET PO ONE (09:51)
--- NOTE | 2017-07-12 09:51 | ER Document Report ---
ED Medical Screen (RME) - General Chief Complaint: Chest Pain Stated Complaint: CHEST PAIN Time Seen by Provider: 07/12/17 09:44 Notes: Patient is a 36-year-old female, past medical history hypertension, A. fib, CHF , diabetes, asthma, presents with 6 hours of substernal chest pain and shortness of breath. When she takes deep breaths, she is feeling lightheaded. Denies history of PE. PE: Slightly labored breathing, mild tachycardia, end-expiratory wheezes. I have greeted and performed a rapid initial assessment of this patient. A comprehensive ED assessment and evaluation of the patient, analysis of test results and completion of the medical decision making process will be conducted by additional ED providers. TRAVEL OUTSIDE OF THE [place] IN LAST 30 DAYS: No - Related Data Allergies/Adverse Reactions: amoxicillin [Amoxicillin] Allergy (Verified 07/01/17 16:46) Penicillins Allergy (Verified 07/01/17 16:46) Bees/Wasp Allergy (Uncoded 07/01/17 16:46) Past Medical History - Social History Family history: CAD, DM, Hypertension, Malignancy - Past Medical History Cardiac Medical History: Reports: Hx Congestive Heart Failure, Hx Hypercholesterolemia, Hx Hypertension Pulmonary Medical History: Reports: Hx Asthma, Hx COPD, Hx Pneumonia Neurological Medical History: Denies: Hx Seizures Endocrine Medical History: Reports: Hx Diabetes Mellitus Type 2. Denies: Hx Diabetes Mellitus Type 1 Renal/ Medical History: Reports: Hx Kidney Stones. Denies: Hx Peritoneal Dialysis GI Medical History: Denies: Hx Cirrhosis, Hx Crohn's Disease, Hx Hepatitis Psychiatric Medical History: Reports: Hx Anxiety, Hx Bipolar Disorder, Hx Depression Infectious Medical History: Denies: Hx Hepatitis Past Surgical History: Reports: Hx Abdominal Surgery - hernia, Hx Cholecystectomy, Hx Herniorrhaphy, Hx Umbilical Hernia - Immunizations Immunizations up to date: No Hx Diphtheria, Pertussis, Tetanus Vaccination: Yes History of Influenza Vaccine for 12/2016 - 05/2017 Season: Yes Influenza Administration Date for 12/2016 - 05/2017 Season: 11/12/16 Physical Exam - Vital signs Vitals: Temp Pulse Resp BP Pulse Ox 98.8 F 99 18 173/109 H 94 07/12/17 09:43 07/12/17 09:43 07/12/17 09:43 07/12/17 09:43 07/12/17 09:43 Course - Vital Signs Vital signs: Temp Pulse Resp BP Pulse Ox 98.8 F 99 18 173/109 H 94 07/12/17 09:43 07/12/17 09:43 07/12/17 09:43 07/12/17 09:43 07/12/17 09:43
[2017-07-12] MEDS ORDERED: METHYLPREDNISOLONE INJ 125 MG/2 ML SDV IV ONE (10:27)
--- NOTE | 2017-07-12 10:27 | ER Document Report ---
ED General - General Chief Complaint: Chest Pain Stated Complaint: CHEST PAIN Time Seen by Provider: 07/12/17 09:44 Notes: 36-year-old female presents to the emergency department complaining of sore throat cough and chest tightness. States it started last night this got progressively worse patient does have asthma. Her albuterol inhaler is not helping her when she takes it. She claims of a burning throat worse when she swallows. She also complains of a lot of chest tightness. Difficulty breathing. Patient has been coughing complains of a lot of nasal congestion and sinus congestion. She has been having a lot of nasal drainage she has had chills. She has felt warm but has not measured a fever. She denies any calf pain or leg swelling. States this began gradually last night and has been progressively getting worse and comes here for evaluation. TRAVEL OUTSIDE OF THE [place] IN LAST 30 DAYS: No - Related Data Allergies/Adverse Reactions: amoxicillin [Amoxicillin] Allergy (Verified 07/12/17 09:53) Penicillins Allergy (Verified 07/12/17 09:53) Bees/Wasp Allergy (Uncoded 07/12/17 09:53) Past Medical History - Social History Smoking Status: Former Smoker Frequency of alcohol use: Occasional Drug Abuse: None Family History: Hypertension Patient has suicidal ideation: No Patient has homicidal ideation: No - Past Medical History Cardiac Medical History: Reports: Hx Atrial Fibrillation, Hx Congestive Heart Failure, Hx Hypercholesterolemia, Hx Hypertension Pulmonary Medical History: Reports: Hx Asthma, Hx COPD, Hx Pneumonia Neurological Medical History: Denies: Hx Seizures Endocrine Medical History: Reports: Hx Diabetes Mellitus Type 2. Denies: Hx Diabetes Mellitus Type 1 Renal/ Medical History: Reports: Hx Kidney Stones. Denies: Hx Peritoneal Dialysis GI Medical History: Denies: Hx Cirrhosis, Hx Crohn's Disease, Hx Hepatitis Psychiatric Medical History: Reports: Hx Anxiety, Hx Bipolar Disorder, Hx Depression Infectious Medical History: Denies: Hx Hepatitis Past Surgical History: Reports: Hx Abdominal Surgery - hernia, Hx Cholecystectomy, Hx Herniorrhaphy, Hx Umbilical Hernia - Immunizations Immunizations up to date: No Hx Diphtheria, Pertussis, Tetanus Vaccination: Yes Hx Pneumococcal Vaccination: 07/28/15 Review of Systems - Review of Systems EENT: Nose congestion, Nose discharge, Sinus pressure, Sinus discharge. denies : Double vision, Nose pain Cardiovascular: Chest pain, Dyspnea. denies: Edema Respiratory: Cough, Short of breath, Wheezing. denies: Hemoptysis Gastrointestinal: denies: Nausea, Vomiting Skin: denies: Rash -: Yes All other systems reviewed and negative Physical Exam - Vital signs Vitals: Temp Pulse Resp BP Pulse Ox 98.8 F 99 18 173/109 H 94 07/12/17 09:43 07/12/17 09:43 07/12/17 09:43 07/12/17 09:43 07/12/17 09:43 - Notes Notes: GENERAL_APPEARANCE: well_nourished, alert, cooperative, labored breathing VITALS: reviewed, see vital signs table. HEAD: no_swelling\tenderness on the head. EYES: PERRL, EOMI, conjunctiva_clear. NOSE: no_nasal_discharge. MOUTH: (-)decreased moisture. THROAT: no_tonsilar_inflammation, no_airway_obstruction. no_lymphadenopathy NECK: supple, no_neck_tenderness, (-)thyromegaly. BACK: no_back_tenderness. CHEST_WALL: no_chest_tenderness. LUNGS: Scattered_wheezing, no_rales, no_rhonchi, mild accessory muscle use, there air exchange bilateral. HEART: normal_rate, normal_rhythm, normal_S1, normal_S2, (-)S3, (-)S4, no_ murmur, no_rub. ABDOMEN: normal_BS, soft, no_abd_tenderness, (-)guarding, (-)rebound, no_ organomegaly, no_abd_masses. EXTREMITIES: good pulses in all_extremities, no_swelling\tenderness in the extremities, no_edema. SKIN: warm, dry, good_color, no_rash. MENTAL_STATUS: speech_clear, oriented_X_3, normal_affect, responds_ appropriately to questions. Course - Re-evaluation Re-evalutation: 07/12/17 10:26 36-year-old female presents to the ER with difficulty breathing chest tightness. Patient claims of sore throat cough congestion. She states this is made her asthma worse. We will get an EKG and lab work. My suspicion is low for PE and ACS is seems to be Edson in nature. This is exacerbating her asthma she will be given aerosol treatments here steroids. 07/12/17 14:59 The patient was monitored for 6 hours in the ER. We have done serial troponins they are negative and unchanged. The patient is feeling much better after aerosol treatments. I was going to give her steroids but she stated it makes her sugar go high and she refused it. She received a dose of Rocephin rapid strep was negative. Due to the patient's comorbidities and will treat her with antibiotics. This may likely just be asthmatic bronchitis. She is doing well she is on the computer eating Zaelab when I reevaluate her. I think she is safe for home. Suspicion is low for PE she has no oxygen requirements at this time no calf pain or leg tenderness. - Vital Signs Vital signs: Temp Pulse Resp BP Pulse Ox 98.8 F 99 16 153/88 H 97 07/12/17 09:43 07/12/17 09:43 07/12/17 14:01 07/12/17 14:01 07/12/17 14:01 - Laboratory Result Diagrams: 07/12/17 10:25 07/12/17 10:25 Laboratory results interpreted by me: 07/12/17 07/12/17 07/12/17 10:25 10:25 10:25 WBC 16.0 H RBC 5.49 H MCV 72 L MCH 23.3 L RDW 17.9 H Absolute Neutrophils 12.3 H Glucose 186 H NT-Pro-B Natriuret Pep 622 H - Diagnostic Test Radiology results interpreted by me: 07/12/17 14:59 Chest X-Ray 07/12/17 09:49 IMPRESSION: NO ACUTE RADIOGRAPHIC FINDING IN THE CHEST. - EKG Interpretation by Ma EKG shows normal: Sinus rhythm Rate: Normal When compared to previous EKG there are: No significant change Discharge - Discharge Clinical Impression: Asthma exacerbation Qualifiers: Asthma severity: moderate Asthma persistence: unspecified Qualified Code(s): J45.901 - Unspecified asthma with (acute) exacerbation Condition: Good Disposition: HOME, SELF-CARE Instructions: Asthma ([facility]) Additional Instructions: Please follow-up with your family doctor. If you develop a fever 101 or above or he began having difficulty breathing turn to the ER to be reevaluated. Prescriptions: Azithromycin [Zithromax 250 mg Tablet] 250 mg PO ASDIR PRN #6 tablet PRN Reason:
--- NOTE | 2017-07-12 10:27 | RADIOLOGY REPORT (SQ) ---
EXAM DESCRIPTION: CHEST 2 VIEWS COMPLETED DATE/TIME: 07/12/2017 10:12 am REASON FOR STUDY: SOB COMPARISON: Two-view chest 07/01/2017, CT chest 04/21/2017 EXAM PARAMETERS: NUMBER OF VIEWS: two views TECHNIQUE: Digital Frontal and Lateral radiographic views of the chest acquired. RADIATION DOSE: NA LIMITATIONS: none FINDINGS: LUNGS AND PLEURA: No opacities, masses or pneumothorax. No pleural effusion. MEDIASTINUM AND HILAR STRUCTURES: No masses or contour abnormalities. HEART AND VASCULAR STRUCTURES: Heart normal size. No evidence for failure. BONES: No acute findings. HARDWARE: None in the chest. OTHER: No other significant finding. IMPRESSION: NO ACUTE RADIOGRAPHIC FINDING IN THE CHEST. TECHNICAL DOCUMENTATION: JOB ID: [id number] [employer]- All Rights Reserved Reading location - IP/workstation name: [email or web address]
[2017-07-12 10:52] LABS: ABSOLUTE BASOPHILS # (AUTO) 0.1 10^3/uL (0.0-0.2); ABSOLUTE EOSINOPHILS # (AUTO) 0.3 10^3/uL (0.0-0.6); ABSOLUTE LYMPHOCYTES (AUTO) 2.4 10^3/uL (0.5-4.7); ABSOLUTE MONOCYTES (AUTO) 0.8 10^3/uL (0.1-1.4); ABSOLUTE NEUT (AUTO) 12.3 10^3/uL (1.7-8.2); BASOPHILS % (AUTO) 0.6 % (0-2); EOSINOPHILS % (AUTO) 1.8 % (0-6); HEMATOCRIT 39.7 % (36.0-47.0); HEMOGLOBIN 12.8 g/dL (12.0-15.5); LYMPHOCYTES % (AUTO) 15.3 % (13-45); MEAN CORPUSCULAR HEMOGLOBIN 23.3 pg (27.0-33.4); MEAN CORPUSCULAR HGB CONC 32.1 g/dL (32.0-36.0); MEAN CORPUSCULAR VOLUME 72 fl (80-97); MONOCYTES % (AUTO) 5.2 % (3-13); PLATELET COUNT 282 10^3/uL (150-450); RED BLOOD COUNT 5.49 10^6/uL (3.72-5.28); RED CELL DISTRIBUTION WIDTH 17.9 % (11.5-14.0); SEGMENTED NEUTROPHILS % (AUTO) 77.1 % (42-78); TOTAL CELLS COUNTED % (AUTO) 100 %
[2017-07-12 11:13] LABS: BLOOD UREA NITROGEN 13 mg/dL (7-20); CALCIUM 8.8 mg/dL (8.4-10.2); GLUCOSE 186 mg/dL (75-110)
[2017-07-12 11:14] LABS: ALANINE AMINOTRANSFERASE 21 U/L (9-52); ALKALINE PHOSPHATASE 59 U/L (38-126); ANION GAP 13 (5-19); ASPARTATE AMINO TRANSFERASE 20 U/L (14-36); BILIRUBIN,DIRECT 0.3 mg/dL (0.0-0.4); BILIRUBIN,TOTAL 0.7 mg/dL (0.2-1.3); CARBON DIOXIDE 25 mmol/L (22-30); CHLORIDE 104 mmol/L (98-107); CREATINE KINASE 135 U/L (30-135); LIPASE 48.9 U/L (23-300); POTASSIUM 4.1 mmol/L (3.6-5.0); SODIUM 141.8 mmol/L (137-145)
[2017-07-12 11:28] LABS: TROPONIN I 0.067 ng/mL
[2017-07-12] MEDS ORDERED: CEFTRIAXONE INJ 1000 MG VIAL IV ONE (12:05)
--- NOTE | 2017-07-12 14:29 | EKG REPORT ---
SEVERITY:- OTHERWISE NORMAL ECG - SINUS TACHYCARDIA : Confirmed by: Tan Mobley 12-Jul-2017 14:28:33
[2017-07-12 15:07] VITALS: BP 147/88
== END 2017-07-12 17:17 | disposition home or self-care (01) ==
LOC: ER 09:31
DX: J45.901 Unspecified asthma with (acute) exacerbation (principal); J44.9 Chronic obstructive pulmonary disease, unspecified; I10 Essential (primary) hypertension; E11.9 Type 2 diabetes mellitus without complications; J02.9 Acute pharyngitis, unspecified; R05 Cough; R07.89 Other chest pain; R09.81 Nasal congestion; R68.83 Chills (without fever); R06.02 Shortness of breath; Z87.891 Personal history of nicotine dependence; Z88.0 Allergy status to penicillin; Z91.030 Bee allergy status; Z91.038 Other insect allergy status; Z87.01 Personal history of pneumonia (recurrent)
CPT/HCPCS: 93005; 94640; 99285; 96365; 36415; 87040; 87070; 87880; 82550; 83690; 84703; 85025; 87077; 80053; 84484; 87186; 83880; 71046; 93010; J0696; J7620

== ENCOUNTER 2017-11-01 22:10 | Emergency (ER) | payer SELFPAY ==
--- NOTE | 2017-11-02 01:29 | ER Document Report ---
ED Medical Screen (RME) - General Chief Complaint: Chest Pain Stated Complaint: CHEST PAIN Time Seen by Provider: 11/02/17 01:23 Mode of Arrival: Wheelchair Information source: Patient Notes: Patient reports onset of chest pain and high blood pressure of 184/117 on home bp monitor approximately 1 hour prior to arrival. Patient reports the pain feels like a squeezing feeling in the center of her chest with some radiation to the right side of her chest. Patient reports right after the squeezing started she felt a fluttering sensation. Patient reports she took 4 baby aspirin and tried getting some rest however the pain persisted so she decided to come in and be seen. Patient currently reports chest pressure 2 out of 5 as well as sharp pain when she takes a deep breath. Patient has past medical history significant for hypertension, CHF, diabetes mellitus, asthma. Exam: Heart sounds S1-S2 present, no ectopy noted Reproducible tenderness to mid sternum. Lung sounds clear to auscultation bilaterally I have greeted and performed a rapid initial assessment of this patient. A comprehensive ED assessment and evaluation of the patient, analysis of test results and completion of the medical decision making process will be conducted by additional ED providers. Dictation of this chart was performed using voice recognition software; therefore, there may be some unintended grammatical errors. TRAVEL OUTSIDE OF THE [place] IN LAST 30 DAYS: No - Related Data Allergies/Adverse Reactions: amoxicillin [Amoxicillin] Allergy (Verified 07/12/17 09:53) Penicillins Allergy (Verified 07/12/17 09:53) Bees/Wasp Allergy (Uncoded 07/12/17 09:53) Past Medical History - Social History Family history: CAD, DM, Hypertension, Malignancy - Past Medical History Cardiac Medical History: Reports: Hx Atrial Fibrillation, Hx Congestive Heart Failure, Hx Hypercholesterolemia, Hx Hypertension Pulmonary Medical History: Reports: Hx Asthma, Hx COPD, Hx Pneumonia Neurological Medical History: Denies: Hx Seizures Endocrine Medical History: Reports: Hx Diabetes Mellitus Type 2. Denies: Hx Diabetes Mellitus Type 1 Renal/ Medical History: Reports: Hx Kidney Stones. Denies: Hx Peritoneal Dialysis GI Medical History: Denies: Hx Cirrhosis, Hx Crohn's Disease, Hx Hepatitis Psychiatric Medical History: Reports: Hx Anxiety, Hx Bipolar Disorder, Hx Depression Infectious Medical History: Denies: Hx Hepatitis Past Surgical History: Reports: Hx Abdominal Surgery - hernia, Hx Cholecystectomy, Hx Herniorrhaphy, Hx Umbilical Hernia - Immunizations Immunizations up to date: No Hx Diphtheria, Pertussis, Tetanus Vaccination: Yes History of Influenza Vaccine for 12/2016 - 05/2017 Season: Yes Influenza Administration Date for 12/2016 - 05/2017 Season: 11/12/16 Physical Exam - Vital signs Vitals: Temp Pulse Resp BP Pulse Ox 99.4 F 108 H 20 139/102 H 92 11/01/17 22:26 11/01/17 22:26 11/01/17 22:26 11/01/17 22:26 11/01/17 22:26 Course - Vital Signs Vital signs: Temp Pulse Resp BP Pulse Ox 98.2 F 92 30 H 143/93 H 97 11/02/17 00:42 11/02/17 00:42 11/02/17 00:42 11/02/17 00:42 11/02/17 00:42
--- NOTE | 2017-11-02 02:35 | ER Document Report ---
ED General - General Chief Complaint: Chest Pain Stated Complaint: CHEST PAIN Time Seen by Provider: 11/02/17 01:23 Mode of Arrival: Wheelchair Notes: Patient is a 36-year-old female presents with complaint of chest tightness and pressure on her chest. She feels a bit short of breath. She does have a history of asthma. She does not smoke. She has a history of CHF but no history of WI. No fevers. No vomiting. No diarrhea. No other complaints at this time. She has not used her inhaler today. She is overweight. She does have sleep apnea. She says she has been wearing her CPAP. TRAVEL OUTSIDE OF THE [place] IN LAST 30 DAYS: No - Related Data Allergies/Adverse Reactions: amoxicillin [Amoxicillin] Allergy (Verified 07/12/17 09:53) Penicillins Allergy (Verified 07/12/17 09:53) Bees/Wasp Allergy (Uncoded 07/12/17 09:53) Past Medical History - General Information source: Patient - Social History Smoking Status: Never Smoker Frequency of alcohol use: None Drug Abuse: None Family History: Hypertension - Past Medical History Cardiac Medical History: Reports: Hx Atrial Fibrillation, Hx Congestive Heart Failure, Hx Hypercholesterolemia, Hx Hypertension Pulmonary Medical History: Reports: Hx Asthma, Hx COPD, Hx Pneumonia Neurological Medical History: Denies: Hx Seizures Endocrine Medical History: Reports: Hx Diabetes Mellitus Type 2. Denies: Hx Diabetes Mellitus Type 1 Renal/ Medical History: Reports: Hx Kidney Stones. Denies: Hx Peritoneal Dialysis GI Medical History: Denies: Hx Cirrhosis, Hx Crohn's Disease, Hx Hepatitis Psychiatric Medical History: Reports: Hx Anxiety, Hx Bipolar Disorder, Hx Depression Infectious Medical History: Denies: Hx Hepatitis Past Surgical History: Reports: Hx Abdominal Surgery - hernia, Hx Cholecystectomy, Hx Herniorrhaphy, Hx Umbilical Hernia - Immunizations Immunizations up to date: No Hx Diphtheria, Pertussis, Tetanus Vaccination: Yes Hx Pneumococcal Vaccination: 07/28/15 Review of Systems - Review of Systems Notes: My Normal Review Basic REVIEW OF SYSTEMS: CONSTITUTIONAL : Denies fever, chills, or sweats. Denies recent illness. EENT: Denies eye, ear, throat, or mouth pain or symptoms. Denies nasal or sinus congestion. CARDIOVASCULAR: Chest pressure RESPIRATORY: Dyspnea. Wheezing. GASTROINTESTINAL: Denies abdominal pain. Denies nausea, vomiting, or diarrhea. Denies constipation. Last BM: GENITOURINARY: Denies difficulty urinating, painful urination, burning, frequency, or blood in urine. MUSCULOSKELETAL: Denies neck or back pain or joint pain or swelling. SKIN: Denies rash or skin lesions. NEUROLOGICAL: Denies altered mental status or loss of consciousness. Denies headache. Denies weakness or paralysis or loss of use of either side. Denies problems with gait or speech. Denies sensory or motor loss. ALL OTHER SYSTEMS REVIEWED AND NEGATIVE. Physical Exam - Vital signs Vitals: Temp Pulse Resp BP Pulse Ox 99.4 F 108 H 20 139/102 H 92 11/01/17 22:26 11/01/17 22:26 11/01/17 22:26 11/01/17 22:26 11/01/17 22:26 - Notes Notes: General Appearance: Well nourished, alert, cooperative, no acute distress, no obvious discomfort. Well-appearing. Vitals: reviewed, See vital signs table. Head: no swelling or tenderness to the head Eyes: PERRL, EOMI, Conjuctiva clear Mouth: No decreasd moisture Throat: No tonsillar inflammation, No airway obstruction, No lymphadenopathy Neck: Supple, no neck tenderness, No thyromegaly Lungs: diffuse wheezing, No rales, No rhonci, No accessory muscle use, fair air exchange bilaterally. Heart: Normal rate, Regular rythm, No murmur, no rub Abdomen: Normal BS, soft, No rigidity, No abdominal tenderness, No guarding, no rebound, no abdominal masses, no organomegaly Extremities: strength 5/5 in all extremities, good pulses in all extremities, no swelling or tenderness in the extremities, trace bilateral lower extremity edema. Skin: warm, dry, appropriate color, no rash Neuro: speech clear, oriented x 3, normal affect, responds appropriately to questions. Course - Re-evaluation Re-evalutation: 11/02/17 06:18 Wheezing has resolved. Patient looks well. Delta troponin is pending at this time. 11/02/17 06:57 Delta troponin is pending. If delta troponin has not decreased by at least 50% the patient be discharged home. Her presentation is very consistent with her previous presentations to the hospital where she has wheezing and exacerbation to create chest tightness. EKG shows no concerning findings. Dictation of this chart was performed using voice recognition software; therefore, there may be some unintended grammatical errors. - Vital Signs Vital signs: Temp Pulse Resp BP Pulse Ox 98.2 F 92 15 141/73 H 92 11/02/17 00:42 11/02/17 00:42 11/02/17 06:02 11/02/17 06:01 11/02/17 06:02 - Laboratory Result Diagrams: 11/02/17 02:38 11/02/17 02:38 Laboratory results interpreted by me: 11/02/17 11/02/17 02:38 02:38 WBC 11.1 H MCV 74 L MCH 24.1 L RDW 16.7 H Glucose 262 H Creatine Kinase 159 H - EKG Interpretation by Me Additional EKG results interpreted by me: 11/02/17 02:35 EKG is reviewed and interpreted by me. EKG shows sinus tachycardia with a rate of [address] segment elevation or depression. No ischemic T wave inversions. [place] interval, QRS duration, QTc intervals are within normal range. Old EKG for comparison is from July 12, 2017. Discharge - Discharge Clinical Impression: Chest tightness, Diabetes mellitus type 2 in obese, Morbid obesity with BMI of 40.0-44.9, adult Asthma exacerbation Qualifiers: Asthma severity: unspecified severity Asthma persistence: intermittent Qualified Code(s): J45.21 - Mild intermittent asthma with (acute) exacerbation Additional Instructions: Please use the inhaler as 1 puff every 4 hours as needed for wheezing. please follow up with your doctor in 2 days for reevaluation. Please return to the ER if you have difficulty breathing, persistent chest pain, fevers, or feel that you are worsening in any way.
[2017-11-02] MEDS ORDERED: ALBUTEROL SULFATE 0.083% NEB 2.5 MG/3 ML AMPUL NEB ONE ×2 (02:42→04:32)
[2017-11-02 02:50] LABS: ABSOLUTE BASOPHILS # (AUTO) 0.1 10^3/uL (0.0-0.2); ABSOLUTE EOSINOPHILS # (AUTO) 0.2 10^3/uL (0.0-0.6); ABSOLUTE LYMPHOCYTES (AUTO) 2.3 10^3/uL (0.5-4.7); ABSOLUTE MONOCYTES (AUTO) 0.9 10^3/uL (0.1-1.4); ABSOLUTE NEUT (AUTO) 7.6 10^3/uL (1.7-8.2); BASOPHILS % (AUTO) 1.2 % (0-2); HEMATOCRIT 38.2 % (36.0-47.0); HEMOGLOBIN 12.5 g/dL (12.0-15.5); LYMPHOCYTES % (AUTO) 20.3 % (13-45); MEAN CORPUSCULAR HEMOGLOBIN 24.1 pg (27.0-33.4); MEAN CORPUSCULAR HGB CONC 32.7 g/dL (32.0-36.0); MEAN CORPUSCULAR VOLUME 74 fl (80-97); MONOCYTES % (AUTO) 8.5 % (3-13); PLATELET COUNT 239 10^3/uL (150-450); RED BLOOD COUNT 5.18 10^6/uL (3.72-5.28); RED CELL DISTRIBUTION WIDTH 16.7 % (11.5-14.0); TOTAL CELLS COUNTED % (AUTO) 100 %; WHITE BLOOD COUNT 11.1 10^3/uL (4.0-10.5)
--- NOTE | 2017-11-02 02:54 | RADIOLOGY REPORT (SQ) ---
EXAM DESCRIPTION: XR CHEST 1 VIEW COMPLETED DATE/TME: 11/02/2017 01:26 CLINICAL HISTORY: chest pain COMPARISON: 07/12/2017 FINDINGS: Single frontal view of the chest. The cardiomediastinal silhouette has normal size and contour. No consolidation, pneumothorax, or pleural effusion. Low lung volumes. No displaced rib fractures identified. Upper abdominal soft tissues are unremarkable. IMPRESSION: 1. No acute pulmonary process identified.
[2017-11-02 03:06] LABS: ALANINE AMINOTRANSFERASE 24 U/L (9-52); ALBUMIN 3.7 g/dL (3.5-5.0); ALKALINE PHOSPHATASE 53 U/L (38-126); ANION GAP 12 (5-19); ASPARTATE AMINO TRANSFERASE 17 U/L (14-36); BILIRUBIN,DIRECT 0.3 mg/dL (0.0-0.4); BILIRUBIN,TOTAL 0.6 mg/dL (0.2-1.3); BLOOD UREA NITROGEN 13 mg/dL (7-20); CALCIUM 8.8 mg/dL (8.4-10.2); CARBON DIOXIDE 22 mmol/L (22-30); CHLORIDE 106 mmol/L (98-107); CREATINE KINASE 159 U/L (30-135); GLUCOSE 262 mg/dL (75-110); POTASSIUM 4.3 mmol/L (3.6-5.0); SODIUM 140.1 mmol/L (137-145); TOTAL PROTEIN 6.5 g/dL (6.3-8.2)
[2017-11-02] MEDS ORDERED: ALBUTEROL SULFATE HFA (90 MCG/PUFF) 8 GM MDI (1 MDI/ER DISP) IH ONE (06:24)
[2017-11-02 08:09] VITALS: BP 144/88
--- NOTE | 2017-11-02 08:40 | EKG REPORT ---
SEVERITY:- ABNORMAL ECG - SINUS TACHYCARDIA ABNORMAL Q SUGGESTS ANTERIOR INFARCT BORDERLINE T WAVE ABNORMALITIES : Confirmed by: Tan Mobley 02-Nov-2017 08:38:58
== END 2017-11-02 08:09 | disposition home or self-care (01) ==
LOC: ER 22:10
DX: J45.21 Mild intermittent asthma with (acute) exacerbation (principal); R07.9 Chest pain, unspecified; E66.01 Morbid (severe) obesity due to excess calories; Z68.41 Body mass index [BMI] 40.0-44.9, adult; R06.02 Shortness of breath; J45.909 Unspecified asthma, uncomplicated; I50.9 Heart failure, unspecified; I10 Essential (primary) hypertension; J44.9 Chronic obstructive pulmonary disease, unspecified; E11.9 Type 2 diabetes mellitus without complications
CPT/HCPCS: 93005; 94640; 99285; 36415; 82553; 82550; 85025; 80053; 84484; 71045; 93010; J3490

== ENCOUNTER 2017-11-18 13:45 | Inpatient (IN) | payer SELFPAY ==
[2017-11-18] MEDS ORDERED: METHYLPREDNISOLONE INJ 125 MG/2 ML SDV ONE (14:04)
[2017-11-18] MEDS ORDERED: METHYLPREDNISOLONE INJ 125 MG/2 ML SDV IV ONE (14:06)
[2017-11-18] MEDS ORDERED: IPRATROPIUM/ALBUTEROL 0.5-2.5 MG/3 ML AMPUL NEB ONE ×2 (14:33→15:51)
--- NOTE | 2017-11-18 14:49 | RADIOLOGY REPORT (SQ) ---
EXAM DESCRIPTION: CHEST SINGLE VIEW COMPLETED DATE/TIME: 11/18/2017 2:24 pm REASON FOR STUDY: Short of breath and asthma. COMPARISON: 11/02/2017 EXAM PARAMETERS: NUMBER OF VIEWS: One view. TECHNIQUE: Single frontal radiographic view of the chest acquired. RADIATION DOSE: NA LIMITATIONS: Patient has made a shallow inspiration. FINDINGS: LUNGS AND PLEURA: No opacities, masses or pneumothorax. No pleural effusion. MEDIASTINUM AND HILAR STRUCTURES: No masses. Contour normal. HEART AND VASCULAR STRUCTURES: The configuration of the heart mediastinal structures is unchanged BONES: No acute findings. HARDWARE: None in the chest. OTHER: No other significant finding. IMPRESSION: NO ACUTE RADIOGRAPHIC FINDING IN THE CHEST. TECHNICAL DOCUMENTATION: JOB ID: [id number] Novel- All Rights Reserved Reading location - IP/workstation name: [email or web address]
[2017-11-18] MEDS ORDERED: MAGNESIUM SULFATE/D5W 1 GM/100 ML RTUPB IV ONE (15:52)
--- NOTE | 2017-11-18 16:06 | ER Document Report ---
ED Respiratory Problem - General Chief Complaint: Shortness Of Breath Stated Complaint: SHORTNESS OF BREATH Time Seen by Provider: 11/18/17 14:10 Notes: Patient has a history of asthma. She says that she has been having difficulty breathing and wheezing along with a cough since Tuesday. She is producing yellow phlegm. Think she had a fever last night. Breathing was worse today than last night. She has home nebulizers and has had 3 of those today before leaving home with EMS. On the way here, she received a couple of albuterol nebulizer treatments. Has had some nausea and vomiting. Occasional chest pressures in the center of her chest.. TRAVEL OUTSIDE OF THE [place] IN LAST 30 DAYS: No - Related Data Allergies/Adverse Reactions: amoxicillin [Amoxicillin] Allergy (Verified 07/12/17 09:53) Penicillins Allergy (Verified 07/12/17 09:53) Bees/Wasp Allergy (Uncoded 07/12/17 09:53) Past Medical History - Social History Smoking Status: Unknown if Ever Smoked Cigarette use (# per day): No Frequency of alcohol use: None Drug Abuse: None Family History: Reviewed & Not Pertinent, Hypertension Patient has suicidal ideation: No Patient has homicidal ideation: No - Past Medical History Cardiac Medical History: Reports: Hx Atrial Fibrillation, Hx Congestive Heart Failure, Hx Hypercholesterolemia, Hx Hypertension Pulmonary Medical History: Reports: Hx Asthma, Hx COPD, Hx Pneumonia Endocrine Medical History: Reports: Hx Diabetes Mellitus Type 1, Hx Diabetes Mellitus Type 2 Renal/ Medical History: Reports: Hx Kidney Stones GI Medical History: Denies: Hx Cirrhosis, Hx Crohn's Disease, Hx Hepatitis Psychiatric Medical History: Reports: Hx Anxiety, Hx Bipolar Disorder, Hx Depression Past Surgical History: Reports: Hx Abdominal Surgery - hernia, Hx Cholecystectomy, Hx Herniorrhaphy, Hx Umbilical Hernia - Immunizations Immunizations up to date: No Hx Diphtheria, Pertussis, Tetanus Vaccination: Yes Hx Pneumococcal Vaccination: 07/28/15 Review of Systems - Review of Systems Notes: REVIEW OF SYSTEMS: CONSTITUTIONAL : Fever last night. EENT: Denies eye, ear, nose or mouth or throat pain or other symptoms. CARDIOVASCULAR: Occasional pain across the anterior chest. RESPIRATORY: See HPI. GASTROINTESTINAL: Nausea and vomiting. No diarrhea. GENITOURINARY: Denies difficulty or painful urinating, urinary frequency, blood in urine. MUSCULOSKELETAL: Denies back or neck pain. Denies joint pain or swelling. SKIN: Denies rash or skin lesions. NEUROLOGICAL: Denies LOC or altered mental status. Denies headache. Denies sensory loss or motor deficits. ALL OTHER SYSTEMS REVIEWED AND NEGATIVE. Physical Exam - Vital signs Vitals: Temp Resp Pulse Ox 98.1 F 27 H 89 L 11/18/17 13:59 11/18/17 13:59 11/18/17 13:59 Interpretation: Normal Notes: PHYSICAL EXAMINATION: GENERAL: Anxious. HEAD: Atraumatic, normocephalic. EYES: Pupils equal round and reactive to light, extraocular movements intact. ENT: oropharynx clear without exudates. Moist mucous membranes. NECK: Normal range of motion, supple. LUNGS" diffuse expiratory wheezes throughout the lung adams on both sides and both anterior and posterior. O2 sat in the low 90s on room air HEART: Regular rate and rhythm without murmurs. ABDOMEN: Soft, nontender. No guarding or rebound. No masses. BACK: No tenderness throughout entire back. EXTREMITIES: Normal range of motion without pain. No peripheral edema present. Negative Homans bilaterally. NEUROLOGICAL: Normal speech, normal gait. Normal sensory, motor, and reflex exams. Awake, alert, and oriented x3. Cranial nerves normal. PSYCH: Normal mood, normal affect. SKIN: Warm, dry, no rashes. Course - Re-evaluation Re-evalutation: 11/18/17 16:08 Patient was given Solu-Medrol 125 mg IV. She was given a couple of DuoNeb's. Still seem to have about the same amount of wheezing. Magnesium IV is being started. - Vital Signs Vital signs: Temp Pulse Resp BP Pulse Ox 98.2 F 35 H 143/94 H 94 11/18/17 16:18 11/18/17 16:26 11/18/17 14:41 11/18/17 16:26 - Laboratory Result Diagrams: 11/18/17 14:03 11/18/17 14:03 Laboratory results interpreted by me: 11/18/17 11/18/17 11/18/17 14:03 14:03 14:03 WBC 13.1 H RBC 5.59 H MCV 74 L MCH 24.1 L RDW 16.6 H Absolute Neutrophils 8.9 H Glucose 252 H Direct Bilirubin 0.5 H NT-Pro-B Natriuret Pep 1070 H - Diagnostic Test Radiology results interpreted by me: 11/18/17 16:10 Chest x-ray is normal. - EKG Interpretation by Me EKG shows normal: Sinus rhythm Rate: Normal - Heart rate 90 Critical Care Note - Critical Care Note Total time excluding time spent on procedures (mins): 60 Discharge - Discharge Clinical Impression: Status asthmaticus, Asthma exacerbation Condition: Good Disposition: ADMITTED INPATIENT Admitting Provider: Hospitalist Unit Admitted: [facility]
[2017-11-18] MEDS ORDERED: ALBUTEROL SULFATE 0.083% NEB 2.5 MG/3 ML AMPUL NEB PRN (16:46)
[2017-11-18 17:01] LABS: ABSOLUTE EOSINOPHILS # (AUTO) 0.2 10^3/uL (0.0-0.6); ABSOLUTE LYMPHOCYTES (AUTO) 3.3 10^3/uL (0.5-4.7); ABSOLUTE MONOCYTES (AUTO) 0.6 10^3/uL (0.1-1.4); ABSOLUTE NEUT (AUTO) 8.9 10^3/uL (1.7-8.2); BASOPHILS % (AUTO) 0.3 % (0-2); EOSINOPHILS % (AUTO) 1.5 % (0-6); HEMATOCRIT 41.6 % (36.0-47.0); HEMOGLOBIN 13.5 g/dL (12.0-15.5); LYMPHOCYTES % (AUTO) 25.3 % (13-45); MEAN CORPUSCULAR HEMOGLOBIN 24.1 pg (27.0-33.4); MEAN CORPUSCULAR HGB CONC 32.4 g/dL (32.0-36.0); MEAN CORPUSCULAR VOLUME 74 fl (80-97); MONOCYTES % (AUTO) 4.8 % (3-13); PLATELET COUNT 306 10^3/uL (150-450); RED BLOOD COUNT 5.59 10^6/uL (3.72-5.28); RED CELL DISTRIBUTION WIDTH 16.6 % (11.5-14.0); SEGMENTED NEUTROPHILS % (AUTO) 68.1 % (42-78); TOTAL CELLS COUNTED % (AUTO) 100 %; WHITE BLOOD COUNT 13.1 10^3/uL (4.0-10.5)
[2017-11-18] MEDS ORDERED: GLUCAGON,HUMAN RECOMB 1 MG INJ IM PRN ×2 (17:05→17:08)
[2017-11-18] MEDS ORDERED: DEXTROSE 40% GEL 15 GM TUBE PO PRN ×4 (17:05→17:08)
[2017-11-18] MEDS ORDERED: DEXTROSE 50%-WATER 25 GM/50 ML DISP.SYRIN IV PRN ×4 (17:05→17:08)
[2017-11-18 17:08] LABS: ALANINE AMINOTRANSFERASE 37 U/L (9-52); ALBUMIN 3.7 g/dL (3.5-5.0); ALKALINE PHOSPHATASE 54 U/L (38-126); ANION GAP 11 (5-19); ASPARTATE AMINO TRANSFERASE 30 U/L (14-36); BILIRUBIN,DIRECT 0.5 mg/dL (0.0-0.4); BILIRUBIN,TOTAL 0.6 mg/dL (0.2-1.3); BLOOD UREA NITROGEN 11 mg/dL (7-20); CALCIUM 9.3 mg/dL (8.4-10.2); CARBON DIOXIDE 22 mmol/L (22-30); CHLORIDE 104 mmol/L (98-107); GLUCOSE 252 mg/dL (75-110); POTASSIUM 4.4 mmol/L (3.6-5.0); SODIUM 137.2 mmol/L (137-145); TOTAL PROTEIN 6.8 g/dL (6.3-8.2)
[2017-11-18] MEDS ORDERED: HYDRALAZINE HCL INJ/PF 20 MG/1 ML SDV IV PRN (17:11)
[2017-11-18 17:21] LABS: CREATINE KINASE MB 2.11 ng/mL (<4.55)
[2017-11-18 17:27] LABS: TROPONIN I 0.06 ng/mL
[2017-11-18] MEDS: INSULIN LISPRO 100 UNIT/ML 3 ML VIAL SUBCUT PRN (18:02)
[2017-11-18] MEDS: LEVALBUTEROL HCL NEB 1.25 MG/3 ML AMPUL NEB SCH ×2 (18:54→20:26)
--- NOTE | 2017-11-18 19:16 | EKG REPORT ---
SEVERITY:- ABNORMAL ECG - SINUS RHYTHM ABNORMAL Q SUGGESTS ANTERIOR INFARCT BORDERLINE T WAVE ABNORMALITIES : Confirmed by: Eder John MD 18-Nov-2017 19:16:11
[2017-11-18] MEDS: METHYLPREDNISOLONE INJ 40 MG/1 ML SDV IV SCH (21:33)
[2017-11-18] MEDS: HEPARIN SOD (PORCINE) 5,000 UNIT/ML 1 ML SYRINGE SUBCUT SCH (21:33)
--- NOTE | 2017-11-18 23:35 | PDOC H&P ---
History of Present Illness Admission Date/PCP: 11/18/17 16:41 Patient complains of: dyspnea History of Present Illness: DAYTON MENDOZA is a 36 year old female who presented to the ER with a 5 day history of progressively worsening dyspnea. She admits that she began with mild symptoms of dyspnea and cough 5 days ago and gradually the dyspnea has become severe and the cough has become productive of thick yellowish mucus. She has experienced severe wheezing as well as subjective fever and chills for the last one to two days and has also noted orthopnea and worsening intolerance of even minimal activity. She admits numerous similar episodes in the past with her COPD and acknowledges that she was formerly a very heavy smoker (3PPD). She tried using/overusing her home nebulizer treatments over the last three days without significant benefit. In the ER she was treated with multiple nebulizer treatments and IV steroids as well as IV magnesium ans showed modest improvement. Her wheezing and dyspnea were still significant and she was admitted for further treatment. Past Medical History Cardiac Medical History: Reports: Atrial Fibrillation, Congestive Heart Failure , Hyperlipidema, Hypertension Pulmonary Medical History: Reports: Asthma, Chronic Obstructive Pulmonary Disease (COPD), Pneumonia Endocrine Medical History: Reports: Diabetes Mellitus Type 1, Diabetes Mellitus Type 2 GI Medical History: Denies: Cirrhosis, Crohn's Disease, Hepatitis Psychiatric Medical History: Reports: Bipolar Disorder, Depression Past Surgical History Past Surgical History: Reports: Cholecystectomy, Herniorrhaphy Social History Smoking Status: Former Smoker Last Time Smoked: June Frequency of Alcohol Use: Occasional Hx Recreational Drug Use: No Drugs: None Hx Prescription Drug Abuse: No Family History Family History: CAD, DM, Hypertension, Malignancy Parental Family History Reviewed: Yes Children Family History Reviewed: No Sibling(s) Family History Reviewed.: Yes Medication/Allergy Home Medications: Albuterol Sulfate [Albuterol Sulfate 2.5mg/3 mL] 1 vial IH TIDP PRN 11/18/17 Albuterol Sulfate [Proair HFA] 2 puff IH TID 11/18/17 Dapagliflozin Propanediol [Farxiga] 10 mg PO BID 11/18/17 Diltiazem HCl [Cardizem Cd 180 mg Capsule] 180 mg PO Q12 11/18/17 Fluticasone/Salmeterol [Advair 500-50 Diskus 28 Dose] 1 inh IH Q12 11/18/17 Glipizide [Glocotrol 10 Mg Tablet] 10 mg PO BID 11/18/17 Insulin Glargine,Hum.rec.anlog [Lantus Solostar] 65 unit SQ QAM 11/18/17 Liraglutide [Victoza 2-Bryce] 0.6 mg SQ BID 11/18/17 Lisinopril/Hydrochlorothiazide [Lisinopril-Hctz 20-12.5 mg Tab] 1 each PO BID Metformin HCl [Glucophage] 1,000 mg PO BID 11/18/17 Metoprolol Succinate [Toprol Xl 25 mg Tab.sr] 37.5 mg PO Q12 11/18/17 Allergies/Adverse Reactions: amoxicillin [Amoxicillin] Allergy (Verified 07/12/17 09:53) Penicillins Allergy (Verified 07/12/17 09:53) Bees/Wasp Allergy (Uncoded 07/12/17 09:53) Review of Systems Constitutional: PRESENT: chills, fever(s), weakness Eyes: ABSENT: visual disturbances, other - eye pain Ears: ABSENT: hearing changes, other - ear pain Nose, Mouth, and Throat: ABSENT: sore throat, vertigo Cardiovascular: PRESENT: dyspnea on exertion, orthropnea. ABSENT: chest pain, edema, palpitations Respiratory: PRESENT: cough, dyspnea, sputum. ABSENT: hemoptysis Gastrointestinal: ABSENT: abdominal pain, constipation, diarrhea, dysphagia, heartburn, nausea, vomiting Genitourinary: ABSENT: dysuria, hematuria Integumentary: ABSENT: pruritus, rash Neurological: ABSENT: confusion, focal weakness, memory loss Psychiatric: ABSENT: anxiety, depression Endocrine: ABSENT: cold intolerance, heat intolerance, polydipsia, polyphagia, polyuria Hematologic/Lymphatic: ABSENT: easy bleeding, easy bruising Physical Exam Vital Signs: Temp Pulse Resp BP Pulse Ox 98.3 F 96 24 H 158/89 H 96 11/18/17 19:34 11/18/17 20:27 11/18/17 20:27 11/18/17 19:34 11/18/17 20:27 General appearance: PRESENT: mild distress, morbidly obese Head exam: PRESENT: atraumatic, normocephalic Eye exam: PRESENT: conjunctiva pink. ABSENT: scleral icterus Ear exam: PRESENT: normal external ear exam. ABSENT: drainage Mouth exam: PRESENT: neck supple, tongue midline Neck exam: PRESENT: full ROM. ABSENT: JVD, tracheal deviation Respiratory exam: PRESENT: accessory muscle use, decreased breath sounds, prolonged expiratory phas, retraction, symmetrical, tachypnea, wheezes. ABSENT : chest wall tenderness, crackles, rales, rhonchi, stridor Cardiovascular exam: PRESENT: RRR. ABSENT: clicks, diastolic murmur, gallop, rubs, systolic murmur Pulses: PRESENT: normal carotid pulses, normal radial pulses, normal dorsalis pedis pul Vascular exam: PRESENT: normal capillary refill. ABSENT: pallor GI/Abdominal exam: PRESENT: normal bowel sounds, soft. ABSENT: distended, tenderness Extremities exam: ABSENT: joint swelling, pedal edema Musculoskeletal exam: PRESENT: full ROM, normal inspection Neurological exam: PRESENT: alert, awake, oriented to person, oriented to place , oriented to time, oriented to situation, CN II-XII grossly intact. ABSENT: motor sensory deficit Psychiatric exam: PRESENT: appropriate affect, normal mood Skin exam: ABSENT: jaundice, rash, urticaria Results Impressions: Chest X-Ray 11/18/17 14:10 IMPRESSION: NO ACUTE RADIOGRAPHIC FINDING IN THE CHEST. Assessment & Plan - Diagnosis (1) Acute and chronic respiratory failure with hypoxia Is this a current diagnosis for this admission?: Yes Plan: Continue an agressive pulmonary toilet and IV steroids. Monitor progress closely. (2) Insulin dependent type 2 diabetes mellitus, uncontrolled Is this a current diagnosis for this admission?: Yes Plan: SSI insulin to aid in reducing the hyperglycemia that will result with steroid usage for her respiratory status (3) Morbid obesity with BMI of 40.0-44.9, adult Is this a current diagnosis for this admission?: Yes Plan: Obesity complicates the resipratory situation but htis is a chronic problem. Encourage weight loss for overall health improvement. - Time Time Spent: Greater than 70 Minutes Medications reviewed and adjusted accordingly: Yes Anticipated discharge: Home
[2017-11-18] MEDS ORDERED: INSULIN LISPRO 100 UNIT/ML 3 ML VIAL SUBCUT ONE ×2 (23:45→23:50)
[2017-11-19] MEDS: LEVALBUTEROL HCL NEB 1.25 MG/3 ML AMPUL NEB SCH ×4 (01:31→19:49)
[2017-11-19] MEDS: INSULIN LISPRO 100 UNIT/ML 3 ML VIAL SUBCUT PRN ×3 (02:36→11:57)
[2017-11-19] MEDS: INSULIN GLARGINE,HUM.REC.ANLOG 300 UNIT/3 ML INSULN.PEN SUBCUT SCH (02:37)
[2017-11-19 05:22] LABS: ABSOLUTE LYMPHOCYTES (AUTO) 1.5 10^3/uL (0.5-4.7); ABSOLUTE MONOCYTES (AUTO) 0.5 10^3/uL (0.1-1.4); BASOPHILS % (AUTO) 0.2 % (0-2); HEMATOCRIT 39.8 % (36.0-47.0); HEMOGLOBIN 12.7 g/dL (12.0-15.5); MEAN CORPUSCULAR HEMOGLOBIN 23.3 pg (27.0-33.4); MEAN CORPUSCULAR HGB CONC 31.8 g/dL (32.0-36.0); MEAN CORPUSCULAR VOLUME 74 fl (80-97); PLATELET COUNT 304 10^3/uL (150-450); RED BLOOD COUNT 5.42 10^6/uL (3.72-5.28); RED CELL DISTRIBUTION WIDTH 16.6 % (11.5-14.0); SEGMENTED NEUTROPHILS % (AUTO) 87.8 % (42-78); TOTAL CELLS COUNTED % (AUTO) 100 %
[2017-11-19 05:43] LABS: ANION GAP 10 (5-19); BLOOD UREA NITROGEN 13 mg/dL (7-20); CALCIUM 9.6 mg/dL (8.4-10.2); CARBON DIOXIDE 23 mmol/L (22-30); CHLORIDE 103 mmol/L (98-107); GLUCOSE 312 mg/dL (75-110); POTASSIUM 4.7 mmol/L (3.6-5.0); SODIUM 135.7 mmol/L (137-145)
[2017-11-19] MEDS: METHYLPREDNISOLONE INJ 40 MG/1 ML SDV IV SCH ×3 (06:21→21:27)
[2017-11-19] MEDS: HEPARIN SOD (PORCINE) 5,000 UNIT/ML 1 ML SYRINGE SUBCUT SCH ×3 (06:22→21:25)
[2017-11-19 11:51] LABS: FREE T3 2.27 pg/mL (2.77-5.27); FREE T4 (FREE THYROXINE) 1.18 ng/dL (0.78-2.19)
--- NOTE | 2017-11-19 12:54 | PDOC PROGRESS REPORT ---
Subjective Progress Note for:: 11/19/17 Subjective:: DAYTON MENDOZA is a 36 year old female who presented to the ER with a 5 day history of progressively worsening dyspnea. She admits that she began with mild symptoms of dyspnea and cough 5 days ago and gradually the dyspnea has become severe and the cough has become productive of thick yellowish mucus. She has experienced severe wheezing as well as subjective fever and chills for the last one to two days and has also noted orthopnea and worsening intolerance of even minimal activity. She admits numerous similar episodes in the past with her COPD and acknowledges that she was formerly a very heavy smoker (3PPD). She tried using/overusing her home nebulizer treatments over the last three days without significant benefit. In the ER she was treated with multiple nebulizer treatments and IV steroids as well as IV magnesium ans showed modest improvement. Her wheezing and dyspnea were still significant and she was admitted for further treatment. 11/19/17: Dayton states that she feels somewhat better today than she did yesterday but she still feels like she is not breathing nearly as well as she does normally. She continues to have a moderate cough and continues to expectorate some yellowish mucus. She feels like she is moving more air but is wheezing more loudly than before, and she denies having fever or chills since being admitted. She does note that her blood sugar is significantly elevated as it is every time she gets steroids for an exacerbation of her COPD. Reason For Visit: Acute exacerbation of COPD Physical Exam Vital Signs: Temp Pulse Resp BP Pulse Ox 98.4 F 87 22 H 158/96 H 97 11/19/17 11:41 11/19/17 11:41 11/19/17 11:41 11/19/17 11:41 11/19/17 11:41 Intake & Output 11/18/17 11/19/17 11/20/17 06:59 06:59 06:59 Intake Total 672 375 Output Total 3060 1900 Balance -1977 Weight 132 kg General appearance: PRESENT: cooperative, mild distress - Mild respiratory distress with tachypnea. Patient is speaking in short sentences but must break her sentence in order to express more complex thought., morbidly obese Head exam: PRESENT: atraumatic, normocephalic Eye exam: PRESENT: conjunctiva pink. ABSENT: conjunctival injection Ear exam: PRESENT: normal external ear exam. ABSENT: drainage Mouth exam: PRESENT: neck supple, tongue midline Neck exam: ABSENT: thyromegaly, tracheal deviation Respiratory exam: PRESENT: prolonged expiratory phas, rhonchi - Scattered throughout all adams, symmetrical, tachypnea, wheezes - Wheezes are increased in volume from previous exam due to improved air movement., other - Breath sounds are improved with significant improvement in air movement to a fair to moderate degree of air movement today. Cardiovascular exam: PRESENT: RRR. ABSENT: clicks, gallop, rubs Vascular exam: PRESENT: normal capillary refill. ABSENT: pallor GI/Abdominal exam: PRESENT: normal bowel sounds, soft Extremities exam: ABSENT: joint swelling, pedal edema Musculoskeletal exam: PRESENT: full ROM, normal inspection Neurological exam: PRESENT: alert, awake, oriented to person, oriented to place , oriented to time, oriented to situation, CN II-XII grossly intact. ABSENT: motor sensory deficit Psychiatric exam: PRESENT: appropriate affect, normal mood Skin exam: ABSENT: jaundice, rash, urticaria Results Laboratory Results: 11/19/17 04:47 11/19/17 04:47 11/19/17 11/19/17 11/19/17 04:47 04:47 04:47 WBC 17.0 H RBC 5.42 H Hgb 12.7 Hct 39.8 MCV 74 L MCH 23.3 L MCHC 31.8 L RDW 16.6 H Plt Count 304 Seg Neutrophils % 87.8 H Lymphocytes % 9.0 L Monocytes % 3.0 Eosinophils % 0.0 Basophils % 0.2 Absolute Neutrophils 15.0 H Absolute Lymphocytes 1.5 Absolute Monocytes 0.5 Absolute Eosinophils 0.0 Absolute Basophils 0.0 Sodium 135.7 L Potassium 4.7 Chloride 103 Carbon Dioxide 23 Anion Gap 10 BUN 13 Creatinine 0.57 Est GFR ( Amer) > 60 Est GFR (Non-Af Amer) > 60 Glucose 312 H Calcium 9.6 Magnesium 2.3 TSH 0.20 L Free T4 Free T3 pg/mL 11/19/17 04:47 WBC RBC Hgb Hct MCV MCH MCHC RDW Plt Count Seg Neutrophils % Lymphocytes % Monocytes % Eosinophils % Basophils % Absolute Neutrophils Absolute Lymphocytes Absolute Monocytes Absolute Eosinophils Absolute Basophils Sodium Potassium Chloride Carbon Dioxide Anion Gap BUN Creatinine Est GFR ( Amer) Est GFR (Non-Af Amer) Glucose Calcium Magnesium TSH Free T4 1.18 Free T3 pg/mL 2.27 L Impressions: Chest X-Ray 11/18/17 14:10 IMPRESSION: NO ACUTE RADIOGRAPHIC FINDING IN THE CHEST. Assessment & Plan - Diagnosis (1) Acute and chronic respiratory failure with hypoxia Is this a current diagnosis for this admission?: Yes Plan: Continue an agressive pulmonary toilet and IV steroids. Monitor progress closely. Add Levaquin 750 mg p.o. daily with an anticipated 4 day course. If respiratory status continues to improve will convert to oral steroids tomorrow. (2) Insulin dependent type 2 diabetes mellitus, uncontrolled Is this a current diagnosis for this admission?: Yes Plan: SSI insulin to aid in reducing the hyperglycemia that will result with steroid usage for her respiratory status (3) Morbid obesity with BMI of 40.0-44.9, adult Is this a current diagnosis for this admission?: Yes Plan: Obesity complicates the resipratory situation but htis is a chronic problem. Encourage weight loss for overall health improvement. - Time Time Spent with patient: 35 or more minutes Medications reviewed and adjusted accordingly: Yes Anticipated discharge: Home
[2017-11-19] MEDS: BENZOCAINE/MENTHOL SORE THROAT LOZENGE BUCCAL PRN (13:28)
[2017-11-19] MEDS: IPRATROPIUM BROMIDE 0.02% NEB 0.5 MG/2.5 ML AMPUL NEB SCH ×2 (13:40→19:49)
[2017-11-19] MEDS: LEVOFLOXACIN 750 MG TABLET PO SCH (14:35)
[2017-11-19] MEDS ORDERED: (PENDING PHARMACY ID) (Liraglutide [Victoza 2-Pak] 0.6 MG) SQ SCH ×2 (16:15→18:00)
[2017-11-19] MEDS ORDERED: INSULIN LISPRO 100 UNIT/ML 3 ML VIAL SUBCUT ONE (16:30)
[2017-11-19] MEDS ORDERED: (PENDING PHARMACY ID) (Dapagliflozin Propanediol [Farxiga] 10 MG) PO SCH ×2 (17:00→18:00)
[2017-11-19] MEDS: LISINOPRIL 10 MG TABLET PO SCH (17:19)
[2017-11-19] MEDS: METFORMIN HCL 500 MG TABLET PO SCH (17:19)
[2017-11-19] MEDS: GLIPIZIDE 10 MG TABLET PO SCH (17:19)
[2017-11-19] MEDS: HYDROCHLOROTHIAZIDE 12.5 MG TABLET PO SCH (17:19)
[2017-11-19] MEDS ORDERED: (PENDING PHARMACY ID) (Lisinopril/Hydrochlorothiazide [Lisinopril-Hctz 20-12.5 Mg Tab] 1 E PO SCH (18:00)
[2017-11-19] MEDS: BUDESONIDE NEB 0.5 MG/2 ML AMPUL NEB SCH (19:49)
[2017-11-19] MEDS: DILTIAZEM HCL 180 MG CAPSULE.CR PO SCH (21:19)
[2017-11-19] MEDS: METOPROLOL SUCCINATE 25 MG TAB.SR.24H PO SCH (21:20)
[2017-11-20] MEDS ORDERED: INSULIN LISPRO 100 UNIT/ML 3 ML VIAL SUBCUT ONE
[2017-11-20] MEDS: INSULIN GLARGINE,HUM.REC.ANLOG 300 UNIT/3 ML INSULN.PEN SUBCUT SCH ×3 (00:24→22:20)
[2017-11-20] MEDS: IPRATROPIUM BROMIDE 0.02% NEB 0.5 MG/2.5 ML AMPUL NEB SCH ×4 (01:00→15:16)
[2017-11-20] MEDS: LEVALBUTEROL HCL NEB 1.25 MG/3 ML AMPUL NEB SCH ×4 (01:00→15:16)
[2017-11-20] MEDS: INSULIN LISPRO 100 UNIT/ML 3 ML VIAL SUBCUT PRN ×5 (03:20→22:19)
[2017-11-20 06:06] LABS: ABSOLUTE LYMPHOCYTES (AUTO) 1.5 10^3/uL (0.5-4.7); ABSOLUTE MONOCYTES (AUTO) 0.9 10^3/uL (0.1-1.4); ABSOLUTE NEUT (AUTO) 17.1 10^3/uL (1.7-8.2); BASOPHILS % (AUTO) 0.1 % (0-2); HEMATOCRIT 37.4 % (36.0-47.0); HEMOGLOBIN 12.1 g/dL (12.0-15.5); LYMPHOCYTES % (AUTO) 7.5 % (13-45); MEAN CORPUSCULAR HGB CONC 32.3 g/dL (32.0-36.0); MEAN CORPUSCULAR VOLUME 74 fl (80-97); MONOCYTES % (AUTO) 4.8 % (3-13); PLATELET COUNT 250 10^3/uL (150-450); RED BLOOD COUNT 5.04 10^6/uL (3.72-5.28); RED CELL DISTRIBUTION WIDTH 16.8 % (11.5-14.0); SEGMENTED NEUTROPHILS % (AUTO) 87.6 % (42-78); TOTAL CELLS COUNTED % (AUTO) 100 %; WHITE BLOOD COUNT 19.5 10^3/uL (4.0-10.5)
[2017-11-20] MEDS: HEPARIN SOD (PORCINE) 5,000 UNIT/ML 1 ML SYRINGE SUBCUT SCH ×3 (06:38→22:20)
[2017-11-20] MEDS: METHYLPREDNISOLONE INJ 40 MG/1 ML SDV IV SCH (06:38)
[2017-11-20 07:07] LABS: ANION GAP 12 (5-19); BLOOD UREA NITROGEN 17 mg/dL (7-20); CALCIUM 8.9 mg/dL (8.4-10.2); CARBON DIOXIDE 20 mmol/L (22-30); CHLORIDE 105 mmol/L (98-107); GLUCOSE 320 mg/dL (75-110); POTASSIUM 4.8 mmol/L (3.6-5.0); SODIUM 137.2 mmol/L (137-145)
[2017-11-20] MEDS: BUDESONIDE NEB 0.5 MG/2 ML AMPUL NEB SCH ×2 (07:38→19:37)
[2017-11-20] MEDS: DILTIAZEM HCL 180 MG CAPSULE.CR PO SCH ×2 (09:30→22:18)
[2017-11-20] MEDS: HYDROCHLOROTHIAZIDE 12.5 MG TABLET PO SCH ×2 (09:30→17:05)
[2017-11-20] MEDS: METFORMIN HCL 500 MG TABLET PO SCH ×2 (09:30→17:05)
[2017-11-20] MEDS: GLIPIZIDE 10 MG TABLET PO SCH ×2 (09:30→17:05)
[2017-11-20] MEDS: METOPROLOL SUCCINATE 25 MG TAB.SR.24H PO SCH ×2 (09:31→22:18)
[2017-11-20] MEDS: LISINOPRIL 10 MG TABLET PO SCH ×2 (09:31→17:05)
[2017-11-20] MEDS: PREDNISONE 20 MG TABLET PO SCH (09:31)
[2017-11-20] MEDS: BENZOCAINE/MENTHOL SORE THROAT LOZENGE BUCCAL PRN ×2 (10:57→15:31)
[2017-11-20] MEDS: LEVOFLOXACIN 750 MG TABLET PO SCH (15:30)
--- NOTE | 2017-11-20 19:44 | PDOC PROGRESS REPORT ---
Subjective Progress Note for:: 11/20/17 Subjective:: DAYTON MENDOZA is a 36 year old female who presented to the ER with a 5 day history of progressively worsening dyspnea. She admits that she began with mild symptoms of dyspnea and cough 5 days ago and gradually the dyspnea has become severe and the cough has become productive of thick yellowish mucus. She has experienced severe wheezing as well as subjective fever and chills for the last one to two days and has also noted orthopnea and worsening intolerance of even minimal activity. She admits numerous similar episodes in the past with her COPD and acknowledges that she was formerly a very heavy smoker (3PPD). She tried using/overusing her home nebulizer treatments over the last three days without significant benefit. In the ER she was treated with multiple nebulizer treatments and IV steroids as well as IV magnesium ans showed modest improvement. Her wheezing and dyspnea were still significant and she was admitted for further treatment. 11/19/17: Dayton states that she feels somewhat better today than she did yesterday but she still feels like she is not breathing nearly as well as she does normally. She continues to have a moderate cough and continues to expectorate some yellowish mucus. She feels like she is moving more air but is wheezing more loudly than before, and she denies having fever or chills since being admitted. She does note that her blood sugar is significantly elevated as it is every time she gets steroids for an exacerbation of her COPD. 11/20/17: Dayton is again somewhat improved today though still not back to her usual self. Continues to have a significant cough clear to white mucus is now being expectorated. She denies fever, chills, diaphoresis, chest pain and palpitations. She is asking very strongly for something to help control her cough. Reason For Visit: ASTHMA WITH STATUS ASTHMATICUS,EXACERBATION OF Physical Exam Vital Signs: Temp Pulse Resp BP Pulse Ox 98.1 F 80 20 137/86 H 97 11/20/17 15:25 11/20/17 15:25 11/20/17 15:25 11/20/17 15:25 11/20/17 15:25 Intake & Output 11/19/17 11/20/17 11/21/17 06:59 06:59 06:59 Intake Total 672 0975 2175 Output Total 4056 8200 2500 Balance -8428 -0135 -419 Weight 132 kg 134.9 kg General appearance: PRESENT: no acute distress, cooperative, obese Head exam: PRESENT: atraumatic, normocephalic Eye exam: PRESENT: conjunctiva pink. ABSENT: conjunctival injection Ear exam: PRESENT: normal external ear exam. ABSENT: drainage Mouth exam: PRESENT: moist, neck supple, tongue midline Neck exam: ABSENT: thyromegaly, tracheal deviation Respiratory exam: PRESENT: decreased breath sounds - Air movement is only fair to good, prolonged expiratory phas - Moderately prolonged, symmetrical, unlabored, wheezes - End expiratory wheezes Cardiovascular exam: PRESENT: RRR. ABSENT: clicks, gallop, rubs Vascular exam: PRESENT: normal capillary refill. ABSENT: pallor GI/Abdominal exam: PRESENT: normal bowel sounds, soft. ABSENT: distended, tenderness Extremities exam: ABSENT: joint swelling, pedal edema Musculoskeletal exam: PRESENT: full ROM, normal inspection Neurological exam: PRESENT: alert, awake, oriented to person, oriented to place , oriented to time, oriented to situation, CN II-XII grossly intact. ABSENT: motor sensory deficit Psychiatric exam: PRESENT: appropriate affect, normal mood Skin exam: ABSENT: jaundice, rash, urticaria Results Laboratory Results: 11/20/17 04:42 11/20/17 04:42 11/20/17 11/20/17 04:42 04:42 WBC 19.5 H RBC 5.04 Hgb 12.1 Hct 37.4 MCV 74 L MCH 24.0 L MCHC 32.3 RDW 16.8 H Plt Count 250 Seg Neutrophils % 87.6 H Lymphocytes % 7.5 L Monocytes % 4.8 Eosinophils % 0.0 Basophils % 0.1 Absolute Neutrophils 17.1 H Absolute Lymphocytes 1.5 Absolute Monocytes 0.9 Absolute Eosinophils 0.0 Absolute Basophils 0.0 Sodium 137.2 Potassium 4.8 Chloride 105 Carbon Dioxide 20 L Anion Gap 12 BUN 17 Creatinine 0.66 Est GFR ( Amer) > 60 Est GFR (Non-Af Amer) > 60 Glucose 320 H Calcium 8.9 Magnesium 2.4 H Impressions: Chest X-Ray 11/18/17 14:10 IMPRESSION: NO ACUTE RADIOGRAPHIC FINDING IN THE CHEST. Assessment & Plan - Diagnosis (1) Acute and chronic respiratory failure with hypoxia Is this a current diagnosis for this admission?: Yes Plan: Continue pulmonary toilet, convert to oral steroids. Monitor progress closely. Continue Levaquin 750 mg p.o. daily with an anticipated 4 day course. Treat her cough with Robitussin-DM (2) Insulin dependent type 2 diabetes mellitus, uncontrolled Is this a current diagnosis for this admission?: Yes Plan: SSI insulin to aid in reducing the hyperglycemia that will result with steroid usage for her respiratory status (3) Morbid obesity with BMI of 40.0-44.9, adult Is this a current diagnosis for this admission?: Yes Plan: Obesity complicates the resipratory situation but htis is a chronic problem. Encourage weight loss for overall health improvement. - Time Time Spent with patient: 25-34 minutes Medications reviewed and adjusted accordingly: Yes Anticipated discharge: Home Within: within 72 hours
[2017-11-20] MEDS: GUAIFENESIN/D-METHORPHAN (200-20 MG) SYRUP 10 ML PO SCH (23:07)
[2017-11-21] MEDS: IPRATROPIUM BROMIDE 0.02% NEB 0.5 MG/2.5 ML AMPUL NEB SCH ×2 (00:30→08:03)
[2017-11-21] MEDS: LEVALBUTEROL HCL NEB 1.25 MG/3 ML AMPUL NEB SCH ×2 (00:30→08:03)
[2017-11-21 05:10] LABS: ABSOLUTE BASOPHILS # (AUTO) 0.1 10^3/uL (0.0-0.2); ABSOLUTE LYMPHOCYTES (AUTO) 2.8 10^3/uL (0.5-4.7); ABSOLUTE MONOCYTES (AUTO) 1.5 10^3/uL (0.1-1.4); ABSOLUTE NEUT (AUTO) 14.4 10^3/uL (1.7-8.2); BASOPHILS % (AUTO) 0.5 % (0-2); HEMOGLOBIN 11.9 g/dL (12.0-15.5); LYMPHOCYTES % (AUTO) 14.8 % (13-45); MEAN CORPUSCULAR HEMOGLOBIN 23.7 pg (27.0-33.4); MEAN CORPUSCULAR HGB CONC 32.2 g/dL (32.0-36.0); MEAN CORPUSCULAR VOLUME 74 fl (80-97); MONOCYTES % (AUTO) 8.1 % (3-13); PLATELET COUNT 231 10^3/uL (150-450); RED BLOOD COUNT 5.03 10^6/uL (3.72-5.28); RED CELL DISTRIBUTION WIDTH 16.3 % (11.5-14.0); SEGMENTED NEUTROPHILS % (AUTO) 76.6 % (42-78); TOTAL CELLS COUNTED % (AUTO) 100 %; WHITE BLOOD COUNT 18.8 10^3/uL (4.0-10.5)
[2017-11-21 05:48] LABS: ANION GAP 7 (5-19); BLOOD UREA NITROGEN 20 mg/dL (7-20); CALCIUM 9.1 mg/dL (8.4-10.2); CARBON DIOXIDE 26 mmol/L (22-30); CHLORIDE 103 mmol/L (98-107); GLUCOSE 200 mg/dL (75-110); POTASSIUM 4.3 mmol/L (3.6-5.0); SODIUM 136.1 mmol/L (137-145)
[2017-11-21] MEDS: HEPARIN SOD (PORCINE) 5,000 UNIT/ML 1 ML SYRINGE SUBCUT SCH ×2 (06:46→13:48)
[2017-11-21] MEDS: GUAIFENESIN/D-METHORPHAN (200-20 MG) SYRUP 10 ML PO SCH ×3 (06:46→13:48)
[2017-11-21] MEDS: BUDESONIDE NEB 0.5 MG/2 ML AMPUL NEB SCH (08:02)
[2017-11-21] MEDS: INSULIN GLARGINE,HUM.REC.ANLOG 300 UNIT/3 ML INSULN.PEN SUBCUT SCH (08:28)
[2017-11-21] MEDS: INSULIN LISPRO 100 UNIT/ML 3 ML VIAL SUBCUT PRN ×2 (08:28→13:48)
[2017-11-21] MEDS: HYDROCHLOROTHIAZIDE 12.5 MG TABLET PO SCH (09:46)
[2017-11-21] MEDS: LISINOPRIL 10 MG TABLET PO SCH (09:46)
[2017-11-21] MEDS: METOPROLOL SUCCINATE 25 MG TAB.SR.24H PO SCH (09:46)
[2017-11-21] MEDS: DILTIAZEM HCL 180 MG CAPSULE.CR PO SCH (09:46)
[2017-11-21] MEDS: GLIPIZIDE 10 MG TABLET PO SCH (09:46)
[2017-11-21] MEDS: PREDNISONE 20 MG TABLET PO SCH (09:46)
[2017-11-21] MEDS: METFORMIN HCL 500 MG TABLET PO SCH (09:47)
[2017-11-21 11:36] VITALS: BP 131/79
[2017-11-21] MEDS: LEVOFLOXACIN 750 MG TABLET PO SCH (15:38)
--- NOTE | 2017-11-21 19:35 | PDOC DISCHARGE SUMMARY ---
General - Admit/Disc Date/PCP Admission Date/Primary Care Provider: 11/18/17 16:41 Discharge Date: 11/21/17 - Discharge Diagnosis (1) Acute and chronic respiratory failure with hypoxia Is this a current diagnosis for this admission?: Yes Summary: Dayton responded well to initial therapy with BiPAP to correct her hypoxia and respiratory failure. With the addition of IV steroids and a vigorous pulmonary toilet she was able to reduce her need for BiPAP and proceeded with supplemental oxygen until the day of discharge when she no longer had any oxygen supplementation requirements and had excellent oxygenation and exercise tolerance. (2) Insulin dependent type 2 diabetes mellitus, uncontrolled Is this a current diagnosis for this admission?: Yes Summary: Dayton diabetes was significantly uncontrolled during the period of time that she was receiving intravenous steroids. Once the steroids were changed to oral in the form of prednisone in the dosage reduced her blood sugar has come down concomitantly. (3) Morbid obesity with BMI of 40.0-44.9, adult Is this a current diagnosis for this admission?: Yes Summary: Dayton and I have discussed diet and the need for weight loss to help to improve her overall quality of life. This would significantly benefit her asthma/COPD and dyspnea as well as her diabetes. - Additional Information Discharge Diet: Diabetic Discharge Activity: Activity As Tolerated, Walk Frequently Prescriptions: Levofloxacin [Levaquin 750 mg Tablet] 750 mg PO DAILY@1500 2 Days #2 tablet Prednisone [Deltasone 20 mg Tablet] 40 mg PO DAILY 1 Days #2 tablet Home Medications: Albuterol Sulfate [Albuterol Sulfate 2.5mg/3 mL] 1 vial IH TIDP PRN 11/18/17 Albuterol Sulfate [Proair HFA] 2 puff IH TID 11/18/17 Dapagliflozin Propanediol [Farxiga] 10 mg PO BID 11/18/17 Diltiazem HCl [Cardizem Cd 180 mg Capsule] 180 mg PO Q12 11/18/17 Fluticasone/Salmeterol [Advair 500-50 Diskus 28 Dose] 1 inh IH Q12 11/18/17 Glipizide [Glucotrol 10 mg Tablet] 10 mg PO BID 11/18/17 Insulin Glargine,Hum.rec.anlog [Lantus Solostar] 65 unit SQ QAM 11/18/17 Liraglutide [Victoza 2-Bryce] 0.6 mg SQ BID 11/18/17 Lisinopril/Hydrochlorothiazide [Lisinopril-Hctz 20-12.5 mg Tab] 1 each PO BID Metformin HCl [Glucophage] 1,000 mg PO BID 11/18/17 Metoprolol Succinate [Toprol Xl 25 mg Tab.sr] 37.5 mg PO Q12 11/18/17 Levofloxacin [Levaquin 750 mg Tablet] 750 mg PO DAILY@1500 2 Days #2 tablet 12/29 Prednisone [Deltasone 20 mg Tablet] 40 mg PO DAILY 1 Days #2 tablet 11/21/17 History of Present Illness Patient complains of: Dyspnea History of Present Illness: DAYTON MENDOZA is a 36 year old female who presented to the ER with a 5 day history of progressively worsening dyspnea. She admits that she began with mild symptoms of dyspnea and cough 5 days ago and gradually the dyspnea has become severe and the cough has become productive of thick yellowish mucus. She has experienced severe wheezing as well as subjective fever and chills for the last one to two days and has also noted orthopnea and worsening intolerance of even minimal activity. She admits numerous similar episodes in the past with her COPD and acknowledges that she was formerly a very heavy smoker (3PPD). She tried using/overusing her home nebulizer treatments over the last three days without significant benefit. Hospital Course Hospital Course: In the ER she was treated with multiple nebulizer treatments and IV steroids as well as IV magnesium ans showed modest improvement. Her wheezing and dyspnea were still significant and she was admitted for further treatment. 11/19/17: Dayton states that she feels somewhat better today than she did yesterday but she still feels like she is not breathing nearly as well as she does normally. She continues to have a moderate cough and continues to expectorate some yellowish mucus. She feels like she is moving more air but is wheezing more loudly than before, and she denies having fever or chills since being admitted. She does note that her blood sugar is significantly elevated as it is every time she gets steroids for an exacerbation of her COPD. 11/20/17: Dayton is again somewhat improved today though still not back to her usual self. Continues to have a significant cough clear to white mucus is now being expectorated. She denies fever, chills, diaphoresis, chest pain and palpitations. She is asking very strongly for something to help control her cough. 11/21/17: Dayton shows dramatic improvement today she is able take full and deep breaths he has been up and walking significant distances in the [place] on her own without oxygen. She has required no oxygen supplementation today at all states she feels very very well. She is asking to be discharged to home if at all possible. She denies wheezing and dyspnea with exertion but continues to complain of her cough although it is become very minimally productive and then only of clear to whitish sputum. He has not had any chest pain or sensations of fever or chills for the last 2 days. Because of her excellent progress she will be discharged home. Physical Exam Vital Signs: Temp Pulse Resp BP Pulse Ox 98.3 F 83 20 131/79 H 91 L 11/21/17 15:06 11/21/17 15:06 11/21/17 15:06 11/21/17 11:35 11/21/17 15:06 Intake & Output 11/20/17 11/21/17 11/22/17 06:59 06:59 06:59 Intake Total 3825 2175 Output Total 5500 3600 Balance -1675 -1425 Weight 134.9 kg 144.9 kg General appearance: PRESENT: no acute distress, cooperative, morbidly obese Head exam: PRESENT: atraumatic, normocephalic Eye exam: PRESENT: conjunctiva pink. ABSENT: conjunctival injection Ear exam: PRESENT: normal external ear exam. ABSENT: drainage Mouth exam: PRESENT: moist, neck supple Neck exam: ABSENT: thyromegaly, tracheal deviation Respiratory exam: PRESENT: clear to auscultation russell, symmetrical, unlabored Cardiovascular exam: PRESENT: RRR. ABSENT: clicks, gallop, rubs Vascular exam: PRESENT: normal capillary refill. ABSENT: pallor GI/Abdominal exam: PRESENT: normal bowel sounds, soft Extremities exam: ABSENT: joint swelling, pedal edema Musculoskeletal exam: PRESENT: full ROM, normal inspection Neurological exam: PRESENT: alert, awake, oriented to person, oriented to place , oriented to time, oriented to situation, CN II-XII grossly intact. ABSENT: motor sensory deficit Psychiatric exam: PRESENT: appropriate affect, normal mood Skin exam: PRESENT: urticaria. ABSENT: jaundice, rash Results Laboratory Results: 11/21/17 04:52 11/21/17 04:52 11/21/17 11/21/17 04:52 04:52 WBC 18.8 H RBC 5.03 Hgb 11.9 L Hct 37.0 MCV 74 L MCH 23.7 L MCHC 32.2 RDW 16.3 H Plt Count 231 Seg Neutrophils % 76.6 Lymphocytes % 14.8 Monocytes % 8.1 Eosinophils % 0.0 Basophils % 0.5 Absolute Neutrophils 14.4 H Absolute Lymphocytes 2.8 Absolute Monocytes 1.5 H Absolute Eosinophils 0.0 Absolute Basophils 0.1 Sodium 136.1 L Potassium 4.3 Chloride 103 Carbon Dioxide 26 Anion Gap 7 BUN 20 Creatinine 0.68 Est GFR ( Amer) > 60 Est GFR (Non-Af Amer) > 60 Glucose 200 H Calcium 9.1 Magnesium 2.0 Impressions: Chest X-Ray 11/18/17 14:10 IMPRESSION: NO ACUTE RADIOGRAPHIC FINDING IN THE CHEST. Qualifiers - * PATIENT BEING DISCHARGED WITH ANY OF THE FOLLOWING DIAGNOSIS: No Plan Discharge Plan: Discharged home in improved and stable condition Time Spent: Greater than 30 Minutes
== END 2017-11-21 15:49 | disposition home or self-care (01) | DRG 189 ==
LOC: ER 13:45 → EH 16:41 → 3N 19:36
PROVIDERS: ADMIT Internal Medicine; ATTEND Internal Medicine
PROC: 5A09457 Assistance with Respiratory Ventilation, 24-96 Consecutive Hours, Continuous Positive Airway Pressure (ICD-10-PCS; principal; 2017-11-18)
DX: J96.21 Acute and chronic respiratory failure with hypoxia (principal); Z68.41 Body mass index [BMI] 40.0-44.9, adult; J44.1 Chronic obstructive pulmonary disease with (acute) exacerbation; E11.9 Type 2 diabetes mellitus without complications; Z79.4 Long term (current) use of insulin; E66.01 Morbid (severe) obesity due to excess calories; Z87.891 Personal history of nicotine dependence; J44.9 Chronic obstructive pulmonary disease, unspecified; F31.9 Bipolar disorder, unspecified; Z90.49 Acquired absence of other specified parts of digestive tract; Z82.49 Family history of ischemic heart disease and other diseases of the circulatory system; Z79.51 Long term (current) use of inhaled steroids; Z88.0 Allergy status to penicillin; Z91.030 Bee allergy status
CPT/HCPCS: 36415; 71045; 80048; 80053; 82553; 82962; 83036; 83735; 83880; 84439; 84443; 84481; 84484; 85025; 93005; 93010; 94640; 94660; 96374; 96375; 99291; J1644; J1815; J2920; J2930; J3475; J3490; J7512; J7620

== ENCOUNTER 2017-12-08 12:28 | Emergency (ER) | payer SELFPAY ==
[2017-12-08] MEDS ORDERED: IPRATROPIUM/ALBUTEROL 0.5-2.5 MG/3 ML AMPUL NEB ONE ×2 (13:10→17:00)
--- NOTE | 2017-12-08 13:11 | ER Document Report ---
ED Medical Screen (RME) - General Chief Complaint: Shortness Of Breath Stated Complaint: SHORTNESS OF BREATH Notes: 37 years old female with a history of asthma, A. fib, CHF, hypertension, diabetes. Presents today with shortness of breath and wheezing for the last few days, this morning took 4 treatments so far without improvement. Therefore present to the ED. On examination obese-seems to be having difficulty in breathing. Lung sounds have expiratory wheezing scattered. TRAVEL OUTSIDE OF THE [place] IN LAST 30 DAYS: No - Related Data Allergies/Adverse Reactions: amoxicillin [Amoxicillin] Allergy (Verified 12/08/17 12:53) Penicillins Allergy (Verified 12/08/17 12:53) Bees/Wasp Allergy (Uncoded 12/08/17 12:53) Past Medical History - Social History Family history: CAD, DM, Hypertension, Malignancy - Past Medical History Cardiac Medical History: Reports: Hx Atrial Fibrillation, Hx Congestive Heart Failure, Hx Hypercholesterolemia, Hx Hypertension Pulmonary Medical History: Reports: Hx Asthma, Hx COPD, Hx Pneumonia Endocrine Medical History: Reports: Hx Diabetes Mellitus Type 1, Hx Diabetes Mellitus Type 2 Renal/ Medical History: Reports: Hx Kidney Stones. Denies: Hx Peritoneal Dialysis GI Medical History: Denies: Hx Cirrhosis, Hx Crohn's Disease, Hx Hepatitis Psychiatric Medical History: Reports: Hx Anxiety, Hx Bipolar Disorder, Hx Depression Infectious Medical History: Denies: Hx Hepatitis Past Surgical History: Reports: Hx Abdominal Surgery - hernia, Hx Cholecystectomy, Hx Herniorrhaphy, Hx Umbilical Hernia - Immunizations Immunizations up to date: No Hx Diphtheria, Pertussis, Tetanus Vaccination: Yes History of Influenza Vaccine for 12/2016 - 05/2017 Season: Yes Influenza Administration Date for 12/2016 - 05/2017 Season: 11/12/16 Physical Exam - Vital signs Vitals: Temp Pulse Resp BP Pulse Ox 98.1 F 96 32 H 151/89 H 95 12/08/17 12:38 12/08/17 12:38 12/08/17 12:38 12/08/17 12:38 12/08/17 12:38 Course - Vital Signs Vital signs: Temp Pulse Resp BP Pulse Ox 98.1 F 96 32 H 151/89 H 95 12/08/17 12:38 12/08/17 12:38 12/08/17 12:38 12/08/17 12:38 12/08/17 12:38
[2017-12-08 13:41] LABS: ABSOLUTE BASOPHILS # (AUTO) 0.1 10^3/uL (0.0-0.2); ABSOLUTE EOSINOPHILS # (AUTO) 0.1 10^3/uL (0.0-0.6); ABSOLUTE LYMPHOCYTES (AUTO) 2.1 10^3/uL (0.5-4.7); ABSOLUTE MONOCYTES (AUTO) 0.5 10^3/uL (0.1-1.4); ABSOLUTE NEUT (AUTO) 7.4 10^3/uL (1.7-8.2); BASOPHILS % (AUTO) 0.9 % (0-2); EOSINOPHILS % (AUTO) 1.3 % (0-6); HEMATOCRIT 37.1 % (36.0-47.0); HEMOGLOBIN 12.4 g/dL (12.0-15.5); LYMPHOCYTES % (AUTO) 20.5 % (13-45); MEAN CORPUSCULAR HEMOGLOBIN 24.8 pg (27.0-33.4); MEAN CORPUSCULAR HGB CONC 33.4 g/dL (32.0-36.0); MEAN CORPUSCULAR VOLUME 74 fl (80-97); MONOCYTES % (AUTO) 5.1 % (3-13); PLATELET COUNT 232 10^3/uL (150-450); RED BLOOD COUNT 4.99 10^6/uL (3.72-5.28); RED CELL DISTRIBUTION WIDTH 17.5 % (11.5-14.0); SEGMENTED NEUTROPHILS % (AUTO) 72.2 % (42-78); TOTAL CELLS COUNTED % (AUTO) 100 %; WHITE BLOOD COUNT 10.3 10^3/uL (4.0-10.5)
--- NOTE | 2017-12-08 14:04 | RADIOLOGY REPORT (SQ) ---
EXAM DESCRIPTION: CHEST SINGLE VIEW COMPLETED DATE/TIME: 12/08/2017 1:42 pm REASON FOR STUDY: chest pain COMPARISON: July 2017 EXAM PARAMETERS: NUMBER OF VIEWS: One view. TECHNIQUE: Single frontal radiographic view of the chest acquired. RADIATION DOSE: NA LIMITATIONS: None. FINDINGS: LUNGS AND PLEURA: No opacities, masses or pneumothorax. No pleural effusion. MEDIASTINUM AND HILAR STRUCTURES: No masses. Contour normal. HEART AND VASCULAR STRUCTURES: Heart normal in size. Normal vasculature. BONES: No acute findings. HARDWARE: None in the chest. OTHER: No other significant finding. IMPRESSION: NO ACUTE RADIOGRAPHIC FINDING IN THE CHEST. TECHNICAL DOCUMENTATION: JOB ID: [id number] [employer]- All Rights Reserved Reading location - IP/workstation name: [email or web address]
[2017-12-08 14:07] LABS: ALANINE AMINOTRANSFERASE 19 U/L (9-52); ALBUMIN 3.5 g/dL (3.5-5.0); ALKALINE PHOSPHATASE 56 U/L (38-126); ANION GAP 9 (5-19); ASPARTATE AMINO TRANSFERASE 20 U/L (14-36); BILIRUBIN,DIRECT 0.2 mg/dL (0.0-0.4); BILIRUBIN,TOTAL 0.4 mg/dL (0.2-1.3); BLOOD UREA NITROGEN 12 mg/dL (7-20); CALCIUM 8.8 mg/dL (8.4-10.2); CARBON DIOXIDE 24 mmol/L (22-30); CHLORIDE 106 mmol/L (98-107); GLUCOSE 216 mg/dL (75-110); POTASSIUM 3.9 mmol/L (3.6-5.0); SODIUM 138.9 mmol/L (137-145); TOTAL PROTEIN 6.4 g/dL (6.3-8.2)
[2017-12-08 14:19] LABS: CREATINE KINASE MB 1.04 ng/mL (<4.55)
[2017-12-08 14:27] LABS: TROPONIN I 0.045 ng/mL
[2017-12-08] MEDS ORDERED: METHYLPREDNISOLONE INJ 125 MG/2 ML SDV IV ONE (14:32)
--- NOTE | 2017-12-08 14:39 | EKG REPORT ---
SEVERITY:- ABNORMAL ECG - SINUS RHYTHM ABNORMAL Q SUGGESTS ANTERIOR INFARCT BORDERLINE T ABNORMALITIES, LATERAL LEADS : Confirmed by: Heaven Marshall MD 08-Dec-2017 14:38:35
[2017-12-08 15:15] LABS: APPEARANCE,URINE SLIGHTLY-CLOUDY; BILIRUBIN,URINE NEGATIVE (NEGATIVE); COLOR,URINE YELLOW; GLUCOSE, URINE >=500 mg/dL (NEGATIVE); KETONES,URINE TRACE mg/dL (NEGATIVE); LEUKOCYTE ESTERASE,URINE NEGATIVE (NEGATIVE); NITRITE,URINE NEGATIVE (NEGATIVE); PROTEIN,URINE NEGATIVE (NEGATIVE); URINE SPECIFIC GRAVITY 1.021; UROBILINOGEN,URINE NEGATIVE mg/dL (<2.0)
[2017-12-08 17:09] VITALS: BP 150/91
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
== END 2017-12-08 19:14 | disposition home or self-care (01) ==
LOC: ER 12:28
DX: J45.31 Mild persistent asthma with (acute) exacerbation (principal); T41.5X6A Underdosing of therapeutic gases, initial encounter; Z91.120 Patient's intentional underdosing of medication regimen due to financial hardship; Z91.14 Patient's other noncompliance with medication regimen; J06.9 Acute upper respiratory infection, unspecified; J44.9 Chronic obstructive pulmonary disease, unspecified; R06.02 Shortness of breath; R05 Cough; R53.1 Weakness; R53.81 Other malaise; R09.81 Nasal congestion; J34.89 Other specified disorders of nose and nasal sinuses; F17.210 Nicotine dependence, cigarettes, uncomplicated; R09.89 Other specified symptoms and signs involving the circulatory and respiratory systems; R50.9 Fever, unspecified; E66.01 Morbid (severe) obesity due to excess calories; Z68.41 Body mass index [BMI] 40.0-44.9, adult; E11.9 Type 2 diabetes mellitus without complications; I10 Essential (primary) hypertension; Z87.01 Personal history of pneumonia (recurrent); Z88.0 Allergy status to penicillin; Z91.030 Bee allergy status; Z91.038 Other insect allergy status
CPT/HCPCS: 93005; 94640 ×2; 99285; 96374; 36415; 82553; 85025; 81025; 80053; 81001; 84484; 83605; 83880; 71045; 93010; J2930; J7620

== ENCOUNTER 2017-12-13 14:42 | Observation (INO) | payer SELFPAY ==
[2017-12-13] MEDS ORDERED: IPRATROPIUM/ALBUTEROL 0.5-2.5 MG/3 ML AMPUL NEB ONE ×2 (15:48→18:55)
[2017-12-13] MEDS ORDERED: METHYLPREDNISOLONE INJ 125 MG/2 ML SDV IV ONE (15:48)
--- NOTE | 2017-12-13 15:51 | ER Document Report ---
ED Medical Screen (RME) - General Chief Complaint: Breathing Difficulty Stated Complaint: SHORTNESS OF BREATH Time Seen by Provider: 12/13/17 15:44 TRAVEL OUTSIDE OF THE [place] IN LAST 30 DAYS: No - HPI Notes: 12/13/17 15:50 Patient is a 37-year-old female with a history of insulin-dependent diabetes, paroxysmal A. fib (not on blood thinners), COPD, CHF who presents to the ED complaining of ongoing dry semi-productive cough, wheezing, shortness of breath x1 week. Patient was hospitalized earlier this month for COPD exacerbation, and was evaluated about 5 days ago as well. I have treated and performed a rapid initial assessment of this patient. A comprehensive ED assessment and evaluation of the patient, analysis of test results and completion of medical decision making process will be conducted by additional ED providers. PHYSICAL EXAMINATION: GENERAL: Well-appearing, well-nourished and in no acute distress. A&Ox4. Answers questions appropriately. LUNGS: Wheezing bilaterally HEART: Regular rate and rhythm without murmurs, rubs, gallops. Extremities: No cyanosis, clubbing, or edema b/l. No lower extremity asymmetry. Shawn negative bilaterally. NEUROLOGICAL: Normal speech, normal gait. PSYCH: Normal mood, normal affect. - Related Data Allergies/Adverse Reactions: amoxicillin [Amoxicillin] Allergy (Verified 12/13/17 14:50) Penicillins Allergy (Verified 12/13/17 14:50) Bees/Wasp Allergy (Uncoded 12/13/17 14:50) Past Medical History - Social History Family history: CAD, DM, Hypertension, Malignancy - Past Medical History Cardiac Medical History: Reports: Hx Atrial Fibrillation, Hx Congestive Heart Failure, Hx Hypercholesterolemia, Hx Hypertension Pulmonary Medical History: Reports: Hx Asthma, Hx COPD, Hx Pneumonia Endocrine Medical History: Reports: Hx Diabetes Mellitus Type 1, Hx Diabetes Mellitus Type 2 Renal/ Medical History: Reports: Hx Kidney Stones. Denies: Hx Peritoneal Dialysis GI Medical History: Denies: Hx Cirrhosis, Hx Crohn's Disease, Hx Hepatitis Psychiatric Medical History: Reports: Hx Anxiety, Hx Bipolar Disorder, Hx Depression Infectious Medical History: Denies: Hx Hepatitis Past Surgical History: Reports: Hx Abdominal Surgery - hernia, Hx Cholecystectomy, Hx Herniorrhaphy, Hx Umbilical Hernia - Immunizations Immunizations up to date: No Hx Diphtheria, Pertussis, Tetanus Vaccination: Yes History of Influenza Vaccine for 12/2016 - 05/2017 Season: Yes Influenza Administration Date for 12/2016 - 05/2017 Season: 11/12/16 Physical Exam - Vital signs Vitals: Temp Pulse Resp BP Pulse Ox 98.7 F 105 H 24 H 154/94 H 96 12/13/17 14:54 12/13/17 14:54 12/13/17 14:54 12/13/17 14:54 12/13/17 14:54 Course - Vital Signs Vital signs: Temp Pulse Resp BP Pulse Ox 98.7 F 105 H 24 H 154/94 H 96 12/13/17 14:54 12/13/17 14:54 12/13/17 14:54 12/13/17 14:54 12/13/17 14:54
--- NOTE | 2017-12-13 16:37 | RADIOLOGY REPORT (SQ) ---
EXAM DESCRIPTION: CHEST 2 VIEWS COMPLETED DATE/TIME: 12/13/2017 4:27 pm REASON FOR STUDY: cough, wheeze COMPARISON: CT ANGIO CHEST 04/21/2017 11/02/2017, 11/18/2017, 12/08/2017 CHEST FILMS EXAM PARAMETERS: NUMBER OF VIEWS: two views TECHNIQUE: Digital Frontal and Lateral radiographic views of the chest acquired. RADIATION DOSE: NA LIMITATIONS: none FINDINGS: LUNGS AND PLEURA: No opacities, masses or pneumothorax. No pleural effusion. MEDIASTINUM AND HILAR STRUCTURES: No masses or contour abnormalities. HEART AND VASCULAR STRUCTURES: Heart normal size. No evidence for failure. BONES: No acute findings. HARDWARE: Clips right upper quadrant post cholecystectomy OTHER: No other significant finding. IMPRESSION: NO ACUTE RADIOGRAPHIC FINDING IN THE CHEST. TECHNICAL DOCUMENTATION: JOB ID: [id number] [employer]- All Rights Reserved Reading location - IP/workstation name: [email or web address]
[2017-12-13 16:55] LABS: ABSOLUTE EOSINOPHILS # (AUTO) 0.2 10^3/uL (0.0-0.6); ABSOLUTE LYMPHOCYTES (AUTO) 2.6 10^3/uL (0.5-4.7); ABSOLUTE MONOCYTES (AUTO) 0.8 10^3/uL (0.1-1.4); ABSOLUTE NEUT (AUTO) 9.2 10^3/uL (1.7-8.2); BASOPHILS % (AUTO) 0.4 % (0-2); EOSINOPHILS % (AUTO) 1.5 % (0-6); HEMATOCRIT 38.5 % (36.0-47.0); HEMOGLOBIN 12.6 g/dL (12.0-15.5); MEAN CORPUSCULAR HEMOGLOBIN 24.4 pg (27.0-33.4); MEAN CORPUSCULAR HGB CONC 32.8 g/dL (32.0-36.0); MEAN CORPUSCULAR VOLUME 74 fl (80-97); MONOCYTES % (AUTO) 5.9 % (3-13); PLATELET COUNT 281 10^3/uL (150-450); RED BLOOD COUNT 5.18 10^6/uL (3.72-5.28); RED CELL DISTRIBUTION WIDTH 17.5 % (11.5-14.0); SEGMENTED NEUTROPHILS % (AUTO) 72.2 % (42-78); TOTAL CELLS COUNTED % (AUTO) 100 %; WHITE BLOOD COUNT 12.8 10^3/uL (4.0-10.5)
[2017-12-13 17:09] LABS: ALANINE AMINOTRANSFERASE 18 U/L (9-52); ALBUMIN 3.7 g/dL (3.5-5.0); ALKALINE PHOSPHATASE 58 U/L (38-126); ANION GAP 8 (5-19); ASPARTATE AMINO TRANSFERASE 15 U/L (14-36); BILIRUBIN,DIRECT 0.5 mg/dL (0.0-0.4); BILIRUBIN,TOTAL 0.5 mg/dL (0.2-1.3); BLOOD UREA NITROGEN 14 mg/dL (7-20); CALCIUM 9.1 mg/dL (8.4-10.2); CARBON DIOXIDE 27 mmol/L (22-30); CHLORIDE 101 mmol/L (98-107); GLUCOSE 307 mg/dL (75-110); POTASSIUM 4.6 mmol/L (3.6-5.0); SODIUM 135.7 mmol/L (137-145); TOTAL PROTEIN 6.3 g/dL (6.3-8.2)
[2017-12-13] MEDS: MAGNESIUM SULFATE/D5W 1 GM/100 ML RTUPB IV PRN ×2 (17:11→18:10)
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
[2017-12-13] MEDS ORDERED: INSULIN GLARGINE,HUM.REC.ANLOG 1,000 UNIT/10 ML UNIT SUBCUT ONE (17:25)
[2017-12-13] MEDS ORDERED: LISINOPRIL 10 MG TABLET PO ONE (19:30)
[2017-12-13] MEDS ORDERED: HYDROCHLOROTHIAZIDE 25 MG TABLET PO ONE (19:32)
[2017-12-13] MEDS ORDERED: DILTIAZEM HCL 180 MG CAPSULE.CR PO ONE (19:33)
--- NOTE | 2017-12-13 19:40 | EKG REPORT ---
SEVERITY:- ABNORMAL ECG - SINUS TACHYCARDIA ABNORMAL Q SUGGESTS ANTERIOR INFARCT NONSPECIFIC T ABNORMALITIES, LATERAL LEADS : Confirmed by: Tan Mobley 13-Dec-2017 19:39:03
[2017-12-13] MEDS: LEVALBUTEROL HCL NEB 1.25 MG/3 ML AMPUL NEB PRN (21:34)
[2017-12-13] MEDS ORDERED: ASPIRIN 81 MG TABLET, ENT COATED PO PRN (21:43)
[2017-12-13] MEDS ORDERED: ALBUTEROL SULFATE 0.083% NEB 2.5 MG/3 ML AMPUL NEB PRN (21:43)
[2017-12-13] MEDS ORDERED: GLUCAGON,HUMAN RECOMB 1 MG INJ IM PRN (21:48)
[2017-12-13] MEDS ORDERED: DEXTROSE 50%-WATER SYRINGE 25 GM/50 ML DOSE IV PRN (21:48)
[2017-12-13] MEDS ORDERED: DEXTROSE 40% GEL 15 GM TUBE X 2 PO PRN (21:48)
[2017-12-13] MEDS ORDERED: DEXTROSE 40% GEL 15 GM TUBE PO PRN (21:48)
[2017-12-13] MEDS ORDERED: DEXTROSE 50%-WATER SYRINGE 12.5 GM/25 ML DOSE IV PRN (21:48)
[2017-12-13] MEDS: FLUTICASONE/SALMETEROL DISKUS 500-50 MCG/DOSE IH SCH (22:10)
[2017-12-13 22:11] LABS: ARTERIAL BLOOD BASE EXCESS -2.9 mmol/L; ARTERIAL BLOOD H2CO3 1.01 mmol/L (1.05-1.35); ARTERIAL BLOOD HCO3 20.9 mmol/L (20-24); ARTERIAL BLOOD O2 SATURATION 97.1 % (94-98); ARTERIAL BLOOD PCO2 33.7 mmHg (35-45); ARTERIAL BLOOD PH 7.41 (7.35-7.45); ARTERIAL BLOOD PO2 90.8 mmHg (80-100); ARTERIAL BLOOD TOTAL CO2 21.9 mmol/L (21-25)
[2017-12-13] MEDS: GABAPENTIN 300 MG CAPSULE PO SCH (22:11)
[2017-12-13] MEDS: DILTIAZEM HCL 180 MG CAPSULE.CR PO SCH (22:11)
[2017-12-13] MEDS: FAMOTIDINE 20 MG TABLET PO SCH (22:12)
[2017-12-13] MEDS: METOPROLOL SUCCINATE 50 MG TAB.SR.24H PO SCH (22:12)
[2017-12-13 22:13] LABS: ARTERIAL BLOOD FIO2 2L
[2017-12-13] MEDS: ALBUTEROL SULFATE HFA (90 MCG/PUFF) 200 PUFF/8.5 GM MDI IH SCH (22:13)
[2017-12-13] MEDS: INSULIN LISPRO 100 UNIT/ML 3 ML VIAL SUBCUT PRN (22:14)
[2017-12-14 05:22] LABS: HEMATOCRIT 39.6 % (36.0-47.0); HEMOGLOBIN 12.8 g/dL (12.0-15.5); MEAN CORPUSCULAR HEMOGLOBIN 24.4 pg (27.0-33.4); MEAN CORPUSCULAR HGB CONC 32.4 g/dL (32.0-36.0); MEAN CORPUSCULAR VOLUME 76 fl (80-97); PLATELET COUNT 275 10^3/uL (150-450); RED BLOOD COUNT 5.25 10^6/uL (3.72-5.28); RED CELL DISTRIBUTION WIDTH 17.3 % (11.5-14.0); WHITE BLOOD COUNT 17.4 10^3/uL (4.0-10.5)
[2017-12-14 05:41] LABS: ANION GAP 11 (5-19); BLOOD UREA NITROGEN 16 mg/dL (7-20); CALCIUM 9.5 mg/dL (8.4-10.2); CARBON DIOXIDE 25 mmol/L (22-30); CHLORIDE 98 mmol/L (98-107); PHOSPHORUS 4.5 mg/dL (2.5-4.5); POTASSIUM 4.8 mmol/L (3.6-5.0); SODIUM 134.1 mmol/L (137-145)
[2017-12-14 05:56] LABS: GLUCOSE 413 mg/dL (75-110)
[2017-12-14] MEDS: INSULIN LISPRO 100 UNIT/ML 3 ML VIAL SUBCUT PRN ×4 (06:27→21:08)
[2017-12-14] MEDS: ALBUTEROL SULFATE HFA (90 MCG/PUFF) 200 PUFF/8.5 GM MDI IH SCH ×3 (07:13→21:08)
--- NOTE | 2017-12-14 07:22 | PDOC H&P ---
History of Present Illness Patient complains of: Shortness of breath History of Present Illness: DAYTON MENDOZA is a 37 year old female presenting to the emergency department secondary to shortness of breath for the past 3 days. Patient continues to smoke, with a last cigarette 2 days ago. States she has been having increased tightness in wheezing but denies chest pain. States she is supposed to be on oxygen at home but cannot afford it at this time. States she is currently feeling better since presenting to the emergency department. Did not receive her home medications prior to arrival to ER and was given antihypertensive agents in ER. Past Medical History Cardiac Medical History: Reports: Atrial Fibrillation, Congestive Heart Failure , Hyperlipidema, Hypertension Pulmonary Medical History: Reports: Asthma, Chronic Obstructive Pulmonary Disease (COPD), Pneumonia Endocrine Medical History: Reports: Diabetes Mellitus Type 1, Diabetes Mellitus Type 2 GI Medical History: Denies: Cirrhosis, Crohn's Disease, Hepatitis Psychiatric Medical History: Reports: Bipolar Disorder, Depression Past Surgical History Past Surgical History: Reports: Cholecystectomy, Herniorrhaphy Social History Information Source: Patient Smoking Status: Unknown if Ever Smoked Frequency of Alcohol Use: Occasional Hx Recreational Drug Use: No Drugs: None Hx Prescription Drug Abuse: No Family History Family History: Reviewed & Not Pertinent, CAD, DM, Hypertension, Malignancy Parental Family History Reviewed: No Children Family History Reviewed: No Sibling(s) Family History Reviewed.: No Medication/Allergy Home Medications: Albuterol Sulfate [Albuterol Sulfate 2.5mg/3 mL] 1 vial IH TIDP PRN 11/18/17 Albuterol Sulfate [Proair HFA] 2 puff IH TID 11/18/17 Diltiazem HCl [Cardizem Cd 180 mg Capsule] 180 mg PO Q12 11/18/17 Fluticasone/Salmeterol [Advair 500-50 Diskus 28 Dose] 1 inh IH Q12 11/18/17 Glipizide [Glucotrol 10 mg Tablet] 10 mg PO BID 11/18/17 Insulin Glargine,Hum.rec.anlog [Lantus Solostar] 70 unit SQ QAM 11/18/17 Liraglutide [Victoza 2-Bryce] 0.6 mg SQ BID 11/18/17 Metformin HCl [Glucophage] 1,000 mg PO BID 11/18/17 Aspirin [Ecotrin] 81 mg PO DAILY PRN 12/13/17 Gabapentin [Neurontin] 600 mg PO Q12 12/13/17 Hydrochlorothiazide [Hydrodiuril 25 mg Tablet] 25 mg PO QAM 12/13/17 Lisinopril [Prinivil] 20 mg PO DAILY 12/13/17 Metoprolol Succinate [Toprol Xl] 50 mg PO Q12 12/13/17 Allergies/Adverse Reactions: amoxicillin [Amoxicillin] Allergy (Verified 12/13/17 14:50) Penicillins Allergy (Verified 12/13/17 14:50) Bees/Wasp Allergy (Uncoded 12/13/17 14:50) Review of Systems Constitutional: ABSENT: chills, fever(s), night sweats, weakness Cardiovascular: PRESENT: dyspnea on exertion. ABSENT: chest pain, edema Respiratory: PRESENT: cough, dyspnea. ABSENT: hemoptysis Gastrointestinal: ABSENT: abdominal pain, nausea, vomiting Musculoskeletal: ABSENT: back pain, muscle weakness Neurological: ABSENT: abnormal gait, abnormal speech, confusion, numbness, tingling Physical Exam Vital Signs: Temp Pulse Resp BP Pulse Ox 98.7 F 105 H 24 H 170/76 H 91 L 12/13/17 14:54 12/13/17 14:54 12/13/17 17:14 12/13/17 17:14 12/13/17 17:14 Intake & Output 12/12/17 12/13/17 12/14/17 06:59 06:59 06:59 Intake Total 198 Balance 198 Weight 142 kg General appearance: PRESENT: no acute distress Head exam: PRESENT: atraumatic, normocephalic Eye exam: PRESENT: conjunctiva pink, EOMI, PERRLA Mouth exam: PRESENT: moist, tongue midline Neck exam: ABSENT: carotid bruit, JVD, lymphadenopathy, thyromegaly Respiratory exam: PRESENT: tachypnea, wheezes. ABSENT: rales, rhonchi Cardiovascular exam: PRESENT: +S1, +S2, tachycardia. ABSENT: diastolic murmur, systolic murmur Pulses: PRESENT: normal carotid pulses GI/Abdominal exam: PRESENT: soft. ABSENT: distended, guarding, rebound, rigid, tenderness Neurological exam: PRESENT: alert, awake, oriented to person, oriented to place , oriented to time, oriented to situation, CN II-XII grossly intact. ABSENT: motor sensory deficit Psychiatric exam: PRESENT: appropriate affect, normal mood. ABSENT: homicidal ideation, suicidal ideation Results Laboratory Results: 12/13/17 16:45 12/13/17 16:45 12/13/17 12/13/17 16:45 16:45 WBC 12.8 H RBC 5.18 Hgb 12.6 Hct 38.5 MCV 74 L MCH 24.4 L MCHC 32.8 RDW 17.5 H Plt Count 281 Seg Neutrophils % 72.2 Lymphocytes % 20.0 Monocytes % 5.9 Eosinophils % 1.5 Basophils % 0.4 Absolute Neutrophils 9.2 H Absolute Lymphocytes 2.6 Absolute Monocytes 0.8 Absolute Eosinophils 0.2 Absolute Basophils 0.0 Sodium 135.7 L Potassium 4.6 Chloride 101 Carbon Dioxide 27 Anion Gap 8 BUN 14 Creatinine 0.68 Est GFR ( Amer) > 60 Est GFR (Non-Af Amer) > 60 Glucose 307 H Calcium 9.1 Total Bilirubin 0.5 AST 15 ALT 18 Alkaline Phosphatase 58 Total Protein 6.3 Albumin 3.7 12/13/17 16:45 NT-Pro-B Natriuret Pep 970 H Impressions: Chest X-Ray 12/13/17 15:48 IMPRESSION: NO ACUTE RADIOGRAPHIC FINDING IN THE CHEST. Assessment & Plan - Diagnosis (1) Dyspnea Qualifiers: Dyspnea type: shortness of breath Qualified Code(s): R06.02 - Shortness of breath; R06.00 - Dyspnea, unspecified; R06.01 - Orthopnea Is this a current diagnosis for this admission?: Yes (2) Asthma exacerbation Qualifiers: Asthma severity: moderate Asthma persistence: persistent Qualified Code(s ): J45.41 - Moderate persistent asthma with (acute) exacerbation Is this a current diagnosis for this admission?: Yes (3) Hypertension Qualifiers: Hypertension type: unspecified Qualified Code(s): I10 - Essential (primary ) hypertension Is this a current diagnosis for this admission?: Yes (4) Insulin dependent type 2 diabetes mellitus, uncontrolled Is this a current diagnosis for this admission?: Yes (5) Morbid obesity with BMI of 40.0-44.9, adult Is this a current diagnosis for this admission?: Yes - Plan Summary Plan Summary: Patient to be admitted to the medical telemetry floor for further monitoring and observation. Continuous pulse ox monitoring overnight with duo nebs every 4 as needed. Multiple treatments given in emergency department along with magnesium supplementation. Chest x-ray negative for infiltrate or consolidation. BNP slightly elevated at 970, if no improvement will consider addition of a diuretic. Continue patient's home medications particularly antihypertensive agents given elevated blood pressure in emergency department. Repeat CBC, BMP in a.m. Cardiac diabetic diet with insulin sliding scale. We will continue to monitor closely and adjust accordingly.
[2017-12-14] MEDS: HYDROCHLOROTHIAZIDE 25 MG TABLET PO SCH (07:56)
[2017-12-14] MEDS ORDERED: INSULIN GLARGINE,HUM.REC.ANLOG 300 UNIT/3 ML INSULN.PEN SUBCUT SCH (08:00)
[2017-12-14] MEDS: LEVALBUTEROL HCL NEB 1.25 MG/3 ML AMPUL NEB PRN ×2 (09:17→21:56)
[2017-12-14] MEDS ORDERED: ALBUTEROL SULFATE HFA (90 MCG/PUFF) 8 GM MDI (1 MDI/ER DISP) IH SCH (10:00)
[2017-12-14] MEDS: DILTIAZEM HCL 180 MG CAPSULE.CR PO SCH ×2 (10:07→21:09)
[2017-12-14] MEDS: FLUTICASONE/SALMETEROL DISKUS 500-50 MCG/DOSE IH SCH ×2 (10:07→21:07)
[2017-12-14] MEDS: GABAPENTIN 300 MG CAPSULE PO SCH ×2 (10:07→21:09)
[2017-12-14] MEDS: LISINOPRIL 10 MG TABLET PO SCH (10:07)
[2017-12-14] MEDS: METOPROLOL SUCCINATE 50 MG TAB.SR.24H PO SCH ×2 (10:07→21:09)
[2017-12-14] MEDS: FAMOTIDINE 20 MG TABLET PO SCH ×2 (10:07→21:09)
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
[2017-12-14] MEDS ORDERED: NICOTINE 14 MG/24 HR PATCH.TD24 TD PRN (13:12)
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
[2017-12-14] MEDS ORDERED: INSULIN GLARGINE,HUM.REC.ANLOG 1,000 UNIT/10 ML UNIT SUBCUT ONE (17:15)
[2017-12-14] MEDS ORDERED: INSULIN LISPRO 100 UNIT/ML 3 ML VIAL SUBCUT ONE (17:30)
[2017-12-14] MEDS ORDERED: INSULIN GLARGINE,HUM.REC.ANLOG 1,000 UNIT/10 ML UNIT SUBCUT SCH (18:00)
[2017-12-14] MEDS: INSULIN GLARGINE,HUM.REC.ANLOG 1,000 UNIT/10 ML UNIT SUBCUT SCH (21:14)
[2017-12-14] MEDS: BENZOCAINE/MENTHOL SORE THROAT LOZENGE BUCCAL PRN (21:15)
[2017-12-15] MEDS: BENZOCAINE/MENTHOL SORE THROAT LOZENGE BUCCAL PRN ×2 (05:08→08:54)
[2017-12-15] MEDS: ALBUTEROL SULFATE HFA (90 MCG/PUFF) 200 PUFF/8.5 GM MDI IH SCH (05:08)
[2017-12-15] MEDS: INSULIN LISPRO 100 UNIT/ML 3 ML VIAL SUBCUT PRN (07:28)
[2017-12-15] MEDS: HYDROCHLOROTHIAZIDE 25 MG TABLET PO SCH (07:28)
[2017-12-15] MEDS ORDERED: TIOTROPIUM BROMIDE DPI 5 CAP/KIT (18 MCG/CAP) IH SCH (10:00)
[2017-12-15 10:10] VITALS: BP 127/67
[2017-12-15] MEDS: INSULIN GLARGINE,HUM.REC.ANLOG 1,000 UNIT/10 ML UNIT SUBCUT SCH (10:41)
[2017-12-15] MEDS: LISINOPRIL 10 MG TABLET PO SCH (10:43)
[2017-12-15] MEDS: FLUTICASONE/SALMETEROL DISKUS 500-50 MCG/DOSE IH SCH (10:43)
[2017-12-15] MEDS: GABAPENTIN 300 MG CAPSULE PO SCH (10:44)
[2017-12-15] MEDS: FAMOTIDINE 20 MG TABLET PO SCH (10:44)
[2017-12-15] MEDS: METOPROLOL SUCCINATE 50 MG TAB.SR.24H PO SCH (10:44)
[2017-12-15] MEDS: DILTIAZEM HCL 180 MG CAPSULE.CR PO SCH (10:48)
--- NOTE | 2017-12-15 14:09 | PDOC DISCHARGE SUMMARY ---
General - Admit/Disc Date/PCP Admission Date/Primary Care Provider: 12/13/17 19:45 Discharge Date: 12/15/17 - Discharge Diagnosis (1) Asthma exacerbation Is this a current diagnosis for this admission?: Yes Summary: Resolved with steroids and nebulizer treatments. Strongly encourage smoking cessation. (2) Uncontrolled diabetes mellitus Is this a current diagnosis for this admission?: Yes Summary: This made worse by the steroids. Her breathing improved she was taken off steroids and her blood sugars came back down to a much more reasonable level. She will resume her usual home medications. (3) Tobacco dependence Is this a current diagnosis for this admission?: Yes Summary: She is a current everyday smoker, saying she is down to 3 cigarettes a day from 2 packs a day. I strongly encouraged her to quit smoking altogether. - Additional Information Discharge Diet: Diabetic Discharge Activity: Activity As Tolerated, Balance Activity w/Rest, Slowly Increase Activity Home Medications: Albuterol Sulfate [Albuterol Sulfate 2.5mg/3 mL] 1 vial IH TIDP PRN 11/18/17 Albuterol Sulfate [Proair HFA] 2 puff IH TID 11/18/17 Diltiazem HCl [Cardizem Cd 180 mg Capsule] 180 mg PO Q12 11/18/17 Fluticasone/Salmeterol [Advair 500-50 Diskus 28 Dose] 1 inh IH Q12 11/18/17 Glipizide [Glucotrol 10 mg Tablet] 10 mg PO BID 11/18/17 Insulin Glargine,Hum.rec.anlog [Lantus Solostar] 70 unit SQ QAM 11/18/17 Liraglutide [Victoza 2-Bryce] 0.6 mg SQ BID 11/18/17 Metformin HCl [Glucophage] 1,000 mg PO BID 11/18/17 Aspirin [Ecotrin] 81 mg PO DAILY PRN 12/13/17 Gabapentin [Neurontin] 600 mg PO Q12 12/13/17 Hydrochlorothiazide [Hydrodiuril 25 mg Tablet] 25 mg PO QAM 12/13/17 Lisinopril [Prinivil] 20 mg PO DAILY 12/13/17 Metoprolol Succinate [Toprol Xl] 50 mg PO Q12 12/13/17 History of Present Illness History of Present Illness: DAYTON MENDOZA is a 37 year old female presenting to the emergency department secondary to shortness of breath for the past 3 days. Patient continues to smoke, with a last cigarette 2 days ago. States she has been having increased tightness in wheezing but denies chest pain. States she is supposed to be on oxygen at home but cannot afford it at this time. States she is currently feeling better since presenting to the emergency department. Did not receive her home medications prior to arrival to ER and was given antihypertensive agents in ER. Hospital Course Hospital Course: She improved with steroids and nebulizer treatments. Her blood sugar went up because of the steroids and so her insulin regimen was temporarily increased. Her breathing had improved yesterday and she was taken off steroids. Her blood sugars have since come back down to a much more reasonable level. I do not think she is going to need more steroids whenever she goes home. She will resume her usual medications for her diabetes. She says she has a follow-up with her primary care provider in just under a week. She will keep that appointment. As noted above, smoking cessation was strongly encouraged. Her examination and labs were reassuring and she was discharged in good condition. Physical Exam Vital Signs: Temp Pulse Resp BP Pulse Ox 97.3 F 77 19 127/67 H 94 12/15/17 10:04 12/15/17 10:04 12/15/17 10:04 12/15/17 10:04 12/15/17 10:04 Pulse Oximeter Continuous Start: 12/13/17 21: 26 Freq: RTQ4 Status: Discharge Document 12/15/17 07:58 [facility] (Rec: 12/15/17 07:59 [id number]) Pulse Oximetry Assessment Oxygen Saturation (92-100) 94 Oxygen Delivery Method Room Air Fraction of Inspired Oxygen (FIO2) 21 Equipment Usage Equipment in Use Continuous SpO2 Machine # 3 Intake & Output 12/14/17 12/15/17 12/16/17 06:59 06:59 06:59 Intake Total 1105 Balance 1105 Weight 147.3 kg 147.1 kg General appearance: PRESENT: no acute distress, well-developed, well-nourished Eye exam: PRESENT: conjunctiva pink, EOMI, PERRLA. ABSENT: scleral icterus Neck exam: ABSENT: carotid bruit, JVD, lymphadenopathy, thyromegaly Respiratory exam: PRESENT: clear to auscultation russell. ABSENT: rales, rhonchi, wheezes Cardiovascular exam: PRESENT: RRR. ABSENT: diastolic murmur, rubs, systolic murmur GI/Abdominal exam: PRESENT: normal bowel sounds, soft. ABSENT: distended, guarding, mass, organolmegaly, rebound, tenderness Extremities exam: PRESENT: full ROM. ABSENT: calf tenderness, clubbing, pedal edema Results Laboratory Results: 12/14/17 05:11 12/14/17 05:11 Impressions: Chest X-Ray 12/13/17 15:48 IMPRESSION: NO ACUTE RADIOGRAPHIC FINDING IN THE CHEST. Qualifiers - * PATIENT BEING DISCHARGED WITH ANY OF THE FOLLOWING DIAGNOSIS: No
== END 2017-12-15 10:58 | disposition home or self-care (01) ==
LOC: ER 14:42 → EH 19:45 → 4N 20:49
PROVIDERS: ADMIT Family Medicine; ATTEND Family Medicine
DX: J45.41 Moderate persistent asthma with (acute) exacerbation (principal); E09.65 Drug or chemical induced diabetes mellitus with hyperglycemia; T38.0X5A Adverse effect of glucocorticoids and synthetic analogues, initial encounter; F17.210 Nicotine dependence, cigarettes, uncomplicated; E66.01 Morbid (severe) obesity due to excess calories; J96.01 Acute respiratory failure with hypoxia; G47.33 Obstructive sleep apnea (adult) (pediatric); I48.0 Paroxysmal atrial fibrillation; I11.0 Hypertensive heart disease with heart failure; I50.9 Heart failure, unspecified; Z68.41 Body mass index [BMI] 40.0-44.9, adult; Z99.81 Dependence on supplemental oxygen; Z59.1 Inadequate housing; Z59.8 Other problems related to housing and economic circumstances; Z90.49 Acquired absence of other specified parts of digestive tract; Z82.49 Family history of ischemic heart disease and other diseases of the circulatory system; Z79.4 Long term (current) use of insulin; Z23 Encounter for immunization
CPT/HCPCS: 93005; 94640 ×4; 99285; 96375; 96365; 96366; 36415 ×2; 87070; 87045; 87205; 82962 ×3; 82803; 83735; 84100; 85025; 85027; 80048; 80053; 83880; 71046; 90686; 93010; 36600; 94660 ×2; 94762 ×3; G0378 ×4; G0008; J1815 ×7; J3490 ×5; J2930; J3475; J7620; 90471

== ENCOUNTER 2018-01-02 16:03 | Emergency (ER) | payer SELFPAY ==
[2018-01-02 16:09] VITALS: BP 122/73
[2018-01-02] MEDS ORDERED: BUTALB/ACETAMINOPHEN/CAFFEINE 1 TAB EACH PO ONE (17:17)
--- NOTE | 2018-01-02 17:17 | ER Document Report ---
ED General - General Chief Complaint: Headache Stated Complaint: BLURRED VISION,DIZZINESS Time Seen by Provider: 01/02/18 17:05 Notes: Patient is a 37-year-old female with CHF, diabetes mellitus and migraine headache history that presents to the emergency department for chief complaint of headache. Patient states that her symptoms started a week ago, gradual onset of her headache, she describes it starting at the base of her neck, and extending up towards the back of the head, and she has been tender on the neck as well. Denies any any fevers, chills, night sweats. Does admit to having mild nausea but no vomiting, and occasional spots in her vision, she thinks this is different from her migraine headaches, and just lasting longer than usual. Denies any head injury. Not currently on any blood thinners. She currently rates her headache as a 6 out of 10. Denies numbness, tingling or weakness of any of her extremities, denies facial numbness or tingling. Denies slurred speech or difficulty speaking. Past Medical History: CHF, A. fib, diabetes mellitus, migraine headaches, asthma Past Surgical History: Cholecystectomy, umbilical hernia repair Social History: Denies tobacco, alcohol or drug use Family History: Reviewed and noncontributory for presenting illness Allergies: Reviewed, see documented allergy list. REVIEW OF SYSTEMS: Unless otherwise stated in this report the patient's positive and negative responses for review of systems for constitutional, eyes, ENT, cardiovascular, respiratory, gastrointestinal, neurological, genitourinary, musculoskeletal, and integumentary systems and related systems to the presenting problem are either as stated in the HPI or were not pertinent or were negative for the symptoms and/or complaints related to the presenting medical problem. PHYSICAL EXAMINATION: Vital signs reviewed, nursing noted reviewed. GENERAL: Well-appearing, well-nourished and in no acute distress. HEAD: Atraumatic, normocephalic. EYES: Eyes appear normal, extraocular movements intact, sclera anicteric, conjunctiva are normal. EOMI, PERRLA ENT: nares patent, oropharynx clear without exudates. Moist mucous membranes. No tenderness over the sinuses NECK: Normal range of motion, supple without lymphadenopathy, there is tenderness to palpation of the paraspinal muscles of the cervical spine particularly at the base of the skull LUNGS: Breath sounds clear to auscultation bilaterally and equal. No wheezes rales or rhonchi. HEART: Regular rate and rhythm without murmurs ABDOMEN: Soft, obese, nontender, normoactive bowel sounds. No rebound, guarding , or rigidity. No masses appreciated. EXTREMITIES: Nontender, good range of motion, no pitting or edema. NEUROLOGICAL: No focal neurological deficits. Moves all extremities spontaneously Motor and sensory grossly intact on exam. PSYCH: Normal mood, normal affect. SKIN: Warm, Dry, normal turgor, no rashes or lesions noted on exposed skin TRAVEL OUTSIDE OF THE [place] IN LAST 30 DAYS: No - Related Data Allergies/Adverse Reactions: amoxicillin [Amoxicillin] Allergy (Verified 12/13/17 14:50) Penicillins Allergy (Verified 12/13/17 14:50) Bees/Wasp Allergy (Uncoded 12/13/17 14:50) Past Medical History - Social History Smoking Status: Current Every Day Smoker Frequency of alcohol use: None Drug Abuse: None Family History: Reviewed & Not Pertinent, CAD, DM, Hypertension, Malignancy Patient has suicidal ideation: No Patient has homicidal ideation: No - Past Medical History Cardiac Medical History: Reports: Hx Atrial Fibrillation, Hx Congestive Heart Failure, Hx Hypercholesterolemia, Hx Hypertension Pulmonary Medical History: Reports: Hx Asthma, Hx COPD, Hx Pneumonia Endocrine Medical History: Reports: Hx Diabetes Mellitus Type 1, Hx Diabetes Mellitus Type 2 Renal/ Medical History: Reports: Hx Kidney Stones. Denies: Hx Peritoneal Dialysis GI Medical History: Denies: Hx Cirrhosis, Hx Crohn's Disease, Hx Hepatitis Psychiatric Medical History: Reports: Hx Anxiety, Hx Bipolar Disorder, Hx Depression Infectious Medical History: Denies: Hx Hepatitis Past Surgical History: Reports: Hx Abdominal Surgery - hernia, Hx Cholecystectomy, Hx Herniorrhaphy, Hx Umbilical Hernia - Immunizations Immunizations up to date: No Hx Diphtheria, Pertussis, Tetanus Vaccination: Yes Hx Pneumococcal Vaccination: 07/28/15 Physical Exam - Vital signs Vitals: Temp Pulse Resp BP Pulse Ox 98.7 F 88 18 122/73 95 01/02/18 16:07 01/02/18 16:07 01/02/18 16:07 01/02/18 16:07 01/02/18 16:07 Course - Re-evaluation Re-evalutation: Patient seen and examined vital signs reviewed. Patient was evaluated and treated as appropriate for the patient's presenting symptoms and complaint, with consideration of any critical or life threatening conditions that may be associated with their obtained history and exam as noted above. Patient was treated with IV fluids, Reglan, and Fioricet The patient was re-evaluated and was improved, headache had completely resolved Evaluation was most consistent with tension type headache, advised patient to use relaxation techniques, given a prescription for 6 pills of Fioricet, advised to follow-up with her primary care physician, and if her headaches worsen or return, to come back to the emergency department. Patient was agreeable to plan of care. Plan of care was discussed with the patient at this point, after careful consideration I feel that that patient can be discharged from the emergency department, the patient was educated treatments and reasons to return to the emergency department based on their presumed diagnosis as noted above, they were advised to followup with a primary care physician in 2-3 days. Patient was agreeable to plan of care. *Note is created using voice recognition software and may contain spelling, syntax or grammatical errors. - Vital Signs Vital signs: Temp Pulse Resp BP Pulse Ox 98.7 F 88 18 122/73 95 01/02/18 16:07 01/02/18 16:07 01/02/18 16:07 01/02/18 16:07 01/02/18 16:07 Discharge - Discharge Clinical Impression: Headache Qualifiers: Headache type: unspecified Headache chronicity pattern: unspecified pattern Intractability: not intractable Qualified Code(s): R51 - Headache Condition: Stable Disposition: HOME, SELF-CARE Instructions: Tension Headache ([facility]) Additional Instructions: Please return to the emergency department if you have any worsening, or concern of your symptoms. Please return to the emergency department if you develop chest pain, difficulty breathing, severe abdominal pain, or ongoing vomiting. Please follow-up with your primary care physician in 2-3 days and any other recommended physicians. If prescribed, take all medications as directed. If you have any questions or concerns do not hesitate to return the emergency department for evaluation. Prescriptions: Butalb/Acetaminophen/Caffeine [Fioricet (50-325-40 mg) Tablet] 1 tab PO Q6H PRN #6 tab PRN Reason: headache Referrals: DIMAS WEI MD [ACTIVE STAFF] - Follow up tomorrow (or your primary care. )
[2018-01-02] MEDS ORDERED: NORMAL SALINE 1000 ML 1,000 ML IV ONE (17:18)
[2018-01-02] MEDS ORDERED: METOCLOPRAMIDE HCL INJ/PF 10 MG/2 ML SDV IV ONE (17:18)
== END 2018-01-02 18:47 | disposition home or self-care (01) ==
LOC: ER 16:03
DX: R51 Headache (principal); R42 Dizziness and giddiness; H53.8 Other visual disturbances; F17.200 Nicotine dependence, unspecified, uncomplicated; I50.9 Heart failure, unspecified; E11.9 Type 2 diabetes mellitus without complications; I48.91 Unspecified atrial fibrillation; Z90.49 Acquired absence of other specified parts of digestive tract; Z88.0 Allergy status to penicillin
CPT/HCPCS: 99284; 96361; 96374; J3490; J2765; J7030

== ENCOUNTER 2018-01-20 22:06 | Emergency (ER) | payer SELFPAY ==
[2018-01-20] MEDS ORDERED: KETOROLAC TROMETHAMINE 60 MG/2 ML SDV IM ONE (22:58)
[2018-01-20] MEDS ORDERED: HYDROMORPHONE HCL INJ/PF 2 MG/ML AMPULE IM ONE (22:58)
[2018-01-20] MEDS ORDERED: HYDROMORPHONE HCL INJ/PF 2 MG/ML AMPULE IV PRN (23:03)
[2018-01-20] MEDS ORDERED: KETOROLAC TROMETHAMINE INJ/PF 30 MG/1 ML SDV IV ONE (23:03)
--- NOTE | 2018-01-20 23:27 | RADIOLOGY REPORT (SQ) ---
EXAM DESCRIPTION: XR ANKLE 3 OR MORE VIEWS COMPLETED DATE/TME: 01/20/2018 22:54 CLINICAL HISTORY: 37 years, Female, fall, pain COMPARISON: None. NUMBER OF VIEWS: TECHNIQUE: LIMITATIONS: None. FINDINGS: No fracture or dislocation. Mineralization of bone appears normal. IMPRESSION: No fracture or dislocation. 2011 [facility] [employer]- All Rights Reserved
--- NOTE | 2018-01-20 23:28 | RADIOLOGY REPORT (SQ) ---
EXAM DESCRIPTION: XR KNEE 3 VIEWS COMPLETED DATE/TME: 01/20/2018 22:54 CLINICAL HISTORY: 37 years, Female, fall, pain COMPARISON: None. NUMBER OF VIEWS: TECHNIQUE: LIMITATIONS: None. FINDINGS: No fracture or dislocation. No evidence of joint effusion. There are minimal degenerative changes. IMPRESSION: No fracture or dislocation. 2011 [email or web address]- All Rights Reserved
--- NOTE | 2018-01-21 00:35 | ER Document Report ---
ED General - General Chief Complaint: Knee Injury Stated Complaint: FALL/RIGHT KNEE PAIN/RIGHT ANKLE PAIN Time Seen by Provider: 01/20/18 22:51 Notes: Patient is a 37-year-old female with a past medical history of essential hypertension, diabetes, morbid obesity presents with right knee and right ankle pain. She does arrive by EMS. She states that she heard a pop in either her right knee or right ankle after she apparently tried to move out of the way of a child running throughout the house. She states that since that time she has had a severe, throbbing, constant pain to the right knee and right ankle. She states any attempt at moving these areas or walking worsens the pain. No history of similar injury in the past. She has not seen her general doctor regarding today's concerns. She states that pain medications provided in route by EMS were minimally helpful. Denies any weakness or numbness. Denies any discoloration of the leg. TRAVEL OUTSIDE OF THE [place] IN LAST 30 DAYS: No - Related Data Allergies/Adverse Reactions: amoxicillin [Amoxicillin] Allergy (Verified 12/13/17 14:50) Penicillins Allergy (Verified 12/13/17 14:50) Bees/Wasp Allergy (Uncoded 12/13/17 14:50) Past Medical History - General Information source: Patient - Social History Smoking Status: Former Smoker Frequency of alcohol use: None Drug Abuse: None Lives with: Family Family History: Reviewed & Not Pertinent, CAD, DM, Hypertension, Malignancy Patient has suicidal ideation: No Patient has homicidal ideation: No - Past Medical History Cardiac Medical History: Reports: Hx Atrial Fibrillation, Hx Congestive Heart Failure, Hx Hypercholesterolemia, Hx Hypertension Pulmonary Medical History: Reports: Hx Asthma, Hx COPD, Hx Pneumonia Endocrine Medical History: Reports: Hx Diabetes Mellitus Type 1, Hx Diabetes Mellitus Type 2 Renal/ Medical History: Reports: Hx Kidney Stones. Denies: Hx Peritoneal Dialysis GI Medical History: Denies: Hx Cirrhosis, Hx Crohn's Disease, Hx Hepatitis Psychiatric Medical History: Reports: Hx Anxiety, Hx Bipolar Disorder, Hx Depression Infectious Medical History: Denies: Hx Hepatitis Past Surgical History: Reports: Hx Abdominal Surgery - hernia, Hx Cholecystectomy, Hx Herniorrhaphy, Hx Umbilical Hernia - Immunizations Immunizations up to date: No Hx Diphtheria, Pertussis, Tetanus Vaccination: Yes Hx Pneumococcal Vaccination: 07/28/15 Review of Systems - Review of Systems Notes: Constitutional: Negative for fever. Eyes: Negative for visual changes. ENT: Negative for facial injury Cardiovascular: Negative for chest injury. Respiratory: Negative for shortness of breath. Gastrointestinal: Negative for abdominal injury. Genitourinary: Negative for genital injury Musculoskeletal: Positive for right knee and right ankle pain Skin: Negative for laceration/abrasions. Neurological: Negative for head injury. Physical Exam - Vital signs Vitals: Temp Pulse Resp BP Pulse Ox 98.5 F 95 16 154/92 H 98 01/20/18 22:15 01/20/18 22:15 01/20/18 22:15 01/20/18 22:15 01/20/18 22:15 Interpretation: Hypertensive Notes: PHYSICAL EXAMINATION: GENERAL: Appears to be in mild pain but in no acute distress. HEAD: Atraumatic, normocephalic. EYES: sclera anicteric, conjunctiva are normal. ENT: Moist mucous membranes. NECK: Normal range of motion LUNGS: Normal work of breathing HEART: 2+ DP pulses bilaterally. Capillary refill less than 2 seconds in all digits of the right foot. LONI greater than 0.9 taken at bedside. EXTREMITIES: no pitting or edema. No cyanosis. No apparent trauma to the right knee or right ankle. Full flexion extension of the knee as well as full dorsi and plantarflexion at the ankle. NEUROLOGICAL: No focal neurological deficits. Moves all extremities spontaneously and on command. PSYCH: Anxious. SKIN: Warm, Dry, normal turgor, no rashes or lesions noted. Course - Re-evaluation Re-evalutation: 01/21/18 00:34 No evidence of a septic joint, gout flare, dislocation, or fracture on exam and imaging. Minimal evidence of trauma on exam without any abrasions, swelling or ecchymosis over either the knee or ankle although the patient does report that she heard a pop in her right ankle at the time of a fall suggesting a possible ligamentous injury. She does have full flexion extension at the knee passively. Dorsi and plantarflexion of the ankle is present. Capillary refill less than 1 second in all digits of the right toes and strong 2+ DP pulse. LONI greater than 1. Vitals wnl. At this time, I do not see an indication for labs or further imaging. I recommended outpatient orthopedic follow-up given the concern of possible ligamentous injury and have provided the patient crutches and placed her knee in an immobilizer and place an Riley wrap on the ankle. At this time will discharge with return precautions and follow-up recommendations. Verbal discharge instructions given a the bedside and opportunity for questions given. Medication warnings reviewed. Patient is in agreement with this plan and has verbalized understanding of return precautions and the need for primary care follow-up in the next 24-72 hours. - Vital Signs Vital signs: Temp Pulse Resp BP Pulse Ox 98 F 87 20 148/85 H 96 01/21/18 01:05 01/21/18 01:05 01/21/18 01:05 01/21/18 01:05 01/21/18 01:05 - Diagnostic Test Radiology reviewed: Image reviewed, Reports reviewed Radiology results interpreted by me: 01/21/18 00:34 Right knee x-ray: No acute fracture or dislocation Right ankle x-ray: No acute fracture or dislocation Discharge - Discharge Clinical Impression: Right knee injury Qualifiers: Encounter type: initial encounter Qualified Code(s): S89.91XA - Unspecified injury of right lower leg, initial encounter Right ankle injury Qualifiers: Encounter type: initial encounter Qualified Code(s): S99.911A - Unspecified injury of right ankle, initial encounter Fall Qualifiers: Encounter type: initial encounter Qualified Code(s): W19.XXXA - Unspecified fall, initial encounter Condition: Good Disposition: HOME, SELF-CARE Additional Instructions: Your x-ray does not show any acute fracture today. You likely have a ligamentous strain or possible tear. For your pain: Take ibuprofen 600 mg and acetaminophen 1000 mg every 6 hours together as needed for pain. Continue to apply ice to the area is much your able. Follow-up with orthopedic surgery within the next 1 week particularly if you are not having improvement. Please return immediately if you develop weakness, numbness, spreading redness from the area, or any other symptoms that are concerning to you. Referrals: KIM MCKEON MD [ACTIVE STAFF] - Follow up in 1 week
[2018-01-21 01:24] VITALS: BP 148/85
== END 2018-01-21 01:15 | disposition home or self-care (01) ==
LOC: ER 22:06
DX: S89.91XA Unspecified injury of right lower leg, initial encounter (principal); S99.911A Unspecified injury of right ankle, initial encounter; M25.561 Pain in right knee; M25.571 Pain in right ankle and joints of right foot; W19.XXXA Unspecified fall, initial encounter; Y93.89 Activity, other specified; Y92.009 Unspecified place in unspecified non-institutional (private) residence as the place of occurrence of the external cause; I10 Essential (primary) hypertension; E11.9 Type 2 diabetes mellitus without complications; E66.01 Morbid (severe) obesity due to excess calories; J44.9 Chronic obstructive pulmonary disease, unspecified; Z87.891 Personal history of nicotine dependence; Z88.0 Allergy status to penicillin; Z91.030 Bee allergy status; Z91.038 Other insect allergy status
CPT/HCPCS: 99284; 96374; 96375; 73610; 73562; L1830; J1885; J1170

== ENCOUNTER → 2018-03-22 | Outpatient (CLI) | payer OTHER ==
--- NOTE | 2018-03-22 10:38 | RADIOLOGY REPORT (SQ) ---
EXAM DESCRIPTION: CHEST PA/LATERAL COMPLETED DATE/TIME: 03/22/2018 10:26 am REASON FOR STUDY: ASTHMA COMPARISON: 12/13/2017 EXAM PARAMETERS: NUMBER OF VIEWS: two views TECHNIQUE: Digital Frontal and Lateral radiographic views of the chest acquired. RADIATION DOSE: NA LIMITATIONS: none FINDINGS: LUNGS AND PLEURA: No opacities, masses or pneumothorax. No pleural effusion. MEDIASTINUM AND HILAR STRUCTURES: No masses or contour abnormalities. HEART AND VASCULAR STRUCTURES: Heart normal size. No evidence for failure. BONES: No acute findings. HARDWARE: None in the chest. OTHER: No other significant finding. IMPRESSION: NO SIGNIFICANT RADIOGRAPHIC FINDING IN THE CHEST. TECHNICAL DOCUMENTATION: JOB ID: [id number] [employer]- All Rights Reserved Reading location - IP/workstation name: [email or web address]
[2018-03-22 11:25] LABS: ANION GAP 8 (5-19); BLOOD UREA NITROGEN 11 mg/dL (7-20); CALCIUM 8.8 mg/dL (8.4-10.2); CARBON DIOXIDE 24 mmol/L (22-30); CHLORIDE 104 mmol/L (98-107); GLUCOSE 221 mg/dL (75-110); POTASSIUM 4.3 mmol/L (3.6-5.0); SODIUM 136.4 mmol/L (137-145)
== END ==
LOC: OD 10:03
DX: E11.9 Type 2 diabetes mellitus without complications (principal); I50.9 Heart failure, unspecified; J45.901 Unspecified asthma with (acute) exacerbation
CPT/HCPCS: 36415; 71046; 80048; 83036; 83880; 84443

== ENCOUNTER → 2018-04-14 | Outpatient (CLI) | payer OTHER ==
[~2018-04-14] MED LIST: ALBUTEROL SULFATE 0.083% NEB 2.5 MG/3 ML AMPUL NEB ONE
== END ==
LOC: RT 08:16
PROVIDERS: ATTEND Family Medicine
DX: I50.9 Heart failure, unspecified (principal); J45.901 Unspecified asthma with (acute) exacerbation
CPT/HCPCS: 94060

== ENCOUNTER 2018-04-21 01:13 | Inpatient (IN) | payer OTHER ==
--- NOTE | 2018-04-21 01:38 | ER Document Report ---
ED General - General Chief Complaint: Shortness Of Breath Stated Complaint: SHORTNESS OF BREATH Time Seen by Provider: 04/21/18 01:30 Notes: Patient is a 37-year-old female presents with complaint of difficulty breathing. She has a history of asthma as well as CHF. She used to smoke but she no longer smokes. She says that the breathing difficulty started tonight. No fevers but she has felt "ill". No chest pain. Some abdominal pain. No vomiting but she does have some nausea. No diarrhea. No other complaints at this time. TRAVEL OUTSIDE OF THE [place] IN LAST 30 DAYS: No - Related Data Allergies/Adverse Reactions: amoxicillin [Amoxicillin] Allergy (Verified 12/13/17 14:50) Penicillins Allergy (Verified 12/13/17 14:50) Bees/Wasp Allergy (Uncoded 12/13/17 14:50) Past Medical History - Social History Smoking Status: Former Smoker Frequency of alcohol use: None Drug Abuse: None Family History: Reviewed & Not Pertinent, CAD, DM, Hypertension, Malignancy - Past Medical History Cardiac Medical History: Reports: Hx Atrial Fibrillation, Hx Congestive Heart Failure, Hx Hypercholesterolemia, Hx Hypertension Pulmonary Medical History: Reports: Hx Asthma, Hx COPD, Hx Pneumonia Endocrine Medical History: Reports: Hx Diabetes Mellitus Type 1, Hx Diabetes Mellitus Type 2 Renal/ Medical History: Reports: Hx Kidney Stones. Denies: Hx Peritoneal Dialysis GI Medical History: Denies: Hx Cirrhosis, Hx Crohn's Disease, Hx Hepatitis Psychiatric Medical History: Reports: Hx Anxiety, Hx Bipolar Disorder, Hx Depression Infectious Medical History: Denies: Hx Hepatitis Past Surgical History: Reports: Hx Abdominal Surgery - hernia, Hx Cholecystectomy, Hx Herniorrhaphy, Hx Umbilical Hernia - Immunizations Immunizations up to date: No Hx Diphtheria, Pertussis, Tetanus Vaccination: Yes Hx Pneumococcal Vaccination: 07/28/15 Review of Systems - Review of Systems Notes: My Normal Review Basic REVIEW OF SYSTEMS: CONSTITUTIONAL : Denies fever, chills, or sweats. Denies recent illness. EENT: Denies eye, ear, throat, or mouth pain or symptoms. Denies nasal or sinus congestion. CARDIOVASCULAR: Denies chest pain. RESPIRATORY: Shortness of breath. GASTROINTESTINAL: Denies abdominal pain. Denies nausea, vomiting, or diarrhea. Denies constipation. Last BM: GENITOURINARY: Denies difficulty urinating, painful urination, burning, frequency, or blood in urine. MUSCULOSKELETAL: Denies neck or back pain or joint pain or swelling. SKIN: Denies rash or skin lesions. NEUROLOGICAL: Denies altered mental status or loss of consciousness. Denies headache. Denies weakness or paralysis or loss of use of either side. Denies problems with gait or speech. Denies sensory or motor loss. ALL OTHER SYSTEMS REVIEWED AND NEGATIVE. Physical Exam - Vital signs Vitals: Temp Pulse Resp BP Pulse Ox 98.4 F 117 H 25 H 161/94 H 92 04/21/18 01:35 04/21/18 01:35 04/21/18 01:35 04/21/18 01:35 04/21/18 01:35 - Notes Notes: General Appearance: Well nourished, alert, cooperative, mild acute distress, no obvious discomfort. Vitals: reviewed, See vital signs table. Head: no swelling or tenderness to the head Eyes: PERRL, EOMI, Conjuctiva clear Mouth: No decreasd moisture Lungs: Breath sounds in the bases. Some mild tachypnea. Heart: Normal rate, Regular rythm, No murmur, no rub Abdomen: Normal BS, soft, No rigidity, No abdominal tenderness, No guarding, no rebound, no abdominal masses, no organomegaly Extremities: strength 5/5 in all extremities, good pulses in all extremities, no swelling or tenderness in the extremities, no edema. Skin: warm, dry, appropriate color, no rash Neuro: speech clear, oriented x 3, normal affect, responds appropriately to questions. Course - Re-evaluation Re-evalutation: 04/21/18 04:07 The cnc machine operator print off and monitor strip for the patient is to have had a change in QRS morphology. This lasted approximately 5 minutes. The rhythm strip is lead to. Appears patient developed a intraventricular conduction delay as well as a change in the axis of the QRS. She had occasional PVC. Her rhythm then returned back to its baseline. 04/21/18 04:10 04/21/18 04:32 I will give the patient's Nitropaste. She is complaining of some chest pressure. The exact cause of exactly what is going on is not clear. I suspect this probably some congestive heart failure. CT scan does not show evidence of PE at this time. Her troponin is indeterminate. She still has tachypnea. Lung adams are clear at this time. She may be has just some slight rales in the bases. I have ordered a BNP as well. 04/21/18 05:28 I did speak with Dr. Castillo, hospitalist. He agrees to evaluate the patient for possible admission. I did do a repeat troponin. Repeat troponin went from 0.088 to 0.093. This is over the course of 3 hours. This is not a significant increase in troponin and therefore it appears to be stable. I have given her Nitropaste for her chest pressure. The exact cause of what is causing patient's symptoms is not 100% clear. I suspect she probably has some exacerbation of her CHF however her CTA study does not show significant edema into the lungs. She still has some tachypnea. She is having some improvement of her chest pressure. Her EKG is not showing significant ischemic changes however, she is having these occasional changes in the QRS morphology of her rhythm. She does not have any widening of her QRS. There is no evidence of a ventricular tachydysrhythmia. Nonetheless, patient still has tachypnea and is still feels short of breath and therefore I think is appropriate to admit her for further workup as to exactly what could be causing her symptoms. Dictation of this chart was performed using voice recognition software; therefore, there may be some unintended grammatical errors. - Vital Signs Vital signs: Temp Pulse Resp BP Pulse Ox 98.4 F 117 H 32 H 141/85 H 95 04/21/18 01:35 04/21/18 01:35 04/21/18 04:01 04/21/18 04:01 04/21/18 04:01 - Laboratory Result Diagrams: 04/21/18 01:34 04/21/18 01:34 Laboratory results interpreted by me: 04/21/18 04/21/18 04/21/18 01:34 01:34 01:34 WBC 11.7 H MCV 73 L MCH 24.1 L RDW 16.4 H Absolute Neutrophils 8.3 H VBG pH Glucose 239 H NT-Pro-B Natriuret Pep 987 H 04/21/18 02:07 WBC MCV MCH RDW Absolute Neutrophils VBG pH 7.45 H Glucose NT-Pro-B Natriuret Pep - EKG Interpretation by Me Additional EKG results interpreted by me: 04/21/18 04:09 EKG is reviewed and interpreted by me. EKG shows sinus tachycardia with a rate of [address] segment elevation or depression. No ischemic T wave inversions. OR interval, QRS duration are within normal range. QT interval is borderline. Old EKG for comparison is from December 13, 2017. Discharge - Discharge Clinical Impression: Chest pressure Condition: Stable Disposition: ADMITTED OBSERVATION Admitting Provider: Hospitalist Unit Admitted: Telemetry
[2018-04-21 02:18] LABS: VENOUS BLOOD BASE EXCESS 2.6 mmol/L; VENOUS BLOOD HCO3 26.6 mmol/L (20-32); VENOUS BLOOD PH 7.45 (7.30-7.42)
[2018-04-21 02:20] LABS: ABSOLUTE EOSINOPHILS # (AUTO) 0.1 10^3/uL (0.0-0.6); ABSOLUTE LYMPHOCYTES (AUTO) 2.3 10^3/uL (0.5-4.7); ABSOLUTE MONOCYTES (AUTO) 0.9 10^3/uL (0.1-1.4); ABSOLUTE NEUT (AUTO) 8.3 10^3/uL (1.7-8.2); BASOPHILS % (AUTO) 0.4 % (0-2); EOSINOPHILS % (AUTO) 0.9 % (0-6); HEMATOCRIT 38.3 % (36.0-47.0); HEMOGLOBIN 12.6 g/dL (12.0-15.5); LYMPHOCYTES % (AUTO) 19.7 % (13-45); MEAN CORPUSCULAR HEMOGLOBIN 24.1 pg (27.0-33.4); MEAN CORPUSCULAR HGB CONC 32.8 g/dL (32.0-36.0); MEAN CORPUSCULAR VOLUME 73 fl (80-97); MONOCYTES % (AUTO) 7.9 % (3-13); PLATELET COUNT 270 10^3/uL (150-450); RED BLOOD COUNT 5.23 10^6/uL (3.72-5.28); RED CELL DISTRIBUTION WIDTH 16.4 % (11.5-14.0); SEGMENTED NEUTROPHILS % (AUTO) 71.1 % (42-78); TOTAL CELLS COUNTED % (AUTO) 100 %; WHITE BLOOD COUNT 11.7 10^3/uL (4.0-10.5)
[2018-04-21 02:36] LABS: A TYPE INFLUENZA AG NEGATIVE (NEGATIVE); B INFLUENZA AG NEGATIVE (NEGATIVE)
--- NOTE | 2018-04-21 02:42 | RADIOLOGY REPORT (SQ) ---
EXAM DESCRIPTION: XR CHEST 1 VIEW COMPLETED DATE/TME: 04/21/2018 01:35 CLINICAL HISTORY: 37 years, Female, difficulty breathing COMPARISON: 03/22/2018 chest x-ray NUMBER OF VIEWS: 1 TECHNIQUE: Portable chest LIMITATIONS: None. FINDINGS: Heart size at the upper limits of normal. Osteopenia. Atheromatous change thoracic aorta. Lungs are clear. No pneumothorax IMPRESSION: No acute cardiopulmonary process copyright 2010 [employer]- All Rights Reserved
[2018-04-21] MEDS ORDERED: NORMAL SALINE 500 ML IV ONE (03:06)
[2018-04-21 03:20] LABS: ALANINE AMINOTRANSFERASE 17 U/L (9-52); ALKALINE PHOSPHATASE 61 U/L (38-126); ANION GAP 11 (5-19); ASPARTATE AMINO TRANSFERASE 25 U/L (14-36); BILIRUBIN,DIRECT 0.3 mg/dL (0.0-0.4); BILIRUBIN,TOTAL 0.5 mg/dL (0.2-1.3); BLOOD UREA NITROGEN 15 mg/dL (7-20); CALCIUM 8.9 mg/dL (8.4-10.2); CARBON DIOXIDE 23 mmol/L (22-30); CHLORIDE 105 mmol/L (98-107); GLUCOSE 239 mg/dL (75-110); POTASSIUM 4.5 mmol/L (3.6-5.0); SODIUM 139.2 mmol/L (137-145); TOTAL PROTEIN 6.5 g/dL (6.3-8.2)
--- NOTE | 2018-04-21 04:16 | RADIOLOGY REPORT (SQ) ---
EXAM DESCRIPTION: CT CHEST ANGIOGRAPHY WITHOUT THEN WITH IV CONTRAST COMPLETED DATE/TME: 04/21/2018 03:06 CLINICAL HISTORY: 37 years, Female, dyspnea COMPARISON: 04/21/2017 CTA chest TECHNIQUE: [id number] Images stored on PACS. All CT scanners at this facility use dose modulation, iterative reconstruction, and/or weight based dosing when appropriate to reduce radiation dose to as low as reasonably achievable (ALARA). Axial CT images were obtained with coronal and sagittal MIPS reconstructions.. [facility]: Dose Right [facility]: CareDose [facility]: Dose Right [facility]: Teradose 4D [facility]: [employer] LIMITATIONS: None. FINDINGS: Contrast bolus is significantly suboptimal. No large or central pulmonary embolus. Negative for thoracic aortic aneurysm or dissection. Heart size at the upper limits of normal. Limited evaluation of the upper abdomen shows fatty infiltrative change to the liver. Status post cholecystectomy. Osseous structures are grossly intact. No pneumothorax. The visualized airways are patent. Minor consolidative changes consistent with partial left upper lobe and lingular atelectasis. No effusion. IMPRESSION: Significantly suboptimal contrast bolus. No convincing evidence for pulmonary embolus. No large or central PE. Partial left upper lobe and lingular atelectasis. Could consider follow-up with bronchoscopy. Fatty infiltrative change to the liver TECHNICAL DOCUMENTATION: Quality ID # [id number]: Final reports with documentation of one or more dose reduction techniques (e.g., Automated exposure control, adjustment of the mA and/or kV according to patient size, use of iterative reconstruction technique) copyright 2010 [employer]- All Rights Reserved
[2018-04-21] MEDS ORDERED: NITROGLYCERIN 2% OINTMENT 1 GM PACKET TP ONE (04:32)
[2018-04-21] MEDS ORDERED: NITROGLYCERIN 0.4 MG/TAB 25 TAB/BOTTLE SL PRN (09:30)
[2018-04-21] MEDS ORDERED: IPRATROPIUM/ALBUTEROL 0.5-2.5 MG/3 ML AMPUL NEB ONE (09:41)
[2018-04-21] MEDS ORDERED: ALBUTEROL SULFATE 0.083% NEB 2.5 MG/3 ML AMPUL NEB PRN (09:41)
[2018-04-21] MEDS ORDERED: DEXTROSE 50%-WATER 25 GM/50 ML DISP.SYRIN IV PRN ×2 (09:42)
[2018-04-21] MEDS ORDERED: DEXTROSE 40% GEL 15 GM TUBE PO PRN ×2 (09:42)
[2018-04-21] MEDS ORDERED: GLUCAGON,HUMAN RECOMB 1 MG INJ IM PRN (09:42)
[2018-04-21] MEDS ORDERED: ASPIRIN 325 MG TABLET PO ONE (09:49)
[2018-04-21] MEDS: DOCUSATE SODIUM 100 MG CAPSULE PO SCH (10:03)
[2018-04-21] MEDS: FAMOTIDINE 20 MG TABLET PO SCH ×2 (10:03→21:12)
[2018-04-21] MEDS: ASPIRIN 81 MG TABLET, ENT COATED PO SCH (10:03)
[2018-04-21] MEDS: ENOXAPARIN SODIUM INJ 150 MG/1 ML DISP.SYRIN SUBCUT SCH ×2 (10:04→22:27)
[2018-04-21 10:37] LABS: TROPONIN I 0.052 ng/mL
[2018-04-21] MEDS: FUROSEMIDE INJ/PF 20 MG/2 ML SDV IV SCH ×2 (11:10→21:11)
[2018-04-21] MEDS: ACETAMINOPHEN 325 MG TABLET PO PRN ×2 (11:37→17:22)
[2018-04-21] MEDS ORDERED: INSULIN LISPRO 100 UNIT/ML 3 ML VIAL SUBCUT ONE (12:00)
[2018-04-21] MEDS: INSULIN LISPRO 100 UNIT/ML 3 ML VIAL SUBCUT SCH ×3 (12:14→22:25)
--- NOTE | 2018-04-21 12:41 | EKG REPORT ---
SEVERITY:- ABNORMAL ECG - SINUS TACHYCARDIA ABNORMAL Q SUGGESTS ANTERIOR INFARCT BORDERLINE PROLONGED QT INTERVAL : Confirmed by: Tan Mobley 21-Apr-2018 12:40:53
--- NOTE | 2018-04-21 12:41 | EKG REPORT ---
SEVERITY:- ABNORMAL ECG - SINUS TACHYCARDIA VENTRICULAR PREMATURE COMPLEX ABNORMAL Q SUGGESTS ANTERIOR INFARCT BORDERLINE PROLONGED QT INTERVAL : Confirmed by: Tan Mobley 21-Apr-2018 12:40:43
[2018-04-21] MEDS: MORPHINE SULFATE 10 MG/ML INJ IV PRN ×2 (13:53→21:10)
--- NOTE | 2018-04-21 14:25 | PDOC H&P ---
History of Present Illness Admission Date/PCP: 04/21/18 04:49 Patient complains of: chest pain History of Present Illness: DAYTON MENDOZA is a 37 year old female with a limited past medical history secondary to the patient being a poor historian, but known to have asthma, CHF, hypertension, insulin-dependent diabetes, and obesity who presented to the emergency department this morning with a complaint of nonradiating substernal chest pain that worsens with deep breathing, described as pressure, and associated with dyspnea. Pt declines additional aggravating or alleviating factors. She is noted to be lying in a prone position, with even and unlabored breathing upon entering the room. Evaluation in the emergency department revealed tachycardia (HR 107), hypertension (174/105), tachypnea (46), and hypoxia on room air (87%). She is found to have mild leukocytosis (WBCs 11.7), minimally elevated d-dimer, unremarkable chemistry, indeterminately elevated troponins, elevated BNP, EKG demonstrating sinus tachycardia with borderline prolonged QTc interval, and abnormal Q waves to the anterior leads, benign chest x-ray, and CTA of the chest negative for PE but demonstrating a partial left upper lobe and lingular atelectasis. She is referred to the hospitalist service for admission and management of the above stated complaints and findings. Past Medical History Cardiac Medical History: Reports: Atrial Fibrillation, Congestive Heart Failure, Hyperlipidema, Hypertension Pulmonary Medical History: Reports: Asthma, Chronic Obstructive Pulmonary Disease (COPD), Pneumonia Endocrine Medical History: Reports: Diabetes Mellitus Type 1, Diabetes Mellitus Type 2 Renal/ Medical History: Reports: None Malignancy Medical History: Reports: None GI Medical History: Denies: Cirrhosis, Crohn's Disease, Hepatitis Musculoskeltal Medical History: Reports: None Skin Medical History: Reports: None Psychiatric Medical History: Reports: Bipolar Disorder, Depression Traumatic Medical History: Reports: None Hematology: Reports: None Infectious Medical History: Reports: None Past Surgical History Past Surgical History: Reports: Cholecystectomy, Herniorrhaphy Social History Information Source: Patient Lives with: Alone Smoking Status: Former Smoker Frequency of Alcohol Use: Occasional Hx Recreational Drug Use: No Drugs: None Hx Prescription Drug Abuse: No - Advance Directive Resuscitation Status: Full Code Surrogate healthcare decision maker:: The patient's mother, Dot Shipman Family History Family History: Reviewed & Not Pertinent, CAD, DM, Hypertension, Malignancy Parental Family History Reviewed: Yes Children Family History Reviewed: Yes Sibling(s) Family History Reviewed.: Yes Medication/Allergy Home Medications: Albuterol Sulfate [Proair Hfa Inhalation Aerosol 8.5 gm Mdi] 2 puff IH Q4HP PRN 04/21/18 Aspirin [Ecotrin 81 mg EC Tablet] 81 mg PO DAILY 04/21/18 Budesonide/Formoterol Fumarate [Symbicort Hfa 160-4.5 Mcg Inhaler 6 gm] 2 puff IH Q12 04/21/18 Butalb/Acetaminophen/Caffeine [Fioricet (50-325-40 mg) Tablet] 1 tab PO Q6HP PRN 04/21/18 Diltiazem HCl [Cardizem Cd 180 mg Capsule] 1 cap.sr PO Q12 04/21/18 Fluticasone Propionate [Flonase Nasal [place] 50 Mcg/[place] 16 gm] 1 spray NASL DAILY 04/21/18 Gabapentin [Neurontin] 600 mg PO Q12 04/21/18 Glipizide [Glocotrol 10 Mg Tablet] 10 mg PO BIDBS 04/21/18 Hydrochlorothiazide [Hydrodiuril 25 mg Tablet] 25 mg PO QAM 04/21/18 Insulin Glargine,Hum.rec.anlog [Lantus Insulin 100 Unit/1 ml 10 ml] 40 unit SUBCUT Q12 04/21/18 Ipratropium/Albuterol Sulfate [Duoneb 3 ml Ampul] 3 ml NEB RTQ6HP PRN 04/21/18 Lisinopril [Prinivil] 20 mg PO Q12 04/21/18 Metformin HCl [Glucophage 500 mg Tablet] 1,000 mg PO BIDACBS 04/21/18 Metoprolol Succinate [Toprol Xl 50 mg Tab.sr] 50 mg PO Q12 04/21/18 Tiotropium [place] [Spiriva Respimat] 1 puff IH DAILY 04/21/18 Allergies/Adverse Reactions: amoxicillin [Amoxicillin] Allergy (Verified 12/13/17 14:50) Penicillins Allergy (Verified 12/13/17 14:50) Bees/Wasp Allergy (Uncoded 12/13/17 14:50) Review of Systems Constitutional: ABSENT: chills, fever(s), headache(s), weight gain, weight loss Eyes: ABSENT: visual disturbances Ears: ABSENT: hearing changes Cardiovascular: PRESENT: chest pain, dyspnea on exertion. ABSENT: edema, orthropnea, palpitations Respiratory: ABSENT: cough, hemoptysis Gastrointestinal: ABSENT: abdominal pain, constipation, diarrhea, hematemesis, hematochezia, nausea, vomiting Genitourinary: ABSENT: dysuria, hematuria Musculoskeletal: PRESENT: other - Right foot tenderness. ABSENT: joint swelling Integumentary: ABSENT: rash, wounds Neurological: ABSENT: abnormal gait, abnormal speech, confusion, dizziness, focal weakness, syncope Psychiatric: ABSENT: anxiety, depression, homidical ideation, suicidal ideation Endocrine: ABSENT: cold intolerance, heat intolerance, polydipsia, polyuria Hematologic/Lymphatic: ABSENT: easy bleeding, easy bruising Physical Exam Vital Signs: Temp Pulse Resp BP Pulse Ox 98.7 F 99 27 H 145/88 H 96 04/21/18 11:33 04/21/18 13:51 04/21/18 10:01 04/21/18 13:51 04/21/18 13:51 Intake & Output 04/20/18 04/21/18 04/22/18 06:59 06:59 06:59 Intake Total 500 Balance 500 Weight 146.5 kg 143.635 kg General appearance: PRESENT: no acute distress, morbidly obese, well-developed, well-nourished Head exam: PRESENT: atraumatic, normocephalic Eye exam: PRESENT: conjunctiva pink, EOMI, PERRLA. ABSENT: scleral icterus Ear exam: PRESENT: normal external ear exam Mouth exam: PRESENT: moist, tongue midline Neck exam: ABSENT: carotid bruit, JVD, lymphadenopathy, thyromegaly Respiratory exam: PRESENT: clear to auscultation russell, decreased breath sounds - Bibasilar; secondary to body habitus and poor respiratory effort, symmetrical, tachypnea - Intermittent, unlabored. ABSENT: rales, rhonchi, wheezes Cardiovascular exam: PRESENT: RRR, +S1, +S2. ABSENT: diastolic murmur, rubs, systolic murmur Pulses: PRESENT: normal dorsalis pedis pul Vascular exam: PRESENT: normal capillary refill GI/Abdominal exam: PRESENT: normal bowel sounds, soft. ABSENT: distended, guarding, mass, organolmegaly, rebound, tenderness Rectal exam: PRESENT: deferred Extremities exam: PRESENT: full ROM. ABSENT: calf tenderness, clubbing, pedal edema Neurological exam: PRESENT: alert, awake, oriented to person, oriented to place, oriented to time, oriented to situation, CN II-XII grossly intact. ABSENT: motor sensory deficit Psychiatric exam: PRESENT: flat affect, normal mood. ABSENT: homicidal ideation, suicidal ideation Skin exam: PRESENT: dry, intact, warm. ABSENT: cyanosis, rash Results Laboratory Results: 04/21/18 01:34 04/21/18 01:34 04/21/18 04/21/18 04/21/18 01:34 01:34 02:07 WBC 11.7 H RBC 5.23 Hgb 12.6 Hct 38.3 MCV 73 L MCH 24.1 L MCHC 32.8 RDW 16.4 H Plt Count 270 Seg Neutrophils % 71.1 Lymphocytes % 19.7 Monocytes % 7.9 Eosinophils % 0.9 Basophils % 0.4 Absolute Neutrophils 8.3 H Absolute Lymphocytes 2.3 Absolute Monocytes 0.9 Absolute Eosinophils 0.1 Absolute Basophils 0.0 VBG pH 7.45 H VBG pCO2 39.0 VBG HCO3 26.6 VBG Base Excess 2.6 Sodium 139.2 Potassium 4.5 Chloride 105 Carbon Dioxide 23 Anion Gap 11 BUN 15 Creatinine 0.69 Est GFR ( Amer) > 60 Est GFR (Non-Af Amer) > 60 Glucose 239 H Calcium 8.9 Total Bilirubin 0.5 AST 25 ALT 17 Alkaline Phosphatase 61 Total Protein 6.5 Albumin 4.0 TSH 04/21/18 09:53 WBC RBC Hgb Hct MCV MCH MCHC RDW Plt Count Seg Neutrophils % Lymphocytes % Monocytes % Eosinophils % Basophils % Absolute Neutrophils Absolute Lymphocytes Absolute Monocytes Absolute Eosinophils Absolute Basophils VBG pH VBG pCO2 VBG HCO3 VBG Base Excess Sodium Potassium Chloride Carbon Dioxide Anion Gap BUN Creatinine Est GFR ( Amer) Est GFR (Non-Af Amer) Glucose Calcium Total Bilirubin AST ALT Alkaline Phosphatase Total Protein Albumin TSH 1.97 04/21/18 04/21/18 04/21/18 01:34 01:34 04:47 Troponin I 0.088 0.093 NT-Pro-B Natriuret Pep 987 H 04/21/18 09:53 Troponin I 0.052 NT-Pro-B Natriuret Pep 1620 H Impressions: Chest X-Ray 04/21/18 01:35 IMPRESSION: No acute cardiopulmonary process copyright 2010 [employer]- All Rights Reserved Chest/Abdomen CTA 04/21/18 03:06 IMPRESSION: Significantly suboptimal contrast bolus. No convincing evidence for pulmonary embolus. No large or central PE. Partial left upper lobe and lingular atelectasis. Could consider follow-up with bronchoscopy. Fatty infiltrative change to the liver TECHNICAL DOCUMENTATION: Quality ID # 436: Final reports with documentation of one or more dose reduction techniques (e.g., Automated exposure control, adjustment of the mA and/or kV according to patient size, use of iterative reconstruction technique) copyright 2010 [employer]- All Rights Reserved Assessment & Plan - Diagnosis (1) Chest pressure Is this a current diagnosis for this admission?: Yes Plan: Troponins are indeterminately elevated, but trending down; 0.88-> 0.093-> 0.052 (baseline of 0.05) EKGs demonstrate sinus tachycardia with prolonged QTc interval and abnormal Q waves to the anterior leads; no other acute findings. Chest x-ray is benign. CT of the chest demonstrated a partial left upper lobe and lingular atelectasis but no PE. ProBNP elevated to 16,000 She is admitted to the medical floor and continuous cardiac telemetry. She reports that she had an echocardiogram done at Dr. Arreola's office last week; will request report. Full dose Lovenox for ACS protocol. Daily aspirin and statin therapy. Continue to trend troponin. Nitroglycerin SL tabs as needed chest pain with IV morphine as needed for relief of symptoms. IV furosemide for CHF exacerbation. Resume her outpatient medications: Diltiazem, metoprolol, lisinopril and hydrochlorothiazide. Supplemental oxygen as needed to maintain oxygen saturations. Cardiology consultation; will defer stress test until evaluated by Dr. Marshall. 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 She is placed on a consistent carb diet with Accu-Cheks before meals and at bedtime with Humalog for sliding scale coverage. Lantus 30 units twice daily (decreased from home dose of 40 units twice daily secondary to likely increase compliance with dietary recommendations resulting in lower insulin need). Hypoglycemia protocol in place. Registered dietitian and asthma educator are consulted. (3) Chronic diastolic CHF (congestive heart failure) Is this a current diagnosis for this admission?: Yes Plan: ProBNP is elevated to 1600; baseline is <1k Troponins are indeterminately elevated but trending down. We will request echocardiogram from Dr. Arreola's office; reportedly was updated this week. Have resumed her home medication regiment of diltiazem, metoprolol, Lisinopril and hydrochlorothiazide. Cardiac diet. Daily weights and strict I&O's. IV furosemide 20 mg twice daily. Patient educator and registered dietitian are consulted. Cardiology is consulted; appreciate Dr. Marshall's assistance. wedding planner is consulted; patient would likely benefit from home health nurse versus community workday consultant. (4) Dyspnea Qualifiers: Dyspnea type: shortness of breath Qualified Code(s): R06.02 - Shortness of breath; R06.00 - Dyspnea, unspecified; R06.01 - Orthopnea (5) GERD (gastroesophageal reflux disease) Qualifiers: Is this a current diagnosis for this admission?: Yes Plan: Pepcid twice daily. (6) Hypertension Qualifiers: Hypertension type: unspecified Qualified Code(s): I10 - Essential (primary) hypertension Is this a current diagnosis for this admission?: Yes Plan: Cardiac diet. Antihypertensives as above. (7) Morbid obesity with BMI of 40.0-44.9, adult Is this a current diagnosis for this admission?: Yes Plan: Dietary discretion is advised. The asthma educator and registered dietitian are consulted. Consistent carb and cardiac diet ordered. - Time Time Spent: 30 to 50 Minutes Medications reviewed and adjusted accordingly: Yes Anticipated discharge: Home Within: within 48 hours
[2018-04-21] MEDS: DIAZEPAM 5 MG TABLET PO PRN (17:22)
[2018-04-21] MEDS: IPRATROPIUM/ALBUTEROL 0.5-2.5 MG/3 ML AMPUL NEB SCH (20:48)
[2018-04-21] MEDS: INSULIN GLARGINE,HUM.REC.ANLOG 1,000 UNIT/10 ML UNIT SUBCUT SCH (21:10)
[2018-04-21] MEDS: GABAPENTIN 300 MG CAPSULE PO SCH (21:11)
[2018-04-21] MEDS: LISINOPRIL 10 MG TABLET PO SCH (21:11)
[2018-04-21] MEDS: DILTIAZEM HCL 180 MG CAPSULE.CR PO SCH (21:12)
[2018-04-21] MEDS: ATORVASTATIN CALCIUM 20 MG TABLET PO SCH (21:12)
[2018-04-21] MEDS: METOPROLOL SUCCINATE 50 MG TAB.SR.24H PO SCH (21:12)
[2018-04-21] MEDS ORDERED: (PENDING PHARMACY ID) (Lisinopril [Prinivil] 20 MG) PO SCH (22:00)
[2018-04-21] MEDS ORDERED: GABAPENTIN 300 MG CAPSULE PO SCH (22:00)
[2018-04-22] MEDS: DIAZEPAM 5 MG TABLET PO PRN (02:11)
[2018-04-22] MEDS: MORPHINE SULFATE 10 MG/ML INJ IV PRN ×2 (02:12→12:51)
[2018-04-22] MEDS: GUAIFENESIN SYRP 200 MG/10 ML UDC PO PRN (05:40)
[2018-04-22 05:50] LABS: HEMATOCRIT 38.7 % (36.0-47.0); MEAN CORPUSCULAR HEMOGLOBIN 24.5 pg (27.0-33.4); MEAN CORPUSCULAR HGB CONC 33.5 g/dL (32.0-36.0); MEAN CORPUSCULAR VOLUME 73 fl (80-97); PLATELET COUNT 222 10^3/uL (150-450); RED CELL DISTRIBUTION WIDTH 16.4 % (11.5-14.0); WHITE BLOOD COUNT 9.8 10^3/uL (4.0-10.5)
[2018-04-22 06:15] LABS: ANION GAP 11 (5-19); BLOOD UREA NITROGEN 18 mg/dL (7-20); CALCIUM 8.8 mg/dL (8.4-10.2); CARBON DIOXIDE 25 mmol/L (22-30); CHLORIDE 104 mmol/L (98-107); CHOLESTEROL 120.34 mg/dL (0-200); GLUCOSE 200 mg/dL (75-110); POTASSIUM 4.1 mmol/L (3.6-5.0); SODIUM 139.5 mmol/L (137-145); TRIGLYCERIDES 114 mg/dL (<150)
[2018-04-22 06:25] LABS: DIRECT LDL 63 mg/dL (<100)
[2018-04-22] MEDS ORDERED: DIAZEPAM INJ 10 MG/2 ML DISP.SYRIN IV PRN (07:04)
[2018-04-22] MEDS ORDERED: LORAZEPAM INJ 2 MG/1 ML VIAL ONE (07:11)
[2018-04-22] MEDS: IPRATROPIUM/ALBUTEROL 0.5-2.5 MG/3 ML AMPUL NEB SCH ×3 (07:49→20:57)
[2018-04-22 08:21] LABS: ARTERIAL BLOOD H2CO3 1.05 mmol/L (1.05-1.35); ARTERIAL BLOOD HCO3 21.9 mmol/L (20-24); ARTERIAL BLOOD PCO2 34.8 mmHg (35-45); ARTERIAL BLOOD PH 7.42 (7.35-7.45); ARTERIAL BLOOD PO2 72.8 mmHg (80-100); ARTERIAL BLOOD TOTAL CO2 22.9 mmol/L (21-25)
[2018-04-22 08:26] LABS: ARTERIAL BLOOD FIO2 30%
[2018-04-22] MEDS ORDERED: LORAZEPAM INJ 2 MG/1 ML VIAL IV PRN (08:59)
[2018-04-22] MEDS: GABAPENTIN 300 MG CAPSULE PO SCH ×2 (09:32→21:43)
[2018-04-22] MEDS: DOCUSATE SODIUM 100 MG CAPSULE PO SCH (09:32)
[2018-04-22] MEDS: HYDROCHLOROTHIAZIDE 25 MG TABLET PO SCH (09:32)
[2018-04-22] MEDS: FAMOTIDINE 20 MG TABLET PO SCH ×2 (09:32→21:43)
[2018-04-22] MEDS: ASPIRIN 81 MG TABLET, ENT COATED PO SCH (09:33)
[2018-04-22] MEDS: METOPROLOL SUCCINATE 50 MG TAB.SR.24H PO SCH ×2 (09:33→21:44)
[2018-04-22] MEDS: LISINOPRIL 10 MG TABLET PO SCH ×2 (09:33→21:43)
[2018-04-22] MEDS: DILTIAZEM HCL 180 MG CAPSULE.CR PO SCH ×2 (09:37→21:43)
[2018-04-22] MEDS: INSULIN GLARGINE,HUM.REC.ANLOG 1,000 UNIT/10 ML UNIT SUBCUT SCH ×2 (09:40→21:42)
[2018-04-22] MEDS: FLUTICASONE NASAL SPRAY 50 MCG/SPRY 120 SPRAY/16 GM NASL SCH (09:41)
[2018-04-22] MEDS: FUROSEMIDE INJ/PF 20 MG/2 ML SDV IV SCH ×2 (09:42→21:42)
[2018-04-22] MEDS: ENOXAPARIN SODIUM INJ 150 MG/1 ML DISP.SYRIN SUBCUT SCH ×2 (09:44→21:44)
[2018-04-22] MEDS ORDERED: FUROSEMIDE INJ/PF 40 MG/4 ML SDV IV ONE (09:45)
[2018-04-22] MEDS ORDERED: METHYLPREDNISOLONE INJ 125 MG/2 ML SDV IV ONE (09:45)
[2018-04-22] MEDS: INSULIN LISPRO 100 UNIT/ML 3 ML VIAL SUBCUT SCH ×4 (11:15→21:43)
[2018-04-22] MEDS: ACETAMINOPHEN 325 MG TABLET PO PRN (11:21)
[2018-04-22] MEDS: ONDANSETRON HCL INJ/PF 4 MG/2 ML SDV IV PRN (12:42)
--- NOTE | 2018-04-22 14:55 | PDOC PROGRESS REPORT ---
Subjective Progress Note for:: 04/22/18 Subjective:: Admitted on 04/21. This morning was noted to be increased SOB and tachypnic. Started on BiPAP with improvement in symptoms. Patient somnulent but arousable on exam this morning. Complaining of cough with some bloody sputum production. Received IV steroids, IV Lasix this morning. Around noon, was taken off BiPAP. RE-evaluated patient this afternoon and feeling better overall. Mentation is improved. Major complaints are cough and migraine, which she has a history of. Reason For Visit: ACUTE CHEST PAIN,DYSPNEA Physical Exam Vital Signs: Temp Pulse Resp BP Pulse Ox 100.8 F H 123 H 51 H 170/90 H 93 04/22/18 07:37 04/22/18 07:49 04/22/18 07:49 04/22/18 07:37 04/22/18 07:49 Intake & Output 04/21/18 04/22/18 04/23/18 06:59 06:59 06:59 Intake Total 500 1208 Balance 500 1208 Weight 146.5 kg 144.9 kg General appearance: PRESENT: no acute distress - Based on physical exam from 2pm, cooperative Mouth exam: PRESENT: moist Respiratory exam: PRESENT: crackles, decreased breath sounds, tachypnea, wheezes - Expiratory, other - Supplemental O2 Cardiovascular exam: PRESENT: +S1, +S2, tachycardia GI/Abdominal exam: PRESENT: soft. ABSENT: tenderness Extremities exam: PRESENT: +1 edema Musculoskeletal exam: PRESENT: full ROM Neurological exam: PRESENT: alert, awake, CN II-XII grossly intact. ABSENT: aphasic Psychiatric exam: PRESENT: appropriate affect, normal mood, other - Appropriately concerned about health Skin exam: PRESENT: dry Results Laboratory Results: 04/22/18 05:20 04/22/18 05:20 04/22/18 04/22/18 04/22/18 05:20 05:20 07:51 WBC 9.8 RBC 5.30 H Hgb 13.0 Hct 38.7 MCV 73 L MCH 24.5 L MCHC 33.5 RDW 16.4 H Plt Count 222 Carbonic Acid 1.05 HCO3/H2CO3 Ratio 20:1 ABG pH 7.42 ABG pCO2 34.8 L ABG pO2 72.8 L ABG HCO3 21.9 ABG O2 Saturation 95.0 ABG Base Excess -2.0 FiO2 30% Sodium 139.5 Potassium 4.1 Chloride 104 Carbon Dioxide 25 Anion Gap 11 BUN 18 Creatinine 0.65 Est GFR ( Amer) > 60 Est GFR (Non-Af Amer) > 60 Glucose 200 H Calcium 8.8 Triglycerides 114 Cholesterol 120.34 LDL Cholesterol Direct 63 VLDL Cholesterol 23.0 HDL Cholesterol 54 04/21/18 04/21/18 04/21/18 01:34 01:34 04:47 Troponin I 0.088 0.093 NT-Pro-B Natriuret Pep 987 H 04/21/18 04/21/18 04/22/18 09:53 15:30 05:20 Troponin I 0.052 0.053 NT-Pro-B Natriuret Pep 1620 H 616 H Impressions: Chest X-Ray 04/21/18 01:35 IMPRESSION: No acute cardiopulmonary process copyright 2010 [employer]- All Rights Reserved Chest/Abdomen CTA 04/21/18 03:06 IMPRESSION: Significantly suboptimal contrast bolus. No convincing evidence for pulmonary embolus. No large or central PE. Partial left upper lobe and lingular atelectasis. Could consider follow-up with bronchoscopy. Fatty infiltrative change to the liver TECHNICAL DOCUMENTATION: Quality ID # 436: Final reports with documentation of one or more dose reduction techniques (e.g., Automated exposure control, adjustment of the mA and/or kV according to patient size, use of iterative reconstruction technique) copyright 2010 [employer]- All Rights Reserved Assessment & Plan - Diagnosis (1) Acute and chronic respiratory failure with hypoxia Is this a current diagnosis for this admission?: Yes Plan: Acute issue with SOB this morning leading to BiPAP. Unclear precipating factor. Consider flash pulmonary edema - Patient's sx improved with IV Lasix, IV steroids, and BiPAP. Unclear which was most helpful - PEr discussion with patient, she has an echo done last week at Dr. Arreola's office; will need to obtain records Management - Continue diltiazem, metoprolol, Lisinopril and hydrochlorothiazide. - Cardiac diet - Daily weights and strict I&O's. - IV furosemide 20 mg twice daily - Patient educator and registered dietitian are consulted. (2) Chest pressure Is this a current diagnosis for this admission?: Yes Plan: Admitting reason. Work up: - Notable for elevated troponins however trended down; 0.88-> 0.093-> 0.052 - EKGs at admission showed tachycardia with prolonged QTc interval and abnormal Q waves to the anterior leads; no other acute findings. - CXR benign. - CT chest: partial left upper lobe and lingular atelectasis but no PE. 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 - Continue consistent carb diet with Accu-Cheks AC/HS - COntinue Lantus 30U BID + Humalog for sliding scale coverage. (4) Morbid obesity with BMI of 40.0-44.9, adult Is this a current diagnosis for this admission?: Yes Plan: Educated about importance of healthy diet, weight loss, and exercise (5) Hypertension Qualifiers: Hypertension type: unspecified Qualified Code(s): I10 - Essential (primary) hypertension Is this a current diagnosis for this admission?: Yes Plan: Management per above - Time Time Spent with patient: 15-24 minutes Medications reviewed and adjusted accordingly: Yes Anticipated discharge: Home with Homehealth Within: within 48 hours
[2018-04-22] MEDS: ATORVASTATIN CALCIUM 20 MG TABLET PO SCH (21:43)
[2018-04-22] MEDS ORDERED: SUMATRIPTAN SUCCINATE 100 MG TABLET ONE (22:05)
[2018-04-22] MEDS: SUMATRIPTAN SUCCINATE 100 MG TABLET PO PRN (23:05)
[2018-04-23] MEDS: MORPHINE SULFATE 10 MG/ML INJ IV PRN ×3 (00:17→19:35)
[2018-04-23] MEDS: IPRATROPIUM/ALBUTEROL 0.5-2.5 MG/3 ML AMPUL NEB SCH ×4 (02:07→21:50)
[2018-04-23] MEDS: GUAIFENESIN SYRP 200 MG/10 ML UDC PO PRN ×2 (05:52→12:40)
[2018-04-23] MEDS: HYDROCHLOROTHIAZIDE 25 MG TABLET PO SCH (08:09)
[2018-04-23] MEDS: INSULIN LISPRO 100 UNIT/ML 3 ML VIAL SUBCUT SCH ×4 (08:09→21:48)
[2018-04-23] MEDS: DOCUSATE SODIUM 100 MG CAPSULE PO SCH (10:15)
[2018-04-23] MEDS: ASPIRIN 81 MG TABLET, ENT COATED PO SCH (10:15)
[2018-04-23] MEDS: LISINOPRIL 10 MG TABLET PO SCH ×2 (10:16→21:47)
[2018-04-23] MEDS: METOPROLOL SUCCINATE 50 MG TAB.SR.24H PO SCH ×2 (10:16→21:48)
[2018-04-23] MEDS: GABAPENTIN 300 MG CAPSULE PO SCH ×2 (10:16→21:48)
[2018-04-23] MEDS: INSULIN GLARGINE,HUM.REC.ANLOG 1,000 UNIT/10 ML UNIT SUBCUT SCH ×2 (10:17→21:48)
[2018-04-23] MEDS: FUROSEMIDE INJ/PF 20 MG/2 ML SDV IV SCH ×2 (10:17→21:48)
[2018-04-23] MEDS: FLUTICASONE NASAL SPRAY 50 MCG/SPRY 120 SPRAY/16 GM NASL SCH (10:19)
[2018-04-23] MEDS: ENOXAPARIN SODIUM INJ 150 MG/1 ML DISP.SYRIN SUBCUT SCH ×2 (10:19→21:49)
[2018-04-23] MEDS: DILTIAZEM HCL 180 MG CAPSULE.CR PO SCH ×2 (10:19→21:47)
[2018-04-23] MEDS: FAMOTIDINE 20 MG TABLET PO SCH ×2 (10:22→21:48)
--- NOTE | 2018-04-23 16:48 | PDOC PROGRESS REPORT ---
Subjective Progress Note for:: 04/23/18 Subjective:: Doing better clinically however still requiring supplemental O2. Has not been on BiPAP since 04/22. Has dyspnea with movement. Denies fevers, chills, CP, abdominal pain, NV. Tolerating PO. DId not specifically complain of migraines today. Reason For Visit: ACUTE HYPOXIC RESPIRATORY FAILURE Physical Exam Vital Signs: Temp Pulse Resp BP Pulse Ox 98.4 F 76 20 103/53 L 94 04/23/18 11:30 04/23/18 14:13 04/23/18 14:13 04/23/18 11:30 04/23/18 14:13 Intake & Output 04/22/18 04/23/18 04/24/18 06:59 06:59 06:59 Intake Total 1208 1280 Balance 1208 1280 Weight 144.9 kg 144.9 kg General appearance: PRESENT: no acute distress, cooperative, morbidly obese, other - Pleasant Mouth exam: PRESENT: dry mucosa Respiratory exam: PRESENT: decreased breath sounds, rhonchi, tachypnea, wheezes Cardiovascular exam: PRESENT: +S1, +S2. ABSENT: tachycardia GI/Abdominal exam: PRESENT: normal bowel sounds, soft. ABSENT: tenderness Extremities exam: PRESENT: +1 edema Neurological exam: PRESENT: alert, awake, CN II-XII grossly intact Psychiatric exam: PRESENT: appropriate affect, normal mood Skin exam: PRESENT: dry, intact Results Laboratory Results: 04/22/18 05:20 04/22/18 05:20 04/21/18 04/21/18 04/21/18 01:34 01:34 04:47 Troponin I 0.088 0.093 NT-Pro-B Natriuret Pep 987 H 04/21/18 04/21/18 04/22/18 09:53 15:30 05:20 Troponin I 0.052 0.053 NT-Pro-B Natriuret Pep 1620 H 616 H Impressions: Chest X-Ray 04/21/18 01:35 IMPRESSION: No acute cardiopulmonary process copyright 2011 [employer]- All Rights Reserved Chest/Abdomen CTA 04/21/18 03:06 IMPRESSION: Significantly suboptimal contrast bolus. No convincing evidence for pulmonary embolus. No large or central PE. Partial left upper lobe and lingular atelectasis. Could consider follow-up with bronchoscopy. Fatty infiltrative change to the liver TECHNICAL DOCUMENTATION: Quality ID # 436: Final reports with documentation of one or more dose reduction techniques (e.g., Automated exposure control, adjustment of the mA and/or kV according to patient size, use of iterative reconstruction technique) copyright 2011 [employer]- All Rights Reserved Assessment & Plan - Diagnosis (1) Acute and chronic respiratory failure with hypoxia Is this a current diagnosis for this admission?: Yes Plan: Improved. No longer requiring BiPAP. Now on 4L NC - Continue IV Lasix for now - PEr discussion with patient, she has an echo done last week at Dr. Arreola's office; will need to obtain records on MONDAY 04/24 Management - Continue diltiazem, metoprolol, Lisinopril and hydrochlorothiazide. - Cardiac diet - Daily weights and strict I&O's. - IV furosemide 20 mg twice daily - Patient educator and registered dietitian are consulted. (2) Chest pressure Is this a current diagnosis for this admission?: Yes Plan: Admitting reason. Work up: - Notable for elevated troponins however trended down; 0.88-> 0.093-> 0.052 - EKGs at admission showed tachycardia with prolonged QTc interval and abnormal Q waves to the anterior leads; no other acute findings. - CXR benign. - CT chest: partial left upper lobe and lingular atelectasis but no PE. 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 Blood sugars elevated on 04/23 - Continue consistent carb diet with Accu-Cheks AC/HS - Increased Lantus from 30U BID to 40U BID on 04/23 - Humalog for sliding scale coverage. (4) Morbid obesity with BMI of 40.0-44.9, adult Is this a current diagnosis for this admission?: Yes Plan: Educated about importance of healthy diet, weight loss, and exercise (5) Hypertension Qualifiers: Hypertension type: unspecified Qualified Code(s): I10 - Essential (primary) hypertension Is this a current diagnosis for this admission?: Yes Plan: Normotensive; Management per above - Time Time Spent with patient: 15-24 minutes
[2018-04-23] MEDS: ALBUTEROL SULFATE 0.083% NEB 2.5 MG/3 ML AMPUL NEB PRN (18:03)
[2018-04-23] MEDS: DIAZEPAM 5 MG TABLET PO PRN (19:57)
[2018-04-23] MEDS: ATORVASTATIN CALCIUM 20 MG TABLET PO SCH (21:48)
--- NOTE | 2018-04-24 00:02 | EKG REPORT ---
SEVERITY:- ABNORMAL ECG - SINUS RHYTHM ABNORMAL Q SUGGESTS ANTERIOR INFARCT NONSPECIFIC T ABNORMALITIES, LATERAL LEADS : Confirmed by: Tan Mobley 24-Apr-2018 00:02:04
[2018-04-24] MEDS: MORPHINE SULFATE 10 MG/ML INJ IV PRN ×3 (00:26→20:41)
[2018-04-24] MEDS ORDERED: SUMATRIPTAN SUCCINATE 100 MG TABLET ONE (00:28)
[2018-04-24] MEDS: SUMATRIPTAN SUCCINATE 100 MG TABLET PO PRN (00:56)
[2018-04-24] MEDS: IPRATROPIUM/ALBUTEROL 0.5-2.5 MG/3 ML AMPUL NEB SCH ×4 (02:12→20:49)
[2018-04-24 04:59] LABS: HEMATOCRIT 38.9 % (36.0-47.0); MEAN CORPUSCULAR HEMOGLOBIN 24.4 pg (27.0-33.4); MEAN CORPUSCULAR HGB CONC 33.4 g/dL (32.0-36.0); MEAN CORPUSCULAR VOLUME 73 fl (80-97); PLATELET COUNT 204 10^3/uL (150-450); RED BLOOD COUNT 5.32 10^6/uL (3.72-5.28); RED CELL DISTRIBUTION WIDTH 16.5 % (11.5-14.0)
[2018-04-24 05:33] LABS: ANION GAP 8 (5-19); BLOOD UREA NITROGEN 24 mg/dL (7-20); CALCIUM 8.7 mg/dL (8.4-10.2); CARBON DIOXIDE 29 mmol/L (22-30); CHLORIDE 100 mmol/L (98-107); GLUCOSE 153 mg/dL (75-110); POTASSIUM 4.1 mmol/L (3.6-5.0); SODIUM 137.3 mmol/L (137-145)
[2018-04-24] MEDS: ONDANSETRON HCL INJ/PF 4 MG/2 ML SDV IV PRN (08:26)
[2018-04-24] MEDS: HYDROCHLOROTHIAZIDE 25 MG TABLET PO SCH (10:10)
[2018-04-24] MEDS: GABAPENTIN 300 MG CAPSULE PO SCH ×2 (10:11→22:35)
[2018-04-24] MEDS: METOPROLOL SUCCINATE 50 MG TAB.SR.24H PO SCH ×2 (10:11→23:47)
[2018-04-24] MEDS: ASPIRIN 81 MG TABLET, ENT COATED PO SCH (10:11)
[2018-04-24] MEDS: DOCUSATE SODIUM 100 MG CAPSULE PO SCH (10:11)
[2018-04-24] MEDS: FAMOTIDINE 20 MG TABLET PO SCH ×2 (10:11→22:36)
[2018-04-24] MEDS: INSULIN GLARGINE,HUM.REC.ANLOG 1,000 UNIT/10 ML UNIT SUBCUT SCH ×2 (10:11→22:37)
[2018-04-24] MEDS: LISINOPRIL 10 MG TABLET PO SCH ×2 (10:11→22:34)
[2018-04-24] MEDS: FUROSEMIDE INJ/PF 20 MG/2 ML SDV IV SCH ×2 (10:13→22:37)
[2018-04-24] MEDS: FLUTICASONE NASAL SPRAY 50 MCG/SPRY 120 SPRAY/16 GM NASL SCH (10:14)
[2018-04-24] MEDS: DILTIAZEM HCL 180 MG CAPSULE.CR PO SCH ×2 (10:14→22:37)
[2018-04-24] MEDS: ENOXAPARIN SODIUM INJ 150 MG/1 ML DISP.SYRIN SUBCUT SCH ×2 (10:15→22:36)
[2018-04-24] MEDS: INSULIN LISPRO 100 UNIT/ML 3 ML VIAL SUBCUT SCH ×4 (10:29→22:37)
--- NOTE | 2018-04-24 18:02 | PDOC PROGRESS REPORT ---
Subjective Progress Note for:: 04/24/18 Subjective:: DAYTON MENDOAZ is a 37 year old female with a limited past medical history secondary to the patient being a poor historian, but known to have asthma, CHF, hypertension, insulin-dependent diabetes, and obesity who presented to the emergency department this morning with a complaint of nonradiating substernal chest pain that worsens with deep breathing, described as pressure, and associated with dyspnea. Pt declines additional aggravating or alleviating factors. She is noted to be lying in a prone position, with even and unlabored breathing upon entering the room. Evaluation in the emergency department revealed tachycardia (HR 107), hypertension (174/105), tachypnea (46), and hypoxia on room air (87%). She is found to have mild leukocytosis (WBCs 11.7), minimally elevated d-dimer, unremarkable chemistry, indeterminately elevated troponins, elevated BNP, EKG demonstrating sinus tachycardia with borderline prolonged QTc interval, and abnormal Q waves to the anterior leads, benign chest x-ray, and CTA of the chest negative for PE but demonstrating a partial left upper lobe and lingular atelectasis. She is referred to the hospitalist service for admission and management of the above stated complaints and findings. No acute events overnight. Reason For Visit: ACUTE HYPOXIC RESPIRATORY FAILURE Physical Exam Vital Signs: Temp Pulse Resp BP Pulse Ox 98.8 F 81 18 104/64 89 L 04/24/18 15:30 04/24/18 15:30 04/24/18 15:30 04/24/18 15:30 04/24/18 15:30 Intake & Output 04/23/18 04/24/18 04/25/18 06:59 06:59 06:59 Intake Total 1280 1580 800 Balance 1280 1580 800 Weight 144.9 kg 144.9 kg General appearance: PRESENT: morbidly obese Head exam: PRESENT: atraumatic, normocephalic Respiratory exam: PRESENT: clear to auscultation russell. ABSENT: rales, rhonchi, wheezes Cardiovascular exam: PRESENT: RRR, tachycardia. ABSENT: diastolic murmur, rubs, systolic murmur Extremities exam: PRESENT: full ROM. ABSENT: calf tenderness, clubbing, pedal edema Neurological exam: PRESENT: alert, awake, oriented to person, oriented to place, oriented to time, oriented to situation, CN II-XII grossly intact. ABSENT: motor sensory deficit Results Laboratory Results: 04/24/18 04:32 04/24/18 04:32 04/24/18 04/24/18 04:32 04:32 WBC 11.0 H RBC 5.32 H Hgb 13.0 Hct 38.9 MCV 73 L MCH 24.4 L MCHC 33.4 RDW 16.5 H Plt Count 204 Sodium 137.3 Potassium 4.1 Chloride 100 Carbon Dioxide 29 Anion Gap 8 BUN 24 H Creatinine 0.75 Est GFR ( Amer) > 60 Est GFR (Non-Af Amer) > 60 Glucose 153 H Calcium 8.7 04/21/18 04/21/18 04/21/18 01:34 01:34 04:47 Troponin I 0.088 0.093 NT-Pro-B Natriuret Pep 987 H 04/21/18 04/21/18 04/22/18 09:53 15:30 05:20 Troponin I 0.052 0.053 NT-Pro-B Natriuret Pep 1620 H 616 H 04/23/18 20:45 Troponin I 0.047 NT-Pro-B Natriuret Pep Impressions: Chest X-Ray 04/21/18 01:35 IMPRESSION: No acute cardiopulmonary process copyright 2011 [employer]- All Rights Reserved Chest/Abdomen CTA 04/21/18 03:06 IMPRESSION: Significantly suboptimal contrast bolus. No convincing evidence for pulmonary embolus. No large or central PE. Partial left upper lobe and lingular atelectasis. Could consider follow-up with bronchoscopy. Fatty infiltrative change to the liver TECHNICAL DOCUMENTATION: Quality ID # 436: Final reports with documentation of one or more dose reduction techniques (e.g., Automated exposure control, adjustment of the mA and/or kV according to patient size, use of iterative reconstruction technique) copyright 2011 [employer]- All Rights Reserved Assessment & Plan - Diagnosis (1) Acute and chronic respiratory failure with hypoxia Is this a current diagnosis for this admission?: Yes Plan: Due to CHF exacerbation/asthma exacerbation. Mild improvement. SPO2 89-96% on 45 L nasal cannula FiO2 of 36% RR 18-20 Elevated BNP on admission. Per patient she had an echo done last week at Dr. Arreola office. Pending records. Continue Cardizem, metoprolol, lisinopril. Continue diltiazem, metoprolol, Lisinopril and hydrochlorothiazide. Cardiac diet, strict in and out, fluid restriction, daily weights (2) Asthma exacerbation Qualifiers: Asthma severity: moderate Asthma persistence: persistent Qualified Code(s): J45.41 - Moderate persistent asthma with (acute) exacerbation Is this a current diagnosis for this admission?: Yes Plan: Continue nebs, supplemental oxygen, BiPAP, IV steroids. Outpatient pulmonary follow-up. (3) Chest pressure Is this a current diagnosis for this admission?: Yes Plan: Troponins likely due to demand mismatch. Troponins trending down 0.88-> 0.093- > 0.052 Continue aspirin, statins. Sublingual nitrates as needed. Records for 2D echo has been requested EKGs at admission showed tachycardia with prolonged QTc interval and abnormal Q waves to the anterior leads; no other acute findings. CXR benign, CT chest: partial left upper lobe and lingular atelectasis but no PE. ProBNP elevated to 16,000 Pending cardiology recommendations. Continue telemetry. (4) Diabetes Qualifiers: Diabetes mellitus type: type 2 Diabetes mellitus [facility] insulin use: with [facility] use Diabetes mellitus complication status: with kidney complications Is this a current diagnosis for this admission?: Yes Plan: Diabetic diet. Accu-Chek, long-acting insulin, pre-meal insulin, sliding scale insulin. Adjust dosage as needed. (5) Morbid obesity with BMI of 40.0-44.9, adult Is this a current diagnosis for this admission?: Yes Plan: Diet and lifestyle modification. (6) Hypertension Qualifiers: Hypertension type: unspecified Qualified Code(s): I10 - Essential (primary) hypertension Is this a current diagnosis for this admission?: Yes Plan: Continue current meds. Adjust meds as needed. (7) Hyperlipidemia Qualifiers: Hyperlipidemia type: unspecified Qualified Code(s): E78.5 - Hyperlipidemia, unspecified Is this a current diagnosis for this admission?: Yes Plan: Continue statins. (8) TAMEKA (obstructive sleep apnea) Is this a current diagnosis for this admission?: Yes Plan: Nocturnal CPAP. Out patient nocturnal polysomnography.
[2018-04-24] MEDS: METHYLPREDNISOLONE INJ 125 MG/2 ML SDV IV SCH (22:36)
[2018-04-24] MEDS: ATORVASTATIN CALCIUM 20 MG TABLET PO SCH (22:36)
[2018-04-25] MEDS: IPRATROPIUM/ALBUTEROL 0.5-2.5 MG/3 ML AMPUL NEB SCH ×4 (02:22→20:53)
[2018-04-25] MEDS: METHYLPREDNISOLONE INJ 125 MG/2 ML SDV IV SCH ×3 (06:16→22:11)
[2018-04-25 06:22] LABS: ABSOLUTE LYMPHOCYTES (AUTO) 1.2 10^3/uL (0.5-4.7); ABSOLUTE MONOCYTES (AUTO) 0.3 10^3/uL (0.1-1.4); ABSOLUTE NEUT (AUTO) 7.4 10^3/uL (1.7-8.2); BASOPHILS % (AUTO) 0.3 % (0-2); HEMATOCRIT 40.6 % (36.0-47.0); HEMOGLOBIN 13.5 g/dL (12.0-15.5); LYMPHOCYTES % (AUTO) 13.7 % (13-45); MEAN CORPUSCULAR HEMOGLOBIN 24.4 pg (27.0-33.4); MEAN CORPUSCULAR HGB CONC 33.3 g/dL (32.0-36.0); MEAN CORPUSCULAR VOLUME 73 fl (80-97); MONOCYTES % (AUTO) 3.4 % (3-13); PLATELET COUNT 197 10^3/uL (150-450); RED BLOOD COUNT 5.54 10^6/uL (3.72-5.28); RED CELL DISTRIBUTION WIDTH 16.3 % (11.5-14.0); SEGMENTED NEUTROPHILS % (AUTO) 82.6 % (42-78); TOTAL CELLS COUNTED % (AUTO) 100 %
[2018-04-25 06:51] LABS: ALANINE AMINOTRANSFERASE 28 U/L (9-52); ALBUMIN 3.7 g/dL (3.5-5.0); ALKALINE PHOSPHATASE 63 U/L (38-126); ANION GAP 11 (5-19); ASPARTATE AMINO TRANSFERASE 14 U/L (14-36); BILIRUBIN,DIRECT 0.2 mg/dL (0.0-0.4); BILIRUBIN,TOTAL 0.5 mg/dL (0.2-1.3); BLOOD UREA NITROGEN 25 mg/dL (7-20); CALCIUM 9.2 mg/dL (8.4-10.2); CARBON DIOXIDE 27 mmol/L (22-30); CHLORIDE 98 mmol/L (98-107); GLUCOSE 318 mg/dL (75-110); POTASSIUM 5.2 mmol/L (3.6-5.0); SODIUM 135.9 mmol/L (137-145); TOTAL PROTEIN 6.3 g/dL (6.3-8.2)
[2018-04-25] MEDS: GABAPENTIN 300 MG CAPSULE PO SCH ×2 (09:28→21:35)
[2018-04-25] MEDS: METOPROLOL SUCCINATE 50 MG TAB.SR.24H PO SCH ×2 (09:29→21:37)
[2018-04-25] MEDS: HYDROCHLOROTHIAZIDE 25 MG TABLET PO SCH (09:29)
[2018-04-25] MEDS: LISINOPRIL 10 MG TABLET PO SCH ×2 (09:29→21:36)
[2018-04-25] MEDS: DOCUSATE SODIUM 100 MG CAPSULE PO SCH (09:29)
[2018-04-25] MEDS: FAMOTIDINE 20 MG TABLET PO SCH ×2 (09:29→21:35)
[2018-04-25] MEDS: ASPIRIN 81 MG TABLET, ENT COATED PO SCH (09:29)
[2018-04-25] MEDS: INSULIN LISPRO 100 UNIT/ML 3 ML VIAL SUBCUT SCH ×4 (09:30→22:50)
[2018-04-25] MEDS: INSULIN GLARGINE,HUM.REC.ANLOG 1,000 UNIT/10 ML UNIT SUBCUT SCH ×2 (09:30→22:08)
[2018-04-25] MEDS: FUROSEMIDE INJ/PF 20 MG/2 ML SDV IV SCH ×2 (09:30→22:09)
[2018-04-25] MEDS: DILTIAZEM HCL 180 MG CAPSULE.CR PO SCH ×2 (09:32→21:33)
[2018-04-25] MEDS: FLUTICASONE NASAL SPRAY 50 MCG/SPRY 120 SPRAY/16 GM NASL SCH (09:32)
[2018-04-25] MEDS: ENOXAPARIN SODIUM INJ 150 MG/1 ML DISP.SYRIN SUBCUT SCH ×2 (09:32→22:09)
[2018-04-25] MEDS ORDERED: TRAMADOL HCL 50 MG TABLET PO PRN (17:23)
--- NOTE | 2018-04-25 17:29 | PDOC PROGRESS REPORT ---
Subjective Progress Note for:: 04/25/18 Subjective:: The patient is a morbidly obese 37-year-old -[place] female who was admitted to the hospital with worsening acute on chronic respiratory failure secondary to an asthma exacerbation. She also was found to have acute on chronic diastolic congestive heart failure. She has been receiving IV Solu- Medrol and IV Lasix. Today when I saw her she states that she is feeling significantly worse. She is having worsening cough with bronchospasm. She is having chest discomfort and chest wall pain. She denies fever or shaking chills. No heart palpitations. No nausea vomiting or diarrhea. No urinary complaints. Reason For Visit: ACUTE HYPOXIC RESPIRATORY FAILURE Physical Exam Vital Signs: Temp Pulse Resp BP Pulse Ox 98.5 F 77 20 105/50 L 91 L 04/25/18 16:00 04/25/18 16:00 04/25/18 16:00 04/25/18 16:00 04/25/18 16:00 Intake & Output 04/24/18 04/25/18 04/26/18 06:59 06:59 06:59 Intake Total 6019 919 1665 Balance 9452 826 6583 Weight 144.9 kg General appearance: PRESENT: morbidly obese, other - This is a pleasant 37-year-old morbidly obese -[place] female. She is having frequent episodes of bronchospasm and appears to feel quite poorly. Head exam: PRESENT: atraumatic, normocephalic Mouth exam: PRESENT: moist, tongue midline Respiratory exam: PRESENT: chest wall tenderness, wheezes, other - Coarse wheezing noted throughout all lung adams. ABSENT: accessory muscle use Cardiovascular exam: PRESENT: RRR. ABSENT: diastolic murmur, rubs, systolic murmur GI/Abdominal exam: PRESENT: normal bowel sounds, soft. ABSENT: distended, guarding, mass, organolmegaly, rebound, tenderness Rectal exam: PRESENT: deferred Extremities exam: PRESENT: full ROM. ABSENT: calf tenderness, clubbing, pedal edema Musculoskeletal exam: PRESENT: ambulatory Neurological exam: PRESENT: alert, awake, oriented to person, oriented to place, oriented to time, oriented to situation, CN II-XII grossly intact. ABSENT: motor sensory deficit Psychiatric exam: PRESENT: appropriate affect, normal mood. ABSENT: homicidal ideation, suicidal ideation Skin exam: PRESENT: dry, intact, warm. ABSENT: cyanosis, rash Results Laboratory Results: 04/25/18 05:49 04/25/18 05:49 04/25/18 04/25/18 05:49 05:49 WBC 9.0 RBC 5.54 H Hgb 13.5 Hct 40.6 MCV 73 L MCH 24.4 L MCHC 33.3 RDW 16.3 H Plt Count 197 Seg Neutrophils % 82.6 H Lymphocytes % 13.7 Monocytes % 3.4 Eosinophils % 0.0 Basophils % 0.3 Absolute Neutrophils 7.4 Absolute Lymphocytes 1.2 Absolute Monocytes 0.3 Absolute Eosinophils 0.0 Absolute Basophils 0.0 Sodium 135.9 L Potassium 5.2 H Chloride 98 Carbon Dioxide 27 Anion Gap 11 BUN 25 H Creatinine 0.69 Est GFR ( Amer) > 60 Est GFR (Non-Af Amer) > 60 Glucose 318 H Calcium 9.2 Magnesium 2.0 Total Bilirubin 0.5 AST 14 ALT 28 Alkaline Phosphatase 63 Total Protein 6.3 Albumin 3.7 04/22/18 06:55 Sputum Gram Stain - Final 04/22/18 06:55 Sputum Sputum Culture - Final Staphylococcus Aureus Normal Martha 04/21/18 04/21/18 04/21/18 01:34 01:34 04:47 Troponin I 0.088 0.093 NT-Pro-B Natriuret Pep 987 H 04/21/18 04/21/18 04/22/18 09:53 15:30 05:20 Troponin I 0.052 0.053 NT-Pro-B Natriuret Pep 1620 H 616 H 04/23/18 20:45 Troponin I 0.047 NT-Pro-B Natriuret Pep Impressions: Chest X-Ray 04/21/18 01:35 IMPRESSION: No acute cardiopulmonary process copyright 2010 [employer]- All Rights Reserved Chest/Abdomen CTA 04/21/18 03:06 IMPRESSION: Significantly suboptimal contrast bolus. No convincing evidence for pulmonary embolus. No large or central PE. Partial left upper lobe and lingular atelectasis. Could consider follow-up with bronchoscopy. Fatty infiltrative change to the liver TECHNICAL DOCUMENTATION: Quality ID # 436: Final reports with documentation of one or more dose reduction techniques (e.g., Automated exposure control, adjustment of the mA and/or kV according to patient size, use of iterative reconstruction technique) copyright 2011 [employer]- All Rights Reserved Assessment & Plan - Diagnosis (1) Acute and chronic respiratory failure with hypoxia Is this a current diagnosis for this admission?: Yes Plan: Secondary to asthma exacerbation as well as probable acute bronchitis. In looking back she did have a sputum sample several days ago that was positive for MSSA. She is received no antibiotics since coming to the hospital and her cough is worsening. Treatment will be outlined below. She will continue oxygen support as needed and aggressive breathing treatments. (2) Acute bronchitis Is this a current diagnosis for this admission?: Yes Plan: The patient had a sputum culture positive for MSSA on 02/19/2019. She is received no antibiotic therapy. I am going to place her on IV Levaquin. This will be the first day of treatment. Due to the severity of her cough I am going to get a repeat CT scan of the chest to rule out an underlying pneumonia. (3) Asthma exacerbation Qualifiers: Asthma severity: moderate Asthma persistence: persistent Qualified Code(s): J45.41 - Moderate persistent asthma with (acute) exacerbation Is this a current diagnosis for this admission?: Yes Plan: Continue IV Solu-Medrol and aggressive breathing treatments. (4) Acute on chronic diastolic (congestive) heart failure Is this a current diagnosis for this admission?: Yes Plan: Continue IV diuresis. Currently she is tolerating the current regimen. Her renal function is stable. We are awaiting records from Dr. Arreola's office that she recently had an outpatient echocardiogram. (5) Musculoskeletal chest pain Is this a current diagnosis for this admission?: Yes Plan: She has significant musculoskeletal chest pain that is reproducible on exam. I will get an EKG just to rule out any sort of ischemic changes but this is clearly due to her frequent coughing. We will give her a one-time dose of IV Toradol. She will have some tramadol available as well. She has been receiving IV morphine. (6) Diabetes Qualifiers: Diabetes mellitus type: type 2 Diabetes mellitus [facility] insulin use: with [facility] use Diabetes mellitus complication status: with kidney complications Is this a current diagnosis for this admission?: Yes Plan: Diabetes blood sugars are markedly uncontrolled due to her steroids. She has been receiving 40 units of Lantus twice daily. I am going to start her on 20 units of Humalog 3 times daily before meals in addition to her sliding scale. We may need to make further adjustments. She has been receiving 60 mg of IV Solu-Medrol every 8 hours and I am going to cut this back to 40 today. (7) Hyperkalemia Is this a current diagnosis for this admission?: Yes Plan: She will have a chemistry panel checked in the morning (8) Morbid obesity Is this a current diagnosis for this admission?: Yes Plan: Dietary discretion is advised (9) Full code status Is this a current diagnosis for this admission?: Yes - Time Time Spent with patient: 35 or more minutes - Inpatient Certification Medical Necessity: Need Close Monitoring Due to Risk of Patient Decompensation, Need for Nebulizer Therapy and Monitoring of Response, Need for IV Antibiotics, Other - Inpatient hospitalization remains necessary. I am concerned the patient may be developing an underlying pneumonia. She has not received antibiotics and she has staph aureus growing in her sputum. She is being started on parenteral antibiotics and she will continue parenteral steroids for now. Timing of disposition will be determined by her clinical course
--- NOTE | 2018-04-25 17:52 | EKG REPORT ---
SEVERITY:- ABNORMAL ECG - SINUS RHYTHM ABNORMAL Q SUGGESTS ANTERIOR INFARCT : Confirmed by: Heaven Marshall MD 25-Apr-2018 17:52:23
--- NOTE | 2018-04-25 18:39 | RADIOLOGY REPORT (SQ) ---
EXAM DESCRIPTION: CT CHEST WITH COMPLETED DATE/TIME: 04/25/2018 6:24 pm REASON FOR STUDY: cough, rule out pna or other pathology COMPARISON: Chest CT dated 04/21/2018 TECHNIQUE: CT scan of the chest performed using helical scanning technique with dynamic intravenous contrast injection. Images reviewed with lung, soft tissue and bone windows. Reconstructed coronal and sagittal MPR and MIP images reviewed. All images stored on PACS. All CT scanners at this facility use dose modulation, iterative reconstruction, and/or weight based d osing when appropriate to reduce radiation dose to as low as reasonably achievable (ALARA). [facility]: Dose Right [facility]: CareDose [facility]: Dose Right [facility]: Teradose 4D [facility]: documistic CONTRAST TYPE AND DOSE: contrast/concentration: Isovue 350.00 mg/ml; Total Contrast Delivered: 80.0 ml; Total Saline Delivered: 55.0 ml RENAL FUNCTION: BUN 25, creatinine 0.69 RADIATION DOSE: CT Rad equipment meets quality standard of care and radiation dose reduction techniq ues were employed. CTDIvol: 21.1 mGy. DLP: 868 mGy-cm. . LIMITATIONS: None. FINDINGS: LUNGS AND PLEURA: No consolidation or effusions. Minimal lingular and basilar atelectasis . No pneumothorax. HILAR AND MEDIASTINAL STRUCTURES: No identified masses or abnormal nodes. HEART AND VASCULAR STRUCTURES: No aneurysm or dissection. No central pulmonary emboli. No pericardi al effusion. HARDWARE: None in the chest. UPPER ABDOMEN: No significant findings. Limited exam. THYROID AND OTHER SOFT TISSUES: No masses. No adenopathy. BONES: No significant finding. OTHER: No other significant finding. IMPRESSION: Minimal lingular and basilar atelectasis. No consolidation. TECHNICAL DOCUMENTATION: JOB ID: [id number] Quality ID # 436: Final reports with documentation of one or more dose reduction techniques (e.g., Au tomated exposure control, adjustment of the mA and/or kV according to patient size, use of iterative reconstruction technique) 2010 [employer]- All Rights Reserved Reading location - IP/workstation name: [email or web address]
[2018-04-25] MEDS ORDERED: KETOROLAC TROMETHAMINE INJ/PF 30 MG/1 ML SDV IV ONE (19:00)
[2018-04-25] MEDS: ATORVASTATIN CALCIUM 20 MG TABLET PO SCH (21:34)
[2018-04-25] MEDS ORDERED: INSULIN REG, HUMAN 100 UNIT/ML 3 ML VIAL IV ONE (22:15)
[2018-04-25] MEDS ORDERED: INSULIN REG, HUMAN 100 UNIT/ML 3 ML VIAL (PYX) ONE (22:56)
[2018-04-25] MEDS: MORPHINE SULFATE 10 MG/ML INJ IV PRN (23:12)
[2018-04-25] MEDS: LEVOFLOXACIN 750 MG/D5W RTU 750 MG/150 ML RTUPB IV SCH (23:13)
[2018-04-26] MEDS: ALBUTEROL SULFATE 0.083% NEB 2.5 MG/3 ML AMPUL NEB PRN (00:09)
[2018-04-26] MEDS: IPRATROPIUM/ALBUTEROL 0.5-2.5 MG/3 ML AMPUL NEB SCH ×4 (02:47→21:44)
[2018-04-26] MEDS: GUAIFENESIN SYRP 200 MG/10 ML UDC PO PRN (03:29)
[2018-04-26] MEDS: MORPHINE SULFATE 10 MG/ML INJ IV PRN ×3 (05:27→23:06)
[2018-04-26] MEDS: METHYLPREDNISOLONE INJ 125 MG/2 ML SDV IV SCH ×2 (06:14→12:59)
[2018-04-26 06:45] LABS: HEMATOCRIT 36.6 % (36.0-47.0); HEMOGLOBIN 12.1 g/dL (12.0-15.5); MEAN CORPUSCULAR HEMOGLOBIN 24.1 pg (27.0-33.4); MEAN CORPUSCULAR VOLUME 73 fl (80-97); PLATELET COUNT 212 10^3/uL (150-450); RED BLOOD COUNT 5.01 10^6/uL (3.72-5.28); RED CELL DISTRIBUTION WIDTH 15.9 % (11.5-14.0); WHITE BLOOD COUNT 17.9 10^3/uL (4.0-10.5)
[2018-04-26 07:12] LABS: ANION GAP 11 (5-19); BLOOD UREA NITROGEN 31 mg/dL (7-20); CALCIUM 8.9 mg/dL (8.4-10.2); CARBON DIOXIDE 29 mmol/L (22-30); CHLORIDE 95 mmol/L (98-107); GLUCOSE 357 mg/dL (75-110); POTASSIUM 4.5 mmol/L (3.6-5.0); SODIUM 134.9 mmol/L (137-145)
[2018-04-26] MEDS: INSULIN LISPRO 100 UNIT/ML 3 ML VIAL SUBCUT SCH ×7 (08:20→22:38)
[2018-04-26] MEDS: SUMATRIPTAN SUCCINATE 100 MG TABLET PO PRN (08:55)
[2018-04-26] MEDS: HYDROCHLOROTHIAZIDE 25 MG TABLET PO SCH (08:56)
[2018-04-26] MEDS: DILTIAZEM HCL 180 MG CAPSULE.CR PO SCH ×2 (09:01→22:39)
[2018-04-26] MEDS: DOCUSATE SODIUM 100 MG CAPSULE PO SCH (09:01)
[2018-04-26] MEDS: ASPIRIN 81 MG TABLET, ENT COATED PO SCH (09:01)
[2018-04-26] MEDS: FUROSEMIDE INJ/PF 20 MG/2 ML SDV IV SCH ×2 (09:02→22:37)
[2018-04-26] MEDS: INSULIN GLARGINE,HUM.REC.ANLOG 1,000 UNIT/10 ML UNIT SUBCUT SCH ×2 (09:02→22:39)
[2018-04-26] MEDS: FLUTICASONE NASAL SPRAY 50 MCG/SPRY 120 SPRAY/16 GM NASL SCH (09:02)
[2018-04-26] MEDS: GABAPENTIN 300 MG CAPSULE PO SCH ×2 (09:03→22:40)
[2018-04-26] MEDS: FAMOTIDINE 20 MG TABLET PO SCH ×2 (09:03→22:40)
[2018-04-26] MEDS: ENOXAPARIN SODIUM INJ 150 MG/1 ML DISP.SYRIN SUBCUT SCH (09:03)
[2018-04-26] MEDS: LISINOPRIL 10 MG TABLET PO SCH ×2 (09:04→22:40)
[2018-04-26] MEDS: METOPROLOL SUCCINATE 50 MG TAB.SR.24H PO SCH ×2 (09:04→22:40)
[2018-04-26] MEDS: DIAZEPAM 5 MG TABLET PO PRN (14:20)
--- NOTE | 2018-04-26 15:59 | PDOC PROGRESS REPORT ---
Subjective Progress Note for:: 04/26/18 Subjective:: This is 77 years old black female patient presented with chief complaint of chest pressure associated with dyspnea. Her workup is unremarkable except her O2 saturation is 87% and her ABG shows reduced PO2 level. Patient is being managed with bronchodilators and prednisone. Her main chief complaint today is epistaxis. Patient used to have on and off epistaxis but is not as bad at this one. Currently his epistaxis has stopped. Patient is anxious and apprehensive since she has been told she has cardiomegaly on chest x-ray. I tried to explain to her does not patient was congestive heart failure has enlarged heart. Her echocardiogram which is done in [facility] in March of this year reported as global hypokinesis with ejection fraction 35-40%. Reason For Visit: ACUTE HYPOXIC RESPIRATORY FAILURE Physical Exam Vital Signs: Temp Pulse Resp BP Pulse Ox 97.9 F 86 20 103/51 L 93 04/26/18 04:26 04/26/18 14:00 04/26/18 08:50 04/26/18 04:26 04/26/18 08:50 Intake & Output 04/25/18 04/26/18 04/27/18 06:59 06:59 06:59 Intake Total 800 2396 Balance 800 2396 Weight 146.5 kg General appearance: PRESENT: mild distress Head exam: PRESENT: atraumatic, normocephalic Eye exam: PRESENT: conjunctiva pink Mouth exam: PRESENT: moist Neck exam: ABSENT: carotid bruit, JVD, lymphadenopathy, thyromegaly Respiratory exam: PRESENT: clear to auscultation russell. ABSENT: rales, rhonchi, wheezes Cardiovascular exam: PRESENT: RRR. ABSENT: diastolic murmur, rubs, systolic murmur GI/Abdominal exam: PRESENT: normal bowel sounds, soft. ABSENT: distended, guarding, mass, organolmegaly, rebound, tenderness Extremities exam: PRESENT: +1 edema Neurological exam: PRESENT: alert, awake, oriented to time, reflexes normal Results Laboratory Results: 04/26/18 05:37 04/26/18 05:37 04/26/18 04/26/18 05:37 05:37 WBC 17.9 H RBC 5.01 Hgb 12.1 Hct 36.6 MCV 73 L MCH 24.1 L MCHC 33.0 RDW 15.9 H Plt Count 212 Sodium 134.9 L Potassium 4.5 Chloride 95 L Carbon Dioxide 29 Anion Gap 11 BUN 31 H Creatinine 0.78 Est GFR ( Amer) > 60 Est GFR (Non-Af Amer) > 60 Glucose 357 H Calcium 8.9 Magnesium 2.3 04/22/18 06:55 Sputum Gram Stain - Final 04/22/18 06:55 Sputum Sputum Culture - Final Staphylococcus Aureus Normal Martha 04/21/18 04/21/18 04/21/18 01:34 01:34 04:47 Troponin I 0.088 0.093 NT-Pro-B Natriuret Pep 987 H 04/21/18 04/21/18 04/22/18 09:53 15:30 05:20 Troponin I 0.052 0.053 NT-Pro-B Natriuret Pep 1620 H 616 H 04/23/18 20:45 Troponin I 0.047 NT-Pro-B Natriuret Pep Impressions: Chest X-Ray 04/21/18 01:35 IMPRESSION: No acute cardiopulmonary process copyright 2011 [employer]- All Rights Reserved Chest/Abdomen CTA 04/21/18 03:06 IMPRESSION: Significantly suboptimal contrast bolus. No convincing evidence for pulmonary embolus. No large or central PE. Partial left upper lobe and lingular atelectasis. Could consider follow-up with bronchoscopy. Fatty infiltrative change to the liver TECHNICAL DOCUMENTATION: Quality ID # 436: Final reports with documentation of one or more dose reduction techniques (e.g., Automated exposure control, adjustment of the mA and/or kV according to patient size, use of iterative reconstruction technique) copyright 2011 [employer]- All Rights Reserved Chest CT 04/25/18 00:00 IMPRESSION: Minimal lingular and basilar atelectasis. No consolidation. Assessment & Plan - Diagnosis (1) Acute hypoxemic respiratory failure Is this a current diagnosis for this admission?: Yes Plan: Is been improving (2) Acute on chronic systolic (congestive) heart failure Is this a current diagnosis for this admission?: Yes Plan: Her latest echo did not is [place] reported as ejection fraction 35-40%. I will optimize her cardiac medications. (3) Leukocytosis Is this a current diagnosis for this admission?: Yes Plan: May be related to steroid use. (4) Acute bronchitis Is this a current diagnosis for this admission?: Yes Plan: Continue current regimen (5) Asthma exacerbation Qualifiers: Asthma severity: moderate Is this a current diagnosis for this admission?: Yes Plan: I discontinued the Solu-Medrol 40 mg IV every 8 hr to prednisone 20 mg p.o. twice daily. (6) A-fib Qualifiers: Atrial fibrillation type: chronic Qualified Code(s): I48.2 - Chronic atrial fibrillation Is this a current diagnosis for this admission?: Yes Plan: Rate controlled (7) Diabetes mellitus Qualifiers: Diabetes mellitus type: type 2 Is this a current diagnosis for this admission?: Yes Plan: The patient has been getting Lantus 40 units subcu twice a day. But still running hyperglycemia most probably due to the steroid use she has been. (8) Morbid obesity with BMI of 45.0-49.9, adult Is this a current diagnosis for this admission?: Yes Plan: Lifestyle modification advised.
[2018-04-26] MEDS: LEVOFLOXACIN 750 MG/D5W RTU 750 MG/150 ML RTUPB IV SCH (17:17)
[2018-04-26] MEDS: PREDNISONE 20 MG TABLET PO SCH (17:17)
[2018-04-26] MEDS: ATORVASTATIN CALCIUM 20 MG TABLET PO SCH (22:40)
[2018-04-27] MEDS: IPRATROPIUM/ALBUTEROL 0.5-2.5 MG/3 ML AMPUL NEB SCH ×4 (01:50→20:13)
[2018-04-27 06:40] LABS: ABSOLUTE BASOPHILS # (AUTO) 0.1 10^3/uL (0.0-0.2); ABSOLUTE LYMPHOCYTES (AUTO) 1.9 10^3/uL (0.5-4.7); ABSOLUTE MONOCYTES (AUTO) 1.2 10^3/uL (0.1-1.4); ABSOLUTE NEUT (AUTO) 14.9 10^3/uL (1.7-8.2); BASOPHILS % (AUTO) 0.3 % (0-2); HEMATOCRIT 36.3 % (36.0-47.0); HEMOGLOBIN 11.8 g/dL (12.0-15.5); LYMPHOCYTES % (AUTO) 10.4 % (13-45); MEAN CORPUSCULAR HEMOGLOBIN 23.7 pg (27.0-33.4); MEAN CORPUSCULAR HGB CONC 32.4 g/dL (32.0-36.0); MEAN CORPUSCULAR VOLUME 73 fl (80-97); MONOCYTES % (AUTO) 6.6 % (3-13); PLATELET COUNT 219 10^3/uL (150-450); RED BLOOD COUNT 4.97 10^6/uL (3.72-5.28); RED CELL DISTRIBUTION WIDTH 16.1 % (11.5-14.0); SEGMENTED NEUTROPHILS % (AUTO) 82.7 % (42-78); TOTAL CELLS COUNTED % (AUTO) 100 %; WHITE BLOOD COUNT 18.1 10^3/uL (4.0-10.5)
[2018-04-27] MEDS: LISINOPRIL 10 MG TABLET PO SCH ×2 (09:35→22:49)
[2018-04-27] MEDS: FAMOTIDINE 20 MG TABLET PO SCH ×2 (09:35→22:50)
[2018-04-27] MEDS: PREDNISONE 20 MG TABLET PO SCH (09:35)
[2018-04-27] MEDS: DOCUSATE SODIUM 100 MG CAPSULE PO SCH (09:35)
[2018-04-27] MEDS: GABAPENTIN 300 MG CAPSULE PO SCH ×2 (09:35→22:50)
[2018-04-27] MEDS: HYDROCHLOROTHIAZIDE 25 MG TABLET PO SCH (09:35)
[2018-04-27] MEDS: METOPROLOL SUCCINATE 50 MG TAB.SR.24H PO SCH ×2 (09:35→22:50)
[2018-04-27] MEDS: ASPIRIN 81 MG TABLET, ENT COATED PO SCH (09:35)
[2018-04-27] MEDS: INSULIN LISPRO 100 UNIT/ML 3 ML VIAL SUBCUT SCH ×7 (09:35→22:49)
[2018-04-27] MEDS: INSULIN GLARGINE,HUM.REC.ANLOG 1,000 UNIT/10 ML UNIT SUBCUT SCH ×2 (09:36→20:59)
[2018-04-27] MEDS: DILTIAZEM HCL 180 MG CAPSULE.CR PO SCH ×2 (09:37→22:50)
[2018-04-27] MEDS: FUROSEMIDE INJ/PF 20 MG/2 ML SDV IV SCH ×2 (09:37→22:49)
[2018-04-27] MEDS: FLUTICASONE NASAL SPRAY 50 MCG/SPRY 120 SPRAY/16 GM NASL SCH (09:37)
--- NOTE | 2018-04-27 16:07 | PDOC PROGRESS REPORT ---
Subjective Progress Note for:: 04/27/18 Subjective:: I seen patient resting in bed. She reports this her epistaxis has subsided. Her shortness of breath is improving. Reason For Visit: ACUTE HYPOXIC RESPIRATORY FAILURE Physical Exam Vital Signs: Temp Pulse Resp BP Pulse Ox 98.1 F 63 18 131/79 H 93 04/27/18 07:51 04/27/18 14:00 04/27/18 13:59 04/27/18 07:51 04/27/18 08:37 Intake & Output 04/26/18 04/27/18 04/28/18 06:59 06:59 06:59 Intake Total 2396 2662 Balance 2396 2662 Weight 146.5 kg 147.4 kg General appearance: PRESENT: mild distress Head exam: PRESENT: atraumatic Eye exam: PRESENT: conjunctiva pink Mouth exam: PRESENT: moist Neck exam: ABSENT: carotid bruit, JVD, lymphadenopathy, thyromegaly Cardiovascular exam: PRESENT: RRR. ABSENT: diastolic murmur, rubs, systolic murmur GI/Abdominal exam: PRESENT: normal bowel sounds, soft. ABSENT: distended, guarding, mass, organolmegaly, rebound, tenderness Extremities exam: PRESENT: +1 edema Neurological exam: PRESENT: alert, awake, oriented to time, oriented to situation Results Laboratory Results: 04/27/18 06:14 04/26/18 05:37 04/26/18 04/27/18 21:00 06:14 WBC 18.1 H RBC 4.97 Hgb 11.8 L Hct 36.3 MCV 73 L MCH 23.7 L MCHC 32.4 RDW 16.1 H Plt Count 219 Seg Neutrophils % 82.7 H Lymphocytes % 10.4 L Monocytes % 6.6 Eosinophils % 0.0 Basophils % 0.3 Absolute Neutrophils 14.9 H Absolute Lymphocytes 1.9 Absolute Monocytes 1.2 Absolute Eosinophils 0.0 Absolute Basophils 0.1 Stool Occult Blood POSITIVE 04/21/18 04/21/18 04/21/18 01:34 01:34 04:47 Troponin I 0.088 0.093 NT-Pro-B Natriuret Pep 987 H 04/21/18 04/21/18 04/22/18 09:53 15:30 05:20 Troponin I 0.052 0.053 NT-Pro-B Natriuret Pep 1620 H 616 H 04/23/18 20:45 Troponin I 0.047 NT-Pro-B Natriuret Pep Impressions: Chest X-Ray 04/21/18 01:35 IMPRESSION: No acute cardiopulmonary process copyright 2010 [email or web address]- All Rights Reserved Chest/Abdomen CTA 04/21/18 03:06 IMPRESSION: Significantly suboptimal contrast bolus. No convincing evidence for pulmonary embolus. No large or central PE. Partial left upper lobe and lingular atelectasis. Could consider follow-up with bronchoscopy. Fatty infiltrative change to the liver TECHNICAL DOCUMENTATION: Quality ID # 436: Final reports with documentation of one or more dose reduction techniques (e.g., Automated exposure control, adjustment of the mA and/or kV according to patient size, use of iterative reconstruction technique) copyright 2010 [email or web address]- All Rights Reserved Chest CT 04/25/18 00:00 IMPRESSION: Minimal lingular and basilar atelectasis. No consolidation. Assessment & Plan - Diagnosis (1) Acute hypoxemic respiratory failure Is this a current diagnosis for this admission?: Yes Plan: Improving (2) Acute on chronic systolic (congestive) heart failure Is this a current diagnosis for this admission?: Yes Plan: Continue current regimen (3) Leukocytosis Is this a current diagnosis for this admission?: Yes Plan: Her white cell count is slightly increased from 17-18. Repeat CBC in a.m. Decreased the dose of her prednisone from 40 mg p.o. daily to 20 mg p.o. daily (4) Acute bronchitis Is this a current diagnosis for this admission?: Yes Plan: Continue current regimen (5) Asthma exacerbation Qualifiers: Asthma severity: moderate Is this a current diagnosis for this admission?: Yes Plan: I discontinued the Solu-Medrol 40 mg IV every 8 hr to prednisone 20 mg p.o. twice daily. (6) A-fib Qualifiers: Atrial fibrillation type: chronic Qualified Code(s): I48.2 - Chronic atrial fibrillation Is this a current diagnosis for this admission?: Yes Plan: Rate controlled (7) Diabetes mellitus Qualifiers: Diabetes mellitus type: type 2 Is this a current diagnosis for this admission?: Yes Plan: The patient has been getting Lantus 40 units subcu twice a day. But still running hyperglycemia most probably due to the steroid use she has been. (8) Morbid obesity with BMI of 45.0-49.9, adult Is this a current diagnosis for this admission?: Yes Plan: Lifestyle modification advised.
--- NOTE | 2018-04-27 16:51 | Progress Note ---
Provider Note Provider Note: ID Consult Note Asked to review chart by Pharmacy. Pt not seen or examined. Ms Mccallum is a 37 year old woman with PMH including asthma, CHF, HTN, DM, and obesity who presented to [place] on 04/21/18 with c/o CP or pressure worse with deep breathing and SOB. She was found to have tachycardia, tachypnea, hypoxia on room air, decreased bibasilar breath sounds, mild leukocytosis, elevated BNP, CTA chest read as showing partial L upper lobe and lingular atelectasis. She was admitted with hypoxic respiratory failure due to asthma exacerbation. She had no fever initially, one temperature of 100.8 on 04/22. Sputum sent on 04/22 grew 2+ MSSA and 4+ normal brandyn. She has had no fever since 04/22. She is getting corticosteroids. On 04/25, pt complained of feeling worse with chest wall pain, worsened cough and bronchospasm without fever or chills and was noted on exam to have coarse wheezes throughout. Levaquin was started pending further imaging with repeat CT chest, which showed minimal lingular and basilar atelectasis and no consolidation. Her SOB has been improving with corticosteroids and bronchodilators for the asthma exacerbation and optimization of her heart failure medications. Impression/Recommendations - Agree, leukocytosis likely due to corticosteroid induced demargination. - Pt has had no consolidation on CT chest and improvement in breathing with asthma exacerbation and CHF management. MSSA in sputum most likely represents a colonizer of the upper airway. No pneumonia is evident to support continued Levaquin, and with her also needing corticosteroids to manage the asthma exacerbation, there may be an increased risk for quinolone-associated tendinopathy. - Recommend discontinuing Levaquin. Robert Penaloza MD [facility] Infectious Diseases pager [phone]
[2018-04-27] MEDS: LEVOFLOXACIN 750 MG/D5W RTU 750 MG/150 ML RTUPB IV SCH (17:53)
[2018-04-27] MEDS ORDERED: FLUCONAZOLE 100 MG TABLET PO ONE (20:00)
[2018-04-27] MEDS: ATORVASTATIN CALCIUM 20 MG TABLET PO SCH (22:50)
[2018-04-28] MEDS: IPRATROPIUM/ALBUTEROL 0.5-2.5 MG/3 ML AMPUL NEB SCH ×3 (01:58→14:16)
[2018-04-28 06:29] LABS: HEMATOCRIT 38.4 % (36.0-47.0); HEMOGLOBIN 12.9 g/dL (12.0-15.5); MEAN CORPUSCULAR HEMOGLOBIN 24.2 pg (27.0-33.4); MEAN CORPUSCULAR HGB CONC 33.6 g/dL (32.0-36.0); MEAN CORPUSCULAR VOLUME 72 fl (80-97); PLATELET COUNT 212 10^3/uL (150-450); RED BLOOD COUNT 5.33 10^6/uL (3.72-5.28); RED CELL DISTRIBUTION WIDTH 16.4 % (11.5-14.0); WHITE BLOOD COUNT 17.2 10^3/uL (4.0-10.5)
[2018-04-28] MEDS: HYDROCHLOROTHIAZIDE 25 MG TABLET PO SCH (07:57)
[2018-04-28] MEDS: INSULIN LISPRO 100 UNIT/ML 3 ML VIAL SUBCUT SCH ×6 (07:57→17:30)
[2018-04-28] MEDS: FLUTICASONE NASAL SPRAY 50 MCG/SPRY 120 SPRAY/16 GM NASL SCH (09:25)
[2018-04-28] MEDS: ASPIRIN 81 MG TABLET, ENT COATED PO SCH (09:32)
[2018-04-28] MEDS: LISINOPRIL 10 MG TABLET PO SCH (09:32)
[2018-04-28] MEDS: FUROSEMIDE INJ/PF 20 MG/2 ML SDV IV SCH (09:32)
[2018-04-28] MEDS: FAMOTIDINE 20 MG TABLET PO SCH (09:32)
[2018-04-28] MEDS: DILTIAZEM HCL 180 MG CAPSULE.CR PO SCH (09:32)
[2018-04-28] MEDS: METOPROLOL SUCCINATE 50 MG TAB.SR.24H PO SCH (09:32)
[2018-04-28] MEDS: DOCUSATE SODIUM 100 MG CAPSULE PO SCH (09:32)
[2018-04-28] MEDS: GABAPENTIN 300 MG CAPSULE PO SCH (09:33)
[2018-04-28] MEDS: INSULIN GLARGINE,HUM.REC.ANLOG 1,000 UNIT/10 ML UNIT SUBCUT SCH (09:33)
[2018-04-28] MEDS ORDERED: PREDNISONE 20 MG TABLET PO SCH (10:00)
--- NOTE | 2018-04-28 10:49 | PDOC DISCHARGE SUMMARY ---
General - Admit/Disc Date/PCP Admission Date/Primary Care Provider: 04/23/18 10:59 Discharge Date: 04/28/18 - Discharge Diagnosis (1) Acute hypoxemic respiratory failure Is this a current diagnosis for this admission?: Yes (2) Acute on chronic systolic (congestive) heart failure Is this a current diagnosis for this admission?: Yes (3) Leukocytosis Is this a current diagnosis for this admission?: Yes (4) Acute bronchitis Is this a current diagnosis for this admission?: Yes (5) Asthma exacerbation Is this a current diagnosis for this admission?: Yes (6) A-fib Is this a current diagnosis for this admission?: Yes (7) Diabetes mellitus Is this a current diagnosis for this admission?: Yes (8) Morbid obesity with BMI of 45.0-49.9, adult Is this a current diagnosis for this admission?: Yes - Additional Information Resuscitation Status: Full Code Discharge Diet: Cardiac, Diabetic Discharge Activity: Activity As Tolerated, Balance Activity w/Rest, Weigh Daily Home Medications: Albuterol Sulfate [Proair Hfa Inhalation Aerosol 8.5 gm Mdi] 2 puff IH Q4HP PRN 04/21/18 Aspirin [Ecotrin 81 mg EC Tablet] 81 mg PO DAILY 04/21/18 Budesonide/Formoterol Fumarate [Symbicort Hfa 160-4.5 Mcg Inhaler 6 gm] 2 puff IH Q12 04/21/18 Butalb/Acetaminophen/Caffeine [Fioricet (50-325-40 mg) Tablet] 1 tab PO Q6HP PRN 04/21/18 Diltiazem HCl [Cardizem Cd 180 mg Capsule] 1 cap.sr PO Q12 04/21/18 Fluticasone Propionate [Flonase Nasal [place] 50 Mcg/[place] 16 gm] 1 spray NASL DAILY 04/21/18 Gabapentin [Neurontin] 600 mg PO Q12 04/21/18 Glipizide [Glocotrol 10 Mg Tablet] 10 mg PO BIDBS 04/21/18 Hydrochlorothiazide [Hydrodiuril 25 mg Tablet] 25 mg PO QAM 04/21/18 Insulin Glargine,Hum.rec.anlog [Lantus Insulin 100 Unit/1 ml 10 ml] 40 unit SUBCUT Q12 04/21/18 Ipratropium/Albuterol Sulfate [Duoneb 3 ml Ampul] 3 ml NEB RTQ6HP PRN 04/21/18 Lisinopril [Prinivil] 20 mg PO Q12 04/21/18 Metformin HCl [Glucophage 500 mg Tablet] 1,000 mg PO BIDACBS 04/21/18 Metoprolol Succinate [Toprol Xl 50 mg Tab.sr] 50 mg PO Q12 04/21/18 Tiotropium [place] [Spiriva Respimat] 1 puff IH DAILY 04/21/18 History of Present Illness History of Present Illness: DAYTON MENDOZA is a 37 year old female with a limited past medical history secondary to the patient being a poor historian, but known to have asthma, CHF, hypertension, insulin-dependent diabetes, and obesity who presented to the emergency department this morning with a complaint of nonradiating substernal chest pain that worsens with deep breathing, described as pressure, and associated with dyspnea. Pt declines additional aggravating or alleviating factors. She is noted to be lying in a prone position, with even and unlabored breathing upon entering the room. Evaluation in the emergency department revealed tachycardia (HR 107), hypertension (174/105), tachypnea (46), and hypoxia on room air (87%). She is found to have mild leukocytosis (WBCs 11.7), minimally elevated d-dimer, unremarkable chemistry, indeterminately elevated troponins, elevated BNP, EKG demonstrating sinus tachycardia with borderline prolonged QTc interval, and abnormal Q waves to the anterior leads, benign chest x-ray, and CTA of the chest negative for PE but demonstrating a partial left upper lobe and lingular atelectasis. She is referred to the hospitalist service for admission and management of the above stated complaints and findings. Hospital Course Hospital Course: This is 77 years old black female patient presented with chief complaint of chest pressure associated with dyspnea. Her workup is unremarkable except her O2 saturation is 87% and her ABG shows reduced PO2 level. Patient is being managed with bronchodilators, prednisone and antibiotics for acute bronchitis. For her acute on chronic systolic congestive heart failure patient has been treated with Lasix and cardiac protective medications. Her hospital course is complicated by epistaxis which currently has stopped.Patient is anxious and apprehensive since she has been told she has cardiomegaly on chest x-ray. I tried to explain to her that any patient with long-standing congestive heart failure will have enlarged heart. Her echocardiogram which is done in [facility] in March of this year reported as global hypokinesis with ejection fraction 35-40%. This morning Dr. Marshall also reinforced with my explanations at congestive heart failure can cause cardiomegaly and he told her also that she does not have any valvular occlusion. He gave her his contact address for outpatient follow-up. This morning I seen patient resting in bed comfortably she is not in pain or any form of distress. We will check her oxygen level at rest and walking if she qualify for home oxygen therapy. Her vi esther signs are stable and her labs shows leukocytosis which is slightly trending down it is most probably due to steroid use. I will send her home with Lasix, lisinopril and Coreg. Physical Exam Vital Signs: Temp Pulse Resp BP Pulse Ox 97.4 F 78 18 144/85 H 94 04/28/18 08:15 04/28/18 08:30 04/28/18 08:30 04/28/18 08:15 04/28/18 08:30 Intake & Output 04/27/18 04/28/18 04/29/18 06:59 06:59 06:59 Intake Total 2662 1874 Balance 2662 1874 Weight 147.4 kg 145.7 kg General appearance: PRESENT: no acute distress Head exam: PRESENT: atraumatic Eye exam: PRESENT: conjunctiva pink Mouth exam: PRESENT: moist Neck exam: ABSENT: carotid bruit, JVD, lymphadenopathy, thyromegaly Respiratory exam: PRESENT: clear to auscultation russell. ABSENT: rales, rhonchi, wheezes Cardiovascular exam: PRESENT: RRR. ABSENT: diastolic murmur, rubs, systolic murmur GI/Abdominal exam: PRESENT: normal bowel sounds, soft. ABSENT: distended, guarding, mass, organolmegaly, rebound, tenderness Neurological exam: PRESENT: alert, awake, oriented to time, oriented to situation Results Laboratory Results: 04/28/18 06:19 04/26/18 05:37 04/28/18 06:19 WBC 17.2 H RBC 5.33 H Hgb 12.9 Hct 38.4 MCV 72 L MCH 24.2 L MCHC 33.6 RDW 16.4 H Plt Count 212 04/21/18 04/21/18 04/21/18 01:34 01:34 04:47 Troponin I 0.088 0.093 NT-Pro-B Natriuret Pep 987 H 04/21/18 04/21/18 04/22/18 09:53 15:30 05:20 Troponin I 0.052 0.053 NT-Pro-B Natriuret Pep 1620 H 616 H 04/23/18 20:45 Troponin I 0.047 NT-Pro-B Natriuret Pep Impressions: Chest X-Ray 04/21/18 01:35 IMPRESSION: No acute cardiopulmonary process copyright 2010 [employer]- All Rights Reserved Chest/Abdomen CTA 04/21/18 03:06 IMPRESSION: Significantly suboptimal contrast bolus. No convincing evidence for pulmonary embolus. No large or central PE. Partial left upper lobe and lingular atelectasis. Could consider follow-up with bronchoscopy. Fatty infiltrative change to the liver TECHNICAL DOCUMENTATION: Quality ID # 436: Final reports with documentation of one or more dose reduction techniques (e.g., Automated exposure control, adjustment of the mA and/or kV according to patient size, use of iterative reconstruction technique) copyright 2010 [employer]- All Rights Reserved Chest CT 04/25/18 00:00 IMPRESSION: Minimal lingular and basilar atelectasis. No consolidation. Qualifiers - * PATIENT BEING DISCHARGED WITH ANY OF THE FOLLOWING DIAGNOSIS: Heart Failure VTE patient discharged on overlapping Therapy?: No Reason(s) for not prescribing Overlap Therapy:: Not indicated Stroke Pt being discharged on Anti-thrombolytic therapy?: No Reason(s) for not prescribing Anti-thrombolytic therapy:: Not indicated Reason(s) for not prescribing Anti-coagulation therapy:: Not indicated Stroke Pt being discharged on Statins?: No Reason(s) for not prescribing Statins therapy:: Not indicated ME Pt being discharged on Aspirin therapy?: No Reason(s) for not prescribing Aspirin therapy:: Not indicated ME Pt being discharged on Statins?: No Reason(s) for not prescribing Statin therapy:: Not indicated ME Pt discharged ACEI/ARBS?: No Reason(s) for not prescribing ACEI/ARBS:: Not indicated HF Pt being discharged on ACEI for LVEF less than 40%?: Yes HF Pt being discharged on ARBS for LVEF less than 40%?: No Reason(s) for not prescribing ARBS:: Not indicated HF Pt with Afib discharged with Warfarin?: No Reason(s) for not prescribing Warfarin:: Not indicated HF Pt discharged on evidence-based Beta Karin:: Yes
[2018-04-28] MEDS ORDERED: NYSTATIN/DEXAMETH/DIPHEN SUSP 120 ML PO ONE (12:00)
[2018-04-28 17:39] VITALS: BP 129/67
[2018-04-29] MEDS ORDERED: PREDNISONE 10 MG TABLET PO SCH (10:00)
== END 2018-04-28 18:39 | disposition home or self-care (01) | DRG 291 ==
LOC: ER 01:13 → INTOOBSV 04:49 → OBSVTOIN 04:49 → EH 04:49 → 4S 11:20 → OBSVTOIN 04-23 10:59 → 4S 04-28 14:34
PROVIDERS: ADMIT Emergency Medicine; ATTEND Emergency Medicine
PROC: 5A09357 Assistance with Respiratory Ventilation, Less than 24 Consecutive Hours, Continuous Positive Airway Pressure (ICD-10-PCS; principal; 2018-04-23)
DX: I11.0 Hypertensive heart disease with heart failure (principal); J96.21 Acute and chronic respiratory failure with hypoxia; J45.41 Moderate persistent asthma with (acute) exacerbation; Z68.41 Body mass index [BMI] 40.0-44.9, adult; J20.9 Acute bronchitis, unspecified; J44.0 Chronic obstructive pulmonary disease with (acute) lower respiratory infection; I50.33 Acute on chronic diastolic (congestive) heart failure; J44.9 Chronic obstructive pulmonary disease, unspecified; E66.01 Morbid (severe) obesity due to excess calories; G47.33 Obstructive sleep apnea (adult) (pediatric); D72.829 Elevated white blood cell count, unspecified; E78.5 Hyperlipidemia, unspecified; F31.9 Bipolar disorder, unspecified; R74.8 Abnormal levels of other serum enzymes; I48.2 Chronic atrial fibrillation; B95.61 Methicillin susceptible Staphylococcus aureus infection as the cause of diseases classified elsewhere; T38.0X5A Adverse effect of glucocorticoids and synthetic analogues, initial encounter; E11.65 Type 2 diabetes mellitus with hyperglycemia; R04.0 Epistaxis; K21.9 Gastro-esophageal reflux disease without esophagitis; Z87.891 Personal history of nicotine dependence; Z79.4 Long term (current) use of insulin; Z90.49 Acquired absence of other specified parts of digestive tract; Z82.49 Family history of ischemic heart disease and other diseases of the circulatory system; Z83.3 Family history of diabetes mellitus; Z79.82 Long term (current) use of aspirin; Z79.51 Long term (current) use of inhaled steroids; Z88.0 Allergy status to penicillin; Z91.030 Bee allergy status
CPT/HCPCS: 36415; 36600; 71045; 71260; 71275; 80048; 80053; 80061; 82272; 82803; 82962; 83735; 83880; 84443; 84484; 85025; 85027; 85379; 87070; 87077; 87186; 87205; 87804; 93005; 93010; 94640; 94660; 94799; 99285; G0378; J1815; J1885; J1940; J1956; J2060; J2270; J2405; J2930; J3490; J7040; J7512; J7620

== ENCOUNTER 2018-05-30 06:20 | Day surgery (SDC) | payer OTHER ==
[~2018-05-30 06:20] MED LIST changes: -ALBUTEROL SULFATE 0.083% NEB 2.5 MG/3 ML AMPUL NEB ONE; +ASPIRIN 325 MG TABLET PO PRN; +DIAZEPAM 5 MG TABLET PO PRN; +DIPHENHYDRAMINE HCL 25 MG CAPSULE PO PRN; +NORMAL SALINE 1000 ML 1,000 ML IV PRN; +RADIAL COCKTAIL SYRINGE 10 ML IV PRN
[2018-05-30] MEDS ORDERED: HEPARIN SODIUM,PORCINE/NS/PF 2,000 UNIT/1,000 ML RTUINJ IV ONE (07:31)
[2018-05-30] MEDS ORDERED: LIDOCAINE 1% INJ-PF (10 MG/ML) 30 ML SDV ONE (07:31)
[2018-05-30] MEDS ORDERED: MIDAZOLAM 2 MG/2 ML INJ ONE ×2 (07:37→09:16)
[2018-05-30] MEDS ORDERED: FENTANYL CITRATE INJ/PF 100 MCG/2 ML AMPUL ONE ×3 (07:38→10:03)
[2018-05-30] MEDS ORDERED: HEPARIN SOD (PORCINE) 1,000 UNIT/ML 10 ML VIAL ONE (07:38)
--- NOTE | 2018-05-30 10:54 | Operative Report ---
Operative Report DATE OF SURGERY: 05/30/18 PREOPERATIVE DIAGNOSIS: Cardiomyopathy POSTOPERATIVE DIAGNOSIS: Cardiomyopathy OPERATION: left Heart cath ,coronary angiography ,left ventriculography SURGEON: MARTINEZ PETERSON ANESTHESIA: Moderate Sedation COMPLICATIONS: None PROCEDURE: Following informed consent, the patient was premedicated with Diazepam and Benadryl. The right femoral region was prepared in the usual sterile and draped manner and anesthetized with 1% Lidocaine solution. A 6 Pakistani Introducer was placed transcutaneously into the right femoral artery without difficulty. A 6 [place] angled pigtail catheter was used for left heart catheterization and left ventriculography. This was performed in the standard [place] projection. LVEDP was measured prior to and after the ventriculogram. Pull back across the aortic valve was performed with continuous hemodynamic monitoring. The catheter was exchanged to a JL-4 coronary catheter over a 0.035 ``J guidewire, and selective angiography was performed in multiple orthogonal projections. Selective right coronary angiography was performed using a JR-4 catheter. At the conclusion of the procedure, the catheter and sheaths were removed and hemostasis was achieved without difficulty. The patient left the Cardiac Catheterization Lab in stable condition, with intact distal pulses and no chest pain or other complications from the procedure. Conscious sedation was initiated, monitored, and maintained during the procedure with the start time of 912 and a completion time of 1034 for a total procedure t mack of 82 minutes. A total of 3 milligrams of Versed and 250 milligrams and fentanyl were used for conscious sedation. HEMODYNAMIC DATA: Aortic pressure at the beginning of the case is 112/68 left v entricular pressure is 129/20 4 aortic pressure on pullback is 128/44 there is no gradient across the aortic valve CORONARY ANATOMY: [Vessels are of normal caliber and extent without significant calcification] ANGIOGRAPHY: [] VENTRICULOGRAPHY: Ventriculography is performed in the BL[place] projection and demonstrates [dilated left ventricle with preserved wall motion lower limits of normal left ventricular function with no evidence of mitral regurgitation. The ascending aorta is normal] . CORONARY ANGIOGRAPHY: [] LEFT MAIN: [Normal] LEFT ANTERIOR DESCENDING: [Transapical and normal] CIRCUMFLEX CORONARY: [Normal obtuse marginal] RIGHT CORONARY ARTERY: [Normal] IMPRESSION: [Lower limits of normal left ventricular function 2. Normal epicardial coronaries 3. No evidence of valvular heart disease 4. Elevated left ventricular end-diastolic pressure Recommendations: Continued medical therapy and risk factor modification]
[2018-05-30 14:13] VITALS: BP 136/91
--- NOTE | 2018-05-30 15:45 | RADIOLOGY REPORT (SQ) ---
EXAM DESCRIPTION: LEFT HEART CATH COMPLETE COMPLETED DATE/TIME: 05/30/2018 1:54 pm REASON FOR STUDY: CHEST PAIN R07.9 CHEST PAIN, UNSPECIFIED I50.30 UNSPECIFIED DIASTOLIC (CONGESTIV E) HEART FAILURE COMPARISON: None. FLUOROSCOPY TIME: 2.8 minutes Spot and cine images saved to PACS. TECHNIQUE: Intra-operative images acquired during surgical procedure to evaluate progress. NUMBER OF IMAGES: [id number] LIMITATIONS: None. FINDINGS: Fluoroscopy was provided for intraoperative procedure. Please refer to the operative repo rt for further discussion. IMPRESSION: IMAGE(S) OBTAINED DURING PROCEDURE. COMMENT: Quality ID 145: Final reports for procedures using fluoroscopy that document radiation exp osure indices, or exposure time and number of fluorographic images (if radiation exposure indices are not available) Please consult full operative report of the attending physician for description of the procedure. TECHNICAL DOCUMENTATION: JOB ID: [id number] [employer]- All Rights Reserved Reading location - IP/workstation name: [email or web address]
== END 2018-05-30 13:45 | disposition home or self-care (01) ==
LOC: CCL 06:20
PROVIDERS: ATTEND Internal Medicine Cardiovascular Disease
DX: R07.9 Chest pain, unspecified (principal); I11.0 Hypertensive heart disease with heart failure; I50.30 Unspecified diastolic (congestive) heart failure; Z88.0 Allergy status to penicillin; Z79.51 Long term (current) use of inhaled steroids; Z79.82 Long term (current) use of aspirin; Z79.84 Long term (current) use of oral hypoglycemic drugs; J45.909 Unspecified asthma, uncomplicated; Z87.891 Personal history of nicotine dependence; E11.9 Type 2 diabetes mellitus without complications; G47.30 Sleep apnea, unspecified
CPT/HCPCS: 36415; 82962; 84703; 93458; J2250; J3010; J1644 ×2; J3490 ×4

== ENCOUNTER 2018-06-09 14:45 | Emergency (ER) | payer OTHER ==
[2018-06-09] MEDS ORDERED: ASPIRIN 325 MG TABLET PO ONE (18:09)
--- NOTE | 2018-06-09 18:11 | ER Document Report ---
ED Medical Screen (RME) - General Chief Complaint: Chest Pain Stated Complaint: CHEST PAIN Time Seen by Provider: 06/09/18 18:09 Primary Care Provider: WICHO SOLER MD [Primary Care Provider] - Follow up as needed Mode of Arrival: Ambulatory Information source: Patient TRAVEL OUTSIDE OF THE [place] IN LAST 30 DAYS: No - HPI Patient complains to provider of: CP Onset: This morning - pt with onset of SSCP with some SOB and dizziness which has continued. She has not taken ASA today. - Related Data Allergies/Adverse Reactions: amoxicillin [Amoxicillin] Allergy (Severe, Verified 05/30/18 06:38) Anaphylaxis Penicillins Allergy (Severe, Verified 05/30/18 06:38) Anaphylaxis Bees/Wasp Allergy (Severe, Uncoded 05/30/18 06:38) Anaphylaxis Past Medical History - Social History Family history: CAD, DM, Hypertension, Malignancy - Past Medical History Cardiac Medical History: Reports: Hx Atrial Fibrillation, Hx Congestive Heart Failure, Hx Hypercholesterolemia, Hx Hypertension Denies: Hx Coronary Artery Disease, Hx Heart Attack Pulmonary Medical History: Reports: Hx Asthma - SEVERE, Hx Bronchitis, Hx COPD, Hx Pneumonia Neurological Medical History: Denies: Hx Cerebrovascular Accident, Hx Seizures Endocrine Medical History: Reports: Hx Diabetes Mellitus Type 1, Hx Diabetes Mellitus Type 2 Renal/ Medical History: Reports: Hx Kidney Stones. Denies: Hx Peritoneal Dialysis GI Medical History: Denies: Hx Cirrhosis, Hx Crohn's Disease, Hx Hepatitis Musculoskeltal Medical History: Denies Hx Arthritis Psychiatric Medical History: Reports: Hx Anxiety, Hx Bipolar Disorder, Hx Depression Infectious Medical History: Denies: Hx Hepatitis Past Surgical History: Reports: Hx Abdominal Surgery - hernia, Hx Cholecystectomy, Hx Herniorrhaphy, Hx Umbilical Hernia - Immunizations Immunizations up to date: No Hx Diphtheria, Pertussis, Tetanus Vaccination: Yes History of Influenza Vaccine for 12/2016 - 05/2017 Season: Yes Influenza Administration Date for 12/2016 - 05/2017 Season: 11/12/17 Physical Exam - Vital signs Vitals: Temp Pulse Resp BP Pulse Ox 98.5 F 78 18 118/77 97 06/09/18 15:12 06/09/18 15:12 06/09/18 15:12 06/09/18 15:12 06/09/18 15:12 Course - Vital Signs Vital signs: Temp Pulse Resp BP Pulse Ox 98.5 F 78 18 118/77 97 06/09/18 15:12 06/09/18 15:12 06/09/18 15:12 06/09/18 15:12 06/09/18 15:12 Doctor's Discharge - Discharge Referrals: WICHO SOLER MD [Primary Care Provider] - Follow up as needed
--- NOTE | 2018-06-09 19:22 | RADIOLOGY REPORT (SQ) ---
EXAM DESCRIPTION: CHEST 2 VIEWS COMPLETED DATE/TIME: 06/09/2018 6:44 pm REASON FOR STUDY: cp COMPARISON: 04/21/2018 TECHNIQUE: Frontal and lateral radiographic views of the chest acquired. NUMBER OF VIEWS: Two view. LIMITATIONS: None. FINDINGS: LUNGS AND PLEURA: No pneumothorax. No consolidation or pleural effusion. MEDIASTINUM AND HILAR STRUCTURES: Stable. HEART AND VASCULAR STRUCTURES: Stable. BONES: No acute findings. HARDWARE: None in the chest. OTHER: No other significant finding. IMPRESSION: NO ACUTE FINDINGS. TECHNICAL DOCUMENTATION: JOB ID: [id number] [place]-72 2010 [employer]- All Rights Reserved Reading location - IP/workstation name: [email or web address]
[2018-06-09 19:41] LABS: ABSOLUTE EOSINOPHILS # (AUTO) 0.2 10^3/uL (0.0-0.6); ABSOLUTE LYMPHOCYTES (AUTO) 3.3 10^3/uL (0.5-4.7); ABSOLUTE MONOCYTES (AUTO) 0.8 10^3/uL (0.1-1.4); ABSOLUTE NEUT (AUTO) 7.7 10^3/uL (1.7-8.2); BASOPHILS % (AUTO) 0.2 % (0-2); EOSINOPHILS % (AUTO) 1.6 % (0-6); HEMATOCRIT 36.5 % (36.0-47.0); HEMOGLOBIN 12.1 g/dL (12.0-15.5); LYMPHOCYTES % (AUTO) 27.9 % (13-45); MEAN CORPUSCULAR HEMOGLOBIN 24.9 pg (27.0-33.4); MEAN CORPUSCULAR HGB CONC 33.2 g/dL (32.0-36.0); MEAN CORPUSCULAR VOLUME 75 fl (80-97); MONOCYTES % (AUTO) 6.4 % (3-13); PLATELET COUNT 238 10^3/uL (150-450); RED BLOOD COUNT 4.86 10^6/uL (3.72-5.28); RED CELL DISTRIBUTION WIDTH 18.4 % (11.5-14.0); SEGMENTED NEUTROPHILS % (AUTO) 63.9 % (42-78); TOTAL CELLS COUNTED % (AUTO) 100 %
[2018-06-09 19:48] LABS: ALANINE AMINOTRANSFERASE 19 U/L (9-52); ALBUMIN 3.8 g/dL (3.5-5.0); ALKALINE PHOSPHATASE 56 U/L (38-126); ANION GAP 7 (5-19); ASPARTATE AMINO TRANSFERASE 14 U/L (14-36); BILIRUBIN,DIRECT 0.2 mg/dL (0.0-0.4); BILIRUBIN,TOTAL 0.4 mg/dL (0.2-1.3); BLOOD UREA NITROGEN 14 mg/dL (7-20); CALCIUM 9.8 mg/dL (8.4-10.2); CARBON DIOXIDE 28 mmol/L (22-30); CHLORIDE 105 mmol/L (98-107); CREATINE KINASE 106 U/L (30-135); GLUCOSE 92 mg/dL (75-110); POTASSIUM 4.3 mmol/L (3.6-5.0); SODIUM 139.8 mmol/L (137-145); TOTAL PROTEIN 6.4 g/dL (6.3-8.2)
[2018-06-09 20:00] LABS: CREATINE KINASE MB 0.61 ng/mL (<4.55); TROPONIN I 0.017 ng/mL
[2018-06-09 20:15] VITALS: BP 120/75
--- NOTE | 2018-06-09 20:59 | EKG REPORT ---
SEVERITY:- ABNORMAL ECG - SINUS RHYTHM ABNORMAL Q SUGGESTS ANTERIOR INFARCT NONSPECIFIC T ABNORMALITIES, LATERAL LEADS : Confirmed by: Heaven Marshall MD 09-Jun-2018 20:58:20
== END 2018-06-09 20:10 | disposition left against medical advice (07) ==
LOC: ER 14:45
DX: R07.9 Chest pain, unspecified (principal); R06.02 Shortness of breath; R42 Dizziness and giddiness; I10 Essential (primary) hypertension; J44.9 Chronic obstructive pulmonary disease, unspecified; E11.9 Type 2 diabetes mellitus without complications; Z87.892 Personal history of anaphylaxis; Z88.0 Allergy status to penicillin; Z91.030 Bee allergy status; Z53.29 Procedure and treatment not carried out because of patient's decision for other reasons
CPT/HCPCS: 36415; 71046; 80053; 82550; 82553; 84484; 85025; 93005; 93010; 99285

== ENCOUNTER 2018-06-23 19:58 | Emergency (ER) | payer OTHER ==
[2018-06-23] MEDS ORDERED: ACETAMINOPHEN 325 MG TABLET PO ONE (21:12)
--- NOTE | 2018-06-23 21:16 | ER Document Report ---
ED Medical Screen (RME) - General Chief Complaint: Chest Pain Stated Complaint: CHEST PAIN Time Seen by Provider: 06/23/18 21:04 Primary Care Provider: WICHO SOLER MD [Primary Care Provider] - Follow up as needed Notes: 37-year-old female with medical history including cardiomyopathy, CHF, atrial fibrillation, on chronic home oxygen chief complaints of headache, pain in her neck, sharp pain in the middle of her chest, and shortness of breath. Chest and respiratory symptoms started today, headache started 3 days ago. Reports nausea with the headache. States she thinks she had a fever at home but is unsure. States her legs were swelling yesterday but this resolved with elevation. TRAVEL OUTSIDE OF THE [place] IN LAST 30 DAYS: No - Related Data Allergies/Adverse Reactions: amoxicillin [Amoxicillin] Allergy (Severe, Verified 05/30/18 06:38) Anaphylaxis Penicillins Allergy (Severe, Verified 05/30/18 06:38) Anaphylaxis Bees/Wasp Allergy (Severe, Uncoded 05/30/18 06:38) Anaphylaxis Past Medical History - Social History Family history: CAD, DM, Hypertension, Malignancy - Past Medical History Cardiac Medical History: Reports: Hx Atrial Fibrillation, Hx Congestive Heart Failure, Hx Hypercholesterolemia, Hx Hypertension Denies: Hx Coronary Artery Disease, Hx Heart Attack Pulmonary Medical History: Reports: Hx Asthma - SEVERE, Hx Bronchitis, Hx COPD, Hx Pneumonia Neurological Medical History: Denies: Hx Cerebrovascular Accident, Hx Seizures Endocrine Medical History: Reports: Hx Diabetes Mellitus Type 1, Hx Diabetes Mellitus Type 2 Renal/ Medical History: Reports: Hx Kidney Stones. Denies: Hx Peritoneal Dialysis GI Medical History: Denies: Hx Cirrhosis, Hx Crohn's Disease, Hx Hepatitis Musculoskeltal Medical History: Denies Hx Arthritis Psychiatric Medical History: Reports: Hx Anxiety, Hx Bipolar Disorder, Hx Depression Infectious Medical History: Denies: Hx Hepatitis Past Surgical History: Reports: Hx Abdominal Surgery - hernia, Hx Cholecystectomy, Hx Herniorrhaphy, Hx Umbilical Hernia - Immunizations Immunizations up to date: No Hx Diphtheria, Pertussis, Tetanus Vaccination: Yes History of Influenza Vaccine for 12/2016 - 05/2017 Season: Yes Influenza Administration Date for 12/2016 - 05/2017 Season: 11/12/17 Physical Exam - Vital signs Vitals: Temp Pulse Resp BP Pulse Ox 98.3 F 85 20 135/77 H 98 06/23/18 20:11 06/23/18 20:11 06/23/18 20:11 06/23/18 20:11 06/23/18 20:11 - Respiratory Respiratory status: No respiratory distress. No: Respiratory distress Breath sounds: Normal. No: Decreased air movement, Wheezing - Cardiovascular Rhythm: Regular. No: Tachycardia Heart sounds: Normal auscultation, S1 appreciated, S2 appreciated Course - Re-evaluation Re-evalutation: Patient given Zofran by EMS, also given Tylenol now because patient reports equal complaints of headache and chest pain. I have greeted and performed a rapid initial assessment of this patient. A comprehensive ED assessment and evaluation of the patient, analysis of test results and completion of the medical decision making process will be conducted by additional ED providers. - Vital Signs Vital signs: Temp Pulse Resp BP Pulse Ox 98.3 F 85 20 135/77 H 98 06/23/18 20:11 06/23/18 20:11 06/23/18 20:11 06/23/18 20:11 06/23/18 20:11 Doctor's Discharge - Discharge Referrals: WICHO SOLER MD [Primary Care Provider] - Follow up as needed
[2018-06-23 21:39] LABS: ABSOLUTE EOSINOPHILS # (AUTO) 0.3 10^3/uL (0.0-0.6); ABSOLUTE LYMPHOCYTES (AUTO) 2.8 10^3/uL (0.5-4.7); ABSOLUTE MONOCYTES (AUTO) 0.7 10^3/uL (0.1-1.4); ABSOLUTE NEUT (AUTO) 9.2 10^3/uL (1.7-8.2); BASOPHILS % (AUTO) 0.3 % (0-2); HEMATOCRIT 34.4 % (36.0-47.0); HEMOGLOBIN 11.5 g/dL (12.0-15.5); LYMPHOCYTES % (AUTO) 21.4 % (13-45); MEAN CORPUSCULAR HEMOGLOBIN 25.4 pg (27.0-33.4); MEAN CORPUSCULAR HGB CONC 33.4 g/dL (32.0-36.0); MEAN CORPUSCULAR VOLUME 76 fl (80-97); MONOCYTES % (AUTO) 5.7 % (3-13); PLATELET COUNT 262 10^3/uL (150-450); RED BLOOD COUNT 4.52 10^6/uL (3.72-5.28); RED CELL DISTRIBUTION WIDTH 18.3 % (11.5-14.0); SEGMENTED NEUTROPHILS % (AUTO) 70.6 % (42-78); TOTAL CELLS COUNTED % (AUTO) 100 %
[2018-06-23 21:50] LABS: ALANINE AMINOTRANSFERASE 33 U/L (9-52); ALBUMIN 3.7 g/dL (3.5-5.0); ALKALINE PHOSPHATASE 51 U/L (38-126); ANION GAP 9 (5-19); ASPARTATE AMINO TRANSFERASE 16 U/L (14-36); BILIRUBIN,DIRECT 0.3 mg/dL (0.0-0.4); BILIRUBIN,TOTAL 0.3 mg/dL (0.2-1.3); BLOOD UREA NITROGEN 16 mg/dL (7-20); CALCIUM 9.3 mg/dL (8.4-10.2); CARBON DIOXIDE 28 mmol/L (22-30); CHLORIDE 101 mmol/L (98-107); GLUCOSE 165 mg/dL (75-110); POTASSIUM 4.2 mmol/L (3.6-5.0); SODIUM 137.5 mmol/L (137-145); TOTAL PROTEIN 6.4 g/dL (6.3-8.2)
--- NOTE | 2018-06-23 21:54 | RADIOLOGY REPORT (SQ) ---
EXAM DESCRIPTION: XR CHEST 1 VIEW COMPLETED DATE/TME: 06/23/2018 21:12 CLINICAL HISTORY: 37 years, Female, chest pain, shortness of breath COMPARISON: Multiple priors, most recent from 06/09/2018 NUMBER OF VIEWS: One TECHNIQUE: Single frontal view of the chest was obtained LIMITATIONS: None. FINDINGS: Cardiac and mediastinal contours are normal in appearance. Lungs are clear. No pleural effusion or pneumothorax. External heart monitor device projects over the left hemithorax. IMPRESSION: No acute disease. copyright 2010 [employer]- All Rights Reserved
[2018-06-23 22:03] LABS: TROPONIN I 0.021 ng/mL
[2018-06-24] MEDS ORDERED: KETOROLAC TROMETHAMINE INJ/PF 30 MG/1 ML SDV IV ONE (01:56)
[2018-06-24] MEDS ORDERED: METOCLOPRAMIDE HCL INJ/PF 10 MG/2 ML SDV IV ONE (01:56)
--- NOTE | 2018-06-24 01:58 | ER Document Report ---
ED General - General Chief Complaint: Chest Pain Stated Complaint: CHEST PAIN Time Seen by Provider: 06/23/18 21:04 Primary Care Provider: WICHO SOLER MD [DUSTIN KUMAR] - Follow up as needed Notes: Patient is a 37-year-old female with medical history including cardiomyopathy, CHF, atrial fibrillation, on chronic home oxygen chief complaints of headache, pain in her neck, sharp pain in the middle of her chest, and shortness of breath. Chest and respiratory symptoms started today, headache started 3 days ago. Reports nausea with the headache. No recorded fever at home. Describes the headache as being gradual in onset, reached maximal intensity today just prior to coming to the emergency department. It is a global, throbbing, constant headache. She regards it as being severe. Has a history of headaches although not usually to this degree of intensity. Denies any associated confusion, focal weakness or numbness. She states that the chest pain started only today and feels like it is radiating down from her head into her neck and then to the chest. It is a stabbing, cramping, mild pain worsened by movement of the arms or pressing on the chest. Denies associated shortness of breath. Has not seen her primary doctor regarding her symptoms today. TRAVEL OUTSIDE OF THE [place] IN LAST 30 DAYS: No - Related Data Allergies/Adverse Reactions: amoxicillin [Amoxicillin] Allergy (Severe, Verified 05/30/18 06:38) Anaphylaxis Penicillins Allergy (Severe, Verified 05/30/18 06:38) Anaphylaxis Bees/Wasp Allergy (Severe, Uncoded 05/30/18 06:38) Anaphylaxis Past Medical History - General Information source: Patient - Social History Smoking Status: Former Smoker Frequency of alcohol use: None Drug Abuse: None Lives with: Family Family History: Reviewed & Not Pertinent, CAD, DM, Hypertension, Malignancy Patient has suicidal ideation: No Patient has homicidal ideation: No - Past Medical History Cardiac Medical History: Reports: Hx Atrial Fibrillation, Hx Congestive Heart Failure, Hx Hypercholesterolemia, Hx Hypertension Denies: Hx Coronary Artery Disease, Hx Heart Attack Pulmonary Medical History: Reports: Hx Asthma - SEVERE, Hx Bronchitis, Hx COPD, Hx Pneumonia Neurological Medical History: Denies: Hx Cerebrovascular Accident, Hx Seizures Endocrine Medical History: Reports: Hx Diabetes Mellitus Type 1, Hx Diabetes Mellitus Type 2 Renal/ Medical History: Reports: Hx Kidney Stones. Denies: Hx Peritoneal Dialysis GI Medical History: Denies: Hx Cirrhosis, Hx Crohn's Disease, Hx Hepatitis Musculoskeletal Medical History: Denies Hx Arthritis Psychiatric Medical History: Reports: Hx Anxiety, Hx Bipolar Disorder, Hx Depression Infectious Medical History: Denies: Hx Hepatitis Past Surgical History: Reports: Hx Abdominal Surgery - hernia, Hx Cholecystectomy, Hx Herniorrhaphy, Hx Umbilical Hernia - Immunizations Immunizations up to date: No Hx Diphtheria, Pertussis, Tetanus Vaccination: Yes Hx Pneumococcal Vaccination: 11/12/17 Review of Systems - Review of Systems Notes: Constitutional: Negative for fever. HENT: Negative for sore throat. Eyes: Negative for visual changes. Cardiovascular: Positive for chest pain. Respiratory: Negative for shortness of breath. Gastrointestinal: Negative for abdominal pain, vomiting or diarrhea. Genitourinary: Negative for dysuria. Musculoskeletal: Negative for back pain. Skin: Negative for rash. Neurological: Positive for headache 10 point ROS negative except as marked above and in HPI. Physical Exam - Vital signs Vitals: Temp Pulse Resp BP Pulse Ox 98.3 F 85 20 135/77 H 98 06/23/18 20:11 06/23/18 20:11 06/23/18 20:11 06/23/18 20:11 06/23/18 20:11 Interpretation: Normal Notes: PHYSICAL EXAMINATION: GENERAL: Morbidly obese female, lying in bed well-appearing, well-nourished and in no acute distress. HEAD: Atraumatic, normocephalic. EYES: Pupils equal round and reactive to light, extraocular movements intact, sclera anicteric, conjunctiva are normal. ENT: nares patent, oropharynx clear without exudates. Moist mucous membranes. NECK: Normal range of motion, supple without lymphadenopathy LUNGS: Breath sounds clear to auscultation bilaterally and equal. No wheezes rales or rhonchi. HEART: Regular rate and rhythm without murmurs ABDOMEN: Soft, nontender, normoactive bowel sounds. No guarding, no rebound. No masses appreciated. EXTREMITIES: Normal range of motion, no pitting or edema. No cyanosis. NEUROLOGICAL: Face symmetric. Tongue protrudes midline. Extraocular motions intact. Pupils are 2 mm and equally reactive. Normal speech. 5 out of 5 strength in both the distal and proximal upper and lower extremities bilaterally. Sensation is grossly intact throughout. Finger to nose testing normal. Pronator drift normal. PSYCH: Moderately anxious SKIN: Warm, Dry, normal turgor, no rashes or lesions noted. Course - Re-evaluation Re-evalutation: 06/24/18 01:56 Patient presents with a primary complaint of headache that started 3 days ago and has gotten progressively worse over that period of time. Presentation of a headache that appears to be most consistent with tension versus migrainous type headache. Headache was not maximal in onset, patient has no focal neurologic deficits, no nuchal rigidity, vital signs within normal limits, no papilledema, and patient is overall well in appearance. Based on clinical history and examination I do not suspect an acute subarachnoid hemorrhage, dural venous sinus thrombosis, acute meningitis, or intercranial mass. Given my low clinical suspicion for any acute life-threatening etiology, I do not feel advanced neuro imaging is indicated. Patient states that the pain from her head did radiate down her neck and then into her chest. Given her history of congestive heart failure a cardiac evaluation was subsequently undertaken. 2- troponins, normal chest x-ray, EKG without ischemic changes. Low clinical suspicion for cardiac etiology of her presentation today. She is PERC criteria negative at time of my assessment. Patient had complete relief of her headache after receiving a migraine cocktail. Feels symptomatically much improved. At this time will discharge with return precautions and follow-up recommendations. Verbal discharge instructions given a the bedside and opportunity for questions given. Medication warnings reviewed. Patient is in agreement with this plan and has verbalized understanding of return precautions and the need for primary care follow-up in the next 24-72 hours. 06/24/18 03:59 - Vital Signs Vital signs: Temp Pulse Resp BP Pulse Ox 98.3 F 85 18 119/84 98 06/23/18 20:11 06/23/18 20:11 06/24/18 03:02 06/24/18 03:02 06/24/18 03:02 - Laboratory Result Diagrams: 06/23/18 21:22 06/23/18 21:22 Laboratory results interpreted by me: 06/23/18 06/23/18 06/23/18 21:22 21:22 21:22 WBC 13.0 H Hgb 11.5 L Hct 34.4 L MCV 76 L MCH 25.4 L RDW 18.3 H Absolute Neutrophils 9.2 H Glucose 165 H NT-Pro-B Natriuret Pep 298 H - Diagnostic Test Radiology reviewed: Image reviewed, Reports reviewed Radiology results interpreted by me: 06/24/18 01:58 Chest x-ray: No acute infiltrate or pneumothorax - EKG Interpretation by Me Additional EKG results interpreted by me: 06/24/18 01:59 Sinus rhythm, rate 77. No ST elevations or depressions. QTC is 431. Discharge - Discharge Clinical Impression: Morbid obesity, Chest discomfort Acute headache Qualifiers: Headache type: unspecified Intractability: not intractable Qualified Code(s): R51 - Headache Condition: Stable Disposition: HOME, SELF-CARE Additional Instructions: You have been seen in the Emergency Department (ED) for a headache. Please use Tylenol (acetaminophen) or Motrin (ibuprofen) as needed for symptoms, but only as written on the box. As we have discussed, please follow up with your primary care doctor as soon as possible regarding today's ED visit and your headache symptoms. Call your doctor or return to the ED if you have a worsening headache, sudden and severe headache, confusion, slurred speech, facial droop, weakness or numbness in any arm or leg, extreme fatigue, or other symptoms that concern you. You were seen today for chest pain. The exact cause of your pain is unclear. However, based on your cardiac enzyme testing, chest x-ray, and EKG it does not appear that it is from an immediately life-threatening cause at this time. Although your testing here is normal is critical that you follow-up with your primary care physician for continued evaluation of this chest pain. Please return to emergency department immediately if you have worsening of your chest pain, shortness of breath, vomiting, become unable to exert yourself due to pain or difficulty breathing, you pass out, or have any pain that radiates into your arms, jaw, or back. Please also return if you have any additional symptoms that are concerning to you. Referrals: WICHO SOLER MD [DUSTIN KUMAR] - Follow up as needed
[2018-06-24] MEDS ORDERED: HALOPERIDOL LACTATE INJ 5 MG/1 ML VIAL IV ONE (02:39)
[2018-06-24 03:19] VITALS: BP 119/84
--- NOTE | 2018-06-24 13:11 | EKG REPORT ---
SEVERITY:- ABNORMAL ECG - SINUS RHYTHM ABNORMAL Q SUGGESTS ANTERIOR INFARCT NONSPECIFIC T ABNORMALITIES, LATERAL LEADS : Confirmed by: Tan Mobley 24-Jun-2018 13:10:11
== END 2018-06-24 03:18 | disposition home or self-care (01) ==
LOC: ER 19:58
DX: R51 Headache (principal); R07.9 Chest pain, unspecified; E66.01 Morbid (severe) obesity due to excess calories; I48.91 Unspecified atrial fibrillation; I50.9 Heart failure, unspecified; I11.0 Hypertensive heart disease with heart failure; E11.9 Type 2 diabetes mellitus without complications; Z90.49 Acquired absence of other specified parts of digestive tract; Z88.0 Allergy status to penicillin; Z87.442 Personal history of urinary calculi
CPT/HCPCS: 93005; 99285; 96374; 96375; 36415; 84703; 85025; 80053; 84484; 83880; 71045; 93010; J1630; J1885; J2765

== ENCOUNTER 2018-06-25 17:01 | Emergency (ER) | payer OTHER ==
[2018-06-25] MEDS ORDERED: ASPIRIN 81 MG TABLET, CHEWABLE PO ONE (17:05)
--- NOTE | 2018-06-25 17:31 | RADIOLOGY REPORT (SQ) ---
EXAM DESCRIPTION: CHEST SINGLE VIEW COMPLETED DATE/TIME: 06/25/2018 5:24 pm REASON FOR STUDY: cp COMPARISON: 06/23/2018 EXAM PARAMETERS: NUMBER OF VIEWS: One view. TECHNIQUE: Single frontal radiographic view of the chest acquired. RADIATION DOSE: NA LIMITATIONS: None. FINDINGS: LUNGS AND PLEURA: No opacities, masses or pneumothorax. No pleural effusion. MEDIASTINUM AND HILAR STRUCTURES: No masses. Contour normal. HEART AND VASCULAR STRUCTURES: Heart normal in size. Normal vasculature. BONES: No acute findings. HARDWARE: None in the chest. OTHER: No other significant finding. IMPRESSION: NO ACUTE RADIOGRAPHIC FINDING IN THE CHEST. TECHNICAL DOCUMENTATION: JOB ID: [id number] [employer]- All Rights Reserved Reading location - IP/workstation name: [email or web address]
[2018-06-25] MEDS ORDERED: MORPHINE SULFATE 10 MG/ML INJ IV ONE (17:35)
[2018-06-25] MEDS ORDERED: ONDANSETRON HCL INJ/PF 4 MG/2 ML SDV IV ONE (17:35)
[2018-06-25 18:06] LABS: ABSOLUTE EOSINOPHILS # (AUTO) 0.2 10^3/uL (0.0-0.6); ABSOLUTE LYMPHOCYTES (AUTO) 2.3 10^3/uL (0.5-4.7); ABSOLUTE MONOCYTES (AUTO) 0.8 10^3/uL (0.1-1.4); ABSOLUTE NEUT (AUTO) 8.1 10^3/uL (1.7-8.2); BASOPHILS % (AUTO) 0.3 % (0-2); EOSINOPHILS % (AUTO) 1.4 % (0-6); HEMATOCRIT 35.3 % (36.0-47.0); HEMOGLOBIN 11.7 g/dL (12.0-15.5); LYMPHOCYTES % (AUTO) 20.4 % (13-45); MEAN CORPUSCULAR HGB CONC 33.1 g/dL (32.0-36.0); MEAN CORPUSCULAR VOLUME 76 fl (80-97); PLATELET COUNT 263 10^3/uL (150-450); RED BLOOD COUNT 4.67 10^6/uL (3.72-5.28); RED CELL DISTRIBUTION WIDTH 17.8 % (11.5-14.0); SEGMENTED NEUTROPHILS % (AUTO) 70.9 % (42-78); TOTAL CELLS COUNTED % (AUTO) 100 %; WHITE BLOOD COUNT 11.4 10^3/uL (4.0-10.5)
[2018-06-25 18:22] LABS: ALANINE AMINOTRANSFERASE 36 U/L (9-52); ALBUMIN 3.6 g/dL (3.5-5.0); ALKALINE PHOSPHATASE 49 U/L (38-126); ANION GAP 7 (5-19); ASPARTATE AMINO TRANSFERASE 16 U/L (14-36); BILIRUBIN,DIRECT 0.3 mg/dL (0.0-0.4); BILIRUBIN,TOTAL 0.3 mg/dL (0.2-1.3); BLOOD UREA NITROGEN 16 mg/dL (7-20); CARBON DIOXIDE 26 mmol/L (22-30); CHLORIDE 105 mmol/L (98-107); CREATINE KINASE 159 U/L (30-135); GLUCOSE 119 mg/dL (75-110); POTASSIUM 4.3 mmol/L (3.6-5.0); SODIUM 138.3 mmol/L (137-145); TOTAL PROTEIN 6.4 g/dL (6.3-8.2)
[2018-06-25 18:33] LABS: CREATINE KINASE MB 0.84 ng/mL (<4.55); TROPONIN I 0.02 ng/mL
[2018-06-25] MEDS ORDERED: CYCLOBENZAPRINE HCL 10 MG TABLET PO ONE (19:15)
--- NOTE | 2018-06-25 20:01 | ER Document Report ---
ED General - General Chief Complaint: Chest Pain Stated Complaint: CHEST PAIN Time Seen by Provider: 06/25/18 17:08 Primary Care Provider: HAYDEE ADAM MD [Primary Care Provider] - Follow up as needed TRAVEL OUTSIDE OF THE [place] IN LAST 30 DAYS: No - HPI Notes: Patient is a 37-year-old female who presents to the emergency department for evaluation of substernal chest pain with radiation to the left side of the neck. She was actually seen here on Tuesday for the same complaint. She states at that point it is been present for several days. She was treated with medicines "but they were just a Band-Aid." Shortly after waking this morning her pain returned. She denies any associated shortness of breath, states she has been somewhat nauseated, no diaphoresis or near syncope. The pain is reproducible. Patient does have an extensive history, including dilated cardiomyopathy. Of note, however, she did have a negative stress test as well as a heart catheterization last month. No interventions were necessary. - Related Data Allergies/Adverse Reactions: amoxicillin [Amoxicillin] Allergy (Severe, Verified 05/30/18 06:38) Anaphylaxis Penicillins Allergy (Severe, Verified 05/30/18 06:38) Anaphylaxis Bees/Wasp Allergy (Severe, Uncoded 05/30/18 06:38) Anaphylaxis Past Medical History - General Information source: Patient - Social History Smoking Status: Former Smoker Frequency of alcohol use: Occasional Family History: Reviewed & Not Pertinent, CAD, DM, Hypertension, Malignancy Patient has suicidal ideation: No Patient has homicidal ideation: No - Past Medical History Cardiac Medical History: Reports: Hx Atrial Fibrillation, Hx Congestive Heart Failure, Hx Hypercholesterolemia, Hx Hypertension Denies: Hx Coronary Artery Disease, Hx Heart Attack Pulmonary Medical History: Reports: Hx Asthma - SEVERE, Hx Bronchitis, Hx COPD, Hx Pneumonia Neurological Medical History: Denies: Hx Cerebrovascular Accident, Hx Seizures Endocrine Medical History: Reports: Hx Diabetes Mellitus Type 1, Hx Diabetes Mellitus Type 2 Renal/ Medical History: Reports: Hx Kidney Stones. Denies: Hx Peritoneal Dialysis GI Medical History: Denies: Hx Cirrhosis, Hx Crohn's Disease, Hx Hepatitis Musculoskeletal Medical History: Denies Hx Arthritis Psychiatric Medical History: Reports: Hx Anxiety, Hx Bipolar Disorder, Hx Depression Infectious Medical History: Denies: Hx Hepatitis Past Surgical History: Reports: Hx Abdominal Surgery - hernia, Hx Cholecystectom y, Hx Herniorrhaphy, Hx Umbilical Hernia - Immunizations Immunizations up to date: No Hx Diphtheria, Pertussis, Tetanus Vaccination: Yes Hx Pneumococcal Vaccination: 11/12/17 Review of Systems - Review of Systems Constitutional: No symptoms reported EENT: No symptoms reported Cardiovascular: See HPI Respiratory: No symptoms reported Gastrointestinal: No symptoms reported Genitourinary: No symptoms reported Musculoskeletal: No symptoms reported Skin: No symptoms reported Neurological/Psychological: No symptoms reported Physical Exam - Vital signs Vitals: Pulse Ox 97 06/25/18 17:05 - Notes Notes: Vital signs reviewed, please refer to chart. Patient is normocephalic, atraumatic. Pupils equal round, reactive to light. Neck is supple without meningismus. Heart is regular rate and rhythm. Chest wall is markedly tender to palpation, which worsens with palpation of the left sternocleidomastoid muscle. She is also mildly tender in the left trapezius. Lungs are clear to auscultation bilaterally. Abdomen is soft, nontender, normoactive bowel sounds throughout. Extremities without cyanosis, clubbing, edema. No posterior calf tenderness. Peripheral pulses are equal. Skin is warm and dry. Patient is awake, alert, neurological exam is nonfocal. Course - Re-evaluation Re-evalutation: 06/25/18 20:00 Patient presents to the emergency department for evaluation of chest pain. It is reproducible. She has had extensive cardiac workup within the last 6 weeks. She had a negative heart catheterization. Her laboratory investigations an E KG, as well as imaging were all found to be in room unremarkable here. She was given morphine with little change in her pain. I will go ahead and treat her with a muscle relaxer. At this point she is to follow-up with primary care, return to the emergency department with worsening or new concerning symptoms of any sort. - Vital Signs Vital signs: Temp Pulse Resp BP Pulse Ox 98.3 F 85 0 L 131/87 H 98 06/25/18 17:13 06/25/18 17:13 06/25/18 18:01 06/25/18 18:01 06/25/18 18:01 - Laboratory Result Diagrams: 06/25/18 17:40 06/25/18 17:40 Laboratory results interpreted by me: 06/25/18 06/25/18 06/25/18 17:40 17:40 17:40 WBC 11.4 H Hgb 11.7 L Hct 35.3 L MCV 76 L MCH 25.0 L RDW 17.8 H Glucose 119 H Creatine Kinase 159 H NT-Pro-B Natriuret Pep 661 H - Diagnostic Test Radiology reviewed: Reports reviewed - No acute cardiopulmonary disease - EKG Interpretation by Me Additional EKG results interpreted by me: 06/25/18 20:00 Sinus mechanism with a rate of 85 bpm. Normal axis and intervals. No acute ST changes concerning for ischemia or infarction. This is compared to prior study performed 2 days ago and was found to be unchanged. Discharge - Discharge Clinical Impression: Chest wall pain Condition: Stable Disposition: HOME, SELF-CARE Instructions: Chest Wall Pain ([facility]) Additional Instructions: Moist heat to the painful area. Take medication as prescribed, watch for dizziness and drowsiness with this medicine. Follow-up with your primary care physician this week. Return to the emergency department with worsening or new concerning symptoms. Referrals: HAYDEE ADAM MD [Primary Care Provider] - Follow up as needed
[2018-06-25 21:06] VITALS: BP 135/84
--- NOTE | 2018-06-25 23:40 | EKG REPORT ---
SEVERITY:- ABNORMAL ECG - SINUS RHYTHM ABNORMAL Q SUGGESTS ANTERIOR INFARCT BORDERLINE T WAVE ABNORMALITIES : Confirmed by: Tan Mobley 25-Jun-2018 23:40:11
== END 2018-06-25 21:11 | disposition home or self-care (01) ==
LOC: ER 17:01
DX: R07.89 Other chest pain (principal); M54.2 Cervicalgia; R11.0 Nausea; I10 Essential (primary) hypertension; J44.9 Chronic obstructive pulmonary disease, unspecified; E11.9 Type 2 diabetes mellitus without complications; Z87.01 Personal history of pneumonia (recurrent); Z86.79 Personal history of other diseases of the circulatory system; Z87.892 Personal history of anaphylaxis; Z88.0 Allergy status to penicillin; Z91.030 Bee allergy status
CPT/HCPCS: 93005; 99285; 36415; 82553; 82550; 85025; 80053; 84484; 83880; 71045; 93010; J2270; J2405

== ENCOUNTER 2018-06-29 11:28 | Emergency (ER) | payer OTHER ==
--- NOTE | 2018-06-29 12:17 | ER Document Report ---
ED Medical Screen (RME) - General Chief Complaint: Shortness Of Breath Stated Complaint: NECK PAIN Time Seen by Provider: 06/29/18 12:13 Primary Care Provider: HAYDEE ADAM MD [Primary Care Provider] - Follow up as needed Mode of Arrival: Wheelchair Information source: Patient Notes: 37-year-old female presented to ED for complaint of severe left neck pain. She states she started last week she went to the doctor and they told her she had enlarged lymph nodes on the left side of her neck. She does have multiple dental cavities but patient states that the nodes have been killed to those and they are not painful at the dentist told that they could not be infected. She states that the pain had been there and last night she put ice pack applied and the pain increased dramatically. He states it is very painful to turn her head due to the pain and swelling in the left side of her neck. There is mild swelling to the left side of her neck and there are some enlarged lymph nodes to the left side. Patient is alert oriented respirations regular and unlabored. She does have a history of CHF asthma diabetes type 2 insulin-dependent high blood pressure cardiomyopathy and peripheral neuropathy. She had her gallbladder out and her hernia surgery. She states she does not smoke and she drinks about 2 times a year. I have greeted and performed a rapid initial assessment of this patient. A comprehensive ED assessment and evaluation of the patient, analysis of test results and completion of medical decision making process will be conducted by an additional ED providers. TRAVEL OUTSIDE OF THE [place] IN LAST 30 DAYS: No - Related Data Allergies/Adverse Reactions: amoxicillin [Amoxicillin] Allergy (Severe, Verified 06/29/18 11:30) Anaphylaxis Penicillins Allergy (Severe, Verified 06/29/18 11:30) Anaphylaxis Bees/Wasp Allergy (Severe, Uncoded 06/29/18 11:30) Anaphylaxis Past Medical History - Social History Chew tobacco use (# tins/day): No Frequency of alcohol use: Rare Drug Abuse: None Family history: CAD, DM, Hypertension, Malignancy - Past Medical History Cardiac Medical History: Reports: Hx Atrial Fibrillation, Hx Congestive Heart Failure, Hx Hypercholesterolemia, Hx Hypertension Denies: Hx Coronary Artery Disease, Hx Heart Attack Pulmonary Medical History: Reports: Hx Asthma - SEVERE, Hx Bronchitis, Hx COPD, Hx Pneumonia Neurological Medical History: Denies: Hx Cerebrovascular Accident, Hx Seizures Endocrine Medical History: Reports: Hx Diabetes Mellitus Type 1, Hx Diabetes Mellitus Type 2 Renal/ Medical History: Reports: Hx Kidney Stones. Denies: Hx Peritoneal Dialysis GI Medical History: Denies: Hx Cirrhosis, Hx Crohn's Disease, Hx Hepatitis Musculoskeltal Medical History: Denies Hx Arthritis Psychiatric Medical History: Reports: Hx Anxiety, Hx Bipolar Disorder, Hx Depression Infectious Medical History: Denies: Hx Hepatitis Past Surgical History: Reports: Hx Abdominal Surgery - hernia, Hx Cholecystectomy, Hx Herniorrhaphy, Hx Umbilical Hernia - Immunizations Immunizations up to date: No Hx Diphtheria, Pertussis, Tetanus Vaccination: Yes History of Influenza Vaccine for 12/2016 - 05/2017 Season: Yes Influenza Administration Date for 12/2016 - 05/2017 Season: 11/12/17 Physical Exam - Vital signs Vitals: Temp Pulse Resp BP Pulse Ox 98.1 F 91 40 H 107/74 98 06/29/18 11:34 06/29/18 11:34 06/29/18 11:34 06/29/18 11:34 06/29/18 11:34 Course - Vital Signs Vital signs: Temp Pulse Resp BP Pulse Ox 98.1 F 91 40 H 107/74 98 06/29/18 11:34 06/29/18 11:34 06/29/18 11:34 06/29/18 11:34 06/29/18 11:34 Doctor's Discharge - Discharge Referrals: HAYDEE ADAM MD [Primary Care Provider] - Follow up as needed
[2018-06-29 12:56] LABS: ABSOLUTE BASOPHILS # (AUTO) 0.1 10^3/uL (0.0-0.2); ABSOLUTE EOSINOPHILS # (AUTO) 0.2 10^3/uL (0.0-0.6); ABSOLUTE LYMPHOCYTES (AUTO) 2.2 10^3/uL (0.5-4.7); ABSOLUTE MONOCYTES (AUTO) 0.5 10^3/uL (0.1-1.4); ABSOLUTE NEUT (AUTO) 8.1 10^3/uL (1.7-8.2); BASOPHILS % (AUTO) 0.5 % (0-2); EOSINOPHILS % (AUTO) 1.8 % (0-6); HEMATOCRIT 38.2 % (36.0-47.0); HEMOGLOBIN 12.6 g/dL (12.0-15.5); LYMPHOCYTES % (AUTO) 19.6 % (13-45); MEAN CORPUSCULAR HEMOGLOBIN 25.1 pg (27.0-33.4); MEAN CORPUSCULAR VOLUME 76 fl (80-97); MONOCYTES % (AUTO) 4.7 % (3-13); PLATELET COUNT 296 10^3/uL (150-450); RED BLOOD COUNT 5.02 10^6/uL (3.72-5.28); RED CELL DISTRIBUTION WIDTH 17.9 % (11.5-14.0); SEGMENTED NEUTROPHILS % (AUTO) 73.4 % (42-78); TOTAL CELLS COUNTED % (AUTO) 100 %
[2018-06-29 13:13] LABS: ALANINE AMINOTRANSFERASE 31 U/L (9-52); ALBUMIN 3.7 g/dL (3.5-5.0); ALKALINE PHOSPHATASE 49 U/L (38-126); ANION GAP 9 (5-19); ASPARTATE AMINO TRANSFERASE 18 U/L (14-36); BILIRUBIN,DIRECT 0.3 mg/dL (0.0-0.4); BILIRUBIN,TOTAL 0.3 mg/dL (0.2-1.3); BLOOD UREA NITROGEN 15 mg/dL (7-20); CALCIUM 9.2 mg/dL (8.4-10.2); CARBON DIOXIDE 27 mmol/L (22-30); CHLORIDE 101 mmol/L (98-107); GLUCOSE 246 mg/dL (75-110); POTASSIUM 4.8 mmol/L (3.6-5.0); SODIUM 137.3 mmol/L (137-145); TOTAL PROTEIN 6.2 g/dL (6.3-8.2)
--- NOTE | 2018-06-29 13:22 | RADIOLOGY REPORT (SQ) ---
EXAM DESCRIPTION: CHEST 2 VIEWS COMPLETED DATE/TIME: 06/29/2018 12:44 pm REASON FOR STUDY: Shortness of breath history of CHF COMPARISON: 06/25/2018 EXAM PARAMETERS: NUMBER OF VIEWS: two views TECHNIQUE: Digital Frontal and Lateral radiographic views of the chest acquired. RADIATION DOSE: NA LIMITATIONS: none FINDINGS: LUNGS AND PLEURA: No opacities, masses or pneumothorax. No pleural effusion. MEDIASTINUM AND HILAR STRUCTURES: No masses or contour abnormalities. HEART AND VASCULAR STRUCTURES: Heart normal size. No evidence for failure. BONES: No acute findings. HARDWARE: None in the chest. OTHER: No other significant finding. IMPRESSION: NO ACUTE RADIOGRAPHIC FINDING IN THE CHEST. TECHNICAL DOCUMENTATION: JOB ID: [id number] [employer]- All Rights Reserved Reading location - IP/workstation name: [email or web address]
[2018-06-29] MEDS ORDERED: OXYCODONE-ACETAMINOPHEN 5-325 MG TABLET PO ONE (13:44)
[2018-06-29] MEDS ORDERED: CYCLOBENZAPRINE HCL 10 MG TABLET PO ONE (13:45)
--- NOTE | 2018-06-29 13:51 | ER Document Report ---
ED General - General Chief Complaint: Shortness Of Breath Stated Complaint: NECK PAIN Time Seen by Provider: 06/29/18 12:13 Primary Care Provider: HAYDEE ADAM MD [Primary Care Provider] - Follow up as needed Mode of Arrival: Wheelchair TRAVEL OUTSIDE OF THE [place] IN LAST 30 DAYS: No - HPI Notes: Patient is a 37-year-old female with multiple comorbidities that presents to the emergency department for chief complaint of left-sided neck pain. Patient reports chronic left-sided neck pain that is sharp and burning in nature. It is worse when she tries to look to the left. She states it is been ongoing for the last few days. Patient has had 2 visits in the emergency room and states that we keep giving her "Band-Aids" but are not fixing the problem. Patient denies any change in her symptoms since her last visit but states it is no better. She does get temporary relief with the muscle relaxer. She has not been doing stretching heat or ice. Patient has not seen her PCP since her visit in the emergency room. She denies any difficulty swallowing or eating. She denies any chest pain fevers or chills. She states her throat feels normal. Past Medical History: A. fib, dilated cardiomyopathy, CHF, diabetes, asthma Past Surgical History: Cholecystectomy Social History: Infrequent alcohol. Denies tobacco or drug use Family History: Reviewed and noncontributory for presenting illness Allergies: Reviewed, see documented allergy list. REVIEW OF SYSTEMS: CONSTITUTIONAL : No fever No chills No diaphoresis No recent illness EENT: No vision changes No congestion No sore throat CARDIOVASCULAR: No chest pain No palpitations RESPIRATORY: No shortness of breath No cough No difficulty breathing GASTROINTESTINAL: No abdominal pain No nausea No vomiting No diarrhea GENITOURINARY: No dysuria No hematuria No difficulty urinating MUSCULOSKELETAL: No back pain No leg pain No arm pain Neck pain SKIN: No rashes No lesions LYMPHATIC: No swollen, enlarged glands. NEUROLOGICAL: No lightheadedness No headache No weakness No paresthesias PSYCHIATRIC: No anxiety No depression PHYSICAL EXAMINATION: Vital signs reviewed, nursing noted reviewed. GENERAL: Well-appearing, obese and in no acute distress. HEAD: Atraumatic, normocephalic. EYES: Eyes appear normal, extraocular movements intact, sclera anicteric, conjunctiva are normal. ENT: No sublingual edema, dental caries, no gingival erythema nares patent, oropharynx clear without exudates. Moist mucous membranes. NECK: No submental or submandibular tenderness, decreased range of motion to the left, exquisite tenderness to very light palpation of left sternocleidomastoid group. No obvious mass, no carotid bruit bilaterally. Supple without lymphadenopathy LUNGS: Breath sounds clear to auscultation bilaterally and equal. No wheezes rales or rhonchi. HEART: Regular rate and rhythm without murmurs ABDOMEN: Soft, nontender, normoactive bowel sounds. No rebound, guarding, or rigidity. No masses appreciated. EXTREMITIES: Nontender, good range of motion, bilateral leg edema, symmetric. NEUROLOGICAL: No focal neurological deficits. Moves all extremities spontaneously Motor and sensory grossly intact on exam. PSYCH: Normal mood, normal affect. SKIN: Warm, Dry, normal turgor, no rashes or lesions noted on exposed skin - Related Data Allergies/Adverse Reactions: amoxicillin [Amoxicillin] Allergy (Severe, Verified 06/29/18 11:30) Anaphylaxis Penicillins Allergy (Severe, Verified 06/29/18 11:30) Anaphylaxis Bees/Wasp Allergy (Severe, Uncoded 06/29/18 11:30) Anaphylaxis Past Medical History - General Information source: Patient - Social History Smoking Status: Never Smoker Chew tobacco use (# tins/day): No Frequency of alcohol use: Rare Drug Abuse: None Family History: Reviewed & Not Pertinent, CAD, DM, Hypertension, Malignancy Patient has suicidal ideation: No Patient has homicidal ideation: No - Past Medical History Cardiac Medical History: Reports: Hx Atrial Fibrillation, Hx Congestive Heart Failure, Hx Hypercholesterolemia, Hx Hypertension Denies: Hx Coronary Artery Disease, Hx Heart Attack Pulmonary Medical History: Reports: Hx Asthma - SEVERE, Hx Bronchitis, Hx COPD, Hx Pneumonia Neurological Medical History: Denies: Hx Cerebrovascular Accident, Hx Seizures Endocrine Medical History: Reports: Hx Diabetes Mellitus Type 1, Hx Diabetes Mellitus Type 2 Renal/ Medical History: Reports: Hx Kidney Stones. Denies: Hx Peritoneal Dialysis GI Medical History: Denies: Hx Cirrhosis, Hx Crohn's Disease, Hx Hepatitis Musculoskeletal Medical History: Denies Hx Arthritis Psychiatric Medical History: Reports: Hx Anxiety, Hx Bipolar Disorder, Hx Depression Infectious Medical History: Denies: Hx Hepatitis Past Surgical History: Reports: Hx Abdominal Surgery - hernia, Hx Cholecystectomy, Hx Herniorrhaphy, Hx Umbilical Hernia - Immunizations Immunizations up to date: No Hx Diphtheria, Pertussis, Tetanus Vaccination: Yes Hx Pneumococcal Vaccination: 11/12/17 Physical Exam - Vital signs Vitals: Temp Pulse Resp BP Pulse Ox 98.1 F 91 40 H 107/74 98 06/29/18 11:34 06/29/18 11:34 06/29/18 11:34 06/29/18 11:34 06/29/18 11:34 Course - Re-evaluation Re-evalutation: 06/29/18 13:49 Vitals reviewed per nursing notes reviewed. Patient is afebrile with an unremarkable work-up. Her chest x-ray is normal. She is denying any increase in shortness of breath to me currently. Patient has been seen in the emergency room a few times for the same complaint. She is saying that we are only giving her a "Band-Aid" and not fixing the problem. Patient has not seen her primary care since her last few visits in the ER. She has been taking the muscle relaxer but states her last dose was yesterday. Patient was given Flexeril and Percocet for pain management. She has exquisite tenderness to very very light palpation over her left neck with decreased range of motion to the left. This is consistent with musculoskeletal cause of pain. She has no carotid bruit or neurologic signs to suggest carotid dissection or occlusion. Patient has no oropharyngeal erythema or edema and has no symptoms with swallowing to suggest retropharyngeal or peritonsillar abscess. Rapid strep was negative. She has no rash consistent with shingles. Patient was counseled on stretching as well as heat and anti-inflammatories. She still has a muscle relaxer prescription at home that she will continue to take. I advised her to follow with ENT for further work-up if her symptoms are not resolving. She will also talk to her PCP about possible physical therapy. She is stable at discharge. Laboratory 06/29/18 06/29/18 06/29/18 12:23 12:23 12:23 WBC 11.0 H RBC 5.02 Hgb 12.6 Hct 38.2 MCV 76 L MCH 25.1 L MCHC 33.0 RDW 17.9 H Plt Count 296 Seg Neutrophils % 73.4 Lymphocytes % 19.6 Monocytes % 4.7 Eosinophils % 1.8 Basophils % 0.5 Absolute Neutrophils 8.1 Absolute Lymphocytes 2.2 Absolute Monocytes 0.5 Absolute Eosinophils 0.2 Absolute Basophils 0.1 Sodium 137.3 Potassium 4.8 Chloride 101 Carbon Dioxide 27 Anion Gap 9 BUN 15 Creatinine 0.70 Est GFR ( Amer) > 60 Est GFR (Non-Af Amer) > 60 Glucose 246 H Calcium 9.2 Total Bilirubin 0.3 Direct Bilirubin 0.3 Neonat Total Bilirubin Not Reportable Neonat Direct Bilirubin Not Reportable Neonat Indirect Bili Not Reportable AST 18 ALT 31 Alkaline Phosphatase 49 Total Protein 6.2 L Albumin 3.7 Group A Strep Rapid NEGATIVE Chest X-Ray 06/29/18 12:13 IMPRESSION: NO ACUTE RADIOGRAPHIC FINDING IN THE CHEST. - Vital Signs Vital signs: Temp Pulse Resp BP Pulse Ox 98.1 F 91 40 H 107/74 98 06/29/18 11:34 06/29/18 11:34 06/29/18 11:34 06/29/18 11:34 06/29/18 11:34 - Laboratory Result Diagrams: 06/29/18 12:23 06/29/18 12:23 Laboratory results interpreted by me: 06/29/18 06/29/18 12:23 12:23 WBC 11.0 H MCV 76 L MCH 25.1 L RDW 17.9 H Glucose 246 H Total Protein 6.2 L Discharge - Discharge Clinical Impression: Neck pain Condition: Stable Disposition: HOME, SELF-CARE Instructions: Torticollis ([facility]) Additional Instructions: Please return to the emergency department if you have any worsening, or concern of your symptoms. Please return to the emergency department if you develop chest pain, difficulty breathing, severe abdominal pain, or ongoing vomiting. Please follow-up with your primary care physician in 2-3 days and any other recommended physicians. If prescribed, take all medications as directed. If you have any questions or concerns do not hesitate to return the emergency department for evaluation. Referrals: HAYDEE ADAM MD [Primary Care Provider] - Follow up in 3-5 days SHERLY BRIDGES MD [ACTIVE STAFF] - Follow up in 3-5 days
[2018-06-29 14:06] VITALS: BP 121/77
== END 2018-06-29 14:06 | disposition home or self-care (01) ==
LOC: ER 11:28
DX: M54.2 Cervicalgia (principal); R06.02 Shortness of breath; I50.9 Heart failure, unspecified; I11.0 Hypertensive heart disease with heart failure; J44.9 Chronic obstructive pulmonary disease, unspecified; E11.9 Type 2 diabetes mellitus without complications
CPT/HCPCS: 36415; 71046; 80053; 85025; 87070; 87077; 87880; 99283

== ENCOUNTER 2018-07-06 22:08 | Emergency (ER) | payer OTHER ==
--- NOTE | 2018-07-06 22:28 | ER Document Report ---
ED General - General Stated Complaint: CHEST PAIN Time Seen by Provider: 07/06/18 22:21 Primary Care Provider: HAYDEE ADAM MD [Primary Care Provider] - Follow up in 3-5 days Notes: 37-year-old female with chest pain sharp central reproducible similar to past episodes but more severe. Started 35 minutes ago. Nitro had no effect. She w as in [facility] for EMS. This patient has a long cardiac history with cardiomyopathy on all the medications, and has been seen multiple times in this ED for chest pain. She has had a cath in the last 2 years that is clean. TRAVEL OUTSIDE OF THE [place] IN LAST 30 DAYS: No - Related Data Allergies/Adverse Reactions: amoxicillin [Amoxicillin] Allergy (Severe, Verified 06/29/18 11:30) Anaphylaxis Penicillins Allergy (Severe, Verified 06/29/18 11:30) Anaphylaxis Bees/Wasp Allergy (Severe, Uncoded 06/29/18 11:30) Anaphylaxis Past Medical History - Social History Smoking Status: Former Smoker Family History: Reviewed & Not Pertinent, CAD, DM, Hypertension, Malignancy - Past Medical History Cardiac Medical History: Reports: Hx Atrial Fibrillation, Hx Congestive Heart Failure, Hx Hypercholesterolemia, Hx Hypertension Denies: Hx Coronary Artery Disease, Hx Heart Attack Pulmonary Medical History: Reports: Hx Asthma - SEVERE, Hx Bronchitis, Hx COPD, Hx Pneumonia Neurological Medical History: Denies: Hx Cerebrovascular Accident, Hx Seizures Endocrine Medical History: Reports: Hx Diabetes Mellitus Type 1, Hx Diabetes M ellitus Type 2 Renal/ Medical History: Reports: Hx Kidney Stones. Denies: Hx Peritoneal Dialysis GI Medical History: Denies: Hx Cirrhosis, Hx Crohn's Disease, Hx Hepatitis Musculoskeletal Medical History: Denies Hx Arthritis Psychiatric Medical History: Reports: Hx Anxiety, Hx Bipolar Disorder, Hx Depression Infectious Medical History: Denies: Hx Hepatitis Past Surgical History: Reports: Hx Abdominal Surgery - hernia, Hx Cholecystectomy, Hx Herniorrhaphy, Hx Umbilical Hernia - Immunizations Immunizations up to date: No Hx Diphtheria, Pertussis, Tetanus Vaccination: Yes Hx Pneumococcal Vaccination: 11/12/17 Review of Systems - Review of Systems Notes: REVIEW OF SYSTEMS GEN: Denies fever, chills, weight loss ENT: Denies sore throat, nasal discharge, ear pain EYES: Denies blurry vision, eye pain, discharge CV: Sharp chest pain RESP: Denies cough, shortness of breath, wheezing GI: Denies abdominal pain, nausea, vomiting, diarrhea MSK: Denies joint pain/swelling, edema, SKIN: Denies rash, skin lesions LYMPH: Denies swollen glands/lymph nodes NEURO: Denies headache, focal weakness or numbness, dizziness PSYCH: Denies depression, suicidal or homicidal ideation PHYSICAL EXAMINATION General: Obese, mild distress Head: Atraumatic, normocephalic ENT: Mouth normal, oropharynx moist, no exudates or tonsillar enlargement Eyes: Conjunctiva normal, pupils equal, lids normal Neck: No JVD, supple, no guarding CVS: Normal rate, regular rhythm, no murmurs, parasternal chest tenderness bilaterally Resp: No resp distress, equal and normal breath sounds bilaterally GI: Nondistended, soft, no tenderness to palpation, no rebound or guarding Ext: No deformities, no edema, normal range of motion in upper and lower ext Back: No CVA or midline TTP Skin: No rash, warm Lymphatic: No lymphadeopathy noted Neuro: Awake, alert. Face symmetric. GCS 15. Physical Exam - Vital signs Vitals: Temp Pulse Resp BP Pulse Ox 98.0 F 95 25 H 129/79 H 100 07/06/18 22:09 07/06/18 22:09 07/06/18 22:09 07/06/18 22:09 07/06/18 22:09 Course - Re-evaluation Re-evalutation: 07/07/18 02:57 Patient with a history of CHF and poor ejection fraction presents with atypical chest pain. Her EKG initially was normal then she had some bigeminy but this resolved while in the emergency department. Elevate it, however she has no clinical signs of decompensated failure and is stable on her home dose of oxygen. She was given Dilaudid for her chest pain. I do not suspect that this is cardiac. Her troponin, although detectable, did not significant rise after 3 hours her pain was relieved with 1 dose of opioid, her work-up is otherwise negative. Given her multiple negative presentations and recent negative cath I think she is stable for discharge home. She will follow-up with her catalytic converter operator helper by phone tomorrow. I have discussed with the patient there likely diagnosis, aftercare plan, follow-up plans and my usual and customary return pre cautions. They verbalized understanding of this. - Vital Signs Vital signs: Temp Pulse Resp BP Pulse Ox 97.6 F 95 26 H 127/85 H 98 07/07/18 02:00 07/06/18 22:09 07/07/18 02:00 07/07/18 01:59 07/07/18 02:00 - Laboratory Result Diagrams: 07/06/18 22:25 07/06/18 22:25 Laboratory results interpreted by me: 07/06/18 07/06/18 07/06/18 22:25 22:25 22:25 WBC 13.7 H Hgb 11.4 L Hct 34.3 L MCV 76 L MCH 25.3 L RDW 17.3 H Absolute Neutrophils 9.1 H Glucose 201 H NT-Pro-B Natriuret Pep 665 H - Diagnostic Test Radiology reviewed: Image reviewed, Reports reviewed - EKG Interpretation by Me EKG shows normal: Sinus rhythm Rate: Normal Rhythm: NSR Discharge - Discharge Clinical Impression: Abnormal EKG Congestive heart failure (CHF) Qualifiers: Heart failure type: other Qualified Code(s): I50.9 - Heart failure, unspecified Chest pain, unspecified Qualifiers: Chest pain type: unspecified Qualified Code(s): R07.9 - Chest pain, unspecified Condition: Good Disposition: HOME, SELF-CARE Instructions: Chest Pain of Unclear Cause ([facility]) Additional Instructions: Your testing tonight did not show a dangerous cause of chest pain. You had some extra beats on your EKG, and this needs to be repeated in the catalytic converter operator helper office within 5 days. Referrals: HAYDEE ADAM MD [Primary Care Provider] - Follow up in 3-5 days
--- NOTE | 2018-07-06 22:46 | RADIOLOGY REPORT (SQ) ---
EXAM DESCRIPTION: XR CHEST 1 VIEW COMPLETED DATE/TME: 07/06/2018 22:21 CLINICAL HISTORY: 37 years, Female, SOB CHF Compared to 06/25/2018. Findings: The heart is mildly enlarged. No pneumothorax. No pulmonary edema. No pleural effusion. IMPRESSION: No acute disease.
[2018-07-06 22:50] LABS: ABSOLUTE EOSINOPHILS # (AUTO) 0.2 10^3/uL (0.0-0.6); ABSOLUTE LYMPHOCYTES (AUTO) 3.5 10^3/uL (0.5-4.7); ABSOLUTE MONOCYTES (AUTO) 0.9 10^3/uL (0.1-1.4); ABSOLUTE NEUT (AUTO) 9.1 10^3/uL (1.7-8.2); BASOPHILS % (AUTO) 0.3 % (0-2); EOSINOPHILS % (AUTO) 1.5 % (0-6); HEMATOCRIT 34.3 % (36.0-47.0); HEMOGLOBIN 11.4 g/dL (12.0-15.5); LYMPHOCYTES % (AUTO) 25.5 % (13-45); MEAN CORPUSCULAR HEMOGLOBIN 25.3 pg (27.0-33.4); MEAN CORPUSCULAR HGB CONC 33.4 g/dL (32.0-36.0); MEAN CORPUSCULAR VOLUME 76 fl (80-97); MONOCYTES % (AUTO) 6.5 % (3-13); PLATELET COUNT 268 10^3/uL (150-450); RED BLOOD COUNT 4.52 10^6/uL (3.72-5.28); RED CELL DISTRIBUTION WIDTH 17.3 % (11.5-14.0); SEGMENTED NEUTROPHILS % (AUTO) 66.2 % (42-78); TOTAL CELLS COUNTED % (AUTO) 100 %; WHITE BLOOD COUNT 13.7 10^3/uL (4.0-10.5)
[2018-07-06] MEDS ORDERED: HYDROMORPHONE HCL INJ/PF 2 MG/ML AMPULE IV ONE (23:02)
[2018-07-06 23:12] LABS: ANION GAP 10 (5-19); BLOOD UREA NITROGEN 13 mg/dL (7-20); CALCIUM 9.3 mg/dL (8.4-10.2); CARBON DIOXIDE 28 mmol/L (22-30); CHLORIDE 100 mmol/L (98-107); GLUCOSE 201 mg/dL (75-110); POTASSIUM 4.2 mmol/L (3.6-5.0); SODIUM 137.9 mmol/L (137-145)
[2018-07-06 23:24] LABS: TROPONIN I 0.025 ng/mL
[2018-07-07] MEDS ORDERED: ONDANSETRON HCL INJ/PF 4 MG/2 ML SDV IV ONE (00:07)
[2018-07-07 02:12] VITALS: BP 127/85
--- NOTE | 2018-07-07 07:41 | EKG REPORT ---
SEVERITY:- ABNORMAL ECG - SINUS RHYTHM VENTRICULAR PREMATURE COMPLEX ABNORMAL Q SUGGESTS ANTERIOR INFARCT NONSPECIFIC T ABNORMALITIES, LATERAL LEADS BORDERLINE PROLONGED QT INTERVAL : Confirmed by: Eder John MD 07-Jul-2018 07:41:17
== END 2018-07-07 02:12 | disposition home or self-care (01) ==
LOC: ER 22:08
DX: I11.0 Hypertensive heart disease with heart failure (principal); I50.9 Heart failure, unspecified; I42.9 Cardiomyopathy, unspecified; Z79.899 Other long term (current) drug therapy; R00.8 Other abnormalities of heart beat; R07.89 Other chest pain; J44.9 Chronic obstructive pulmonary disease, unspecified; E11.9 Type 2 diabetes mellitus without complications; E66.9 Obesity, unspecified; Z87.891 Personal history of nicotine dependence
CPT/HCPCS: 93005; 99285; 96374; 96375; 36415; 83735; 85025; 80048; 84484; 83880; 71045; 93010; J1170; J2405

== ENCOUNTER 2018-07-11 21:09 | Emergency (ER) | payer OTHER ==
--- NOTE | 2018-07-11 21:46 | ER Document Report ---
ED Medical Screen (RME) - General Chief Complaint: Post Surgical Pain Stated Complaint: POST OP ISSUE Time Seen by Provider: 07/11/18 21:38 Primary Care Provider: HAYDEE ADAM MD [Primary Care Provider] - Follow up as needed Notes: Patient is a 37-year-old female who presents to the emergency department with a chief complaint of right groin pain. She states that she he noticed a knot to her right groin 3 days ago. States the area is very full. She took some ibuprofen this morning and took some Flexeril last night, but had no relief. Patient has a history of a cardiac cath 1 month ago. States that it is the same area that she had her cath done. She denies any shortness of breath she is oxygen dependent on 4 L nasal cannula. Exam: Abscess noted to right groin. I have greeted and performed a rapid initial assessment of this patient. A comprehensive ED assessment and evaluation of the patient, analysis of test results and completion of medical decision making process will be conducted by an additional ED providers. TRAVEL OUTSIDE OF THE [place] IN LAST 30 DAYS: No - Related Data Allergies/Adverse Reactions: amoxicillin [Amoxicillin] Allergy (Severe, Verified 07/11/18 21:16) Anaphylaxis Penicillins Allergy (Severe, Verified 07/11/18 21:16) Anaphylaxis Bees/Wasp Allergy (Severe, Uncoded 07/11/18 21:16) Anaphylaxis Past Medical History - Social History Family history: CAD, DM, Hypertension, Malignancy - Past Medical History Cardiac Medical History: Reports: Hx Atrial Fibrillation, Hx Congestive Heart Failure, Hx Hypercholesterolemia, Hx Hypertension Denies: Hx Coronary Artery Disease, Hx Heart Attack Pulmonary Medical History: Reports: Hx Asthma - SEVERE, Hx Bronchitis, Hx COPD, Hx Pneumonia Neurological Medical History: Denies: Hx Cerebrovascular Accident, Hx Seizures Endocrine Medical History: Reports: Hx Diabetes Mellitus Type 1, Hx Diabetes Mellitus Type 2 Renal/ Medical History: Reports: Hx Kidney Stones. Denies: Hx Peritoneal Dialysis GI Medical History: Denies: Hx Cirrhosis, Hx Crohn's Disease, Hx Hepatitis Musculoskeltal Medical History: Denies Hx Arthritis Psychiatric Medical History: Reports: Hx Anxiety, Hx Bipolar Disorder, Hx Depression Infectious Medical History: Denies: Hx Hepatitis Past Surgical History: Reports: Hx Abdominal Surgery - hernia, Hx Cholecystectomy, Hx Herniorrhaphy, Hx Umbilical Hernia - Immunizations Immunizations up to date: No Hx Diphtheria, Pertussis, Tetanus Vaccination: Yes History of Influenza Vaccine for 12/2016 - 05/2017 Season: Yes Influenza Administration Date for 12/2016 - 05/2017 Season: 11/12/17 Physical Exam - Vital signs Vitals: Temp Pulse Resp BP Pulse Ox 98.4 F 93 18 123/72 98 07/11/18 21:29 07/11/18 21:29 07/11/18 21:29 07/11/18 21:29 07/11/18 21:29 Course - Vital Signs Vital signs: Temp Pulse Resp BP Pulse Ox 98.4 F 93 18 123/72 98 07/11/18 21:29 07/11/18 21:29 07/11/18 21:29 07/11/18 21:29 07/11/18 21:29 Doctor's Discharge - Discharge Referrals: HAYDEE ADAM MD [Primary Care Provider] - Follow up as needed
[2018-07-11] MEDS ORDERED: LIDOCAINE 1%/EPINEPHRINE INJ 20 ML VIAL INJ ONE (21:47)
[2018-07-11] MEDS ORDERED: HYDROCODONE/ACETAMINOPHEN 5-325 MG TABLET PO ONE (21:47)
[2018-07-11] MEDS ORDERED: ONDANSETRON HCL INJ/PF 4 MG/2 ML SDV IV ONE (23:41)
[2018-07-11] MEDS ORDERED: MORPHINE SULFATE 10 MG/ML INJ IV ONE (23:41)
[2018-07-12 01:09] LABS: ABSOLUTE BASOPHILS # (AUTO) 0.1 10^3/uL (0.0-0.2); ABSOLUTE EOSINOPHILS # (AUTO) 0.2 10^3/uL (0.0-0.6); ABSOLUTE LYMPHOCYTES (AUTO) 2.7 10^3/uL (0.5-4.7); ABSOLUTE MONOCYTES (AUTO) 0.7 10^3/uL (0.1-1.4); ABSOLUTE NEUT (AUTO) 7.9 10^3/uL (1.7-8.2); BASOPHILS % (AUTO) 1.2 % (0-2); EOSINOPHILS % (AUTO) 1.6 % (0-6); HEMATOCRIT 33.9 % (36.0-47.0); HEMOGLOBIN 10.9 g/dL (12.0-15.5); MEAN CORPUSCULAR HEMOGLOBIN 24.6 pg (27.0-33.4); MEAN CORPUSCULAR HGB CONC 32.1 g/dL (32.0-36.0); MEAN CORPUSCULAR VOLUME 77 fl (80-97); MONOCYTES % (AUTO) 6.3 % (3-13); PLATELET COUNT 256 10^3/uL (150-450); RED BLOOD COUNT 4.43 10^6/uL (3.72-5.28); RED CELL DISTRIBUTION WIDTH 17.4 % (11.5-14.0); SEGMENTED NEUTROPHILS % (AUTO) 67.9 % (42-78); TOTAL CELLS COUNTED % (AUTO) 100 %; WHITE BLOOD COUNT 11.6 10^3/uL (4.0-10.5)
[2018-07-12 01:27] LABS: ALANINE AMINOTRANSFERASE 25 U/L (9-52); ALBUMIN 3.8 g/dL (3.5-5.0); ALKALINE PHOSPHATASE 51 U/L (38-126); ANION GAP 9 (5-19); ASPARTATE AMINO TRANSFERASE 24 U/L (14-36); BILIRUBIN,DIRECT 0.2 mg/dL (0.0-0.4); BILIRUBIN,TOTAL 0.4 mg/dL (0.2-1.3); BLOOD UREA NITROGEN 17 mg/dL (7-20); CALCIUM 8.8 mg/dL (8.4-10.2); CARBON DIOXIDE 27 mmol/L (22-30); CHLORIDE 105 mmol/L (98-107); GLUCOSE 163 mg/dL (75-110); POTASSIUM 4.1 mmol/L (3.6-5.0); TOTAL PROTEIN 6.6 g/dL (6.3-8.2)
--- NOTE | 2018-07-12 01:51 | ER Document Report ---
Addendum entered and electronically signed by DIMAS SKELTON PA-C 07/12/18 15:02: Discharge - Discharge Clinical Impression: Abscess of right groin Condition: Stable Disposition: HOME, SELF-CARE Instructions: Post Incision and Drainage Additional Instructions: You were seen for an abscess that required drainage. Please clean this area with soap and water twice daily and apply a topical antibiotic. Dress the area after each cleaning. Started on antibiotics. Take all your antibiotics as prescri bed. Please return if you develop fever, vomiting, the pain at the site worsens, you notice spreading redness from the area, or you have any other symptoms that are concerning to you. Prescriptions: Doxycycline Hyclate 100 mg PO BID #14 capsule Referrals: MIKE LEON MD [ACTIVE STAFF] - Follow up in 1 week HAYDEE ADAM MD [Primary Care Provider] - Follow up as needed Original Note: ED Skin Rash/Insect Bite/Abscs - General Mode of Arrival: Ambulatory Information source: Patient TRAVEL OUTSIDE OF THE [place] IN LAST 30 DAYS: No - HPI Patient complains to provider of: Tender/swollen area Onset: Other - 2 days Onset/Duration: Gradual Quality of pain: Fullness, Pressure, Sharp, Stabbing, Throbbing Severity: Severe Pain Level: 5 Skin Character: Abscess, Erythema, Tenderness, Thickening, Warm. No: Drainage Skin Temperature: Warm Quality of rash: Painful Identify cause: No Exacerbated by: Standing, Movement, Walking Relieved by: Denies Similar symptoms previously: No Recently seen / treated by doctor: No <DIMAS SKELTON - Last Filed: 07/12/18 01:43> <SHERRIE SAMUEL - Last Filed: 07/12/18 08:31> - General Chief Complaint: Post Surgical Pain Stated Complaint: POST OP ISSUE Time Seen by Provider: 07/11/18 21:38 Primary Care Provider: HAYDEE ADAM MD [Primary Care Provider] - Follow up as needed Notes: Patient is a 37-year-old female comes emergency room complaining of having a abscess in her right groin area. Patient states that she had a heart cath done approximately 1 month ago and since that time she said irritation in the area and over the past 3 days it has grown in to the point of where her pain is excruciating. She states that it is in the area of the right groin down into the curve of her leg. Patient states she is been using warm moist compresses on it 3-4 times a day without any help at this time. Patient has extensive past medical history of insulin dependent diabetes and oral dependent diabetes. Hypertension, congestive heart failure, she is on oxygen 24 7 with a history of atrial fib, cardiomyopathy,. Patient denies smoking last menstrual period was on the 17th a month and she does state that she is sexually active without having any dyspareunia. There is also no discharge. (DIMAS SKELTON) - Related Data Allergies/Adverse Reactions: amoxicillin [Amoxicillin] Allergy (Severe, Verified 07/11/18 21:16) Anaphylaxis Penicillins Allergy (Severe, Verified 07/11/18 21:16) Anaphylaxis Bees/Wasp Allergy (Severe, Uncoded 07/11/18 21:16) Anaphylaxis Past Medical History - General Information source: Patient, [facility] Records - Social History Smoking Status: Never Smoker Cigarette use (# per day): No Chew tobacco use (# tins/day): No Smoking Education Provided: No Frequency of alcohol use: None Drug Abuse: None Lives with: Family Family History: Reviewed & Not Pertinent, CAD, DM, Hypertension, Malignancy Patient has suicidal ideation: No Patient has homicidal ideation: No - Past Medical History Cardiac Medical History: Reports: Hx Atrial Fibrillation, Hx Congestive Heart Failure, Hx Hypercholesterolemia, Hx Hypertension Denies: Hx Coronary Artery Disease, Hx Heart Attack Pulmonary Medical History: Reports: Hx Asthma - SEVERE, Hx Bronchitis, Hx COPD, Hx Pneumonia Neurological Medical History: Denies: Hx Cerebrovascular Accident, Hx Seizures Endocrine Medical History: Reports: Hx Diabetes Mellitus Type 1, Hx Diabetes Mellitus Type 2 - insulin dependent Renal/ Medical History: Reports: Hx Kidney Stones. Denies: Hx Peritoneal Dialysis GI Medical History: Denies: Hx Cirrhosis, Hx Crohn's Disease, Hx Hepatitis Musculoskeletal Medical History: Denies Hx Arthritis Psychiatric Medical History: Reports: Hx Anxiety, Hx Bipolar Disorder, Hx Depression Infectious Medical History: Denies: Hx Hepatitis Past Surgical History: Reports: Hx Abdominal Surgery - hernia, Hx Cardiac Catheterization, Hx Cholecystectomy, Hx Herniorrhaphy, Hx Umbilical Hernia - Immunizations Immunizations up to date: No Hx Diphtheria, Pertussis, Tetanus Vaccination: Yes Hx Pneumococcal Vaccination: 11/12/17 <DIMAS SKELTON - Last Filed: 07/12/18 01:43> Review of Systems - Review of Systems Constitutional: No symptoms reported EENT: No symptoms reported Cardiovascular: No symptoms reported Respiratory: No symptoms reported Gastrointestinal: No symptoms reported Genitourinary: No symptoms reported Female Genitourinary: No symptoms reported Musculoskeletal: No symptoms reported Skin: See HPI, Change in color, Other - Abscess Hematologic/Lymphatic: No symptoms reported Neurological/Psychological: No symptoms reported <DIMAS SKELTON - Last Filed: 07/12/18 01:43> Physical Exam - Vital signs Interpretation: Normal <DIMAS SKELTON - Last Filed: 07/12/18 01:43> - Vital signs Vitals: Temp Pulse Resp BP Pulse Ox 98.4 F 93 18 123/72 98 07/11/18 21:29 07/11/18 21:29 07/11/18 21:29 07/11/18 21:29 07/11/18 21:29 - Notes Notes: PHYSICAL EXAMINATION: GENERAL: Well-appearing, well-nourished and in no acute distress. Very uncomfortable appearing unable to find a position of comfort HEAD: Atraumatic, normocephalic. LUNGS: Auscultation patient lung adams show she has bilateral breath sounds of breath sounds decreased throughout without any rhonchi rales or wheeze noted at this time. HEART: Regular rate and rhythm without murmurs. NEUROLOGICAL: Cranial nerves grossly intact. Normal speech, normal gait. Normal sensory, motor exams PSYCH: Normal mood, normal affect. SKIN: Patient's area of concern is her right groin area. This is the area established as an entrance point for her heart catheterization a month ago. Examination the area is extremely difficult since patient has hypersensitivity to touch in the area. I am unable to move her labia majora away from her groin area. There does appear to be a area of induration and warmth and fluctuance however it is very difficult to apply any pressure secondary to the hypersensitivity to touch. Patient screams at the top of her lungs and arches her back and moves away from our touching at the time. We have elected to do a CT to see if there is any abscess in the localized area. (DIMAS SKELTON) Course - Laboratory Result Diagrams: 07/12/18 00:50 07/12/18 00:50 <DIMAS SKELTON - Last Filed: 05/01/19 01:43> - Laboratory Result Diagrams: 07/12/18 00:50 07/12/18 00:50 <SHERRIE SAMUEL - Last Filed: 07/12/18 08:31> - Re-evaluation Re-evalutation: 07/12/18 01:56 I had a very difficult time of doing any type of exam in the area Dr. Walters, will take a look with me. She agreed to the exaggerated response of hypersensitivity to touch was a little unbelievable however given that we are going to ahead and do a CT of the area with IV contrast. After that possible surgical consult may be warranted. In the meantime I will go ahead and give patient IV clindamycin while we wait. (DIMAS SKELTON) 07/12/18 02:00 Report was given to myself by DARIELA Kirk. 07/12/18 02:[address] Leon in regards to the patient's CT results. He will come to bedside to perform the incision and drainage. 07/12/18 03:45 Dr. Leon performed an incision and drainage to the patient's right groin. The patient will follow-up with outpatient surgical clinic. She also be started on doxycycline. She is in agreement with this plan. Verbal discharge instructions were given to the patient. They verbalized understanding. They are stable for discharge. (SHERRIE SAMUEL) - Vital Signs Vital signs: Temp Pulse Resp BP Pulse Ox 97.5 F 77 18 133/73 H 97 07/12/18 03:36 07/12/18 03:36 07/11/18 21:29 07/12/18 03:36 07/12/18 03:36 - Laboratory Laboratory results interpreted by me: 07/12/18 07/12/18 07/12/18 00:50 00:50 04:26 WBC 11.6 H Hgb 10.9 L Hct 33.9 L MCV 77 L MCH 24.6 L RDW 17.4 H Glucose 163 H POC Glucose 158 H Discharge <DIMAS SKELTON - Last Filed: 07/12/18 01:43> <SHERRIE SAMUEL - Last Filed: 07/12/18 08:31> - Discharge Clinical Impression: Abscess of right groin Condition: Stable Disposition: HOME, SELF-CARE Instructions: Post Incision and Drainage Additional Instructions: You were seen for an abscess that required drainage. Please clean this area with soap and water twice daily and apply a topical antibiotic. Dress the area after each cleaning. Started on antibiotics. Take all your antibiotics as prescribed. Please return if you develop fever, vomiting, the pain at the site worsens, you notice spreading redness from the area, or you have any other symptoms that are concerning to you. Prescriptions: Doxycycline Hyclate 100 mg PO BID #14 capsule Referrals: HAYDEE ADAM MD [Primary Care Provider] - Follow up as needed MIKE LEON MD [ACTIVE STAFF] - Follow up in 1 week
[2018-07-12] MEDS ORDERED: CLINDAMYCIN 900 MG/D5W RTU 900 MG/50 ML RTUPB IV ONE (01:57)
--- NOTE | 2018-07-12 02:16 | RADIOLOGY REPORT (SQ) ---
EXAM DESCRIPTION: CT PELVIS WITH IV CONTRAST COMPLETED DATE/TME: 07/11/2018 23:38 CLINICAL HISTORY: 37 years, Female, ? abscess right groin labial fold? CREAT 0.68 COMPARISON: 04/23/2017 CT TECHNIQUE: 575 Images stored on PACS. All CT scanners at this facility use dose modulation, iterative reconstruction, and/or weight based dosing when appropriate to reduce radiation dose to as low as reasonably achievable (ALARA). [facility]: Dose Right [facility]: CareDose [facility]: Dose Right [facility]: Teradose 4D [facility]: [employer] LIMITATIONS: None. FINDINGS: Limited evaluation of intrapelvic structures demonstrates a normal appendix. Large amount of stool in the colon. Probable follicular change to the ovaries bilaterally. Inflammatory changes in the right inguinal region with several nonenlarged to borderline enlarged right inguinal chain lymph nodes. There is a somewhat thick-walled fluid collection in the right inguinal region extending to the right labial fold measuring approximately 2.0 x 1.9 cm likely reflecting small abscess. No abnormal gas collections IMPRESSION: Subcutaneous inflammation of the right inguinal region and right labia with what is likely a small abscess, as described above. Adjacent, likely reactive inguinal chain nodes. TECHNICAL DOCUMENTATION: Quality ID # 436: Final reports with documentation of one or more dose reduction techniques (e.g., Automated exposure control, adjustment of the mA and/or kV according to patient size, use of iterative reconstruction technique) copyright 2011 [employer]- All Rights Reserved
[2018-07-12] MEDS ORDERED: LIDOCAINE 1%/EPINEPHRINE INJ 20 ML VIAL ONE (03:04)
[2018-07-12] MEDS ORDERED: LIDOCAINE 1%/EPINEPHRINE INJ 20 ML VIAL INJ ONE (03:05)
[2018-07-12 03:38] VITALS: BP 133/73
[2018-07-12] MEDS ORDERED: HYDROMORPHONE HCL INJ/PF 2 MG/ML AMPULE ONE (04:07)
--- NOTE | 2018-07-12 07:26 | PDOC CONSULTATION ---
Consultation Consult Date: 07/12/18 Consult reason:: Right groin abscess History of Present Illness Admission Date/PCP: HAYDEE ADAM MD History of Present Illness: DAYTON MENDOZA is a 37 year old female seen in consultation at the request of the emergency room physician. The patient reports a "bump" that arose in her right groin. It has become excessively tender. The pain radiates down her leg. The pain is sharp and stabbing. It is 10 out of 10. She reports a small amount of purulent drainage. She denies fevers or chills. Palpation makes her pain worse. Nothing makes it better. She denies chest pain, shortness of breath, nausea, vomiting, melena, hematochezia, abdominal pain, dizziness, orthostasis, blurry vision, fatigue, or malaise. Past Medical History Cardiac Medical History: Reports: Atrial Fibrillation, Congestive Heart Failure, Hyperlipidema, Hypertension Denies: Coronary Artery Disease, Myocardial Infarction Pulmonary Medical History: Reports: Asthma - SEVERE, Bronchitis, Chronic Obstructive Pulmonary Disease (COPD), Pneumonia Neurological Medical History: Denies: Seizures Endocrine Medical History: Reports: Diabetes Mellitus Type 1, Diabetes Mellitus Type 2 - insulin dependent GI Medical History: Denies: Cirrhosis, Crohn's Disease, Hepatitis Musculoskeltal Medical History: Denies: Arthritis Psychiatric Medical History: Reports: Bipolar Disorder, Depression Hematology: Reports: Anemia Past Surgical History Past Surgical History: Reports: Cardiac Catheterization, Cholecystectomy, Herniorrhaphy Social History Lives with: Family Smoking Status: Never Smoker Frequency of Alcohol Use: Occasional Hx Recreational Drug Use: No Drugs: None Hx Prescription Drug Abuse: No Family History Family History: Reviewed & Not Pertinent, CAD, DM, Hypertension, Malignancy Parental Family History Reviewed: Yes Children Family History Reviewed: Yes Sibling(s) Family History Reviewed.: Yes Medication/Allergy Home Medications: Albuterol Sulfate [Proair HFA Inhalation Aerosol 8.5 gm MDI] 2 puff IH Q4HP PRN 04/21/18 Aspirin [Ecotrin 81 mg EC Tablet] 81 mg PO DAILY 04/21/18 Budesonide/Formoterol Fumarate [Symbicort HFA 160-4.5 mcg Inhaler 6 gm] 2 puff IH Q12 04/21/18 Butalb/Acetaminophen/Caffeine [Fioricet (50-325-40 mg) Tablet] 1 tab PO Q6HP PRN 04/21/18 Fluticasone Propionate [Flonase Nasal Colbert 50 Mcg/Colbert 16 gm] 1 spray NASL DAILY 04/21/18 Gabapentin [Neurontin] 600 mg PO Q12 04/21/18 Glipizide [Glucotrol 10 mg Tablet] 10 mg PO BIDBS 04/21/18 Hydrochlorothiazide [Hydrodiuril 25 mg Tablet] 25 mg PO QAM 04/21/18 Insulin Glargine,Hum.rec.anlog [Lantus (Pyxis) Insulin 100 Unit/1 ml 10 ml] 40 unit SUBCUT Q12 04/21/18 Ipratropium/Albuterol Sulfate [Duoneb 3 ml Ampul] 3 ml NEB RTQ6HP PRN 04/21/18 Metformin HCl [Glucophage 500 mg Tablet] 1,000 mg PO BIDACBS 04/21/18 Tiotropium Carmine [Spiriva Respimat] 1 puff IH DAILY 04/21/18 Carvedilol [Coreg 25 mg Tablet] 1 tab PO Q12 #60 tab 04/28/18 Furosemide [Lasix 40 mg Tablet] 40 mg PO BID #60 tablet 04/28/18 Sacubitril/Valsartan [Entresto 49 mg/51 mg Tablet] 1 tab PO BID 05/29/18 Cyclobenzaprine HCl [Flexeril 10 mg Tablet] 10 mg PO TIDP PRN #15 tab 06/25/18 Doxycycline Hyclate 100 mg PO BID #14 capsule 07/12/18 Allergies/Adverse Reactions: amoxicillin [Amoxicillin] Allergy (Severe, Verified 07/11/18 21:16) Anaphylaxis Penicillins Allergy (Severe, Verified 07/11/18 21:16) Anaphylaxis Bees/Wasp Allergy (Severe, Uncoded 07/11/18 21:16) Anaphylaxis Review of Systems Constitutional: ABSENT: anorexia, chills, fatigue Eyes: ABSENT: visual disturbances Ears: ABSENT: hearing changes Nose, Mouth, and Throat: ABSENT: mouth pain, sore throat Cardiovascular: ABSENT: chest pain, dyspnea on exertion Respiratory: ABSENT: cough Gastrointestinal: ABSENT: abdominal pain, melena, nausea, vomiting Genitourinary: ABSENT: dysuria Musculoskeletal: ABSENT: back pain Integumentary: PRESENT: lesions - Right groin abscess Neurological: ABSENT: confusion, convulsions, dizziness Psychiatric: ABSENT: anxiety, depression Endocrine: ABSENT: cold intolerance, heat intolerance Hematologic/Lymphatic: ABSENT: easy bleeding, easy bruising Physical Exam Vital Signs: Temp Pulse Resp BP Pulse Ox 97.5 F 77 18 133/73 H 97 07/12/18 03:36 07/12/18 03:36 07/11/18 21:29 07/12/18 03:36 07/12/18 03:36 Intake & Output 07/11/18 07/12/18 07/13/18 06:59 06:59 06:59 Intake Total 50 Balance 50 Weight 143.335 kg General appearance: PRESENT: no acute distress, cooperative Head exam: PRESENT: atraumatic, normocephalic Eye exam: PRESENT: EOMI, PERRLA. ABSENT: scleral icterus Mouth exam: PRESENT: moist, neck supple Teeth exam: ABSENT: poor dentation Neck exam: ABSENT: meningismus, tenderness, thyromegaly, tracheal deviation Respiratory exam: PRESENT: clear to auscultation russell, unlabored. ABSENT: tachypnea, wheezes Cardiovascular exam: PRESENT: RRR Pulses: PRESENT: normal radial pulses Vascular exam: PRESENT: normal capillary refill, pallor GI/Abdominal exam: PRESENT: soft. ABSENT: distended, rebound, rigid, tenderness Rectal exam: PRESENT: deferred Gentrourinary exam: PRESENT: other - Small groin abscess adjacent to the right labia. Small amount of purulent drainage. Minimal induration. Neurological exam: PRESENT: alert, awake, oriented to person, oriented to place, oriented to time, oriented to situation, CN II-XII grossly intact Psychiatric exam: PRESENT: agitated, anxious. ABSENT: depressed Focused psych exam: ABSENT: delusional Skin exam: PRESENT: erythema. ABSENT: cyanosis, jaundice Results Laboratory Results: 07/12/18 00:50 07/12/18 00:50 07/12/18 07/12/18 00:50 00:50 WBC 11.6 H RBC 4.43 Hgb 10.9 L Hct 33.9 L MCV 77 L MCH 24.6 L MCHC 32.1 RDW 17.4 H Plt Count 256 Seg Neutrophils % 67.9 Lymphocytes % 23.0 Monocytes % 6.3 Eosinophils % 1.6 Basophils % 1.2 Absolute Neutrophils 7.9 Absolute Lymphocytes 2.7 Absolute Monocytes 0.7 Absolute Eosinophils 0.2 Absolute Basophils 0.1 Sodium 141.0 Potassium 4.1 Chloride 105 Carbon Dioxide 27 Anion Gap 9 BUN 17 Creatinine 0.59 Est GFR ( Amer) > 60 Est GFR (Non-Af Amer) > 60 Glucose 163 H Calcium 8.8 Total Bilirubin 0.4 AST 24 ALT 25 Alkaline Phosphatase 51 Total Protein 6.6 Albumin 3.8 Impressions: Pelvis CT 07/11/18 23:38 IMPRESSION: Subcutaneous inflammation of the right inguinal region and right labia with what is likely a small abscess, as described above. Adjacent, likely reactive inguinal chain nodes. TECHNICAL DOCUMENTATION: Quality ID # 436: Final reports with documentation of one or more dose reduction techniques (e.g., Automated exposure control, adjustment of the mA and/or kV according to patient size, use of iterative reconstruction technique) copyright 2011 [employer]- All Rights Reserved Assessment & Plan - Diagnosis (1) Abscess of right groin Is this a current diagnosis for this admission?: Yes - Plan Summary Plan Summary: This is a 37-year-old female with a simple right groin abscess. The emergency department has consulted surgery for incision and drainage. I have discussed this with the patient at length. Bedside incision and drainage was agreed upon by all parties. Risks/benefits discussed, informed consent obtained, and all questions answered. The patient may be discharged after incision and drainage with antibiotics and oral pain medications.
--- NOTE | 2018-07-12 07:29 | Operative Report ---
Nonrecallable Operative Report DATE OF SURGERY: 07/12/18 PREOPERATIVE DIAGNOSIS: Right groin abscess POSTOPERATIVE DIAGNOSIS: Same OPERATION: Incision and drainage of a right groin abscess SURGEON: MIKE HORN ANESTHESIA: Local TISSUE REMOVED OR ALTERED: None COMPLICATIONS: None apparent ESTIMATED BLOOD LOSS: Minimal PROCEDURE: Drains/implants: 4 x 4 gauze. Procedure in detail: After informed consent was obtained, the patient was brought into the operating room and laid in the supine position. The area of t he right groin was prepped and draped in a normal sterile fashion. 1% lidocaine with epinephrine was injected into the skin around the right labia. After adequate anesthesia, an incision was created in the abscess approximately 2 cm in length. A moderate amount of purulent material was expressed. The wound was cleaned, and then packed with a 4 x 4 gauze. A dressing was placed, and the procedure was concluded. All sponge, instrument, needle counts were correct x2. Condition: Stable.
== END 2018-07-12 04:30 | disposition home or self-care (01) ==
LOC: ER 21:09
DX: G89.18 Other acute postprocedural pain (principal); L02.214 Cutaneous abscess of groin; E11.9 Type 2 diabetes mellitus without complications; Z79.4 Long term (current) use of insulin; Z79.84 Long term (current) use of oral hypoglycemic drugs; Z98.890 Other specified postprocedural states; I10 Essential (primary) hypertension; J44.9 Chronic obstructive pulmonary disease, unspecified
CPT/HCPCS: 10060; 99284; 96375; 96365; 36415; 82962; 85025; 80053; 72193; J2270; J2405; J3490

== ENCOUNTER → 2018-08-11 | Outpatient (CLI) | payer OTHER ==
--- NOTE | 2018-08-11 17:18 | RADIOLOGY REPORT (SQ) ---
EXAM DESCRIPTION: CTA CHEST COMPLETED DATE/TIME: 08/11/2018 4:32 pm REASON FOR STUDY: I26.99 OTHER PULMONARY EMBOLISM WITHOUT ACUTE COR PULMONALE I26.99 OTHER PULMONAR Y EMBOLISM WITHOUT ACUTE COR PULMONALE R07.9 CHEST PAIN, UNSPECIFIED COMPARISON: 02/22/2019 TECHNIQUE: CT scan of the chest performed using helical scanning technique with dynamic intravenous contrast injection. Images reviewed with lung, soft tissue and bone windows. Reconstructed coronal and sagittal MPR images reviewed. Additional 3 dimensional post-processing performed to develop Maximal Intensity Projection images (PA P). All images stored on PACS. All CT scanners at this facility use dose modulation, iterative reconstruction, and/or weight based d osing when appropriate to reduce radiation dose to as low as reasonably achievable (ALARA). [facility]: Dose Right [facility]: CareDose [facility]: Dose Right [facility]: Teradose 4D [facility]: [employer] CONTRAST TYPE AND DOSE: contrast/concentration: Isovue mg/ml; Total Contrast Delivered: 83.0 ml; To esther Saline Delivered: 110.0 ml Contrast bolus optimized for the pulmonary arteries. Not diagnostic for the aorta. RENAL FUNCTION: GFR greater than 60 RADIATION DOSE: CT Rad equipment meets quality standard of care and radiation dose reduction techniq ues were employed. CTDIvol: 4.7 - 47.0 mGy. DLP: 625 mGy-cm. . LIMITATIONS: None. FINDINGS: LUNGS AND PLEURA: No masses, infiltrates, or pneumothorax. No pleural effusions or pleura l calcifications. AORTA AND GREAT VESSELS: No aneurysm. Contrast bolus not optimized for the aorta. HEART: No pericardial effusion. No significant coronary artery calcifications. PULMONARY ARTERIES: No emboli visualized in the main pulmonary arteries or the segmental branches. HILAR AND MEDIASTINAL STRUCTURES: No identified masses or abnormal nodes. HARDWARE: None in the chest. UPPER ABDOMEN: No significant findings. Limited exam. THYROID AND OTHER SOFT TISSUES: No masses. No adenopathy. BONES: No acute or significant finding. 3D MIPS: Confirm above findings. OTHER: No other significant finding. IMPRESSION: NORMAL CTA OF THE CHEST. NO PULMONARY EMBOLI. COMMENT: Quality ID # 436: Final reports with documentation of one or more dose reduction techniques (e.g., Automated exposure control, adjustment of the mA and/or kV according to patient size, use of iterative reconstruction technique) TECHNICAL DOCUMENTATION: JOB ID: [id number] [employer]- All Rights Reserved Reading location - IP/workstation name: [email or web address]
== END ==
LOC: RAD 15:00
PROVIDERS: ATTEND Internal Medicine Cardiovascular Disease
DX: I26.99 Other pulmonary embolism without acute cor pulmonale (principal); R07.9 Chest pain, unspecified
CPT/HCPCS: 71275

== ENCOUNTER 2018-08-30 10:37 | Observation (INO) | payer OTHER ==
--- NOTE | 2018-08-30 11:36 | RADIOLOGY REPORT (SQ) ---
EXAM DESCRIPTION: CHEST SINGLE VIEW COMPLETED DATE/TIME: 08/30/2018 11:26 am REASON FOR STUDY: sob COMPARISON: None. EXAM PARAMETERS: NUMBER OF VIEWS: One view. TECHNIQUE: Single frontal radiographic view of the chest acquired. RADIATION DOSE: NA LIMITATIONS: None. FINDINGS: LUNGS AND PLEURA: No opacities, masses or pneumothorax. No pleural effusion. MEDIASTINUM AND HILAR STRUCTURES: No masses. Contour normal. HEART AND VASCULAR STRUCTURES: Heart normal in size. Normal vasculature. BONES: No acute findings. HARDWARE: None in the chest. OTHER: No other significant finding. IMPRESSION: NO ACUTE RADIOGRAPHIC FINDING IN THE CHEST. TECHNICAL DOCUMENTATION: JOB ID: [id number] [employer]- All Rights Reserved Reading location - IP/workstation name: [email or web address]
[2018-08-30 11:38] LABS: ABSOLUTE EOSINOPHILS # (AUTO) 0.1 10^3/uL (0.0-0.6); ABSOLUTE LYMPHOCYTES (AUTO) 2.1 10^3/uL (0.5-4.7); ABSOLUTE MONOCYTES (AUTO) 0.8 10^3/uL (0.1-1.4); ABSOLUTE NEUT (AUTO) 6.1 10^3/uL (1.7-8.2); BASOPHILS % (AUTO) 0.4 % (0-2); EOSINOPHILS % (AUTO) 1.2 % (0-6); HEMATOCRIT 36.5 % (36.0-47.0); HEMOGLOBIN 11.9 g/dL (12.0-15.5); LYMPHOCYTES % (AUTO) 23.2 % (13-45); MEAN CORPUSCULAR HEMOGLOBIN 24.7 pg (27.0-33.4); MEAN CORPUSCULAR HGB CONC 32.6 g/dL (32.0-36.0); MEAN CORPUSCULAR VOLUME 76 fl (80-97); MONOCYTES % (AUTO) 8.8 % (3-13); PLATELET COUNT 224 10^3/uL (150-450); RED BLOOD COUNT 4.82 10^6/uL (3.72-5.28); RED CELL DISTRIBUTION WIDTH 15.3 % (11.5-14.0); SEGMENTED NEUTROPHILS % (AUTO) 66.4 % (42-78); TOTAL CELLS COUNTED % (AUTO) 100 %; WHITE BLOOD COUNT 9.2 10^3/uL (4.0-10.5)
[2018-08-30 11:42] LABS: VENOUS BLOOD BASE EXCESS -0.7 mmol/L; VENOUS BLOOD HCO3 21.4 mmol/L (20-32); VENOUS BLOOD PCO2 27.8 mmHg (35-63); VENOUS BLOOD PH 7.5 (7.30-7.42)
[2018-08-30 11:47] LABS: INTERNATIONAL RATION (INR) 1.07; PROTHROMBIN TIME 14.5 SEC (11.4-15.4)
[2018-08-30] MEDS ORDERED: METHYLPREDNISOLONE INJ 125 MG/2 ML SDV IV ONE (11:53)
[2018-08-30] MEDS ORDERED: IPRATROPIUM/ALBUTEROL 0.5-2.5 MG/3 ML AMPUL NEB ONE ×2 (11:53→12:37)
[2018-08-30 12:04] LABS: ALANINE AMINOTRANSFERASE 22 U/L (9-52); ALBUMIN 3.6 g/dL (3.5-5.0); ALKALINE PHOSPHATASE 58 U/L (38-126); ANION GAP 9 (5-19); ASPARTATE AMINO TRANSFERASE 13 U/L (14-36); BILIRUBIN,DIRECT 0.2 mg/dL (0.0-0.4); BILIRUBIN,TOTAL 0.6 mg/dL (0.2-1.3); BLOOD UREA NITROGEN 12 mg/dL (7-20); CALCIUM 8.8 mg/dL (8.4-10.2); CARBON DIOXIDE 24 mmol/L (22-30); CHLORIDE 104 mmol/L (98-107); GLUCOSE 190 mg/dL (75-110); POTASSIUM 3.9 mmol/L (3.6-5.0); SODIUM 137.1 mmol/L (137-145); TOTAL PROTEIN 6.4 g/dL (6.3-8.2)
--- NOTE | 2018-08-30 12:08 | ER Document Report ---
ED Respiratory Problem - General Chief Complaint: Respiratory Distress Stated Complaint: RESPIRATORY DISTRESS Time Seen by Provider: 08/30/18 11:39 Notes: Patient is a 37-year-old female with a history of hypertension, COPD, congestive heart failure, atrial fib, type 2 diabetes, cardiomyopathy, and sleep apnea who presents to the emergency department with a chief complaint of shortness of breath. Patient states that last night she developed some shortness of breath that continued to get worse throughout the night. Patient reports using her Symbicort, albuterol rescue inhaler, DuoNeb and albuterol nebulizer with minimal relief initially. Patient states she did call EMS this morning due to the worsening of shortness of breath and chest pressure. Patient states she is also had a dry cough. Patient states she did vomit once during a coughing spell. Patient reports chills. Patient states she is having urinary frequency and does have a history of UTIs but is unsure if this is related to an infection or the use of diuretics. Patient states last time she was admitted to the hospital was in April of this year. Patient states she also developed chest pressure throughout the night. Patient states his pressure is nonradiating and feels like a tightness. TRAVEL OUTSIDE OF THE [place] IN LAST 30 DAYS: No - Related Data Allergies/Adverse Reactions: amoxicillin [Amoxicillin] Allergy (Severe, Verified 07/11/18 21:16) Anaphylaxis Penicillins Allergy (Severe, Verified 07/11/18 21:16) Anaphylaxis Bees/Wasp Allergy (Severe, Uncoded 07/11/18 21:16) Anaphylaxis Past Medical History - General Information source: Patient - Social History Smoking Status: Unknown if Ever Smoked Cigarette use (# per day): No Chew tobacco use (# tins/day): No Frequency of alcohol use: None Drug Abuse: None Lives with: Family Family History: Reviewed & Not Pertinent, CAD, DM, Hypertension, Malignancy Patient has suicidal ideation: No Patient has homicidal ideation: No - Past Medical History Cardiac Medical History: Reports: Hx Atrial Fibrillation, Hx Congestive Heart Failure, Hx Hypercholesterolemia, Hx Hypertension Denies: Hx Coronary Artery Disease, Hx Heart Attack Pulmonary Medical History: Reports: Hx Asthma - SEVERE, Hx Bronchitis, Hx COPD, Hx Pneumonia EENT Medical History: Reports: None Neurological Medical History: Reports: None. Denies: Hx Cerebrovascular Accident, Hx Seizures Endocrine Medical History: Reports: Hx Diabetes Mellitus Type 1, Hx Diabetes Mellitus Type 2 - insulin dependent Renal/ Medical History: Reports: Hx Kidney Stones. Denies: Hx Peritoneal Dialysis Malignancy Medical History: Reports: None GI Medical History: Reports: None. Denies: Hx Cirrhosis, Hx Crohn's Disease, Hx Hepatitis Musculoskeletal Medical History: Reports None, Denies Hx Arthritis Skin Medical History: Reports None Psychiatric Medical History: Reports: Hx Anxiety, Hx Bipolar Disorder, Hx Depression Infectious Medical History: Denies: Hx Hepatitis Past Surgical History: Reports: Hx Abdominal Surgery - hernia, Hx Cardiac Catheterization, Hx Cholecystectomy, Hx Herniorrhaphy, Hx Umbilical Hernia - Immunizations Immunizations up to date: No Hx Diphtheria, Pertussis, Tetanus Vaccination: Yes Hx Pneumococcal Vaccination: 11/12/17 Review of Systems - Review of Systems Constitutional: See HPI EENT: No symptoms reported Cardiovascular: See HPI Gastrointestinal: See HPI Genitourinary: See HPI Female Genitourinary: No symptoms reported Musculoskeletal: No symptoms reported Skin: No symptoms reported Hematologic/Lymphatic: No symptoms reported Neurological/Psychological: No symptoms reported Physical Exam - Vital signs Vitals: Temp Pulse Resp BP Pulse Ox 99 F 104 H 40 H 149/86 H 92 08/30/18 10:44 08/30/18 10:44 08/30/18 10:44 08/30/18 10:44 08/30/18 10:44 Interpretation: Hypertensive, Tachycardic, Tachypneic - Notes Notes: GENERAL: Ill-appearing, well-nourished and in mild distress. Is on bipap and tolerating fairly well. HEAD: Atraumatic, normocephalic. EYES: Pupils equal round and reactive to light, extraocular movements intact, sclera anicteric, conjunctiva are normal. ENT: TMs normal, nares patent, oropharynx clear without exudates. Moist mucous membranes. NECK: Normal range of motion, supple without lymphadenopathy or JVD. LUNGS: Tachypneic, expiratory wheezing noted throughout all lung adams, dry cough during examination. HEART: Tachycardiac rate with regular rhythm without murmurs, rubs or gallops. ABDOMEN: Soft, obese, nontender, normoactive bowel sounds. No guarding, no rebound. No masses appreciated. BACK: No cervical, thoracic, lumbar midline tenderness. No saddle anesthesia, normal distal neurovascular exam. GENITOURINARY: Deferred. EXTREMITIES: Normal range of motion, no pitting or edema. No clubbing or cyanosis. NEUROLOGICAL: Cranial nerves II through XII grossly intact. Normal speech, normal gait. PSYCH: Normal mood, normal affect. SKIN: Warm, Dry, normal turgor, no rashes or lesions noted. Course - Re-evaluation Re-evalutation: 08/30/18 12:06 On initial examination patient is laying in the left lateral position and is on bipap. Patient states that the BiPAP has helped with her symptoms although she remains short of breath. Patient is tachypneic with a respiratory rate of 38- 40. Patient is able to answer questions appropriately. Patient states that last time she was admitted for the shortness of breath was in April. We will continue BiPAP and add DuoNeb, IV steroids, IV magnesium. She is 100% on BiPAP. Heart rate is 94. We will continue to monitor closely. 08/30/18 12:37 Upon reevaluation patient has completed the IV mag and first DuoNeb. Patient continues to have expiratory wheezing throughout as well as rhonchi and rales. Will give another DuoNeb and reevaluate. Patient remains tachypneic. 08/30/18 13:19 Patient remains tachypneic but shortness of breath has improved. Patient's respiratory rate is 30. Patient states that her chest discomfort has gotten worse. Will order a dose of morphine for her discomfort and reevaluate. Patient temperature 99.1. Patient did report having a 104 fever prior to calling EMS in which she did take Tylenol for. Patient did have a negative lactate and there is no leukocytosis noted on her blood work. 08/30/18 13:55 I did discuss the case with my supervising physician Dr. Goyal. Due to elevated BNP and history of congestive heart failure we will go ahead and give a dose of IV Lasix. Patient does take 20 mg of Lasix daily and did not have her dose this morning. I did speak with Dr. Foote who agrees to admit as the nurse practitioner Charlene Leavitt will come and evaluate the patient. 08/30/18 14:49 Patient remains in the emergency department while waiting for a bed upstairs. Patient is resting more comfortably with the BiPAP and is less tachypneic with a respiratory rate of 28. Patient states she did attempt to use the restroom a while off the mask and became labored and had difficulty breathing. Patient states she feels much better after receiving Reglan for her nausea. Patient has been able to tolerate sips of water. - Vital Signs Vital signs: Temp Pulse Resp BP Pulse Ox 99 F 104 H 18 164/115 H 100 08/30/18 10:44 08/30/18 10:44 08/30/18 14:01 08/30/18 14:01 08/30/18 14:01 - Laboratory Result Diagrams: 08/30/18 11:15 08/30/18 11:15 Laboratory results interpreted by me: 08/30/18 08/30/18 08/30/18 11:15 11:15 11:15 Hgb 11.9 L MCV 76 L MCH 24.7 L RDW 15.3 H VBG pH 7.50 H VBG pCO2 27.8 L Glucose 190 H AST 13 L NT-Pro-B Natriuret Pep Urine Glucose (UA) 08/30/18 08/30/18 11:15 12:00 Hgb MCV MCH RDW VBG pH VBG pCO2 Glucose AST NT-Pro-B Natriuret Pep 2000 H Urine Glucose (UA) 50 H - Diagnostic Test Radiology reviewed: Reports reviewed Radiology results interpreted by me: 08/30/18 12:08 Chest x-ray unremarkable. - EKG Interpretation by Me Additional EKG results interpreted by me: 08/30/18 12:09 Patient's EKG shows a sinus tachycardia with a rate of 100. Patient's ND interval is 140, QT is 400 and QTC is 516. Patient does have a prolonged QT interval. Patient has a normal axis deviation. There is no ST segment changes in consecutive leads. Discharge - Discharge Clinical Impression: Tachypnea, Shortness of breath, Chest pressure, Morbid obesity, COPD exacerbation, Chills, Hypertension Congestive heart failure Qualifiers: Heart failure type: unspecified Heart failure chronicity: chronic Qualified Code(s): I50.9 - Heart failure, unspecified Condition: Stable Disposition: ADMITTED OBSERVATION Admitting Provider: Dary (Hospitalist) Unit Admitted: [facility]
[2018-08-30] MEDS: MAGNESIUM SULFATE/D5W 1 GM/100 ML RTUPB IV SCH (12:12)
[2018-08-30 12:32] LABS: APPEARANCE,URINE SLIGHTLY-CLOUDY; BILIRUBIN,URINE NEGATIVE (NEGATIVE); COLOR,URINE YELLOW; GLUCOSE, URINE 50 mg/dL (NEGATIVE); KETONES,URINE NEGATIVE (NEGATIVE); LEUKOCYTE ESTERASE,URINE NEGATIVE (NEGATIVE); NITRITE,URINE NEGATIVE (NEGATIVE); PROTEIN,URINE NEGATIVE (NEGATIVE); URINE SPECIFIC GRAVITY 1.017; UROBILINOGEN,URINE NEGATIVE mg/dL (<2.0)
[2018-08-30 12:52] LABS: TROPONIN I 0.024 ng/mL
[2018-08-30] MEDS ORDERED: MORPHINE SULFATE 10 MG/ML INJ IV ONE (13:30)
[2018-08-30] MEDS ORDERED: FUROSEMIDE INJ/PF 20 MG/2 ML SDV IV ONE (13:56)
[2018-08-30] MEDS ORDERED: METOCLOPRAMIDE HCL INJ/PF 10 MG/2 ML SDV IV ONE (14:17)
[2018-08-30] MEDS ORDERED: ACETAMINOPHEN 325 MG TABLET PO PRN (15:21)
[2018-08-30] MEDS ORDERED: LEVALBUTEROL HCL NEB 1.25 MG/3 ML AMPUL NEB PRN (15:21)
[2018-08-30] MEDS ORDERED: GUAIFENESIN SYRP 200 MG/10 ML UDC PO PRN (15:21)
[2018-08-30] MEDS ORDERED: DEXTROSE 50%-WATER 25 GM/50 ML DISP.SYRIN IV PRN ×2 (15:30)
[2018-08-30] MEDS ORDERED: DEXTROSE 40% GEL 15 GM TUBE PO PRN ×2 (15:30)
[2018-08-30] MEDS ORDERED: GLUCAGON,HUMAN RECOMB 1 MG INJ IM PRN (15:30)
--- NOTE | 2018-08-30 15:53 | PDOC H&P ---
History of Present Illness Admission Date/PCP: 08/30/18 14:09 [facility] Patient complains of: Dyspnea History of Present Illness: DAYTON MENDOZA is a 37 year old female with past medical history significant for chronic diastolic CHF, COPD, chronic respiratory failure (oxygen dependent on home), uncontrolled diabetes mellitus, hypertension, hyperlipidemia, morbid obesity, TAMEKA, and tobacco dependence who presented to the emergency department with a complaint of 1 day of rapidly worsening dyspnea; now at rest, associated with a productive cough, generalized malaise, headache, and fever. Patient reports fever of 104 at home prior to arrival in the emergency department. She is noted to have a T-max of 99.1 while in the emergency department although patient reports that she took Tylenol prior to presenting to the ED. She endorses left chest wall discomfort; worsened with deep breaths and cough described as tight and sharp, nonradiating and not associated with any other symptoms. Evaluation in the emergency department was overall unremarkable other than vital signs that demonstrated Tachycardia (HR 100) and tachypnea (RR 43) currently B iPAP dependent secondary to respiratory distress with accessory muscle use. Laboratory evaluation revealed her baseline anemia (hemoglobin 11.9), normal coags, unremarkable chemistry, troponin 0 0.024 and an elevated proBNP to 2000 with baseline of 700. Urinalysis is negative. EKG demonstrated sinus tachycardia. Chest x-ray was negative for acute processes. She was provided nebulizer treatments, placed on BiPAP, IV Solu-Medrol and referred to the hospitalist service for admission and management of acute respiratory failure secondary to COPD exacerbation, CHF exacerbation, and probable underlying pneumonia given patient's fever and productive cough. Past Medical History Cardiac Medical History: Reports: Atrial Fibrillation, Congestive Heart Failure, Hyperlipidema, Hypertension Denies: Coronary Artery Disease, Myocardial Infarction Pulmonary Medical History: Reports: Asthma, Bronchitis, Chronic Obstructive Pulmonary Disease (COPD), Pneumonia, Respiratory Failure - chronic EENT Medical History: Reports: None Neurological Medical History: Reports: None Denies: Seizures Endocrine Medical History: Reports: Diabetes Mellitus Type 2 - insulin dependent Renal/ Medical History: Reports: None Malignancy Medical History: Reports: None GI Medical History: Reports: None Denies: Cirrhosis, Crohn's Disease, Hepatitis Musculoskeltal Medical History: Reports: None Denies: Arthritis Skin Medical History: Reports: None Psychiatric Medical History: Reports: Bipolar Disorder, Depression, Tobacco De pendency Hematology: Reports: Anemia Infectious Medical History: Reports: None Past Surgical History Past Surgical History: Reports: Cardiac Catheterization, Cholecystectomy, Herniorrhaphy Social History Information Source: Patient Lives with: Family Smoking Status: Current Every Day Smoker Cigarettes Packs Per Day: 0.2 Frequency of Alcohol Use: Occasional Hx Recreational Drug Use: No Drugs: None Hx Prescription Drug Abuse: No - Advance Directive Resuscitation Status: Full Code Family History Family History: Reviewed & Not Pertinent, CAD, DM, Hypertension, Malignancy Parental Family History Reviewed: Yes Children Family History Reviewed: Yes Sibling(s) Family History Reviewed.: Yes Medication/Allergy Home Medications: Albuterol Sulfate [Proair HFA Inhalation Aerosol 8.5 gm MDI] 2 puff IH Q4HP PRN 08/30/18 Budesonide/Formoterol Fumarate [Symbicort HFA 160-4.5 mcg Inhaler 6 gm] 1 puff I H DAILY 08/30/18 Carvedilol [Coreg 6.25 mg Tablet] 6.25 mg PO Q12 08/30/18 Furosemide [Lasix 20 mg Tablet] 20 mg PO DAILY 08/30/18 Gabapentin [Neurontin] 600 mg PO Q12 08/30/18 Glipizide [Glucotrol] 10 mg PO BID 08/30/18 Insulin Glargine,Hum.rec.anlog [Lantus Insulin 100 Unit/1 ml 10 ml] 60 units SQ QPM 08/30/18 Isosorbide Mononitrate [Imdur 30 mg Tablet.er] 30 mg PO DAILY 08/30/18 Loratadine [Claritin 10 mg Tablet] 10 mg PO DAILY 08/30/18 Metformin HCl [Glucophage] 1,000 mg PO BID 08/30/18 Sacubitril/Valsartan [Entresto 49 mg/51 mg Tablet] 1 tab PO BID 08/30/18 Tiotropium Umbarger [Spiriva Respimat] 1 puff IH BID 08/30/18 Allergies/Adverse Reactions: amoxicillin [Amoxicillin] Allergy (Severe, Verified 07/11/18 21:16) Anaphylaxis Penicillins Allergy (Severe, Verified 07/11/18 21:16) Anaphylaxis Bees/Wasp Allergy (Severe, Uncoded 07/11/18 21:16) Anaphylaxis Review of Systems Constitutional: PRESENT: fatigue, fever(s), headache(s). ABSENT: chills, weight gain, weight loss Eyes: ABSENT: visual disturbances Ears: ABSENT: hearing changes Cardiovascular: ABSENT: chest pain, dyspnea on exertion, edema, orthropnea, palpitations Respiratory: PRESENT: cough, dyspnea, sputum. ABSENT: hemoptysis Gastrointestinal: ABSENT: abdominal pain, constipation, diarrhea, hematemesis, hematochezia, nausea, vomiting Genitourinary: ABSENT: dysuria, hematuria Musculoskeletal: ABSENT: joint swelling Integumentary: ABSENT: rash, wounds Neurological: ABSENT: abnormal gait, abnormal speech, confusion, dizziness, focal weakness, syncope Psychiatric: ABSENT: anxiety, depression, homidical ideation, suicidal ideation Endocrine: ABSENT: cold intolerance, heat intolerance, polydipsia, polyuria Hematologic/Lymphatic: ABSENT: easy bleeding, easy bruising Physical Exam Vital Signs: Temp Pulse Resp BP Pulse Ox 99 F 104 H 17 140/87 H 100 08/30/18 10:44 08/30/18 10:44 08/30/18 15:00 08/30/18 14:40 08/30/18 15:00 Intake & Output 08/29/18 08/30/18 08/31/18 06:59 06:59 06:59 Intake Total 100 Balance 100 Weight 142.882 kg General appearance: PRESENT: cooperative, mild distress, morbidly obese, well- developed, well-nourished Head exam: PRESENT: atraumatic, normocephalic Eye exam: PRESENT: conjunctiva pink, EOMI, PERRLA. ABSENT: scleral icterus Ear exam: PRESENT: normal external ear exam Mouth exam: PRESENT: moist, tongue midline Neck exam: ABSENT: carotid bruit, JVD, lymphadenopathy, thyromegaly Respiratory exam: PRESENT: accessory muscle use, prolonged expiratory phas, rhonchi - throughout, symmetrical, tachypnea, other - BiPap dependent. ABSENT: rales, wheezes Cardiovascular exam: PRESENT: RRR, +S1, +S2. ABSENT: diastolic murmur, rubs, systolic murmur Pulses: PRESENT: normal dorsalis pedis pul Vascular exam: PRESENT: normal capillary refill GI/Abdominal exam: PRESENT: normal bowel sounds, soft. ABSENT: distended, g uarding, mass, organolmegaly, rebound, tenderness Rectal exam: PRESENT: deferred Extremities exam: PRESENT: full ROM. ABSENT: calf tenderness, clubbing, pedal edema Neurological exam: PRESENT: alert, awake, oriented to person, oriented to place, oriented to time, oriented to situation, CN II-XII grossly intact. ABSENT: mo tor sensory deficit Psychiatric exam: PRESENT: appropriate affect, normal mood. ABSENT: homicidal ideation, suicidal ideation Skin exam: PRESENT: dry, intact, warm. ABSENT: cyanosis, rash Results Laboratory Results: 08/30/18 11:15 08/30/18 11:15 08/30/18 08/30/18 08/30/18 11:15 11:15 11:15 WBC 9.2 RBC 4.82 Hgb 11.9 L Hct 36.5 MCV 76 L MCH 24.7 L MCHC 32.6 RDW 15.3 H Plt Count 224 Seg Neutrophils % 66.4 Lymphocytes % 23.2 Monocytes % 8.8 Eosinophils % 1.2 Basophils % 0.4 Absolute Neutrophils 6.1 Absolute Lymphocytes 2.1 Absolute Monocytes 0.8 Absolute Eosinophils 0.1 Absolute Basophils 0.0 VBG pH VBG pCO2 VBG HCO3 VBG Base Excess Sodium 137.1 Potassium 3.9 Chloride 104 Carbon Dioxide 24 Anion Gap 9 BUN 12 Creatinine 0.66 Est GFR ( Amer) > 60 Est GFR (Non-Af Amer) > 60 Glucose 190 H Lactic Acid 1.7 Calcium 8.8 Total Bilirubin 0.6 AST 13 L ALT 22 Alkaline Phosphatase 58 Total Protein 6.4 Albumin 3.6 Urine Color Urine Appearance Urine pH Ur Specific Searchlight Urine Protein Urine Glucose (UA) Urine Ketones Urine Blood Urine Nitrite Ur Leukocyte Esterase Urine WBC (Auto) Urine RBC (Auto) 08/30/18 08/30/18 11:15 12:00 WBC RBC Hgb Hct MCV MCH MCHC RDW Plt Count Seg Neutrophils % Lymphocytes % Monocytes % Eosinophils % Basophils % Absolute Neutrophils Absolute Lymphocytes Absolute Monocytes Absolute Eosinophils Absolute Basophils VBG pH 7.50 H VBG pCO2 27.8 L VBG HCO3 21.4 VBG Base Excess -0.7 Sodium Potassium Chloride Carbon Dioxide Anion Gap BUN Creatinine Est GFR ( Amer) Est GFR (Non-Af Amer) Glucose Lactic Acid Calcium Total Bilirubin AST ALT Alkaline Phosphatase Total Protein Albumin Urine Color YELLOW Urine Appearance SLIGHTLY-CLOUDY Urine pH 6.0 Ur Specific Searchlight 1.017 Urine Protein NEGATIVE Urine Glucose (UA) 50 H Urine Ketones NEGATIVE Urine Blood NEGATIVE Urine Nitrite NEGATIVE Ur Leukocyte Esterase NEGATIVE Urine WBC (Auto) 1 Urine RBC (Auto) 0 08/30/18 11:15 Troponin I 0.024 NT-Pro-B Natriuret Pep 2000 H Impressions: Chest X-Ray 08/30/18 10:42 IMPRESSION: NO ACUTE RADIOGRAPHIC FINDING IN THE CHEST. Assessment and Plan - Diagnosis (1) Acute and chronic respiratory failure with hypoxia Is this a current diagnosis for this admission?: Yes Plan: Patient presented in acute respiratory distress with tachycardia, tachypnea, and hypoxia on her baseline oxygen requirement of 3 L/min via nasal cannula. She was provided nebulizer treatments and IV Solu-Medrol by EMS. Chest x-ray is benign. Unclear etiology; CHF exacerbation versus COPD versus developing pneumonia. Blood and sputum cultures are pending. She is admitted [facility] on continuous cardiac telemetry. We will continue supplemental oxygen and BiPAP as needed to maintain saturations greater than 89%. Scheduled as needed nebulizer treatments. Given the patient's report of productive cough and fever of 104; she is empirically treated for community-acquired pneumonia with IV Levaquin. Continue p.o. prednisone. Mucinex twice daily. Incentive spirometer and flutter valve when off BiPAP. (2) COPD exacerbation Is this a current diagnosis for this admission?: Yes Plan: Management as above. (3) Hypertension Qualifiers: Hypertension type: essential hypertension Is this a current diagnosis for this admission?: Yes Plan: Patient endorses a history of hypertension. Cardiac diet. Continue home dose carvedilol, isosorbide, Entresto (4) Chronic diastolic CHF (congestive heart failure) Is this a current diagnosis for this admission?: Yes Plan: Chest x-ray is benign. proBNP is elevated to 2000; appears baseline is approximately 700. Although must be reviewed in consideration of her morbid obesity. Echocardiogram May 2015 demonstrated LVEF 55% with mild diastolic dysfunction, mild concentric LVH. Echocardiogram May 2018 demonstrated normal coronaries, no evidence of valvular heart disease, and elevated left ventricular end-diastolic pressure. She is placed on a cardiac diet. She is already been provided IV furosemide 20 mg x 1 by ED provider; we will continue her home dose furosemide beginning tomorrow. Continue her outpatient regiment of carvedilol, Imdur, Entresto. Daily weights and strict I&O's. (5) Insulin dependent type 2 diabetes mellitus, uncontrolled Is this a current diagnosis for this admission?: Yes Plan: Patient was placed on a cardiac/consistent carb diet. Continue home dose Lantus. Accu-Cheks before meals and at bedtime with Humalog for sliding scale coverage. We will hold her home dose metformin and glipizide while inpatient. Hypoglycemia protocol placed (6) Tobacco dependence Is this a current diagnosis for this admission?: Yes Plan: Smoking cessation strongly encouraged; nicotine replacement therapies are offered and declined at this time. Patient reports that she smokes only 2 to 3 cigarettes daily. (7) Morbid obesity Is this a current diagnosis for this admission?: Yes Plan: Dietary discretion and lifestyle modifications are strongly encouraged. (8) TAMEKA (obstructive sleep apnea) Is this a current diagnosis for this admission?: Yes Plan: BiPAP - Time Time Spent with patient: 35 or more minutes Medications reviewed and adjusted accordingly: Yes Anticipated discharge: Home Within: within 48 hours
[2018-08-30] MEDS: INSULIN LISPRO 100 UNIT/ML 3 ML VIAL SUBCUT SCH ×2 (16:35→22:02)
[2018-08-30] MEDS ORDERED: INSULIN GLARGINE,HUM.REC.ANLOG 1,000 UNIT/10 ML VIAL (PYX) SUBCUT SCH (18:00)
[2018-08-30] MEDS ORDERED: INSULIN GLARGINE,HUM.REC.ANLOG 1,000 UNIT/10 ML VIAL SUBCUT SCH ×3 (18:00→22:00)
[2018-08-30] MEDS: SACUBITRIL/VALSARTAN 49 MG/51 MG TABLET PO SCH (18:49)
[2018-08-30] MEDS: IPRATROPIUM/ALBUTEROL 0.5-2.5 MG/3 ML AMPUL NEB SCH (20:19)
--- NOTE | 2018-08-30 20:44 | EKG REPORT ---
SEVERITY:- ABNORMAL ECG - SINUS TACHYCARDIA ABNORMAL Q SUGGESTS ANTERIOR INFARCT PROLONGED QT INTERVAL : Confirmed by: Heaven Marshall MD 30-Aug-2018 20:42:42
[2018-08-30] MEDS: HEPARIN SOD (PORCINE) 5,000 UNIT/ML 1 ML SYRINGE SUBCUT SCH (21:28)
[2018-08-30] MEDS: GUAIFENESIN 600 MG TABLET.SA PO SCH (21:29)
[2018-08-30] MEDS: GABAPENTIN 300 MG CAPSULE PO SCH (21:29)
[2018-08-30] MEDS: FAMOTIDINE 20 MG TABLET PO SCH (21:29)
[2018-08-30] MEDS: CARVEDILOL 6.25 MG TABLET PO SCH (21:29)
[2018-08-30] MEDS: KETOROLAC TROMETHAMINE INJ/PF 30 MG/1 ML SDV IV PRN (21:39)
[2018-08-30] MEDS ORDERED: LIDOCAINE 5% (700 MG) TRANSDERMAL ADH..PATCH TP SCH (22:00)
[2018-08-31] MEDS: IPRATROPIUM/ALBUTEROL 0.5-2.5 MG/3 ML AMPUL NEB SCH ×3 (02:13→14:04)
[2018-08-31] MEDS: HEPARIN SOD (PORCINE) 5,000 UNIT/ML 1 ML SYRINGE SUBCUT SCH (05:18)
[2018-08-31 06:34] LABS: BASOPHILS % (AUTO) 0.2 % (0-2); HEMOGLOBIN 11.7 g/dL (12.0-15.5); LYMPHOCYTES % (AUTO) 9.9 % (13-45); MEAN CORPUSCULAR HEMOGLOBIN 25.1 pg (27.0-33.4); MEAN CORPUSCULAR HGB CONC 33.4 g/dL (32.0-36.0); MEAN CORPUSCULAR VOLUME 75 fl (80-97); MONOCYTES % (AUTO) 10.2 % (3-13); PLATELET COUNT 240 10^3/uL (150-450); RED BLOOD COUNT 4.64 10^6/uL (3.72-5.28); SEGMENTED NEUTROPHILS % (AUTO) 79.7 % (42-78); TOTAL CELLS COUNTED % (AUTO) 100 %; WHITE BLOOD COUNT 10.1 10^3/uL (4.0-10.5)
[2018-08-31 06:51] LABS: ANION GAP 10 (5-19); BLOOD UREA NITROGEN 15 mg/dL (7-20); CALCIUM 8.3 mg/dL (8.4-10.2); CARBON DIOXIDE 23 mmol/L (22-30); CHLORIDE 102 mmol/L (98-107); GLUCOSE 265 mg/dL (75-110); POTASSIUM 4.6 mmol/L (3.6-5.0); SODIUM 134.9 mmol/L (137-145)
[2018-08-31] MEDS: KETOROLAC TROMETHAMINE INJ/PF 30 MG/1 ML SDV IV PRN (07:33)
[2018-08-31] MEDS: INSULIN LISPRO 100 UNIT/ML 3 ML VIAL SUBCUT SCH ×2 (07:34→12:16)
[2018-08-31] MEDS: GUAIFENESIN 600 MG TABLET.SA PO SCH (09:27)
[2018-08-31] MEDS: CARVEDILOL 6.25 MG TABLET PO SCH (09:27)
[2018-08-31] MEDS: GABAPENTIN 300 MG CAPSULE PO SCH (09:27)
[2018-08-31] MEDS: FAMOTIDINE 20 MG TABLET PO SCH (09:27)
[2018-08-31] MEDS: SACUBITRIL/VALSARTAN 49 MG/51 MG TABLET PO SCH (09:30)
[2018-08-31] MEDS ORDERED: LEVOFLOXACIN 750 MG/D5W RTU 750 MG/150 ML RTUPB IV SCH (10:00)
[2018-08-31] MEDS ORDERED: PREDNISONE 20 MG TABLET PO SCH (10:00)
[2018-08-31] MEDS ORDERED: LORATADINE 10 MG TABLET PO SCH (10:00)
[2018-08-31] MEDS ORDERED: ISOSORBIDE MONONITRATE 30 MG TAB.ER.24H PO SCH (10:00)
[2018-08-31] MEDS ORDERED: FUROSEMIDE 20 MG TABLET PO SCH (10:00)
[2018-08-31 14:25] VITALS: BP 145/102
--- NOTE | 2018-09-01 20:51 | PDOC DISCHARGE SUMMARY ---
General - Admit/Disc Date/PCP Admission Date/Primary Care Provider: 08/30/18 14:09 [facility] Discharge Date: 08/31/18 - Discharge Diagnosis (1) Acute and chronic respiratory failure with hypoxia Is this a current diagnosis for this admission?: Yes Summary: Acute exacerbation is resolved. Now ambulatory on her baseline oxygen requirement. Keep scheduled appointment with the [facility]. (2) COPD exacerbation Is this a current diagnosis for this admission?: Yes Summary: Improved. She was admitted [facility] on continuous cardiac telemetry and supported with supplemental oxygen and BiPAP. She has not required BiPAP for >12 horus. She was provided scheduled as needed nebulizer treatments, started on p.o. prednisone and twice daily mucinex. Given the patient's report of productive cough and fever of 104; she was empirically treated for community-acquired pneumonia with IV Levaquin. Pulmonary toilet encouraged with use of Incentive spirometer and flutter valve. (3) Hypertension Is this a current diagnosis for this admission?: Yes Summary: Patient endorses a history of hypertension. Recommend continuing Cardiac diet and home dose carvedilol, isosorbide, Entresto (4) Chronic diastolic CHF (congestive heart failure) Is this a current diagnosis for this admission?: Yes Summary: Chest x-ray is benign. proBNP is elevated to 2000; appears baseline is approximately 700. Although must be reviewed in consideration of her morbid obesity. Echocardiogram May 2015 demonstrated LVEF 55% with mild diastolic dysfunction, mild concentric LVH. Echocardiogram May 2018 demonstrated normal coronaries, no evidence of valvular heart disease, and elevated left ventricular end-diastolic pressure. She is placed on a cardiac diet. She was provided IV furosemide 20 mg x 1 by ED provider (patient reported she had missed that day's dose). Her home dose furosemide was resumed the following day [day of discharge] and her outpatient regiment of carvedilol, Imdur, Entresto was continued. Recommend continued daily weights. Patient is encouraged to contact established reinforcing iron worker helper, notify them of admission, and follow up as directed. (5) Insulin dependent type 2 diabetes mellitus, uncontrolled Is this a current diagnosis for this admission?: Yes Summary: Home medication regiment is resumed at discharge. (6) Tobacco dependence Is this a current diagnosis for this admission?: Yes Summary: Smoking cessation strongly encouraged; nicotine replacement therapies are offered and declined at this time. Patient reports that she smokes only 2 to 3 cigarettes daily. (7) Morbid obesity Is this a current diagnosis for this admission?: Yes Summary: Dietary discretion and lifestyle modifications are strongly encouraged. (8) TAMEKA (obstructive sleep apnea) Is this a current diagnosis for this admission?: Yes Summary: Patient was provided BiPAP for use while admitted; to resume home CPAP machine at discharge. - Additional Information Resuscitation Status: Full Code Discharge Diet: As Tolerated Discharge Activity: Activity As Tolerated Prescriptions: Guaifenesin [Mucinex Sr 600 mg Tablet.sa] 600 mg PO Q12 #14 tablet.sa Lidocaine [Lidoderm 5% (700 mg) Transdermal Patch] 2 patch TP QHS #30 adh..patch Methocarbamol [Robaxin 500 mg Tablet] 500 mg PO BIDP PRN #10 tablet PRN Reason: Muscle Spasms Prednisone [Deltasone 20 mg Tablet] 60 mg PO DAILY #12 tablet Home Medications: Albuterol Sulfate [Proair HFA Inhalation Aerosol 8.5 gm MDI] 2 puff IH Q4HP PRN 08/30/18 Budesonide/Formoterol Fumarate [Symbicort HFA 160-4.5 mcg Inhaler 6 gm] 1 puff IH DAILY 08/30/18 Carvedilol [Coreg 6.25 mg Tablet] 6.25 mg PO Q12 08/30/18 Furosemide [Lasix 20 mg Tablet] 20 mg PO DAILY 08/30/18 Gabapentin [Neurontin] 600 mg PO Q12 08/30/18 Glipizide [Glucotrol] 10 mg PO BID 08/30/18 Insulin Glargine,Hum.rec.anlog [Lantus Insulin 100 Unit/1 ml 10 ml] 60 units SQ QPM 08/30/18 Isosorbide Mononitrate [Imdur 30 mg Tablet.er] 30 mg PO DAILY 08/30/18 Loratadine [Claritin 10 mg Tablet] 10 mg PO DAILY 08/30/18 Metformin HCl [Glucophage] 1,000 mg PO BID 08/30/18 Sacubitril/Valsartan [Entresto 49 mg/51 mg Tablet] 1 tab PO BID 08/30/18 Tiotropium Keyes [Spiriva Respimat] 1 puff IH BID 08/30/18 Acetaminophen [Tylenol 325 mg Tablet] 650 mg PO Q4HP PRN tablet 08/31/18 Guaifenesin [Mucinex Sr 600 mg Tablet.sa] 600 mg PO Q12 #14 tablet.sa 08/31/18 Lidocaine [Lidoderm 5% (700 mg) Transdermal Patch] 2 patch TP QHS #30 adh..patch 08/31/18 Methocarbamol [Robaxin 500 mg Tablet] 500 mg PO BIDP PRN #10 tablet 08/31/18 Prednisone [Deltasone 20 mg Tablet] 60 mg PO DAILY #12 tablet 08/31/18 History of Present Illness History of Present Illness: DAYTON MENDOZA is a 37 year old female with past medical history significant for chronic diastolic CHF, COPD, chronic respiratory failure (oxygen dependent on home), uncontrolled diabetes mellitus, hypertension, hyperlipidemia, morbid obesity, TAMEKA, and tobacco dependence who presented to the emergency department with a complaint of 1 day of rapidly worsening dyspnea; now at rest, associated with a productive cough, generalized malaise, headache, and fever. Patient reports fever of 104 at home prior to arrival in the emergency department. She is noted to have a T-max of 99.1 while in the emergency department although patient reports that she took Tylenol prior to presenting to the ED. She endorses left chest wall discomfort; worsened with deep breaths and cough described as tight and sharp, nonradiating and not associated with any other symptoms. Evaluation in the emergency department was overall unremarkable other than vital signs that demonstrated Tachycardia (HR 100) and tachypnea (RR 43) currently BiPAP dependent secondary to respiratory distress with accessory muscle use. Laboratory evaluation revealed her baseline anemia (hemoglobin 11.9), normal coags, unremarkable chemistry, troponin 0 0.024 and an elevated proBNP to 2000 with baseline of 700. Urinalysis is negative. EKG demonstrated sinus tachycardia. Chest x-ray was negative for acute processes. She was provided nebulizer treatments, placed on BiPAP, IV Solu-Medrol and referred to the hospitalist service for admission and management of acute respiratory failure secondary to COPD exacerbation, CHF exacerbation, and probable underlying pneumonia given patient's fever and productive cough. Physical Exam Vital Signs: Temp Pulse Resp BP Pulse Ox 97.8 F 76 17 145/102 H 96 08/31/18 14:24 08/31/18 14:24 08/31/18 14:24 08/31/18 14:24 08/31/18 14:24 Intake & Output 08/31/18 09/01/18 09/02/18 06:59 06:59 06:59 Intake Total 2646 1554 Output Total 0 Balance 2646 1554 Weight 146.5 kg General appearance: PRESENT: no acute distress, cooperative, morbidly obese, well-developed, well-nourished Head exam: PRESENT: atraumatic, normocephalic Eye exam: PRESENT: conjunctiva pink, EOMI, PERRLA. ABSENT: scleral icterus Ear exam: PRESENT: normal external ear exam Mouth exam: PRESENT: moist, tongue midline Neck exam: ABSENT: carotid bruit, JVD, lymphadenopathy, thyromegaly Respiratory exam: PRESENT: clear to auscultation russell, symmetrical, unlabored. ABSENT: rales, rhonchi, wheezes Cardiovascular exam: PRESENT: RRR. ABSENT: diastolic murmur, rubs, systolic murmur Pulses: PRESENT: normal dorsalis pedis pul Vascular exam: PRESENT: normal capillary refill GI/Abdominal exam: PRESENT: normal bowel sounds, soft. ABSENT: distended, guarding, mass, organolmegaly, rebound, tenderness Rectal exam: PRESENT: deferred Extremities exam: PRESENT: full ROM. ABSENT: calf tenderness, clubbing, pedal edema Musculoskeletal exam: PRESENT: ambulatory Neurological exam: PRESENT: alert, awake, oriented to person, oriented to place, oriented to time, oriented to situation, CN II-XII grossly intact. ABSENT: motor sensory deficit Psychiatric exam: PRESENT: appropriate affect, normal mood. ABSENT: homicidal ideation, suicidal ideation Skin exam: PRESENT: dry, intact, warm. ABSENT: cyanosis, rash Results Laboratory Results: 08/31/18 05:08 08/31/18 05:08 08/30/18 23:30 Sputum Gram Stain - Final 08/30/18 23:30 Sputum Sputum Culture - Final NORMAL GARRETT 08/30/18 11:15 Troponin I 0.024 NT-Pro-B Natriuret Pep 2000 H Impressions: Chest X-Ray 08/30/18 10:42 IMPRESSION: NO ACUTE RADIOGRAPHIC FINDING IN THE CHEST. Qualifiers - * PATIENT BEING DISCHARGED WITH ANY OF THE FOLLOWING DIAGNOSIS: No Acute Heart Failure - Is this a Heart Failure Patient?: No Plan Discharge Plan: Follow up with your primary care provider within 1 week. Call your reinforcing iron worker helper and special tester; notify them of your admission and follow up as instructed. Take your medications as prescribed. Return to the emergency department as needed for concerning symptoms. Time Spent: Greater than 30 Minutes
== END 2018-08-31 16:05 | disposition home or self-care (01) ==
LOC: ER 10:37 → EH 14:09 → 3W 15:43
PROVIDERS: ADMIT Internal Medicine; ATTEND Internal Medicine
PROC: 5A09357 Assistance with Respiratory Ventilation, Less than 24 Consecutive Hours, Continuous Positive Airway Pressure (ICD-10-PCS; principal; 2018-08-30)
DX: J96.21 Acute and chronic respiratory failure with hypoxia (principal); J44.1 Chronic obstructive pulmonary disease with (acute) exacerbation; I11.0 Hypertensive heart disease with heart failure; I50.32 Chronic diastolic (congestive) heart failure; E11.9 Type 2 diabetes mellitus without complications; F17.210 Nicotine dependence, cigarettes, uncomplicated; E66.01 Morbid (severe) obesity due to excess calories; G47.33 Obstructive sleep apnea (adult) (pediatric); Z99.81 Dependence on supplemental oxygen; Z79.4 Long term (current) use of insulin; Z79.899 Other long term (current) drug therapy; Z79.84 Long term (current) use of oral hypoglycemic drugs; Z90.49 Acquired absence of other specified parts of digestive tract; Z91.030 Bee allergy status
CPT/HCPCS: 36415; 71045; 80048; 80053; 81001; 82803; 82962; 83605; 83880; 84484; 85025; 85610; 87040; 87070; 87205; 93005; 93010; 94640; 94660; 94799; 96365; 96366; 96375; 99285; G0378; J1644; J1815; J1885; J1940; J1956; J2270; J2765; J2930; J3475; J3490; J7512; J7620

== ENCOUNTER 2018-09-23 19:15 | Inpatient (IN) | payer OTHER ==
[2018-09-23 20:07] LABS: ABSOLUTE BASOPHILS # (AUTO) 0.2 10^3/uL (0.0-0.2); ABSOLUTE EOSINOPHILS # (AUTO) 0.2 10^3/uL (0.0-0.6); ABSOLUTE LYMPHOCYTES (AUTO) 2.3 10^3/uL (0.5-4.7); ABSOLUTE MONOCYTES (AUTO) 0.8 10^3/uL (0.1-1.4); ABSOLUTE NEUT (AUTO) 9.5 10^3/uL (1.7-8.2); BASOPHILS % (AUTO) 1.2 % (0-2); EOSINOPHILS % (AUTO) 1.5 % (0-6); HEMOGLOBIN 11.6 g/dL (12.0-15.5); LYMPHOCYTES % (AUTO) 17.9 % (13-45); MEAN CORPUSCULAR HEMOGLOBIN 24.6 pg (27.0-33.4); MEAN CORPUSCULAR HGB CONC 32.3 g/dL (32.0-36.0); MEAN CORPUSCULAR VOLUME 76 fl (80-97); MONOCYTES % (AUTO) 6.4 % (3-13); PLATELET COUNT 282 10^3/uL (150-450); RED BLOOD COUNT 4.74 10^6/uL (3.72-5.28); RED CELL DISTRIBUTION WIDTH 15.3 % (11.5-14.0); TOTAL CELLS COUNTED % (AUTO) 100 %
[2018-09-23] MEDS ORDERED: KETOROLAC TROMETHAMINE INJ/PF 30 MG/1 ML SDV IV ONE (20:12)
[2018-09-23] MEDS ORDERED: ACETAMINOPHEN 325 MG TABLET PO ONE (20:12)
[2018-09-23] MEDS ORDERED: NITROGLYCERIN 0.4 MG/TAB 25 TAB/BOTTLE SL PRN (20:12)
--- NOTE | 2018-09-23 20:15 | RADIOLOGY REPORT (SQ) ---
EXAM DESCRIPTION: XR CHEST 1 VIEW COMPLETED DATE/TME: 09/23/2018 19:18 CLINICAL HISTORY: 37 years, Female, bed 8 cp Comparison: None FINDINGS: No focal lung consolidation. Low lung volumes. No pleural effusion. No pneumothorax. Cardiac and mediastinal silhouette is unremarkable. No acute osseous abnormality. Soft tissues are unremarkable. IMPRESSION: No acute findings. No focal lung consolidation.
[2018-09-23 20:17] LABS: ALANINE AMINOTRANSFERASE 21 U/L (9-52); ALBUMIN 3.7 g/dL (3.5-5.0); ALKALINE PHOSPHATASE 56 U/L (38-126); ANION GAP 7 (5-19); ASPARTATE AMINO TRANSFERASE 21 U/L (14-36); BILIRUBIN,DIRECT 0.2 mg/dL (0.0-0.4); BILIRUBIN,TOTAL 0.3 mg/dL (0.2-1.3); BLOOD UREA NITROGEN 14 mg/dL (7-20); CALCIUM 8.8 mg/dL (8.4-10.2); CARBON DIOXIDE 26 mmol/L (22-30); CHLORIDE 105 mmol/L (98-107); CREATINE KINASE 223 U/L (30-135); GLUCOSE 217 mg/dL (75-110); POTASSIUM 3.9 mmol/L (3.6-5.0); TOTAL PROTEIN 6.6 g/dL (6.3-8.2)
--- NOTE | 2018-09-23 20:19 | ER Document Report ---
ED Cardiac - General Chief Complaint: Chest Pain Stated Complaint: CHEST PAIN Time Seen by Provider: 09/23/18 20:10 Primary Care Provider: [facility] [Primary Care Provider] - Follow up as needed TRAVEL OUTSIDE OF THE [place] IN LAST 30 DAYS: No - [facility] Notes: Patient is a 37-year-old female that presents to the emergency department for chief complaint of chest pain. Patient's pain started at noon today. She describes it as a squeezing sensation in her substernal region. She states it is been constant since onset. She denies aggravating or relieving factors. She did receive 324 mg chewable aspirin by EMS as well as 2 sublingual nitroglycerin. She reports no change in symptoms after these medications. Patient is having associated headache, bilateral posterior neck pain, nausea with one episode of vomiting, and shortness of breath. She reports history of cardiomyopathy and CHF. She has been compliant with home medications. She does states she had a fever of 102 2 days ago that resolved overnight. She has been afebrile since. Patient reports having a cardiac catheterization recently which showed no CAD. Patient is on 3 L nasal cannula oxygen at all times. Past Medical History: Hypertension, diabetes, cardiomyopathy, CHF Past Surgical History: Reviewed in chart Social History: Denies drugs alcohol and tobacco. Family History: Reviewed and noncontributory for presenting illness Allergies: Reviewed, see documented allergy list. REVIEW OF SYSTEMS: CONSTITUTIONAL : No fever No chills diaphoresis No recent illness EENT: No vision changes No congestion No sore throat CARDIOVASCULAR: chest pain No palpitations RESPIRATORY: shortness of breath No cough difficulty breathing GASTROINTESTINAL: No abdominal pain nausea vomiting No diarrhea GENITOURINARY: No dysuria No hematuria No difficulty urinating MUSCULOSKELETAL: No back pain No leg pain No arm pain Neck pain SKIN: No rashes No lesions LYMPHATIC: No swollen, enlarged glands. NEUROLOGICAL: No lightheadedness headache No weakness No paresthesias PSYCHIATRIC: No anxiety No depression PHYSICAL EXAMINATION: Vital signs reviewed, nursing noted reviewed. GENERAL: Well-appearing, obese and in mild acute distress. HEAD: Atraumatic, normocephalic. EYES: Eyes appear normal, extraocular movements intact, sclera anicteric, conjunctiva are normal. ENT: nares patent, oropharynx clear without exudates. Moist mucous membranes. NECK: Normal range of motion, supple without lymphadenopathy LUNGS: Breath sounds diminished to auscultation bilaterally and equal. Tachypneic with mild accessory muscle use HEART: Tachycardic rate and regular rhythm without murmurs ABDOMEN: Soft, nontender, normoactive bowel sounds. No rebound, guarding, or rigidity. No masses appreciated. EXTREMITIES: Nontender, good range of motion, trace pretibial edema NEUROLOGICAL: No focal neurological deficits. Moves all extremities spontaneo usly Motor and sensory grossly intact on exam. PSYCH: Normal mood, normal affect. SKIN: Warm, Dry, normal turgor, no rashes or lesions noted on exposed skin - Related Data Allergies/Adverse Reactions: amoxicillin [Amoxicillin] Allergy (Severe, Verified 07/11/18 21:16) Anaphylaxis Penicillins Allergy (Severe, Verified 07/11/18 21:16) Anaphylaxis Bees/Wasp Allergy (Severe, Uncoded 07/11/18 21:16) Anaphylaxis Past Medical History - Social History Smoking Status: Never Smoker Family History: Reviewed & Not Pertinent, CAD, DM, Hypertension, Malignancy - Past Medical History Cardiac Medical History: Reports: Hx Atrial Fibrillation, Hx Congestive Heart Failure, Hx Hypercholesterolemia, Hx Hypertension Denies: Hx Coronary Artery Disease, Hx Heart Attack Pulmonary Medical History: Reports: Hx Asthma - SEVERE, Hx Bronchitis, Hx COPD, Hx Pneumonia, Hx Respiratory Failure - chronic Neurological Medical History: Denies: Hx Cerebrovascular Accident, Hx Seizures Endocrine Medical History: Reports: Hx Diabetes Mellitus Type 1, Hx Diabetes Edith litus Type 2 - insulin dependent Renal/ Medical History: Reports: Hx Kidney Stones. Denies: Hx Peritoneal Dialysis GI Medical History: Denies: Hx Cirrhosis, Hx Crohn's Disease, Hx Hepatitis Musculoskeletal Medical History: Denies Hx Arthritis Psychiatric Medical History: Reports: Hx Anxiety, Hx Bipolar Disorder, Hx Depression Infectious Medical History: Denies: Hx Hepatitis Past Surgical History: Reports: Hx Abdominal Surgery - hernia, Hx Cardiac Catheterization, Hx Cholecystectomy, Hx Herniorrhaphy, Hx Umbilical Hernia - Immunizations Immunizations up to date: No Hx Diphtheria, Pertussis, Tetanus Vaccination: Yes Hx Pneumococcal Vaccination: 11/12/17 Physical Exam - Vital signs Vitals: Pulse Ox 97 09/23/18 19:18 Course - Re-evaluation Re-evalutation: 09/23/18 20:18 Vitals reviewed. Nursing notes reviewed. Patient received aspirin prior to arrival. She has had 2 sublingual nitroglycerin and another sublingual nitroglycerin has been ordered for continued pain management. Patient also ordered Tylenol and Toradol for her headache and chest pain. She is on telemetry monitoring. EKG shows chronic changes with no STEMI 09/23/18 20:49 Patient's lab work shows hyperglycemia. She also has an indeterminate troponin at 0.020 and slight elevation of CK-MB which is chronic for her and around b aseline. She also has a slight leukocytosis likely related to daily prednisone use. She is afebrile here. Her chest x-ray shows no pulmonary vascular congestion or other acute process. Patient will be admitted to the hospital for further cardiac monitoring. Care discussed with Dr. Castillo who accepts admission. Laboratory 09/23/18 09/23/18 09/23/18 19:45 19:45 19:45 WBC 13.0 H RBC 4.74 Hgb 11.6 L Hct 36.0 MCV 76 L MCH 24.6 L MCHC 32.3 RDW 15.3 H Plt Count 282 Seg Neutrophils % 73.0 Lymphocytes % 17.9 Monocytes % 6.4 Eosinophils % 1.5 Basophils % 1.2 Absolute Neutrophils 9.5 H Absolute Lymphocytes 2.3 Absolute Monocytes 0.8 Absolute Eosinophils 0.2 Absolute Basophils 0.2 Sodium 138.3 Potassium 3.9 Chloride 105 Carbon Dioxide 26 Anion Gap 7 BUN 14 Creatinine 0.57 Est GFR ( Amer) > 60 Est GFR (Non-Af Amer) > 60 Glucose 217 H Calcium 8.8 Total Bilirubin 0.3 Direct Bilirubin 0.2 Neonat Total Bilirubin Not Reportable Neonat Direct Bilirubin Not Reportable Neonat Indirect Bili Not Reportable AST 21 ALT 21 Alkaline Phosphatase 56 Creatine Kinase 223 H CK-MB (CK-2) 0.89 Troponin I 0.020 Total Protein 6.6 Albumin 3.7 Chest X-Ray 09/23/18 19:18 IMPRESSION: No acute findings. No focal lung consolidation. 09/23/18 20:50 - Vital Signs Vital signs: Temp Pulse Resp BP Pulse Ox 97 09/23/18 19:18 - Laboratory Result Diagrams: 09/23/18 19:45 09/23/18 19:45 Laboratory results interpreted by me: 09/23/18 09/23/18 19:45 19:45 WBC 13.0 H Hgb 11.6 L MCV 76 L MCH 24.6 L RDW 15.3 H Absolute Neutrophils 9.5 H Glucose 217 H Creatine Kinase 223 H Discharge - Discharge Clinical Impression: Chest pain Qualifiers: Chest pain type: unspecified Qualified Code(s): R07.9 - Chest pain, unspecified Condition: Stable Disposition: ADMITTED OBSERVATION Admitting Provider: Jonathan (Hospitalist) Unit Admitted: Telemetry Referrals: [facility] [Primary Care Provider] - Follow up as needed
[2018-09-23 20:28] LABS: CREATINE KINASE MB 0.89 ng/mL (<4.55); TROPONIN I 0.02 ng/mL
--- NOTE | 2018-09-24 00:09 | PDOC H&P ---
History of Present Illness Admission Date/PCP: 09/23/2018 20:47 [facility] Patient complains of: Chest pain History of Present Illness: DAYTON MENDOZA is a 37 year old female who presented to the emergency room, via EMS, with acute onset chest pain. She admits the onset of chest pain in the late afternoon which gradually worsened to become severe by this evening causing her to come to the emergency room. She describes the pain as a constantly pres ent, substernal pressure/tightness without radiation. Her chest pain was accompanied by nausea, vomiting, severe diaphoresis and lightheadedness with a brief episode of syncope. She also admits the accompanying symptoms of a posterior head and neck ache and one episode of dyspnea at home while at rest. She admits prior similar episodes related to her congestive heart failure and her cardiomyopathy. She has not identified any aggravating or ameliorating factors for her chest pain. EMS treated the patient with oxygen and nitroglycerin without any change in her symptoms. In the emergency room she was found to have an EKG which showed no evidence of acute myocardial injury or ischemia and her initial cardiac enzymes were negative. She was subsequently admitted to the hospital, on observation status, for further evaluation and treatment. Past Medical History Cardiac Medical History: Reports: Atrial Fibrillation, Congestive Heart Failure, Hyperlipidema, Hypertension, Other - Cardiomyopathy Denies: Coronary Artery Disease, Myocardial Infarction Pulmonary Medical History: Reports: Asthma, Bronchitis, Chronic Obstructive Pulmonary Disease (COPD), Pneumonia, Respiratory Failure - chronic: on 3 L/min of oxygen per nasal cannula, continuously. EENT Medical History: Denies: Cataracts, Ears - Hearing aids Neurological Medical History: Denies: Hemorrhagic CVA, Ischemic CVA, Multiple Sclerosis, Seizures Endocrine Medical History: Reports: Diabetes Mellitus Type 2 - insulin dependent, Obesity Denies: Diabetes Mellitus Type 1, Hyperthyroidism, Hypothyroidism Renal/ Medical History: Denies: Chronic Kidney Disease, Nephrolithiasis Malignancy Medical History: Reports: None GI Medical History: Denies: Cirrhosis, Crohn's Disease, Hepatitis, Ulcerative Colitis Musculoskeltal Medical History: Denies: Arthritis, Fibromyalgia Skin Medical History: Denies: Eczema, Psoriasis Psychiatric Medical History: Reports: Bipolar Disorder, Depression Denies: Alcohol Dependency, Substance Abuse, Tobacco Dependency Traumatic Medical History: Reports: None Hematology: Reports: Anemia Denies: Bleeding Tendencies Infectious Medical History: Reports: None Past Surgical History Past Surgical History: Reports: Cardiac Catheterization, Cholecystectomy, Herniorrhaphy Social History Information Source: Patient Lives with: Spouse/Significant other Smoking Status: Current Some Day Smoker Frequency of Alcohol Use: Occasional Hx Recreational Drug Use: No Drugs: None Hx Prescription Drug Abuse: No - Advance Directive Resuscitation Status: Full Code Surrogate healthcare decision maker:: Dot Ruiz her mother Family History Family History: CAD, DM, Hypertension, Malignancy Parental Family History Reviewed: Yes Children Family History Reviewed: No Sibling(s) Family History Reviewed.: Yes Medication/Allergy Home Medications: Albuterol Sulfate [Proair HFA Inhalation Aerosol 8.5 gm MDI] 2 puff IH Q4HP PRN 08/30/18 Budesonide/Formoterol Fumarate [Symbicort HFA 160-4.5 mcg Inhaler 6 gm] 1 puff IH DAILY 08/30/18 Carvedilol [Coreg 6.25 mg Tablet] 6.25 mg PO Q12 08/30/18 Furosemide [Lasix 20 mg Tablet] 20 mg PO DAILY 08/30/18 Gabapentin [Neurontin] 600 mg PO Q12 08/30/18 Glipizide [Glucotrol] 10 mg PO BID 08/30/18 Insulin Glargine,Hum.rec.anlog [Lantus Insulin 100 Unit/1 ml 10 ml] 60 units SQ QPM 08/30/18 Isosorbide Mononitrate [Imdur 30 mg Tablet.er] 30 mg PO DAILY 08/30/18 Loratadine [Claritin 10 mg Tablet] 10 mg PO DAILY 08/30/18 Metformin HCl [Glucophage] 1,000 mg PO BID 08/30/18 Sacubitril/Valsartan [Entresto 49 mg/51 mg Tablet] 1 tab PO BID 08/30/18 Tiotropium [place] [Spiriva Respimat] 1 puff IH BID 08/30/18 Acetaminophen [Tylenol 325 mg Tablet] 650 mg PO Q4HP PRN tablet 08/31/18 Guaifenesin [Mucinex Sr 600 mg Tablet.sa] 600 mg PO Q12 #14 tablet.sa 08/31/18 Lidocaine [Lidoderm 5% (700 mg) Transdermal Patch] 2 patch TP QHS #30 adh..patch 08/31/18 Methocarbamol [Robaxin 500 mg Tablet] 500 mg PO BIDP PRN #10 tablet 08/31/18 Prednisone [Deltasone 20 mg Tablet] 60 mg PO DAILY #12 tablet 08/31/18 Allergies/Adverse Reactions: amoxicillin [Amoxicillin] Allergy (Severe, Verified 07/11/18 21:16) Anaphylaxis Penicillins Allergy (Severe, Verified 07/11/18 21:16) Anaphylaxis Bees/Wasp Allergy (Severe, Uncoded 07/11/18 21:16) Anaphylaxis Review of Systems Constitutional: PRESENT: as per HPI, fever(s) - Fever to 102.2 two days ago afebrile since., headache(s). ABSENT: chills Eyes: ABSENT: visual disturbances, other - Eye pain Ears: ABSENT: hearing changes, other - Ear pain Nose, Mouth, and Throat: ABSENT: mouth pain, sore throat Cardiovascular: PRESENT: as per HPI, chest pain, other - Lightheadedness with syncopal episode x1. ABSENT: dyspnea on exertion, edema, orthropnea, palpitations Respiratory: PRESENT: as per HPI, dyspnea. ABSENT: cough Gastrointestinal: PRESENT: as per HPI, nausea, vomiting. ABSENT: abdominal pain, constipation, diarrhea Genitourinary: ABSENT: dysuria, hematuria Musculoskeletal: ABSENT: back pain, joint swelling, muscle weakness Integumentary: PRESENT: as per HPI, diaphoresis. ABSENT: pruritus, rash Neurological: PRESENT: as per HPI, syncope. ABSENT: confusion, convulsions, focal weakness, memory loss Psychiatric: ABSENT: anxiety, depression Endocrine: ABSENT: cold intolerance, heat intolerance Hematologic/Lymphatic: ABSENT: easy bleeding, easy bruising Physical Exam Vital Signs: Temp Pulse Resp BP Pulse Ox 97 09/23/18 19:18 Intake & Output 09/21/18 09/22/18 09/23/18 23:59 23:59 23:59 Weight 145.603 kg General appearance: PRESENT: cooperative, mild distress - Continues to have chest pain, although it is much improved since receiving Toradol., morbidly obese Head exam: PRESENT: atraumatic, normocephalic Eye exam: PRESENT: conjunctiva pink. ABSENT: conjunctival injection, scleral icterus Ear exam: PRESENT: normal external ear exam. ABSENT: bleeding, drainage Mouth exam: PRESENT: dry mucosa, neck supple Neck exam: ABSENT: JVD, thyromegaly, tracheal deviation Respiratory exam: PRESENT: clear to auscultation russell, symmetrical, unlabored Cardiovascular exam: PRESENT: RRR. ABSENT: clicks, gallop, rubs Pulses: PRESENT: normal radial pulses, normal dorsalis pedis pul Vascular exam: PRESENT: normal capillary refill. ABSENT: pallor GI/Abdominal exam: PRESENT: normal bowel sounds, soft Rectal exam: PRESENT: deferred Extremities exam: PRESENT: pedal edema - Minimal bipedal edema. ABSENT: joint swelling Musculoskeletal exam: ABSENT: deformity, dislocation Neurological exam: PRESENT: alert, oriented to person, oriented to place, oriented to time, oriented to situation, CN II-XII grossly intact. ABSENT: motor sensory deficit Psychiatric exam: PRESENT: appropriate affect, normal mood Skin exam: PRESENT: dry, intact, warm. ABSENT: jaundice, rash, urticaria Results Laboratory Results: 09/23/18 19:45 09/23/18 19:45 09/23/18 09/23/18 19:45 19:45 WBC 13.0 H RBC 4.74 Hgb 11.6 L Hct 36.0 MCV 76 L MCH 24.6 L MCHC 32.3 RDW 15.3 H Plt Count 282 Seg Neutrophils % 73.0 Lymphocytes % 17.9 Monocytes % 6.4 Eosinophils % 1.5 Basophils % 1.2 Absolute Neutrophils 9.5 H Absolute Lymphocytes 2.3 Absolute Monocytes 0.8 Absolute Eosinophils 0.2 Absolute Basophils 0.2 Sodium 138.3 Potassium 3.9 Chloride 105 Carbon Dioxide 26 Anion Gap 7 BUN 14 Creatinine 0.57 Est GFR ( Amer) > 60 Est GFR (Non-Af Amer) > 60 Glucose 217 H Calcium 8.8 Total Bilirubin 0.3 AST 21 ALT 21 Alkaline Phosphatase 56 Total Protein 6.6 Albumin 3.7 09/23/18 09/23/18 19:45 19:45 Creatine Kinase 223 H CK-MB (CK-2) 0.89 Troponin I 0.020 Impressions: Chest X-Ray 09/23/18 19:18 IMPRESSION: No acute findings. No focal lung consolidation. Assessment and Plan - Diagnosis (1) Chest pain Qualifiers: Chest pain type: unspecified Qualified Code(s): R07.9 - Chest pain, unspecified Is this a current diagnosis for this admission?: Yes Plan: Patient's chest pain will be treated with Toradol 30 mg IV every 6 hours x4 doses, morphine sulfate 2 to 4 mg IV every 2 hours as needed via a sliding scale. Serial cardiac enzymes will be obtained as well EKGs. Patient is noted to have a history of a cardiac catheterization that showed no evidence of coronary artery disease. (2) Chronic diastolic CHF (congestive heart failure) Is this a current diagnosis for this admission?: Yes Plan: Patient will be continued on her usual medications for congestive heart failure during her hospital course. Her vital signs be monitored closely and she will be observed for any signs of worsening heart failure. (3) Morbid obesity with BMI of 40.0-44.9, adult Is this a current diagnosis for this admission?: Yes Plan: Patient will be seen in consultation by nutrition services if possible during her hospital course to provide advice for weight loss. (4) Diabetes mellitus type 2 in obese Is this a current diagnosis for this admission?: Yes Plan: Patient be continued on her current medication for diabetes mellitus as well as a diabetic diet. Before meals and at bedtime blood sugars will be obtained via Accu-Chek and a sliding scale insulin will be administered for hyperglycemia. Hypoglycemic protocol will be in place. Hemoglobin A1c will be obtained to evaluate her current therapy's efficacy. - Time Time Spent with patient: 25-34 minutes Smoking Cessation Education: 3 to 10 minutes Medications reviewed and adjusted accordingly: Yes Anticipated discharge: Home - Inpatient Certification Based on my medical assessment, after consideration of the patient's comorbidities, presenting symptoms, or acuity I expect that the services needed warrant INPATIENT care.: No I certify that my determination is in accordance with my understanding of Medicare's requirements for reasonable and necessary INPATIENT services [42 CFR 412.3e].: No Medical Necessity: Significant Comorbidiites Make Outpatient Treatment Too Risky, Need Close Monitoring Due to Risk of Patient Decompensation, Need For Continuous Telemetry Monitoring, Need for Pain Control, Risk of Complication if Not Cared For in Hospital
[2018-09-24] MEDS ORDERED: MAGNESIUM HYDROXIDE SUSP 30 ML UDCUP PO PRN (00:12)
[2018-09-24] MEDS ORDERED: ONDANSETRON HCL INJ/PF 4 MG/2 ML SDV IV PRN (00:12)
[2018-09-24] MEDS ORDERED: ZOLPIDEM TARTRATE 5 MG TABLET PO PRN (00:12)
[2018-09-24] MEDS ORDERED: MAG HYDROX/AL HYDROX/SIMETH SUSP 30 ML UDCUP PO PRN (00:12)
--- NOTE | 2018-09-24 00:12 | ADVANCED CARE ---
- Diagnosis (1) Chest pain Diagnosis Current: Yes (2) Chronic diastolic CHF (congestive heart failure) Diagnosis Current: Yes (3) Morbid obesity with BMI of 40.0-44.9, adult Diagnosis Current: Yes (4) Diabetes mellitus type 2 in obese Diagnosis Current: Yes Attendance: The patient and myself. Resuscitation Status: Full Code Discussion: After brief discussion patient is determined that she wishes to remain full code for her resuscitation status during this hospitalization. Additionally she has named her mother Dot Ruiz as her designated surrogate medical decision- maker. Care Planning Goals: 1. Patient will be full CODE STATUS for this hospitalization. 2. Dot Ruiz is the patient's designated surrogate medical decision-maker. Document(s) Completed: Following entries will be made into the patient's permanent medical record, current medical record and current orders via EMR entry: 1. Patient will be full CODE STATUS for this hospitalization. 2. Dot Ruiz is the patient's designated surrogate medical decision-maker. Time Spent: 5 minutes
[2018-09-24] MEDS ORDERED: METOPROLOL TARTRATE PF/INJ 5 MG/5 ML SDV IV PRN (00:19)
[2018-09-24] MEDS ORDERED: LEVALBUTEROL HCL NEB 0.63 MG/3 ML AMPUL NEB PRN (00:19)
[2018-09-24] MEDS ORDERED: ACETAMINOPHEN 325 MG TABLET PO PRN (00:19)
[2018-09-24] MEDS ORDERED: NICOTINE 21 MG/24 HR PATCH.TD24 TD PRN (00:19)
[2018-09-24] MEDS ORDERED: MORPHINE SULFATE 10 MG/ML INJ IV PRN ×6 (00:19→23:01)
[2018-09-24] MEDS ORDERED: HYDRALAZINE HCL INJ/PF 20 MG/1 ML SDV IV PRN (00:19)
[2018-09-24] MEDS ORDERED: DEXTROSE 50%-WATER 25 GM/50 ML DISP.SYRIN IV PRN ×2 (00:20)
[2018-09-24] MEDS ORDERED: DEXTROSE 40% GEL 15 GM TUBE PO PRN ×2 (00:20)
[2018-09-24] MEDS ORDERED: GLUCAGON,HUMAN RECOMB 1 MG INJ IM PRN (00:20)
[2018-09-24] MEDS: KETOROLAC TROMETHAMINE INJ/PF 30 MG/1 ML SDV IV SCH ×4 (01:09→18:07)
[2018-09-24 01:47] LABS: FREE T3 3.38 pg/mL (2.77-5.27); FREE T4 (FREE THYROXINE) 1.12 ng/dL (0.78-2.19)
[2018-09-24 05:29] LABS: ABSOLUTE BASOPHILS # (AUTO) 0.1 10^3/uL (0.0-0.2); ABSOLUTE EOSINOPHILS # (AUTO) 0.2 10^3/uL (0.0-0.6); ABSOLUTE MONOCYTES (AUTO) 0.9 10^3/uL (0.1-1.4); ABSOLUTE NEUT (AUTO) 8.4 10^3/uL (1.7-8.2); BASOPHILS % (AUTO) 0.5 % (0-2); EOSINOPHILS % (AUTO) 1.9 % (0-6); HEMATOCRIT 35.8 % (36.0-47.0); HEMOGLOBIN 11.7 g/dL (12.0-15.5); MEAN CORPUSCULAR HEMOGLOBIN 24.8 pg (27.0-33.4); MEAN CORPUSCULAR HGB CONC 32.6 g/dL (32.0-36.0); MEAN CORPUSCULAR VOLUME 76 fl (80-97); MONOCYTES % (AUTO) 7.5 % (3-13); PLATELET COUNT 254 10^3/uL (150-450); RED CELL DISTRIBUTION WIDTH 15.8 % (11.5-14.0); SEGMENTED NEUTROPHILS % (AUTO) 66.1 % (42-78); TOTAL CELLS COUNTED % (AUTO) 100 %; WHITE BLOOD COUNT 12.7 10^3/uL (4.0-10.5)
[2018-09-24 06:01] LABS: CHOLESTEROL 109.61 mg/dL (0-200); TRIGLYCERIDES 83 mg/dL (<150)
[2018-09-24 06:03] LABS: CREATINE KINASE MB 0.76 ng/mL (<4.55); TROPONIN I 0.02 ng/mL
[2018-09-24 06:12] LABS: DIRECT LDL 54 mg/dL (<100)
[2018-09-24] MEDS: HEPARIN SOD (PORCINE) 5,000 UNIT/ML 1 ML VIAL SUBCUT SCH ×3 (06:34→21:47)
[2018-09-24] MEDS: MORPHINE SULFATE 10 MG/ML INJ IV PRN ×2 (06:35→16:55)
[2018-09-24] MEDS: FAMOTIDINE 20 MG TABLET PO SCH ×2 (09:51→21:48)
[2018-09-24] MEDS: DOCUSATE SODIUM 100 MG CAPSULE PO SCH ×2 (09:51→17:13)
[2018-09-24] MEDS: INSULIN REG, HUMAN 100 UNIT/ML 3 ML VIAL (PYX) SUBCUT SCH ×4 (09:51→21:47)
--- NOTE | 2018-09-24 10:25 | RADIOLOGY REPORT (SQ) ---
EXAM DESCRIPTION: CT HEAD WITHOUT COMPLETED DATE/TIME: 09/24/2018 9:36 am REASON FOR STUDY: syncopal episode COMPARISON: None. TECHNIQUE: Axial images acquired through the brain without intravenous contrast. Images reviewed wi th bone, brain and subdural windows. Additional sagittal and coronal reconstructions were generated. Images stored on PACS. All CT scanners at this facility use dose modulation, iterative reconstruction, and/or weight based d osing when appropriate to reduce radiation dose to as low as reasonably achievable (ALARA). [facility]: Dose Right [facility]: CareDose [facility]: Dose Right [facility]: Teradose 4D [facility]: [employer] RADIATION DOSE: CT Rad equipment meets quality standard of care and radiation dose reduction techniq ues were employed. CTDIvol: 53.2 mGy. DLP: 937 mGy-cm. mGy. LIMITATIONS: None. FINDINGS: VENTRICLES: Normal size and contour. CEREBRUM: No masses. No hemorrhage. No midline shift. No evidence for acute infarction. Normal gra y/white matter differentiation. No areas of low density in the white matter. CEREBELLUM: No masses. No hemorrhage. No alteration of density. No evidence for acute infarction. EXTRAAXIAL SPACES: No fluid collections. No masses. ORBITS AND GLOBE: No intra- or extraconal masses. Normal contour of globe without masses. CALVARIUM: No fracture. PARANASAL SINUSES: No fluid or mucosal thickening. SOFT TISSUES: No mass or hematoma. OTHER: No other significant finding. IMPRESSION: NORMAL BRAIN CT WITHOUT CONTRAST. EVIDENCE OF ACUTE STROKE: NO. COMMENT: Quality ID # [id number]: Final reports with documentation of one or more dose reduction techniques (e.g., Automated exposure control, adjustment of the mA and/or kV according to patient size, use of iterative reconstruction technique) TECHNICAL DOCUMENTATION: JOB ID: [id number] [employer]- All Rights Reserved Reading location - IP/workstation name: [email or web address]
--- NOTE | 2018-09-24 11:56 | PDOC PROGRESS REPORT ---
Subjective Progress Note for:: 09/24/18 Subjective:: This is a 37 years old black female patient with past medical history of morbid obesity, hyperlipidemia, congestive heart failure, atrial fibrillation and COPD presented with chief complaint of chest pain. Patient also complaining of posterior head and neck ache and she has also an episode of syncope. Her blood work is unremarkable HER-2 sets of cardiac enzymes are also negative. Her CT head is negative for acute intracranial process including CVA. Reason For Visit: CHEST PAIN Physical Exam Vital Signs: Temp Pulse Resp BP Pulse Ox 98.6 F 75 20 143/84 H 97 09/24/18 08:25 09/24/18 08:25 09/24/18 08:25 09/24/18 08:25 09/24/18 08:25 Intake & Output 09/23/18 09/24/18 09/25/18 06:59 06:59 06:59 Weight 145.603 kg General appearance: PRESENT: no acute distress, morbidly obese Head exam: PRESENT: atraumatic Eye exam: PRESENT: conjunctiva pink Neck exam: ABSENT: carotid bruit, JVD, lymphadenopathy, thyromegaly Respiratory exam: PRESENT: clear to auscultation russell. ABSENT: rales, rhonchi, wheezes Cardiovascular exam: PRESENT: RRR. ABSENT: diastolic murmur, rubs, systolic murmur GI/Abdominal exam: PRESENT: normal bowel sounds, soft. ABSENT: distended, guarding, mass, organolmegaly, rebound, tenderness Neurological exam: PRESENT: alert, awake, oriented to person, oriented to place, oriented to time, oriented to situation Results Laboratory Results: 09/24/18 05:08 09/23/18 19:45 09/23/18 09/23/18 09/23/18 19:45 19:45 19:45 WBC 13.0 H RBC 4.74 Hgb 11.6 L Hct 36.0 MCV 76 L MCH 24.6 L MCHC 32.3 RDW 15.3 H Plt Count 282 Seg Neutrophils % 73.0 Lymphocytes % 17.9 Monocytes % 6.4 Eosinophils % 1.5 Basophils % 1.2 Absolute Neutrophils 9.5 H Absolute Lymphocytes 2.3 Absolute Monocytes 0.8 Absolute Eosinophils 0.2 Absolute Basophils 0.2 Sodium 138.3 Potassium 3.9 Chloride 105 Carbon Dioxide 26 Anion Gap 7 BUN 14 Creatinine 0.57 Est GFR ( Amer) > 60 Est GFR (Non-Af Amer) > 60 Glucose 217 H Lactic Acid Calcium 8.8 Total Bilirubin 0.3 AST 21 ALT 21 Alkaline Phosphatase 56 Total Protein 6.6 Albumin 3.7 Triglycerides Cholesterol LDL Cholesterol Direct VLDL Cholesterol HDL Cholesterol Free T4 1.12 Free T3 pg/mL 3.38 09/23/18 09/24/18 09/24/18 20:45 05:08 05:08 WBC 12.7 H RBC 4.70 Hgb 11.7 L Hct 35.8 L MCV 76 L MCH 24.8 L MCHC 32.6 RDW 15.8 H Plt Count 254 Seg Neutrophils % 66.1 Lymphocytes % 24.0 Monocytes % 7.5 Eosinophils % 1.9 Basophils % 0.5 Absolute Neutrophils 8.4 H Absolute Lymphocytes 3.0 Absolute Monocytes 0.9 Absolute Eosinophils 0.2 Absolute Basophils 0.1 Sodium Potassium Chloride Carbon Dioxide Anion Gap BUN Creatinine Est GFR ( Amer) Est GFR (Non-Af Amer) Glucose Lactic Acid 1.4 Calcium Total Bilirubin AST ALT Alkaline Phosphatase Total Protein Albumin Triglycerides 83 Cholesterol 109.61 LDL Cholesterol Direct 54 VLDL Cholesterol 17.0 HDL Cholesterol 53 Free T4 Free T3 pg/mL 09/23/18 09/23/18 09/23/18 19:45 19:45 23:01 Creatine Kinase 223 H CK-MB (CK-2) 0.89 Troponin I 0.020 0.027 09/23/18 09/23/18 09/24/18 23:01 23:01 05:08 Creatine Kinase 230 H 169 H CK-MB (CK-2) 0.90 Troponin I Cancelled 09/24/18 05:08 Creatine Kinase CK-MB (CK-2) 0.76 Troponin I 0.020 Impressions: Chest X-Ray 09/23/18 19:18 IMPRESSION: No acute findings. No focal lung consolidation. Head CT 09/24/18 00:00 IMPRESSION: NORMAL BRAIN CT WITHOUT CONTRAST. EVIDENCE OF ACUTE STROKE: NO. Assessment and Plan - Diagnosis (1) Syncope Qualifiers: Syncope type: vasovagal syncope Qualified Code(s): R55 - Syncope and collapse Is this a current diagnosis for this admission?: Yes Plan: CT head is negative. (2) Chest pain Qualifiers: Chest pain type: other chest pain Qualified Code(s): R07.89 - Other chest pain; R07.8 - Other chest pain Is this a current diagnosis for this admission?: Yes Plan: Since she has multiple risk factor for acute current syndrome patient to be observed overnight trend her cardiac enzymes and a stress test in the morning. (3) COPD (chronic obstructive pulmonary disease) Qualifiers: Emphysema type: unspecified Is this a current diagnosis for this admission?: Yes Plan: Continue supplemental oxygen and breathing treatment. (4) Atrial fibrillation Qualifiers: Atrial fibrillation type: paroxysmal Qualified Code(s): I48.0 - Paroxysmal atrial fibrillation Is this a current diagnosis for this admission?: Yes Plan: Rate controlled (5) Morbid obesity with BMI of 40.0-44.9, adult Is this a current diagnosis for this admission?: Yes Plan: Lifestyle modification advised that
[2018-09-24] MEDS ORDERED: METHOCARBAMOL 500 MG TABLET PO PRN (12:44)
[2018-09-24] MEDS ORDERED: LORATADINE 10 MG TABLET PO SCH (13:00)
[2018-09-24] MEDS ORDERED: (PENDING PHARMACY ID) (Budesonide/Formoterol Fumarate 1 PUFF) IH SCH (13:00)
[2018-09-24 13:14] LABS: CREATINE KINASE MB 0.65 ng/mL (<4.55); TROPONIN I 0.016 ng/mL
[2018-09-24] MEDS: ISOSORBIDE MONONITRATE 30 MG TAB.ER.24H PO SCH (16:52)
[2018-09-24] MEDS: LORATADINE 10 MG TABLET PO SCH (16:53)
[2018-09-24] MEDS: GLIPIZIDE 10 MG TABLET PO SCH (17:13)
[2018-09-24] MEDS: METFORMIN HCL 500 MG TABLET PO SCH (17:13)
[2018-09-24] MEDS: SACUBITRIL/VALSARTAN 49 MG/51 MG TABLET PO SCH (17:15)
[2018-09-24] MEDS ORDERED: (PENDING PHARMACY ID) (Tiotropium Bromide [Spiriva Respimat] 1 PUFF) IH SCH (18:00)
--- NOTE | 2018-09-24 19:03 | EKG REPORT ---
SEVERITY:- ABNORMAL ECG - SINUS RHYTHM ABNORMAL Q SUGGESTS ANTERIOR INFARCT NONSPECIFIC T ABNORMALITIES, LATERAL LEADS : Confirmed by: Heaven Marshall MD 24-Sep-2018 19:02:02
--- NOTE | 2018-09-24 19:03 | EKG REPORT ---
SEVERITY:- ABNORMAL ECG - SINUS RHYTHM ABNORMAL Q SUGGESTS ANTERIOR INFARCT BORDERLINE T ABNORMALITIES, ANT-LAT LEADS BORDERLINE PROLONGED QT INTERVAL : Confirmed by: Heaven Marshall MD 24-Sep-2018 19:02:06
[2018-09-24] MEDS: INSULIN GLARGINE,HUM.REC.ANLOG 1,000 UNIT/10 ML VIAL SUBCUT SCH (21:46)
[2018-09-24] MEDS: GABAPENTIN 300 MG CAPSULE PO SCH (21:47)
[2018-09-24] MEDS: CARVEDILOL 12.5 MG TABLET PO SCH (21:48)
[2018-09-24] MEDS: LIDOCAINE 5% (700 MG) TRANSDERMAL ADH..PATCH TP SCH (21:51)
[2018-09-24] MEDS ORDERED: CARVEDILOL 6.25 MG TABLET PO SCH (22:00)
[2018-09-25] MEDS: HEPARIN SOD (PORCINE) 5,000 UNIT/ML 1 ML VIAL SUBCUT SCH ×3 (05:02→21:44)
[2018-09-25] MEDS: INSULIN REG, HUMAN 100 UNIT/ML 3 ML VIAL (PYX) SUBCUT SCH ×4 (08:06→21:44)
[2018-09-25] MEDS: FLUTICASONE/VILANTEROL 200-25 MCG/DOSE IH SCH (10:22)
[2018-09-25] MEDS: INSULIN GLARGINE,HUM.REC.ANLOG 1,000 UNIT/10 ML VIAL SUBCUT SCH ×2 (10:23→21:39)
[2018-09-25] MEDS: SACUBITRIL/VALSARTAN 49 MG/51 MG TABLET PO SCH ×2 (10:23→21:43)
[2018-09-25] MEDS: FAMOTIDINE 20 MG TABLET PO SCH ×2 (10:26→21:47)
[2018-09-25] MEDS: FUROSEMIDE 20 MG TABLET PO SCH (10:26)
[2018-09-25] MEDS: CARVEDILOL 12.5 MG TABLET PO SCH ×2 (10:26→21:41)
[2018-09-25] MEDS: METFORMIN HCL 500 MG TABLET PO SCH ×2 (10:26→17:32)
[2018-09-25] MEDS: GLIPIZIDE 10 MG TABLET PO SCH ×2 (10:26→17:33)
[2018-09-25] MEDS: GABAPENTIN 300 MG CAPSULE PO SCH ×2 (10:26→21:46)
[2018-09-25] MEDS: ASPIRIN 81 MG TABLET, CHEWABLE PO SCH (10:26)
[2018-09-25] MEDS: ISOSORBIDE MONONITRATE 30 MG TAB.ER.24H PO SCH (10:26)
[2018-09-25] MEDS: LORATADINE 10 MG TABLET PO SCH (10:26)
[2018-09-25] MEDS: DOCUSATE SODIUM 100 MG CAPSULE PO SCH ×3 (10:27→17:32)
[2018-09-25] MEDS: MORPHINE SULFATE 10 MG/ML INJ IV PRN ×2 (10:38→17:46)
[2018-09-25] MEDS ORDERED: VANCOMYCIN HCL 0 MG in DEXTROSE 5%-WATER 250 ML IV NR (11:00)
[2018-09-25] MEDS: VANCOMYCIN HCL 1,500 MG in DEXTROSE 5%-WATER 250 ML IV SCH ×2 (11:41→17:33)
--- NOTE | 2018-09-25 15:34 | PDOC PROGRESS REPORT ---
Subjective Progress Note for:: 09/25/18 Subjective:: This is a 37 years old black female patient with past medical history of morbid obesity, hyperlipidemia, congestive heart failure, atrial fibrillation and COPD presented with chief complaint of chest pain. Patient also complaining of posterior head and neck ache and she has also an episode of syncope. Her blood work is unremarkable HER-2 sets of cardiac enzymes are also negative. Her CT head is negative for acute intracranial process including CVA. 09/25/2018: Patient reported that her chest pain has resolved but she has neck pain which might be due to spasm. Her blood culture is positive for gram- positive cocci in cluster and patient empirically started on vancomycin. I discussed the case with Dr. Marshall who recommended not to do cardiac stress test since patient has a stress test in May 2018 which was negative. If the gram-positive cocci in cluster is a contaminant patient can be discharged safely. Reason For Visit: CHEST PAIN Physical Exam Vital Signs: Temp Pulse Resp BP Pulse Ox 98.6 F 73 18 132/78 H 99 09/25/18 12:58 09/25/18 13:59 09/25/18 12:58 09/25/18 12:58 09/25/18 12:58 Intake & Output 09/24/18 09/25/18 09/26/18 06:59 06:59 06:59 Intake Total 1806 250 Output Total 450 Balance 1356 250 Weight 145.603 kg 146.9 kg General appearance: PRESENT: no acute distress Head exam: PRESENT: atraumatic Eye exam: PRESENT: conjunctiva pink Mouth exam: PRESENT: moist Neck exam: ABSENT: carotid bruit, JVD, lymphadenopathy, thyromegaly Respiratory exam: PRESENT: clear to auscultation russell. ABSENT: rales, rhonchi, wheezes Cardiovascular exam: PRESENT: RRR. ABSENT: diastolic murmur, rubs, systolic murmur GI/Abdominal exam: PRESENT: normal bowel sounds, soft. ABSENT: distended, guarding, mass, organolmegaly, rebound, tenderness Neurological exam: PRESENT: alert, awake, oriented to person, oriented to place, oriented to time, oriented to situation Results Laboratory Results: 09/24/18 05:08 09/23/18 19:45 09/25/18 09/25/18 07:10 07:10 Magnesium 1.8 TSH 2.32 09/23/18 09/23/18 09/23/18 19:45 19:45 23:01 Creatine Kinase 223 H CK-MB (CK-2) 0.89 Troponin I 0.020 0.027 09/23/18 09/23/18 09/24/18 23:01 23:01 05:08 Creatine Kinase 230 H 169 H CK-MB (CK-2) 0.90 Troponin I Cancelled 09/24/18 09/24/18 09/24/18 05:08 12:05 12:05 Creatine Kinase 144 H CK-MB (CK-2) 0.76 0.65 Troponin I 0.020 0.016 Impressions: Chest X-Ray 09/23/18 19:18 IMPRESSION: No acute findings. No focal lung consolidation. Head CT 09/24/18 00:00 IMPRESSION: NORMAL BRAIN CT WITHOUT CONTRAST. EVIDENCE OF ACUTE STROKE: NO. Assessment and Plan - Diagnosis (1) Syncope Qualifiers: Syncope type: vasovagal syncope Qualified Code(s): R55 - Syncope and collapse Is this a current diagnosis for this admission?: Yes Plan: CT head is negative. (2) Chest pain Qualifiers: Chest pain type: other chest pain Qualified Code(s): R07.89 - Other chest pain; R07.8 - Other chest pain Is this a current diagnosis for this admission?: Yes Plan: Since she has multiple risk factor for acute current syndrome patient to be observed overnight trend her cardiac enzymes and a stress test in the morning. Per Dr. Marshall patient discontinued cardiac stress test because her last cardiac stress test was negative and it was done in May 2018. (3) COPD (chronic obstructive pulmonary disease) Qualifiers: Emphysema type: unspecified Is this a current diagnosis for this admission?: Yes Plan: Continue supplemental oxygen and breathing treatment. (4) Atrial fibrillation Qualifiers: Atrial fibrillation type: paroxysmal Qualified Code(s): I48.0 - Paroxysmal atrial fibrillation Is this a current diagnosis for this admission?: Yes Plan: Rate controlled (5) Morbid obesity with BMI of 40.0-44.9, adult Is this a current diagnosis for this admission?: Yes Plan: Lifestyle modification advised that (6) Tobacco dependence Is this a current diagnosis for this admission?: Yes Plan: Patient counseled and encouraged to quit smoking.
[2018-09-25] MEDS: LIDOCAINE 5% (700 MG) TRANSDERMAL ADH..PATCH TP SCH (21:45)
[2018-09-26] MEDS: MORPHINE SULFATE 10 MG/ML INJ IV PRN ×2 (00:07→15:47)
[2018-09-26] MEDS: VANCOMYCIN HCL 1,500 MG in DEXTROSE 5%-WATER 250 ML IV SCH ×3 (04:40→18:11)
[2018-09-26] MEDS: HEPARIN SOD (PORCINE) 5,000 UNIT/ML 1 ML VIAL SUBCUT SCH ×3 (06:09→23:13)
[2018-09-26] MEDS: INSULIN REG, HUMAN 100 UNIT/ML 3 ML VIAL (PYX) SUBCUT SCH ×4 (09:40→23:16)
[2018-09-26] MEDS: METFORMIN HCL 500 MG TABLET PO SCH ×2 (09:45→18:09)
[2018-09-26] MEDS: DOCUSATE SODIUM 100 MG CAPSULE PO SCH ×2 (09:45→18:09)
[2018-09-26] MEDS: LORATADINE 10 MG TABLET PO SCH (09:45)
[2018-09-26] MEDS: ISOSORBIDE MONONITRATE 30 MG TAB.ER.24H PO SCH (09:46)
[2018-09-26] MEDS: FUROSEMIDE 20 MG TABLET PO SCH (09:46)
[2018-09-26] MEDS: FAMOTIDINE 20 MG TABLET PO SCH ×2 (09:46→23:12)
[2018-09-26] MEDS: CARVEDILOL 12.5 MG TABLET PO SCH ×2 (09:46→23:12)
[2018-09-26] MEDS: GLIPIZIDE 10 MG TABLET PO SCH ×2 (09:46→18:09)
[2018-09-26] MEDS: GABAPENTIN 300 MG CAPSULE PO SCH ×2 (09:46→23:18)
[2018-09-26] MEDS: FLUTICASONE/VILANTEROL 200-25 MCG/DOSE IH SCH (09:47)
[2018-09-26] MEDS: INSULIN GLARGINE,HUM.REC.ANLOG 1,000 UNIT/10 ML VIAL SUBCUT SCH ×2 (09:47→23:10)
[2018-09-26] MEDS: SACUBITRIL/VALSARTAN 49 MG/51 MG TABLET PO SCH ×2 (09:47→23:15)
[2018-09-26] MEDS: ASPIRIN 81 MG TABLET, CHEWABLE PO SCH (09:50)
[2018-09-26 10:57] LABS: VANCOMYCIN,TROUGH 15.4 ug/mL (5.0-20.0)
[2018-09-26] MEDS ORDERED: PHENOL/SODIUM PHENOLATE 100 SPRAY/177 ML BOTTLE PO PRN (16:21)
[2018-09-26] MEDS ORDERED: CYCLOBENZAPRINE HCL 10 MG TABLET PO PRN (18:38)
[2018-09-26] MEDS ORDERED: OXYCODONE-ACETAMINOPHEN 5-325 MG TABLET PO PRN (18:38)
--- NOTE | 2018-09-26 18:39 | Progress Note Acknowledgement ---
Progress Note Acknowledgement Progess Note Acknowledgement: I, the undersigned member of the medical staff with appropriate privileges and with supervisory authority over Charlene Leavitt, a [facility] practice allied health professional, acknowledge that I have reviewed the progress notes entered on this patient, and in my professional judgment believe that the assessment made and/or any care evidenced was appropriate
--- NOTE | 2018-09-26 18:55 | PDOC PROGRESS REPORT ---
Subjective Progress Note for:: 09/26/18 Subjective:: The patient is a 37-year-old female with past medical history of CHF, hyperlipidemia, hypertension, COPD, chronic respiratory failure, insulin- dependent diabetes mellitus, morbid obesity, and depression who was admitted 09/23/2018 for chest pain. Patient was seen on morning rounds. She is found resting in bed comfortably on her baseline oxygen requirement. She denies any further episodes of chest discomfort. She reports continued neck muscle spasms and related headache. She also complains of a sore throat but denies fever, chills, congestion/rhinorrhea, or cough. She further denies fever, chills, chest pain, palpitations, dyspnea, orthopnea, abdominal pain, nausea vomiting and diarrhea. She has no other questions or concerns today. No concerns per nursing. Reason For Visit: CHEST PAIN Physical Exam Vital Signs: Temp Pulse Resp BP Pulse Ox 98.7 F 83 18 116/63 98 09/26/18 15:58 09/26/18 15:58 09/26/18 15:58 09/26/18 15:58 09/26/18 15:58 Intake & Output 09/25/18 09/26/18 09/27/18 06:59 06:59 06:59 Intake Total 1806 2840 1210 Output Total 450 500 Balance 1356 2340 1210 Weight 146.9 kg General appearance: PRESENT: no acute distress, cooperative, morbidly obese, well-developed, well-nourished Head exam: PRESENT: atraumatic, normocephalic Eye exam: PRESENT: conjunctiva pink, EOMI, PERRLA. ABSENT: scleral icterus Ear exam: PRESENT: normal external ear exam Mouth exam: PRESENT: moist, tongue midline Throat exam: PRESENT: post pharyngeal erythema. ABSENT: tonsillar erythema, tonsillar exudate, tonsillogmegaly Neck exam: ABSENT: carotid bruit, JVD, lymphadenopathy, thyromegaly Respiratory exam: PRESENT: clear to auscultation russell, symmetrical, unlabored, other - Baseline oxygen requirement. ABSENT: rales, rhonchi, wheezes Cardiovascular exam: PRESENT: RRR. ABSENT: diastolic murmur, rubs, systolic murmur Pulses: PRESENT: normal dorsalis pedis pul Vascular exam: PRESENT: normal capillary refill GI/Abdominal exam: PRESENT: normal bowel sounds, soft. ABSENT: distended, guarding, mass, organolmegaly, rebound, tenderness Rectal exam: PRESENT: deferred Extremities exam: PRESENT: full ROM. ABSENT: calf tenderness, clubbing, pedal edema Neurological exam: PRESENT: alert, awake, oriented to person, oriented to place, oriented to time, oriented to situation, CN II-XII grossly intact. ABSENT: motor sensory deficit Psychiatric exam: PRESENT: appropriate affect, normal mood. ABSENT: homicidal ideation, suicidal ideation Skin exam: PRESENT: dry, intact, warm. ABSENT: cyanosis, rash Results Laboratory Results: 09/24/18 05:08 09/26/18 09:29 09/26/18 09:29 Creatinine 0.57 Est GFR ( Amer) > 60 Est GFR (Non-Af Amer) > 60 09/23/18 09/23/18 09/23/18 19:45 19:45 23:01 Creatine Kinase 223 H CK-MB (CK-2) 0.89 Troponin I 0.020 0.027 09/23/18 09/23/18 09/24/18 23:01 23:01 05:08 Creatine Kinase 230 H 169 H CK-MB (CK-2) 0.90 Troponin I Cancelled 09/24/18 09/24/18 09/24/18 05:08 12:05 12:05 Creatine Kinase 144 H CK-MB (CK-2) 0.76 0.65 Troponin I 0.020 0.016 Impressions: Chest X-Ray 09/23/18 19:18 IMPRESSION: No acute findings. No focal lung consolidation. Head CT 09/24/18 00:00 IMPRESSION: NORMAL BRAIN CT WITHOUT CONTRAST. EVIDENCE OF ACUTE STROKE: NO. Assessment and Plan - Diagnosis (1) Torticollis Is this a current diagnosis for this admission?: Yes Plan: Recommend gentle stretching, heating pad. May use Tylenol, Flexeril, and/or Percocet as needed for pain. (2) Atrial fibrillation Qualifiers: Atrial fibrillation type: paroxysmal Qualified Code(s): I48.0 - Paroxysmal atrial fibrillation Is this a current diagnosis for this admission?: Yes Plan: Rate controlled and in NSR at this time. Continue home medication regiment. Patient is not chronically anticoagulated. (3) COPD (chronic obstructive pulmonary disease) Qualifiers: Emphysema type: unspecified Is this a current diagnosis for this admission?: Yes Plan: Stable and without exacerbation at this time. Continue home dose Brio and Spiriva. Continue supplemental oxygen as needed. As needed nebulizer treatments. (4) Chest pain Qualifiers: Chest pain type: other chest pain Qualified Code(s): R07.89 - Other chest pain; R07.8 - Other chest pain Is this a current diagnosis for this admission?: Yes Plan: Resolved. Troponins were negative x4. No abnormal findings on EKG or telemetry monitoring. Patient had a recent normal stress test. Continue home dose antihypertensives including isosorbide. Follow-up with established supervisor coremaker following discharge for further management. (5) Morbid obesity with BMI of 40.0-44.9, adult Is this a current diagnosis for this admission?: Yes Plan: Lifestyle modification and dietary discretion are advised. (6) Syncope Qualifiers: Syncope type: vasovagal syncope Qualified Code(s): R55 - Syncope and collapse Is this a current diagnosis for this admission?: Yes Plan: CT head is negative. Possibly vasovagal as the patient reports that her syncopal episode been immediately following muscle spasm to her neck (torticollis). Orthostatic blood pressures are normal. No abnormal rhythm changes noted on telemetry monitoring. (7) Tobacco dependence Is this a current diagnosis for this admission?: Yes Plan: Patient counseled and encouraged to quit smoking. (8) Bacteremia Is this a current diagnosis for this admission?: Yes Plan: 1 of 4 blood culture bottles growing coag negative staph; likely a contaminant. She was empirically placed on IV vancomycin; day #2. Repeat blood cultures pending. Spoke with micro lab today; final report expected tomorrow. Anticipate discharge to home once received. - Time Time Spent with patient: 25-34 minutes Medications reviewed and adjusted accordingly: Yes
[2018-09-26] MEDS ORDERED: LIDOCAINE 5% (700 MG) TRANSDERMAL ADH..PATCH TP SCH (22:00)
[2018-09-27] MEDS: VANCOMYCIN HCL 1,500 MG in DEXTROSE 5%-WATER 250 ML IV SCH ×2 (02:22→10:23)
[2018-09-27] MEDS: HEPARIN SOD (PORCINE) 5,000 UNIT/ML 1 ML VIAL SUBCUT SCH (05:22)
[2018-09-27 06:27] LABS: HEMATOCRIT 34.2 % (36.0-47.0); HEMOGLOBIN 11.2 g/dL (12.0-15.5); MEAN CORPUSCULAR HEMOGLOBIN 24.8 pg (27.0-33.4); MEAN CORPUSCULAR HGB CONC 32.7 g/dL (32.0-36.0); MEAN CORPUSCULAR VOLUME 76 fl (80-97); PLATELET COUNT 235 10^3/uL (150-450); RED BLOOD COUNT 4.51 10^6/uL (3.72-5.28); RED CELL DISTRIBUTION WIDTH 15.2 % (11.5-14.0); WHITE BLOOD COUNT 11.5 10^3/uL (4.0-10.5)
[2018-09-27 06:53] LABS: ANION GAP 8 (5-19); BLOOD UREA NITROGEN 11 mg/dL (7-20); CALCIUM 8.2 mg/dL (8.4-10.2); CARBON DIOXIDE 26 mmol/L (22-30); CHLORIDE 101 mmol/L (98-107); GLUCOSE 188 mg/dL (75-110); POTASSIUM 4.2 mmol/L (3.6-5.0)
[2018-09-27] MEDS: INSULIN REG, HUMAN 100 UNIT/ML 3 ML VIAL (PYX) SUBCUT SCH (08:50)
[2018-09-27] MEDS: FUROSEMIDE 20 MG TABLET PO SCH (10:21)
[2018-09-27] MEDS: CARVEDILOL 12.5 MG TABLET PO SCH (10:21)
[2018-09-27] MEDS: LORATADINE 10 MG TABLET PO SCH (10:21)
[2018-09-27] MEDS: GABAPENTIN 300 MG CAPSULE PO SCH (10:21)
[2018-09-27] MEDS: ASPIRIN 81 MG TABLET, CHEWABLE PO SCH (10:21)
[2018-09-27] MEDS: GLIPIZIDE 10 MG TABLET PO SCH (10:21)
[2018-09-27] MEDS: ISOSORBIDE MONONITRATE 30 MG TAB.ER.24H PO SCH (10:21)
[2018-09-27] MEDS: METFORMIN HCL 500 MG TABLET PO SCH (10:21)
[2018-09-27] MEDS: FAMOTIDINE 20 MG TABLET PO SCH (10:21)
[2018-09-27] MEDS: DOCUSATE SODIUM 100 MG CAPSULE PO SCH (10:22)
[2018-09-27] MEDS: FLUTICASONE/VILANTEROL 200-25 MCG/DOSE IH SCH (10:22)
[2018-09-27] MEDS: INSULIN GLARGINE,HUM.REC.ANLOG 1,000 UNIT/10 ML VIAL SUBCUT SCH (10:23)
[2018-09-27] MEDS: SACUBITRIL/VALSARTAN 49 MG/51 MG TABLET PO SCH (10:23)
[2018-09-27 11:32] VITALS: BP 132/78
--- NOTE | 2018-10-02 15:25 | PDOC DISCHARGE SUMMARY ---
General - Admit/Disc Date/PCP Admission Date/Primary Care Provider: 09/25/18 15:45 [facility] Discharge Date: 09/27/18 - Discharge Diagnosis (1) Torticollis Is this a current diagnosis for this admission?: Yes Summary: Improved. Recommend gentle stretching, heating pad. May use Tylenol, Flexeril, and/or Percocet as needed for pain. (2) Atrial fibrillation Is this a current diagnosis for this admission?: Yes Summary: Rate controlled and in NSR at this time. Continue home medication regiment. Patient is not chronically anticoagulated. (3) COPD (chronic obstructive pulmonary disease) Is this a current diagnosis for this admission?: Yes Summary: Stable and without exacerbation during admission. Continue home dose Brio and Spiriva. Continue supplemental oxygen as needed. (4) Chest pain Is this a current diagnosis for this admission?: Yes Summary: Resolved. Troponins were negative x4. No abnormal findings on EKG or telemetry monitoring. Patient had a recent normal stress test. Cardiac cath 05/30/18 showed normal coronaries. Continue home dose antihypertensives including isosorbide. Follow-up with established digital media strategist following discharge for further management. (5) Morbid obesity with BMI of 40.0-44.9, adult Is this a current diagnosis for this admission?: Yes Summary: Lifestyle modification and dietary discretion are advised. (6) Syncope Is this a current diagnosis for this admission?: Yes Summary: CT head is negative. Possibly vasovagal as the patient reports that her syncopal episode been immediately following muscle spasm to her neck (torticollis). Orthostatic blood pressures are normal. No abnormal rhythm changes noted on telemetry monitoring. (7) Tobacco dependence Is this a current diagnosis for this admission?: Yes Summary: Patient counseled and encouraged to quit smoking. (8) Bacteremia Is this a current diagnosis for this admission?: Yes Summary: 1 of 4 blood culture bottles grew staph epidermis. She was empirically placed on IV vancomycin; did receive 3 days of therapy. Repeat blood cultures were negative. - Additional Information Resuscitation Status: Full Code Discharge Diet: Cardiac, Diabetic Discharge Activity: Activity As Tolerated, Balance Activity w/Rest, Weigh Daily Prescriptions: Cyclobenzaprine HCl [Flexeril 10 mg Tablet] 10 mg PO Q8HP PRN #12 tablet PRN Reason: Nicotine [Nicoderm 21 mg/24 Hr Transderm Patch] 1 each TD DAILYP PRN #30 patch.td24 PRN Reason: Oxycodone HCl/Acetaminophen [Percocet 5-325 mg Tablet] 1 tab PO Q4HP PRN #12 tablet PRN Reason: Home Medications: Albuterol Sulfate [Proair HFA Inhalation Aerosol 8.5 gm MDI] 2 puff IH Q4HP PRN 09/24/18 Aspirin [Priscila Chewable Aspirin] 324 mg PO DAILY 09/24/18 Budesonide/Formoterol Fumarate [Symbicort HFA 160-4.5 mcg Inhaler 6 gm] 1 puff IH DAILY 09/24/18 Carvedilol [Coreg 6.25 mg Tablet] 12.5 mg PO Q12 09/24/18 Furosemide [Lasix 20 mg Tablet] 20 mg PO DAILY 09/24/18 Gabapentin [Neurontin] 600 mg PO Q12 09/24/18 Glipizide [Glucotrol 10 mg Tablet] 10 mg PO BID 09/24/18 Insulin Glargine,Hum.rec.anlog [Lantus Insulin 100 Unit/1 ml 10 ml] 40 unit SUBCUT Q12 09/24/18 Ipratropium/Albuterol Sulfate [Duoneb 3 ml Ampul] 3 ml NEB RTQ6 09/24/18 Isosorbide Mononitrate [Imdur 30 mg Tablet.er] 30 mg PO DAILY 09/24/18 Lidocaine [Lidoderm 5% (700 mg) Transdermal Patch] 2 patch TP QHS 09/24/18 Loratadine [Claritin 10 mg Tablet] 10 mg PO DAILY 09/24/18 Metformin HCl [Glucophage] 1,000 mg PO BID 09/24/18 Methocarbamol [Robaxin 500 mg Tablet] 500 mg PO BIDP PRN 09/24/18 Sacubitril/Valsartan [Entresto 49 mg/51 mg Tablet] 1 tab PO Q12 09/24/18 Tiotropium Rampart [Spiriva Respimat] 1 puff IH BID 09/24/18 Acetaminophen [Tylenol 325 mg Tablet] 650 mg PO Q4HP PRN tablet 09/27/18 Cyclobenzaprine HCl [Flexeril 10 mg Tablet] 10 mg PO Q8HP PRN #12 tablet 09/27/18 Nicotine [Nicoderm 21 mg/24 Hr Transderm Patch] 1 each TD DAILYP PRN #30 patch.td24 09/27/18 Oxycodone HCl/Acetaminophen [Percocet 5-325 mg Tablet] 1 tab PO Q4HP PRN #12 tablet 09/27/18 History of Present Illness History of Present Illness: Per H&P by Dr. tirado: DAYTON MENDOZA is a 37 year old female who presented to the emergency room, via EMS, with acute onset chest pain. She admits the onset of chest pain in the late afternoon which gradually worsened to become severe by this evening causing her to come to the emergency room. She describes the pain as a constantly present, substernal pressure/tightness without radiation. Her chest pain was accompanied by nausea, vomiting, severe diaphoresis and lightheadedness with a brief episode of syncope. She also admits the accompanying symptoms of a posterior head and neck ache and one episode of dyspnea at home while at rest. She admits prior similar episodes related to her congestive heart failure and her cardiomyopathy. She has not identified any aggravating or ameliorating factors for her chest pain. EMS treated the patient with oxygen and nitroglycerin without any change in her symptoms. In the emergency room she was found to have an EKG which showed no evidence of acute myocardial injury or ischemia and her initial cardiac enzymes were negative. She was subsequently admitted to the hospital, on observation status, for further evaluation and treatment. Physical Exam Vital Signs: Temp Pulse Resp BP Pulse Ox 98.6 F 80 20 124/72 98 09/27/18 07:38 09/27/18 07:38 09/27/18 07:38 09/27/18 07:38 09/27/18 07:38 Intake & Output 09/26/18 09/27/18 09/28/18 06:59 06:59 06:59 Intake Total 2840 1710 Output Total 500 Balance 2340 1710 Weight 147.2 kg General appearance: PRESENT: no acute distress, morbidly obese, well-developed, well-nourished Head exam: PRESENT: atraumatic, normocephalic Eye exam: PRESENT: conjunctiva pink, EOMI, PERRLA. ABSENT: scleral icterus Ear exam: PRESENT: normal external ear exam Mouth exam: PRESENT: moist, tongue midline Neck exam: ABSENT: carotid bruit, JVD, lymphadenopathy, thyromegaly Respiratory exam: PRESENT: clear to auscultation russell, symmetrical, unlabored, other - baseline oxygen. ABSENT: rales, rhonchi, wheezes Cardiovascular exam: PRESENT: RRR. ABSENT: diastolic murmur, rubs, systolic murmur Pulses: PRESENT: normal dorsalis pedis pul Vascular exam: PRESENT: normal capillary refill GI/Abdominal exam: PRESENT: normal bowel sounds, soft. ABSENT: distended, guarding, mass, organolmegaly, rebound, tenderness Rectal exam: PRESENT: deferred Extremities exam: PRESENT: full ROM. ABSENT: calf tenderness, clubbing, pedal edema Musculoskeletal exam: PRESENT: ambulatory Neurological exam: PRESENT: alert, awake, oriented to person, oriented to place, oriented to time, oriented to situation, CN II-XII grossly intact. ABSENT: motor sensory deficit Psychiatric exam: PRESENT: appropriate affect, normal mood. ABSENT: homicidal ideation, suicidal ideation Skin exam: PRESENT: dry, intact, warm. ABSENT: cyanosis, rash Results Laboratory Results: 09/27/18 05:37 09/27/18 05:37 09/26/18 09/27/18 09/27/18 09:29 05:37 05:37 WBC 11.5 H RBC 4.51 Hgb 11.2 L Hct 34.2 L MCV 76 L MCH 24.8 L MCHC 32.7 RDW 15.2 H Plt Count 235 Sodium 135.4 L Potassium 4.2 Chloride 101 Carbon Dioxide 26 Anion Gap 8 BUN 11 Creatinine 0.57 0.56 Est GFR ( Amer) > 60 > 60 Est GFR (Non-Af Amer) > 60 > 60 Glucose 188 H Calcium 8.2 L 09/23/18 21:00 Blood Blood Culture - Final Staphylococcus Epidermidis 09/23/18 09/23/18 09/23/18 19:45 19:45 23:01 Creatine Kinase 223 H CK-MB (CK-2) 0.89 Troponin I 0.020 0.027 09/23/18 09/23/18 09/24/18 23:01 23:01 05:08 Creatine Kinase 230 H 169 H CK-MB (CK-2) 0.90 Troponin I Cancelled 09/24/18 09/24/18 09/24/18 05:08 12:05 12:05 Creatine Kinase 144 H CK-MB (CK-2) 0.76 0.65 Troponin I 0.020 0.016 Impressions: Chest X-Ray 09/23/18 19:18 IMPRESSION: No acute findings. No focal lung consolidation. Head CT 09/24/18 00:00 IMPRESSION: NORMAL BRAIN CT WITHOUT CONTRAST. EVIDENCE OF ACUTE STROKE: NO. Qualifiers - * PATIENT BEING DISCHARGED WITH ANY OF THE FOLLOWING DIAGNOSIS: No Acute Heart Failure - Is this a Heart Failure Patient?: Yes Documentation of LVEF assessment?: Planned for after discharge LVEF < 40%?: No- if no continue to question #3 Plan Discharge Plan: Patient is discharged to home in stable condition. She is instructed: Follow up with your primary care provider within 1 week. Continue pulmonary rehabilitation. Follow-up with your established digital media strategist as scheduled. The muscle strain to your neck can last for several days; use ice/heat and gentle stretching. You may use [id number] Tylenol or Motrin for pain. You also have prescriptions for Robaxin and Flexeril; these are muscle relaxants. Use the Robaxin on days that you need to work or if you need to drive. Flexeril can be sedating so only take this medication if you can be at home and rest. Return to the emergency department as needed for concerning symptoms. Time Spent: Greater than 30 Minutes
== END 2018-09-27 11:58 | disposition home or self-care (01) | DRG 552 ==
LOC: ER 19:15 → INTOOBSV 21:22 → EH 21:22 → OBSVTOIN 21:22 → 5 23:46 → OBSVTOIN 09-25 15:45
PROVIDERS: ADMIT Internal Medicine; ATTEND Emergency Medicine
DX: M43.6 Torticollis (principal); I42.9 Cardiomyopathy, unspecified; I50.32 Chronic diastolic (congestive) heart failure; Z68.42 Body mass index [BMI] 45.0-49.9, adult; Z99.81 Dependence on supplemental oxygen; I11.0 Hypertensive heart disease with heart failure; E66.01 Morbid (severe) obesity due to excess calories; I48.0 Paroxysmal atrial fibrillation; J44.9 Chronic obstructive pulmonary disease, unspecified; E78.5 Hyperlipidemia, unspecified; E11.9 Type 2 diabetes mellitus without complications; F31.9 Bipolar disorder, unspecified; D64.9 Anemia, unspecified; R55 Syncope and collapse; R07.9 Chest pain, unspecified; F41.9 Anxiety disorder, unspecified; F17.200 Nicotine dependence, unspecified, uncomplicated; Z79.82 Long term (current) use of aspirin; Z79.4 Long term (current) use of insulin; Z88.0 Allergy status to penicillin; Z91.030 Bee allergy status; Z83.3 Family history of diabetes mellitus; Z82.49 Family history of ischemic heart disease and other diseases of the circulatory system
CPT/HCPCS: 36415; 70450; 71045; 80048; 80053; 80061; 80202; 82550; 82553; 82565; 82962; 83036; 83605; 83735; 84439; 84443; 84481; 84484; 85025; 85027; 87040; 87077; 87186; 93005; 93010; 96374; 99285; G0378; J1644; J1815; J1885; J2270; J2405; J3370; J3490; J7060

== ENCOUNTER → 2018-10-03 | Outpatient (CLI) | payer OTHER ==
[2018-10-03 08:20] LABS: ABSOLUTE BASOPHILS # (AUTO) 0.1 10^3/uL (0.0-0.2); ABSOLUTE EOSINOPHILS # (AUTO) 0.2 10^3/uL (0.0-0.6); ABSOLUTE MONOCYTES (AUTO) 0.9 10^3/uL (0.1-1.4); ABSOLUTE NEUT (AUTO) 9.2 10^3/uL (1.7-8.2); BASOPHILS % (AUTO) 0.5 % (0-2); EOSINOPHILS % (AUTO) 1.7 % (0-6); HEMATOCRIT 36.3 % (36.0-47.0); HEMOGLOBIN 11.9 g/dL (12.0-15.5); LYMPHOCYTES % (AUTO) 22.5 % (13-45); MEAN CORPUSCULAR HGB CONC 32.9 g/dL (32.0-36.0); MEAN CORPUSCULAR VOLUME 76 fl (80-97); MONOCYTES % (AUTO) 6.9 % (3-13); PLATELET COUNT 243 10^3/uL (150-450); RED BLOOD COUNT 4.78 10^6/uL (3.72-5.28); RED CELL DISTRIBUTION WIDTH 15.7 % (11.5-14.0); SEGMENTED NEUTROPHILS % (AUTO) 68.4 % (42-78); TOTAL CELLS COUNTED % (AUTO) 100 %; WHITE BLOOD COUNT 13.4 10^3/uL (4.0-10.5)
[2018-10-03 08:49] LABS: IRON(TIBC) 23.9 ug/dL (37-170)
== END ==
LOC: CCC 07:30
DX: D50.9 Iron deficiency anemia, unspecified (principal)
CPT/HCPCS: 36415; 82728; 83540; 83550; 84466; 85025

== ENCOUNTER 2018-11-19 17:13 | Emergency (ER) | payer OTHER ==
[2018-11-19 17:45] LABS: ABSOLUTE BASOPHILS # (AUTO) 0.1 10^3/uL (0.0-0.2); ABSOLUTE EOSINOPHILS # (AUTO) 0.2 10^3/uL (0.0-0.6); ABSOLUTE LYMPHOCYTES (AUTO) 2.7 10^3/uL (0.5-4.7); ABSOLUTE MONOCYTES (AUTO) 0.7 10^3/uL (0.1-1.4); ABSOLUTE NEUT (AUTO) 10.7 10^3/uL (1.7-8.2); BASOPHILS % (AUTO) 0.6 % (0-2); EOSINOPHILS % (AUTO) 1.5 % (0-6); HEMATOCRIT 38.6 % (36.0-47.0); HEMOGLOBIN 12.7 g/dL (12.0-15.5); LYMPHOCYTES % (AUTO) 18.5 % (13-45); MEAN CORPUSCULAR HEMOGLOBIN 24.4 pg (27.0-33.4); MEAN CORPUSCULAR HGB CONC 32.9 g/dL (32.0-36.0); MEAN CORPUSCULAR VOLUME 74 fl (80-97); MONOCYTES % (AUTO) 5.1 % (3-13); PLATELET COUNT 263 10^3/uL (150-450); SEGMENTED NEUTROPHILS % (AUTO) 74.3 % (42-78); TOTAL CELLS COUNTED % (AUTO) 100 %; WHITE BLOOD COUNT 14.3 10^3/uL (4.0-10.5)
[2018-11-19 18:00] LABS: ANION GAP 11 (5-19); BLOOD UREA NITROGEN 11 mg/dL (7-20); CALCIUM 8.7 mg/dL (8.4-10.2); CARBON DIOXIDE 23 mmol/L (22-30); CHLORIDE 102 mmol/L (98-107); GLUCOSE 355 mg/dL (75-110); POTASSIUM 4.1 mmol/L (3.6-5.0)
--- NOTE | 2018-11-19 18:21 | ER Document Report ---
ED General - General Chief Complaint: Breathing Difficulty Stated Complaint: DIFFICULTY BREATHING Time Seen by Provider: 11/19/18 17:30 Primary Care Provider: [facility] [Primary Care Provider] - Follow up as needed TRAVEL OUTSIDE OF THE [place] IN LAST 30 DAYS: No - HPI Notes: Patient is a 37-year-old female that presents to the emergency department for chief complaint of chest tightness and left leg bruising. Patient states over the last 3 days she has had charley horses in her left leg. Last night she noticed an area of swelling on the top of her left foot. She states she applied ice to this area and elevated it while she slept and when she woke up this morning she had some new areas of ecchymosis over her lateral left thigh. She denies injury or trauma to the left thigh. She states the areas are tender to palpation. Patient states after noticing the areas of ecchymosis on her leg she began having a tightness in her chest. She describes it as a s queezing sensation across the anterior aspect of her chest. It started around 9 or 10 this morning it has been constant since. She denies any fluctuation or resolution throughout the day of the tightness in her chest. She did take her blood pressure medications and use an albuterol nebulized treatment which also did not help. Patient wears 3 L nasal cannula oxygen at home and has not had to change her home O2. She denies palpitations, fever, cough, abdominal pain, nausea/vomiting and diarrhea. Past Medical History: Cardiomyopathy, congestive heart failure, diabetes, atrial fibrillation, hypertension, COPD Past Surgical History: Reviewed in chart Social History: Daily tobacco. Denies drug and alcohol use Family History: Reviewed and noncontributory for presenting illness Allergies: Reviewed, see documented allergy list. REVIEW OF SYSTEMS: CONSTITUTIONAL : No fever No chills No diaphoresis No recent illness EENT: No vision changes No congestion No sore throat CARDIOVASCULAR: chest pain No palpitations RESPIRATORY: shortness of breath No cough No difficulty breathing GASTROINTESTINAL: No abdominal pain No nausea No vomiting No diarrhea GENITOURINARY: No dysuria No hematuria No difficulty urinating MUSCULOSKELETAL: No back pain leg pain No arm pain SKIN: No rashes No lesions LYMPHATIC: No swollen, enlarged glands. NEUROLOGICAL: No lightheadedness No headache No weakness No paresthesias PSYCHIATRIC: No anxiety No depression PHYSICAL EXAMINATION: Vital signs reviewed, nursing noted reviewed. GENERAL: Well-appearing, obese and in no acute distress. HEAD: Atraumatic, normocephalic. EYES: Eyes appear normal, extraocular movements intact, sclera anicteric, conjunctiva are normal. ENT: nares patent, oropharynx clear without exudates. Moist mucous membranes. NECK: Normal range of motion, supple without lymphadenopathy LUNGS: Breath sounds diminished to auscultation bilaterally and equal. No wheezes rales or rhonchi. HEART: Regular rate and rhythm without murmurs. +2/4 bilateral DP and PT pulses ABDOMEN: Soft, nontender, normoactive bowel sounds. No rebound, guarding, or rigidity. EXTREMITIES: No long bone tenderness or deformity, good range of motion, no pitting or edema. NEUROLOGICAL: No focal neurological deficits. Moves all extremities spontaneously Motor and sensory grossly intact on exam. PSYCH: Normal mood, normal affect. SKIN: Warm, Dry, normal turgor, multiple small areas of ecchymosis over lateral left thigh that are tender to palpation - Related Data Allergies/Adverse Reactions: amoxicillin [Amoxicillin] Allergy (Severe, Verified 07/11/18 21:16) Anaphylaxis Penicillins Allergy (Severe, Verified 07/11/18 21:16) Anaphylaxis Bees/Wasp Allergy (Severe, Uncoded 07/11/18 21:16) Anaphylaxis Past Medical History - Social History Smoking Status: Never Smoker Family History: CAD, DM, Hypertension, Malignancy Patient has suicidal ideation: No Patient has homicidal ideation: No - Past Medical History Cardiac Medical History: Reports: Hx Atrial Fibrillation, Hx Congestive Heart Failure, Hx Hypercholesterolemia, Hx Hypertension Denies: Hx Coronary Artery Disease, Hx Heart Attack Pulmonary Medical History: Reports: Hx Asthma, Hx Bronchitis, Hx COPD, Hx Pneumonia, Hx Respiratory Failure - chronic: on 3 L/min of oxygen per nasal cannula, continuously. Neurological Medical History: Denies: Hx Cerebrovascular Accident, Hx Seizures Endocrine Medical History: Reports: Hx Diabetes Mellitus Type 2 - insulin dependent. Denies: Hx Diabetes Mellitus Type 1, Hx Hyperthyroidism, Hx Hypothyroidism Renal/ Medical History: Reports: Hx Kidney Stones. Denies: Hx Peritoneal Dialysis GI Medical History: Denies: Hx Cirrhosis, Hx Crohn's Disease, Hx Hepatitis, Hx Ulcerative Colitis Musculoskeletal Medical History: Denies Hx Arthritis, Denies Hx Fibromyalgia Skin Medical History: Denies Hx Eczema, Denies Hx Psoriasis Psychiatric Medical History: Reports: Hx Anxiety, Hx Bipolar Disorder, Hx Depression Infectious Medical History: Denies: Hx Hepatitis Past Surgical History: Reports: Hx Abdominal Surgery - hernia, Hx Cardiac Catheterization, Hx Cholecystectomy, Hx Herniorrhaphy, Hx Umbilical Hernia - Immunizations Immunizations up to date: No Hx Diphtheria, Pertussis, Tetanus Vaccination: Yes Hx Pneumococcal Vaccination: 11/12/17 Physical Exam - Vital signs Vitals: Temp Resp BP Pulse Ox 98.5 F 19 152/130 H 98 11/19/18 17:21 11/19/18 17:21 11/19/18 17:21 11/19/18 17:21 Course - Re-evaluation Re-evalutation: 11/19/18 18:16 Vitals reviewed. Nursing notes reviewed. Patient is alert and oriented. She is in no acute distress. Patient's EKG shows normal sinus rhythm 11/19/18 19:12 Patient reevaluated. She was asleep when I entered the room and when woken states she is feeling better. She was hypertensive at presentation however the blood pressure cuff was on her forearm, when this was appropriately placed her repeat blood pressure was improved. Patient's chest tightness has been constant for the last 7 to 8 hours and her troponin is at her baseline. She had a normal heart catheterization in May of this year and has no known CAD. She also had recent hospitalization for chest pain with repeat troponins that were unchanging. Patient's symptoms today are not consistent with acute ACS requiring further hospitalization. Venous Doppler of her left lower extremity is negative. She has normal arterial flow to the left lower externally as well. The remainder of her work-up is unremarkable. She is currently oxygenating well on her home O2. Her symptoms have improved since she arrived in the emergency room. She has remained hemodynamically stable. At this point the etiology of the ecchymosis to her left thigh is unknown however encouraged her to follow closely for reevaluation with her PCP. Patient told to return for new or worsening symptoms including increasing chest pain or shortness of breath. Patient in agreement with this plan of care and will call her doctor in the morning. She is stable at discharge. Laboratory 11/19/18 11/19/18 11/19/18 17:26 17:26 17:26 WBC 14.3 H RBC 5.20 Hgb 12.7 Hct 38.6 MCV 74 L MCH 24.4 L MCHC 32.9 RDW 16.0 H Plt Count 263 Lymph % (Auto) 18.5 Cataño % (Auto) 5.1 Eos % (Auto) 1.5 Baso % (Auto) 0.6 Absolute Neuts (auto) 10.7 H Absolute Lymphs (auto) 2.7 Absolute Monos (auto) 0.7 Absolute Eos (auto) 0.2 Absolute Basos (auto) 0.1 Seg Neutrophils % 74.3 Sodium 135.6 L Potassium 4.1 Chloride 102 Carbon Dioxide 23 Anion Gap 11 BUN 11 Creatinine 0.64 Est GFR ( Amer) > 60 Est GFR (MDRD) Non-Af > 60 Glucose 355 H Calcium 8.7 Troponin I 0.043 Chest X-Ray 11/19/18 17:23 IMPRESSION: Cardiomegaly without acute abnormality of the lungs in AP projection. Venous Doppler Study 11/19/18 18:07 IMPRESSION: Negative examination for deep venous thrombosis in the left lower extremity. - Vital Signs Vital signs: Temp Pulse Resp BP Pulse Ox 98.5 F 19 152/130 H 99 11/19/18 17:21 11/19/18 17:21 11/19/18 17:21 11/19/18 17:24 - Laboratory Result Diagrams: 11/19/18 17:26 11/19/18 17:26 Laboratory results interpreted by me: 11/19/18 11/19/18 17:26 17:26 WBC 14.3 H MCV 74 L MCH 24.4 L RDW 16.0 H Absolute Neuts (auto) 10.7 H Sodium 135.6 L Glucose 355 H - EKG Interpretation by Me Additional EKG results interpreted by me: 11/19/18 18:22 Interpreted by myself 1723: Normal sinus rhythm, rate 96, normal axis, no ectopy, no STEMI, unchanged from 09/24/2018 Discharge - Discharge Clinical Impression: Chest tightness Superficial bruising of lower leg Qualifiers: Encounter type: initial encounter Laterality: left Qualified Code(s): S80.12XA - Contusion of left lower leg, initial encounter Condition: Stable Disposition: HOME, SELF-CARE Instructions: Chest Pain of Unclear Cause ([facility]) Additional Instructions: Please return to the emergency department if you have any worsening, or concern of your symptoms. Please return to the emergency department if you develop chest pain, difficulty breathing, severe abdominal pain, or ongoing vomiting. Please follow-up with your primary care physician in 2-3 days and any other recommended physicians. If prescribed, take all medications as directed. If you have any questions or concerns do not hesitate to return the emergency department for evaluation. Referrals: [facility] [Primary Care Provider] - Follow up tomorrow
--- NOTE | 2018-11-19 18:28 | RADIOLOGY REPORT (SQ) ---
EXAM DESCRIPTION: CHEST SINGLE VIEW COMPLETED DATE/TIME: 11/19/2018 6:17 pm REASON FOR STUDY: SOB COMPARISON: 09/23/2018 EXAM PARAMETERS: NUMBER OF VIEWS: One view. TECHNIQUE: Single frontal radiographic view of the chest acquired. RADIATION DOSE: NA LIMITATIONS: None. FINDINGS: LUNGS AND PLEURA: No opacities, masses or pneumothorax. No pleural effusion. MEDIASTINUM AND HILAR STRUCTURES: No masses. Contour normal. HEART AND VASCULAR STRUCTURES: Cardiomegaly. BONES: No acute findings. HARDWARE: None in the chest. OTHER: No other significant finding. IMPRESSION: Cardiomegaly without acute abnormality of the lungs in AP projection. TECHNICAL DOCUMENTATION: JOB ID: [id number] [employer]- All Rights Reserved Reading location - IP/workstation name: [email or web address]
--- NOTE | 2018-11-19 18:44 | EKG REPORT ---
SEVERITY:- ABNORMAL ECG - SINUS RHYTHM ABNORMAL Q SUGGESTS ANTERIOR INFARCT NONSPECIFIC T ABNORMALITIES, LATERAL LEADS : Confirmed by: Tan Mobley 19-Nov-2018 18:43:58
--- NOTE | 2018-11-19 19:01 | RADIOLOGY REPORT (SQ) ---
EXAM DESCRIPTION: VENOUS UNILATERAL LOWER COMPLETED DATE/TIME: 11/19/2018 6:53 pm REASON FOR STUDY: pain left leg / Hx clots COMPARISON: None. TECHNIQUE: Dynamic and static nelson scale and color images acquired of the left leg venous system. Se lected spectral images acquired with additional compression and augmentation maneuvers. The contralat eral common femoral vein and saphenofemoral junction were also imaged. Images stored on PACS. LIMITATIONS: None. FINDINGS: COMMON FEMORAL: Normal phasicity, compression and augmentation. No visualized echogenic ma terial on nelson scale. No defects on color images. FEMORAL: Normal compression and augmentation. No visualized echogenic material on nelson scale. No defe cts on color images. POPLITEAL: Normal compression, augmentation. No visualized echogenic material on nelson scale. No defec ts on color images. CALF VESSELS: Normal compression, augmentation. No visualized echogenic material on nelson scale. No de fects on color images. GSV and SSV: Normal compression, augmentation. No visualized echogenic material on nelson scale. No def ects on color images. ANY DEEP VENOUS INSUFFICIENCY: Not evaluated. ANY EVIDENCE OF POPLITEAL CYST: No. OTHER: No other significant finding. CONTRALATERAL COMMON FEMORAL VEIN AND SAPHENOFEMORAL JUNCTION: Normal phasicity, compression and augmentation. No visualized echogenic material on nelson scale. No de fects on color images. IMPRESSION: Negative examination for deep venous thrombosis in the left lower extremity. TECHNICAL DOCUMENTATION: JOB ID: [id number] [employer]- All Rights Reserved Reading location - IP/workstation name: [email or web address]
[2018-11-19 19:13] VITALS: BP 169/107
== END 2018-11-19 19:29 | disposition home or self-care (01) ==
LOC: ER 17:13
DX: S80.12XA Contusion of left lower leg, initial encounter (principal); R07.9 Chest pain, unspecified; R06.9 Unspecified abnormalities of breathing; M79.89 Other specified soft tissue disorders; X58.XXXA Exposure to other specified factors, initial encounter; Z79.899 Other long term (current) drug therapy; Z99.81 Dependence on supplemental oxygen; I42.9 Cardiomyopathy, unspecified; I50.9 Heart failure, unspecified; I48.91 Unspecified atrial fibrillation; I11.0 Hypertensive heart disease with heart failure; J44.9 Chronic obstructive pulmonary disease, unspecified; E11.9 Type 2 diabetes mellitus without complications; Z79.4 Long term (current) use of insulin
CPT/HCPCS: 36415; 71045; 80048; 84484; 85025; 93005; 93010; 93971; 99285

== ENCOUNTER 2018-11-25 16:57 | Emergency (ER) | payer OTHER ==
[2018-11-25] MEDS ORDERED: LIDOCAINE 1% INJ-PF (10 MG/ML) 30 ML SDV INJ ONE (18:03)
[2018-11-25] MEDS ORDERED: LORAZEPAM 0.5 MG TABLET PO ONE (18:04)
--- NOTE | 2018-11-25 18:10 | ER Document Report ---
HPI - HPI Time Seen by Provider: 11/25/18 17:58 Pain Level: 3 Notes: Patient is a 37-year-old female with an extensive medical history including A. fib, congestive heart failure, cardiomyopathy, hypertension, anxiety who presents complaining of possible abscess to her left groin area that has been present for the past several days. Patient states that the pain does not radiate. She has not been able to get any purulent material from it. Patient states that she was using an ice pack intermittently and believes that she may have caused a little burn to her skin on her left thigh. She has no other concerns or complaints. She is able to eat and drink without difficulty. She has had abscesses in the past requiring incision and drainage. Denies any headache, fever, neck pain, URI, sore throat, chest pain, palpitations, syncope, cough, acute shortness of breath, wheeze, dyspnea, abdominal pain, nausea/vomiting/diarrhea, urinary retention, dysuria, hematuria. - ROS Systems Reviewed and Negative: Yes All other systems reviewed and negative - REPRODUCTIVE Reproductive: DENIES: : Past Medical History - Social History Smoking Status: Unknown if Ever Smoked Family History: CAD, DM, Hypertension, Malignancy - Past Medical History Cardiac Medical History: Reports: Hx Atrial Fibrillation, Hx Congestive Heart Failure, Hx Hypercholesterolemia, Hx Hypertension Denies: Hx Coronary Artery Disease, Hx Heart Attack Pulmonary Medical History: Reports: Hx Asthma, Hx Bronchitis, Hx COPD, Hx Pneumonia, Hx Respiratory Failure - chronic: on 3 L/min of oxygen per nasal cannula, continuously. Neurological Medical History: Denies: Hx Cerebrovascular Accident, Hx Seizures Endocrine Medical History: Reports: Hx Diabetes Mellitus Type 2 - insulin dependent. Denies: Hx Diabetes Mellitus Type 1, Hx Hyperthyroidism, Hx Hypothyroidism Renal/ Medical History: Reports: Hx Kidney Stones. Denies: Hx Peritoneal Dialysis GI Medical History: Denies: Hx Cirrhosis, Hx Crohn's Disease, Hx Hepatitis, Hx Ulcerative Colitis Musculoskeletal Medical History: Denies Hx Arthritis, Denies Hx Fibromyalgia Skin Medical History: Denies Hx Eczema, Denies Hx Psoriasis Psychiatric Medical History: Reports: Hx Anxiety, Hx Bipolar Disorder, Hx Depression Infectious Medical History: Denies: Hx Hepatitis Past Surgical History: Reports: Hx Abdominal Surgery - hernia, Hx Cardiac Catheterization, Hx Cholecystectomy, Hx Herniorrhaphy, Hx Umbilical Hernia - Immunizations Immunizations up to date: No Hx Diphtheria, Pertussis, Tetanus Vaccination: Yes Hx Pneumococcal Vaccination: 11/12/17 Vertical Provider Document - CONSTITUTIONAL Agree With Documented VS: Yes Notes: PHYSICAL EXAMINATION: Accompanied by female miguel Nelsy GENERAL: Well-appearing, well-nourished and in no acute distress. LUNGS: Breath sounds clear to auscultation bilaterally and equal. No wheezes rales or rhonchi. HEART: Regular rate and rhythm without murmurs, rubs, gallops. ABDOMEN: Soft, nontender, nondistended abdomen. No guarding, no rebound. Nor mal bowel sounds present. No CVA tenderness bilaterally. Musculoskeletal: FROM to passive/active. Strength 5+/5. Extremities: No cyanosis, clubbing, or edema b/l. Peripheral pulses 2+. Capillary refill less than 3 seconds. NEUROLOGICAL: Cranial nerves grossly intact. Normal speech, normal gait. Normal sensory, motor exams PSYCH: Normal mood, normal affect. SKIN: left lower abd/inguinal area: there is an indurated, erythemic, fluctuant abscess noted with tenderness to palp. No streaks. No discharge. - INFECTION CONTROL TRAVEL OUTSIDE OF THE [place] IN LAST 30 DAYS: No Course - Re-evaluation Re-evalutation: 11/25/18 Patient is an afebrile, well-hydrated, 37-year-old female who presents to the emergency department with an abscess to her left groin needing incision and drainage. Vitals are acceptable without significant tachycardia, tachypnea, or hypoxia. PE is otherwise unremarkable. Patient is nontoxic-appearing and is tolerating p.o. without difficulty. Incision and drainage was performed successfully without any complications and packing was placed. Wound dressing was placed and wound instructions reviewed. Wound culture was obtained. No further labs or imaging warranted. Low suspicion for any sepsis, meningitis, SJS, or other systemic emergent condition at this time. Patient to monitor symptoms for any acute changes and seek medical attention if so. Recheck with your PCM in 2-3 days. Consider consult with the general surgeon. Return to the ED with any worsening/concerning symptoms as reviewed. Patient is in agreement. - Vital Signs Vital signs: Temp Pulse Resp BP Pulse Ox 99.6 F 102 H 21 H 150/95 H 97 11/25/18 17:05 11/25/18 17:05 11/25/18 17:05 11/25/18 17:05 11/25/18 17:05 Procedures - Incision and Drainage Left Groin Type: Simple Anesthetic type: 1% Lidocaine mL's of anesthetic: 5 Blade size: 11 I&D procedure: Iodoform packing placed, Sterile dressing applied, Other - Chlorhexidine/saline Incision Method: Incision made by scalpel Amount/type of drainage: Moderate purulent Discharge - Discharge Clinical Impression: Abscess Condition: Stable Disposition: HOME, SELF-CARE Instructions: Abscess ([facility]), Post Incision and Drainage Additional Instructions: Do not shower or bathe for 24 hours. After 24 hours you may shower but no submersion of the wound under water. Keep the original dressing on the wound for 24 hours unless the drainage soaks through. Change the dressing daily thereafter and use a small amount of triple antibiotic ointment over the open wound. See your PCM in 2-3 days for recheck and continue direction for wound packing. Monitor for any signs of worsening pain or redness, streaks, and/or fever. Return to the ED if noticing any of the above symptoms or as needed. Take medications as directed. Prescriptions: Clindamycin HCl [Cleocin 300 mg Capsule] 300 mg PO TID #30 capsule Forms: Elevated Blood Pressure Referrals: [facility] [Primary Care Provider] - Follow up as needed
[2018-11-25] MEDS ORDERED: CLINDAMYCIN HCL 150 MG CAPSULE PO ONE (19:38)
[2018-11-25 20:01] VITALS: BP 148/81
== END 2018-11-25 20:08 | disposition home or self-care (01) ==
LOC: ER 16:57
DX: L02.214 Cutaneous abscess of groin (principal); E11.9 Type 2 diabetes mellitus without complications; I10 Essential (primary) hypertension; J44.9 Chronic obstructive pulmonary disease, unspecified
CPT/HCPCS: 99283; 87070; 87205; 87075; 87077; 10060; A6266; J3490

== ENCOUNTER → 2018-12-06 | Outpatient (CLI) | payer OTHER ==
[2018-12-06 12:37] LABS: ANION GAP 8 (5-19); BLOOD UREA NITROGEN 11 mg/dL (7-20); CALCIUM 8.6 mg/dL (8.4-10.2); CARBON DIOXIDE 23 mmol/L (22-30); CHLORIDE 105 mmol/L (98-107); GLUCOSE 194 mg/dL (75-110); POTASSIUM 4.3 mmol/L (3.6-5.0)
== END ==
LOC: CCC 11:27
DX: I50.9 Heart failure, unspecified (principal)
CPT/HCPCS: 36415; 80048; 83880

== ENCOUNTER 2019-01-20 21:06 | Emergency (ER) | payer OTHER ==
[2019-01-20 21:40] LABS: ABSOLUTE BASOPHILS # (AUTO) 0.1 10^3/uL (0.0-0.2); ABSOLUTE EOSINOPHILS # (AUTO) 0.2 10^3/uL (0.0-0.6); ABSOLUTE LYMPHOCYTES (AUTO) 2.9 10^3/uL (0.5-4.7); ABSOLUTE MONOCYTES (AUTO) 0.8 10^3/uL (0.1-1.4); ABSOLUTE NEUT (AUTO) 8.7 10^3/uL (1.7-8.2); BASOPHILS % (AUTO) 0.4 % (0-2); EOSINOPHILS % (AUTO) 1.9 % (0-6); HEMATOCRIT 40.1 % (36.0-47.0); LYMPHOCYTES % (AUTO) 22.9 % (13-45); MEAN CORPUSCULAR HEMOGLOBIN 24.6 pg (27.0-33.4); MEAN CORPUSCULAR HGB CONC 32.5 g/dL (32.0-36.0); MEAN CORPUSCULAR VOLUME 76 fl (80-97); MONOCYTES % (AUTO) 6.1 % (3-13); PLATELET COUNT 297 10^3/uL (150-450); RED CELL DISTRIBUTION WIDTH 16.8 % (11.5-14.0); SEGMENTED NEUTROPHILS % (AUTO) 68.7 % (42-78); TOTAL CELLS COUNTED % (AUTO) 100 %; WHITE BLOOD COUNT 12.6 10^3/uL (4.0-10.5)
--- NOTE | 2019-01-20 21:41 | ER Document Report ---
ED General - General Chief Complaint: Cough Stated Complaint: FEVER Time Seen by Provider: 01/20/19 21:28 Primary Care Provider: HAYDEE ADAM MD [Primary Care Provider] - Follow up as needed Notes: Ms. Mccallum is a 38 yo F w/ extensive medical history including COPD, morbid obesity, diabetes, TAMEKA, asthma, A. fib, diabetes and multiple other medical problems presenting to the ED for chest pain and shortness of breath. Patient states that she has been sick with a cough for the past 4 days. She endorses subjective fevers and chills and a high as her oral temp got was 100.3 orally. She states that the cough is productive of yellow sputum. She also endorses chest pain secondary to ongoing coughing. Patient denies any orthopnea or lower extremity edema. She is been taking her medications as prescribed. Today she had worsening chest pain from all the coughing so she took 2 sublingual nitros as well as 1 g of Tylenol prior to arrival. Patient denies any nausea, vomiting or diarrhea. She denies any abdominal pain. TRAVEL OUTSIDE OF THE [place] IN LAST 30 DAYS: No - Related Data Allergies/Adverse Reactions: amoxicillin [Amoxicillin] Allergy (Severe, Verified 11/25/18 17:01) Anaphylaxis Penicillins Allergy (Severe, Verified 11/25/18 17:01) Anaphylaxis Bees/Wasp Allergy (Severe, Uncoded 11/25/18 17:01) Anaphylaxis Past Medical History - Social History Smoking Status: Never Smoker Family History: CAD, DM, Hypertension, Malignancy Patient has suicidal ideation: No Patient has homicidal ideation: No - Past Medical History Cardiac Medical History: Reports: Hx Atrial Fibrillation, Hx Congestive Heart Failure, Hx Hypercholesterolemia, Hx Hypertension Denies: Hx Coronary Artery Disease, Hx Heart Attack Pulmonary Medical History: Reports: Hx Asthma, Hx Bronchitis, Hx COPD, Hx Pneumonia, Hx Respiratory Failure - chronic: on 3 L/min of oxygen per nasal cannula, continuously. Neurological Medical History: Denies: Hx Cerebrovascular Accident, Hx Seizures Endocrine Medical History: Reports: Hx Diabetes Mellitus Type 2 - insulin dependent. Denies: Hx Diabetes Mellitus Type 1, Hx Hyperthyroidism, Hx Hypothyroidism Renal/ Medical History: Reports: Hx Kidney Stones. Denies: Hx Peritoneal Dialysis GI Medical History: Denies: Hx Cirrhosis, Hx Crohn's Disease, Hx Hepatitis, Hx Ulcerative Colitis Musculoskeletal Medical History: Denies Hx Arthritis, Denies Hx Fibromyalgia Skin Medical History: Denies Hx Eczema, Denies Hx Psoriasis Psychiatric Medical History: Reports: Hx Anxiety, Hx Bipolar Disorder, Hx Depression Infectious Medical History: Denies: Hx Hepatitis Past Surgical History: Reports: Hx Abdominal Surgery - hernia, Hx Cardiac Catheterization, Hx Cholecystectomy, Hx Herniorrhaphy, Hx Umbilical Hernia - Immunizations Immunizations up to date: No Hx Diphtheria, Pertussis, Tetanus Vaccination: Yes Hx Pneumococcal Vaccination: 11/12/17 Review of Systems - Review of Systems Constitutional: See HPI EENT: No symptoms reported Cardiovascular: No symptoms reported Respiratory: See HPI Gastrointestinal: See HPI Genitourinary: No symptoms reported Female Genitourinary: No symptoms reported Musculoskeletal: No symptoms reported Skin: No symptoms reported Hematologic/Lymphatic: No symptoms reported Neurological/Psychological: No symptoms reported Physical Exam - Vital signs Vitals: Temp Resp BP Pulse Ox 98.4 F 26 H 156/110 H 99 01/20/19 21:17 01/20/19 21:17 01/20/19 21:17 01/20/19 21:17 Interpretation: Hypertensive, Tachycardic, Tachypneic - General General appearance: Appears well, Alert Notes: Morbidly obese - HEENT Head: Normocephalic, Atraumatic Eyes: Normal Pupils: PERRL - Respiratory Respiratory status: No respiratory distress Chest status: Nontender Breath sounds: Decreased air movement, Nonproductive cough, Wheezing - Mild expiratory wheezes and throughout Chest palpation: Normal - Cardiovascular Rhythm: Tachycardia Heart sounds: Normal auscultation Murmur: No - Abdominal Inspection: Normal Distension: No distension Bowel sounds: Normal Tenderness: Nontender Organomegaly: No organomegaly - Back Back: Normal, Nontender - Extremities General upper extremity: Normal inspection, Nontender, Normal color, Normal ROM, Normal temperature General lower extremity: Normal inspection, Nontender, Normal color, Normal ROM, Normal temperature, Normal weight bearing. No: Edema, Shawn's sign - Neurological Neuro grossly intact: Yes Cognition: Normal Orientation: AAOx4 Cassandra Coma Scale Eye Opening: Spontaneous Cassandra Coma Scale Verbal: Oriented Cassandra Coma Scale Motor: Obeys Commands [place] Coma Scale Total: 15 Speech: Normal Motor strength normal: LUE, RUE, LLE, RLE Sensory: Normal - Psychological Associated symptoms: Normal affect, Normal mood - Skin Skin Temperature: Warm Skin Moisture: Dry Skin Color: Normal Course - Re-evaluation Re-evalutation: 01/20/19 21:40 Attempted to go evaluate the patient however she is already been taken to chest x-ray. Will reevaluate when patient result returns. Patient is generally well-appearing nontoxic. Initial vitals notable for tachypnea, tachycardia and mildly elevated blood pressure. EKG nonischemic. Differential diagnosis includes URI, COPD exacerbation, pneumonia, CHF exacerbation Patient noticed to have wheezing expiratory throughout although mild. She endorses a cough which she states she is intermittently productive sometimes white sometimes yellow sputum. Chest x-ray negative for acute process. CBC does show mild leukocytosis however patient always has elevated white count and there is no left shift today. CMP within normal limits however the patient is noted to be hyperglycemic. She was given a small bolus of fluids. She was also given duo nebs as well as Solu-Medrol for likely COPD exacerbation. 01/21/19 01:49 Patient feels improvement after DuoNeb's. Already administered Solu-Medrol after initial evaluation. Patient was also given a small bolus of 500 mL's of fluid. Repeat glucose is 277. Patient will be discharged with prednisone short course. Patient also discharged with short course of azithromycin Z-Bryce. Patient given return precautions and instructed to follow-up with her primary care doctor. Likely COPD exacerbation. - Vital Signs Vital signs: Temp Pulse Resp BP Pulse Ox 98.4 F 17 159/109 H 98 01/20/19 21:17 01/21/19 01:45 01/21/19 01:45 01/21/19 01:45 - Laboratory Result Diagrams: 01/20/19 21:24 01/20/19 21:24 Laboratory results interpreted by me: 01/20/19 01/20/19 01/20/19 21:24 21:24 21:24 WBC 12.6 H RBC 5.30 H MCV 76 L MCH 24.6 L RDW 16.8 H Absolute Neuts (auto) 8.7 H Carbonic Acid ABG pCO2 Carbon Dioxide 20 L Est GFR (MDRD) Non-Af 58 L Glucose 325 H POC Glucose Creatine Kinase 162 H NT-Pro-B Natriuret Pep 900 H Urine Glucose (UA) Urine Ketones 01/20/19 01/21/19 01/21/19 21:54 00:00 01:40 WBC RBC MCV MCH RDW Absolute Neuts (auto) Carbonic Acid 1.04 L ABG pCO2 34.6 L Carbon Dioxide Est GFR (MDRD) Non-Af Glucose POC Glucose 277 H Creatine Kinase NT-Pro-B Natriuret Pep Urine Glucose (UA) >=500 H Urine Ketones TRACE H Discharge - Discharge Clinical Impression: COPD exacerbation, URI (upper respiratory infection) Condition: Good Disposition: HOME, SELF-CARE Instructions: Chronic Obstructive Lung Disease ([facility]), Upper Respiratory Illness ([facility]) Additional Instructions: Please take a short course of prednisone as prescribed. I also prescribed you with a azithromycin Z-Bryce for the COPD exacerbation. Take the full course as prescribed. I would recommend that you take azithromycin with food to prevent any nausea. Follow-up with your primary care doctor as needed. You can use your albuterol inhaler as needed for shortness of breath. Prescriptions: Prednisone [Deltasone 20 mg Tablet] 3 tab PO DAILY 4 Days tablet Azithromycin [Zithromax] 250 mg PO DAILY #6 tablet Referrals: HAYDEE ADAM MD [Primary Care Provider] - Follow up as needed
[2019-01-20 21:56] LABS: ALBUMIN 3.9 g/dL (3.5-5.0); ALKALINE PHOSPHATASE 73 U/L (38-126); ANION GAP 12 (5-19); ASPARTATE AMINO TRANSFERASE 21 U/L (14-36); BILIRUBIN,DIRECT 0.2 mg/dL (0.0-0.4); BILIRUBIN,TOTAL 0.4 mg/dL (0.2-1.3); BLOOD UREA NITROGEN 13 mg/dL (7-20); CARBON DIOXIDE 20 mmol/L (22-30); CHLORIDE 106 mmol/L (98-107); CREATINE KINASE 162 U/L (30-135); GLUCOSE 325 mg/dL (75-110); POTASSIUM 4.5 mmol/L (3.6-5.0); TOTAL PROTEIN 6.8 g/dL (6.3-8.2)
[2019-01-20 21:58] LABS: INTERNATIONAL RATION (INR) 1.13; PROTHROMBIN TIME 14.5 SEC (11.4-15.4)
[2019-01-20 22:08] LABS: CREATINE KINASE MB 1.32 ng/mL (<4.55); TROPONIN I 0.08 ng/mL
[2019-01-20 22:18] LABS: APPEARANCE,URINE CLEAR; BILIRUBIN,URINE NEGATIVE (NEGATIVE); COLOR,URINE STRAW; GLUCOSE, URINE >=500 mg/dL (NEGATIVE); KETONES,URINE TRACE mg/dL (NEGATIVE); LEUKOCYTE ESTERASE,URINE NEGATIVE (NEGATIVE); NITRITE,URINE NEGATIVE (NEGATIVE); PROTEIN,URINE NEGATIVE (NEGATIVE); URINE SPECIFIC GRAVITY 1.023; UROBILINOGEN,URINE NEGATIVE mg/dL (<2.0)
--- NOTE | 2019-01-20 22:30 | RADIOLOGY REPORT (SQ) ---
EXAM: XR CHEST 2 VIEWS CLINICAL INDICATION: 38-year-old female with shortness of breath. TECHNIQUE: Two-view, PA and lateral projections of the chest were obtained. COMPARISON: 12/22/2017. FINDINGS: Stable cardiac and mediastinal silhouette. Heart size is top normal. Low lung volumes grossly clear without focal opacity, pneumothorax or pleural effusions. The visualized bones are within normal limits. IMPRESSION: No acute cardiopulmonary abnormalities.
[2019-01-20] MEDS ORDERED: NORMAL SALINE 500 ML IV ONE (22:56)
[2019-01-20] MEDS ORDERED: IPRATROPIUM/ALBUTEROL 0.5-2.5 MG/3 ML AMPUL NEB ONE (22:56)
[2019-01-20] MEDS ORDERED: METHYLPREDNISOLONE INJ 125 MG/2 ML SDV IV ONE (22:57)
[2019-01-21 00:16] LABS: ARTERIAL BLOOD BASE EXCESS -0.6 mmol/L; ARTERIAL BLOOD H2CO3 1.04 mmol/L (1.05-1.35); ARTERIAL BLOOD O2 SATURATION 97.4 % (94-98); ARTERIAL BLOOD PCO2 34.6 mmHg (35-45); ARTERIAL BLOOD PH 7.44 (7.35-7.45); ARTERIAL BLOOD PO2 92.7 mmHg (80-100)
[2019-01-21 00:22] LABS: ARTERIAL BLOOD FIO2 2L
[2019-01-21 01:48] VITALS: BP 159/109
--- NOTE | 2019-01-21 23:21 | EKG REPORT ---
SEVERITY:- ABNORMAL ECG - SINUS TACHYCARDIA ABNORMAL Q SUGGESTS ANTERIOR INFARCT BORDERLINE T ABNORMALITIES, ANTERIOR LEADS : Confirmed by: Tan Mobley 21-Jan-2019 23:20:17
== END 2019-01-21 02:30 | disposition home or self-care (01) ==
LOC: ER 21:06
DX: J44.1 Chronic obstructive pulmonary disease with (acute) exacerbation (principal); J06.9 Acute upper respiratory infection, unspecified; R50.9 Fever, unspecified; E66.01 Morbid (severe) obesity due to excess calories; Z88.0 Allergy status to penicillin; I48.91 Unspecified atrial fibrillation; I50.9 Heart failure, unspecified; I11.0 Hypertensive heart disease with heart failure; E78.00 Pure hypercholesterolemia, unspecified; E11.9 Type 2 diabetes mellitus without complications; Z79.4 Long term (current) use of insulin; Z87.442 Personal history of urinary calculi; Z90.49 Acquired absence of other specified parts of digestive tract
CPT/HCPCS: 93005; 36415; 82553; 82962; 82803; 82550; 85025; 85610; 81025; 80053; 81001; 84484; 83880; 71046; 93010; J2930; J7040; J7620; 94640; 96361; 96374; 99284

== ENCOUNTER 2019-03-07 11:24 | Emergency (ER) | payer OTHER ==
--- NOTE | 2019-03-07 11:50 | ER Document Report ---
ED Medical Screen (RME) - General Chief Complaint: Shortness Of Breath Stated Complaint: SHORTNESS OF BREATH Time Seen by Provider: 03/07/19 11:39 Primary Care Provider: HAYDEE ADAM MD [Primary Care Provider] - Follow up as needed Notes: Patient is a 38-year-old female presents to the emergency department with a chief complaint of shortness of breath. Patient states that her symptoms started yesterday. She also states that she feels like a she has a heaviness in her chest. Patient has a past medical history of CHF, diabetes, hypertension, COPD on 3 L nasal cannula at home, and atrial fibrillation. Patient states that she has been taking her DuoNeb treatments at home. She is supposed to be on a different medication, but states that she only has the DuoNeb at home. States that she has been taking her "DuoNeb treatments all night." Exam: Slight expiratory wheezes noted in right lung adams. I have greeted and performed a rapid initial assessment of this patient. A comprehensive ED assessment and evaluation of the patient, analysis of test results and completion of medical decision making process will be conducted by an additional ED providers. TRAVEL OUTSIDE OF THE [place] IN LAST 30 DAYS: No - Related Data Allergies/Adverse Reactions: amoxicillin [Amoxicillin] Allergy (Severe, Verified 11/25/18 17:01) Anaphylaxis Penicillins Allergy (Severe, Verified 11/25/18 17:01) Anaphylaxis Bees/Wasp Allergy (Severe, Uncoded 11/25/18 17:01) Anaphylaxis Past Medical History - Social History Family history: CAD, DM, Hypertension, Malignancy - Past Medical History Cardiac Medical History: Reports: Hx Atrial Fibrillation, Hx Congestive Heart Failure, Hx Hypercholesterolemia, Hx Hypertension Denies: Hx Coronary Artery Disease, Hx Heart Attack Pulmonary Medical History: Reports: Hx Asthma, Hx Bronchitis, Hx COPD, Hx Pneumonia, Hx Respiratory Failure - chronic: on 3 L/min of oxygen per nasal cannula, continuously. Neurological Medical History: Denies: Hx Cerebrovascular Accident, Hx Seizures Endocrine Medical History: Reports: Hx Diabetes Mellitus Type 2 - insulin dependent. Denies: Hx Diabetes Mellitus Type 1, Hx Hyperthyroidism, Hx H ypothyroidism Renal/ Medical History: Reports: Hx Kidney Stones. Denies: Hx Peritoneal Dialysis GI Medical History: Denies: Hx Cirrhosis, Hx Crohn's Disease, Hx Hepatitis, Hx Ulcerative Colitis Musculoskeltal Medical History: Denies Hx Arthritis, Denies Hx Fibromyalgia Skin Medical History: Denies Hx Eczema, Denies Hx Psoriasis Psychiatric Medical History: Reports: Hx Anxiety, Hx Bipolar Disorder, Hx Depression Infectious Medical History: Denies: Hx Hepatitis Past Surgical History: Reports: Hx Abdominal Surgery - hernia, Hx Cardiac Catheterization, Hx Cholecystectomy, Hx Herniorrhaphy, Hx Umbilical Hernia - Immunizations Immunizations up to date: No Hx Diphtheria, Pertussis, Tetanus Vaccination: Yes Doctor's Discharge - Discharge Referrals: HAYDEE ADAM MD [Primary Care Provider] - Follow up as needed
[2019-03-07 12:56] LABS: ABSOLUTE EOSINOPHILS # (AUTO) 0.2 10^3/uL (0.0-0.6); ABSOLUTE LYMPHOCYTES (AUTO) 1.8 10^3/uL (0.5-4.7); ABSOLUTE MONOCYTES (AUTO) 0.7 10^3/uL (0.1-1.4); ABSOLUTE NEUT (AUTO) 9.9 10^3/uL (1.7-8.2); BASOPHILS % (AUTO) 0.3 % (0-2); EOSINOPHILS % (AUTO) 1.3 % (0-6); HEMATOCRIT 38.6 % (36.0-47.0); HEMOGLOBIN 12.5 g/dL (12.0-15.5); LYMPHOCYTES % (AUTO) 14.2 % (13-45); MEAN CORPUSCULAR HEMOGLOBIN 24.3 pg (27.0-33.4); MEAN CORPUSCULAR HGB CONC 32.5 g/dL (32.0-36.0); MEAN CORPUSCULAR VOLUME 75 fl (80-97); MONOCYTES % (AUTO) 5.7 % (3-13); PLATELET COUNT 227 10^3/uL (150-450); RED BLOOD COUNT 5.16 10^6/uL (3.72-5.28); RED CELL DISTRIBUTION WIDTH 16.9 % (11.5-14.0); SEGMENTED NEUTROPHILS % (AUTO) 78.5 % (42-78); TOTAL CELLS COUNTED % (AUTO) 100 %; WHITE BLOOD COUNT 12.6 10^3/uL (4.0-10.5)
--- NOTE | 2019-03-07 13:03 | RADIOLOGY REPORT (SQ) ---
EXAM DESCRIPTION: CHEST SINGLE VIEW COMPLETED DATE/TIME: 03/07/2019 12:44 pm REASON FOR STUDY: shortness of breath COMPARISON: 01/20/2019 EXAM PARAMETERS: NUMBER OF VIEWS: One view. TECHNIQUE: Single frontal radiographic view of the chest acquired. RADIATION DOSE: NA LIMITATIONS: None. FINDINGS: LUNGS AND PLEURA: No opacities, masses or pneumothorax. No pleural effusion. MEDIASTINUM AND HILAR STRUCTURES: No masses. Contour normal. HEART AND VASCULAR STRUCTURES: Heart normal in size. Normal vasculature. BONES: No acute findings. HARDWARE: None in the chest. OTHER: No other significant finding. IMPRESSION: NO ACUTE RADIOGRAPHIC FINDING IN THE CHEST. TECHNICAL DOCUMENTATION: JOB ID: [id number] [employer]- All Rights Reserved Reading location - IP/workstation name: [email or web address]
[2019-03-07] MEDS ORDERED: METHYLPREDNISOLONE INJ 125 MG/2 ML SDV IV ONE (13:05)
[2019-03-07] MEDS ORDERED: IPRATROPIUM/ALBUTEROL 0.5-2.5 MG/3 ML AMPUL NEB ONE (13:05)
--- NOTE | 2019-03-07 13:05 | ER Document Report ---
ED General - General Chief Complaint: Shortness Of Breath Stated Complaint: SHORTNESS OF BREATH Time Seen by Provider: 03/07/19 11:39 Primary Care Provider: HAYDEE ADAM MD [Primary Care Provider] - Follow up as needed Notes: 38-year-old female with a complicated medical history that includes persistent atrial fibrillation, HRrEF ~30%, dilated cardiomyopathy, insulin-dependent diabetes mellitus, hypertension, COPD on 3 L nasal cannula at home [id number] presents to the emergency department with chief complaint of shortness of breath. When I went into the room the patient was mildly hyperventilating. Patient states that she has been unable to breathe and it feels like someone is standing on her chest. No chest pain just pressure. No fevers but recent productive cough. No diaphoresis or nausea. Patient states she has duo nebs at home and she has been taking them "all night". TRAVEL OUTSIDE OF THE [place] IN LAST 30 DAYS: No - Related Data Allergies/Adverse Reactions: amoxicillin [Amoxicillin] Allergy (Severe, Verified 03/07/19 21:09) Anaphylaxis Penicillins Allergy (Severe, Verified 03/07/19 21:09) Anaphylaxis Bees/Wasp Allergy (Severe, Uncoded 03/07/19 21:09) Anaphylaxis Past Medical History - Social History Smoking Status: Never Smoker Chew tobacco use (# tins/day): No Frequency of alcohol use: Occasional Drug Abuse: None Family History: CAD, DM, Hypertension, Malignancy Patient has suicidal ideation: No Patient has homicidal ideation: No - Past Medical History Cardiac Medical History: Reports: Hx Atrial Fibrillation, Hx Congestive Heart Failure, Hx Hypercholesterolemia, Hx Hypertension Denies: Hx Coronary Artery Disease, Hx Heart Attack Pulmonary Medical History: Reports: Hx Asthma, Hx Bronchitis, Hx COPD, Hx Pneumonia, Hx Respiratory Failure - chronic: on 3 L/min of oxygen per nasal cannula, continuously. Neurological Medical History: Denies: Hx Cerebrovascular Accident, Hx Seizures Endocrine Medical History: Reports: Hx Diabetes Mellitus Type 2 - insulin dependent. Denies: Hx Diabetes Mellitus Type 1, Hx Hyperthyroidism, Hx Hypothyroidism Renal/ Medical History: Reports: Hx Kidney Stones. Denies: Hx Peritoneal Dialysis GI Medical History: Denies: Hx Cirrhosis, Hx Crohn's Disease, Hx Hepatitis, Hx Ulcerative Colitis Musculoskeletal Medical History: Denies Hx Arthritis, Denies Hx Fibromyalgia Skin Medical History: Denies Hx Eczema, Denies Hx Psoriasis Psychiatric Medical History: Reports: Hx Anxiety, Hx Bipolar Disorder, Hx Depr ession Infectious Medical History: Denies: Hx Hepatitis Past Surgical History: Reports: Hx Abdominal Surgery - hernia, Hx Cardiac Catheterization, Hx Cholecystectomy, Hx Herniorrhaphy, Hx Umbilical Hernia - Immunizations Immunizations up to date: No Hx Diphtheria, Pertussis, Tetanus Vaccination: Yes Hx Pneumococcal Vaccination: 11/12/17 Review of Systems - Review of Systems Constitutional: See HPI EENT: No symptoms reported Cardiovascular: See HPI Respiratory: See HPI Gastrointestinal: See HPI Genitourinary: No symptoms reported Female Genitourinary: No symptoms reported Musculoskeletal: No symptoms reported Skin: No symptoms reported Hematologic/Lymphatic: No symptoms reported Neurological/Psychological: No symptoms reported Physical Exam - Vital signs Vitals: Pulse Ox 98 03/07/19 11:46 - Notes Notes: PHYSICAL EXAMINATION: Reviewed vital signs and charting by RN GENERAL: Alert, interacts well. No acute distress. HEAD: Normocephalic, atraumatic. EYES: Pupils equal and round. Extraocular movements intact. ENT: Oral mucosa moist, tongue midline. NECK: Full range of motion. Trachea midline. LUNGS: End expiratory wheezes in all adams, no rales or rhonchi. Patient is hyperventilating but her oxygen saturation is 98% on her home level of oxygen HEART: Irregularly irregular rate with mild tachycardia ABDOMEN: soft, non-tender. No distention. Bowel sounds present EXTREMITIES: Moves all 4 extremities spontaneously. No edema, No cyanosis. PSYCH: Normal affect, normal mood. SKIN: Warm, dry, normal turgor. No rashes or lesions noted. Course - Re-evaluation Re-evalutation: 03/07/19 13:06 Patient is generally well-appearing nontoxic. Initial vitals notable for tachypnea, tachycardia and elevated blood pressure. Differential diagnosis includes URI, COPD exacerbation, pneumonia, CHF exacerbation, ACS Patient with wheezing expiratory throughout although mild. She endorses a cough which she states she is intermittently productive. CBC does show mild leukocytosis however patient always has elevated white count and there is no left shift today. She will be given duo nebs as well as Solu-Medrol for probable COPD exacerbation. 03/07/19 15:42 NAMRATA Harrell, told me that patient's serum glucose was over 300 and he was hesitant to give the Solu-Medrol and I agree with his decision. The patient is having persistent chest pressure and I consulted with Dr. Ledezma, attending, who recommended trying nitro tabs sublingual instead of Nitropaste to see if that ameliorates her pain. She did receive nitro sublingual 1 time with no relief followed by 2 subsequent NTG sublingual with no relief. Initial troponin was 0.241 so a heparin drip was started. I do suspect that this is a nSTEMI as she has a BNP level of 833 which is not grossly abnormal from previous. She does not have anasarca or any significant bilateral lower extremity pitting edema to consider an acute CHF Exacerbation or complication from dilated cardiomyopathy. She did have expiratory wheezing in all adams and did not respond to a DuoNeb. I am going to give her Lasix 40 mg IV once to see if this will provide symptom relief. I did add a CTA chest to ensure she is not having a PE. I spoke with Dr. Helton, hospitalist at [facility] where patient's cardiology group is and he is awaiting a call back once the CTA results. 03/07/19 18:47 CTA resulted which did not show evidence of a PE and did show mild bilateral pulmonary effusions. This reinforces ruling out an acute CHF exacerbation. After listening to patient's lung sounds she had mild end expiratory wheezes improved from previous exam and I do not think this is due to a COPD exacerbation. The patient dates her chest pressure is new and different from typical shortness of breath that she has. Repeat troponin 0.202. I called Dr. Helton back who accepted the patient for transfer to [facility]. 03/07/19 23:03 Dr. Musa did see the patient prior to transfer. Please see her note. Of note, she did give the patient aspirin prior to transfer - Vital Signs Vital signs: Temp Pulse Resp BP Pulse Ox 98.1 F 16 113/72 96 03/07/19 22:27 03/07/19 22:00 03/07/19 21:31 03/07/19 22:00 - Laboratory Result Diagrams: 03/07/19 12:15 03/07/19 12:15 Laboratory results interpreted by me: 03/07/19 03/07/19 03/07/19 12:15 12:15 12:15 WBC 12.6 H MCV 75 L MCH 24.3 L RDW 16.9 H Absolute Neuts (auto) 9.9 H Seg Neutrophils % 78.5 H APTT Glucose 339 H POC Glucose Creatine Kinase 213 H NT-Pro-B Natriuret Pep 988 H 03/07/19 03/07/19 13:14 20:19 WBC MCV MCH RDW Absolute Neuts (auto) Seg Neutrophils % APTT 38.1 H Glucose POC Glucose 309 H Creatine Kinase NT-Pro-B Natriuret Pep Critical Care Note - Critical Care Note Total time excluding time spent on procedures (mins): 35 Comments: Critical care time spent obtaining history from patient or surrogate, discussions with consultants, development of treatment plan with patient or surrogate, evaluation of patient's response to treatment, examination of patient, ordering and performing treatments and interventions, ordering and review of laboratory studies, re-evaluation of patient's condition, ordering and review of radiographic studies and review of old charts for NSTEMI Discharge - Discharge Clinical Impression: Non-STEMI (non-ST elevated myocardial infarction), Shortness of breath Condition: Stable Disposition: [facility] Referrals: HAYDEE ADAM MD [Primary Care Provider] - Follow up as needed
[2019-03-07 13:09] LABS: ALBUMIN 3.7 g/dL (3.5-5.0); ALKALINE PHOSPHATASE 67 U/L (38-126); ANION GAP 11 (5-19); ASPARTATE AMINO TRANSFERASE 26 U/L (14-36); BILIRUBIN,DIRECT 0.1 mg/dL (0.0-0.4); BILIRUBIN,TOTAL 0.8 mg/dL (0.2-1.3); BLOOD UREA NITROGEN 13 mg/dL (7-20); CALCIUM 8.9 mg/dL (8.4-10.2); CARBON DIOXIDE 25 mmol/L (22-30); CHLORIDE 102 mmol/L (98-107); CREATINE KINASE 213 U/L (30-135); GLUCOSE 339 mg/dL (75-110); POTASSIUM 4.3 mmol/L (3.6-5.0); TOTAL PROTEIN 6.3 g/dL (6.3-8.2)
[2019-03-07 13:23] LABS: TROPONIN I 0.241 ng/mL
[2019-03-07] MEDS ORDERED: HEPARIN SOD (PORCINE) 1,000 UNIT/ML 10 ML VIAL IV ONE (13:56)
[2019-03-07] MEDS ORDERED: HEPARIN SODIUM,PORCINE/D5W 25,000 UNIT/250 ML RTUINJ IV PRN (13:56)
[2019-03-07] MEDS ORDERED: NITROGLYCERIN 2% OINTMENT 1 GM PACKET TP ONE (14:01)
[2019-03-07] MEDS ORDERED: NITROGLYCERIN 0.4 MG/TAB 25 TAB/BOTTLE ONE (14:24)
[2019-03-07 15:06] LABS: PARTIAL THROMBOPLASTIN TIME 30.6 SEC (23.5-35.8); PROTHROMBIN TIME 14.2 SEC (11.4-15.4)
[2019-03-07] MEDS ORDERED: MORPHINE SULFATE 10 MG/ML INJ IV ONE ×2 (15:25→18:09)
[2019-03-07] MEDS ORDERED: FUROSEMIDE INJ/PF 40 MG/4 ML SDV IV ONE (15:44)
--- NOTE | 2019-03-07 16:28 | RADIOLOGY REPORT (SQ) ---
EXAM DESCRIPTION: CTA CHEST COMPLETED DATE/TIME: 03/07/2019 4:04 pm REASON FOR STUDY: r/o PE COMPARISON: CT chest, 08/11/2018 TECHNIQUE: CT scan of the chest performed using helical scanning technique with dynamic intravenous contrast injection. Images reviewed with lung, soft tissue and bone windows. Reconstructed coronal and sagittal MPR images reviewed. Additional 3 dimensional post-processing performed to develop Maximal Intensity Projection images ([place] P). All images stored on PACS. All CT scanners at this facility use dose modulation, iterative reconstruction, and/or weight based d osing when appropriate to reduce radiation dose to as low as reasonably achievable (ALARA). [facility]: Dose Right [facility]: CareDose [facility]: Dose Right [facility]: Teradose 4D [facility]: Complexa CONTRAST TYPE AND DOSE: contrast/concentration: Isovue 350.00 mg/ml; Total Contrast Delivered: 75.0 ml; Total Saline Delivered: 80.0 ml Contrast bolus adequate for pulmonary arteries and aorta. RENAL FUNCTION: None required. The patient is less than 50 years old. RADIATION DOSE: CT Rad equipment meets quality standard of care and radiation dose reduction techniq ues were employed. CTDIvol: 19.8 - 41.5 mGy. DLP: 1499 mGy-cm. . LIMITATIONS: None. FINDINGS: LUNGS AND PLEURA: There is mild, diffuse interlobular septal thickening and small bilatera l pleural effusions. AORTA AND GREAT VESSELS: No aneurysm. Contrast bolus not optimized for the aorta. HEART: No pericardial effusion. No significant coronary artery calcifications. PULMONARY ARTERIES: No emboli visualized in the main pulmonary arteries or the segmental branches. HILAR AND MEDIASTINAL STRUCTURES: No identified masses or abnormal nodes. HARDWARE: None in the chest. UPPER ABDOMEN: No significant findings. Limited exam. THYROID AND OTHER SOFT TISSUES: No masses. No adenopathy. BONES: No acute or significant finding. 3D MIPS: Confirm above findings. OTHER: No other significant finding. IMPRESSION: 1. Negative examination for pulmonary embolism. 2. Mild, diffuse interlobular septal thickening and small bilateral pleural effusions, consistent wi th pulmonary edema. COMMENT: Quality ID # [id number]: Final reports with documentation of one or more dose reduction techniques (e.g., Automated exposure control, adjustment of the mA and/or kV according to patient size, use of iterative reconstruction technique) TECHNICAL DOCUMENTATION: JOB ID: [id number] [employer]- All Rights Reserved Reading location - IP/workstation name: [email or web address]
--- NOTE | 2019-03-07 20:08 | EKG REPORT ---
SEVERITY:- ABNORMAL ECG - SINUS TACHYCARDIA VENTRICULAR PREMATURE COMPLEX ABNORMAL Q SUGGESTS ANTERIOR INFARCT BORDERLINE T WAVE ABNORMALITIES BORDERLINE PROLONGED QT INTERVAL : Confirmed by: Heaven Marshall MD 07-Mar-2019 20:07:44
[2019-03-07 21:44] VITALS: BP 113/72
[2019-03-07] MEDS ORDERED: FENTANYL CITRATE INJ/PF 100 MCG/2 ML AMPUL IV ONE (21:50)
[2019-03-07] MEDS ORDERED: ASPIRIN 81 MG TABLET, CHEWABLE PO ONE (22:18)
--- NOTE | 2019-03-07 22:26 | ER Document Report ---
Doctor's Note Notes: 03/07/19 22:19 Prior to transport at 10 PM evaluated patient she had in the last 3 minutes she said having sudden onset of severe in the center of her chest pain she says go straight to her back. Repeated an EKG which has no changes from the one done earlier in the day. Specifically in the right coronary distribution but also has 1 PVC like the one 11 something a.m. Her vital signs were 93% on 3 L nasal cannula which is her home prescribed O2 for dilated [employer] she says/. she reports she has not responded at all to any of the nitroglycerin given earlier in the course of her stay. She says the last time she took any aspirin, last was 2 AM before the ambulance picked her up she took 81 mg. She is sure that she did not receive any other aspirin in the squad. It looks like per EMR that she has not yet received any aspirin since here. Her heart rate is been pretty stable at right over 100 210 her usual is less than 100. Her blood pressure is about the same as usual. She denies any cocaine I added on a urine and a urine drug screen. I reviewed the CTA myself do not see any aortic dissection she had equal pulses bilateral upper extremity and she had no neuro deficits she complained of at any point while she is been here. Called the radiologist [facility] who confirmed she also did not see any dissection. I give her 75 of micrograms of fentanyl reluctant to drop her preload too much, but her blood pressure might stable and she felt a lot better. She has bilateral rales and I have increased her oxygen here to 4 L and will talk to [facility] about keeping her oxygenation up above 95% and give them the update of what happened in the ER here today. Her second troponin had basically remained stable/went down possibly within the standard of deviation of air from 0.241--> 0.202 03/07/19 22:23
[2019-03-07 22:58] LABS: URINE AMPHETAMINES SCREEN NEGATIVE; URINE BARBITURATES SCREEN NEGATIVE; URINE BENZODIAZEPINES SCREEN NEGATIVE; URINE COCAINE SCREEN NEGATIVE; URINE MARIJUANA (THC) SCREEN NEGATIVE; URINE METHADONE SCREEN NEGATIVE; URINE PHENCYCLIDINE SCREEN NEGATIVE
--- NOTE | 2019-03-08 16:25 | EKG REPORT ---
SEVERITY:- ABNORMAL ECG - SINUS TACHYCARDIA MULTIPLE VENTRICULAR PREMATURE COMPLEXES ABNORMAL Q SUGGESTS ANTERIOR INFARCT : Confirmed by: Heaven Marshall MD 08-Mar-2019 16:24:42
== END 2019-03-07 22:33 | disposition short-term general hospital (02) ==
LOC: ER 11:24
DX: I21.4 Non-ST elevation (NSTEMI) myocardial infarction (principal); J44.9 Chronic obstructive pulmonary disease, unspecified; Z99.81 Dependence on supplemental oxygen; R00.0 Tachycardia, unspecified; J90 Pleural effusion, not elsewhere classified; D72.829 Elevated white blood cell count, unspecified; R05 Cough; R06.02 Shortness of breath; R07.89 Other chest pain; E11.9 Type 2 diabetes mellitus without complications; I10 Essential (primary) hypertension; Z87.892 Personal history of anaphylaxis; Z88.0 Allergy status to penicillin; Z91.030 Bee allergy status; Z91.038 Other insect allergy status
CPT/HCPCS: 93005; 96376; 94640; 99291; 96375; 96365; 96366; 36415; 82962; 82550; 84703; 85025; 85610; 85730; 81025; 80053; 84484; 80307; 83880; 71045; 71275; 93010; J1644 ×2; J3010; J1940; J2270; J7620

== ENCOUNTER 2019-03-25 01:56 | Emergency (ER) | payer OTHER ==
[2019-03-25 03:17] LABS: ABSOLUTE EOSINOPHILS # (AUTO) 0.1 10^3/uL (0.0-0.6); ABSOLUTE LYMPHOCYTES (AUTO) 2.3 10^3/uL (0.5-4.7); ABSOLUTE MONOCYTES (AUTO) 0.6 10^3/uL (0.1-1.4); ABSOLUTE NEUT (AUTO) 8.7 10^3/uL (1.7-8.2); BASOPHILS % (AUTO) 0.2 % (0-2); HEMATOCRIT 35.3 % (36.0-47.0); HEMOGLOBIN 11.5 g/dL (12.0-15.5); LYMPHOCYTES % (AUTO) 19.9 % (13-45); MEAN CORPUSCULAR HEMOGLOBIN 24.6 pg (27.0-33.4); MEAN CORPUSCULAR HGB CONC 32.7 g/dL (32.0-36.0); MEAN CORPUSCULAR VOLUME 75 fl (80-97); MONOCYTES % (AUTO) 5.3 % (3-13); PLATELET COUNT 174 10^3/uL (150-450); RED BLOOD COUNT 4.69 10^6/uL (3.72-5.28); RED CELL DISTRIBUTION WIDTH 17.2 % (11.5-14.0); SEGMENTED NEUTROPHILS % (AUTO) 73.6 % (42-78); TOTAL CELLS COUNTED % (AUTO) 100 %; WHITE BLOOD COUNT 11.8 10^3/uL (4.0-10.5)
--- NOTE | 2019-03-25 03:31 | ER Document Report ---
ED Respiratory Problem - General Chief Complaint: Shortness Of Breath Stated Complaint: SHORTNESS OF BREATH Time Seen by Provider: 03/25/19 03:31 Primary Care Provider: HAYDEE ADAM MD [Primary Care Provider] - Follow up as needed Mode of Arrival: Medic Information source: Patient TRAVEL OUTSIDE OF THE [place] IN LAST 30 DAYS: No - HPI Patient complains to provider of: Asthma, Chest pain, CHF, COPD, Cough, Short of breath Onset: Other - a few days ago Duration: Worse/persistent Initiating Event: Other - no known agitating factors, and states compoliance on medications. Quality of pain: Achy Severity: Moderate Context: Hx asthma, Hx CHF, Hx COPD Short of Breath: Severe Chest pain/discomfort: Center, Tightness, Worse with deep breaths Cough: Productive Sputum amount: Small Sputum color: Clear Sputum consistency: Frothy At home treatment: Bronchodilators EMS treatments: Bronchodilators, Oxygen, Solumedrol Associated symptoms: Difficulty breathing Similar symptoms previously: Yes - Related Data Allergies/Adverse Reactions: amoxicillin [Amoxicillin] Allergy (Severe, Verified 03/07/19 21:09) Anaphylaxis Penicillins Allergy (Severe, Verified 03/07/19 21:09) Anaphylaxis Bees/Wasp Allergy (Severe, Uncoded 03/07/19 21:09) Anaphylaxis Home Medications: Bin at bedside Past Medical History - Social History Smoking Status: Former Smoker Lives with: Family Family History: CAD, DM, Hypertension, Malignancy Patient has suicidal ideation: No Patient has homicidal ideation: No - Past Medical History Cardiac Medical History: Reports: Hx Atrial Fibrillation, Hx Congestive Heart Failure, Hx Hypercholesterolemia, Hx Hypertension Denies: Hx Coronary Artery Disease, Hx Heart Attack Pulmonary Medical History: Reports: Hx Asthma, Hx Bronchitis, Hx COPD, Hx Pneumonia, Hx Respiratory Failure - chronic: on 3 L/min of oxygen per nasal cannula, continuously. Neurological Medical History: Denies: Hx Cerebrovascular Accident, Hx Seizures Endocrine Medical History: Reports: Hx Diabetes Mellitus Type 2 - insulin dependent. Denies: Hx Diabetes Mellitus Type 1, Hx Hyperthyroidism, Hx Hypothyroidism Renal/ Medical History: Reports: Hx Kidney Stones. Denies: Hx Peritoneal Dialysis GI Medical History: Denies: Hx Cirrhosis, Hx Crohn's Disease, Hx Hepatitis, Hx Ulcerative Colitis Musculoskeletal Medical History: Denies Hx Arthritis, Denies Hx Fibromyalgia Skin Medical History: Denies Hx Eczema, Denies Hx Psoriasis Psychiatric Medical History: Reports: Hx Anxiety, Hx Bipolar Disorder, Hx Depression Infectious Medical History: Denies: Hx Hepatitis Past Surgical History: Reports: Hx Abdominal Surgery - hernia, Hx Cardiac Catheterization, Hx Cholecystectomy, Hx Herniorrhaphy, Hx Umbilical Hernia - Immunizations Immunizations up to date: No Hx Diphtheria, Pertussis, Tetanus Vaccination: Yes Hx Pneumococcal Vaccination: 11/12/17 Physical Exam - Vital signs Vitals: Pulse Ox 95 03/25/19 02:02 Interpretation: Normal - General General appearance: Appears well, Alert, Anxious In distress: Moderate - HEENT Head: Normocephalic, Atraumatic Eyes: Normal Pupils: PERRL - Respiratory Respiratory status: No respiratory distress, Respiratory distress, Depressed respirations, Tachypnea Chest status: Nontender Breath sounds: Normal, Decreased air movement Chest palpation: Normal - Cardiovascular Rhythm: Regular, Tachycardia Heart sounds: Normal auscultation Murmur: No - Abdominal Inspection: Normal Distension: No distension Bowel sounds: Normal Tenderness: Nontender Organomegaly: No organomegaly - Back Back: Normal, Nontender - Extremities General upper extremity: Normal inspection, Nontender, Normal color, Normal ROM, Normal temperature General lower extremity: Normal inspection, Nontender, Normal color, Normal ROM, Normal temperature, Normal weight bearing. No: Shawn's sign - Neurological Neuro grossly intact: Yes Cognition: Normal Orientation: AAOx4 Cassandra Coma Scale Eye Opening: Spontaneous Cassandra Coma Scale Verbal: Oriented [place] Coma Scale Motor: Obeys Commands [place] Coma Scale Total: 15 Speech: Normal Motor strength normal: LUE, RUE, LLE, RLE Sensory: Normal - Psychological Associated symptoms: Normal affect, Normal mood - Skin Skin Temperature: Warm Skin Moisture: Dry Skin Color: Normal Course - Re-evaluation Re-evalutation: 03/25/19 06:49 ON non rebreather facemask, and sats are 98%; on nasal cannula 4 litres with sats of 92% with tachypnea. Toponin level is elvated at 0.134 and is less than troponin when she was transported to [facility] in late February 2019 . Due to elevated troponin, nonstemi at this time, and in patient with multible cardiac issues of cardiomyopathy, chf, htn, obesity, copd , Our hospital transfers such patients whose troponin is not in the normal range to services where cardiology services and acute cath labs are present. - Vital Signs Vital signs: Temp Pulse Resp BP Pulse Ox 98.1 F 33 H 162/118 H 96 03/25/19 05:13 03/25/19 05:13 03/25/19 05:13 03/25/19 05:13 - Laboratory Result Diagrams: 03/25/19 02:36 03/25/19 02:36 Laboratory results interpreted by me: 03/25/19 03/25/19 03/25/19 02:36 02:36 02:36 WBC 11.8 H Hgb 11.5 L Hct 35.3 L MCV 75 L MCH 24.6 L RDW 17.2 H Absolute Neuts (auto) 8.7 H Carbon Dioxide 21 L Glucose 257 H NT-Pro-B Natriuret Pep 1990 H Total Protein 5.9 L Albumin 3.2 L Urine Glucose (UA) Urine Ketones 03/25/19 04:00 WBC Hgb Hct MCV MCH RDW Absolute Neuts (auto) Carbon Dioxide Glucose NT-Pro-B Natriuret Pep Total Protein Albumin Urine Glucose (UA) >=500 H Urine Ketones TRACE H - EKG Interpretation by Me When compared to previous EKG there are: No significant change - 02:09 12 lead EKG shows sinus tacycardia rate of 103, abnormal q waves sugest old anterior infarct of undertermined time. , and borderline t wave ABNL. Discharge - Discharge Clinical Impression: Asthma exacerbation, Congestive heart failure, COPD (chronic obstructive pulmonary disease), Morbid obesity with BMI of 40.0-44.9, adult, Diabetes mellitus type 2 in obese, Respiratory distress Condition: Fair Disposition: OTHER Additional Instructions: Call has been made to [facility] and awaiting therir call back with acceptance. Referrals: HAYDEE ADAM MD [Primary Care Provider] - Follow up as needed
[2019-03-25 03:42] LABS: ALBUMIN 3.2 g/dL (3.5-5.0); ALKALINE PHOSPHATASE 54 U/L (38-126); ANION GAP 11 (5-19); ASPARTATE AMINO TRANSFERASE 24 U/L (14-36); BILIRUBIN,DIRECT 0.3 mg/dL (0.0-0.4); BILIRUBIN,TOTAL 0.6 mg/dL (0.2-1.3); BLOOD UREA NITROGEN 11 mg/dL (7-20); CALCIUM 8.5 mg/dL (8.4-10.2); CARBON DIOXIDE 21 mmol/L (22-30); CHLORIDE 106 mmol/L (98-107); GLUCOSE 257 mg/dL (75-110); TOTAL PROTEIN 5.9 g/dL (6.3-8.2)
[2019-03-25 03:55] LABS: TROPONIN I 0.134 ng/mL
--- NOTE | 2019-03-25 04:04 | RADIOLOGY REPORT (SQ) ---
EXAM DESCRIPTION: X-ray single view chest. CLINICAL HISTORY: 38 years Female, SOB COMPARISON: CT chest performed on 03/07/2019 and prior chest x-rays performed on 03/07/2019 and 01/20/2019 TECHNIQUE: Single portable x-ray view of the chest performed on 03/25/2019 3:42 AM FINDINGS: The lungs are relatively well expanded. There is patchy airspace disease in the right lung. The left lung is grossly clear. There is no evidence of a pneumothorax. The cardiac silhouette is stable and is prominent. The mediastinal contours are normal. No acute osseous abnormality is identified. No focal soft tissue abnormalities are seen. Lines and tubes: None. IMPRESSION: 1. Patchy airspace disease throughout the right lung which may be secondary to edema, pneumonia and/or atelectasis. 2. Stable prominence of the cardiac silhouette.
[2019-03-25] MEDS ORDERED: FUROSEMIDE INJ/PF 40 MG/4 ML SDV IV ONE (04:48)
[2019-03-25] MEDS ORDERED: MORPHINE SULFATE 10 MG/ML INJ IV ONE (04:49)
[2019-03-25] MEDS ORDERED: NITROGLYCERIN 2% OINTMENT 1 GM PACKET TP ONE (04:49)
[2019-03-25 04:59] LABS: APPEARANCE,URINE CLEAR; BILIRUBIN,URINE NEGATIVE (NEGATIVE); COLOR,URINE YELLOW; GLUCOSE, URINE >=500 mg/dL (NEGATIVE); KETONES,URINE TRACE mg/dL (NEGATIVE); LEUKOCYTE ESTERASE,URINE NEGATIVE (NEGATIVE); NITRITE,URINE NEGATIVE (NEGATIVE); PROTEIN,URINE NEGATIVE (NEGATIVE); URINE SPECIFIC GRAVITY 1.018; UROBILINOGEN,URINE NEGATIVE mg/dL (<2.0)
--- NOTE | 2019-03-25 09:36 | ER Document Report ---
Doctor's Note Notes: 03/25/19 09:36 Called in to evaluate patient. She is still feeling dyspneic, is on 15 L per nonrebreather. She is 100% on room air. The patient has a history of COPD as well as CHF. I going to evaluate the patient she is tachypneic. She is moving good air, but clearly hyperventilating. She has been on BiPAP in the past, is well-known to the respiratory therapist. At this point, BiPAP will be ordered. I have verified with transport that they are CPAP capable, I do believe this will be appropriate for transport. Patient is getting BiPAP place at this time, we will reevaluate prior to transfer. 03/25/19 09:54 Transport is here. Patient feels improved after some time on the BiPAP. She feels improved, is stable on Ventimask. She is stable for transport.
[2019-03-25 10:19] VITALS: BP 154/94
--- NOTE | 2019-03-26 08:05 | EKG REPORT ---
SEVERITY:- ABNORMAL ECG - SINUS TACHYCARDIA ABNORMAL Q SUGGESTS ANTERIOR INFARCT BORDERLINE T WAVE ABNORMALITIES : Confirmed by: Tan Mobley 26-Mar-2019 08:04:02
== END 2019-03-25 09:59 | disposition short-term general hospital (02) ==
LOC: ER 01:56
DX: R06.03 Acute respiratory distress (principal); J45.901 Unspecified asthma with (acute) exacerbation; J44.9 Chronic obstructive pulmonary disease, unspecified; I50.9 Heart failure, unspecified; R06.4 Hyperventilation; E66.01 Morbid (severe) obesity due to excess calories; Z68.41 Body mass index [BMI] 40.0-44.9, adult; E11.9 Type 2 diabetes mellitus without complications; R79.89 Other specified abnormal findings of blood chemistry
CPT/HCPCS: 93005; 99285; 96374; 96375; 36415; 85025; 80053; 81001; 84484; 83880; 71045; 93010; 94660; J1940; J2270

== ENCOUNTER 2019-04-09 16:41 | Emergency (ER) | payer SELFPAY ==
[2019-04-09] MEDS ORDERED: METOCLOPRAMIDE HCL ORAL SOLN 10 MG/10 ML UDCUP PO ONE ×2 (17:42→20:00)
[2019-04-09] MEDS ORDERED: LIDOCAINE 2% VISCOUS SOLN 15 ML UDCUP PO ONE ×3 (17:42→20:00)
[2019-04-09] MEDS ORDERED: MAG HYDROX/AL HYDROX/SIMETH SUSP 30 ML UDCUP PO ONE ×2 (17:42→20:00)
--- NOTE | 2019-04-09 17:46 | ER Document Report ---
ED Medical Screen (RME) - General Chief Complaint: Abdominal Pain Stated Complaint: ABDOMINAL PAIN Time Seen by Provider: 04/09/19 17:36 Primary Care Provider: HAYDEE ADAM MD [Primary Care Provider] - Follow up as needed Notes: Patient is a 38-year-old female with a history of type 2 diabetes, congestive heart failure, neuropathy, A. fib, COPD, hypertension and cardiomyopathy who presents emergency department with a chief complaint of epigastric pain. Patient reports that this morning waking up with severe epigastric pain. She feels like her stomach is on fire. Patient reports she was seen at the [facility] and was sent over here for an evaluation she had 3 episodes of yellow liquid stool. Patient denies blood in the stool. Patient reports she was recently discharged from [facility] about 1 week ago for congestive heart failure and a positive troponin. Patient reports she has had some chest tightness today but her biggest complaint is the epigastric pain. Patient reports about 10 years ago she was diagnosed with gastric ulcers. Patient reports she is not currently taking anything for this. TRAVEL OUTSIDE OF THE [place] IN LAST 30 DAYS: No - Related Data Allergies/Adverse Reactions: amoxicillin [Amoxicillin] Allergy (Severe, Verified 03/07/19 21:09) Anaphylaxis Penicillins Allergy (Severe, Verified 03/07/19 21:09) Anaphylaxis Bees/Wasp Allergy (Severe, Uncoded 03/07/19 21:09) Anaphylaxis Home Medications: Nitro PRN. Carvedilol. Entresto. Gabapentin. Glipizide. Metformin. Albuterol Past Medical History - Social History Family history: CAD, DM, Hypertension, Malignancy - Past Medical History Cardiac Medical History: Reports: Hx Atrial Fibrillation, Hx Congestive Heart Failure, Hx Hypercholesterolemia, Hx Hypertension Denies: Hx Coronary Artery Disease, Hx Heart Attack Pulmonary Medical History: Reports: Hx Asthma, Hx Bronchitis, Hx COPD, Hx Pneumonia, Hx Respiratory Failure - chronic: on 3 L/min of oxygen per nasal cannula, continuously. Neurological Medical History: Denies: Hx Cerebrovascular Accident, Hx Seizures Endocrine Medical History: Reports: Hx Diabetes Mellitus Type 2 - insulin dependent. Denies: Hx Diabetes Mellitus Type 1, Hx Hyperthyroidism, Hx Hypothyroidism Renal/ Medical History: Reports: Hx Kidney Stones. Denies: Hx Peritoneal Dialysis GI Medical History: Denies: Hx Cirrhosis, Hx Crohn's Disease, Hx Hepatitis, Hx Ulcerative Colitis Musculoskeltal Medical History: Denies Hx Arthritis, Denies Hx Fibromyalgia Skin Medical History: Denies Hx Eczema, Denies Hx Psoriasis Psychiatric Medical History: Reports: Hx Anxiety, Hx Bipolar Disorder, Hx Depression Infectious Medical History: Denies: Hx Hepatitis Past Surgical History: Reports: Hx Abdominal Surgery - hernia, Hx Cardiac Catheterization, Hx Cholecystectomy, Hx Herniorrhaphy, Hx Umbilical Hernia - Immunizations Immunizations up to date: No Hx Diphtheria, Pertussis, Tetanus Vaccination: Yes Physical Exam - Vital signs Vitals: Temp Pulse Resp BP Pulse Ox 98.2 F 99 18 151/90 H 100 04/09/19 16:45 04/09/19 16:45 04/09/19 16:45 04/09/19 16:45 04/09/19 16:45 - Abdominal Inspection: Morbidly Obese Distension: No distension Bowel sounds: Normal Tenderness: Nontender Organomegaly: No organomegaly Course - Re-evaluation Re-evalutation: 04/09/19 17:45 I have greeted and performed a rapid initial assessment of this patient. A comprehensive ED assessment and evaluation of the patient, analysis of test results and completion of the medical decision making process will be conducted by additional ED providers. - Vital Signs Vital signs: Temp Pulse Resp BP Pulse Ox 98.2 F 99 18 151/90 H 100 04/09/19 16:45 04/09/19 16:45 04/09/19 16:45 04/09/19 16:45 04/09/19 16:45 Doctor's Discharge - Discharge Referrals: HAYDEE ADAM MD [Primary Care Provider] - Follow up as needed
--- NOTE | 2019-04-09 18:32 | ER Document Report ---
ED General - General Chief Complaint: Abdominal Pain Stated Complaint: ABDOMINAL PAIN Time Seen by Provider: 04/09/19 17:36 Primary Care Provider: HAYDEE ADAM MD [Primary Care Provider] - Follow up as needed Mode of Arrival: Ambulatory Information source: Patient Notes: Sharp shooting abdominal pain began today. Unrelated to meals. Patient has a known history of cholecystectomy in the past. Patient has been told she has had peptic ulcer disease about 10 years ago. Patient has chronic medical problems including CHF COPD hypertension insulin-dependent diabetes mellitus morbid obesity. Patient was recently hospitalized for CHF decompensation. TRAVEL OUTSIDE OF THE [place] IN LAST 30 DAYS: No - HPI Onset: Other - Noted today with episodic acute sharp shooting abdominal pain beginning in the epigastric region radiating outward. Also associated with loose diarrhea stools yellow color. Eyes any vomiting. Onset/Duration: Gradual, Intermittent Quality of pain: Cramping, Sharp, Stabbing Severity: Moderate Pain Level: 4 Associated symptoms: Diarrhea, Nausea Exacerbated by: Other - Patient has not eaten much today due to her abdominal pain. Relieved by: Other - No known relief Similar symptoms previously: Yes Recently seen / treated by doctor: No - Related Data Allergies/Adverse Reactions: amoxicillin [Amoxicillin] Allergy (Severe, Verified 03/07/19 21:09) Anaphylaxis Penicillins Allergy (Severe, Verified 03/07/19 21:09) Anaphylaxis Bees/Wasp Allergy (Severe, Uncoded 03/07/19 21:09) Anaphylaxis Home Medications: Nitro PRN. Carvedilol. Entresto. Gabapentin. Glipizide. Metformin. Albuterol Past Medical History - Social History Smoking Status: Unknown if Ever Smoked Frequency of alcohol use: None Drug Abuse: None Lives with: Family Family History: Reviewed & Not Pertinent, CAD, DM, Hypertension, Malignancy Patient has suicidal ideation: No Patient has homicidal ideation: No - Past Medical History Cardiac Medical History: Reports: Hx Atrial Fibrillation, Hx Congestive Heart Failure, Hx Hypercholesterolemia, Hx Hypertension Denies: Hx Coronary Artery Disease, Hx Heart Attack Pulmonary Medical History: Reports: Hx Asthma, Hx Bronchitis, Hx COPD, Hx Pneumonia, Hx Respiratory Failure - chronic: on 3 L/min of oxygen per nasal cannula, continuously. Neurological Medical History: Denies: Hx Cerebrovascular Accident, Hx Seizures Endocrine Medical History: Reports: Hx Diabetes Mellitus Type 2 - insulin dependent. Denies: Hx Diabetes Mellitus Type 1, Hx Hyperthyroidism, Hx Hypothyroidism Renal/ Medical History: Reports: Hx Kidney Stones. Denies: Hx Peritoneal Dialysis GI Medical History: Denies: Hx Cirrhosis, Hx Crohn's Disease, Hx Hepatitis, Hx Ulcerative Colitis Musculoskeletal Medical History: Denies Hx Arthritis, Denies Hx Fibromyalgia Skin Medical History: Denies Hx Eczema, Denies Hx Psoriasis Psychiatric Medical History: Reports: Hx Anxiety, Hx Bipolar Disorder, Hx Depression Infectious Medical History: Denies: Hx Hepatitis Past Surgical History: Reports: Hx Abdominal Surgery - hernia, Hx Cardiac Catheterization, Hx Cholecystectomy, Hx Herniorrhaphy, Hx Umbilical Hernia - Immunizations Immunizations up to date: No Hx Diphtheria, Pertussis, Tetanus Vaccination: Yes Hx Pneumococcal Vaccination: 11/12/17 Review of Systems - Review of Systems Constitutional: Malaise EENT: No symptoms reported Cardiovascular: Orthopnea Respiratory: Short of breath Gastrointestinal: No symptoms reported, Abdominal pain Genitourinary: No symptoms reported Female Genitourinary: No symptoms reported Musculoskeletal: No symptoms reported Skin: No symptoms reported Hematologic/Lymphatic: No symptoms reported Neurological/Psychological: No symptoms reported -: Yes All other systems reviewed and negative Physical Exam - Vital signs Vitals: Temp Pulse Resp BP Pulse Ox 98.2 F 99 18 151/90 H 100 04/09/19 16:45 04/09/19 16:45 04/09/19 16:45 04/09/19 16:45 04/09/19 16:45 Interpretation: Normal - Notes Notes: Obese - General General appearance: Appears well, Alert - HEENT Head: Normocephalic, Atraumatic Eyes: Normal Pupils: PERRL - Respiratory Respiratory status: No respiratory distress Chest status: Nontender Breath sounds: Normal Chest palpation: Normal - Cardiovascular Rhythm: Regular Heart sounds: Normal auscultation Murmur: No - Abdominal Inspection: Normal Distension: No distension Bowel sounds: Normal Tenderness: Nontender, Tender, Other - Epigastric tenderness to palpation. No rebound no guarding Organomegaly: No organomegaly - Back Back: Normal, Nontender - Extremities General upper extremity: Normal inspection, Nontender, Normal color, Normal ROM, Normal temperature General lower extremity: Normal inspection, Nontender, Normal color, Normal ROM, Normal temperature, Normal weight bearing. No: Shawn's sign - Neurological Neuro grossly intact: Yes Cognition: Normal Orientation: AAOx4 Independence Coma Scale Eye Opening: Spontaneous Cassandra Coma Scale Verbal: Oriented Cassandra Coma Scale Motor: Obeys Commands Independence Coma Scale Total: 15 Speech: Normal Motor strength normal: LUE, RUE, LLE, RLE Sensory: Normal - Psychological Associated symptoms: Normal affect, Normal mood - Skin Skin Temperature: Warm Skin Moisture: Dry Skin Color: Normal Course - Re-evaluation Re-evalutation: 04/10/19 01:37 Patient resting comfortably not showing any signs of respiratory or chest discomfort. Patient is not having any nausea vomiting or complaints of abdominal pain at this time. Patient was treated for her nausea with IV Zofran and IV Pepcid as an antiacid. Second troponin is less than the first test which are both lower numbers than they were 2 weeks ago. Therefore I doubt the patient is having any cardiac event at this time. Most likely patient has gastritis and dyspepsia with nausea. Plan is for her to continue her antiacid medications and I will add Zofran as needed for nausea. - Vital Signs Vital signs: Temp Pulse Resp BP Pulse Ox 98.2 F 99 18 144/99 H 97 04/09/19 16:45 04/09/19 16:45 04/10/19 00:03 04/10/19 00:03 04/10/19 00:03 - Laboratory Result Diagrams: 04/09/19 19:15 04/09/19 19:15 Laboratory results interpreted by me: 04/09/19 04/09/19 04/09/19 19:15 20:25 23:54 WBC 12.8 H MCV 74 L MCH 24.4 L RDW 16.9 H POC Glucose 191 H Urine Protein 100 H Urine Blood LARGE H Ur Leukocyte Esterase TRACE H - Diagnostic Test Radiology reviewed: Image reviewed, Reports reviewed Radiology results interpreted by me: 04/10/19 01:38 CT scan of abdomen and pelvis with oral and IV contrast disclose no acute process. No obstruction no inflammatory disease noted. Patient is status post cholecystectomy in the in her past. - EKG Interpretation by Me Additional EKG results interpreted by me: 04/09/19 18:32 Twelve-lead EKG done at 1759 shows a normal sinus rhythm rate of 92 abnormal Q waves suggest anterior infarct. Nonspecific T wave abnormalities in the lateral leads abnormal Q waves present in the anterior chest leads have been present on previous EKG on 03/25/2019 no change Discharge - Discharge Clinical Impression: Dyspepsia and disorder of function of stomach, Nausea Abdominal pain Qualifiers: Abdominal location: epigastric Qualified Code(s): R10.13 - Epigastric pain Condition: Stable Disposition: HOME, SELF-CARE Instructions: Abdominal Pain ([facility]), Antinausea Medication ([facility]) Additional Instructions: Nausea or Vomiting, Nonspecific Vomiting (or nausea without vomiting) can be caused by many different problems. Of course, it can mean that something's wrong with the stomach, such as "stomach flu," ulcers, or inflammation. But it can also be a symptom of a problem that has nothing to do with the stomach or intestines. Vomiting is common with severe headaches, earaches, and tonsillitis. We see it with pneumonia or heart attacks. Drugs can cause nausea. Many abdominal problems cause vomiting; for example, gallstones, kidney stones, pancreatitis, and intestinal obstruction (blocked bowels). In most cases, curing the vomiting depends on fixing the problem that caused it. For temporary relief, we may use an anti-nausea medicine. For home use, we can prescribe suppositories, chewable pills, pills that dissolve in the mouth, or liquid anti-nausea drugs. If the vomiting seems to be caused by a problem in the stomach, acid-suppressing drugs may be prescribed as well. It's important to avoid dehydration. Sip clear liquids. Take increasing amounts of fluid over the first 24 hours. Then start small amounts of bland foods (such as dry toast, applesauce, mashed potato). Avoid aspirin, tobacco, and alcohol. Gradually resume your usual diet. If the vomiting worsens, if the problem that's making you vomit worsens, or if there's evidence of bleeding in the stomach (such as black, tarry stool, bloody or black vomit, or lightheadedness), you should return immediately. Call your doctor if you aren't improved in 24 to 36 hours. Abdominal Pain There are many causes of abdominal pain. Pain can mean a serious problem requiring surgery (such as appendicitis). It can also be an innocent problem t hat goes away on its own (such as a viral infection). Often, time must pass to determine the cause of pain. The physician does not feel that hospitalization is necessary, at present. Things may change within the next 24 hours. Call the doctor or come back for re- examination if any problems occur, such as: (1) Pain that becomes more severe, steady, or becomes concentrated in one specific area. Also, pain that is more severe with movement or coughing. (2) Vomiting that persists or becomes more frequent. (3) Blood in the vomitus, urine, or bowel movements. Blood in the stool may have a tarry or black appearance. (4) Shaking chills or fever greater than 100 degrees F. (5) The abdomen becomes more distended or swollen. (6) Bowel movements cease. (7) Failure to improve as expected. Prescriptions: Ondansetron [Zofran Odt 4 mg Tablet] 1 - 2 tab PO Q4H PRN #15 tab.rapdis PRN Reason: For Nausea/Vomiting Referrals: HAYDEE ADAM MD [Primary Care Provider] - Follow up as needed
--- NOTE | 2019-04-09 18:51 | RADIOLOGY REPORT (SQ) ---
EXAM DESCRIPTION: CHEST 2 VIEWS COMPLETED DATE/TIME: 04/09/2019 6:26 pm REASON FOR STUDY: chest pain COMPARISON: AP view of the chest from 03/25/2019. EXAM PARAMETERS: NUMBER OF VIEWS: two views TECHNIQUE: PA and lateral views of the chest were obtained. RADIATION DOSE: NA LIMITATIONS: none FINDINGS: LUNGS AND PLEURA: No consolidation, pleural effusion or pneumothorax. MEDIASTINUM AND HILAR STRUCTURES: No mediastinal or hilar contour abnormality. HEART AND VASCULAR STRUCTURES: The cardiac silhouette is enlarged. The pulmonary vasculature is with in normal limits given the low inspiratory lung volumes. BONES: No acute findings. HARDWARE: None in the chest. OTHER: No other finding. IMPRESSION: Low inspiratory lung volumes and cardiomegaly without a superimposed acute cardiopulmona ry process. TECHNICAL DOCUMENTATION: JOB ID: [id number] [employer]- All Rights Reserved Reading location - IP/workstation name: [email or web address]
[2019-04-09 19:28] LABS: ABSOLUTE BASOPHILS # (AUTO) 0.1 10^3/uL (0.0-0.2); ABSOLUTE EOSINOPHILS # (AUTO) 0.2 10^3/uL (0.0-0.6); ABSOLUTE LYMPHOCYTES (AUTO) 3.5 10^3/uL (0.5-4.7); ABSOLUTE NEUT (AUTO) 7.9 10^3/uL (1.7-8.2); EOSINOPHILS % (AUTO) 1.6 % (0-6); HEMATOCRIT 37.2 % (36.0-47.0); HEMOGLOBIN 12.2 g/dL (12.0-15.5); LYMPHOCYTES % (AUTO) 27.7 % (13-45); MEAN CORPUSCULAR HEMOGLOBIN 24.4 pg (27.0-33.4); MEAN CORPUSCULAR HGB CONC 32.8 g/dL (32.0-36.0); MEAN CORPUSCULAR VOLUME 74 fl (80-97); MONOCYTES % (AUTO) 7.8 % (3-13); PLATELET COUNT 271 10^3/uL (150-450); RED CELL DISTRIBUTION WIDTH 16.9 % (11.5-14.0); SEGMENTED NEUTROPHILS % (AUTO) 61.9 % (42-78); TOTAL CELLS COUNTED % (AUTO) 100 %; WHITE BLOOD COUNT 12.8 10^3/uL (4.0-10.5)
[2019-04-09 19:47] LABS: ALBUMIN 3.8 g/dL (3.5-5.0); ALKALINE PHOSPHATASE 53 U/L (38-126); ANION GAP 9 (5-19); ASPARTATE AMINO TRANSFERASE 22 U/L (14-36); BILIRUBIN,DIRECT 0.3 mg/dL (0.0-0.4); BILIRUBIN,TOTAL 0.6 mg/dL (0.2-1.3); BLOOD UREA NITROGEN 13 mg/dL (7-20); CALCIUM 9.3 mg/dL (8.4-10.2); CARBON DIOXIDE 25 mmol/L (22-30); CHLORIDE 104 mmol/L (98-107); GLUCOSE 86 mg/dL (75-110); POTASSIUM 4.1 mmol/L (3.6-5.0); TOTAL PROTEIN 6.6 g/dL (6.3-8.2)
--- NOTE | 2019-04-09 20:44 | EKG REPORT ---
SEVERITY:- ABNORMAL ECG - SINUS RHYTHM ABNORMAL Q SUGGESTS ANTERIOR INFARCT NONSPECIFIC T ABNORMALITIES, LATERAL LEADS : Confirmed by: Tan Mobley 09-Apr-2019 20:43:37
[2019-04-09 20:51] LABS: APPEARANCE,URINE CLOUDY; BILIRUBIN,URINE NEGATIVE (NEGATIVE); COLOR,URINE AMBER; GLUCOSE, URINE NEGATIVE (NEGATIVE); KETONES,URINE NEGATIVE (NEGATIVE); LEUKOCYTE ESTERASE,URINE TRACE (NEGATIVE); NITRITE,URINE NEGATIVE (NEGATIVE); PROTEIN,URINE 100 mg/dL (NEGATIVE); URINE SPECIFIC GRAVITY 1.021; UROBILINOGEN,URINE NEGATIVE mg/dL (<2.0)
--- NOTE | 2019-04-09 22:34 | RADIOLOGY REPORT (SQ) ---
EXAM DESCRIPTION: CT ABDOMEN PELVIS WITH IV CONTRAST COMPLETED DATE/TME: 04/09/2019 00:00 CLINICAL HISTORY: 38 years, Female, epigastric pain This exam was performed according to our departmental dose-optimization program which includes automated exposure control, adjustment of the mA and/or kVp according to patient size and/or use of iterative reconstruction technique where applicable. FINDINGS: Visualized lung bases are within normal limits. Liver, spleen, pancreas, adrenal glands and kidneys are within normal limits. No hydronephrosis or biliary dilatation. Status post cholecystectomy. No dilated loops of bowel to suggest obstruction. Mild amount of stool in the colon. Gynecologic organs are unremarkable. No abdominal or pelvic lymphadenopathy. Abdominal aorta is within normal limits. The appendix is normal. IMPRESSION: No acute disease. No evidence for acute appendicitis. Status post cholecystectomy.
[2019-04-09] MEDS ORDERED: ONDANSETRON HCL INJ/PF 4 MG/2 ML SDV IV ONE (23:39)
[2019-04-09] MEDS ORDERED: FAMOTIDINE INJ/PF 20 MG/2 ML SDV IV ONE (23:40)
[2019-04-10 02:21] VITALS: BP 140/90
== END 2019-04-10 02:18 | disposition home or self-care (01) ==
LOC: ER 16:41
DX: R10.13 Epigastric pain (principal); R19.7 Diarrhea, unspecified; R11.0 Nausea; I48.91 Unspecified atrial fibrillation; I50.9 Heart failure, unspecified; I11.0 Hypertensive heart disease with heart failure; E78.00 Pure hypercholesterolemia, unspecified; J44.9 Chronic obstructive pulmonary disease, unspecified; E11.9 Type 2 diabetes mellitus without complications; Z88.0 Allergy status to penicillin; Z79.4 Long term (current) use of insulin; Z90.49 Acquired absence of other specified parts of digestive tract
CPT/HCPCS: 99284; 96374; 36415; 82962; 83690; 85025; 80053; 81001; 84484; 71046; 74177; 93005; 93010; J3490; J2405; S0028

== ENCOUNTER 2019-05-16 20:14 | Emergency (ER) | payer SELFPAY ==
[2019-05-16 20:38] LABS: ABSOLUTE EOSINOPHILS # (AUTO) 0.2 10^3/uL (0.0-0.6); ABSOLUTE LYMPHOCYTES (AUTO) 2.3 10^3/uL (0.5-4.7); ABSOLUTE MONOCYTES (AUTO) 0.7 10^3/uL (0.1-1.4); ABSOLUTE NEUT (AUTO) 7.6 10^3/uL (1.7-8.2); BASOPHILS % (AUTO) 0.5 % (0-2); HEMATOCRIT 33.9 % (36.0-47.0); HEMOGLOBIN 11.5 g/dL (12.0-15.5); LYMPHOCYTES % (AUTO) 21.1 % (13-45); MEAN CORPUSCULAR HEMOGLOBIN 24.8 pg (27.0-33.4); MEAN CORPUSCULAR VOLUME 73 fl (80-97); MONOCYTES % (AUTO) 6.8 % (3-13); PLATELET COUNT 221 10^3/uL (150-450); RED BLOOD COUNT 4.65 10^6/uL (3.72-5.28); RED CELL DISTRIBUTION WIDTH 16.6 % (11.5-14.0); SEGMENTED NEUTROPHILS % (AUTO) 69.6 % (42-78); TOTAL CELLS COUNTED % (AUTO) 100 %
[2019-05-16 20:46] LABS: VENOUS BLOOD BASE EXCESS -2.5 mmol/L; VENOUS BLOOD HCO3 21.2 mmol/L (20-32); VENOUS BLOOD PCO2 33.1 mmHg (35-63); VENOUS BLOOD PH 7.43 (7.30-7.42)
--- NOTE | 2019-05-16 20:53 | ER Document Report ---
ED General - General Chief Complaint: Respiratory Distress Stated Complaint: CHEST PAIN,DIFFICULTY BREATHING Time Seen by Provider: 05/16/19 20:31 Primary Care Provider: HAYDEE ADAM MD [Primary Care Provider] - Follow up as needed TRAVEL OUTSIDE OF THE [place] IN LAST 30 DAYS: No - HPI Notes: Patient is a 38-year-old female with multiple medical issues who presents to the emergency department for evaluation of chest pain or shortness of breath. She states he started feeling short of breath yesterday, and states it got worse today. She describes it as heavy as well as sharp. It is worsened by breathing. Nothing seems to make it better. She states that she weighs herself daily and has not noticed any changes in her weight. She has not noticed any increase in her edema. She did states she woke up suddenly short of breath, she does have 3 pillow orthopnea at baseline. She is been using her 3 L of oxygen at home without any difficulty until yesterday. Otherwise she has been taking her medications as prescribed, with the exception of her Flexeril, which she has run out of. - Related Data Allergies/Adverse Reactions: amoxicillin [Amoxicillin] Allergy (Severe, Verified 03/07/19 21:09) Anaphylaxis Penicillins Allergy (Severe, Verified 03/07/19 21:09) Anaphylaxis Bees/Wasp Allergy (Severe, Uncoded 03/07/19 21:09) Anaphylaxis Home Medications: zolpidem tartrate 10mg QHS, carvedilol 6.25mg BID, nitroglycerin 0.4mg, Tylenol ER 650mg, isosorbide er 15mg, gapentin 600mgBID, Lasix 20mg daily, entresto 49mg bid, Metformin 1000mgBID, Loratadine 10mg daily, omeprazole 40mg daily, Glipizide 10mg BID, spiriva, Flonase, Past Medical History - General Information source: Patient - Social History Smoking Status: Former Smoker Chew tobacco use (# tins/day): No Family History: Reviewed & Not Pertinent, CAD, DM, Hypertension, Malignancy Patient has suicidal ideation: No Patient has homicidal ideation: No - Past Medical History Cardiac Medical History: Reports: Hx Atrial Fibrillation, Hx Congestive Heart Failure, Hx Hypercholesterolemia, Hx Hypertension Denies: Hx Coronary Artery Disease, Hx Heart Attack Pulmonary Medical History: Reports: Hx Asthma, Hx Bronchitis, Hx COPD, Hx Pneumonia, Hx Respiratory Failure - chronic: on 3 L/min of oxygen per nasal cannula, continuously. Neurological Medical History: Denies: Hx Cerebrovascular Accident, Hx Seizures Endocrine Medical History: Reports: Hx Diabetes Mellitus Type 2 - insulin dependent. Denies: Hx Diabetes Mellitus Type 1, Hx Hyperthyroidism, Hx Hypothyroidism Renal/ Medical History: Reports: Hx Kidney Stones. Denies: Hx Peritoneal Dialysis GI Medical History: Denies: Hx Cirrhosis, Hx Crohn's Disease, Hx Hepatitis, Hx Ulcerative Colitis Musculoskeletal Medical History: Denies Hx Arthritis, Denies Hx Fibromyalgia Skin Medical History: Denies Hx Eczema, Denies Hx Psoriasis Psychiatric Medical History: Reports: Hx Anxiety, Hx Bipolar Disorder, Hx Depression Infectious Medical History: Denies: Hx Hepatitis Past Surgical History: Reports: Hx Abdominal Surgery - hernia, Hx Cardiac Catheterization, Hx Cholecystectomy, Hx Herniorrhaphy, Hx Umbilical Hernia - Immunizations Immunizations up to date: No Hx Diphtheria, Pertussis, Tetanus Vaccination: Yes Hx Pneumococcal Vaccination: 11/12/17 Review of Systems - Review of Systems Constitutional: See HPI Cardiovascular: See HPI Respiratory: See HPI -: Yes All other systems reviewed and negative Physical Exam - Vital signs Vitals: Resp Pulse Ox 44 H 100 05/16/19 20:15 05/16/19 20:15 - Notes Notes: This is an obese 38-year-old female who appears her stated age. She is very anxious appearing. She is on the BiPAP as ordered. She is tachypneic, but otherwise shows no increased work of breathing. Vital signs reviewed, please refer to chart. Head is normocephalic, atraumatic. Pupils equal round, reactive to light. Neck is supple without meningismus. Heart is regular rate and rhythm. Lungs reveal mildly diminished breath sounds, but no wheezes, rales, rhonchi. Abdomen is soft, nontender, normoactive bowel sounds throughout. Extremities without cyanosis, clubbing. Trace pitting edema noted. Posterior calves are nontender. Peripheral pulses are equal. Skin is warm and dry. Patient is awake, alert, neurological exam is nonfocal. Course - Re-evaluation Re-evalutation: 05/16/19 20:52 Patient presents to the emergency department for evaluation. She is on the BiPAP as she had been on CPAP in route. On 40% FiO2 she is on a percent on room air. I do not appreciate any crackles. She has mildly diminished breath sounds, but does have a history of COPD and is morbidly obese, which certainly limits auscultation. Attempts will be made to wean the patient off of the BiPAP as soon as possible. Currently her respiratory rate is 24. Awaiting further lab work, we will continue to monitor. 05/17/19 01:57 Patient came off BiPAP without difficulty. Her troponins remained stable. She was given 10 mg of IV Lasix and did have some diuresis. I do suspect that the patient has some anxiety that contributes to her dyspnea, as well as some aspect of restrictive lung disease given her BMI. We talked about this at length. She is currently awaiting finalization of her referral on to cardiac rehab. She is encouraged to follow-up with that. She already has an appointment with Dr. Arreola at the end of this week. She is to return to the emergency department with worsening or new concerning symptoms of any sort. - Vital Signs Vital signs: Temp Pulse Resp BP Pulse Ox 98.3 F 21 H 138/83 H 99 05/16/19 20:50 05/17/19 00:09 05/17/19 00:09 05/17/19 00:09 - Laboratory Result Diagrams: 05/16/19 20:21 05/16/19 20:21 Laboratory results interpreted by me: 05/16/19 05/16/19 05/16/19 20:21 20:21 20:21 WBC 11.0 H Hgb 11.5 L Hct 33.9 L MCV 73 L MCH 24.8 L RDW 16.6 H VBG pH VBG pCO2 Sodium 136.8 L Glucose 216 H NT-Pro-B Natriuret Pep 1730 H Urine Glucose (UA) 05/16/19 05/17/19 20:21 00:30 WBC Hgb Hct MCV MCH RDW VBG pH 7.43 H VBG pCO2 33.1 L Sodium Glucose NT-Pro-B Natriuret Pep Urine Glucose (UA) 150 H - Diagnostic Test Radiology reviewed: Reports reviewed Radiology results interpreted by me: 05/17/19 01:57 Chest X-Ray 05/16/19 20:16 IMPRESSION: No evidence of acute cardiopulmonary disease. - EKG Interpretation by Me Additional EKG results interpreted by me: 05/16/19 20:53 Sinus mechanism with rate of 87 bpm. Normal axis and intervals. Nonspecific ST changes, but no acute changes concerning for ischemia or infarction and no significant change in compared to prior study of April 09, 2019 Discharge - Discharge Clinical Impression: Acute on chronic systolic (congestive) heart failure Condition: Stable Disposition: HOME, SELF-CARE Instructions: Congestive Heart Failure ([facility]) Additional Instructions: Please continue your home medications as previously prescribed. Follow-up with Dr. Arreola as scheduled on Tuesday. Return to the emergency department with worsening or new concerning symptoms of any sort. Referrals: HAYDEE ADAM MD [Primary Care Provider] - Follow up as needed
[2019-05-16 20:56] LABS: ALBUMIN 3.6 g/dL (3.5-5.0); ALKALINE PHOSPHATASE 50 U/L (38-126); ANION GAP 11 (5-19); ASPARTATE AMINO TRANSFERASE 15 U/L (14-36); BILIRUBIN,DIRECT 0.2 mg/dL (0.0-0.4); BILIRUBIN,TOTAL 0.5 mg/dL (0.2-1.3); BLOOD UREA NITROGEN 11 mg/dL (7-20); CALCIUM 8.6 mg/dL (8.4-10.2); CARBON DIOXIDE 24 mmol/L (22-30); CHLORIDE 102 mmol/L (98-107); GLUCOSE 216 mg/dL (75-110); POTASSIUM 4.1 mmol/L (3.6-5.0); TOTAL PROTEIN 6.5 g/dL (6.3-8.2)
[2019-05-16] MEDS ORDERED: ONDANSETRON HCL INJ/PF 4 MG/2 ML SDV IV ONE (21:03)
[2019-05-16] MEDS ORDERED: MORPHINE SULFATE 10 MG/ML INJ IV ONE (21:03)
--- NOTE | 2019-05-16 21:14 | RADIOLOGY REPORT (SQ) ---
EXAM DESCRIPTION: XR CHEST 1 VIEW COMPLETED DATE/TME: 05/16/2019 20:16 CLINICAL HISTORY: 38 years, Female, shortness of breath COMPARISON: EXAM DESCRIPTION: CLINICAL HISTORY: shortness of breath COMPARISON: None. FINDINGS: Single view of the chest is submitted. Cardiac silhouette is normal. No focal parenchymal or pleural disease. There is no significant pulmonary vascular engorgement. IMPRESSION: No evidence of acute cardiopulmonary disease.
[2019-05-16] MEDS ORDERED: FUROSEMIDE INJ/PF 20 MG/2 ML SDV IV ONE (21:46)
[2019-05-17 00:57] LABS: APPEARANCE,URINE CLEAR; BILIRUBIN,URINE NEGATIVE (NEGATIVE); COLOR,URINE YELLOW; GLUCOSE, URINE 150 mg/dL (NEGATIVE); KETONES,URINE NEGATIVE (NEGATIVE); LEUKOCYTE ESTERASE,URINE NEGATIVE (NEGATIVE); NITRITE,URINE NEGATIVE (NEGATIVE); PROTEIN,URINE NEGATIVE (NEGATIVE); URINE SPECIFIC GRAVITY 1.009; UROBILINOGEN,URINE NEGATIVE mg/dL (<2.0)
[2019-05-17 02:32] VITALS: BP 131/84
--- NOTE | 2019-05-17 07:21 | EKG REPORT ---
SEVERITY:- ABNORMAL ECG - SINUS RHYTHM ABNORMAL Q SUGGESTS ANTERIOR INFARCT BORDERLINE T WAVE ABNORMALITIES : Confirmed by: Eder John MD 17-May-2019 07:21:25
== END 2019-05-17 02:27 | disposition home or self-care (01) ==
LOC: ER 20:14
DX: I11.0 Hypertensive heart disease with heart failure (principal); I50.33 Acute on chronic diastolic (congestive) heart failure; J44.9 Chronic obstructive pulmonary disease, unspecified; E66.01 Morbid (severe) obesity due to excess calories; R07.9 Chest pain, unspecified; R06.02 Shortness of breath; Z99.81 Dependence on supplemental oxygen; Z79.899 Other long term (current) drug therapy; E11.9 Type 2 diabetes mellitus without complications; Z79.84 Long term (current) use of oral hypoglycemic drugs; Z87.891 Personal history of nicotine dependence
CPT/HCPCS: 93005; 99285; 96374; 96375; 36415; 85025; 80053; 81001; 84484; 82803; 83880; 71045; 93010; 94660; J1940; J2270; J2405

== ENCOUNTER 2019-06-14 00:21 | Emergency (ER) | payer SELFPAY ==
[2019-06-14 01:16] LABS: ABSOLUTE EOSINOPHILS # (AUTO) 0.2 10^3/uL (0.0-0.6); ABSOLUTE LYMPHOCYTES (AUTO) 2.7 10^3/uL (0.5-4.7); ABSOLUTE MONOCYTES (AUTO) 0.7 10^3/uL (0.1-1.4); ABSOLUTE NEUT (AUTO) 7.8 10^3/uL (1.7-8.2); BASOPHILS % (AUTO) 0.3 % (0-2); EOSINOPHILS % (AUTO) 1.6 % (0-6); HEMATOCRIT 36.2 % (36.0-47.0); HEMOGLOBIN 12.1 g/dL (12.0-15.5); LYMPHOCYTES % (AUTO) 23.5 % (13-45); MEAN CORPUSCULAR HEMOGLOBIN 24.7 pg (27.0-33.4); MEAN CORPUSCULAR HGB CONC 33.3 g/dL (32.0-36.0); MEAN CORPUSCULAR VOLUME 74 fl (80-97); MONOCYTES % (AUTO) 6.3 % (3-13); PLATELET COUNT 226 10^3/uL (150-450); RED BLOOD COUNT 4.89 10^6/uL (3.72-5.28); SEGMENTED NEUTROPHILS % (AUTO) 68.3 % (42-78); TOTAL CELLS COUNTED % (AUTO) 100 %; WHITE BLOOD COUNT 11.4 10^3/uL (4.0-10.5)
--- NOTE | 2019-06-14 01:22 | RADIOLOGY REPORT (SQ) ---
EXAM DESCRIPTION: X-RAY CHEST ONE VIEW CLINICAL HISTORY: 38 years Female cp COMPARISON: 05/16/2019 TECHNIQUE: Portable upright chest at 0055 hours on 06/14/2019. FINDINGS: EKG leads overlie the chest. The lungs are hypoinflated and clear. The costophrenic angles are sharp. The heart is normal in size with normal pulmonary vascularity. No acute bony abnormalities are observed. IMPRESSION: No active cardiopulmonary lesions.
--- NOTE | 2019-06-14 01:22 | ER Document Report ---
ED General - General Chief Complaint: Shortness Of Breath Stated Complaint: CHEST PAIN Time Seen by Provider: 06/14/19 01:02 Primary Care Provider: HAYDEE ADAM MD [Primary Care Provider] - Follow up as needed Mode of Arrival: Medic Information source: Patient Notes: This 38-year-old woman presents to the emergency department with a complaint of cough, productive of a clear sputum, developed sudden shortness of breath and chest pain tonight at approximately 2245. She took nitroglycerin at home, aspirin 324 mg, 2 nebulizer treatments and no improvement. EMS was called patient was given an additional sublingual nitroglycerin x3 without relief of chest pain. She now rates her pain 9/10 substernal with some radiation into the left arm. She has a prior medical history of diabetes mellitus, hypertension, COPD, CHF, atrial fibrillation, asthma and a dilated cardiomyopathy. He states her blood sugars have been running a little high lately, mid to upper 200s. TRAVEL OUTSIDE OF THE [place] IN LAST 30 DAYS: No - Related Data Allergies/Adverse Reactions: amoxicillin [Amoxicillin] Allergy (Severe, Verified 06/14/19 00:40) Anaphylaxis Penicillins Allergy (Severe, Verified 06/14/19 00:40) Anaphylaxis Bees/Wasp Allergy (Severe, Uncoded 03/07/19 21:09) Anaphylaxis Past Medical History - Social History Smoking Status: Former Smoker Family History: Reviewed & Not Pertinent, CAD, DM, Hypertension, Malignancy Patient has suicidal ideation: No Patient has homicidal ideation: No - Past Medical History Cardiac Medical History: Reports: Hx Atrial Fibrillation, Hx Congestive Heart Failure, Hx Hypercholesterolemia, Hx Hypertension Denies: Hx Coronary Artery Disease, Hx Heart Attack Pulmonary Medical History: Reports: Hx Asthma, Hx Bronchitis, Hx COPD, Hx Pneumonia, Hx Respiratory Failure - chronic: on 3 L/min of oxygen per nasal cannula, continuously. Neurological Medical History: Denies: Hx Cerebrovascular Accident, Hx Seizures Endocrine Medical History: Reports: Hx Diabetes Mellitus Type 2 - insulin dependent. Denies: Hx Diabetes Mellitus Type 1, Hx Hyperthyroidism, Hx Hypothyroidism Renal/ Medical History: Reports: Hx Kidney Stones. Denies: Hx Peritoneal Dialysis GI Medical History: Denies: Hx Cirrhosis, Hx Crohn's Disease, Hx Hepatitis, Hx Ulcerative Colitis Musculoskeletal Medical History: Denies Hx Arthritis, Denies Hx Fibromyalgia Skin Medical History: Denies Hx Eczema, Denies Hx Psoriasis Psychiatric Medical History: Reports: Hx Anxiety, Hx Bipolar Disorder, Hx Depression Infectious Medical History: Denies: Hx Hepatitis Past Surgical History: Reports: Hx Abdominal Surgery - hernia, Hx Cardiac Catheterization, Hx Cholecystectomy, Hx Herniorrhaphy, Hx Umbilical Hernia - Immunizations Immunizations up to date: No Hx Diphtheria, Pertussis, Tetanus Vaccination: Yes Hx Pneumococcal Vaccination: 11/12/17 Review of Systems - Review of Systems Notes: Constitutional: Negative for fever. HENT: Negative for sore throat. Eyes: Negative for visual changes. Cardiovascular: + Chest pain. Respiratory: + Cough, + shortness of breath. Gastrointestinal: Negative for abdominal pain, vomiting or diarrhea. Genitourinary: Negative for dysuria. Musculoskeletal: Negative for back pain. Skin: Negative for rash. Neurological: Negative for headaches, weakness or numbness. 10 point ROS negative except as marked above and in HPI. Physical Exam - Vital signs Vitals: Pulse Ox 99 06/14/19 00:24 - Notes Notes: PHYSICAL EXAMINATION: Physical Exam: General: Morbidly obese 38-year-old woman in moderate distress secondary to chest pain and shortness of breath. HEENT: NC/AT, pupils equal round and reactive to light, MM moist,nares clear, oropharynx clear, airway patent Neck: supple, no adenopathy, no masses. Good range of motion Lungs: + Upper airway coarse breath sounds with bilateral inspiratory rales. No wheezes, no rhonchi. CVS: Regular rate and rhythm no murmur gallop or rub Abdomen: Soft, active, nontender, no masses, no hepatosplenomegaly Ext: No edema, clubbing or cyanosis. Neuro: Alert and responsive, moving all 4 extremities on command, cranial nerves intact, no focal findings Skin: Intact no open lesions, no rash PSYCH: Normal mood, normal affect. Course - Re-evaluation Re-evalutation: 06/14/19 05:35 Patient is feeling much better, thinks that she may have had a COPD exacerbation with associated chest pain, she has had something similar in the past, she has been given a Xopenex nebulizer treatment, she has an oxygen tank with her and states that she can go home by taxi. I do not believe the patient exhibits symptoms coronavirus infection. Given her multiple risk factors, COPD, respiratory failure, O2 dependent, diabetes mellitus, history of cardiomyopathy, I have increased encouraged her to follow-up with her primary care doctor and to monitor closely for signs and symptoms of a respiratory type. Her symptoms are worsening or she has other concerns she may return to the emergency department for further evaluation and treatment. He develop fever she is encouraged to be reassessed. Patient acknowledges understanding of this plan and will call with as needed. - Vital Signs Vital signs: Temp Pulse Resp BP Pulse Ox 98.5 F 90 22 H 146/98 H 100 06/14/19 00:36 06/14/19 00:36 06/14/19 03:00 06/14/19 02:01 06/14/19 03:00 - Laboratory Result Diagrams: 06/14/19 00:55 06/14/19 00:55 Laboratory results interpreted by me: 06/14/19 06/14/19 06/14/19 00:55 00:55 00:55 WBC 11.4 H MCV 74 L MCH 24.7 L RDW 17.0 H Sodium 135.6 L Glucose 219 H NT-Pro-B Natriuret Pep 1400 H Total Protein 6.2 L Urine Glucose (UA) Urine Ketones Urine Ascorbic Acid 06/14/19 04:15 WBC MCV MCH RDW Sodium Glucose NT-Pro-B Natriuret Pep Total Protein Urine Glucose (UA) >=500 H Urine Ketones TRACE H Urine Ascorbic Acid 20 H - Diagnostic Test Radiology reviewed: Image reviewed, Reports reviewed - Chest x-ray: No acute cardiopulmonary findings. CTA chest: No CT evidence of a pulmonary embolus, no focal pulmonary infiltrates. Discharge - Discharge Clinical Impression: Insulin dependent type 2 diabetes mellitus, uncontrolled, Morbid obesity with BMI of 40.0-44.9, adult, COPD exacerbation, Shortness of breath, On home O2 Hypertension Qualifiers: Hypertension type: essential hypertension Qualified Code(s): I10 - Essential (primary) hypertension Leukocytosis Qualifiers: Leukocytosis type: unspecified Qualified Code(s): D72.829 - Elevated white blood cell count, unspecified Disposition: HOME, SELF-CARE Instructions: Chest Pain of Unclear Cause ([facility]), Chronic Obstructive Lung Disease ([facility]) Additional Instructions: You are diagnosed with noncardiac chest pain, likely related to your COPD exacerbation episode. Please continue nebulizer treatments, home O2 and medicines for blood pressure and diabetes. Please follow-up with your primary care doctor regarding blood pressure control and adjustment of medications as needed as well as management of diabetes. If you develop worsening symptoms or other concerns you may return to the emergency department for further evaluation and treatment. With regards to the coronavirus, the acuity of his symptoms do not suggest infection with coronavirus. A negative CT of the chest is also reassuring. However, if you develop fever, worsening cough, or other symptoms of concern do not hesitate to be reevaluated. HOME CARE INSTRUCTIONS & INFORMATION: Thank you for choosing us for your medical needs. We hope you're satisfied with the care you received. After you leave, you must properly care for your problem and, at the same time, observe its progress. Any condition can change. Some illnesses can change rapidly over hours or days. If your condition worsens, return to the Emergency Department or see your physician promptly. ABOUT YOUR X-RAYS AND EKG'S: If you had an EKG or X-rays taken, they have been read by the Emergency Physician. The X-rays and EKG's will also be read by a Radiologist or Music Historian within 24 hours. If discrepancies are noted, you will be notified by telephone. Please be certain the ED has a correct telephone number & address where you can be reached. Also, realize that some fractures or abnormalities do not show up on initial X-rays. If your symptoms continue, see your physician. ABOUT YOUR LABORATORY TEST: If you had laboratory tests, the results have been reviewed by the Emergency Physician. Some test results (for example cultures) may not be available for several days. You will be contacted if any test result shows you need additional treatment. Please be certain the ED has a correct telephone number and address where you can be reached. ABOUT YOUR MEDICATIONS: You will receive instructions on how to take your medicine on the prescription label you receive. Additional information may be provided by the Pharmacy. If you have questions afterwards, call the ED for clarification or further instructions. Some prescribed medications may cause drowsiness. Do not perform tasks such as driving a car or operating machinery without consulting your Pharmacist. If you feel you need a refill of pain medication, your condition will need re-evaluation. Please do not call for a refill of any medication. ABOUT YOUR SIGNATURE: Signature of this document acknowledges to followin. Understanding that you received emergency treatment and that you may be released before al medical problems are known or treated. Please be certain the ED has a correct phone number & address where you can be reached. 2. Acknowledgement that you will arrange for follow-up care as recommended. 3. Authorization for the Emergency Physician to provide information to your follow-up Physician in order to maximize your care. AT ANY TIME, IF YOUR SYMPTOMS CHANGE SIGNIFICANTLY OR WORSEN OR YOU DEVELOP NEW SYMPTOMS, RETURN TO THE EMERGENCY DEPARTMENT IMMEDIATELY FOR RE-EVALUATION. OUR GOAL IS TO PROVIDE EXCELLENT MEDICAL CARE! WE HOPE THAT WE HAVE MET YOUR EXPECTATIONS DURING YOUR EMERGENCY DEPARTMENT VISIT AND THAT YOU FEEL YOU HAVE RECEIVED EXCELLENT CARE! Referrals: HAYDEE ADAM MD [Primary Care Provider] - Follow up as needed
[2019-06-14] MEDS ORDERED: MORPHINE SULFATE 10 MG/ML INJ IV ONE (01:24)
[2019-06-14 01:37] LABS: ALBUMIN 3.6 g/dL (3.5-5.0); ALKALINE PHOSPHATASE 63 U/L (38-126); ANION GAP 8 (5-19); ASPARTATE AMINO TRANSFERASE 16 U/L (14-36); BILIRUBIN,TOTAL 0.4 mg/dL (0.2-1.3); BLOOD UREA NITROGEN 11 mg/dL (7-20); CALCIUM 9.1 mg/dL (8.4-10.2); CARBON DIOXIDE 24 mmol/L (22-30); CHLORIDE 104 mmol/L (98-107); CREATINE KINASE 101 U/L (30-135); GLUCOSE 219 mg/dL (75-110); POTASSIUM 4.1 mmol/L (3.6-5.0); TOTAL PROTEIN 6.2 g/dL (6.3-8.2)
[2019-06-14 01:48] LABS: CREATINE KINASE MB 0.98 ng/mL (<4.55)
[2019-06-14 01:51] LABS: TROPONIN I 0.062 ng/mL
[2019-06-14] MEDS ORDERED: FENTANYL CITRATE INJ/PF 100 MCG/2 ML AMPUL IV ONE (04:28)
[2019-06-14] MEDS ORDERED: KETOROLAC TROMETHAMINE INJ/PF 30 MG/1 ML SDV IV ONE (04:53)
[2019-06-14 05:06] LABS: APPEARANCE,URINE CLEAR; BILIRUBIN,URINE NEGATIVE (NEGATIVE); COLOR,URINE YELLOW; GLUCOSE, URINE >=500 mg/dL (NEGATIVE); KETONES,URINE TRACE mg/dL (NEGATIVE); PROTEIN,URINE NEGATIVE (NEGATIVE); URINE SPECIFIC GRAVITY 1.035; UROBILINOGEN,URINE NEGATIVE mg/dL (<2.0)
[2019-06-14] MEDS ORDERED: LEVALBUTEROL HCL NEB 1.25 MG/3 ML AMPUL NEB ONE (05:28)
[2019-06-14 06:03] VITALS: BP 169/108
--- NOTE | 2019-06-14 06:52 | RADIOLOGY REPORT (SQ) ---
EXAM DESCRIPTION: CTA CHEST RadLex: CT CHEST ANGIOGRAPHY WITHOUT THEN WITH IV CONTRAST CLINICAL HISTORY: 38 years Female; CHEST PAIN. SOB.; TECHNIQUE: CT angiogram of the chest using intravenous contrast. MIP reconstructions were performed. All CT scans at this facility use dose modulation, iterative reconstruction, and/or weight based dosing when appropriate to reduce radiation dose to as low as reasonably achievable. COMPARISON: 03/07/2019 FINDINGS: Chest: No filling defects in the central pulmonary arteries. No acute infiltrate, effusion, or pneumothorax. Infiltrates and effusions seen on prior exam resolved. There is no significant focal consolidation. Mediastinum is normal, with no adenopathy or mass. No thoracic aortic aneurysm or dissection. Bony structures are unremarkable for age. Hepatic steatosis is again noted. Gallbladder is surgically absent. IMPRESSION: 1. No CT evidence for pulmonary embolism. 2. No focal pulmonary infiltrates.
--- NOTE | 2019-06-14 09:29 | EKG REPORT ---
SEVERITY:- ABNORMAL ECG - SINUS RHYTHM ABNORMAL Q SUGGESTS ANTERIOR INFARCT BORDERLINE T WAVE ABNORMALITIES : Confirmed by: Tan Mobley 14-Jun-2019 09:29:08
== END 2019-06-14 06:00 | disposition home or self-care (01) ==
LOC: ER 00:21
DX: J44.1 Chronic obstructive pulmonary disease with (acute) exacerbation (principal); Z99.81 Dependence on supplemental oxygen; E11.65 Type 2 diabetes mellitus with hyperglycemia; D72.829 Elevated white blood cell count, unspecified; E66.01 Morbid (severe) obesity due to excess calories; Z68.41 Body mass index [BMI] 40.0-44.9, adult; I10 Essential (primary) hypertension; R06.02 Shortness of breath; R05 Cough; R07.2 Precordial pain; Z87.892 Personal history of anaphylaxis; Z88.0 Allergy status to penicillin; Z91.030 Bee allergy status; Z91.038 Other insect allergy status; Z87.891 Personal history of nicotine dependence
CPT/HCPCS: 93005; 94640; 99285; 96374; 96375; 36415; 87040; 82553; 82550; 83605; 85025; 87077; 80053; 81001; 84484; 87150 ×26; 83880; 71045; 71275; 93010; J3010; J1885; J2270; J3490

== ENCOUNTER 2019-07-01 00:43 | Emergency (ER) | payer MEDICAID ==
[2019-07-01 01:11] LABS: ABSOLUTE BASOPHILS # (AUTO) 0.1 10^3/uL (0.0-0.2); ABSOLUTE EOSINOPHILS # (AUTO) 0.2 10^3/uL (0.0-0.6); ABSOLUTE LYMPHOCYTES (AUTO) 2.6 10^3/uL (0.5-4.7); ABSOLUTE MONOCYTES (AUTO) 0.7 10^3/uL (0.1-1.4); ABSOLUTE NEUT (AUTO) 7.8 10^3/uL (1.7-8.2); BASOPHILS % (AUTO) 0.7 % (0-2); EOSINOPHILS % (AUTO) 1.8 % (0-6); HEMATOCRIT 35.5 % (36.0-47.0); HEMOGLOBIN 11.8 g/dL (12.0-15.5); LYMPHOCYTES % (AUTO) 22.9 % (13-45); MEAN CORPUSCULAR HEMOGLOBIN 24.7 pg (27.0-33.4); MEAN CORPUSCULAR HGB CONC 33.1 g/dL (32.0-36.0); MEAN CORPUSCULAR VOLUME 75 fl (80-97); MONOCYTES % (AUTO) 5.8 % (3-13); PLATELET COUNT 230 10^3/uL (150-450); RED BLOOD COUNT 4.76 10^6/uL (3.72-5.28); RED CELL DISTRIBUTION WIDTH 16.7 % (11.5-14.0); SEGMENTED NEUTROPHILS % (AUTO) 68.8 % (42-78); TOTAL CELLS COUNTED % (AUTO) 100 %; WHITE BLOOD COUNT 11.3 10^3/uL (4.0-10.5)
[2019-07-01 01:17] LABS: PROTHROMBIN TIME 15.3 SEC (11.4-15.4)
[2019-07-01 01:29] LABS: ALBUMIN 3.7 g/dL (3.5-5.0); ALKALINE PHOSPHATASE 62 U/L (38-126); ANION GAP 7 (5-19); ASPARTATE AMINO TRANSFERASE 19 U/L (14-36); BILIRUBIN,TOTAL 0.4 mg/dL (0.2-1.3); BLOOD UREA NITROGEN 11 mg/dL (7-20); CALCIUM 8.6 mg/dL (8.4-10.2); CARBON DIOXIDE 27 mmol/L (22-30); CHLORIDE 105 mmol/L (98-107); GLUCOSE 247 mg/dL (75-110); POTASSIUM 3.8 mmol/L (3.6-5.0); TOTAL PROTEIN 6.3 g/dL (6.3-8.2)
[2019-07-01] MEDS ORDERED: LORAZEPAM INJ 2 MG/1 ML VIAL IV ONE (02:15)
--- NOTE | 2019-07-01 02:16 | ER Document Report ---
ED General - General Chief Complaint: Shortness Of Breath Stated Complaint: CHEST PAIN,SHORTNESS OF BREATH Time Seen by Provider: 07/01/19 01:56 Primary Care Provider: HAYDEE ADAM MD [Primary Care Provider] - 07/03/19 Notes: Patient is a 38-year-old female that comes emergency department for chief complaint of shortness of breath. She states that she felt like she could not breathe prior to arrival, she states she thought it might be an asthma attack so she used her albuterol nebulizer but this did not help. She states when this was not helping she called EMS. EMS gave her 324 mg of aspirin and 2 sublingual nitroglycerin. Patient denies any significant change. She still feels intermittent shortness of breath, she states it hurts when she takes a deep breath and she will feel a pain radiates through her chest when she does. She also reports that she has had a nonproductive cough for the past 2 to 3 days. She denies fever/chills, nausea/vomiting, abdominal pain. She denies injury. Patient has a complicated medical history including dilated cardiomyopathy, asthma/COPD on 3 L nasal cannula at all times, CHF, atrial fibrillation, pulmonary embolism not currently on a blood thinner, type 2 diabetes, hypertension. TRAVEL OUTSIDE OF THE [place] IN LAST 30 DAYS: No - Related Data Allergies/Adverse Reactions: amoxicillin [Amoxicillin] Allergy (Severe, Verified 06/14/19 00:40) Anaphylaxis Penicillins Allergy (Severe, Verified 06/14/19 00:40) Anaphylaxis Bees/Wasp Allergy (Severe, Uncoded 03/07/19 21:09) Anaphylaxis Past Medical History - General Information source: Patient - Social History Smoking Status: Never Smoker Chew tobacco use (# tins/day): No Frequency of alcohol use: None Drug Abuse: None Family History: Reviewed & Not Pertinent, CAD, DM, Hypertension, Malignancy Patient has suicidal ideation: No Patient has homicidal ideation: No - Past Medical History Cardiac Medical History: Reports: Hx Atrial Fibrillation, Hx Congestive Heart Failure, Hx Hypercholesterolemia, Hx Hypertension Denies: Hx Coronary Artery Disease, Hx Heart Attack Pulmonary Medical History: Reports: Hx Asthma, Hx Bronchitis, Hx COPD, Hx Pneumonia, Hx Respiratory Failure - chronic: on 3 L/min of oxygen per nasal cannula, continuously. Neurological Medical History: Denies: Hx Cerebrovascular Accident, Hx Seizures Endocrine Medical History: Reports: Hx Diabetes Mellitus Type 2 - insulin dependent. Denies: Hx Diabetes Mellitus Type 1, Hx Hyperthyroidism, Hx H ypothyroidism Renal/ Medical History: Reports: Hx Kidney Stones. Denies: Hx Peritoneal Dialysis GI Medical History: Denies: Hx Cirrhosis, Hx Crohn's Disease, Hx Hepatitis, Hx Ulcerative Colitis Musculoskeletal Medical History: Denies Hx Arthritis, Denies Hx Fibromyalgia Skin Medical History: Denies Hx Eczema, Denies Hx Psoriasis Psychiatric Medical History: Reports: Hx Anxiety, Hx Bipolar Disorder, Hx Depression Infectious Medical History: Denies: Hx Hepatitis Past Surgical History: Reports: Hx Abdominal Surgery - hernia, Hx Cardiac Catheterization, Hx Cholecystectomy, Hx Herniorrhaphy, Hx Umbilical Hernia - Immunizations Immunizations up to date: No Hx Diphtheria, Pertussis, Tetanus Vaccination: Yes Hx Pneumococcal Vaccination: 11/12/17 Review of Systems - Review of Systems Constitutional: See HPI EENT: No symptoms reported Cardiovascular: See HPI Respiratory: See HPI Gastrointestinal: No symptoms reported Genitourinary: No symptoms reported Female Genitourinary: No symptoms reported Musculoskeletal: See HPI Skin: No symptoms reported Hematologic/Lymphatic: No symptoms reported Neurological/Psychological: No symptoms reported Physical Exam - Vital signs Vitals: Pulse Ox 98 07/01/19 00:47 - Notes Notes: GENERAL: Alert, interacts well. No acute distress. HEAD: Normocephalic, atraumatic. EYES: Pupils equal, round, and reactive to light. Extraocular movements intact. ENT: Oral mucosa moist, tongue midline. Oropharynx unremarkable. Airway patent. Nares patent, sinuses non-tender, ear canals unremarkable, TM's intact. NECK: Full range of motion. Supple. Trachea midline. No lymphadenopathy. LUNGS: Clear to auscultation bilaterally, no wheezes, rales, or rhonchi. No respiratory distress. There is generalized tenderness of the anterior chest wall without severe tenderness, there is some pleuritic pain with deep breaths, occasional cough. Speaking in full sentences HEART: Regular rate and rhythm. ABDOMEN: Soft, non-tender. Non-distended. EXTREMITIES: Moves all 4 extremities spontaneously. No edema, normal radial and dorsalis pedis pulses bilaterally. No cyanosis. BACK: no cervical, thoracic, lumbar midline tenderness. No saddle anesthesia, normal distal neurovascular exam. Moves all extremities in full range of motion. NEUROLOGICAL: Alert and oriented x3. Normal speech. Cranial nerves II through XII grossly intact. Strength 5/5 in all extremities. PSYCH: Normal affect, normal mood. SKIN: Warm, dry, normal turgor. No rashes or lesions noted. Course - Re-evaluation Re-evalutation: Patient has chest wall tenderness on exam, pleuritic pain with deep breaths, occasional cough that is worsening per patient. However she is very talkative, well-appearing, she has no tachypnea or labored breathing, she is not hypoxic or tachycardic on my evaluation. She has no wheezing, rales, or lower extremity swelling. CBC without significant change from prior, chemistry nonspecific with some hyper glycemia without acidosis. BNP is slightly elevated at 900 but this is decreased from prior. Troponin is decreased from prior. D-dimer is not elevated. Chest x-ray showing possible vascular congestion versus developing pneumonia which cannot be ruled out. Based on patient's decreased BNP, lack of rales or lower extremity swelling, I have a lower suspicion that this is CHF exacerbation and I have a higher suspicion based on her cough, pleuritic pain that this is developing pneumonia. Patient has had the pneumonia vaccine. Initially patient did not want a be tested for the coronavirus but after I discussed in detail the recommendation she did comply. On reevaluation patient remains very mobile, laughing, talkative, without hypoxia or tachypnea, she does not complain of shortness of breath at this time, she is still having some pleuritic chest pain. I did discuss options, she does not want prednisone but is requesting dexamethasone. This was provided but I did caution her about hyperglycemia and she states she will just for this with her sliding scale. She will be started on antibiotics, I discussed follow-up and strict return precautions because of her multiple comorbidities and possible developing pneumonia. Troponin cycled and downtrending. Patient states understanding and agreement with plan, stable and well-appearing at time of discharge. - Vital Signs Vital signs: Temp Pulse Resp BP Pulse Ox 99.5 F 98 22 H 143/91 H 98 07/01/19 00:55 07/01/19 00:55 07/01/19 04:01 07/01/19 04:01 07/01/19 04:01 - Laboratory Result Diagrams: 07/01/19 00:54 07/01/19 00:54 Laboratory results interpreted by me: 07/01/19 07/01/19 07/01/19 00:54 00:54 00:54 WBC 11.3 H Hgb 11.8 L Hct 35.5 L MCV 75 L MCH 24.7 L RDW 16.7 H Glucose 247 H NT-Pro-B Natriuret Pep 992 H - EKG Interpretation by Me Additional EKG results interpreted by me: EKG shows sinus rhythm at a rate of 96, QTC of 476, Q waves anteriorly, normal axis, no T wave inversions or ST segment changes in consecutive leads. No change noted from prior. Discharge - Discharge Clinical Impression: Cough, Chest wall pain, Pleuritic chest pain Condition: Stable Disposition: HOME, SELF-CARE Additional Instructions: Your chest x-ray suggest possible developing pneumonia. Because of this along with your cough you have been started on antibiotics and had testing for the coronavirus. Use your inhaler as prescribed, continue your current medications, take the antibiotic as prescribed, follow-up with your primary care provider very closely. Please follow quarantine instructions listed below. Return if you worsen in any way including spiking fevers, difficulty breathing, vomiting, or any other concerning or worsening symptoms. As a person under investigation for COVID-19, the [place] Department of Health and Human Services (divison on public health) advises you to adhere to the following guidance until your test results are reported to you. If your test result is positive, you will receive additional information from your provider and your local health department at that time. Remain at home until you are cleared by the health provider or public health authorities. Keep a log of visitors to your home, notify any visitors to your home of your isolation status. If you plan to move to a new address or leave the [facility], notify the local health department in your County. Call your Doctor or seek care if you have an urgent medical need. Before seeking medical care, call him to get instructions from the provider before arriving at the medical office, clinic, or hospital. Notify them that you are being tested for the virus (COVID-19) so that arrangements can be made, as necessary, to prevent transmission to others in the healthcare setting. Next, notify the local health department in your county. If a medical emergency arises and you need to call 911, inform the first responders that you are being tested for the virus that causes COVID-19. Next, notify the local health department in your county. Prescriptions: Doxycycline Hyclate [Vibramycin 100 mg Tablet] 100 mg PO BID 7 Days #14 tablet Referrals: HAYDEE ADAM MD [Primary Care Provider] - 07/03/19
--- NOTE | 2019-07-01 02:27 | RADIOLOGY REPORT (SQ) ---
CLINICAL HISTORY: Chest Pain; Short of breath COMPARISON: 06/14/2019. TECHNIQUE: XR CHEST 1 VIEW 07/01/2019 1:02 AM CDT FINDINGS: The heart is mildly enlarged. There is minimal bilateral perihilar interstitial prominence. There is no pleural effusion. There is no pneumothorax. There are no acute osseous findings. IMPRESSION: Possible mild pulmonary edema. Difficult to exclude developing bilateral perihilar pneumonia.
[2019-07-01] MEDS ORDERED: LIDOCAINE 1% INJ-PF (10 MG/ML) 30 ML SDV NEB ONE (04:44)
[2019-07-01] MEDS ORDERED: OXYCODONE HCL IR 5 MG TABLET PO ONE (05:36)
[2019-07-01] MEDS ORDERED: DOXYCYCLINE HYCLATE 100 MG TABLET PO ONE (05:36)
[2019-07-01] MEDS ORDERED: DEXAMETHASONE SOD PHOS INJ 10 MG/1 ML VIAL IV ONE (05:36)
[2019-07-01] MEDS ORDERED: ONDANSETRON HCL INJ/PF 4 MG/2 ML SDV IV ONE (05:51)
[2019-07-01] MEDS ORDERED: ONDANSETRON HCL INJ/PF 4 MG/2 ML SDV ONE (05:52)
[2019-07-01 06:08] VITALS: BP 147/106
--- NOTE | 2019-07-01 11:57 | EKG REPORT ---
SEVERITY:- ABNORMAL ECG - SINUS RHYTHM ABNORMAL Q SUGGESTS ANTERIOR INFARCT NONSPECIFIC T ABNORMALITIES, LATERAL LEADS : Confirmed by: Eder John MD 01-Jul-2019 11:57:13
== END 2019-07-01 06:09 | disposition home or self-care (01) ==
LOC: ER 00:43
DX: Z20.828 Contact with and (suspected) exposure to other viral communicable diseases (principal); R07.89 Other chest pain; R07.81 Pleurodynia; R05 Cough; I50.9 Heart failure, unspecified; I48.91 Unspecified atrial fibrillation; E78.00 Pure hypercholesterolemia, unspecified; I11.0 Hypertensive heart disease with heart failure; J44.9 Chronic obstructive pulmonary disease, unspecified; E11.9 Type 2 diabetes mellitus without complications; Z88.0 Allergy status to penicillin; Z79.4 Long term (current) use of insulin; Z87.442 Personal history of urinary calculi; Z90.49 Acquired absence of other specified parts of digestive tract
CPT/HCPCS: 93005; 99284; 96374; 96375; 36415; 85025; 85610; 87635; 80053; 84484; 85379; 83880; 71045; 93010; J3490 ×3; J2060; J2405; J1100

== ENCOUNTER 2019-07-19 21:06 | Emergency (ER) | payer MEDICAID ==
--- NOTE | 2019-07-19 21:37 | EKG REPORT ---
SEVERITY:- ABNORMAL ECG - SINUS RHYTHM ABNORMAL Q SUGGESTS ANTERIOR INFARCT NONSPECIFIC T ABNORMALITIES, LATERAL LEADS : Confirmed by: Eder John MD 19-Jul-2019 21:36:39
[2019-07-19 21:44] LABS: ABSOLUTE EOSINOPHILS # (AUTO) 0.2 10^3/uL (0.0-0.6); ABSOLUTE LYMPHOCYTES (AUTO) 2.5 10^3/uL (0.5-4.7); ABSOLUTE MONOCYTES (AUTO) 0.8 10^3/uL (0.1-1.4); ABSOLUTE NEUT (AUTO) 8.6 10^3/uL (1.7-8.2); BASOPHILS % (AUTO) 0.4 % (0-2); EOSINOPHILS % (AUTO) 1.8 % (0-6); HEMATOCRIT 34.4 % (36.0-47.0); HEMOGLOBIN 11.4 g/dL (12.0-15.5); LYMPHOCYTES % (AUTO) 20.4 % (13-45); MEAN CORPUSCULAR HEMOGLOBIN 24.7 pg (27.0-33.4); MEAN CORPUSCULAR HGB CONC 33.1 g/dL (32.0-36.0); MEAN CORPUSCULAR VOLUME 75 fl (80-97); MONOCYTES % (AUTO) 6.3 % (3-13); PLATELET COUNT 200 10^3/uL (150-450); RED BLOOD COUNT 4.61 10^6/uL (3.72-5.28); SEGMENTED NEUTROPHILS % (AUTO) 71.1 % (42-78); TOTAL CELLS COUNTED % (AUTO) 100 %; WHITE BLOOD COUNT 12.1 10^3/uL (4.0-10.5)
[2019-07-19 22:02] LABS: ALBUMIN 3.6 g/dL (3.5-5.0); ALKALINE PHOSPHATASE 58 U/L (38-126); ANION GAP 6 (5-19); ASPARTATE AMINO TRANSFERASE 17 U/L (14-36); BILIRUBIN,TOTAL 0.3 mg/dL (0.2-1.3); BLOOD UREA NITROGEN 15 mg/dL (7-20); CALCIUM 8.8 mg/dL (8.4-10.2); CARBON DIOXIDE 26 mmol/L (22-30); CHLORIDE 104 mmol/L (98-107); CREATINE KINASE 116 U/L (30-135); GLUCOSE 264 mg/dL (75-110); POTASSIUM 3.9 mmol/L (3.6-5.0); TOTAL PROTEIN 6.1 g/dL (6.3-8.2)
--- NOTE | 2019-07-19 22:08 | ER Document Report ---
Entered by INESSA ROBERTS SCRIBE 07/19/19 8730 Acting as scribe for:ANNA BRAR DO ED General - General Chief Complaint: Chest Pain Stated Complaint: CHEST PAIN Time Seen by Provider: 07/19/19 21:26 Primary Care Provider: HAYDEE ADAM MD [Primary Care Provider] - Follow up as needed Mode of Arrival: Medic Information source: Patient Notes: This 38 year old female patient with a history of A fib, CHF, HTN, cardiomyopathy, asthma, and COPD brought in by EMS from home presents to the ED today with complaints of mid-left sub sternal chest pain and pressure that started prior to arrival. Patient describes the pain as sharp and stabbing that rates 4/5 while lying still and 10/5 with movement. She states that the pain feels similar to the chest pain that she experienced during her last visit here on 07/01/2019; she notes that she hasn't felt "completely better" after her course of antibiotics that she was prescribed from this visit. 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 EMS reports that they administered x3 additional sprays of Nitroglycerin with minimal relief. Patient states that she is on 3L O2 via [place] at home. She also notes that she has a residential monitor on from home because she is getting a defibrillator soon; she admits that her appointment to see her drop forger is on 07/24/2019. She also reports that her friend stated that the patient became pale and "passed out" for approximately x5-6 minutes around 0900 this morning while they were talking. Denies fever, sick contacts, or any recent travel. TRAVEL OUTSIDE OF THE [place] IN LAST 30 DAYS: No - Related Data Allergies/Adverse Reactions: amoxicillin [Amoxicillin] Allergy (Severe, Verified 06/14/19 00:40) Anaphylaxis Penicillins Allergy (Severe, Verified 06/14/19 00:40) Anaphylaxis Bees/Wasp Allergy (Severe, Uncoded 03/07/19 21:09) Anaphylaxis Past Medical History - General Information source: Patient - Social History Smoking Status: Former Smoker Cigarette use (# per day): No Chew tobacco use (# tins/day): No Smoking Education Provided: No Frequency of alcohol use: None Drug Abuse: None Family History: Reviewed & Not Pertinent, CAD, DM, Hypertension, Malignancy Patient has suicidal ideation: No Patient has homicidal ideation: No - Past Medical History Cardiac Medical History: Reports: Hx Atrial Fibrillation, Hx Congestive Heart Failure, Hx Hypercholesterolemia, Hx Hypertension Pulmonary Medical History: Reports: Hx Asthma, Hx Bronchitis, Hx COPD, Hx Pneumonia, Hx Respiratory Failure - chronic: on 3 L/min of oxygen per nasal cannula, continuously. Endocrine Medical History: Reports: Hx Diabetes Mellitus Type 2 - insulin dependent Renal/ Medical History: Reports: Hx Kidney Stones Psychiatric Medical History: Reports: Hx Anxiety, Hx Bipolar Disorder, Hx Depression Past Surgical History: Reports: Hx Abdominal Surgery - hernia, Hx Cardiac Catheterization, Hx Cholecystectomy, Hx Herniorrhaphy, Hx Umbilical Hernia - Immunizations Immunizations up to date: No Hx Diphtheria, Pertussis, Tetanus Vaccination: Yes Hx Pneumococcal Vaccination: 11/12/17 Review of Systems - Review of Systems Constitutional: See HPI. denies: Fever EENT: No symptoms reported Cardiovascular: See HPI, Chest pain Respiratory: No symptoms reported Gastrointestinal: No symptoms reported Genitourinary: No symptoms reported Female Genitourinary: No symptoms reported Musculoskeletal: No symptoms reported Skin: No symptoms reported Hematologic/Lymphatic: No symptoms reported Neurological/Psychological: No symptoms reported -: Yes All other systems reviewed and negative Physical Exam - Vital signs Vitals: Pulse Ox 99 07/19/19 21:13 - General General appearance: Alert In distress: None - HEENT Head: Normocephalic, Atraumatic Eyes: Normal Pupils: PERRL - Respiratory Respiratory status: No respiratory distress Chest status: Nontender Breath sounds: Normal Chest palpation: Normal - Cardiovascular Rhythm: Regular Heart sounds: Normal auscultation Murmur: No Friction rub: No Gallop: None auscultated - Abdominal Inspection: Morbidly Obese Distension: No distension Bowel sounds: Normal Tenderness: Nontender - Abdomen soft Organomegaly: No organomegaly - Back Back: Normal, Nontender - Extremities General upper extremity: Normal inspection General lower extremity: Edema - Trace peripheral edema to LE bilaterally - Neurological Neuro grossly intact: Yes Orientation: AAOx4 Cassandra Coma Scale Eye Opening: Spontaneous [place] Coma Scale Verbal: Oriented [place] Coma Scale Motor: Obeys Commands Cassandra Coma Scale Total: 15 - Psychological Associated symptoms: Normal affect, Normal mood - Skin Skin Temperature: Warm Skin Moisture: Dry Skin Color: Normal Course - Re-evaluation Re-evalutation: 07/20/19 01:28 MDM 38 year old with complex past medical history including chronic respiratory failure. She has had chest pain for several days, really since her last visit here 06/29. After treatment tonight it is better she tells me. There is some degree of chronic cardiomyopathy which would explain the elevated trop. Their is no toxicity at this time as she speaks easily with no difficulty and exhibits no sob. Watching a movie here and tells me she is comfortable leaving and fol low up. Discussed return precautions. - Vital Signs Vital signs: Temp Pulse Resp BP Pulse Ox 99.1 F 15 172/140 H 100 07/19/19 21:22 07/20/19 01:01 07/20/19 01:01 07/20/19 01:01 - Laboratory Result Diagrams: 07/19/19 21:30 07/19/19 21:30 Laboratory results interpreted by me: 07/19/19 07/19/19 07/19/19 21:30 21:30 21:30 WBC 12.1 H Hgb 11.4 L Hct 34.4 L MCV 75 L MCH 24.7 L RDW 17.0 H Absolute Neuts (auto) 8.6 H Sodium 136.2 L Glucose 264 H NT-Pro-B Natriuret Pep 827 H Total Protein 6.1 L - Diagnostic Test Radiology reviewed: Image reviewed, Reports reviewed - EKG Interpretation by Me EKG shows normal: Sinus rhythm Rate: Normal Rhythm: NSR - NSR NL [place] [address] elevation or depression my interpretation. Discharge - Discharge Clinical Impression: Chest wall pain Hypertension Qualifiers: Hypertension type: unspecified Qualified Code(s): I10 - Essential (primary) hypertension Chronic respiratory failure Qualifiers: Respiratory failure complication: hypoxia Qualified Code(s): J96.11 - Chronic respiratory failure with hypoxia Condition: Good Disposition: HOME, SELF-CARE Instructions: Chest Wall Pain ([facility]), Oral Narcotic Medication ([facility]), Chest Pain of Unclear Cause ([facility]) Additional Instructions: See Your doctor in follow up. Call today to schedule follow up. Please return here for any problems or any concerns including but not limited to chest pain or shortness of breath or other concens. Take either tylenol or the tramadol for pain. Referrals: TURLINGTON,HAYDEE, MD [Primary Care Provider] - Follow up as needed I personally performed the services described in the documentation, reviewed and edited the documentation which was dictated to the scribe in my presence, and it accurately records my words and actions.
[2019-07-19 22:10] LABS: CREATINE KINASE MB 1.07 ng/mL (<4.55)
--- NOTE | 2019-07-19 22:11 | RADIOLOGY REPORT (SQ) ---
EXAM DESCRIPTION: XR CHEST 1 VIEW COMPLETED DATE/TME: 07/19/2019 21:25 CLINICAL HISTORY: 38 years, Female, chest pain and pressure COMPARISON: Multiple priors, most recent from 07/01/2019 NUMBER OF VIEWS: One TECHNIQUE: Single frontal view of the chest was obtained portably LIMITATIONS: None. FINDINGS: Cardiac and mediastinal contours are stable. Lung volumes are low. No focal consolidation, pleural effusion, or pneumothorax is evident. IMPRESSION: Negative low lung volume study. copyright 2010 [employer]- All Rights Reserved
[2019-07-19 22:19] LABS: TROPONIN I 0.048 ng/mL
[2019-07-19] MEDS ORDERED: FENTANYL CITRATE INJ/PF 100 MCG/2 ML AMPUL IV ONE (23:24)
[2019-07-19] MEDS ORDERED: ONDANSETRON HCL INJ/PF 4 MG/2 ML SDV IV ONE (23:25)
[2019-07-20 01:51] VITALS: BP 127/102
== END 2019-07-20 01:52 | disposition home or self-care (01) ==
LOC: ER 21:06
DX: R07.89 Other chest pain (principal); J96.11 Chronic respiratory failure with hypoxia; J44.9 Chronic obstructive pulmonary disease, unspecified; I11.9 Hypertensive heart disease without heart failure; I43 Cardiomyopathy in diseases classified elsewhere; R60.0 Localized edema; Z99.81 Dependence on supplemental oxygen; Z87.891 Personal history of nicotine dependence; Z87.892 Personal history of anaphylaxis; Z88.0 Allergy status to penicillin; Z91.038 Other insect allergy status; Z91.030 Bee allergy status
CPT/HCPCS: 93005; 99285; 96374; 96375; 36415; 82553; 82550; 85025; 80053; 84484; 85379; 83880; 71045; 93010; J3010; J2405

== ENCOUNTER 2019-08-18 19:41 | Emergency (ER) | payer MEDICAID ==
--- NOTE | 2019-08-18 20:15 | ER Document Report ---
ED Medical Screen (RME) - General Chief Complaint: Post Surgical Pain Stated Complaint: SWELLING/REDNESS FROM FIBULATOR Time Seen by Provider: 08/18/19 20:14 Primary Care Provider: HAYDEE ADAM MD [Primary Care Provider] - Follow up as needed Information source: Patient Notes: This 38-year-old female presents to the emergency room today stating that she has tenderness redness to a pacer insertion site from last week. She states she is also had a fever and a cough. I greeted and performed a rapid initial assessment of this patient. Comprehensive ED assessment and evaluation of the patient, analysis of test results and completion of the medical decision making process will be conducted by additional ED providers. TRAVEL OUTSIDE OF THE [place] IN LAST 30 DAYS: No - Related Data Allergies/Adverse Reactions: amoxicillin [Amoxicillin] Allergy (Severe, Verified 06/14/19 00:40) Anaphylaxis Penicillins Allergy (Severe, Verified 06/14/19 00:40) Anaphylaxis Bees/Wasp Allergy (Severe, Uncoded 03/07/19 21:09) Anaphylaxis Past Medical History - Social History Chew tobacco use (# tins/day): No Frequency of alcohol use: None Drug Abuse: None Family history: CAD, DM, Hypertension, Malignancy - Past Medical History Cardiac Medical History: Reports: Hx Atrial Fibrillation, Hx Congestive Heart Failure, Hx Hypercholesterolemia, Hx Hypertension Denies: Hx Coronary Artery Disease, Hx Heart Attack Pulmonary Medical History: Reports: Hx Asthma, Hx Bronchitis, Hx COPD, Hx Pneumonia, Hx Respiratory Failure - chronic: on 3 L/min of oxygen per nasal cannula, continuously. Neurological Medical History: Denies: Hx Cerebrovascular Accident, Hx Seizures Endocrine Medical History: Reports: Hx Diabetes Mellitus Type 2 - insulin dependent. Denies: Hx Diabetes Mellitus Type 1, Hx Hyperthyroidism, Hx Hypothyroidism Renal/ Medical History: Reports: Hx Kidney Stones. Denies: Hx Peritoneal Dialysis GI Medical History: Denies: Hx Cirrhosis, Hx Crohn's Disease, Hx Hepatitis, Hx Ulcerative Colitis Musculoskeltal Medical History: Denies Hx Arthritis, Denies Hx Fibromyalgia Skin Medical History: Denies Hx Eczema, Denies Hx Psoriasis Psychiatric Medical History: Reports: Hx Anxiety, Hx Bipolar Disorder, Hx Depression Infectious Medical History: Denies: Hx Hepatitis Past Surgical History: Reports: Hx Abdominal Surgery - hernia, Hx Cardiac Catheterization, Hx Cholecystectomy, Hx Herniorrhaphy, Hx Umbilical Hernia - Immunizations Immunizations up to date: No Hx Diphtheria, Pertussis, Tetanus Vaccination: Yes Physical Exam - Vital signs Vitals: Temp Pulse Resp BP Pulse Ox 98.4 F 98 20 163/102 H 99 08/18/19 19:47 08/18/19 19:47 08/18/19 19:47 08/18/19 19:47 08/18/19 19:47 Course - Vital Signs Vital signs: Temp Pulse Resp BP Pulse Ox 98.4 F 98 20 163/102 H 99 08/18/19 20:10 08/18/19 19:47 08/18/19 19:47 08/18/19 19:47 08/18/19 19:47 Doctor's Discharge - Discharge Referrals: HAYDEE ADAM MD [Primary Care Provider] - Follow up as needed
[2019-08-18 20:49] LABS: ABSOLUTE EOSINOPHILS # (AUTO) 0.3 10^3/uL (0.0-0.6); ABSOLUTE LYMPHOCYTES (AUTO) 2.1 10^3/uL (0.5-4.7); ABSOLUTE MONOCYTES (AUTO) 0.6 10^3/uL (0.1-1.4); ABSOLUTE NEUT (AUTO) 6.7 10^3/uL (1.7-8.2); BASOPHILS % (AUTO) 0.3 % (0-2); EOSINOPHILS % (AUTO) 2.9 % (0-6); HEMOGLOBIN 11.4 g/dL (12.0-15.5); LYMPHOCYTES % (AUTO) 21.9 % (13-45); MEAN CORPUSCULAR HGB CONC 33.5 g/dL (32.0-36.0); MEAN CORPUSCULAR VOLUME 75 fl (80-97); MONOCYTES % (AUTO) 6.4 % (3-13); PLATELET COUNT 182 10^3/uL (150-450); RED BLOOD COUNT 4.56 10^6/uL (3.72-5.28); RED CELL DISTRIBUTION WIDTH 17.4 % (11.5-14.0); SEGMENTED NEUTROPHILS % (AUTO) 68.5 % (42-78); TOTAL CELLS COUNTED % (AUTO) 100 %; WHITE BLOOD COUNT 9.8 10^3/uL (4.0-10.5)
[2019-08-18 21:09] LABS: ALBUMIN 3.4 g/dL (3.5-5.0); ALKALINE PHOSPHATASE 57 U/L (38-126); ANION GAP 7 (5-19); ASPARTATE AMINO TRANSFERASE 20 U/L (14-36); BILIRUBIN,TOTAL 0.4 mg/dL (0.2-1.3); BLOOD UREA NITROGEN 13 mg/dL (7-20); CALCIUM 8.5 mg/dL (8.4-10.2); CARBON DIOXIDE 24 mmol/L (22-30); CHLORIDE 106 mmol/L (98-107); GLUCOSE 313 mg/dL (75-110); POTASSIUM 3.9 mmol/L (3.6-5.0); TOTAL PROTEIN 6.2 g/dL (6.3-8.2)
[2019-08-18 22:48] LABS: APPEARANCE,URINE SLIGHTLY-CLOUDY; BILIRUBIN,URINE NEGATIVE (NEGATIVE); COLOR,URINE YELLOW; GLUCOSE, URINE >=500 mg/dL (NEGATIVE); KETONES,URINE NEGATIVE (NEGATIVE); LEUKOCYTE ESTERASE,URINE NEGATIVE (NEGATIVE); NITRITE,URINE NEGATIVE (NEGATIVE); PROTEIN,URINE NEGATIVE (NEGATIVE); URINE SPECIFIC GRAVITY 1.023; UROBILINOGEN,URINE NEGATIVE mg/dL (<2.0)
--- NOTE | 2019-08-18 22:56 | RADIOLOGY REPORT (SQ) ---
EXAM DESCRIPTION: XR CHEST 1 VIEW COMPLETED DATE/TME: 08/18/2019 20:15 CLINICAL HISTORY: 38 years, Female, pain sp fall COMPARISON: None. NUMBER OF VIEWS: TECHNIQUE: LIMITATIONS: None. FINDINGS: No evidence of pulmonary infiltrate or pleural effusion. No evidence of pneumothorax. The heart is top normal to mildly enlarged. There is a left-sided pacemaker/AICD. Pulmonary vascularity appears normal. No gross evidence of fracture. IMPRESSION: No traumatic abnormality. copyright 2010 [employer]- All Rights Reserved
[2019-08-19] MEDS ORDERED: OXYCODONE HCL IR 5 MG TABLET PO ONE (00:24)
--- NOTE | 2019-08-19 00:28 | ER Document Report ---
ED General - General Chief Complaint: Post Surgical Pain Stated Complaint: SWELLING/REDNESS FROM FIBULATOR Time Seen by Provider: 08/18/19 20:14 Primary Care Provider: HAYDEE ADAM MD [HONORARY] - Follow up as needed Notes: Patient is a 38-year-old female that comes emergency department for chief complaint of pain, swelling sensation, redness to the surgical site where she had an AICD placed by Dr. Post at [facility] on 08/15/2019. She states that she noticed some red "spots" underneath the dressing area on the chest this morning, she states that since yesterday she feels like the shoulder is swollen and more painful, she states that she was not provided with any pain medication. She states that the pain radiates from the pacemaker site into her shoulder and then into her upper back. She denies reinjury. She also states that she had a fever of 101 F at discharge and has had a fever every day including a fever of 102 F at home today. She states that she reported this and was told the fever "wasn't high enough to be concerning". She states she has been taking Tylenol for this. She did not have a fever on arrival. She denies other locations of pain, shortness of breath, vomiting, headache, or any other complaints. Past medical history is complicated including cardiomyopathy, atrial fibrillation, CHF, hypertension, hyperlipidemia, asthma/COPD on 3 L nasal cannula, insulin-dependent diabetes. TRAVEL OUTSIDE OF THE [place] IN LAST 30 DAYS: No - Related Data Allergies/Adverse Reactions: amoxicillin [Amoxicillin] Allergy (Severe, Verified 06/14/19 00:40) Anaphylaxis Penicillins Allergy (Severe, Verified 06/14/19 00:40) Anaphylaxis Bees/Wasp Allergy (Severe, Uncoded 03/07/19 21:09) Anaphylaxis Past Medical History - General Information source: Patient - Social History Smoking Status: Never Smoker Chew tobacco use (# tins/day): No Frequency of alcohol use: None Drug Abuse: None Lives with: Family Family History: Reviewed & Not Pertinent, CAD, DM, Hypertension, Malignancy Patient has homicidal ideation: No - Past Medical History Cardiac Medical History: Reports: Hx Atrial Fibrillation, Hx Congestive Heart Failure, Hx Hypercholesterolemia, Hx Hypertension Denies: Hx Coronary Artery Disease, Hx Heart Attack Pulmonary Medical History: Reports: Hx Asthma, Hx Bronchitis, Hx COPD, Hx Pneu monia, Hx Respiratory Failure - chronic: on 3 L/min of oxygen per nasal cannula, continuously. Neurological Medical History: Denies: Hx Cerebrovascular Accident, Hx Seizures Endocrine Medical History: Reports: Hx Diabetes Mellitus Type 2 - insulin de pendent. Denies: Hx Diabetes Mellitus Type 1, Hx Hyperthyroidism, Hx Hypothyroidism Renal/ Medical History: Reports: Hx Kidney Stones. Denies: Hx Peritoneal Dialysis GI Medical History: Denies: Hx Cirrhosis, Hx Crohn's Disease, Hx Hepatitis, Hx U lcerative Colitis Musculoskeletal Medical History: Denies Hx Arthritis, Denies Hx Fibromyalgia Skin Medical History: Denies Hx Eczema, Denies Hx Psoriasis Psychiatric Medical History: Reports: Hx Anxiety, Hx Bipolar Disorder, Hx Depression Infectious Medical History: Denies: Hx Hepatitis Past Surgical History: Reports: Hx Abdominal Surgery - hernia, Hx Cardiac Catheterization, Hx Cholecystectomy, Hx Herniorrhaphy, Hx Umbilical Hernia - Immunizations Immunizations up to date: No Hx Diphtheria, Pertussis, Tetanus Vaccination: Yes Hx Pneumococcal Vaccination: 11/12/17 Review of Systems - Review of Systems Constitutional: See HPI EENT: No symptoms reported Cardiovascular: No symptoms reported Respiratory: No symptoms reported Gastrointestinal: No symptoms reported Genitourinary: No symptoms reported Female Genitourinary: No symptoms reported Musculoskeletal: No symptoms reported Skin: See HPI Hematologic/Lymphatic: No symptoms reported Neurological/Psychological: No symptoms reported Physical Exam - Vital signs Vitals: Temp Pulse Resp BP Pulse Ox 98.4 F 98 20 163/102 H 99 08/18/19 19:47 08/18/19 19:47 08/18/19 19:47 08/18/19 19:47 08/18/19 19:47 - Notes Notes: GENERAL: Alert, interacts well. No acute distress. Smiling, talkative, well- appearing HEAD: Normocephalic, atraumatic. EYES: Pupils equal, round, and reactive to light. Extraocular movements intact. ENT: Oral mucosa moist, tongue midline. Oropharynx unremarkable. Airway patent. NECK: Full range of motion. Supple. Trachea midline. No lymphadenopathy. LUNGS: Clear to auscultation bilaterally, no wheezes, rales, or rhonchi. No respiratory distress. In the left upper chest wall there is a dressing over the new pacemaker, there is no noted tenderness, swelling, erythema, abnormal heat to the area. No streaking away from the area. HEART: Regular rate and rhythm. No murmur ABDOMEN: Soft, non-tender. Non-distended. Bowel sounds present in all 4 quadrants. GENITOURINARY: Deferred EXTREMITIES: Mild generalized tenderness over the left upper shoulder and back of the shoulder. No noted erythema or swelling. 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 BACK: no cervical, thoracic, lumbar midline tenderness. No saddle anesthesia, normal distal neurovascular exam. NEUROLOGICAL: Alert and oriented x3. Normal speech. Cranial nerves II through XII grossly intact. Strength 5/5 in all extremities. PSYCH: Normal affect, normal mood. SKIN: Warm, dry, normal turgor. No rashes or lesions noted. Course - Re-evaluation Re-evalutation: Vital signs unremarkable here with no tachycardia or fever. Patient has been here for several hours and she still does not have a fever. The area in question does not appear to be infected, chest x-ray unremarkable, CBC does not show leukocytosis, overall evaluation is very reassuring. 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 I spoke with [facility] cardiology on-call Dr. Latif, on-call for Dr. Post. I discussed patient's history, HPI, evaluation. She does recommend the blood cultures which are already pending, she recommends patient can take Tylenol for pain, she states that patient will be called for a close follow-up appointment in the office and took down her information, patient is also to have return precautions which were discussed. Patient states understanding and agreement with plan. Stable and well-appearing at time of discharge. - Vital Signs Vital signs: Temp Pulse Resp BP Pulse Ox 98.6 F 88 20 137/97 H 99 08/18/19 23:18 08/18/19 23:18 08/18/19 23:18 08/18/19 23:18 08/18/19 23:18 - Laboratory Result Diagrams: 08/18/19 20:40 08/18/19 20:40 Laboratory results interpreted by me: 08/18/19 08/18/19 08/18/19 20:40 20:40 22:25 Hgb 11.4 L Hct 34.0 L MCV 75 L MCH 25.0 L RDW 17.4 H Sodium 136.5 L Glucose 313 H Total Protein 6.2 L Albumin 3.4 L Urine Glucose (UA) >=500 H Urine Ascorbic Acid 20 H Discharge - Discharge Clinical Impression: Post-op pain Condition: Stable Disposition: HOME, SELF-CARE Additional Instructions: We have blood cultures pending, you will be contacted for any concerning results. I spoke with Dr. Latif, on-call for Dr. Sincere abraham, they will contact you about being seen in close follow-up in the office for additional management. You can take Tylenol for pain, up to 1000 mg every 6 hours. You can ice the area of the upper shoulder. Return if you worsen including developing or spreading redness, severe worsening pain, vomiting, spiking fevers, or any other concerning or worsening symptoms. Referrals: HAYDEE ADAM MD [HONORARY] - Follow up as needed
[2019-08-19 01:49] VITALS: BP 154/100
== END 2019-08-19 01:48 | disposition home or self-care (01) ==
LOC: ER 19:41
DX: G89.18 Other acute postprocedural pain (principal); I48.91 Unspecified atrial fibrillation; I50.9 Heart failure, unspecified; E78.00 Pure hypercholesterolemia, unspecified; I11.0 Hypertensive heart disease with heart failure; J44.9 Chronic obstructive pulmonary disease, unspecified; E11.9 Type 2 diabetes mellitus without complications; Z88.0 Allergy status to penicillin; Z95.810 Presence of automatic (implantable) cardiac defibrillator
CPT/HCPCS: 99283; 36415; 87040; 85025; 80053; 81001; 71045; J3490

== ENCOUNTER 2019-08-22 17:36 | Emergency (ER) | payer MEDICAID ==
--- NOTE | 2019-08-22 18:13 | ER Document Report ---
ED General - General Chief Complaint: Chest Pain Stated Complaint: CHEST PRESSURE Time Seen by Provider: 08/22/19 18:09 Primary Care Provider: FRANCINE PRESSLEY NP [Primary Care Provider] - Follow up as needed Mode of Arrival: Medic Information source: Patient TRAVEL OUTSIDE OF THE [place] IN LAST 30 DAYS: No - HPI Onset: Just prior to arrival Onset/Duration: Sudden Quality of pain: Pressure Severity: Moderate Pain Level: 3 Associated symptoms: Shortness of breath, Other - swelling of legs Exacerbated by: Denies Relieved by: Denies Similar symptoms previously: Yes Recently seen / treated by doctor: Yes - patient had an AICD placed at [facility] last week Notes: 38 year old female with a history of CAD, COPD on 3L of O2, HTN, HLD, DM, AFib, CHF, Anxiety, Depression who just had an AICD placed at [facility] last week here in the ER for chest pain/pressure, mild shortness of breath, and leg swelling which started about an hour prior to ER arrival. The patient says she also feels slightly nauseated but she denies fevers, chills, sweats, cough. The patient denies her AICD firing. The patient has followed up with [facility] since having her AICD placed and they have seen no evidence of post operative complications. - Related Data Allergies/Adverse Reactions: amoxicillin [Amoxicillin] Allergy (Severe, Verified 08/22/19 17:47) Anaphylaxis Penicillins Allergy (Severe, Verified 08/22/19 17:47) Anaphylaxis Bees/Wasp Allergy (Severe, Uncoded 03/07/19 21:09) Anaphylaxis Past Medical History - General Information source: Patient - Social History Smoking Status: Current Every Day Smoker Chew tobacco use (# tins/day): No Frequency of alcohol use: None Drug Abuse: None Family History: Reviewed & Not Pertinent, CAD, DM, Hypertension, Malignancy Patient has homicidal ideation: No - Past Medical History Cardiac Medical History: Reports: Hx Atrial Fibrillation, Hx Congestive Heart Failure, Hx Hypercholesterolemia, Hx Hypertension Denies: Hx Coronary Artery Disease, Hx Heart Attack Pulmonary Medical History: Reports: Hx Asthma, Hx Bronchitis, Hx COPD, Hx Pneumonia, Hx Respiratory Failure - chronic: on 3 L/min of oxygen per nasal cannula, continuously. Neurological Medical History: Denies: Hx Cerebrovascular Accident, Hx Seizures Endocrine Medical History: Reports: Hx Diabetes Mellitus Type 2 - insulin dependent. Denies: Hx Diabetes Mellitus Type 1, Hx Hyperthyroidism, Hx Hypothyroidism Renal/ Medical History: Reports: Hx Kidney Stones. Denies: Hx Peritoneal Dialysis GI Medical History: Denies: Hx Cirrhosis, Hx Crohn's Disease, Hx Hepatitis, Hx Ulcerative Colitis Musculoskeletal Medical History: Denies Hx Arthritis, Denies Hx Fibromyalgia Skin Medical History: Denies Hx Eczema, Denies Hx Psoriasis Psychiatric Medical History: Reports: Hx Anxiety, Hx Bipolar Disorder, Hx Depression Infectious Medical History: Denies: Hx Hepatitis Past Surgical History: Reports: Hx Abdominal Surgery - hernia, Hx Cardiac Catheterization, Hx Cholecystectomy, Hx Herniorrhaphy, Hx Umbilical Hernia - Immunizations Immunizations up to date: No Hx Diphtheria, Pertussis, Tetanus Vaccination: Yes Hx Pneumococcal Vaccination: 11/12/17 Review of Systems - Review of Systems Constitutional: No symptoms reported EENT: No symptoms reported Cardiovascular: Chest pain Respiratory: Short of breath Physical Exam - Vital signs Vitals: Pulse Ox 100 08/22/19 17:37 - Notes Notes: GENERAL: Well-appearing, well-nourished and in no acute distress. HEAD: Atraumatic, normocephalic. EYES: Pupils equal round and reactive to light, extraocular movements intact, sclera anicteric, conjunctiva are normal. ENT: External ears normal, nares patent, oropharynx clear without exudates. Moist mucous membranes. NECK: Normal range of motion, supple without lymphadenopathy or JVD. LUNGS: Breath sounds clear to auscultation bilaterally and equal. No wheezes rales or rhonchi. HEART: Regular rate and rhythm without murmurs, rubs or gallops. ABDOMEN: Soft, nontender, normoactive bowel sounds. No guarding, no rebound. No masses appreciated. EXTREMITIES: Mild edema of both legs to mid shins. Normal range of motion, no pitting or edema. No clubbing or cyanosis. NEUROLOGICAL: Cranial nerves II through XII grossly intact. Normal speech, normal gait. PSYCH: Normal mood, normal affect. SKIN: Victoria pacemaker surgical site on chest with no erythema, warmth, sw elling or drainage. Warm, Dry, normal turgor, no rashes or lesions noted. Course - Re-evaluation Re-evalutation: 08/22/19 21:36 The patient is here for chest pain which started shortly before ER arrival. The patient just had an AICD placed placed last week. Patient's initial Trop was baseline for her (slightly elevated). Patient had a repeat Trop which showed no signficant rise. Patient also complaining of worsening leg edema and her BNP was 1540 which is somewhat elevated for her. Patient takes 20mg lasix daily. She was therefore given 40mg IV here in the ER and she was told to increase her lasix dose to 40mg from 20mg daily for the next few days. I consulted Dr. Kimble of Cardiology since the patient's Pickling Drum Operator Dr. Arreola is not available. Dr. Kimble agrees the plan for outpatient follow up. Patient's chest pain seems atypical in nature. Patient also just had an AICD placed and most of her pain is ove this surgical site. - Vital Signs Vital signs: Temp Pulse Resp BP Pulse Ox 98.3 F 16 164/122 H 99 08/22/19 17:48 08/22/19 20:40 08/22/19 21:01 08/22/19 21:01 - Laboratory Result Diagrams: 08/22/19 18:18 08/22/19 18:18 Laboratory results interpreted by me: 08/22/19 08/22/19 08/22/19 18:18 18:18 18:18 WBC 12.0 H Hgb 11.2 L Hct 34.6 L MCV 75 L MCH 24.3 L RDW 16.7 H Absolute Neuts (auto) 8.9 H Sodium 135.9 L Glucose 172 H NT-Pro-B Natriuret Pep 1540 H Total Protein 6.2 L - Diagnostic Test Radiology reviewed: Image reviewed, Reports reviewed - EKG Interpretation by Tx EKG shows normal: Sinus rhythm, Rowdy, Intervals, QRS Complexes, ST-T Waves Rate: Normal Rhythm: NSR Discharge - Discharge Clinical Impression: Chest pain Qualifiers: Chest pain type: unspecified Qualified Code(s): R07.9 - Chest pain, unspecified Heart failure Qualifiers: Heart failure type: unspecified Heart failure chronicity: acute on chronic Qualified Code(s): I50.9 - Heart failure, unspecified Condition: Stable Disposition: HOME, SELF-CARE Additional Instructions: Increase your Lasix dose to 40mg daily from 20mg daily for the next 3 days to help get more fluid off your legs. Follow up with your Pickling Drum Operator in the next few days. You had blood work, a chest xray, and an EKG in the ER today where were all reassuring. Return to an ER for persistent chest pain, persistent trouble breathing, or if worse in any way. Referrals: FRANCINE PRESSLEY NP [Primary Care Provider] - Follow up as needed WICHO ARREOLA MD [ACTIVE PROVISIONAL STAFF] - Follow up as needed
[2019-08-22 18:30] LABS: ABSOLUTE BASOPHILS # (AUTO) 0.1 10^3/uL (0.0-0.2); ABSOLUTE EOSINOPHILS # (AUTO) 0.2 10^3/uL (0.0-0.6); ABSOLUTE LYMPHOCYTES (AUTO) 2.1 10^3/uL (0.5-4.7); ABSOLUTE MONOCYTES (AUTO) 0.7 10^3/uL (0.1-1.4); ABSOLUTE NEUT (AUTO) 8.9 10^3/uL (1.7-8.2); BASOPHILS % (AUTO) 0.6 % (0-2); EOSINOPHILS % (AUTO) 1.8 % (0-6); HEMATOCRIT 34.6 % (36.0-47.0); HEMOGLOBIN 11.2 g/dL (12.0-15.5); LYMPHOCYTES % (AUTO) 17.2 % (13-45); MEAN CORPUSCULAR HEMOGLOBIN 24.3 pg (27.0-33.4); MEAN CORPUSCULAR HGB CONC 32.3 g/dL (32.0-36.0); MEAN CORPUSCULAR VOLUME 75 fl (80-97); MONOCYTES % (AUTO) 5.7 % (3-13); PLATELET COUNT 229 10^3/uL (150-450); RED CELL DISTRIBUTION WIDTH 16.7 % (11.5-14.0); SEGMENTED NEUTROPHILS % (AUTO) 74.7 % (42-78); TOTAL CELLS COUNTED % (AUTO) 100 %
[2019-08-22 18:47] LABS: ALBUMIN 3.6 g/dL (3.5-5.0); ALKALINE PHOSPHATASE 58 U/L (38-126); ANION GAP 6 (5-19); ASPARTATE AMINO TRANSFERASE 18 U/L (14-36); BILIRUBIN,TOTAL 0.5 mg/dL (0.2-1.3); BLOOD UREA NITROGEN 8 mg/dL (7-20); CALCIUM 8.5 mg/dL (8.4-10.2); CARBON DIOXIDE 27 mmol/L (22-30); CHLORIDE 103 mmol/L (98-107); CREATINE KINASE 127 U/L (30-135); GLUCOSE 172 mg/dL (75-110); POTASSIUM 3.8 mmol/L (3.6-5.0); TOTAL PROTEIN 6.2 g/dL (6.3-8.2)
[2019-08-22 18:58] LABS: CREATINE KINASE MB 1.23 ng/mL (<4.55)
--- NOTE | 2019-08-22 19:00 | RADIOLOGY REPORT (SQ) ---
EXAM DESCRIPTION: CHEST SINGLE VIEW IMAGES COMPLETED DATE/TIME: 08/22/2019 6:43 pm REASON FOR STUDY: chest pain COMPARISON: 08/18/2019 EXAM PARAMETERS: NUMBER OF VIEWS: One view. TECHNIQUE: Single frontal radiographic view of the chest acquired. RADIATION DOSE: NA LIMITATIONS: None. FINDINGS: LUNGS AND PLEURA: Low lung volumes. No infiltrate, effusion, or mass. MEDIASTINUM AND HILAR STRUCTURES: No masses. Contour normal. HEART AND VASCULAR STRUCTURES: Heart size is borderline, likely accentuated by low lung volumes. BONES: No acute findings. HARDWARE: Pacemaker/defibrillator. OTHER: No other significant finding. IMPRESSION: Borderline heart size. No pulmonary edema. TECHNICAL DOCUMENTATION: JOB ID: [id number] 2010 [employer]- All Rights Reserved Reading location - IP/workstation name: [email or web address]
[2019-08-22] MEDS ORDERED: ONDANSETRON HCL INJ/PF 4 MG/2 ML SDV IV ONE (19:01)
[2019-08-22 19:40] LABS: TROPONIN I 0.055 ng/mL
[2019-08-22] MEDS ORDERED: NAPROXEN 250 MG TABLET PO ONE (20:15)
[2019-08-22] MEDS ORDERED: ACETAMINOPHEN 325 MG TABLET PO ONE (21:19)
[2019-08-22] MEDS ORDERED: FUROSEMIDE INJ/PF 20 MG/2 ML SDV IV ONE (21:28)
[2019-08-22 22:56] VITALS: BP 159/105
--- NOTE | 2019-08-23 08:01 | EKG REPORT ---
SEVERITY:- BORDERLINE ECG - SINUS TACHYCARDIA BORDERLINE T WAVE ABNORMALITIES : Confirmed by: Heaven Marshall MD 23-Aug-2019 08:00:36
== END 2019-08-22 22:58 | disposition home or self-care (01) ==
LOC: ER 17:36
DX: R07.89 Other chest pain (principal); I11.0 Hypertensive heart disease with heart failure; I50.9 Heart failure, unspecified; J44.9 Chronic obstructive pulmonary disease, unspecified; J96.10 Chronic respiratory failure, unspecified whether with hypoxia or hypercapnia; Z99.81 Dependence on supplemental oxygen; R11.0 Nausea; I25.10 Atherosclerotic heart disease of native coronary artery without angina pectoris; I10 Essential (primary) hypertension; E11.9 Type 2 diabetes mellitus without complications; F17.200 Nicotine dependence, unspecified, uncomplicated; Z95.810 Presence of automatic (implantable) cardiac defibrillator; Z87.892 Personal history of anaphylaxis; Z88.0 Allergy status to penicillin; Z91.030 Bee allergy status; Z91.038 Other insect allergy status; Z79.899 Other long term (current) drug therapy
CPT/HCPCS: 93005; 99285; 96374; 96375; 36415; 82553; 82550; 85025; 80053; 84484; 83880; 71045; 93010; J3490 ×2; J1940; J2405

== ENCOUNTER 2019-09-06 08:52 | Inpatient (IN) | payer MEDICAID ==
[2019-09-06] MEDS ORDERED: FUROSEMIDE INJ/PF 40 MG/4 ML SDV IV ONE (09:04)
[2019-09-06] MEDS ORDERED: IPRATROPIUM/ALBUTEROL 0.5-2.5 MG/3 ML AMPUL NEB ONE (09:13)
[2019-09-06 09:49] LABS: ABSOLUTE BASOPHILS # (AUTO) 0.1 10^3/uL (0.0-0.2); ABSOLUTE EOSINOPHILS # (AUTO) 0.3 10^3/uL (0.0-0.6); ABSOLUTE LYMPHOCYTES (AUTO) 1.7 10^3/uL (0.5-4.7); ABSOLUTE MONOCYTES (AUTO) 0.6 10^3/uL (0.1-1.4); ABSOLUTE NEUT (AUTO) 9.6 10^3/uL (1.7-8.2); BASOPHILS % (AUTO) 0.7 % (0-2); EOSINOPHILS % (AUTO) 2.1 % (0-6); HEMATOCRIT 37.3 % (36.0-47.0); HEMOGLOBIN 11.8 g/dL (12.0-15.5); LYMPHOCYTES % (AUTO) 14.2 % (13-45); MEAN CORPUSCULAR HEMOGLOBIN 24.3 pg (27.0-33.4); MEAN CORPUSCULAR HGB CONC 31.8 g/dL (32.0-36.0); MEAN CORPUSCULAR VOLUME 76 fl (80-97); PLATELET COUNT 220 10^3/uL (150-450); RED BLOOD COUNT 4.88 10^6/uL (3.72-5.28); RED CELL DISTRIBUTION WIDTH 17.2 % (11.5-14.0); TOTAL CELLS COUNTED % (AUTO) 100 %; WHITE BLOOD COUNT 12.2 10^3/uL (4.0-10.5)
[2019-09-06 10:12] LABS: ALBUMIN 3.7 g/dL (3.5-5.0); ALKALINE PHOSPHATASE 59 U/L (38-126); ANION GAP 8 (5-19); ASPARTATE AMINO TRANSFERASE 20 U/L (14-36); BILIRUBIN,TOTAL 0.7 mg/dL (0.2-1.3); BLOOD UREA NITROGEN 13 mg/dL (7-20); CALCIUM 8.6 mg/dL (8.4-10.2); CARBON DIOXIDE 23 mmol/L (22-30); CHLORIDE 104 mmol/L (98-107); CREATINE KINASE 110 U/L (30-135); GLUCOSE 235 mg/dL (75-110); TOTAL PROTEIN 6.6 g/dL (6.3-8.2)
[2019-09-06 10:29] LABS: TROPONIN I 0.051 ng/mL
[2019-09-06] MEDS: MAGNESIUM SULFATE/D5W 1 GM/100 ML RTUPB IV SCH ×2 (10:31→11:40)
--- NOTE | 2019-09-06 10:42 | RADIOLOGY REPORT (SQ) ---
EXAM DESCRIPTION: CHEST SINGLE VIEW IMAGES COMPLETED DATE/TIME: 09/06/2019 9:56 am REASON FOR STUDY: Dyspnea, CHF COMPARISON: 08/22/2019 EXAM PARAMETERS: NUMBER OF VIEWS: One view. TECHNIQUE: Single frontal radiographic view of the chest acquired. RADIATION DOSE: NA LIMITATIONS: None. FINDINGS: LUNGS AND PLEURA: Multifocal hazy opacification is seen of the right lung parenchyma. The left lung appears clear. No pleural effusion. No pneumothorax. MEDIASTINUM AND HILAR STRUCTURES: No masses. Contour normal. HEART AND VASCULAR STRUCTURES: Heart normal in size. Normal vasculature. BONES: No acute findings. HARDWARE: Transvenous pacer. OTHER: No other significant finding. IMPRESSION: Given unilaterality of findings, favor multi lobar pneumonia. TECHNICAL DOCUMENTATION: JOB ID: [id number] 2010 [employer]- All Rights Reserved Reading location - IP/workstation name: [email or web address]
[2019-09-06] MEDS ORDERED: LEVOFLOXACIN 750 MG/D5W RTU 750 MG/150 ML RTUPB IV ONE (11:05)
[2019-09-06] MEDS ORDERED: HYDRALAZINE HCL INJ/PF 20 MG/1 ML SDV IV ONE (11:17)
[2019-09-06 11:42] LABS: APPEARANCE,URINE CLEAR; BILIRUBIN,URINE NEGATIVE (NEGATIVE); COLOR,URINE STRAW; GLUCOSE, URINE 150 mg/dL (NEGATIVE); KETONES,URINE NEGATIVE (NEGATIVE); LEUKOCYTE ESTERASE,URINE NEGATIVE (NEGATIVE); NITRITE,URINE NEGATIVE (NEGATIVE); PROTEIN,URINE NEGATIVE (NEGATIVE); URINE SPECIFIC GRAVITY 1.008; UROBILINOGEN,URINE NEGATIVE mg/dL (<2.0)
--- NOTE | 2019-09-06 12:36 | ER Document Report ---
Entered by FATUMA MAR SCRIBE 09/06/19 0904 Acting as scribe for:DIAMANTE VICK MD ED Respiratory Problem - General Chief Complaint: Respiratory Distress Stated Complaint: RESPIRATORY DISTRESS Time Seen by Provider: 09/06/19 08:57 Mode of Arrival: Medic Information source: Patient, Emergency Med Personnel, [facility] Records Notes: 38-year-old female patient brought via EMS after waking up at 7:45 AM this morning with shortness of breath. Patient has long history of congestive heart failure with an EF of 30%. She has history of COPD, diabetes type 2 on insulin, A. fib, hypertension, GERD. Bipolar depression. Patient does report that she has had increasing swelling to her lower extremities recently. EMS reports initial blood pressure 220/120, patient was placed on nitroglycerin drip and CPAP. When seen in the emergency room, she has been changed over to BiPAP. She states that her breathing feels better with that. TRAVEL OUTSIDE OF THE [place] IN LAST 30 DAYS: No - Related Data Allergies/Adverse Reactions: amoxicillin [Amoxicillin] Allergy (Severe, Verified 08/22/19 17:47) Anaphylaxis Penicillins Allergy (Severe, Verified 08/22/19 17:47) Anaphylaxis Bees/Wasp Allergy (Severe, Uncoded 03/07/19 21:09) Anaphylaxis Past Medical History - General Information source: Patient, Emergency Med Personnel, [facility] Records - Social History Smoking Status: Current Every Day Smoker Cigarette use (# per day): Yes Chew tobacco use (# tins/day): No Smoking Education Provided: No Frequency of alcohol use: None Drug Abuse: None Lives with: Family Family History: Reviewed & Not Pertinent, CAD, DM, Hypertension, Malignancy - Past Medical History Cardiac Medical History: Reports: Hx Atrial Fibrillation, Hx Congestive Heart Failure, Hx Hypercholesterolemia, Hx Hypertension Denies: Hx Coronary Artery Disease, Hx Heart Attack Pulmonary Medical History: Reports: Hx Asthma, Hx Bronchitis, Hx COPD, Hx Pneumonia, Hx Respiratory Failure - chronic: on 3 L/min of oxygen per nasal cannula, continuously. Neurological Medical History: Denies: Hx Cerebrovascular Accident, Hx Seizures Endocrine Medical History: Reports: Hx Diabetes Mellitus Type 2 - insulin dependent. Denies: Hx Diabetes Mellitus Type 1, Hx Hyperthyroidism, Hx Hypothyroidism Renal/ Medical History: Reports: Hx Kidney Stones. Denies: Hx Peritoneal Dialysis GI Medical History: Denies: Hx Cirrhosis, Hx Crohn's Disease, Hx Hepatitis, Hx Ulcerative Colitis Musculoskeletal Medical History: Denies Hx Arthritis, Denies Hx Fibromyalgia Skin Medical History: Denies Hx Eczema, Denies Hx Psoriasis Psychiatric Medical History: Reports: Hx Anxiety, Hx Bipolar Disorder, Hx Depression Infectious Medical History: Denies: Hx Hepatitis Past Surgical History: Reports: Hx Abdominal Surgery - hernia, Hx Cardiac Catheterization, Hx Cholecystectomy, Hx Herniorrhaphy, Hx Umbilical Hernia - Immunizations Immunizations up to date: No Hx Diphtheria, Pertussis, Tetanus Vaccination: Yes Hx Pneumococcal Vaccination: 11/12/17 Review of Systems - Review of Systems Constitutional: No symptoms reported EENT: No symptoms reported Cardiovascular: No symptoms reported Respiratory: See HPI, Short of breath Gastrointestinal: No symptoms reported Genitourinary: No symptoms reported Female Genitourinary: No symptoms reported Musculoskeletal: No symptoms reported Skin: No symptoms reported Hematologic/Lymphatic: No symptoms reported Neurological/Psychological: No symptoms reported -: Yes All other systems reviewed and negative Physical Exam - Vital signs Vitals: Temp 98.5 F 09/06/19 08:52 Course - Re-evaluation Re-evalutation: 09/06/19 11:18 The patient is doing well on BiPAP. Chest x-ray does show a right lower lobe infiltrate. She had been given Lasix earlier because of the lower extremity edema and a history of CHF. She is urinating now. Her blood pressure has remained in the 1 40-1 50 systolic range while she is here on nitroglycerin drip. She will be given an IV dose of hydralazine 20 mg, and stop the nitroglycerin drip. - Vital Signs Vital signs: Temp Pulse Resp BP Pulse Ox 98.5 F 0 L 139/84 H 100 09/06/19 08:52 09/06/19 14:01 09/06/19 14:16 09/06/19 14:16 - Laboratory Result Diagrams: 09/06/19 09:30 09/06/19 09:30 Laboratory results interpreted by me: 09/06/19 09/06/19 09/06/19 09:30 09:30 09:30 WBC 12.2 H Hgb 11.8 L MCV 76 L MCH 24.3 L MCHC 31.8 L RDW 17.2 H Absolute Neuts (auto) 9.6 H Sodium 135.2 L Glucose 235 H NT-Pro-B Natriuret Pep 1050 H Urine Glucose (UA) 09/06/19 11:11 WBC Hgb MCV MCH MCHC RDW Absolute Neuts (auto) Sodium Glucose NT-Pro-B Natriuret Pep Urine Glucose (UA) 150 H - Diagnostic Test Radiology reviewed: Image reviewed, Reports reviewed - Chest x-ray shows right lower lobe infiltrate. - EKG Interpretation by Me EKG shows normal: Sinus rhythm, [place], Intervals, QRS Complexes. abnormal: ST-T Waves - Nonspecific lateral T abnormalities Rate: Normal - 89 Rhythm: NSR P Waves: LAE When compared to previous EKG there are: No significant change - Consults Dr. Zimmerman Time consulted: 11:52 Consulted provider: will come to ER Critical Care Note - Critical Care Note Total time excluding time spent on procedures (mins): 35 Comments: At least 35 minutes spent evaluating patient, reviewing prior records, reviewing x-rays and lab work. Re-evaluations to see her response to treatments. Consultations with hospitalist for hospital admission. Discharge - Discharge Clinical Impression: Respiratory distress, Hypertensive urgency, Morbid obesity with BMI of 40.0- 44.9, adult, Diabetes mellitus type 2 in obese Pneumonia Qualifiers: Pneumonia type: due to unspecified organism Laterality: right Lung location: lower lobe of lung Qualified Code(s): J18.9 - Pneumonia, unspecified organism COPD (chronic obstructive pulmonary disease) Qualifiers: COPD type: unspecified COPD Qualified Code(s): J44.9 - Chronic obstructive pulmonary disease, unspecified Condition: Fair Disposition: ADMITTED INPATIENT Admitting Provider: Erasmo (Hospitalist) Unit Admitted: IMCU I personally performed the services described in the documentation, reviewed and edited the documentation which was dictated to the scribe in my presence, and it accurately records my words and actions.
--- NOTE | 2019-09-06 14:04 | PDOC H&P ---
History of Present Illness Admission Date/PCP: 09/06/19 13:20 FRANCINE PRESSLEY NP History of Present Illness: DAYTON MENDOZA is a 38 year old female with a history of multiple medical problems including probable systolic congestive heart failure with reduced ejection fraction because she is on Entresto, cardiac arrhythmia of some etiology with recent placement of a pacemaker earlier this month, insulin- dependent diabetes mellitus, hypertension, morbid obesity, and chronic hypoxemic respiratory failure on 3 L of oxygen chronically, who presents today with a chief complaint of shortness of breath. She said it started this morning when she woke up. When she went to bed last night she felt fine. She lives at home with her niece and she said her boyfriend comes over some but other than that she does not leave the house unless she is going to a doctor's appointment. Not been around anyone that she knows to be sick or that has had any symptoms of any sort of illness that she knows. Is not running a fever. No abdominal pain, nausea, vomiting, or diarrhea. No dysuria. No flank pain. No productive cough. Her saturations were good on her usual 3 L in the ER but apparently she was having some trouble with her breathing and so they put her empirically on some BiPAP. Her breath sounds were excellent and her saturations were 100% but she was breathing very fast and was very anxious and wants she sat up and was told to consciously force herself to calm down her breathing slowed down. She had a chest x-ray suggestive of a multifocal pneumonia on the right side. Her BNP is elevated but it is chronically elevated and it is actually better than it was when she was here a couple weeks ago. Past Medical History Cardiac Medical History: Reports: Atrial Fibrillation, Congestive Heart Failure, Hyperlipidema, Hypertension Denies: Coronary Artery Disease, Myocardial Infarction Pulmonary Medical History: Reports: Asthma, Bronchitis, Chronic Obstructive Pulmonary Disease (COPD), Pneumonia, Respiratory Failure - chronic: on 3 L/min of oxygen per nasal cannula, continuously. Neurological Medical History: Denies: Seizures Endocrine Medical History: Reports: Diabetes Mellitus Type 2 - insulin dependent Denies: Diabetes Mellitus Type 1, Hyperthyroidism, Hypothyroidism GI Medical History: Denies: Cirrhosis, Crohn's Disease, Hepatitis, Ulcerative Colitis Musculoskeltal Medical History: Denies: Arthritis, Fibromyalgia Skin Medical History: Denies: Eczema, Psoriasis Psychiatric Medical History: Reports: Bipolar Disorder, Depression Hematology: Reports: Anemia Denies: Bleeding Tendencies Past Surgical History Past Surgical History: Reports: Cardiac Catheterization, Cholecystectomy, Herniorrhaphy Social History Smoking Status: Current Every Day Smoker Frequency of Alcohol Use: Occasional Hx Recreational Drug Use: No Drugs: None Hx Prescription Drug Abuse: No Family History Family History: Reviewed & Not Pertinent, CAD, DM, Hypertension, Malignancy Parental Family History Reviewed: Yes Children Family History Reviewed: NA Sibling(s) Family History Reviewed.: Yes Medication/Allergy Home Medications: Albuterol Sulfate [Proventil Hfa] 2 puff IH Q6HP PRN 12/22/18 Carvedilol [Coreg 6.25 mg Tablet] 6.25 mg PO Q12 12/22/18 Cyclobenzaprine HCl [Flexeril 10 mg Tablet] 10 mg PO TID 12/22/18 Furosemide [Lasix 20 mg Tablet] 20 mg PO DAILY 12/22/18 Glipizide [Glucotrol 10 mg Tablet] 10 mg PO BID 12/22/18 Isosorbide Mononitrate [Imdur 30 mg Tablet.er] 15 mg PO DAILY 12/22/18 Loratadine [Claritin 10 mg Tablet] 10 mg PO DAILY 12/22/18 Sacubitril/Valsartan [Entresto 49 mg/51 mg Tablet] 1 tab PO BID 12/22/18 Epinephrine 0.3 mg IM ASDIR PRN 09/06/19 Insulin Glargine,Hum.rec.anlog [Lantus Insulin 100 Unit/mL Insulin Pen] 65 unit SUBCUT QAM 09/06/19 Insulin Lispro [Humalog Kwikpen] 18 unit SQ MEALS 09/06/19 Metformin HCl 1,000 mg PO BID 09/06/19 Metoprolol Tartrate [Lopressor] 50 mg PO BID 09/06/19 Allergies/Adverse Reactions: amoxicillin [Amoxicillin] Allergy (Severe, Verified 08/22/19 17:47) Anaphylaxis Penicillins Allergy (Severe, Verified 08/22/19 17:47) Anaphylaxis Bees/Wasp Allergy (Severe, Uncoded 03/07/19 21:09) Anaphylaxis Review of Systems All systems: reviewed and no additional remarkable complaints except as stated - All systems were reviewed and were negative except as noted in the HPI Physical Exam Vital Signs: Temp Pulse Resp BP Pulse Ox 98.5 F 26 H 127/99 H 100 09/06/19 08:52 09/06/19 12:31 09/06/19 12:31 09/06/19 12:31 Intake & Output 09/05/19 09/06/19 09/07/19 06:59 06:59 06:59 Intake Total 200 Output Total 1000 Balance -800 Weight 146.964 kg General appearance: PRESENT: no acute distress - When I came into the room she was on BiPAP, laying on her right side looking comfortable and texting on her phone, cooperative, disheveled, morbidly obese Head exam: PRESENT: atraumatic, normocephalic Eye exam: PRESENT: EOMI, PERRLA. ABSENT: conjunctival injection, nystagmus, scleral icterus Ear exam: PRESENT: normal external ear exam Mouth exam: PRESENT: moist, neck supple Throat exam: PRESENT: other - BiPAP mask on Neck exam: PRESENT: full ROM. ABSENT: carotid bruit, JVD, lymphadenopathy, meningismus, tenderness, thyromegaly Respiratory exam: PRESENT: tachypnea, unlabored, other - Coarse breath sounds on the right. ABSENT: accessory muscle use, chest wall tenderness, crackles, decreased breath sounds, prolonged expiratory phas, rhonchi, symmetrical, wheezes Cardiovascular exam: PRESENT: RRR, +S1, +S2 Pulses: PRESENT: normal carotid pulses Vascular exam: PRESENT: normal capillary refill GI/Abdominal exam: PRESENT: normal bowel sounds, soft, other. ABSENT: distended, guarding, rebound, tenderness Extremities exam: ABSENT: pedal edema Musculoskeletal exam: PRESENT: normal inspection. ABSENT: deformity Neurological exam: PRESENT: alert, awake, oriented to person, oriented to place, oriented to situation, CN II-XII grossly intact. ABSENT: motor sensory deficit Psychiatric exam: PRESENT: anxious Skin exam: PRESENT: dry, warm Results Laboratory Results: 09/06/19 09:30 09/06/19 09:30 09/06/19 09/06/19 09/06/19 09:30 09:30 11:11 WBC 12.2 H RBC 4.88 Hgb 11.8 L Hct 37.3 MCV 76 L MCH 24.3 L MCHC 31.8 L RDW 17.2 H Plt Count 220 Seg Neutrophils % 78.0 Sodium 135.2 L Potassium 4.0 Chloride 104 Carbon Dioxide 23 Anion Gap 8 BUN 13 Creatinine 0.58 Est GFR ( Amer) > 60 Glucose 235 H Calcium 8.6 Magnesium 1.8 Total Bilirubin 0.7 AST 20 Alkaline Phosphatase 59 Total Protein 6.6 Albumin 3.7 Urine Color STRAW Urine Appearance CLEAR Urine pH 5.0 Ur Specific [place] 1.008 Urine Protein NEGATIVE Urine Glucose (UA) 150 H Urine Ketones NEGATIVE Urine Blood NEGATIVE Urine Nitrite NEGATIVE Ur Leukocyte Esterase NEGATIVE Urine WBC (Auto) 1 Urine RBC (Auto) 1 09/06/19 09/06/19 09:30 09:30 Creatine Kinase 110 Troponin I 0.051 NT-Pro-B Natriuret Pep 1050 H Impressions: Chest X-Ray 09/06/19 09:05 IMPRESSION: Given unilaterality of findings, favor multi lobar pneumonia. Assessment and Plan - Diagnosis (1) Multifocal pneumonia Is this a current diagnosis for this admission?: Yes Plan: Are going to test her for coronavirus in the ER. We will put her on Levaquin with some PRN nebulizer treatments and supplemental O2 as needed. (2) Chronic hypoxemic respiratory failure Is this a current diagnosis for this admission?: Yes Plan: She is usually on 3 L nasal cannula. I put her on BiPAP in the ER, presumably because she was displaying some trouble breathing or at least complaining of it. Her chest exam is fairly unremarkable, and she is moving really good air and her saturations were 100%. Once she was made to focus on calming down her breathing improved so I think a lot of this distress is anxiety. (3) Hypertensive urgency Is this a current diagnosis for this admission?: Yes Plan: This is resolved. Her blood pressures came down in the ER. She did not take her medications this morning so we will make sure that she gets doses of her morning medications. (4) Morbid obesity with BMI of 40.0-44.9, adult Is this a current diagnosis for this admission?: Yes Plan: Strongly encourage lifestyle and activity modification (5) Respiratory distress Is this a current diagnosis for this admission?: Yes Plan: I think a lot of this is from anxiety as previously noted. We will keep BiPAP available on an as needed basis. (6) Atrial fibrillation Qualifiers: Atrial fibrillation type: paroxysmal Qualified Code(s): I48.0 - Paroxysmal atrial fibrillation Is this a current diagnosis for this admission?: Yes Plan: She was in a sinus rhythm on the monitor but she had a pacemaker put in the first of this month in [place]. (7) Congestive heart failure Qualifiers: Heart failure type: unspecified Heart failure chronicity: chronic Qualified Code(s): I50.9 - Heart failure, unspecified Is this a current diagnosis for this admission?: Yes Plan: I am assuming that this is systolic CHF at least with a reduced ejection fraction, because she is on Entresto. We will try to get her records at [facility]. She had a cardiac catheterization done here over a year ago and at that time had a low normal ejection fraction. We will continue her beta- tracee and her nitrate. She is also on Lasix once a day which will be resumed. She does not appear to be exacerbated at this time. (8) Insulin dependent type 2 diabetes mellitus, uncontrolled Is this a current diagnosis for this admission?: Yes Plan: We will continue her home insulin regimen with a diabetic diet. (9) TAMEKA (obstructive sleep apnea) Is this a current diagnosis for this admission?: Yes Plan: We will make sure that she has BiPAP at night when she sleeps. - Time Time Spent with patient: 35 or more minutes - Inpatient Certification Based on my medical assessment, after consideration of the patient's comorbidities, presenting symptoms, or acuity I expect that the services needed warrant INPATIENT care.: Yes I certify that my determination is in accordance with my understanding of Medicare's requirements for reasonable and necessary INPATIENT services [42 CFR 412.3e].: Yes Medical Necessity: Significant Comorbidiites Make Outpatient Treatment Too Risky, Need Close Monitoring Due to Risk of Patient Decompensation, Need For Continuous Telemetry Monitoring, Need for Nebulizer Therapy and Monitoring of Response, Need for IV Antibiotics, Risk of Complication if Not Cared For in Hospital
[2019-09-06] MEDS: ISOSORBIDE MONONITRATE 30 MG TAB.ER.24H PO SCH (16:18)
[2019-09-06] MEDS: METFORMIN HCL 500 MG TABLET PO SCH (16:18)
[2019-09-06] MEDS: CARVEDILOL 6.25 MG TABLET PO SCH ×2 (16:18→21:12)
[2019-09-06] MEDS: HEPARIN SOD (PORCINE) 5,000 UNIT/ML 1 ML VIAL SUBCUT SCH ×2 (16:19→21:13)
[2019-09-06] MEDS: INSULIN LISPRO 100 UNIT/ML 3 ML VIAL SUBCUT SCH (16:25)
[2019-09-06] MEDS ORDERED: INSULIN LISPRO 18 UNIT SQ SCH (17:00)
[2019-09-06] MEDS: SACUBITRIL/VALSARTAN 49 MG/51 MG TABLET PO SCH (17:15)
[2019-09-06] MEDS ORDERED: ACETAMINOPHEN 325 MG TABLET ONE (17:22)
[2019-09-06] MEDS ORDERED: (PENDING PHARMACY ID) (Metformin Hcl [Metformin Hcl] 1,000 MG) PO SCH (18:00)
[2019-09-06] MEDS ORDERED: ACETAMINOPHEN 325 MG TABLET PO PRN (19:32)
[2019-09-06] MEDS: IPRATROPIUM/ALBUTEROL 0.5-2.5 MG/3 ML AMPUL NEB PRN (20:41)
[2019-09-06] MEDS: BUTALB/ACETAMINOPHEN/CAFFEINE 1 TAB EACH PO PRN (21:13)
[2019-09-07] MEDS: IPRATROPIUM/ALBUTEROL 0.5-2.5 MG/3 ML AMPUL NEB PRN ×3 (06:11→22:13)
[2019-09-07] MEDS: HEPARIN SOD (PORCINE) 5,000 UNIT/ML 1 ML VIAL SUBCUT SCH ×3 (06:11→21:50)
[2019-09-07 06:41] LABS: ANION GAP 6 (5-19); BLOOD UREA NITROGEN 10 mg/dL (7-20); CALCIUM 8.3 mg/dL (8.4-10.2); CARBON DIOXIDE 26 mmol/L (22-30); CHLORIDE 104 mmol/L (98-107); GLUCOSE 187 mg/dL (75-110); POTASSIUM 3.8 mmol/L (3.6-5.0)
[2019-09-07 07:18] LABS: HEMATOCRIT 34.6 % (36.0-47.0); HEMOGLOBIN 11.5 g/dL (12.0-15.5); MEAN CORPUSCULAR HEMOGLOBIN 24.8 pg (27.0-33.4); MEAN CORPUSCULAR HGB CONC 33.1 g/dL (32.0-36.0); MEAN CORPUSCULAR VOLUME 75 fl (80-97); PLATELET COUNT 207 10^3/uL (150-450); RED BLOOD COUNT 4.62 10^6/uL (3.72-5.28); RED CELL DISTRIBUTION WIDTH 17.3 % (11.5-14.0); WHITE BLOOD COUNT 9.2 10^3/uL (4.0-10.5)
[2019-09-07] MEDS: INSULIN GLARGINE,HUM.REC.ANLOG 1,000 UNIT/10 ML VIAL SUBCUT SCH (07:35)
[2019-09-07] MEDS: INSULIN LISPRO 100 UNIT/ML 3 ML VIAL SUBCUT SCH ×3 (07:36→17:00)
[2019-09-07] MEDS: METFORMIN HCL 500 MG TABLET PO SCH ×2 (07:36→16:59)
[2019-09-07] MEDS: ISOSORBIDE MONONITRATE 30 MG TAB.ER.24H PO SCH (10:46)
[2019-09-07] MEDS: CARVEDILOL 6.25 MG TABLET PO SCH ×2 (10:47→21:49)
[2019-09-07] MEDS: SACUBITRIL/VALSARTAN 49 MG/51 MG TABLET PO SCH ×2 (10:47→16:59)
[2019-09-07] MEDS: LEVOFLOXACIN 750 MG/D5W RTU 750 MG/150 ML RTUPB IV SCH (10:47)
[2019-09-07] MEDS: FUROSEMIDE 20 MG TABLET PO SCH (10:47)
[2019-09-07] MEDS ORDERED: FLUCONAZOLE 100 MG TABLET PO ONE (11:00)
--- NOTE | 2019-09-07 15:02 | PDOC PROGRESS REPORT ---
Subjective Progress Note for:: 09/07/19 Subjective:: No adverse events overnight. No new complaints. She is off BiPAP and back on the 3 L she is normally on at home. No fevers. She has been sleeping comfortably. Appetite is excellent. Reason For Visit: MULTIFOCAL PNEUMONIA Physical Exam Vital Signs: Temp Pulse Resp BP Pulse Ox 98.2 F 88 21 H 142/95 H 97 09/07/19 11:08 09/07/19 14:00 09/07/19 12:35 09/07/19 11:08 09/07/19 12:35 Intake & Output 09/06/19 09/07/19 09/08/19 06:59 06:59 06:59 Intake Total 662 846 Output Total 1000 Balance -338 846 Weight 148.2 kg General appearance: PRESENT: no acute distress, cooperative, disheveled, morbidly obese Respiratory exam: PRESENT: clear to auscultation russell, symmetrical, unlabored. ABSENT: accessory muscle use, chest wall tenderness, crackles, prolonged expiratory phas, rhonchi, tachypnea, wheezes Cardiovascular exam: PRESENT: RRR, +S1, +S2 Pulses: PRESENT: normal carotid pulses Vascular exam: PRESENT: normal capillary refill GI/Abdominal exam: PRESENT: normal bowel sounds, soft. ABSENT: distended, guarding, rebound, tenderness Extremities exam: ABSENT: clubbing, pedal edema Musculoskeletal exam: PRESENT: normal inspection. ABSENT: deformity Neurological exam: PRESENT: alert, awake, oriented to person, oriented to place, oriented to situation Psychiatric exam: PRESENT: flat affect Skin exam: PRESENT: dry, warm Results Laboratory Results: 09/07/19 05:50 09/07/19 05:50 09/07/19 09/07/19 05:50 05:50 WBC 9.2 RBC 4.62 Hgb 11.5 L Hct 34.6 L MCV 75 L MCH 24.8 L MCHC 33.1 RDW 17.3 H Plt Count 207 Sodium 135.6 L Potassium 3.8 Chloride 104 Carbon Dioxide 26 Anion Gap 6 BUN 10 Creatinine 0.54 Est GFR ( Amer) > 60 Glucose 187 H Calcium 8.3 L Magnesium 2.0 09/06/19 09/06/19 09:30 09:30 Creatine Kinase 110 Troponin I 0.051 NT-Pro-B Natriuret Pep 1050 H Impressions: Chest X-Ray 09/06/19 09:05 IMPRESSION: Given unilaterality of findings, favor multi lobar pneumonia. Assessment and Plan - Diagnosis (1) Multifocal pneumonia Is this a current diagnosis for this admission?: Yes Plan: Doing well on Levaquin. Cultures are pending. Coronavirus test is still pending. Anticipate discharge home tomorrow. (2) Chronic hypoxemic respiratory failure Is this a current diagnosis for this admission?: Yes Plan: Stable on her usual 3 L per nasal cannula (3) Hypertensive urgency Is this a current diagnosis for this admission?: Yes Plan: Resolved. Blood pressures improved. Back on her home medication. (4) Morbid obesity with BMI of 40.0-44.9, adult Is this a current diagnosis for this admission?: Yes Plan: Strongly encourage lifestyle and activity modification (5) Respiratory distress Is this a current diagnosis for this admission?: Yes Plan: Resolved (6) Atrial fibrillation Qualifiers: Atrial fibrillation type: paroxysmal Qualified Code(s): I48.0 - Paroxysmal atrial fibrillation Is this a current diagnosis for this admission?: Yes Plan: Resolved. Currently in sinus rhythm. (7) Congestive heart failure Qualifiers: Heart failure type: unspecified Heart failure chronicity: chronic Qualified Code(s): I50.9 - Heart failure, unspecified Is this a current diagnosis for this admission?: Yes Plan: I am assuming that this is systolic CHF at least with a reduced ejection fraction, because she is on Entresto. We will try to get her records at [facility]. She had a cardiac catheterization done here over a year ago and at that time had a low normal ejection fraction. We will continue her beta- tracee and her nitrate. She is also on Lasix once a day. Not acutely exacerbated. (8) Insulin dependent type 2 diabetes mellitus, uncontrolled Is this a current diagnosis for this admission?: Yes Plan: We will continue her home insulin regimen with a diabetic diet. (9) TAMEKA (obstructive sleep apnea) Is this a current diagnosis for this admission?: Yes Plan: We will make sure that she has BiPAP at night when she sleeps. - Time Time Spent with patient: 25-34 minutes
[2019-09-07] MEDS: BUTALB/ACETAMINOPHEN/CAFFEINE 1 TAB EACH PO PRN (16:59)
--- NOTE | 2019-09-07 19:26 | EKG REPORT ---
SEVERITY:- ABNORMAL ECG - SINUS RHYTHM PROBABLE LEFT ATRIAL ABNORMALITY ABNORMAL Q SUGGESTS ANTERIOR INFARCT NONSPECIFIC T ABNORMALITIES, LATERAL LEADS : Confirmed by: Tan Mobley 07-Sep-2019 19:24:50
[2019-09-08] MEDS ORDERED: ONDANSETRON HCL INJ/PF 4 MG/2 ML SDV ONE (03:01)
[2019-09-08] MEDS ORDERED: ONDANSETRON HCL INJ/PF 4 MG/2 ML SDV IV PRN (03:04)
[2019-09-08] MEDS ORDERED: ONDANSETRON 4 MG TAB.RAPDIS ONE (03:05)
[2019-09-08] MEDS ORDERED: ONDANSETRON 4 MG TAB.RAPDIS PO PRN (03:22)
[2019-09-08] MEDS ORDERED: GUAIFENESIN SYRP 200 MG/10 ML UDC PO PRN (03:52)
[2019-09-08] MEDS: HEPARIN SOD (PORCINE) 5,000 UNIT/ML 1 ML VIAL SUBCUT SCH ×2 (05:27→13:09)
[2019-09-08 06:19] LABS: HEMATOCRIT 34.4 % (36.0-47.0); HEMOGLOBIN 11.3 g/dL (12.0-15.5); MEAN CORPUSCULAR HEMOGLOBIN 24.7 pg (27.0-33.4); MEAN CORPUSCULAR HGB CONC 32.9 g/dL (32.0-36.0); MEAN CORPUSCULAR VOLUME 75 fl (80-97); PLATELET COUNT 198 10^3/uL (150-450); RED BLOOD COUNT 4.58 10^6/uL (3.72-5.28); RED CELL DISTRIBUTION WIDTH 17.5 % (11.5-14.0); WHITE BLOOD COUNT 10.6 10^3/uL (4.0-10.5)
[2019-09-08 06:36] LABS: ANION GAP 7 (5-19); BLOOD UREA NITROGEN 10 mg/dL (7-20); CALCIUM 8.5 mg/dL (8.4-10.2); CARBON DIOXIDE 24 mmol/L (22-30); CHLORIDE 104 mmol/L (98-107); GLUCOSE 160 mg/dL (75-110); POTASSIUM 3.7 mmol/L (3.6-5.0)
[2019-09-08] MEDS: IPRATROPIUM/ALBUTEROL 0.5-2.5 MG/3 ML AMPUL NEB PRN (08:27)
[2019-09-08] MEDS ORDERED: INSULIN GLARGINE,HUM.REC.ANLOG 1,000 UNIT/10 ML VIAL (PYX) SUBCUT ONE (08:39)
[2019-09-08] MEDS: INSULIN LISPRO 100 UNIT/ML 3 ML VIAL SUBCUT SCH ×2 (08:50→12:11)
[2019-09-08] MEDS: METFORMIN HCL 500 MG TABLET PO SCH (08:51)
[2019-09-08] MEDS: INSULIN GLARGINE,HUM.REC.ANLOG 1,000 UNIT/10 ML VIAL SUBCUT SCH (08:51)
[2019-09-08] MEDS: ISOSORBIDE MONONITRATE 30 MG TAB.ER.24H PO SCH (09:15)
[2019-09-08] MEDS: FUROSEMIDE 20 MG TABLET PO SCH (09:16)
[2019-09-08] MEDS: CARVEDILOL 6.25 MG TABLET PO SCH (09:16)
[2019-09-08] MEDS: LEVOFLOXACIN 750 MG/D5W RTU 750 MG/150 ML RTUPB IV SCH (09:17)
[2019-09-08] MEDS: SACUBITRIL/VALSARTAN 49 MG/51 MG TABLET PO SCH (09:17)
[2019-09-08 12:31] VITALS: BP 118/79
--- NOTE | 2019-09-08 13:03 | PDOC DISCHARGE SUMMARY ---
Impression - Admit/DC Date/PCP Admission Date/Primary Care Provider: 09/06/19 13:20 FRANCINE PRESSLEY NP Discharge Date: 09/08/19 - Discharge Diagnosis (1) Multifocal pneumonia Is this a current diagnosis for this admission?: Yes (2) Chronic hypoxemic respiratory failure Is this a current diagnosis for this admission?: Yes (3) Hypertensive urgency Is this a current diagnosis for this admission?: Yes (4) Morbid obesity with BMI of 40.0-44.9, adult Is this a current diagnosis for this admission?: Yes (5) Respiratory distress Is this a current diagnosis for this admission?: Yes (6) Atrial fibrillation Is this a current diagnosis for this admission?: Yes (7) Congestive heart failure Is this a current diagnosis for this admission?: Yes (8) Insulin dependent type 2 diabetes mellitus, uncontrolled Is this a current diagnosis for this admission?: Yes (9) TAMEKA (obstructive sleep apnea) Is this a current diagnosis for this admission?: Yes - Additional Information Resuscitation Status: Full Code Discharge Diet: Cardiac, Diabetic Discharge Activity: Activity As Tolerated, Balance Activity w/Rest, Weigh Daily Referrals: FRANCINE PRESSLEY NP [Primary Care Provider] - Follow up as needed Prescriptions: Levofloxacin [Levaquin 750 mg Tablet] 750 mg PO DAILY #5 tablet Home Medications: Albuterol Sulfate [Proventil Hfa] 2 puff IH Q6HP PRN 12/22/18 Carvedilol [Coreg 6.25 mg Tablet] 6.25 mg PO Q12 12/22/18 Cyclobenzaprine HCl [Flexeril 10 mg Tablet] 10 mg PO TID 12/22/18 Furosemide [Lasix 20 mg Tablet] 20 mg PO DAILY 12/22/18 Glipizide [Glucotrol 10 mg Tablet] 10 mg PO BID 12/22/18 Isosorbide Mononitrate [Imdur 30 mg Tablet.er] 15 mg PO DAILY 12/22/18 Loratadine [Claritin 10 mg Tablet] 10 mg PO DAILY 12/22/18 Sacubitril/Valsartan [Entresto 49 mg/51 mg Tablet] 1 tab PO BID 12/22/18 Epinephrine 0.3 mg IM ASDIR PRN 09/06/19 Insulin Glargine,Hum.rec.anlog [Lantus Insulin 100 Unit/mL Insulin Pen] 65 unit SUBCUT QAM 09/06/19 Insulin Lispro [Humalog Kwikpen U-100] 18 unit SQ MEALS 09/06/19 Metformin HCl 1,000 mg PO BID 09/06/19 Levofloxacin [Levaquin 750 mg Tablet] 750 mg PO DAILY #5 tablet 09/08/19 History of Present Illiness History of Present Illness: DAYTON MENDOZA is a 38 year old female with a history of multiple medical problems including probable systolic congestive heart failure with reduced ejection fraction because she is on Entresto, cardiac arrhythmia of some etiology with recent placement of a pacemaker earlier this month, insulin- dependent diabetes mellitus, hypertension, morbid obesity, and chronic hypoxemic respiratory failure on 3 L of oxygen chronically, who presents today with a chief complaint of shortness of breath. She said it started this morning when she woke up. When she went to bed last night she felt fine. She lives at home with her niece and she said her boyfriend comes over some but other than that she does not leave the house unless she is going to a doctor's appointment. Not been around anyone that she knows to be sick or that has had any symptoms of any sort of illness that she knows. Is not running a fever. No abdominal pain, nausea, vomiting, or diarrhea. No dysuria. No flank pain. No productive cough. Her saturations were good on her usual 3 L in the ER but apparently she was having some trouble with her breathing and so they put her empirically on some BiPAP. Her breath sounds were excellent and her saturations were 100% but she was breathing very fast and was very anxious and wants she sat up and was told to consciously force herself to calm down her breathing slowed down. She had a chest x-ray suggestive of a multifocal pneumonia on the right side. Her BNP is elevated but it is chronically elevated and it is actually better than it was when she was here a couple weeks ago. Hospital Course Hospital Course: She improved fairly quickly on antibiotics. She remained afebrile. She was back on her usual 3 L by the end of her first hospital day. Her comorbid conditions were managed by her home medications and were not acutely exacerbated during this hospitalization. I think most of her shortness of breath when she first presented was due to anxiety because her oxygenation were good and her breath sounds were very good. She will complete a course of Levaquin at home and resume her home medications. Her labs and examination were reassuring and she was discharged in stable condition. Physical Exam Vital Signs: Temp Pulse Resp BP Pulse Ox 98.9 F 86 17 118/79 98 09/08/19 11:41 09/08/19 11:41 09/08/19 11:41 09/08/19 11:41 09/08/19 11:41 Intake & Output 09/07/19 09/08/19 09/09/19 06:59 06:59 06:59 Intake Total 662 1566 615 Output Total 1000 400 Balance -338 1566 215 Weight 148.2 kg 149.3 kg General appearance: PRESENT: no acute distress, cooperative, disheveled, morbidly obese Respiratory exam: PRESENT: clear to auscultation russell, symmetrical, unlabored. ABSENT: accessory muscle use, chest wall tenderness, crackles, prolonged expiratory phas, rhonchi, tachypnea, wheezes Cardiovascular exam: PRESENT: RRR, +S1, +S2 Pulses: PRESENT: normal carotid pulses Vascular exam: PRESENT: normal capillary refill GI/Abdominal exam: PRESENT: normal bowel sounds, soft. ABSENT: distended, guarding, rebound, tenderness Extremities exam: ABSENT: clubbing, pedal edema Musculoskeletal exam: PRESENT: normal inspection. ABSENT: deformity Neurological exam: PRESENT: alert, awake, oriented to person, oriented to place, oriented to situation Psychiatric exam: PRESENT: flat affect Skin exam: PRESENT: dry, warm Results Laboratory Results: WBC 10.6 10^3/uL (4.0-10.5) H 09/08/19 05:59 RBC 4.58 10^6/uL (3.72-5.28) 09/08/19 05:59 Hgb 11.3 g/dL (12.0-15.5) L 09/08/19 05:59 Hct 34.4 % (36.0-47.0) L 09/08/19 05:59 MCV 75 fl (80-97) L 09/08/19 05:59 MCH 24.7 pg (27.0-33.4) L 09/08/19 05:59 MCHC 32.9 g/dL (32.0-36.0) 09/08/19 05:59 RDW 17.5 % (11.5-14.0) H 09/08/19 05:59 Plt Count 198 10^3/uL (150-450) 09/08/19 05:59 Lymph % (Auto) 14.2 % (13-45) 09/06/19 09:30 [place] % (Auto) 5.0 % (3-13) 09/06/19 09:30 Eos % (Auto) 2.1 % (0-6) 09/06/19 09:30 Baso % (Auto) 0.7 % (0-2) 09/06/19 09:30 Absolute Neuts (auto) 9.6 10^3/uL (1.7-8.2) H 09/06/19 09:30 Absolute Lymphs (auto) 1.7 10^3/uL (0.5-4.7) 09/06/19 09:30 Absolute Monos (auto) 0.6 10^3/uL (0.1-1.4) 09/06/19 09:30 Absolute Eos (auto) 0.3 10^3/uL (0.0-0.6) 09/06/19 09:30 Absolute Basos (auto) 0.1 10^3/uL (0.0-0.2) 09/06/19 09:30 Seg Neutrophils % 78.0 % (42-78) 09/06/19 09:30 Sodium 134.5 mmol/L (137-145) L 09/08/19 05:59 Potassium 3.7 mmol/L (3.6-5.0) 09/08/19 05:59 Chloride 104 mmol/L (98-107) 09/08/19 05:59 Carbon Dioxide 24 mmol/L (22-30) 09/08/19 05:59 Anion Gap 7 (5-19) 09/08/19 05:59 BUN 10 mg/dL (7-20) 09/08/19 05:59 Creatinine 0.59 mg/dL (0.52-1.25) 09/08/19 05:59 Est GFR ( Amer) > 60 (>60) 09/08/19 05:59 Est GFR (MDRD) Non-Af > 60 (>60) 09/08/19 05:59 Glucose 160 mg/dL (75-110) H 09/08/19 05:59 POC Glucose 162 mg/dL (70-110) H 09/08/19 11:44 Calcium 8.5 mg/dL (8.4-10.2) 09/08/19 05:59 Magnesium 2.0 mg/dL (1.6-2.3) 09/07/19 05:50 Total Bilirubin 0.7 mg/dL (0.2-1.3) 09/06/19 09:30 Direct Bilirubin 0.0 mg/dL (0.0-0.4) 09/06/19 09:30 Neonat Total Bilirubin Not Reportable 09/06/19 09:30 Neonat Direct Bilirubin Not Reportable 09/06/19 09:30 Neonat Indirect Bili Not Reportable 09/06/19 09:30 AST 20 U/L (14-36) 09/06/19 09:30 ALT 14 U/L (<35) 09/06/19 09:30 Alkaline Phosphatase 59 U/L (38-126) 09/06/19 09:30 Creatine Kinase 110 U/L (30-135) 09/06/19 09:30 Troponin I 0.051 ng/mL 09/06/19 09:30 NT-Pro-B Natriuret Pep 1050 pg/mL (<125) H 09/06/19 09:30 Total Protein 6.6 g/dL (6.3-8.2) 09/06/19 09:30 Albumin 3.7 g/dL (3.5-5.0) 09/06/19 09:30 Urine Color STRAW 09/06/19 11:11 Urine Appearance CLEAR 09/06/19 11:11 Urine pH 5.0 (5.0-9.0) 09/06/19 11:11 Ur Specific [place] 1.008 09/06/19 11:11 Urine Protein NEGATIVE mg/dL (NEGATIVE) 09/06/19 11:11 Urine Glucose (UA) 150 mg/dL (NEGATIVE) H 09/06/19 11:11 Urine Ketones NEGATIVE mg/dL (NEGATIVE) 09/06/19 11:11 Urine Blood NEGATIVE (NEGATIVE) 09/06/19 11:11 Urine Nitrite NEGATIVE (NEGATIVE) 09/06/19 11:11 Urine Bilirubin NEGATIVE (NEGATIVE) 09/06/19 11:11 Urine Urobilinogen NEGATIVE mg/dL (<2.0) 09/06/19 11:11 Ur Leukocyte Esterase NEGATIVE (NEGATIVE) 09/06/19 11:11 Urine WBC (Auto) 1 /HPF 09/06/19 11:11 Urine RBC (Auto) 1 /HPF 09/06/19 11:11 U Hyaline Cast (Auto) 1 /LPF 09/06/19 11:11 Urine Bacteria (Auto) 2+ /HPF 09/06/19 11:11 Squamous Epi Cells Auto 1 /HPF 09/06/19 11:11 Urine Mucus (Auto) RARE /LPF 09/06/19 11:11 Urine Ascorbic Acid NEGATIVE (NEGATIVE) 09/06/19 11:11 09/06/19 09:30 Troponin I 0.051 NT-Pro-B Natriuret Pep 1050 H Impressions: Chest X-Ray 09/06/19 09:05 IMPRESSION: Given unilaterality of findings, favor multi lobar pneumonia. Plan Time Spent: Greater than 30 Minutes Stroke Is this a Stroke Patient?: No Acute Heart Failure - Is this a Heart Failure Patient?: No
== END 2019-09-08 13:17 | disposition home or self-care (01) | DRG 194 ==
LOC: ER 08:52 → EH 13:20 → 3N 14:54
PROVIDERS: ADMIT Family Medicine; ATTEND Family Medicine
PROC: 5A09457 Assistance with Respiratory Ventilation, 24-96 Consecutive Hours, Continuous Positive Airway Pressure (ICD-10-PCS; principal; 2019-09-06)
DX: J18.9 Pneumonia, unspecified organism (principal); Z68.41 Body mass index [BMI] 40.0-44.9, adult; J44.0 Chronic obstructive pulmonary disease with (acute) lower respiratory infection; J96.11 Chronic respiratory failure with hypoxia; I50.22 Chronic systolic (congestive) heart failure; J44.9 Chronic obstructive pulmonary disease, unspecified; I11.0 Hypertensive heart disease with heart failure; I16.0 Hypertensive urgency; I48.0 Paroxysmal atrial fibrillation; E78.5 Hyperlipidemia, unspecified; F17.210 Nicotine dependence, cigarettes, uncomplicated; E11.65 Type 2 diabetes mellitus with hyperglycemia; F41.9 Anxiety disorder, unspecified; G47.33 Obstructive sleep apnea (adult) (pediatric); F31.9 Bipolar disorder, unspecified; Z20.828 Contact with and (suspected) exposure to other viral communicable diseases; E66.01 Morbid (severe) obesity due to excess calories; Z99.81 Dependence on supplemental oxygen; Z79.899 Other long term (current) drug therapy; Z95.0 Presence of cardiac pacemaker; Z79.4 Long term (current) use of insulin; Z90.49 Acquired absence of other specified parts of digestive tract; Z79.51 Long term (current) use of inhaled steroids; Z88.0 Allergy status to penicillin; Z91.030 Bee allergy status
CPT/HCPCS: 36415; 71045; 80048; 80053; 81001; 82550; 82962; 83735; 83880; 84484; 85025; 85027; 87040; 87635; 93005; 93010; 94640; 94660; 96365; 96366; 96368; 96375; 99291; C9803; J0360; J1644; J1815; J1940; J1956; J3475; J3490; J7620; S0119

== ENCOUNTER 2019-12-23 14:38 | Emergency (ER) | payer MEDICAID ==
[2019-12-23 15:20] LABS: ABSOLUTE BASOPHILS # (AUTO) 0.1 10^3/uL (0.0-0.2); ABSOLUTE EOSINOPHILS # (AUTO) 0.2 10^3/uL (0.0-0.6); ABSOLUTE LYMPHOCYTES (AUTO) 2.1 10^3/uL (0.5-4.7); ABSOLUTE MONOCYTES (AUTO) 0.6 10^3/uL (0.1-1.4); ABSOLUTE NEUT (AUTO) 6.5 10^3/uL (1.7-8.2); BASOPHILS % (AUTO) 1.4 % (0-2); EOSINOPHILS % (AUTO) 2.2 % (0-6); HEMATOCRIT 38.4 % (36.0-47.0); HEMOGLOBIN 12.8 g/dL (12.0-15.5); LYMPHOCYTES % (AUTO) 21.9 % (13-45); MEAN CORPUSCULAR HEMOGLOBIN 25.7 pg (27.0-33.4); MEAN CORPUSCULAR HGB CONC 33.4 g/dL (32.0-36.0); MEAN CORPUSCULAR VOLUME 77 fl (80-97); MONOCYTES % (AUTO) 6.4 % (3-13); PLATELET COUNT 209 10^3/uL (150-450); RED BLOOD COUNT 4.98 10^6/uL (3.72-5.28); SEGMENTED NEUTROPHILS % (AUTO) 68.1 % (42-78); TOTAL CELLS COUNTED % (AUTO) 100 %; WHITE BLOOD COUNT 9.5 10^3/uL (4.0-10.5)
--- NOTE | 2019-12-23 15:33 | RADIOLOGY REPORT (SQ) ---
EXAM DESCRIPTION: CHEST SINGLE VIEW IMAGES COMPLETED DATE/TIME: 12/23/2019 2:56 pm REASON FOR STUDY: chest pain COMPARISON: 09/06/2019 TECHNIQUE: Single frontal radiographic view of the chest acquired. NUMBER OF VIEWS: One view. LIMITATIONS: None. FINDINGS: LUNGS AND PLEURA: No pneumothorax. No consolidation or pleural effusion. MEDIASTINUM AND HILAR STRUCTURES: Stable. HEART AND VASCULAR STRUCTURES: Stable. BONES: No acute findings. HARDWARE: Cardiac defibrillator. OTHER: No other significant finding. IMPRESSION: NO ACUTE FINDINGS. TECHNICAL DOCUMENTATION: JOB ID: [id number] [place]-72 2010 [employer]- All Rights Reserved Reading location - IP/workstation name: [email or web address]
[2019-12-23 15:37] LABS: ALBUMIN 3.8 g/dL (3.5-5.0); ALKALINE PHOSPHATASE 68 U/L (38-126); ANION GAP 9 (5-19); ASPARTATE AMINO TRANSFERASE 20 U/L (14-36); BILIRUBIN,DIRECT 0.3 mg/dL (0.0-0.4); BILIRUBIN,TOTAL 0.6 mg/dL (0.2-1.3); BLOOD UREA NITROGEN 10 mg/dL (7-20); CALCIUM 8.9 mg/dL (8.4-10.2); CARBON DIOXIDE 25 mmol/L (22-30); CHLORIDE 105 mmol/L (98-107); CREATINE KINASE 165 U/L (30-135); GLUCOSE 257 mg/dL (75-110); POTASSIUM 4.4 mmol/L (3.6-5.0); TOTAL PROTEIN 6.6 g/dL (6.3-8.2)
[2019-12-23 15:48] LABS: CREATINE KINASE MB 1.7 ng/mL (<4.55)
[2019-12-23 15:50] LABS: TROPONIN I 0.059 ng/mL
[2019-12-23] MEDS ORDERED: MORPHINE SULFATE 10 MG/ML INJ IV ONE (16:52)
[2019-12-23] MEDS ORDERED: ONDANSETRON HCL INJ/PF 4 MG/2 ML SDV IV ONE (16:52)
--- NOTE | 2019-12-23 19:27 | RADIOLOGY REPORT (SQ) ---
EXAM DESCRIPTION: CTA CHEST IMAGES COMPLETED DATE/TIME: 12/23/2019 7:04 pm REASON FOR STUDY: CHEST PAIN LEFT SIDED COMPARISON: 06/14/2019 and 03/07/2019 TECHNIQUE: CT scan of the chest performed using helical scanning technique with dynamic intravenous contrast injection. Images reviewed with lung, soft tissue and bone windows. Reconstructed coronal and sagittal MPR images reviewed. Additional 3 dimensional post-processing performed to develop Maximal Intensity Projection images (TX P). All images stored on PACS. All CT scanners at this facility use dose modulation, iterative reconstruction, and/or weight based d osing when appropriate to reduce radiation dose to as low as reasonably achievable (ALARA). [facility]: Dose Right [facility]: CareDose [facility]: Dose Right [facility]: Teradose 4D [facility]: [facility] CONTRAST TYPE AND DOSE: contrast/concentration: Isovue 350.00 mmol/ml; Total Contrast Delivered: 75. 0 ml; Total Saline Delivered: 81.0 ml Contrast bolus optimized for the pulmonary arteries. Not diagnostic for the aorta. RENAL FUNCTION: None required. The patient is less than 50 years old. RADIATION DOSE: CT Rad equipment meets quality standard of care and radiation dose reduction techniq ues were employed. CTDIvol: 6.6 - 41.8 mGy. DLP: 1461 mGy-cm. . LIMITATIONS: None. FINDINGS: LUNGS AND PLEURA: No pneumothorax. No consolidation or pleural effusions. Mild diffuse interstitial thickening noted throughout the both lungs. AORTA AND GREAT VESSELS: No aneurysm. Contrast bolus not optimized for the aorta. HEART: No pericardial effusion. No significant coronary artery calcifications. PULMONARY ARTERIES: No emboli visualized in the main pulmonary arteries or the segmental branches. HILAR AND MEDIASTINAL STRUCTURES: Similar mediastinal and hilar enlarged nodes. HARDWARE: Cardiac defibrillator. UPPER ABDOMEN: No acute findings. Limited exam. THYROID AND OTHER SOFT TISSUES: No masses. No adenopathy. BONES: No acute finding. 3D MIPS: Confirm above findings. OTHER: No other significant finding. IMPRESSION: No emboli visualized in the main pulmonary arteries or the segmental branches.Mild diffu se interstitial thickening noted throughout the both lungs. Similar mediastinal and hilar enlarged no allen. COMMENT: Quality ID # [id number]: Final reports with documentation of one or more dose reduction techniques (e.g., Automated exposure control, adjustment of the mA and/or kV according to patient size, use of iterative reconstruction technique) TECHNICAL DOCUMENTATION: JOB ID: [id number] [place]-72 2010 [employer]- All Rights Reserved Reading location - IP/workstation name: [email or web address]
--- NOTE | 2019-12-23 19:54 | ER Document Report ---
Entered by INESSA ROBERTS SCRIBE 12/23/19 1511 Acting as scribe for:WHITNEY TABOR MD ED General - General Chief Complaint: Chest Pain Stated Complaint: CHEST PAIN Time Seen by Provider: 12/23/19 14:47 Primary Care Provider: FRANCINE PRESSLEY NP [Primary Care Provider] - Follow up as needed Mode of Arrival: Medic Information source: Patient Notes: This 39 year old female patient presents to the ED today via EMS with complaints of left-sided chest pain that started last night. Patient states that the pain was dull initially, but became worse and sharp in nature this morning. She reports that the pain is worse when lying down, sitting up, or breathing. She mentions a cough related to CHF and runny nose, but denies fever, sore throat, leg swelling, or known COVID exposure. Per nursing, patient had x2 nitro at home and received x1 nitro spray via EMS without relief. She is a current every day smoker. Patient has a past medical history of dilated cardiomyopathy, asthma/COPD on 3L O2 via NC at all times, CHF, atrial fibrillation, pulmonary embolism not currently on a blood thinner, type 2 diabetes, and hypertension. TRAVEL OUTSIDE OF THE [place] IN LAST 30 DAYS: No - Related Data Allergies/Adverse Reactions: amoxicillin [Amoxicillin] Allergy (Severe, Verified 12/23/19 15:16) Anaphylaxis Penicillins Allergy (Severe, Verified 12/23/19 15:16) Anaphylaxis Bees/Wasp Allergy (Severe, Uncoded 12/23/19 15:16) Anaphylaxis Past Medical History - General Information source: Patient, [facility] - Social History Smoking Status: Current Every Day Smoker Smoking Education Provided: No Family History: Reviewed & Not Pertinent, CAD, DM, Hypertension, Malignancy Patient has suicidal ideation: No Patient has homicidal ideation: No - Past Medical History Cardiac Medical History: Reports: Hx Atrial Fibrillation, Hx Congestive Heart Failure, Hx Hypercholesterolemia, Hx Hypertension Pulmonary Medical History: Reports: Hx Asthma, Hx Bronchitis, Hx COPD, Hx Pneumonia, Hx Respiratory Failure - chronic: on 3 L/min of oxygen per nasal cannula, continuously. Endocrine Medical History: Reports: Hx Diabetes Mellitus Type 2 - insulin dependent Renal/ Medical History: Reports: Hx Kidney Stones Psychiatric Medical History: Reports: Hx Anxiety, Hx Bipolar Disorder, Hx Depression Past Surgical History: Reports: Hx Cardiac Catheterization, Hx Cholecystectomy, Hx Herniorrhaphy, Hx Umbilical Hernia - Immunizations Immunizations up to date: No Hx Diphtheria, Pertussis, Tetanus Vaccination: Yes Hx Pneumococcal Vaccination: 11/12/17 Review of Systems - Review of Systems Constitutional: See HPI. denies: Fever EENT: See HPI, Nose discharge. denies: Throat pain Cardiovascular: See HPI, Chest pain Respiratory: See HPI, Cough Gastrointestinal: No symptoms reported Genitourinary: No symptoms reported Female Genitourinary: No symptoms reported Musculoskeletal: See HPI. denies: Leg swelling Skin: No symptoms reported Hematologic/Lymphatic: No symptoms reported Neurological/Psychological: No symptoms reported -: Yes All other systems reviewed and negative Physical Exam - Vital signs Vitals: Resp 18 12/23/19 14:53 - General General appearance: Alert In distress: None - HEENT Head: Normocephalic, Atraumatic Eyes: Normal Pupils: PERRL - Respiratory Respiratory status: No respiratory distress Chest status: Tender - Reproducible chest wall tenderness to palpation at the lower sternal border Breath sounds: Decreased air movement - Diminished breath sounds in the bases - Cardiovascular Rhythm: Regular Heart sounds: Normal auscultation, S1 appreciated, S2 appreciated Murmur: No Friction rub: No Gallop: None auscultated - Abdominal Inspection: Normal Distension: No distension Bowel sounds: Normal Tenderness: Nontender - Abdomen soft Organomegaly: No organomegaly - Back Back: Normal, Nontender - Extremities General upper extremity: Normal inspection General lower extremity: Normal inspection. No: Edema - Neurological Neuro grossly intact: Yes Orientation: AAOx4 Cassandra Coma Scale Eye Opening: Spontaneous Cassandra Coma Scale Verbal: Oriented Cassandra Coma Scale Motor: Obeys Commands Cassandra Coma Scale Total: 15 - Psychological Associated symptoms: Normal affect, Normal mood - Skin Skin Temperature: Warm Skin Moisture: Dry Skin Color: Normal Course - Re-evaluation Re-evalutation: 12/23/19 20:19 Patient continues to have chest wall pain reproducible when you push on the lower sternal breast plate as well as underneath the left breast lower rib cage margin. - Vital Signs Vital signs: Temp Pulse Resp BP Pulse Ox 98.5 F 0 L 162/105 H 99 12/23/19 15:15 12/23/19 18:00 12/23/19 17:01 12/23/19 18:00 See chart for documentation the patient's recent vital signs. - Laboratory Result Diagrams: 12/23/19 15:08 12/23/19 15:08 Laboratory results interpreted by me: 12/23/19 12/23/19 12/23/19 15:08 15:08 18:30 MCV 77 L MCH 25.7 L RDW 17.0 H Glucose 257 H Creatine Kinase 165 H NT-Pro-B Natriuret Pep 1230 H Abnormal laboratories show glucose of 257 and a BNP of 1230, and an elevated troponin at 0.059 and a repeat at 0.064. In reviewing patient's past medical history of laboratory abnormalities patient's BNP is been as high as 1630 when August 2019 and also her troponins are always elevated and there is low level range looking back over several years. - Diagnostic Test Radiology reviewed: Image reviewed, Reports reviewed Radiology results interpreted by me: 12/23/19 20:23 Chest X-Ray 12/23/19 14:39 IMPRESSION: NO ACUTE FINDINGS. Chest/Abdomen CTA 12/23/19 17:17 IMPRESSION: No emboli visualized in the main pulmonary arteries or the segmental branches.Mild diffuse interstitial thickening noted throughout the both lungs. Similar mediastinal and hilar enlarged nodes. Chest x-ray shows no acute findings no overt failure. CT angiogram of chest abdomen shows no visualized pulmonary arteries with emboli. Of note is mediastinal hilar and large nodes which have been present in the past. - EKG Interpretation by Me Additional EKG results interpreted by me: 12/23/19 20:24 Lead EKG shows a normal sinus rhythm rate of 93 nonspecific T wave L abnormalities in the lateral leads and an abnormal Q wave in the anterior region consistent with an old anterior infarct. This also can be seen in lead placement as well. Patient has a normal SC interval, normal QRS interval, normal QT interval. Patient has a normal axis. No acute STEMI noted. - Consults Dr. Arreola, [employer] Time consulted: 17:17 Reason for consultation: 12/23/19 20:[address] Arreola who knows patient very well and reported to me that patient had a normal clean coronary artery cardiac catheterization in May 30, 2018. Patient also has been followed up in the office as well as has an appointment for January 07 of which I instructed patient that per Dr. Arreola he no longer sees patient in the office and that she needs to change her appointment on the same day to [address] Trisro Discharge - Discharge Clinical Impression: Chest wall pain, Tobacco dependence, COPD (chronic obstructive pulmonary disease) Condition: Stable Disposition: HOME, SELF-CARE Instructions: Chest Wall Pain ([facility]) Additional Instructions: Chest Wall Pain Your chest pain has been diagnosed as coming from the chest wall. This is often caused by straining the muscles or joints in the chest during physical activity, direct trauma, coughing, or vigorous vomiting. Persons with arthritis are especially prone to this type of pain, due to inflammation of the cartilage joints near the breast bone. Occasionally, no cause can be found. Rest from strenuous physical activity. This kind of chest pain is usually made worse by movement of the chest. Depending on the symptoms, we may prescr bernardo medicine for pain, muscle relaxation, and antiinflammatory effects. If the pain is new, and seems to be due to muscle strain, cold packs can help. Otherwise, apply gentle warmth to the painful area for 15 minutes every hour or two. You should contact the doctor immediately if things change. Further evaluation is needed if you develop a fever or cough, if the nature of the pain changes, or if you become short of breath. Inasmuch as anti-inflammatory medications are often used for chest wall pain I recommend that you take Tylenol as opposed to any NSAID such as ibuprofen. My dose for you is Tylenol 1000 mg twice a day if needed for chest wall pain. Also you have an cardiology appointment on January [address] Arreola. Inasmuch as Dr. Arreola is no longer seen patient is in the office you need to call the cardiology office and requested your January 07 clinic visit should be switched over and changed to Dr. Cote. Forms: Elevated Blood Pressure Referrals: FRANCINE PRESSLEY LIBRARY AIDE [Primary Care Provider] - Follow up as needed I personally performed the services described in the documentation, reviewed and edited the documentation which was dictated to the scribe in my presence, and it accurately records my words and actions.
[2019-12-23] MEDS ORDERED: KETOROLAC TROMETHAMINE INJ/PF 30 MG/1 ML SDV IV ONE (20:18)
[2019-12-23 21:03] VITALS: BP 139/93
--- NOTE | 2019-12-23 23:09 | EKG REPORT ---
SEVERITY:- ABNORMAL ECG - SINUS RHYTHM ABNORMAL Q SUGGESTS OLD SEPTAL INFARCT NONSPECIFIC T ABNORMALITIES, LATERAL LEADS : Confirmed by: Heaven Marshall MD 23-Dec-2019 23:08:40
== END 2019-12-23 21:01 | disposition home or self-care (01) ==
LOC: ER 14:38
DX: R07.89 Other chest pain (principal); J44.9 Chronic obstructive pulmonary disease, unspecified; J96.10 Chronic respiratory failure, unspecified whether with hypoxia or hypercapnia; Z99.81 Dependence on supplemental oxygen; I11.0 Hypertensive heart disease with heart failure; I50.9 Heart failure, unspecified; I43 Cardiomyopathy in diseases classified elsewhere; F17.200 Nicotine dependence, unspecified, uncomplicated; R59.9 Enlarged lymph nodes, unspecified; R05 Cough; R09.89 Other specified symptoms and signs involving the circulatory and respiratory systems; E11.9 Type 2 diabetes mellitus without complications; Z87.892 Personal history of anaphylaxis; Z86.711 Personal history of pulmonary embolism; Z88.0 Allergy status to penicillin; Z91.030 Bee allergy status; Z91.038 Other insect allergy status
CPT/HCPCS: 93005; 99285; 96374; 96375; 36415; 82553; 82550; 85025; 80053; 84484; 83880; 71045; 71275; 93010; J1885; J2270; J2405

== ENCOUNTER 2020-01-01 23:49 | Emergency (ER) | payer MEDICAID ==
--- NOTE | 2020-01-02 00:32 | ER Document Report ---
ED General - General Chief Complaint: Shortness Of Breath Stated Complaint: SHORTNESS OF BREATH Time Seen by Provider: 01/02/20 00:30 Primary Care Provider: FRANCINE PRESSLEY NP [Primary Care Provider] - Follow up as needed TRAVEL OUTSIDE OF THE [place] IN LAST 30 DAYS: No - HPI Notes: 39-year-old female presents with shortness of breath. Patient states that around 11 PM this evening she had onset of chest heaviness and tightness, along with shortness of breath. She states that she did some home breathing treatments which did not change her shortness of breath. She states that she put her pulse ox on and it was 88%, she states that she turned up her oxygen and sats increased to 92%. States however she is afraid that her oxygen was going to keep dropping therefore called EMS. She states that she has had a cough and a runny nose today. She states that recently she had some lower leg swelling, she doubled her water pill and had improvement, she is now back to her usual 20 mg a day and denies leg swelling currently. She reports shortness of breath while walking which seems to be longstanding. She received 2 albuterol treatments and 125 mg Solu-Medrol via EMS. - Related Data Allergies/Adverse Reactions: amoxicillin [Amoxicillin] Allergy (Severe, Verified 01/02/20 00:39) Anaphylaxis Penicillins Allergy (Severe, Verified 01/02/20 00:39) Anaphylaxis Bees/Wasp Allergy (Severe, Uncoded 12/23/19 15:16) Anaphylaxis Past Medical History - General Information source: Patient - Social History Smoking Status: Unknown if Ever Smoked Family History: Reviewed & Not Pertinent, CAD, DM, Hypertension, Malignancy - Past Medical History Cardiac Medical History: Reports: Hx Atrial Fibrillation, Hx Congestive Heart Failure, Hx Hypercholesterolemia, Hx Hypertension Denies: Hx Coronary Artery Disease, Hx Heart Attack Pulmonary Medical History: Reports: Hx Asthma, Hx Bronchitis, Hx COPD, Hx Pneumonia, Hx Respiratory Failure - chronic: on 3 L/min of oxygen per nasal cannula, continuously. Neurological Medical History: Denies: Hx Cerebrovascular Accident, Hx Seizures Endocrine Medical History: Reports: Hx Diabetes Mellitus Type 2 - insulin dependent. Denies: Hx Diabetes Mellitus Type 1, Hx Hyperthyroidism, Hx Hypothyroidism Renal/ Medical History: Reports: Hx Kidney Stones. Denies: Hx Peritoneal Dialysis GI Medical History: Denies: Hx Cirrhosis, Hx Crohn's Disease, Hx Hepatitis, Hx Ulcerative Colitis Musculoskeletal Medical History: Denies Hx Arthritis, Denies Hx Fibromyalgia Skin Medical History: Denies Hx Eczema, Denies Hx Psoriasis Psychiatric Medical History: Reports: Hx Anxiety, Hx Bipolar Disorder, Hx Depression Infectious Medical History: Denies: Hx Hepatitis Past Surgical History: Reports: Hx Abdominal Surgery - hernia, Hx Cardiac Catheterization, Hx Cholecystectomy, Hx Herniorrhaphy, Hx Umbilical Hernia - Immunizations Immunizations up to date: No Hx Diphtheria, Pertussis, Tetanus Vaccination: Yes Hx Pneumococcal Vaccination: 11/12/17 Review of Systems - Review of Systems Constitutional: denies: Fever EENT: See HPI Cardiovascular: Chest pain Respiratory: Cough, Short of breath Gastrointestinal: denies: Abdominal pain, Diarrhea, Nausea, Vomiting Genitourinary: No symptoms reported Female Genitourinary: No symptoms reported Musculoskeletal: No symptoms reported Skin: No symptoms reported Hematologic/Lymphatic: No symptoms reported Neurological/Psychological: No symptoms reported Physical Exam - Vital signs Vitals: Pulse Ox 97 01/02/20 00:00 - General General appearance: Appears well, Alert In distress: None - HEENT Head: Normocephalic, Atraumatic Extraocular movements intact: Yes Pupils: PERRL - Respiratory Respiratory status: No respiratory distress Breath sounds: Normal Notes: Upon entry to the room, patient was talking on her cell phone with her mother, normal respiratory rate. She then ended the phone call and began to almost hyper ventilate, taking multiple shallow breaths. She was able to talk in full sentences, oxygen saturation 100% on 2L - Cardiovascular Rhythm: Regular Heart sounds: Normal auscultation - Abdominal Inspection: Morbidly Obese Tenderness: Nontender - Extremities General lower extremity: No: Edema - Neurological Neuro grossly intact: Yes Cognition: Normal Orientation: AAOx4 - Psychological Associated symptoms: Anxious - Skin Skin Temperature: Warm Course - Re-evaluation Re-evalutation: 39-year-old female history asthma versus COPD, CHF/CM, morbid obesity, hypertension here with shortness of breath onset about 1 hour prior to arrival to the emergency department. She received nebulized treatments and steroids via EMS. On exam she is not in any respiratory distress, she is 100% on 2 L, typically on 3 L. Her lungs are grossly clear, potentially some limitation in exam due to her body habitus. She does not have any peripheral edema. Suspect possibly acute asthma exacerbation may be with an anxiety component as well, however given her history will evaluate for evidence of a CHF exacerbation. Would not have suspicion for ACS at this time, EKG is nonischemic. Has a history of multiple pneumonias, chest x-ray evaluated to assess, CT if needed. Hold on further albuterol treatments as her lungs are currently clear. 01/02/20 02:38 Mild leukocytosis, within range of patient's previous values. Hemoglobin within range of previous values. Electrolytes okay. Creatinine within normal limits. BNP is elevated, higher than previous 2 values, however overall not the highest she has been. There is a mild elevation of troponin, also within range of previous values, suspect she has a chronic leak given her cardiomyopathy. Ordered 20 mg IV Lasix 01/02/20 02:38 Chest x-ray with mild edema 01/02/20 02:52 Patient reevaluated, she is resting comfortably in bed, breathing at a normal rate. I updated her on her work-up so far and plan to give Lasix and hopeful discharge home. She is in agreement with this plan. 01/02/20 05:28 Into reassess patient, she was initially sleeping in bed. No increased work of breathing and no hypoxia. She awoken easily. She states she is comfortable going home. I advised her to please double her Lasix dosing and to please call cardiology to discuss. Offered Covid swab, patient declined. Return precautions given, stable at time of discharge. - Vital Signs Vital signs: Temp Pulse Resp BP Pulse Ox 98.8 F 35 H 148/80 H 99 01/02/20 05:00 01/02/20 05:00 01/02/20 05:00 01/02/20 05:00 - Laboratory Result Diagrams: 01/02/20 00:23 01/02/20 00:23 Laboratory results interpreted by me: 01/02/20 01/02/20 01/02/20 00:23 00:23 00:23 WBC 13.3 H MCV 76 L MCH 25.4 L RDW 16.3 H Absolute Neuts (auto) 9.3 H Sodium 136.0 L Glucose 247 H Creatine Kinase 136 H NT-Pro-B Natriuret Pep 1480 H Urine Glucose (UA) Urine Urobilinogen Urine Ascorbic Acid 01/02/20 02:57 WBC MCV MCH RDW Absolute Neuts (auto) Sodium Glucose Creatine Kinase NT-Pro-B Natriuret Pep Urine Glucose (UA) >=500 H Urine Urobilinogen 2.0 H Urine Ascorbic Acid 20 H - Diagnostic Test Radiology reviewed: Image reviewed, Reports reviewed - EKG Interpretation by Me Additional EKG results interpreted by me: EKG is interpreted by me. Sinus rhythm, rate 93. Narrow QRS, QTC within normal limits. No ST segment elevation. Discharge - Discharge Clinical Impression: Acute on chronic systolic CHF (congestive heart failure) Disposition: HOME, SELF-CARE Additional Instructions: Please double your Lasix dosing and call your cheerleading coach this morning. Return to the emergency department for any concerning worsening symptoms. Referrals: FRANCINE PRESSLEY NP [Primary Care Provider] - Follow up as needed
[2020-01-02 00:52] LABS: ABSOLUTE BASOPHILS # (AUTO) 0.1 10^3/uL (0.0-0.2); ABSOLUTE EOSINOPHILS # (AUTO) 0.2 10^3/uL (0.0-0.6); ABSOLUTE MONOCYTES (AUTO) 0.7 10^3/uL (0.1-1.4); ABSOLUTE NEUT (AUTO) 9.3 10^3/uL (1.7-8.2); BASOPHILS % (AUTO) 0.5 % (0-2); EOSINOPHILS % (AUTO) 1.5 % (0-6); HEMATOCRIT 37.1 % (36.0-47.0); HEMOGLOBIN 12.3 g/dL (12.0-15.5); LYMPHOCYTES % (AUTO) 22.4 % (13-45); MEAN CORPUSCULAR HEMOGLOBIN 25.4 pg (27.0-33.4); MEAN CORPUSCULAR HGB CONC 33.3 g/dL (32.0-36.0); MEAN CORPUSCULAR VOLUME 76 fl (80-97); MONOCYTES % (AUTO) 5.5 % (3-13); PLATELET COUNT 202 10^3/uL (150-450); RED BLOOD COUNT 4.86 10^6/uL (3.72-5.28); RED CELL DISTRIBUTION WIDTH 16.3 % (11.5-14.0); SEGMENTED NEUTROPHILS % (AUTO) 70.1 % (42-78); TOTAL CELLS COUNTED % (AUTO) 100 %; WHITE BLOOD COUNT 13.3 10^3/uL (4.0-10.5)
[2020-01-02 01:01] LABS: ALBUMIN 3.6 g/dL (3.5-5.0); ALKALINE PHOSPHATASE 71 U/L (38-126); ANION GAP 9 (5-19); ASPARTATE AMINO TRANSFERASE 19 U/L (14-36); BILIRUBIN,DIRECT 0.3 mg/dL (0.0-0.4); BILIRUBIN,TOTAL 0.5 mg/dL (0.2-1.3); BLOOD UREA NITROGEN 13 mg/dL (7-20); CALCIUM 9.1 mg/dL (8.4-10.2); CARBON DIOXIDE 24 mmol/L (22-30); CHLORIDE 103 mmol/L (98-107); CREATINE KINASE 136 U/L (30-135); GLUCOSE 247 mg/dL (75-110); POTASSIUM 4.2 mmol/L (3.6-5.0); TOTAL PROTEIN 6.3 g/dL (6.3-8.2)
[2020-01-02 01:46] LABS: CREATINE KINASE MB 2.12 ng/mL (<4.55)
[2020-01-02 01:51] LABS: TROPONIN I 0.087 ng/mL
[2020-01-02] MEDS ORDERED: FUROSEMIDE INJ/PF 20 MG/2 ML SDV IV ONE (02:03)
--- NOTE | 2020-01-02 02:31 | RADIOLOGY REPORT (SQ) ---
EXAM: XR Chest, 1 View EXAM DATE/TIME: 01/02/2020 1:44 AM CLINICAL HISTORY: The patient is 39 years old and is Female; SOB TECHNIQUE: Frontal view of the chest. COMPARISON: Chest radiograph and chest CT from 12/23/2019 FINDINGS: LUNGS: There has been interval development of mild diffuse interstitial prominence. This is suspicious for mild interstitial edema. No focal consolidation. PLEURAL SPACE: Unremarkable. No pneumothorax. HEART: Stable mild enlargement of the cardiac silhouette. MEDIASTINUM: Unremarkable. BONES/JOINTS: No acute osseous findings. TUBES, LINES AND DEVICES: Left-sided dual-chamber pacemaker in place with leads unchanged in position. IMPRESSION: Mild diffuse interstitial prominence, suggesting mild interstitial edema.
[2020-01-02 04:04] LABS: APPEARANCE,URINE SLIGHTLY-CLOUDY; BILIRUBIN,URINE NEGATIVE (NEGATIVE); COLOR,URINE YELLOW; GLUCOSE, URINE >=500 mg/dL (NEGATIVE); KETONES,URINE NEGATIVE (NEGATIVE); LEUKOCYTE ESTERASE,URINE NEGATIVE (NEGATIVE); NITRITE,URINE NEGATIVE (NEGATIVE); PROTEIN,URINE NEGATIVE (NEGATIVE); URINE SPECIFIC GRAVITY 1.016
[2020-01-02 06:27] VITALS: BP 142/72
--- NOTE | 2020-01-02 16:25 | EKG REPORT ---
SEVERITY:- ABNORMAL ECG - SINUS RHYTHM ABNORMAL Q SUGGESTS ANTERIOR INFARCT BORDERLINE T WAVE ABNORMALITIES : Confirmed by: Shaji Kimble MD 02-Jan-2020 16:25:28
== END 2020-01-02 06:25 | disposition home or self-care (01) ==
LOC: ER 23:49
DX: I11.0 Hypertensive heart disease with heart failure (principal); I50.23 Acute on chronic systolic (congestive) heart failure; R06.02 Shortness of breath; R07.9 Chest pain, unspecified; R05 Cough; R09.89 Other specified symptoms and signs involving the circulatory and respiratory systems; M79.89 Other specified soft tissue disorders; Z88.0 Allergy status to penicillin; J44.9 Chronic obstructive pulmonary disease, unspecified; E11.9 Type 2 diabetes mellitus without complications; E66.01 Morbid (severe) obesity due to excess calories; Z79.4 Long term (current) use of insulin
CPT/HCPCS: 93005; 99285; 96374; 36415; 87040; 82553; 82550; 85025; 81025; 80053; 81001; 84484; 83880; 71045; 93010; J1940

== ENCOUNTER 2020-01-03 00:09 | Inpatient (IN) | payer MEDICAID ==
--- NOTE | 2020-01-03 00:39 | ER Document Report ---
ED Respiratory Problem - General Chief Complaint: Respiratory Distress Stated Complaint: RESPIRATORY DISTRESS Time Seen by Provider: 01/03/20 00:20 Primary Care Provider: FRANCINE PRESSLEY NP [Primary Care Provider] - Follow up as needed Mode of Arrival: Medic Information source: Patient Notes: LAST NIGHTS ER VISIT Per Dr. Baron.. Patient was seen on phone last night talking to mother but when seen by she began to be quite dramatic with increased shortness of breath. Patient has a history of dilated cardiomyopathy and is on Entresto with a BNP last night of 1400. She was given Lasix. She was sent home. Emergency Provider: MANNY BARON Date: 01/02/20 00:32 Initialization Date: 01/02/20 00:32 ED General - General Chief Complaint: Shortness Of Breath Stated Complaint: SHORTNESS OF BREATH Time Seen by Provider: 01/02/20 00:30 Primary Care Provider: FRANCINE PRESSLEY NP [Primary Care Provider] - Follow up as needed TRAVEL OUTSIDE OF THE [place] IN LAST 30 DAYS: No - HPI Notes: 39-year-old female presents with shortness of breath. Patient states that around 11 PM this evening she had onset of chest heaviness and tightness, along with shortness of breath. She states that she did some home breathing treatments which did not change her shortness of breath. She states that she put her pulse ox on and it was 88%, she states that she turned up her oxygen and sats increased to 92%. States however she is afraid that her oxygen was going to keep dropping therefore called EMS. She states that she has had a cough and a runny nose today. She states that recently she had some lower leg swelling, she doubled her water pill and had improvement, she is now back to her usual 20 mg a day and denies leg swelling currently. She reports shortness of breath while walking which seems to be longstanding. She received 2 albuterol treatments and 125 mg Solu-Medrol via EMS. 01/03/20 00:31 - ED [facility]: [id number] : 1980 Patient Age: 39 patient presents to ED via EMS for c/o respiratory distress. patient reports she was sitting at home watching TV when suddenly she could not breathe. patient reports she was seen here yesterday for acute HF and was discharged home with a new medication. upon arrival to ED patient brought to room 8, patient was on cpap from EMS then switched to bipap. patient noted to be tachypneic and tachycardic. patient has diminished lung sounds bilaterally. patient also reports some chest pain as well. EMS administered 2 Nitro sprays prior to arrival. patient also hypertensive. MY NOTES today 39-year-old female arrives by EMS with chief complaint of breathing more rapidly tonight. Patient reports she was had trouble breathing for 10 minutes prior to calling EMS. Patient has a history of hypertension CHF COPD diabetes pacemaker and has an allergy to penicillin amoxicillin. Patient reports she uses 3 L 24 hours O2. She reports her fianc who she lives with also smokes. She says she smokes 3 cigarettes/day and drinks occasionally wine. Patient's EKG upon arrival revealed sinus tachycardia and she was placed on CPAP prior to arrival by EMS with blood pressure 156/115 with pulse 124. She was 108 upon arrival. Patient reports she has a prior history of pulmonary emboli. TRAVEL OUTSIDE OF THE [place] IN LAST 30 DAYS: No - HPI Patient complains to provider of: Chest pain, CHF, COPD, Cough Onset: Just prior to arrival Severity: Mild Pain Level: 1 Context: Hx CHF, Hx COPD - Related Data Allergies/Adverse Reactions: amoxicillin [Amoxicillin] Allergy (Severe, Verified 01/02/20 00:39) Anaphylaxis Penicillins Allergy (Severe, Verified 01/02/20 00:39) Anaphylaxis Bees/Wasp Allergy (Severe, Uncoded 12/23/19 15:16) Anaphylaxis Past Medical History - General Information source: Patient - Social History Smoking Status: Current Every Day Smoker Cigarette use (# per day): Yes Chew tobacco use (# tins/day): No Smoking Education Provided: Yes Frequency of alcohol use: Occasional Drug Abuse: None Lives with: Family Family History: Reviewed & Not Pertinent, CAD, DM, Hypertension, Malignancy Patient has suicidal ideation: No Patient has homicidal ideation: No - Past Medical History Cardiac Medical History: Reports: Hx Atrial Fibrillation, Hx Congestive Heart Failure, Hx Hypercholesterolemia, Hx Hypertension Denies: Hx Coronary Artery Disease, Hx Heart Attack Pulmonary Medical History: Reports: Hx Asthma, Hx Bronchitis, Hx COPD, Hx Pneumonia, Hx Respiratory Failure - chronic: on 3 L/min of oxygen per nasal cannula, continuously. Neurological Medical History: Denies: Hx Cerebrovascular Accident, Hx Seizures Endocrine Medical History: Reports: Hx Diabetes Mellitus Type 2 - insulin dependent. Denies: Hx Diabetes Mellitus Type 1, Hx Hyperthyroidism, Hx Hypothyroidism Renal/ Medical History: Reports: Hx Kidney Stones. Denies: Hx Peritoneal Dialysis GI Medical History: Denies: Hx Cirrhosis, Hx Crohn's Disease, Hx Hepatitis, Hx Ulcerative Colitis Musculoskeletal Medical History: Denies Hx Arthritis, Denies Hx Fibromyalgia Skin Medical History: Denies Hx Eczema, Denies Hx Psoriasis Psychiatric Medical History: Reports: Hx Anxiety, Hx Bipolar Disorder, Hx Depression Infectious Medical History: Denies: Hx Hepatitis Past Surgical History: Reports: Hx Abdominal Surgery - hernia, Hx Cardiac Catheterization, Hx Cholecystectomy, Hx Herniorrhaphy, Hx Umbilical Hernia - Immunizations Immunizations up to date: No Hx Diphtheria, Pertussis, Tetanus Vaccination: Yes Hx Pneumococcal Vaccination: 11/12/17 Review of Systems - Review of Systems Constitutional: See HPI, Malaise, Weakness EENT: No symptoms reported Cardiovascular: No symptoms reported Respiratory: See HPI, Short of breath Gastrointestinal: No symptoms reported Genitourinary: No symptoms reported Female Genitourinary: No symptoms reported Musculoskeletal: No symptoms reported Skin: No symptoms reported Hematologic/Lymphatic: No symptoms reported Neurological/Psychological: No symptoms reported Physical Exam - Vital signs Vitals: Resp Pulse Ox 27 H 95 01/03/20 00:12 01/03/20 00:12 Interpretation: Normal, Tachycardic - General General appearance: Alert, Anxious, Other - Morbidly obese - HEENT Head: Normocephalic, Atraumatic Eyes: Normal Pupils: PERRL - Respiratory Respiratory status: Respiratory distress, Tachypnea Chest status: Tender - Substernal chest pain on palpation Breath sounds: Decreased air movement Chest palpation: Normal - Cardiovascular Rhythm: Tachycardia Heart sounds: Normal auscultation Murmur: No - Abdominal Inspection: Normal Distension: No distension Bowel sounds: Normal Tenderness: Nontender Organomegaly: No organomegaly - Rectal Hemorrhoids: Other - .rreddefe - Genitourinary Bimanuel exam: Other - deferred - Back Back: Normal, Nontender - Extremities General upper extremity: Normal inspection, Nontender, Normal color, Normal ROM, Normal temperature General lower extremity: Normal inspection, Nontender, Normal color, Normal ROM, Normal temperature, Normal weight bearing. No: Shawn's sign - Neurological Neuro grossly intact: Yes Cognition: Normal Orientation: AAOx4 Cassandra Coma Scale Eye Opening: Spontaneous Cassandra Coma Scale Verbal: Oriented [place] Coma Scale Motor: Obeys Commands [place] Coma Scale Total: 15 Speech: Normal Motor strength normal: LUE, RUE, LLE, RLE Sensory: Normal - Psychological Associated symptoms: Anxious - Follow-up with primary care provider for further evaluation. Continue home - Skin Skin Temperature: Warm Skin Moisture: Dry Skin Color: Normal Course - Vital Signs Vital signs: Temp Pulse Resp BP Pulse Ox 98.0 F 19 145/87 H 100 01/03/20 02:02 01/03/20 01:45 01/03/20 01:45 01/03/20 01:45 - Laboratory Result Diagrams: 01/03/20 00:18 01/03/20 00:18 Laboratory results interpreted by me: 01/03/20 01/03/20 01/03/20 00:18 00:18 00:18 WBC 14.5 H MCV 77 L MCH 25.7 L RDW 16.5 H Absolute Neuts (auto) 10.8 H APTT 36.8 H Sodium 136.8 L Glucose 318 H NT-Pro-B Natriuret Pep 01/03/20 00:18 WBC MCV MCH RDW Absolute Neuts (auto) APTT Sodium Glucose NT-Pro-B Natriuret Pep 2130 H - Diagnostic Test Radiology reviewed: Reports reviewed - Patient has groundglass opacities with consolidation lower lobes indicative of pulmonary edema versus pneumonia question of viral and also bilateral adenopathy hilar - EKG Interpretation by Me EKG shows normal: Sinus rhythm Rate: Tachycardia Rhythm: NSR - 108 heart rate beats per minute with ST elevation in inferior leads abnormal Q waves anterior and ventricular bigeminy and this was read by myself as well as the cardiology machine. Critical Care Note - Critical Care Note Comments: I spoke with Dr. Raheem Perez and he advises he will see this patient in the ER. Discharge - Discharge Clinical Impression: Morbid obesity, Acute hypoxemic respiratory failure, COVID-19 virus test result unknown, Acute on chronic systolic (congestive) heart failure Pneumonia Qualifiers: Pneumonia type: due to unspecified organism Laterality: bilateral Lung location: lower lobe of lung Qualified Code(s): J18.9 - Pneumonia, unspecified organism Condition: Stable Disposition: ADMITTED INPATIENT Admitting Provider: Dr Raheem Perez Unit Admitted: IMCU Referrals: FRANCINE PRESSLEY, VEHICLE CHECK IN CLERK [Primary Care Provider] - Follow up as needed
[2020-01-03] MEDS ORDERED: LORAZEPAM INJ 2 MG/1 ML VIAL IV ONE (00:44)
[2020-01-03 00:47] LABS: ABSOLUTE BASOPHILS # (AUTO) 0.1 10^3/uL (0.0-0.2); BASOPHILS % (AUTO) 0.4 % (0-2); HEMOGLOBIN 13.4 g/dL (12.0-15.5); RED CELL DISTRIBUTION WIDTH 16.5 % (11.5-14.0); TOTAL CELLS COUNTED % (AUTO) 100 %; WHITE BLOOD COUNT 14.5 10^3/uL (4.0-10.5)
[2020-01-03 00:50] LABS: ABSOLUTE EOSINOPHILS # (AUTO) 0.2 10^3/uL (0.0-0.6); ABSOLUTE LYMPHOCYTES (AUTO) 2.7 10^3/uL (0.5-4.7); ABSOLUTE MONOCYTES (AUTO) 0.7 10^3/uL (0.1-1.4); ABSOLUTE NEUT (AUTO) 10.8 10^3/uL (1.7-8.2); EOSINOPHILS % (AUTO) 1.5 % (0-6); HEMATOCRIT 40.3 % (36.0-47.0); LYMPHOCYTES % (AUTO) 18.5 % (13-45); MEAN CORPUSCULAR HEMOGLOBIN 25.7 pg (27.0-33.4); MEAN CORPUSCULAR HGB CONC 33.4 g/dL (32.0-36.0); MEAN CORPUSCULAR VOLUME 77 fl (80-97); MONOCYTES % (AUTO) 5.2 % (3-13); PLATELET COUNT 235 10^3/uL (150-450); RED BLOOD COUNT 5.23 10^6/uL (3.72-5.28); SEGMENTED NEUTROPHILS % (AUTO) 74.4 % (42-78)
[2020-01-03 00:52] LABS: ALBUMIN 3.9 g/dL (3.5-5.0); ALKALINE PHOSPHATASE 75 U/L (38-126); ANION GAP 11 (5-19); ASPARTATE AMINO TRANSFERASE 19 U/L (14-36); BILIRUBIN,DIRECT 0.4 mg/dL (0.0-0.4); BILIRUBIN,TOTAL 0.8 mg/dL (0.2-1.3); BLOOD UREA NITROGEN 16 mg/dL (7-20); CALCIUM 9.1 mg/dL (8.4-10.2); CARBON DIOXIDE 25 mmol/L (22-30); CHLORIDE 101 mmol/L (98-107); CREATINE KINASE 124 U/L (30-135); GLUCOSE 318 mg/dL (75-110); POTASSIUM 4.2 mmol/L (3.6-5.0); TOTAL PROTEIN 6.7 g/dL (6.3-8.2)
[2020-01-03 00:56] LABS: INTERNATIONAL RATION (INR) 1.14; PROTHROMBIN TIME 14.8 SEC (11.4-15.4)
[2020-01-03 00:57] LABS: PARTIAL THROMBOPLASTIN TIME 36.8 SEC (23.5-35.8)
[2020-01-03 01:19] LABS: TROPONIN I 0.091 ng/mL
[2020-01-03] MEDS ORDERED: BUMETANIDE INJ/PF 1 MG/4 ML SDV IV ONE (01:36)
[2020-01-03] MEDS ORDERED: HYDROMORPHONE HCL INJ/PF 2 MG/ML AMPULE IV ONE (02:15)
--- NOTE | 2020-01-03 02:22 | RADIOLOGY REPORT (SQ) ---
COMPLETED DATE/TME: 01/03/2020 00:40 EXAM: CT chest angiogram with contrast. INDICATION: Chest pain. TECHNIQUE: Contiguous axial CT images of the chest. Intravenous contrast: Present. Protocol: Pulmonary embolus (PE) protocol angiogram. Reformats: MIPs and MPRs created and utilized. DLP 1914 mGy-cm. This exam was performed according to our departmental dose-optimization program, which includes automated exposure control, adjustment of the mA and/or kV according to patient size and/or use of iterative reconstruction technique. Note: LV=left ventricle. RV=right ventricle. COMPARISON: 12/23/2019. FINDINGS: Upper abdomen: Partially imaged. Cholecystectomy. Thoracic aorta: Unremarkable. Heart: No right atrial thrombus. Left chest wall pacemaker/AICD with leads terminating within the right atrium and right ventricle. RV/LV ratio: Within normal limits. Pulmonary arteries: Technical: Adequate opacification to the level of the segmental vessels. Pulmonary embolus: No low-density filling defect to suggest acute PE. Overall embolic burden: None. Mediastinum: Mediastinal lymph nodes measure up to 2.2 cm in size. Tracheobronchial tree: Unremarkable. Lungs: Lobar consolidation: There is interstitial thickening with groundglass opacities with bilateral consolidations, worse along the all lower lobes. Pleural effusion: Small bilateral Pneumothorax: Negative. Other: Negative. Bones: Unremarkable. IMPRESSION: 1. No CT evidence of acute PE. 2. Interstitial thickening with groundglass opacities with consolidations, worse along the lower lobes. This may represent pulmonary edema and/or pneumonia. Viral pneumonia is not excluded. Small bilateral pleural effusions. 3. Mediastinal lymphadenopathy, likely reactive.
[2020-01-03] MEDS ORDERED: LEVOFLOXACIN 750 MG/D5W RTU 750 MG/150 ML RTUPB IV ONE (02:25)
[2020-01-03] MEDS ORDERED: VANCOMYCIN HCL INJ 1000 MG VIAL IV ONE (02:25)
[2020-01-03] MEDS ORDERED: FAMOTIDINE INJ/PF 20 MG/2 ML SDV IV ONE (02:26)
[2020-01-03] MEDS ORDERED: DEXAMETHASONE SOD PHOS INJ 10 MG/1 ML VIAL IV ONE (02:26)
[2020-01-03] MEDS ORDERED: ONDANSETRON HCL INJ/PF 4 MG/2 ML SDV IV ONE (03:01)
[2020-01-03] MEDS ORDERED: GUAIFENESIN SYRP 200 MG/10 ML UDC PO PRN (03:29)
[2020-01-03] MEDS ORDERED: ACETAMINOPHEN 325 MG TABLET PO PRN (03:29)
[2020-01-03] MEDS ORDERED: ALBUTEROL SULFATE HFA (90 MCG/PUFF) 8 GM MDI IH PRN (03:29)
--- NOTE | 2020-01-03 04:20 | PDOC H&P ---
History of Present Illness Admission Date/PCP: 01/03/20 02:57 FRANCINE PRESSLEY NP Patient complains of: Worsening of shortness of breath History of Present Illness: DAYTON MENDOZA is a 39 year old female with a past medical history of dilated cardiomyopathy, COPD on 3 L intranasal oxygen at home who presents with 2 days duration of worsening shortness of breath, with associated cough productive of scanty sputum and mild subjective fever. Patient states that she was evaluated at this ER a day ago for a similar complaint and was discharged improved after she was given breathing treatment and Lasix but this morning symptoms started to get progressively worse again. She states that she has a longstanding shortness of breath due to her underlying medical condition. She has apnea and PND. She uses CPAP at home. She also endorses nausea and one episode of vomiting of ingested matter but denies any abdominal pain, constipation or diarrhea. She denies any sick contact history. Past Medical History Cardiac Medical History: Reports: Atrial Fibrillation, Congestive Heart Failure, Hyperlipidema, Hypertension Denies: Coronary Artery Disease, Myocardial Infarction Pulmonary Medical History: Reports: Asthma, Bronchitis, Chronic Obstructive Pulmonary Disease (COPD), Pneumonia, Respiratory Failure - chronic: on 3 L/min of oxygen per nasal cannula, continuously. Neurological Medical History: Denies: Seizures Endocrine Medical History: Reports: Diabetes Mellitus Type 2 - insulin dependent Denies: Diabetes Mellitus Type 1, Hyperthyroidism, Hypothyroidism GI Medical History: Denies: Cirrhosis, Crohn's Disease, Hepatitis, Ulcerative Colitis Musculoskeltal Medical History: Denies: Arthritis, Fibromyalgia Skin Medical History: Denies: Eczema, Psoriasis Psychiatric Medical History: Reports: Bipolar Disorder, Depression Hematology: Reports: Anemia Denies: Bleeding Tendencies Past Surgical History Past Surgical History: Reports: Cardiac Catheterization, Cholecystectomy, Herniorrhaphy Social History Information Source: Patient Lives with: Family Smoking Status: Current Every Day Smoker Frequency of Alcohol Use: None Hx Recreational Drug Use: No Drugs: None Hx Prescription Drug Abuse: No - Advance Directive Resuscitation Status: Full Code Family History Family History: Reviewed & Not Pertinent, CAD, DM, Hypertension, Malignancy Parental Family History Reviewed: Yes Children Family History Reviewed: Yes Sibling(s) Family History Reviewed.: Yes Medication/Allergy Home Medications: Carvedilol [Coreg 6.25 mg Tablet] 6.25 mg PO Q12 12/22/18 Cyclobenzaprine HCl [Flexeril 10 mg Tablet] 10 mg PO TID 12/22/18 Loratadine [Claritin 10 mg Tablet] 10 mg PO DAILY 12/22/18 Epinephrine 0.3 mg IM ASDIR PRN 09/06/19 Insulin Glargine,Hum.rec.anlog [Lantus Insulin 100 Unit/mL Insulin Pen] 80 unit SUBCUT QAM 09/06/19 Insulin Lispro [Humalog Kwikpen U-100] 20 unit SQ AC MDD 80 UNITS 09/06/19 Metformin HCl 1,000 mg PO BIDBS 09/06/19 Diclofenac Sodium 1 applic TOP BIDP PRN 01/03/20 Empagliflozin [Jardiance] 10 mg PO DAILY 01/03/20 Gabapentin [Neurontin 300 mg Capsule] 600 mg PO Q12 01/03/20 Hydrocortisone [Hydrocortisone 1% Cream 28.35 Gm] 1 applic TP BID 01/03/20 Insulin Lispro [Humalog Insulin 100 Unit/1 ml 3 ml Vial] 0 unit SUBCUT .SLD SCALE MDD 80 UNITS 01/03/20 Zolpidem Tartrate [Ambien 5 mg Tablet] 10 mg PO QHS 01/03/20 Allergies/Adverse Reactions: amoxicillin [Amoxicillin] Allergy (Severe, Verified 01/02/20 00:39) Anaphylaxis Penicillins Allergy (Severe, Verified 01/02/20 00:39) Anaphylaxis Bees/Wasp Allergy (Severe, Uncoded 12/23/19 15:16) Anaphylaxis Review of Systems Constitutional: PRESENT: chills, fatigue, weakness Eyes: ABSENT: visual disturbances Ears: ABSENT: hearing changes Nose, Mouth, and Throat: ABSENT: as per HPI, headache(s), mouth pain, sore throat, vertigo, other Cardiovascular: PRESENT: dyspnea on exertion, orthropnea, palpitations Respiratory: PRESENT: as per HPI Gastrointestinal: ABSENT: abdominal pain, constipation, diarrhea, hematemesis, hematochezia, nausea, vomiting Genitourinary: ABSENT: dysuria, hematuria Musculoskeletal: ABSENT: joint swelling Neurological: ABSENT: abnormal speech, confusion, dizziness, focal weakness, syncope Psychiatric: ABSENT: anxiety, depression, homidical ideation, suicidal ideation Endocrine: ABSENT: cold intolerance, heat intolerance, polydipsia, polyuria Hematologic/Lymphatic: ABSENT: easy bleeding, easy bruising Physical Exam Vital Signs: Temp Pulse Resp BP Pulse Ox 98.0 F 26 H 160/108 H 100 01/03/20 02:02 01/03/20 03:01 01/03/20 03:01 01/03/20 03:01 Intake & Output 01/01/20 01/02/20 01/03/20 06:59 06:59 06:59 Weight 143.335 kg Additional comments: GENERAL APPEARANCE: Obese in mild respiratory distress, currently on BiPAP, alert and oriented x4 HEENT: Normocephalic and atraumatic. No scleral icterus. PERRLA, EOMs are full, no conjunctival injection is noted. NECK: Supple. Trachea is midline. No evidence of thyroid enlargement. No lymphadenopathy or tenderness. No carotid bruit. No JVD CHEST: Symmetric. Nontender to palpation. LUNGS: Breath sounds are equal and clear bilaterally. No wheezes, rhonchi, or rales. HEART: Regular rate and rhythm with normal S1 and S2. No murmurs, gallops, or rubs. ABDOMEN: Soft, flat, and benign. No mass, tenderness, guarding, or rebound. No organomegaly. Bowel sounds are present. No CVA tenderness. EXTREMITIES: No cyanosis, clubbing, or edema. MUSCULOSKELETAL: No deformity, atrophy or swelling noted PSYCHIATRIC: The patient is awake, alert, and oriented x3. Recent and remote memory is intact. Appropriate mood and affect. SKIN: Warm, dry, and well perfused. No lesions or rashes are noted. NEUROLOGIC: No focal sensory or motor deficits are noted. Deep tendon reflexes are intact. Results Laboratory Results: 01/03/20 00:18 01/03/20 00:18 01/03/20 01/03/20 00:18 00:18 WBC 14.5 H RBC 5.23 Hgb 13.4 Hct 40.3 MCV 77 L MCH 25.7 L MCHC 33.4 RDW 16.5 H Plt Count 235 Seg Neutrophils % 74.4 Sodium 136.8 L Potassium 4.2 Chloride 101 Carbon Dioxide 25 Anion Gap 11 BUN 16 Creatinine 0.94 Est GFR ( Amer) > 60 Glucose 318 H Calcium 9.1 Total Bilirubin 0.8 AST 19 Alkaline Phosphatase 75 Total Protein 6.7 Albumin 3.9 01/03/20 01/03/20 00:18 00:18 Creatine Kinase 124 Troponin I 0.091 NT-Pro-B Natriuret Pep 2130 H Impressions: Chest/Abdomen CTA 01/03/20 00:40 IMPRESSION: 1. No CT evidence of acute PE. 2. Interstitial thickening with groundglass opacities with consolidations, worse along the lower lobes. This may represent pulmonary edema and/or pneumonia. Viral pneumonia is not excluded. Small bilateral pleural effusions. 3. Mediastinal lymphadenopathy, likely reactive. Assessment and Plan - Diagnosis (1) Acute hypoxemic respiratory failure Is this a current diagnosis for this admission?: Yes Plan: On arrival patient was saturating 88- 90% on 3 L intranasal oxygen Likely due to COPD exacerbation precipitated by pneumonia Currently on BiPAP and transition to intranasal oxygen when she tolerates Will treat underlying etiology and closely monitor response to treatment (2) Acute on chronic systolic (congestive) heart failure Is this a current diagnosis for this admission?: Yes Plan: Patient has a history of dilated cardiomyopathy Currently presented with worsening of shortness of breath, orthopnea BNP elevated 2130 CTA chest showed interstitial thickening Placed her on Lasix 40 mg IV twice daily Daily weights, strict I&O's, fluid restriction Will continue monitoring response to treatments (3) COVID-19 virus test result unknown Is this a current diagnosis for this admission?: Yes Plan: Patient is a high risk group with multiple comorbidities Presents with cough, fever, shortness of breath CTA chest shows bibasilar groundglass opacities with consolidation concerning for possible viral pneumonia Will follow up with COVID-19 test In the meantime we will treat her with dexamethasone, housing, vitamin C and vitamin D Moderate treatment for fever, pain and hypoxia with intranasal oxygen (4) Pneumonia Qualifiers: Pneumonia type: due to unspecified organism Laterality: bilateral Lung location: lower lobe of lung Qualified Code(s): J18.9 - Pneumonia, unspecified organism Is this a current diagnosis for this admission?: Yes Plan: Patient presents with cough fever, shortness of breath Likely viral cause, has leukocytosis of 14.5 with left shift CTA chest showed bibasilar interstitial thickening and groundglass opacity with consolidation Follow-up with blood culture obtained at the ER Continue Levaquin for now Follow-up with Covid 19 test results (5) COPD exacerbation Is this a current diagnosis for this admission?: Yes Plan: Patient reported increased cough, sputum production and shortness of breath Likely precipitated by infection likely viral Albuterol inhaler every 6 hourly as needed continue home dose long-acting inhalers Patient currently on BiPAP and will transition her oxygen when she tolerates (6) Morbid obesity Is this a current diagnosis for this admission?: Yes Plan: Has a BMI of 45.2 Advised her on dietary habits change and regular exercise - Time Time Spent with patient: 35 or more minutes Total Critical Time (Minutes): 45 Smoking Cessation Education: 3 to 10 minutes Medications reviewed and adjusted accordingly: Yes Anticipated Discharge Disposition: Home with Home Health Anticipated Discharge Timeframe: within 48 hours - Inpatient Certification Medical Necessity: Failure to Improve With Outpatient Therapy, Significant Comorbidiites Make Outpatient Treatment Too Risky, Need Close Monitoring Due to Risk of Patient Decompensation Post Hospital Care: D/C or Transfer Summary
[2020-01-03] MEDS: INSULIN LISPRO 100 UNIT/ML 3 ML VIAL SUBCUT SCH ×6 (08:47→23:12)
[2020-01-03] MEDS: FUROSEMIDE INJ/PF 40 MG/4 ML SDV IV SCH ×2 (09:36→23:17)
[2020-01-03] MEDS: CARVEDILOL 6.25 MG TABLET PO SCH ×2 (09:36→23:17)
[2020-01-03] MEDS: DEXAMETHASONE SOD PHOS INJ 10 MG/1 ML VIAL IV SCH (09:36)
[2020-01-03] MEDS: ZINC SULFATE 220 MG CAPSULE PO SCH (09:36)
[2020-01-03] MEDS: ASCORBIC ACID 500 MG TABLET PO SCH ×2 (09:36→18:02)
[2020-01-03] MEDS: ISOSORBIDE MONONITRATE 30 MG TAB.ER.24H PO SCH (09:36)
[2020-01-03] MEDS: SACUBITRIL/VALSARTAN 49 MG/51 MG TABLET PO SCH ×2 (09:36→18:02)
[2020-01-03] MEDS: ENOXAPARIN SODIUM INJ 40 MG/0.4 ML DISP.SYRIN SUBCUT SCH (09:36)
[2020-01-03] MEDS: FAMOTIDINE 20 MG TABLET PO SCH ×2 (09:37→23:17)
[2020-01-03] MEDS: CHOLECALCIFEROL (D3) 1,000 UNIT (25 MCG) TABLET PO SCH (09:37)
[2020-01-03] MEDS ORDERED: INSULIN GLARGINE,HUM.REC.ANLOG 1,000 UNIT/10 ML VIAL SUBCUT SCH (10:00)
[2020-01-03] MEDS ORDERED: INSULIN GLARGINE,HUM.REC.ANLOG 1,000 UNIT/10 ML VIAL (PYX) SUBCUT ONE (10:15)
[2020-01-03] MEDS ORDERED: INSULIN LISPRO 100 UNIT/ML 3 ML VIAL SUBCUT SCH (16:00)
--- NOTE | 2020-01-03 18:00 | EKG REPORT ---
SEVERITY:- ABNORMAL ECG - SINUS TACHYCARDIA FRANCK, CONSIDER BIATRIAL ABNORMALITIES ABNORMAL Q SUGGESTS ANTERIOR INFARCT : Confirmed by: Shaji Kimble MD 03-Jan-2020 17:59:27
--- NOTE | 2020-01-03 18:51 | PDOC CONSULTATION ---
Consultation Consult Date: 01/03/20 Attending physician:: RADHA MEDRANO Provider Consulted: WICHO SOLER Consult reason:: Detectable troponin. History of Present Illness Admission Date/PCP: 01/03/20 10:13 FRANCINE PRESSLEY NP History of Present Illness: DAYTON MENDOZA is a 39 year old female with history of hypertension, COPD on home oxygen, paroxysmal atrial fibrillation, type 2 diabetes, sleep apnea on CPAP, ex-smoker who quit several months ago, heart failure with reduced ejection fraction secondary to nonischemic dilated cardiomyopathy s/p ICD implantation who is consulted to our service for evaluation of detectable troponin. The patient has had multiple admissions in the past for HF and COPD exacerbations secondary to non-compliance with medications and life-style changes. Review of her chart demonstrates multiple and frequent visits to the ED at [facility] for dyspnea and chest pain. This review also demonstrates that the patient has chronically detectable cardiac troponins. She initially presented to our ED on 01/02/20 complaining of shortness of breathas well as chest heaviness and tightness, along with shortness of breath. She was given 2 albuterol treatments and 125 mg Solu-Medrol by paramedics and received Lasix 20 mg IV x1 in the ED with improvem ent of symptoms reason why she was discharged home. Of note, the ED physician, Dr. Walker, documented that "Upon entry to the room, patient was talking on her cell phone with her mother, normal respiratory rate. She then ended the phone call and began to almost hyper ventilate, taking multiple shallow breaths. She was able to talk in full sentences, oxygen saturation 100% on 2L". She then returned to the ED on the day of admission complaining of worsening shortness of breath now associated cough productive of sputum and subjective fever. She is currently admitted to the Covid unit and awaiting results of Covid testing. Of note, the current note and information above is obtained from records review and not directly from patient interview given her unknown Covid status with suspicious symptoms, physical exam is deferred due to the above reasons. Cardiac studies: Echocardiogram on 05/23/2019: -LV is normal in size. -EF 30 to 35%. -Grade 3 diastolic dysfunction. -Severe global hypokinesis. -Moderate LAE. -Mild MR, trace TR. Lexiscan MPS on 05/17/18 at [facility]: -Very poor quality study and very difficult to interpret. -Breast attenuation artifact as well as liver and bowel contamination artifact of the inferior wall. -Small area of ischemia in the ventricular apex. -Dilated LV with severely reduced LV systolic function. [facility] on 05/30/18: -CORONARY ANATOMY: [Vessels are of normal caliber and extent without significant calcification] -VENTRICULOGRAPHY: Ventriculography is performed in the [place] projection and demonstrates [dilated left ventricle with preserved wall motion lower limits of normal left ventricular function with no evidence of mitral regurgitation. The ascending aorta is normal] . CORONARY ANGIOGRAPHY: [] -LEFT MAIN: [Normal] -LEFT ANTERIOR DESCENDING: [Transapical and normal] -CIRCUMFLEX CORONARY: [Normal obtuse marginal] -RIGHT CORONARY ARTERY: [Normal] IMPRESSION: 1. Lower limits of normal left ventricular function 2. Normal epicardial coronaries 3. No evidence of valvular heart disease 4. Elevated left ventricular end-diastolic pressure Chest CT scan on May 02: -Minimal lingular and basilar atelectasis without consolidation. No PE. Past Medical History Cardiac Medical History: Reports: Atrial Fibrillation, Congestive Heart Failure, Hyperlipidema, Hypertension Denies: Coronary Artery Disease, Myocardial Infarction Pulmonary Medical History: Reports: Asthma, Bronchitis, Chronic Obstructive Pulmonary Disease (COPD), Pneumonia, Respiratory Failure - chronic: on 3 L/min of oxygen per nasal cannula, continuously. Neurological Medical History: Denies: Seizures Endocrine Medical History: Reports: Diabetes Mellitus Type 2 - insulin dependent Denies: Diabetes Mellitus Type 1, Hyperthyroidism, Hypothyroidism GI Medical History: Denies: Cirrhosis, Crohn's Disease, Hepatitis, Ulcerative Colitis Musculoskeltal Medical History: Denies: Arthritis, Fibromyalgia Skin Medical History: Denies: Eczema, Psoriasis Psychiatric Medical History: Reports: Bipolar Disorder, Depression Hematology: Reports: Anemia Denies: Bleeding Tendencies Past Surgical History Past Surgical History: Reports: Cardiac Catheterization, Cholecystectomy, Herniorrhaphy Social History Lives with: Family Smoking Status: Current Every Day Smoker Frequency of Alcohol Use: None Hx Recreational Drug Use: No Drugs: None Hx Prescription Drug Abuse: No - Advance Directive Resuscitation Status: Full Code Family History Family History: Reviewed & Not Pertinent, CAD, DM, Hypertension, Malignancy Parental Family History Reviewed: Yes - From record review Children Family History Reviewed: Yes Sibling(s) Family History Reviewed.: Yes Medication/Allergy Home Medications: Carvedilol [Coreg 6.25 mg Tablet] 6.25 mg PO Q12 10/11/19 Cyclobenzaprine HCl [Flexeril 10 mg Tablet] 10 mg PO TID 12/22/18 Loratadine [Claritin 10 mg Tablet] 10 mg PO DAILY 12/22/18 Epinephrine 0.3 mg IM ASDIR PRN 09/06/19 Insulin Glargine,Hum.rec.anlog [Lantus Insulin 100 Unit/mL Insulin Pen] 80 unit SUBCUT QAM 09/06/19 Insulin Lispro [Humalog Kwikpen U-100] 20 unit SQ AC MDD 80 UNITS 09/06/19 Metformin HCl 1,000 mg PO BIDBS 09/06/19 Diclofenac Sodium 1 applic TOP BIDP PRN 01/03/20 Empagliflozin [Jardiance] 10 mg PO DAILY 01/03/20 Gabapentin [Neurontin 300 mg Capsule] 600 mg PO Q12 01/03/20 Hydrocortisone [Hydrocortisone 1% Cream 28.35 Gm] 1 applic TP BID 01/03/20 Insulin Lispro [Humalog Insulin 100 Unit/1 ml 3 ml Vial] 0 unit SUBCUT .SLD SCALE MDD 80 UNITS 01/03/20 Zolpidem Tartrate [Ambien 5 mg Tablet] 10 mg PO QHS 01/03/20 Allergies/Adverse Reactions: amoxicillin [Amoxicillin] Allergy (Severe, Verified 01/02/20 00:39) Anaphylaxis Penicillins Allergy (Severe, Verified 01/02/20 00:39) Anaphylaxis Bees/Wasp Allergy (Severe, Uncoded 12/23/19 15:16) Anaphylaxis Physical Exam Vital Signs: Temp Pulse Resp BP Pulse Ox 97.5 F 75 23 H 102/60 100 01/03/20 16:02 01/03/20 16:02 01/03/20 16:02 01/03/20 16:02 01/03/20 16:02 Intake & Output 01/02/20 01/03/20 01/04/20 06:59 06:59 06:59 Intake Total 150 476 Output Total 0 Balance 150 476 Weight 147.1 kg Results Laboratory Results: 01/03/20 00:18 01/03/20 00:18 01/03/20 01/03/20 01/03/20 00:18 00:18 05:44 WBC 14.5 H RBC 5.23 Hgb 13.4 Hct 40.3 MCV 77 L MCH 25.7 L MCHC 33.4 RDW 16.5 H Plt Count 235 Seg Neutrophils % 74.4 Sodium 136.8 L Potassium 4.2 Chloride 101 Carbon Dioxide 25 Anion Gap 11 BUN 16 Creatinine 0.94 Est GFR ( Amer) > 60 Glucose 318 H Calcium 9.1 Ferritin 29.00 Total Bilirubin 0.8 AST 19 Alkaline Phosphatase 75 C-Reactive Protein 15.0 H Total Protein 6.7 Albumin 3.9 01/03/20 01/03/20 00:18 00:18 Creatine Kinase 124 Troponin I 0.091 NT-Pro-B Natriuret Pep 2130 H Impressions: Chest/Abdomen CTA 01/03/20 00:40 IMPRESSION: 1. No CT evidence of acute PE. 2. Interstitial thickening with groundglass opacities with consolidations, worse along the lower lobes. This may represent pulmonary edema and/or pneumonia. Viral pneumonia is not excluded. Small bilateral pleural effusions. 3. Mediastinal lymphadenopathy, likely reactive. 01/03/20 00:18 01/03/20 00:18 MCV 77 fl (80-97) L 01/03/20 00:18 MCH 25.7 pg (27.0-33.4) L 01/03/20 00:18 MCHC 33.4 g/dL (32.0-36.0) 01/03/20 00:18 RDW 16.5 % (11.5-14.0) H 01/03/20 00:18 Seg Neutrophils % 74.4 % (42-78) 01/03/20 00:18 Chloride 101 mmol/L (98-107) 01/03/20 00:18 Carbon Dioxide 25 mmol/L (22-30) 01/03/20 00:18 Anion Gap 11 (5-19) 01/03/20 00:18 Est GFR ( Amer) > 60 (>60) 01/03/20 00:18 Glucose 318 mg/dL (75-110) H 01/03/20 00:18 Calcium 9.1 mg/dL (8.4-10.2) 01/03/20 00:18 Ferritin 29.00 ng/mL (6.2-137.0) 01/03/20 05:44 Total Bilirubin 0.8 mg/dL (0.2-1.3) 01/03/20 00:18 AST 19 U/L (14-36) 01/03/20 00:18 Alkaline Phosphatase 75 U/L (38-126) 01/03/20 00:18 C-Reactive Protein 15.0 mg/L (<10.0) H 01/03/20 05:44 Total Protein 6.7 g/dL (6.3-8.2) 01/03/20 00:18 Albumin 3.9 g/dL (3.5-5.0) 01/03/20 00:18 01/03/20 01/03/20 00:18 00:18 Creatine Kinase 124 Troponin I 0.091 NT-Pro-B Natriuret Pep 2130 H Current Medication List Generic Name Dose Route Start Last Admin Trade Name Freq PRN Reason Stop Dose Admin Acetaminophen 650 mg 01/03/20 03:29 Tylenol 325 Mg Tablet PO 02/02/20 03:28 Q6HP PRN Temperature greater than 101F Albuterol 2 puff 01/03/20 03:29 Ventolin Hfa 8 Gm Mdi IH 02/02/20 03:28 Q6HP PRN FOR WHEEZING Ascorbic Acid 500 mg 01/03/20 10:00 01/03/20 18:02 Vitamin C 500 Mg Tablet PO 02/02/20 09:59 500 mg BID ALFONSO Administration Carvedilol 6.25 mg 01/03/20 10:00 01/03/20 09:36 Coreg 6.25 Mg Tablet PO 02/02/20 09:59 6.25 mg Q12 ALFONSO Administration Cholecalciferol 1,000 unit 01/03/20 10:00 01/03/20 09:37 Vitamin D3 1000 Unit Tablet PO 02/02/20 09:59 1,000 unit DAILY ALFONSO Administration Dexamethasone Sodium Phosphate 6 mg 01/03/20 10:00 01/03/20 09:36 Decadron Inj 10 Mg/1 Ml Vial IV 01/13/20 09:59 6 mg DAILY ALFONSO Administration Enoxaparin Sodium 40 mg 01/03/20 10:00 01/03/20 09:36 Lovenox Inj 40 Mg/0.4 Ml Disp.Syrin SUBCUT 02/02/20 09:59 40 mg DAILY ALFONSO Administration Famotidine 20 mg 01/03/20 10:00 01/03/20 09:37 Pepcid 20 Mg Tablet PO 02/02/20 09:59 20 mg Q12 ALFONSO Administration Furosemide 40 mg 01/03/20 10:00 01/03/20 09:36 Lasix Inj/Pf 40 Mg/4 Ml Sdv IV 02/02/20 09:59 40 mg Q12 ALFONSO Administration Guaifenesin 200 mg 01/03/20 03:29 Robitussin Syrup 200 Mg/10 Ml Ud Cup PO 02/02/20 03:28 QIDP PRN COUGH Influenza Virus Vaccine Quadrival 0.5 ml 01/04/20 08:00 Flulaval Quad 2020-21 Vac 0.5 Ml Syr IM 01/04/20 08:01 .ONCE ONE Insulin Glargine 65 unit 01/04/20 10:00 Lantus Insulin 100 Unit/1 Ml 10 Ml SUBCUT 02/03/20 09:59 DAILY [facility] Insulin Human Lispro 0 - 16 unit 01/03/20 08:00 01/03/20 16:31 Humalog Insulin 100 Unit/1 Ml 3 Ml Vial SUBCUT 02/02/20 07:59 12 unit ACHS [facility] Administration Protocol Insulin Human Lispro 20 unit 01/03/20 16:00 01/03/20 16:31 Humalog Insulin 100 Unit/1 Ml 3 Ml Vial SUBCUT 02/02/20 15:59 20 unit AC ALFONSO Administration Protocol Isosorbide Mononitrate 15 mg 01/03/20 10:00 01/03/20 09:36 Imdur 30 Mg Tablet.Er PO 02/02/20 09:59 15 mg DAILY ALFONSO Administration Levofloxacin 750 mg 01/04/20 10:00 Levaquin 750 Mg Tablet PO 01/11/20 09:59 DAILY [facility] Sacubitril/Valsartan 1 tab 01/03/20 10:00 01/03/20 18:02 Entresto 49 Mg/51 Mg Tablet PO 02/02/20 09:59 1 tab BID ALFONSO Administration Sodium Chloride 2.5 ml 01/03/20 06:00 01/03/20 16:15 Saline Flush 2.5 Ml Monoject Prefil Syrin IV 02/02/20 05:59 Not Given Q8 ALFONSO Zinc Sulfate 220 mg 01/03/20 10:00 01/03/20 09:36 Zinc-220 Capsule PO 02/02/20 09:59 220 mg DAILY ALFONSO Administration Discontinued Medications Generic Name Dose Route Start Last Admin Trade Name Freq PRN Reason Stop Dose Admin Bumetanide 1 mg 01/03/20 01:36 01/03/20 01:57 Bumex Inj/Pf 1 Mg/4 Ml Sdv IV 01/03/20 01:37 1 mg NOW ONE Administration Dexamethasone Sodium Phosphate 10 mg 01/03/20 02:26 01/03/20 02:44 Decadron Inj 10 Mg/1 Ml Vial IV 01/03/20 02:27 10 mg NOW ONE Administration Famotidine 20 mg 01/03/20 02:26 01/03/20 02:44 Pepcid Inj/Pf 20 Mg/2 Ml Sdv IV 01/03/20 02:27 20 mg NOW ONE Administration Hydromorphone HCl 1 mg 01/03/20 02:15 01/03/20 02:22 Dilaudid Inj/Pf 2 Mg/Ml Ampule IV 01/03/20 02:16 1 mg NOW ONE Administration Levofloxacin/Dextrose 750 mg in 150 mls @ 100 mls/hr 01/03/20 02:25 01/03/20 04:35 Levaquin Rtu 750 Mg/D5w 150 Ml Premix IV 01/03/20 03:54 Infused NOW ONE Infusion Insulin Glargine 55 unit 01/03/20 10:00 01/03/20 11:32 Lantus Insulin 100 Unit/1 Ml 10 Ml SUBCUT 02/02/20 09:59 Not Given DAILY [facility] Insulin Glargine 55 unit 01/03/20 10:15 01/03/20 10:52 Lantus (Pyxis) Insulin 100 Unit/1 Ml 10 Ml SUBCUT 01/03/20 10:16 55 unit NOW ONE Administration Insulin Glargine 55 unit 01/04/20 10:00 Lantus Insulin 100 Unit/1 Ml 10 Ml SUBCUT 02/03/20 09:59 DAILY [facility] Insulin Human Lispro 15 unit 01/03/20 08:00 01/03/20 12:30 Humalog Insulin 100 Unit/1 Ml 3 Ml Vial SUBCUT 02/02/20 07:59 15 unit AC [facility] Administration Protocol Lorazepam 1 mg 01/03/20 00:44 01/03/20 00:50 Ativan Inj 2 Mg/1 Ml Vial IV 01/03/20 00:45 1 mg NOW ONE Administration Ondansetron HCl 4 mg 01/03/20 03:01 01/03/20 03:41 Zofran Inj/Pf 4 Mg/2 Ml Sdv IV 01/03/20 03:02 4 mg NOW ONE Administration Vancomycin HCl 1,000 mg 01/03/20 02:25 01/03/20 04:35 Vancocin Inj 1000 Mg Vial IV 01/03/20 02:26 1,000 mg IVBAG (ED) ONE Administration Assessment & Plan - Diagnosis (1) Heart failure with reduced ejection fraction Is this a current diagnosis for this admission?: Yes Plan: The patient has had multiple exacerbations of HF in the past secondary to non-c ompliance with diet, medications and life-style changes. She is currently being treated adequately. Recommendations: -Restrict fluid intake to 1500 ml daily. -Low sodium, less than 1500 mg, diet. -Strict intake and output. -Daily BMP and Mg, replace electrolytes as needed. -Continue with current management. -Minimize IV fluids to only those strictly necessary. -Cardiology does not have further recommendations, we will sign off. Please reconsult if clinically indicated. (2) Elevated troponin Is this a current diagnosis for this admission?: Yes Plan: The patient has chronically detectable troponins that have remained in the indeterminate range. Her current troponin is essentially flat when compared to a prior level obtained 1 day prior to admission and, again, remains in the indeterminate range. She had a cardiac catheterization in our facility in May 2018 with no evidence of coronary artery disease therefore, at this point, she does not require further cardiac work up. Please assess the patient for non- ischemic causes of chest pain and detectable troponins. Cardiology will sign off the case, please reconsult if clinically indicated.
[2020-01-03] MEDS ORDERED: CYCLOBENZAPRINE HCL 10 MG TABLET PO ONE (22:30)
[2020-01-04 05:59] LABS: HEMOGLOBIN 12.7 g/dL (12.0-15.5); MEAN CORPUSCULAR HEMOGLOBIN 25.8 pg (27.0-33.4); MEAN CORPUSCULAR HGB CONC 33.5 g/dL (32.0-36.0); MEAN CORPUSCULAR VOLUME 77 fl (80-97); PLATELET COUNT 229 10^3/uL (150-450); RED BLOOD COUNT 4.92 10^6/uL (3.72-5.28); RED CELL DISTRIBUTION WIDTH 16.5 % (11.5-14.0); WHITE BLOOD COUNT 18.8 10^3/uL (4.0-10.5)
[2020-01-04 06:22] LABS: ANION GAP 9 (5-19); BLOOD UREA NITROGEN 21 mg/dL (7-20); CALCIUM 8.8 mg/dL (8.4-10.2); CARBON DIOXIDE 25 mmol/L (22-30); CHLORIDE 101 mmol/L (98-107); GLUCOSE 288 mg/dL (75-110); POTASSIUM 4.1 mmol/L (3.6-5.0)
[2020-01-04] MEDS: INSULIN LISPRO 100 UNIT/ML 3 ML VIAL SUBCUT SCH ×7 (07:54→21:37)
[2020-01-04] MEDS ORDERED: INFLUENZA QUAD (6MOS+) 2020-21 VAC 0.5 ML SYR IM ONE (08:00)
[2020-01-04] MEDS: SACUBITRIL/VALSARTAN 49 MG/51 MG TABLET PO SCH ×2 (09:05→17:00)
[2020-01-04] MEDS: FAMOTIDINE 20 MG TABLET PO SCH ×2 (09:05→21:38)
[2020-01-04] MEDS: CARVEDILOL 6.25 MG TABLET PO SCH ×2 (09:06→21:38)
[2020-01-04] MEDS: ZINC SULFATE 220 MG CAPSULE PO SCH (09:06)
[2020-01-04] MEDS: CHOLECALCIFEROL (D3) 1,000 UNIT (25 MCG) TABLET PO SCH (09:06)
[2020-01-04] MEDS: ASCORBIC ACID 500 MG TABLET PO SCH (09:06)
[2020-01-04] MEDS: ISOSORBIDE MONONITRATE 30 MG TAB.ER.24H PO SCH (09:06)
[2020-01-04] MEDS: ENOXAPARIN SODIUM INJ 40 MG/0.4 ML DISP.SYRIN SUBCUT SCH (09:07)
[2020-01-04] MEDS: DEXAMETHASONE SOD PHOS INJ 10 MG/1 ML VIAL IV SCH (09:07)
[2020-01-04] MEDS: FUROSEMIDE INJ/PF 40 MG/4 ML SDV IV SCH ×2 (09:07→21:35)
[2020-01-04] MEDS: LEVOFLOXACIN 750 MG TABLET PO SCH (09:07)
[2020-01-04] MEDS ORDERED: INSULIN GLARGINE,HUM.REC.ANLOG 1,000 UNIT/10 ML VIAL (PYX) SUBCUT ONE (09:55)
[2020-01-04] MEDS ORDERED: CYCLOBENZAPRINE HCL 10 MG TABLET PO SCH (10:00)
[2020-01-04] MEDS ORDERED: INSULIN GLARGINE,HUM.REC.ANLOG 1,000 UNIT/10 ML VIAL SUBCUT SCH ×2 (10:00)
--- NOTE | 2020-01-04 12:14 | PDOC PROGRESS REPORT ---
Subjective Progress Note for:: 01/04/20 Subjective:: As per admitting physician DAYTON MENDOZA is a 39 year old female with a past medical history of dilated cardiomyopathy, COPD on 3 L intranasal oxygen at home who presents with 2 days duration of worsening shortness of breath, with associated cough productive of scanty sputum and mild subjective fever. Patient states that she was evaluated at this ER a day ago for a similar complaint and was discharged improved after she was given breathing treatment and Lasix but this morning symptoms started to get progressively worse again. She states that she has a longstanding shortness of breath due to her underlying medical condition. She has apnea and PND. She uses CPAP at home. She also endorses nausea and one episode of vomiting of ingested matter but denies any abdominal pain, constipation or diarrhea. She denies any sick contact history Reason For Visit: PNEUMONIA Physical Exam Vital Signs: Temp Pulse Resp BP Pulse Ox 98.6 F 70 20 115/63 100 01/04/20 10:52 01/04/20 10:52 01/04/20 10:52 01/04/20 10:52 01/04/20 10:52 Intake & Output 01/03/20 01/04/20 01/05/20 06:59 06:59 06:59 Intake Total 150 1178 Output Total 0 Balance 150 1178 Weight 147.1 kg 143.7 kg Results Laboratory Results: 01/04/20 05:10 01/04/20 05:10 01/04/20 01/04/20 05:10 05:10 WBC 18.8 H RBC 4.92 Hgb 12.7 Hct 38.0 MCV 77 L MCH 25.8 L MCHC 33.5 RDW 16.5 H Plt Count 229 Sodium 135.1 L Potassium 4.1 Chloride 101 Carbon Dioxide 25 Anion Gap 9 BUN 21 H Creatinine 0.62 Est GFR ( Amer) > 60 Glucose 288 H Calcium 8.8 01/03/20 01/03/20 00:18 00:18 Creatine Kinase 124 Troponin I 0.091 NT-Pro-B Natriuret Pep 2130 H Impressions: Chest/Abdomen CTA 01/03/20 00:40 IMPRESSION: 1. No CT evidence of acute PE. 2. Interstitial thickening with groundglass opacities with consolidations, worse along the lower lobes. This may represent pulmonary edema and/or pneumonia. Viral pneumonia is not excluded. Small bilateral pleural effusions. 3. Mediastinal lymphadenopathy, likely reactive. Assessment and Plan - Diagnosis (1) Acute and chronic respiratory failure with hypoxia Is this a current diagnosis for this admission?: Yes Plan: Moderate improvement. SPO2 WNL on 2 L nasal cannula. On arrival patient was saturating 88- 90% on 3 L intranasal oxygen Likely due to COPD exacerbation precipitated by pneumonia and underlying CHF. CT chest on admission positive for interstitial thickening with groundglass opacity with consolidations worse along the lower lobes. Initially was suspected to have COVID-19. COVID-19 serology is negative. Day 3 IV antibiotics. Day 3 IV levofloxacin. Continue empiric IV antibiotics, LAMA, LABA, ICS, p.o. steroids, incentive spirometry, flutter valve, as needed BiPAP, duo nebs, pulmonary toileting. (2) COVID-19 virus test result unknown Is this a current diagnosis for this admission?: Yes Plan: Patient is a high risk group with multiple comorbidities Presented with cough, fever, shortness of breath CTA chest shows bibasilar groundglass opacities with consolidation concerning for possible viral pneumonia COVID-19 serology negative. (3) Acute on chronic systolic (congestive) heart failure Is this a current diagnosis for this admission?: Yes Plan: Patient has a history of dilated cardiomyopathy Currently presented with worsening of shortness of breath, orthopnea BNP elevated 2130 CTA chest showed interstitial thickening Placed her on Lasix 40 mg IV twice daily Daily weights, strict I&O's, fluid restriction Will continue monitoring response to treatments (4) Pneumonia Qualifiers: Pneumonia type: due to unspecified organism Laterality: bilateral Lung l ocation: lower lobe of lung Qualified Code(s): J18.9 - Pneumonia, unspecified organism Is this a current diagnosis for this admission?: Yes Plan: Plan as per #1. (5) COPD exacerbation Is this a current diagnosis for this admission?: Yes Plan: Plan as per #1. (6) Morbid obesity with BMI of 40.0-44.9, adult Is this a current diagnosis for this admission?: Yes Plan: BMI 44.2. Diet and lifestyle modification recommended. (7) Elevated troponin Is this a current diagnosis for this admission?: Yes Plan: Denies any anginal symptoms. Mild troponin elevation, at baseline. Cardiology assaulted. No intervention planned at this time. Please refer to cardiology note. Continue antiplatelets, beta-blockers, ISABEL, statins. - Time Time Spent with patient: 25-34 minutes Medications reviewed and adjusted accordingly: Yes Anticipated Discharge Disposition: Home, Self Care Anticipated Discharge Timeframe: within 24 hours
[2020-01-04] MEDS ORDERED: IPRATROPIUM/ALBUTEROL 0.5-2.5 MG/3 ML AMPUL NEB PRN (12:30)
[2020-01-04] MEDS: IPRATROPIUM/ALBUTEROL 0.5-2.5 MG/3 ML AMPUL NEB SCH ×2 (14:22→20:51)
[2020-01-04] MEDS: CYCLOBENZAPRINE HCL 10 MG TABLET PO SCH ×2 (14:51→17:00)
[2020-01-04] MEDS: METFORMIN HCL 500 MG TABLET PO SCH (16:39)
[2020-01-04] MEDS ORDERED: (PENDING PHARMACY ID) (Metformin Hcl [Metformin Hcl] 1,000 MG) PO SCH (17:00)
[2020-01-04] MEDS: GABAPENTIN 300 MG CAPSULE PO SCH (21:36)
[2020-01-04] MEDS: ZOLPIDEM TARTRATE 5 MG TABLET PO SCH (21:37)
[2020-01-05 06:15] LABS: HEMATOCRIT 37.9 % (36.0-47.0); HEMOGLOBIN 12.5 g/dL (12.0-15.5); MEAN CORPUSCULAR HEMOGLOBIN 25.6 pg (27.0-33.4); MEAN CORPUSCULAR VOLUME 77 fl (80-97); PLATELET COUNT 217 10^3/uL (150-450); RED CELL DISTRIBUTION WIDTH 16.5 % (11.5-14.0); WHITE BLOOD COUNT 17.1 10^3/uL (4.0-10.5)
[2020-01-05 06:29] LABS: BLOOD UREA NITROGEN 21 mg/dL (7-20); CALCIUM 8.4 mg/dL (8.4-10.2); GLUCOSE 271 mg/dL (75-110); POTASSIUM 3.9 mmol/L (3.6-5.0)
[2020-01-05 06:30] LABS: ANION GAP 9 (5-19); CARBON DIOXIDE 27 mmol/L (22-30); CHLORIDE 99 mmol/L (98-107)
[2020-01-05] MEDS: IPRATROPIUM/ALBUTEROL 0.5-2.5 MG/3 ML AMPUL NEB SCH ×3 (08:14→20:51)
[2020-01-05] MEDS: METFORMIN HCL 500 MG TABLET PO SCH ×2 (08:46→17:32)
[2020-01-05] MEDS: INSULIN LISPRO 100 UNIT/ML 3 ML VIAL SUBCUT SCH ×7 (08:46→21:32)
[2020-01-05] MEDS ORDERED: (PENDING PHARMACY ID) (Empagliflozin [Jardiance] 10 MG) PO SCH (10:00)
[2020-01-05] MEDS: ISOSORBIDE MONONITRATE 30 MG TAB.ER.24H PO SCH (10:40)
[2020-01-05] MEDS: LEVOFLOXACIN 750 MG TABLET PO SCH (10:40)
[2020-01-05] MEDS: FAMOTIDINE 20 MG TABLET PO SCH ×2 (10:41→21:03)
[2020-01-05] MEDS: CYCLOBENZAPRINE HCL 10 MG TABLET PO SCH ×3 (10:41→17:32)
[2020-01-05] MEDS: GABAPENTIN 300 MG CAPSULE PO SCH ×2 (10:41→21:03)
[2020-01-05] MEDS: LORATADINE 10 MG TABLET PO SCH (10:41)
[2020-01-05] MEDS: CARVEDILOL 6.25 MG TABLET PO SCH ×2 (10:41→21:06)
[2020-01-05] MEDS: ZINC SULFATE 220 MG CAPSULE PO SCH (10:45)
[2020-01-05] MEDS: SACUBITRIL/VALSARTAN 49 MG/51 MG TABLET PO SCH ×2 (10:46→17:33)
[2020-01-05] MEDS: FUROSEMIDE INJ/PF 40 MG/4 ML SDV IV SCH ×2 (10:46→21:06)
[2020-01-05] MEDS: ENOXAPARIN SODIUM INJ 40 MG/0.4 ML DISP.SYRIN SUBCUT SCH (10:48)
[2020-01-05] MEDS: INSULIN GLARGINE,HUM.REC.ANLOG 1,000 UNIT/10 ML VIAL SUBCUT SCH (10:49)
--- NOTE | 2020-01-05 16:16 | PDOC PROGRESS REPORT ---
Subjective Progress Note for:: 01/05/20 Subjective:: As per admitting physician DAYTON MENDOZA is a 39 year old female with a past medical history of dilated cardiomyopathy, COPD on 3 L intranasal oxygen at home who presents with 2 days duration of worsening shortness of breath, with associated cough productive of scanty sputum and mild subjective fever. Patient states that she was evaluated at this ER a day ago for a similar complaint and was discharged improved after she was given breathing treatment and Lasix but this morning symptoms started to get progressively worse again. She states that she has a longstanding shortness of breath due to her underlying medical condition. She has apnea and PND. She uses CPAP at home. She also endorses nausea and one episode of vomiting of ingested matter but denies any abdominal pain, constipation or diarrhea. She denies any sick contact history 01/05/2020. No acute events overnight. Moderate improvement of respiration, SPO2 WNL on 2 L. Will having significant leukocytosis. Cough improving. Denies any fever, chills, nausea, vomiting, diarrhea, constipation or any urinary stool. Possible discharge home tomorrow. Reason For Visit: PNEUMONIA Physical Exam Vital Signs: Temp Pulse Resp BP Pulse Ox 98.2 F 84 18 135/84 H 97 01/05/20 11:32 01/05/20 14:15 01/05/20 14:15 01/05/20 11:32 01/05/20 14:15 Intake & Output 01/04/20 01/05/20 01/06/20 06:59 06:59 06:59 Intake Total 1178 500 835 Balance 1178 500 835 Weight 143.7 kg 146.7 kg General appearance: PRESENT: no acute distress, morbidly obese, well-developed, well-nourished Head exam: PRESENT: atraumatic, normocephalic Respiratory exam: PRESENT: clear to auscultation russell, decreased breath sounds. ABSENT: rales, rhonchi, wheezes Cardiovascular exam: PRESENT: RRR. ABSENT: diastolic murmur, rubs, systolic murmur GI/Abdominal exam: PRESENT: normal bowel sounds, soft. ABSENT: distended, guarding, mass, organolmegaly, rebound, tenderness Neurological exam: PRESENT: alert, awake, oriented to person, oriented to place, oriented to time, oriented to situation, CN II-XII grossly intact. ABSENT: motor sensory deficit Results Laboratory Results: 01/05/20 05:15 01/05/20 05:15 01/05/20 01/05/20 05:15 05:15 WBC 17.1 H RBC 4.90 Hgb 12.5 Hct 37.9 MCV 77 L MCH 25.6 L MCHC 33.0 RDW 16.5 H Plt Count 217 Sodium 135.0 L Potassium 3.9 Chloride 99 Carbon Dioxide 27 Anion Gap 9 BUN 21 H Creatinine 0.62 Est GFR ( Amer) > 60 Glucose 271 H Calcium 8.4 01/03/20 01/03/20 00:18 00:18 Creatine Kinase 124 Troponin I 0.091 NT-Pro-B Natriuret Pep 2130 H Impressions: Chest/Abdomen CTA 01/03/20 00:40 IMPRESSION: 1. No CT evidence of acute PE. 2. Interstitial thickening with groundglass opacities with consolidations, worse along the lower lobes. This may represent pulmonary edema and/or pneumonia. Viral pneumonia is not excluded. Small bilateral pleural effusions. 3. Mediastinal lymphadenopathy, likely reactive. Assessment and Plan - Diagnosis (1) Acute and chronic respiratory failure with hypoxia Is this a current diagnosis for this admission?: Yes Plan: Moderate improvement. SPO2 WNL on 2 L nasal cannula. On arrival patient was saturating 88- 90% on 3 L intranasal oxygen Likely due to COPD exacerbation precipitated by pneumonia and underlying CHF. CT chest on admission positive for interstitial thickening with groundglass opacity with consolidations worse along the lower lobes. Initially was suspected to have COVID-19. COVID-19 serology is negative. Day 4 IV antibiotics. Day 4 IV levofloxacin. Continue empiric IV antibiotics, LAMA, LABA, ICS, p.o. steroids, incentive spirometry, flutter valve, as needed BiPAP, duo nebs, pulmonary toileting. (2) COVID-19 virus test result unknown Is this a current diagnosis for this admission?: Yes Plan: Patient is a high risk group with multiple comorbidities Presented with cough, fever, shortness of breath CTA chest shows bibasilar groundglass opacities with consolidation concerning for possible viral pneumonia COVID-19 serology negative. (3) Acute on chronic systolic (congestive) heart failure Is this a current diagnosis for this admission?: Yes Plan: Patient has a history of dilated cardiomyopathy Currently presented with worsening of shortness of breath, orthopnea BNP elevated 2130 CTA chest showed interstitial thickening Placed her on Lasix 40 mg IV twice daily Daily weights, strict I&O's, fluid restriction Will continue monitoring response to treatments (4) Pneumonia Qualifiers: Pneumonia type: due to unspecified organism Laterality: bilateral Lung location: lower lobe of lung Qualified Code(s): J18.9 - Pneumonia, unspecified organism Is this a current diagnosis for this admission?: Yes Plan: Plan as per #1. (5) COPD exacerbation Is this a current diagnosis for this admission?: Yes Plan: Plan as per #1. (6) Morbid obesity with BMI of 40.0-44.9, adult Is this a current diagnosis for this admission?: Yes Plan: BMI 44.2. Diet and lifestyle modification recommended. (7) Elevated troponin Is this a current diagnosis for this admission?: Yes Plan: Denies any anginal symptoms. Mild troponin elevation, at baseline. Cardiology assaulted. No intervention planned at this time. Please refer to cardiology note. Continue antiplatelets, beta-blockers, ISABEL, statins. - Time Time Spent with patient: 25-34 minutes Smoking Cessation Education: 3 to 10 minutes Anticipated Discharge Disposition: Home, Self Care Anticipated Discharge Timeframe: within 24 hours
[2020-01-05] MEDS: ZOLPIDEM TARTRATE 5 MG TABLET PO SCH (21:03)
[2020-01-05] MEDS: ONDANSETRON HCL INJ/PF 4 MG/2 ML SDV IV PRN (21:22)
[2020-01-06 05:42] LABS: HEMATOCRIT 38.8 % (36.0-47.0); HEMOGLOBIN 13.1 g/dL (12.0-15.5); MEAN CORPUSCULAR HEMOGLOBIN 25.8 pg (27.0-33.4); MEAN CORPUSCULAR HGB CONC 33.7 g/dL (32.0-36.0); MEAN CORPUSCULAR VOLUME 77 fl (80-97); PLATELET COUNT 194 10^3/uL (150-450); RED BLOOD COUNT 5.06 10^6/uL (3.72-5.28); RED CELL DISTRIBUTION WIDTH 16.7 % (11.5-14.0); WHITE BLOOD COUNT 15.5 10^3/uL (4.0-10.5)
[2020-01-06 06:09] LABS: ANION GAP 5 (5-19); BLOOD UREA NITROGEN 22 mg/dL (7-20); CALCIUM 8.2 mg/dL (8.4-10.2); CARBON DIOXIDE 28 mmol/L (22-30); CHLORIDE 100 mmol/L (98-107); GLUCOSE 168 mg/dL (75-110); POTASSIUM 3.7 mmol/L (3.6-5.0)
[2020-01-06] MEDS: IPRATROPIUM/ALBUTEROL 0.5-2.5 MG/3 ML AMPUL NEB SCH ×3 (08:06→20:24)
[2020-01-06] MEDS: INSULIN LISPRO 100 UNIT/ML 3 ML VIAL SUBCUT SCH ×7 (09:14→21:46)
[2020-01-06] MEDS: GABAPENTIN 300 MG CAPSULE PO SCH ×2 (09:15→21:39)
[2020-01-06] MEDS: FAMOTIDINE 20 MG TABLET PO SCH ×2 (09:15→21:39)
[2020-01-06] MEDS: ISOSORBIDE MONONITRATE 30 MG TAB.ER.24H PO SCH (09:16)
[2020-01-06] MEDS: LEVOFLOXACIN 750 MG TABLET PO SCH (09:16)
[2020-01-06] MEDS: CYCLOBENZAPRINE HCL 10 MG TABLET PO SCH ×3 (09:16→18:01)
[2020-01-06] MEDS: METFORMIN HCL 500 MG TABLET PO SCH ×2 (09:16→16:37)
[2020-01-06] MEDS: CARVEDILOL 6.25 MG TABLET PO SCH ×2 (09:17→21:39)
[2020-01-06] MEDS: INSULIN GLARGINE,HUM.REC.ANLOG 1,000 UNIT/10 ML VIAL SUBCUT SCH (09:17)
[2020-01-06] MEDS: ENOXAPARIN SODIUM INJ 40 MG/0.4 ML DISP.SYRIN SUBCUT SCH (09:17)
[2020-01-06] MEDS: LORATADINE 10 MG TABLET PO SCH (09:17)
[2020-01-06] MEDS: FUROSEMIDE INJ/PF 40 MG/4 ML SDV IV SCH ×2 (09:18→21:39)
[2020-01-06] MEDS: SACUBITRIL/VALSARTAN 49 MG/51 MG TABLET PO SCH ×2 (09:20→18:01)
[2020-01-06] MEDS: ZINC SULFATE 220 MG CAPSULE PO SCH (09:20)
--- NOTE | 2020-01-06 10:56 | PDOC PROGRESS REPORT ---
Subjective Progress Note for:: 01/06/20 Subjective:: As per admitting physician DAYTON MENDOZA is a 39 year old female with a past medical history of dilated cardiomyopathy, COPD on 3 L intranasal oxygen at home who presents with 2 days duration of worsening shortness of breath, with associated cough productive of scanty sputum and mild subjective fever. Patient states that she was evaluated at this ER a day ago for a similar complaint and was discharged improved after she was given breathing treatment and Lasix but this morning symptoms started to get progressively worse again. She states that she has a longstanding shortness of breath due to her underlying medical condition. She has apnea and PND. She uses CPAP at home. She also endorses nausea and one episode of vomiting of ingested matter but denies any abdominal pain, constipation or diarrhea. She denies any sick contact history 01/05/2020. No acute events overnight. Moderate improvement of respiration, SPO2 WNL on 2 L. Will having significant leukocytosis. Cough improving. Denies any fever, chills, nausea, vomiting, diarrhea, constipation or any urinary stool. Possible discharge home tomorrow. 01/06/2020. No acute events overnight. Mild improvement of respiratory symptoms, still complaining of dyspnea on exertion and cough, denies any fever, chills, nausea, vomiting, diarrhea, constipation or any urinary symptoms. Possible discharge home tomorrow. Reason For Visit: PNEUMONIA Physical Exam Vital Signs: Temp Pulse Resp BP Pulse Ox 98.4 F 77 22 H 121/77 100 01/06/20 08:28 01/06/20 08:28 01/06/20 08:28 01/06/20 08:28 01/06/20 08:28 Intake & Output 01/05/20 01/06/20 01/07/20 06:59 06:59 06:59 Intake Total 500 1575 Balance 500 1575 Weight 146.7 kg 145.2 kg General appearance: PRESENT: no acute distress, morbidly obese, well-developed, well-nourished Head exam: PRESENT: atraumatic, normocephalic Respiratory exam: PRESENT: clear to auscultation russell. ABSENT: rales, rhonchi, wheezes Cardiovascular exam: PRESENT: RRR. ABSENT: diastolic murmur, rubs, systolic murmur GI/Abdominal exam: PRESENT: normal bowel sounds, soft. ABSENT: distended, guarding, mass, organolmegaly, rebound, tenderness Neurological exam: PRESENT: alert, awake, oriented to person, oriented to place, oriented to time, oriented to situation, CN II-XII grossly intact. ABSENT: motor sensory deficit Results Laboratory Results: 01/06/20 05:29 01/06/20 05:29 01/06/20 01/06/20 05:29 05:29 WBC 15.5 H RBC 5.06 Hgb 13.1 Hct 38.8 MCV 77 L MCH 25.8 L MCHC 33.7 RDW 16.7 H Plt Count 194 Sodium 132.9 L Potassium 3.7 Chloride 100 Carbon Dioxide 28 Anion Gap 5 BUN 22 H Creatinine 0.70 Est GFR ( Amer) > 60 Glucose 168 H Calcium 8.2 L 01/03/20 01/03/20 00:18 00:18 Creatine Kinase 124 Troponin I 0.091 NT-Pro-B Natriuret Pep 2130 H Impressions: Chest/Abdomen CTA 01/03/20 00:40 IMPRESSION: 1. No CT evidence of acute PE. 2. Interstitial thickening with groundglass opacities with consolidations, worse along the lower lobes. This may represent pulmonary edema and/or pneumonia. Viral pneumonia is not excluded. Small bilateral pleural effusions. 3. Mediastinal lymphadenopathy, likely reactive. Assessment and Plan - Diagnosis (1) Acute and chronic respiratory failure with hypoxia Is this a current diagnosis for this admission?: Yes Plan: Moderate improvement. SPO2 WNL on 2 L nasal cannula. On arrival patient was saturating 88- 90% on 3 L intranasal oxygen Likely due to COPD exacerbation precipitated by pneumonia and underlying CHF. CT chest on admission positive for interstitial thickening with groundglass opacity with consolidations worse along the lower lobes. Initially was suspected to have COVID-19. COVID-19 serology is negative. Day 5 IV antibiotics. Day 5 IV levofloxacin. Continue empiric IV antibiotics, LAMA, LABA, ICS, p.o. steroids, incentive spirometry, flutter valve, as needed BiPAP, duo nebs, pulmonary toileting. (2) COVID-19 virus test result unknown Is this a current diagnosis for this admission?: Yes Plan: Patient is a high risk group with multiple comorbidities Presented with cough, fever, shortness of breath CTA chest shows bibasilar groundglass opacities with consolidation concerning for possible viral pneumonia COVID-19 serology negative. (3) Acute on chronic systolic (congestive) heart failure Is this a current diagnosis for this admission?: Yes Plan: Patient has a history of dilated cardiomyopathy Currently presented with worsening of shortness of breath, orthopnea BNP elevated 2130 CTA chest showed interstitial thickening Placed her on Lasix 40 mg IV twice daily Daily weights, strict I&O's, fluid restriction Will continue monitoring response to treatments (4) Pneumonia Qualifiers: Pneumonia type: due to unspecified organism Laterality: bilateral Lung location: lower lobe of lung Qualified Code(s): J18.9 - Pneumonia, unspecified organism Is this a current diagnosis for this admission?: Yes Plan: Plan as per #1. (5) COPD exacerbation Is this a current diagnosis for this admission?: Yes Plan: Plan as per #1. (6) Morbid obesity with BMI of 40.0-44.9, adult Is this a current diagnosis for this admission?: Yes Plan: BMI 44.2. Diet and lifestyle modification recommended. (7) Elevated troponin Is this a current diagnosis for this admission?: Yes Plan: Denies any anginal symptoms. Mild troponin elevation, at baseline. Cardiology assaulted. No intervention planned at this time. Please refer to cardiology note. Continue antiplatelets, beta-blockers, ISABEL, statins. - Time Time Spent with patient: 25-34 minutes Smoking Cessation Education: 3 to 10 minutes Anticipated Discharge Disposition: Home with Home Health Anticipated Discharge Timeframe: within 24 hours
[2020-01-06] MEDS: ONDANSETRON HCL INJ/PF 4 MG/2 ML SDV IV PRN ×2 (12:10→21:46)
[2020-01-06] MEDS: ZOLPIDEM TARTRATE 5 MG TABLET PO SCH (21:39)
[2020-01-07] MEDS: METFORMIN HCL 500 MG TABLET PO SCH ×2 (08:15→17:07)
[2020-01-07] MEDS: INSULIN LISPRO 100 UNIT/ML 3 ML VIAL SUBCUT SCH ×6 (08:16→17:06)
[2020-01-07] MEDS: IPRATROPIUM/ALBUTEROL 0.5-2.5 MG/3 ML AMPUL NEB SCH ×2 (09:27→14:30)
[2020-01-07] MEDS: ENOXAPARIN SODIUM INJ 40 MG/0.4 ML DISP.SYRIN SUBCUT SCH (09:55)
[2020-01-07] MEDS: FUROSEMIDE INJ/PF 40 MG/4 ML SDV IV SCH (09:55)
[2020-01-07] MEDS: CARVEDILOL 6.25 MG TABLET PO SCH (09:56)
[2020-01-07] MEDS: CYCLOBENZAPRINE HCL 10 MG TABLET PO SCH ×2 (09:56→13:27)
[2020-01-07] MEDS: ISOSORBIDE MONONITRATE 30 MG TAB.ER.24H PO SCH (09:56)
[2020-01-07] MEDS: FAMOTIDINE 20 MG TABLET PO SCH (09:56)
[2020-01-07] MEDS: LEVOFLOXACIN 750 MG TABLET PO SCH (09:56)
[2020-01-07] MEDS: GABAPENTIN 300 MG CAPSULE PO SCH (09:57)
[2020-01-07] MEDS: LORATADINE 10 MG TABLET PO SCH (09:57)
[2020-01-07] MEDS: SACUBITRIL/VALSARTAN 49 MG/51 MG TABLET PO SCH (09:58)
[2020-01-07] MEDS: ZINC SULFATE 220 MG CAPSULE PO SCH (09:58)
[2020-01-07] MEDS: INSULIN GLARGINE,HUM.REC.ANLOG 1,000 UNIT/10 ML VIAL SUBCUT SCH (09:59)
[2020-01-07] MEDS: ONDANSETRON HCL INJ/PF 4 MG/2 ML SDV IV PRN (10:23)
[2020-01-07 16:20] VITALS: BP 111/78
--- NOTE | 2020-01-21 10:25 | PDOC DISCHARGE SUMMARY ---
Impression - Admit/DC Date/PCP Admission Date/Primary Care Provider: 01/03/20 10:13 BRISEIDA VILLALOBOS NP Discharge Date: 01/07/20 - Discharge Diagnosis (1) Acute and chronic respiratory failure with hypoxia Is this a current diagnosis for this admission?: Yes (2) COVID-19 virus test result unknown Is this a current diagnosis for this admission?: Yes (3) Acute on chronic systolic (congestive) heart failure Is this a current diagnosis for this admission?: Yes (4) Pneumonia Is this a current diagnosis for this admission?: Yes (5) COPD exacerbation Is this a current diagnosis for this admission?: Yes (6) Morbid obesity with BMI of 40.0-44.9, adult Is this a current diagnosis for this admission?: Yes (7) Elevated troponin Is this a current diagnosis for this admission?: Yes - Additional Information Resuscitation Status: Full Code Discharge Diet: Cardiac, Diabetic Discharge Activity: Activity As Tolerated, Balance Activity w/Rest, Weigh Daily Referrals: ALYSIA MEJIA MD [ACTIVE PROVISIONAL STAFF] - 01/10/20 8:30 am BRISEIDA VILLALOBOS NP [Primary Care Provider] - 01/15/20 11:00 am (with Briseida Villalobos) Prescriptions: Isosorbide Mononitrate [Imdur 30 mg Tablet.er] 30 mg PO DAILY 30 Days #30 tab.er.24h Furosemide [Lasix 20 mg Tablet] 20 mg PO BID 30 Days #60 tablet Levofloxacin [Levaquin 750 mg Tablet] 750 mg PO DAILY 2 Days #2 tab Home Medications: Carvedilol [Coreg 6.25 mg Tablet] 6.25 mg PO Q12 12/22/18 Cyclobenzaprine HCl [Flexeril 10 mg Tablet] 10 mg PO TID 12/22/18 Loratadine [Claritin 10 mg Tablet] 10 mg PO DAILY 12/22/18 Epinephrine 0.3 mg IM ASDIR PRN 09/06/19 Insulin Glargine,Hum.rec.anlog [Lantus Insulin 100 Unit/mL Insulin Pen] 80 unit SUBCUT QAM 09/06/19 Insulin Lispro [Humalog Kwikpen U-100] 20 unit SQ AC MDD 80 UNITS 09/06/19 Metformin HCl 1,000 mg PO BIDBS 09/06/19 Diclofenac Sodium 1 applic TOP BIDP PRN 01/03/20 Empagliflozin [Jardiance] 10 mg PO DAILY 01/03/20 Gabapentin [Neurontin 300 mg Capsule] 600 mg PO Q12 01/03/20 Hydrocortisone [Hydrocortisone 1% Cream 28.35 gm] 1 applic TP BID 01/03/20 Insulin Lispro [Humalog Insulin (Lispro) 100 unit/mL] 0 unit SUBCUT .SLD SCALE MDD 80 UNITS 01/03/20 Zolpidem Tartrate [Ambien 5 mg Tablet] 10 mg PO QHS 01/03/20 Furosemide [Lasix 20 mg Tablet] 20 mg PO BID 30 Days #60 tablet 01/07/20 Isosorbide Mononitrate [Imdur 30 mg Tablet.er] 30 mg PO DAILY 30 Days #30 tab.er.24h 01/07/20 Levofloxacin [Levaquin 750 mg Tablet] 750 mg PO DAILY 2 Days #2 tab 01/07/20 History of Present Illiness History of Present Illness: As per admitting physician DAYTON MENDOZA is a 39 year old female with a past medical history of dilated cardiomyopathy, COPD on 3 L intranasal oxygen at home who presents with 2 days duration of worsening shortness of breath, with ass ociated cough productive of scanty sputum and mild subjective fever. Patient states that she was evaluated at this ER a day ago for a similar complaint and was discharged improved after she was given breathing treatment and Lasix but this morning symptoms started to get progressively worse again. She states that she has a longstanding shortness of breath due to her underlying medical condition. She has apnea and PND. She uses CPAP at home. She also endorses nausea and one episode of vomiting of ingested matter but denies any abdominal pain, constipation or diarrhea. She denies any sick contact history Hospital Course Hospital Course: (1) Acute and chronic respiratory failure with hypoxia Moderate improvement. SPO2 WNL on 2 L nasal cannula. On arrival patient was saturating 88- 90% on 3 L intranasal oxygen Likely due to COPD exacerbation precipitated by pneumonia and underlying CHF. CT chest on admission positive for interstitial thickening with groundglass opacity with consolidations worse along the lower lobes. Initially was suspected to have COVID-19. COVID-19 serology is negative. Day 5 IV antibiotics. Day 5 IV levofloxacin. Continue empiric IV antibiotics, LAMA, LABA, ICS, p.o. steroids, incentive spirometry, flutter valve, as needed BiPAP, duo nebs, pulmonary toileting. (2) COVID-19 virus test result unknown Patient is a high risk group with multiple comorbidities Presented with cough, fever, shortness of breath CTA chest shows bibasilar groundglass opacities with consolidation concerning for possible viral pneumonia COVID-19 serology negative. (3) Acute on chronic systolic (congestive) heart failure Patient has a history of dilated cardiomyopathy Currently presented with worsening of shortness of breath, orthopnea BNP elevated 2130 CTA chest showed interstitial thickening Placed her on Lasix 40 mg IV twice daily Daily weights, strict I&O's, fluid restriction Will continue monitoring response to treatments (4) Pneumonia Plan as per #1. (5) COPD exacerbation Plan as per #1. (6) Morbid obesity with BMI of 40.0-44.9, adult BMI 44.2. Diet and lifestyle modification recommended. (7) Elevated troponin Denies any anginal symptoms. Mild troponin elevation, at baseline. Cardiology assaulted. No intervention planned at this time. Please refer to cardiology note. Continue antiplatelets, beta-blockers, ISABEL, statins. Physical Exam Vital Signs: Temp Pulse Resp BP Pulse Ox 98.4 F 91 16 111/78 98 01/07/20 16:17 01/07/20 16:17 01/07/20 16:17 01/07/20 16:17 01/07/20 16:17 General appearance: PRESENT: no acute distress, morbidly obese, well-developed, well-nourished Head exam: PRESENT: atraumatic, normocephalic Respiratory exam: PRESENT: clear to auscultation russell. ABSENT: rales, rhonchi, wheezes Cardiovascular exam: PRESENT: RRR. ABSENT: diastolic murmur, rubs, systolic murmur GI/Abdominal exam: PRESENT: normal bowel sounds, soft. ABSENT: distended, guarding, mass, organolmegaly, rebound, tenderness Neurological exam: PRESENT: alert, awake, oriented to person, oriented to place, oriented to time, oriented to situation, CN II-XII grossly intact. ABSENT: motor sensory deficit Results Laboratory Results: WBC 15.5 10^3/uL (4.0-10.5) H 01/06/20 05:29 RBC 5.06 10^6/uL (3.72-5.28) 01/06/20 05:29 Hgb 13.1 g/dL (12.0-15.5) 01/06/20 05: Hct 38.8 % (36.0-47.0) 01/06/20 05: MCV 77 fl (80-97) L 01/06/20 05: MCH 25.8 pg (27.0-33.4) L 01/06/20 05: MCHC 33.7 g/dL (32.0-36.0) 01/06/20 05: RDW 16.7 % (11.5-14.0) H 01/06/20 05:29 Plt Count 194 10^3/uL (150-450) 01/06/20 05:29 Lymph % (Auto) 18.5 % (13-45) 01/03/20 00:18 [place] % (Auto) 5.2 % (3-13) 01/03/20 00:18 Eos % (Auto) 1.5 % (0-6) 01/03/20 00:18 Baso % (Auto) 0.4 % (0-2) 01/03/20 00:18 Absolute Neuts (auto) 10.8 10^3/uL (1.7-8.2) H 01/03/20 00:18 Absolute Lymphs (auto) 2.7 10^3/uL (0.5-4.7) 01/03/20 00:18 Absolute Monos (auto) 0.7 10^3/uL (0.1-1.4) 01/03/20 00:18 Absolute Eos (auto) 0.2 10^3/uL (0.0-0.6) 01/03/20 00:18 Absolute Basos (auto) 0.1 10^3/uL (0.0-0.2) 01/03/20 00:18 Seg Neutrophils % 74.4 % (42-78) 01/03/20 00:18 PT 14.8 SEC (11.4-15.4) 01/03/20 00:18 INR 1.14 01/03/20 00:18 APTT 36.8 SEC (23.5-35.8) H 01/03/20 00:18 Sodium 132.9 mmol/L (137-145) L 10/25/20 05:29 Potassium 3.7 mmol/L (3.6-5.0) 01/06/20 05:29 Chloride 100 mmol/L (98-107) 01/06/20 05:29 Carbon Dioxide 28 mmol/L (22-30) 01/06/20 05:29 Anion Gap 5 (5-19) 01/06/20 05:29 BUN 22 mg/dL (7-20) H 01/06/20 05:29 Creatinine 0.70 mg/dL (0.52-1.25) 01/06/20 05:29 Est GFR ( Amer) > 60 (>60) 01/06/20 05:29 Est GFR (MDRD) Non-Af > 60 (>60) 01/06/20 05:29 Glucose 168 mg/dL (75-110) H 01/06/20 05:29 POC Glucose 159 mg/dL (70-110) H 01/07/20 16:45 Calcium 8.2 mg/dL (8.4-10.2) L 01/06/20 05:29 Ferritin 29.00 ng/mL (6.2-137.0) 01/03/20 05:44 Total Bilirubin 0.8 mg/dL (0.2-1.3) 01/03/20 00:18 Direct Bilirubin 0.4 mg/dL (0.0-0.4) 01/03/20 00:18 Neonat Total Bilirubin Not Reportable 01/03/20 00:18 Neonat Direct Bilirubin Not Reportable 01/03/20 00:18 Neonat Indirect Bili Not Reportable 01/03/20 00:18 AST 19 U/L (14-36) 01/03/20 00:18 ALT 21 U/L (<35) 01/03/20 00:18 Alkaline Phosphatase 75 U/L (38-126) 01/03/20 00:18 Lactate Dehydrogenase 252 U/L (120-246) H 01/03/20 05:44 Creatine Kinase 124 U/L (30-135) 01/03/20 00:18 Troponin I 0.091 ng/mL 01/03/20 00:18 C-Reactive Protein 15.0 mg/L (<10.0) H 01/03/20 05:44 NT-Pro-B Natriuret Pep 2130 pg/mL (<125) H 01/03/20 00:18 Total Protein 6.7 g/dL (6.3-8.2) 01/03/20 00:18 Albumin 3.9 g/dL (3.5-5.0) 01/03/20 00:18 COVID-19 Source See comment 01/03/20 03:09 COVID-19 (DI) Not Detected (Not Detect) 01/03/20 03:09 01/03/20 00:18 Troponin I 0.091 NT-Pro-B Natriuret Pep 2130 H Impressions: Chest/Abdomen CTA 01/03/20 00:40 IMPRESSION: 1. No CT evidence of acute PE. 2. Interstitial thickening with groundglass opacities with consolidations, worse along the lower lobes. This may represent pulmonary edema and/or pneumonia. Viral pneumonia is not excluded. Small bilateral pleural effusions. 3. Mediastinal lymphadenopathy, likely reactive. Stroke Is this a Stroke Patient?: No Acute Heart Failure Is this a Heart Failure Patient?: No
== END 2020-01-07 17:20 | disposition home or self-care (01) | DRG 291 ==
LOC: ER 00:09 → INTOOBSV 02:57 → EH 02:57 → 3N 04:58 → OBSVTOIN 10:13 → 4N 01-04 09:38
PROVIDERS: ADMIT Student in an Organized Health Care Education/Training Program; ATTEND Internal Medicine
PROC: 5A09557 Assistance with Respiratory Ventilation, Greater than 96 Consecutive Hours, Continuous Positive Airway Pressure (ICD-10-PCS; principal; 2020-01-03)
DX: I11.0 Hypertensive heart disease with heart failure (principal); J18.9 Pneumonia, unspecified organism; J96.21 Acute and chronic respiratory failure with hypoxia; J44.1 Chronic obstructive pulmonary disease with (acute) exacerbation; Z68.42 Body mass index [BMI] 45.0-49.9, adult; I50.23 Acute on chronic systolic (congestive) heart failure; I42.0 Dilated cardiomyopathy; Z20.828 Contact with and (suspected) exposure to other viral communicable diseases; E11.65 Type 2 diabetes mellitus with hyperglycemia; I48.0 Paroxysmal atrial fibrillation; E78.00 Pure hypercholesterolemia, unspecified; F31.9 Bipolar disorder, unspecified; G47.30 Sleep apnea, unspecified; F41.8 Other specified anxiety disorders; E66.01 Morbid (severe) obesity due to excess calories; F17.210 Nicotine dependence, cigarettes, uncomplicated; Z95.0 Presence of cardiac pacemaker; Z86.711 Personal history of pulmonary embolism; Z99.81 Dependence on supplemental oxygen; Z79.4 Long term (current) use of insulin; Z79.891 Long term (current) use of opiate analgesic; Z79.899 Other long term (current) drug therapy; R79.89 Other specified abnormal findings of blood chemistry; Z82.49 Family history of ischemic heart disease and other diseases of the circulatory system; Z83.3 Family history of diabetes mellitus; Z88.0 Allergy status to penicillin; Z91.030 Bee allergy status
CPT/HCPCS: 36415; 71275; 80048; 80053; 82550; 82728; 82962; 83615; 83880; 84484; 85025; 85027; 85610; 85730; 86140; 87040; 87635; 93005; 93010; 94640; 94660; 96365; 96366; 96367; 96375; 99285; C9803; G0378; J1100; J1170; J1650; J1815; J1940; J1956; J2060; J2405; J3370; J3490; S0028